=== PATIENT | female | born 1935 | race Caucasian/White ===

== ENCOUNTER 2017-04-20 10:01 | Inpatient (IN) | payer MEDICAID ==
[~2017-04-20] VITALS: Ht 165.1 cm; Wt 57.2 kg
[2017-04-20] MEDS ORDERED: ASPIRIN 81 MG TAB PO STA (10:07)
[2017-04-20 10:39] VITALS: Ht 165.1 cm; Wt 57.2 kg
[2017-04-20] MEDS ORDERED: SOD CHLORIDE 0.9% 250 ML IV ONE (10:59)
--- NOTE | 2017-04-20 11:46 | RADRPT ---
PROCEDURE: XR Chest. CLINICAL INDICATION: Chest pain TECHNIQUE: Single portable view of the chest was obtained COMPARISON: None FINDINGS: The heart is enlarged. There are scattered bilateral perihilar atelectatic changes. There is no focal consolidation. There is no pleural effusion or pneumothorax. RPTAT: AA IMPRESSION: Mild Cardiomegaly. Scattered bilateral perihilar linear atelectatic changes. .Ruben Quinn MD, MD Date Time Electronically viewed and signed by .Ruben Quinn MD, MD on 04/20/2017 11:46 .S/
--- NOTE | 2017-04-20 12:54 | ERD ---
ER Documentation Chief Complaint Chief Complaint PT BIBA FOR SOB X 1 DAY, 02 SAT IS 100% HPI This is a 81-year-old female who speaks Urdu. An language interpreter was used. The patient describes shortness of breath for approximately 24 hours. She states that she was in a parking lot just prior to arrival became short of breath. Patient denied any chest pain or chest pressure. She denies any vomiting, hematemesis or melena. She denies any history of anemia. No fevers or chills or cough. She does note increasing social stressors recently. Symptoms are improving upon arrival. ROS All systems reviewed and are negative except as per history of present illness. Medications Home Meds No Active Prescriptions or Reported Meds Allergies Allergies: Coded Allergies: No Known Allergy (Unverified , 04/20/17) PMhx/Soc Medical and Surgical Hx: pt denies Medical Hx, pt denies Surgical Hx Hx Alcohol Use: No Hx Substance Use: No Hx Tobacco Use: No Smoking Status: Never smoker FmHx Family History: No diabetes Physical Exam Vitals Vital Signs Date Time Temp Pulse Resp B/P Pulse Ox O2 Delivery O2 Flow Rate FiO2 04/20/17 12:25 63 29 125/47 100 Room Air 04/20/17 10:39 98.6 71 25 125/47 100 Physical Exam General: Well developed, well nourished, no acute distress Head: Normocephalic, atraumatic. Eyes: Pupils equally reactive, EOM intact ENT: Moist mucous membranes Neck: Supple, no lymphadenopathy Respiratory: Lungs clear bilaterally, no distress Cardiovascular: RRR, no murmurs, rubs, or gallops Abdominal: Soft, non-tender, non-distended, no peritoneal signs : Deferred MSK: No edema, no unilateral swelling, 5/5 strength Neurologic: Alert and oriented, moving all extremities, normal speech, no focal weakness, no cerebellar signs Skin: No rash Psych: Anxious Result Diagram: 04/20/17 1020 04/20/17 1020 Results 24 hrs Laboratory Tests Test 04/20/17 10:20 White Blood Count 8.210^3/ul Red Blood Count 3.3610^6/ul Hemoglobin 6.5g/dl Hematocrit 23.1% Mean Corpuscular Volume 68.8fl Mean Corpuscular Hemoglobin 19.3pg Mean Corpuscular Hemoglobin Concent 28.1g/dl Red Cell Distribution Width 19.0% Platelet Count 02500^3/UL Mean Platelet Volume 8.6fl Neutrophils % % Lymphocytes % % Monocytes % % Eosinophils % % Basophils % % Nucleated Red Blood Cells % 0.4/100WBC Neutrophils # 10^3/ul Lymphocytes # 10^3/ul Monocytes # 10^3/ul Eosinophils # 10^3/ul Basophils # 10^3/ul Nucleated Red Blood Cells # 10^3/ul Sodium Level 142mmol/L Potassium Level 4.0mmol/L Chloride Level 108mmol/L Carbon Dioxide Level 25mmol/L Anion Gap 13 Blood Urea Nitrogen 13mg/dl Creatinine 0.97mg/dl Glucose Level 173mg/dl Calcium Level 9.0mg/dl Troponin I < 0.012ng/ml B-Type Natriuretic Peptide 294PG/ML Current Medications Medications (Trade) Dose Ordered Sig/Jaylen Route PRN Reason Start Time Stop Time Status Last Admin Dose Admin Aspirin 162 mg 162 mg ONCE STAT PO 04/20/17 10:07 04/20/17 10:08 DC 04/20/17 10:35 Sodium Chloride (NS) 250 ml @ 0 mls/hr Q0M ONCE IV 04/20/17 10:59 04/20/17 11:03 DC Ondansetron HCl (Zofran Inj) 4 mg ER BRIDGE PRN IV NAUSEA AND/OR VOMITING 04/20/17 13:00 04/21/17 12:59 Acetaminophen (Tylenol Tab) 650 mg ER BRIDGE PRN PO MILD PAIN/FEVER 04/20/17 13:00 04/21/17 12:59 Procedures/MDM EKG, MONITORS, & DIAGNOSTIC IMAGING: EKG: I reviewed and interpreted a 12-lead EKG. Rhythm: Normal sinus rhythm Ectopy: None Intervals: No abnormalities ST segments: No elevations or depressions T waves: No contiguous inversions Chest x-ray: I reviewed and interpreted a 1 view of the chest Mediastinum: No enlargement Cardiac silhouette: No cardiomegaly Airspace: Clear lung diop bilaterally without evidence of pneumothorax Bones: No evidence of fracture LAB INTERPRETATION: CBC shows evidence of anemia, no evidence of cardiac ischemia MEDICAL DECISION MAKING: The patient presents with shortness of breath. Initially this seemed most consistent with possibly anxiety. Consider possible CHF. The patient did have some exertional symptoms therefore cardiac ischemia cannot be ruled out. EKG was nonischemic and troponin was negative. She was found to have anemia. She denies history of anemia. Using an language interpreter had a prolonged conversation the patient denies any signs of melena or GI bleed. This is likely subacute in the patient requires malignancy workup including colonoscopy. I discussed with the patient and/or family the risks, benefits, alternatives of blood transfusion. This includes allergic reaction and infections including HIV and hepatitis. The patient and/or family were able to verbalize these risks , stated understanding. A document has been signed and placed in the chart. An language interpreter was used for consent. ER COURSE: She was typed and crossmatched for 1 unit of packed red blood cells. She is hemodynamically stable will be admitted for further management. I kept the patient and/or family informed of laboratory and diagnostic imaging results throughout the emergency room course. DISPOSITION PLAN: Telemetry admission for management of shortness breath rule out of ACS and transfusion CONSULTATION: Accepting care team and consultations: I discussed the current laboratory data, diagnostic imaging and emergency care provided. Admitting team: Dr. Grmim Admitting team indication: Insurance directed Departure Diagnosis: Primary Impression: Shortness of breath Additional Impression: Symptomatic anemia Condition: Stable HÉCTOR LLOYD MD Apr 20, 2017 12:54
[2017-04-20] MEDS ORDERED: ACETAMINOPHEN 325 MG TAB PO PRN (13:00)
[2017-04-20] MEDS ORDERED: ONDANSETRON 4 MG INJ IV PRN ×2 (13:00→18:00)
[2017-04-20 13:02] VITALS: TEMP 98.6
[2017-04-20 16:29] VITALS: BP 146/62; PULSE 73; RESP 25
[2017-04-20] MEDS ORDERED: SOD CHLORIDE 0.9% 250 ML IV* ONE (17:37)
--- NOTE | 2017-04-20 17:45 | HP ---
Date/Time of Note Date/Time of Note DATE: 04/20/17 TIME: 17:37 Assessment/Plan VTE Prophylaxis VTE Prophylaxis Intervention: SCD's Lines/Catheters IV [facility]from [facility] [facility] Urinary Cath still in place: No Assessment/Plan Chief Complaint/Hosp Course 1. Severe symptomatic microcytic anemia Patient has a history of hysterectomy hence not a etiology Patient denies any melena but will obtain stool occult sample and GI consultation Status post 1 unit packed red blood cells, will order 1 more unit Obtain iron panel 2. Pain in bilateral hips Pain control Prophylaxis: SCDs Problems: HPI/ROS Admit Date/Time Admit Date/Time Apr 20, 2017 at 12:35 Hx of Present Illness Patient is a 81-year-old female with no significant medical history except for occasional pain in her hips. Patient presents with shortness of breath as well as dizziness and lightheadedness when she gets up for the past 4 days. Patient has no prior history of such symptoms, patient denies any chest pain, melena, constipation,diarrhea or nausea and vomiting. In the ED patient was found to be severely anemic and was ordered a unit of packed red blood cells. Patient does endorse occasional NSAID use but denies excessive use. Patient has no other complaints at this time. ROS Constitutional: improved, no complaints Eyes: no complaints ENT: no complaints Respiratory: no complaints Cardiovascular: no complaints Gastrointestinal: no complaints Genitourinary: no complaints Musculoskeletal: other (Pain in both hips) Skin: no complaints Neurologic: no complaints Endocrine: no complaints Lymphatic: no complaints Psychological: nl mood/affect, no complaints Immunologic: no complaints PMH/Family/Social Past Medical History Pain in hips Past Surgical History Hysterectomy Family History Significant Family History: no pertinent family hx Social History Alcohol Use: none Smoking Status: Never smoker Drug Use: none Exam/Review of Systems Vital Signs Vitals Vital Signs Date Time Temp Pulse Resp B/P Pulse Ox O2 Delivery O2 Flow Rate FiO2 04/20/17 16:29 73 25 146/62 100 Room Air 04/20/17 13:02 98.6 Exam Constitutional: alert, oriented Head: normocephalic Respiratory: clear to auscultation Cardiovascular: regular rate and rhythm Gastrointestinal: soft, No distended Musculoskeletal: nl extremities to inspection Labs Result Diagram: 04/20/17 1020 04/20/17 1020 Medications Medications Current Medications Influenza Virus Vaccine (Fluzone) 0.5 ml ONCE ONCE IM* ; Start 04/20/17 at 18: 30; Stop 04/20/17 at 18:31 BAIRON MCKEON Apr 20, 2017 17:45
[2017-04-20] MEDS ORDERED: ZOLPIDEM 5 MG TAB PO PRN (18:00)
[2017-04-20] MEDS ORDERED: morphine 2 MG INJ IV PRN (18:00)
[2017-04-20] MEDS ORDERED: NACL 0.9% 3 ML SYG IV SCH (18:00)
[2017-04-20] MEDS ORDERED: INFLUENZA VIRUS VACCINE 0.5 ML SYG IM* ONE (18:30)
[2017-04-20 18:33] VITALS: BP 153/69; PULSE 72; RESP 14
[2017-04-20] MEDS: SOD FERRIC GLUC COMPLX 125 MG in SOD CHLORIDE 0.9% 100 ML IVPB SCH (18:48)
[2017-04-20 20:02] VITALS: PULSE 65
[2017-04-20] MEDS: ACETAMINOPHEN 325 MG TAB PO PRN (21:21)
[2017-04-20 23:16] VITALS: PULSE 57
[2017-04-21] VITALS (11 sets, daily range): BP systolic 126–176; BP diastolic 58–76; PULSE 48–56; RESP 16–20
[2017-04-21] MEDS: PANTOPRAZOLE (EC) 40 MG TAB PO SCH (05:12)
[2017-04-21] MEDS: DOCUSATE SODIUM 100 MG CAP PO PRN (09:07)
[2017-04-21] MEDS: ACETAMINOPHEN 325 MG TAB PO PRN (09:07)
--- NOTE | 2017-04-21 11:32 | PN ---
Date/Time of Note Date/Time of Note DATE: 04/21/17 TIME: 11:29 Assessment/Plan VTE Prophylaxis VTE Prophylaxis Intervention: SCD's Lines/Catheters IV Catheter Type (from Nrs): Peripheral IV Urinary Cath still in place: No Assessment/Plan Chief Complaint/Hosp Course 1. Severe symptomatic microcytic anemia Iron panel does not suggest deficiency, patient may have thalassemia Patient has a history of hysterectomy hence not a etiology Patient denies any melena, follow-up on stool occult sample, GI consultation obtained Status post 2 unit packed red blood cells 2. Pain in bilateral hips-stable Pain control Prophylaxis: SCDs Problems: Subjective 24 Hr Interval Summary Constitutional: no complaints Exam/Review of Systems Vital Signs Vitals Vital Signs Date Time Temp Pulse Resp B/P Pulse Ox O2 Delivery O2 Flow Rate FiO2 04/21/17 11:27 98.0 56 16 126/58 97 04/20/17 18:33 Room Air Intake and Output 04/20/17 04/20/17 04/21/17 15:00 23:00 07:00 Intake Total 350 ml 300 ml Balance 350 ml 300 ml Exam Constitutional: alert, oriented Respiratory: clear to auscultation Cardiovascular: regular rate and rhythm Gastrointestinal: soft, No distended Musculoskeletal: nl extremities to inspection Results Result Diagram: 04/21/17 0648 04/21/17 0647 Results 24 hrs Laboratory Tests Test 04/20/17 16:54 04/20/17 22:10 04/21/17 05:54 04/21/17 06:47 Creatine Kinase 36 39 Creatine Kinase Index 1.5 1.3 Creatinine Kinase MB (Mass) 0.55 0.52 Troponin I < 0.012 < 0.012 Lab Scanned Report BLOOD TRANSFUSION Sodium Level 143 Potassium Level 4.2 Chloride Level 108 Carbon Dioxide Level 26 Anion Gap 13 Blood Urea Nitrogen 8 Creatinine 0.69 Glucose Level 90 # Calcium Level 8.7 Phosphorus Level 3.6 Magnesium Level 2.2 Total Bilirubin 0.7 Direct Bilirubin 0.00 Indirect Bilirubin 0.7 Aspartate Amino Transf (AST/SGOT) 21 Alanine Aminotransferase (ALT/SGPT) 28 Alkaline Phosphatase 91 Total Protein 7.6 Albumin 4.2 Globulin 3.40 H Albumin/Globulin Ratio 1.23 Test 04/21/17 06:48 White Blood Count 8.2 Red Blood Count 4.60 # Hemoglobin 9.8 #L Hematocrit 33.6 #L Mean Corpuscular Volume 73.0 L Mean Corpuscular Hemoglobin 21.3 L Mean Corpuscular Hemoglobin Concent 29.2 L Red Cell Distribution Width 20.4 H Platelet Count 503 H Mean Platelet Volume 8.6 Neutrophils % 77.9 H Lymphocytes % 9.5 L Monocytes % 8.6 Eosinophils % 2.7 Basophils % 0.7 Nucleated Red Blood Cells % 0.2 H Neutrophils # 6.4 Lymphocytes # 0.8 Monocytes # 0.7 Eosinophils # 0.2 Basophils # 0.1 Nucleated Red Blood Cells # 0.0 Hemoglobin A1c 5.4 Iron Level 319 H Total Iron Binding Capacity 408 Percent Iron Saturation 78 H Alpha Fetoprotein 1.47 Carcinoembryonic Antigen 1.6 CA 19-9 Antigen 14.7 CA 125 Antigen 16.2 Medications Medications Current Medications Ondansetron HCl (Zofran Inj) 4 mg Q6H PRN IV NAUSEA AND/OR VOMITING; Start at 18:00 Acetaminophen (Tylenol Tab) 650 mg Q6H PRN PO PAIN LEVEL 1-3 OR FEVER Last administered on 04/21/17 09:07; Admin Dose 650 MG; Start 04/20/17 at 18:00 Acetaminophen/ Hydrocodone Bitart ([place] (5/325)) 1 tab Q6H PRN PO MODERATE PAIN LEVEL 4-6; Start 04/20/17 at 18:00 Morphine Sulfate (morphine) 2 mg Q4H PRN IV SEVERE PAIN LEVEL 7-10; Start at 18:00 Docusate Sodium (Colace) 100 mg Q12H PRN PO CONSTIPATION Last administered on 04/21/17 09:07; Admin Dose 100 MG; Start 04/20/17 at 18:00 Zolpidem Tartrate (Ambien) 5 mg QHS PRN PO SLEEP; Start 04/20/17 at 18:00 Pantoprazole 40 mg 40 mg DAILY@06 PO Last administered on 04/21/17 05:12; Admin Dose 40 MG; Start 04/21/17 at 06:00 Ferric Sodium Gluconate Complex/ Sodium Chloride (Ferrlecit/NS) 110 ml @ 100 mls/hr Q24H IVPB Last administered on 04/20/17 18:48; Admin Dose 100 MLS/HR; Start 04/20/17 at 18:00; Stop 04/22/17 at 19:05 BAIRON MCKEON Apr 21, 2017 11:32
--- NOTE | 2017-04-21 12:18 | CONS ---
Date/Time of Note Date/Time of Note DATE: 04/21/17 TIME: 11:55 Assessment/Plan Assessment/Plan Chief Complaint/Hosp Course Summary Assessment and Plan: Assessment: Anemia Plan: Ct scan abd/pelvis to r/o mass- pending results will plan for EGD/Colonoscopy Endoscopy - risks/benefits/alternatives/indications of procedure and sedation/ anesthesia discussed with patient who states understanding and gives informed consent to proceed. all questions were answered.. Patient seen in collaboration with Dr. Wilson Chief Complaint/Reason for Visit: Symptomatic anemia History of Present Illness: This is a pleasant 81-year-old [place]ian-speaking female ([facility] ) presenting to the ER with shortness of breath, and weakness. Upon evaluation in the ER patient was shown to have severe microcytic anemia, 2 units of blood were given and hemoglobin stabilized. Stool for Ob has been ordered, but not obtained as of yet. Chest x-ray was completed showing mild cardiomegaly, and scattered bilateral perihilar linear atelectatic changes.. She denies abdominal pain, however, during assessment did complain of mild left lower quadrant discomfort with palpation. She denies hematemesis, hematochezia, nausea, or diarrhea. She normally has regular bowel movements however, has not had a bowel movement since Wednesday. She also complains of unintentional weight loss about 15-20 pounds in 4 months. She has never had an upper endoscopy or colonoscopy and there is no family history of colon cancer. Will move forward to ct abd pelvis if negative willplan for EGD/colonoscopy. Past Medical History: No pertinent past medical history Allergies: No known allergies Family History: Family history of colon cancer Social History: Denies alcohol use Denies smoking Denies drug use PHYSICAL EXAMINATION: GENERAL: Well developed, well nourished, alert & oriented x 3, in no acute distress SKIN: No lesions, no stigmata chronic liver disease, no evidence of bleeding diathesis LYMPHATIC: No palpable lymphadenopathy. HEAD: Normocephalic, atraumatic, no tenderness. EYES: Pupils equal reactive to light and accommodation, full extraocular movements, sclera clear, non-icteric, no discharge. EARS/NOSE AND THROAT: Ears normal, nose normal, oropharynx normal, oral membranes well hydrated without lesions. NECK: Supple, no masses, thyroid normal, JVP within normal limits, carotids normal without bruits. CHEST: Inspection within normal limits. CARDIOVASCULAR: Heart: Regular rate and rhythm, no murmurs, gallops or rubs. Peripheral pulses present within normal limits, no cyanosis, clubbing or edemas. No pulsatile abdominal mass RESPIRATORY: Lungs clear to auscultation and percussion, no wheezing, no rubs GASTROINTESTINAL AND LIVER: Abdomen: Soft, LLQ tenderness with palpation, non- distended, no hernias, no masses, no organomegaly, no ascites, no guarding, no rebound tenderness, normoactive bowel sounds. Rectal: No perianal disease, no masses GENITOURINARY: Female genitalia within normal limits. EXTREMITIES: No cyanosis, clubbing or edema. Problems: Consultation Date/Type/Reason Admit Date/Time Apr 20, 2017 at 12:35 Date of Consultation: Apr 21, 2017 Type of Consultation: GI Reason for Consultation Anemia Constitutional: no complaints Eyes: no complaints ENT: no complaints Respiratory: no complaints Cardiovascular: no complaints Gastrointestinal: no complaints Genitourinary: no complaints Musculoskeletal: other (Pain in both hips) Skin: no complaints Neurologic: no complaints Lymphatic: no complaints Psychological: nl mood/affect, no complaints Immunologic: no complaints Past Medical History Medical History: no pertinent history Family History Significant Family History: other (No family history of colon cancer) Social History Alcohol Use: none Smoking Status: Never smoker Drug Use: none Exam/Review of Systems Vital Signs Vitals Vital Signs Date Time Temp Pulse Resp B/P Pulse Ox O2 Delivery O2 Flow Rate FiO2 04/21/17 11:27 98.0 56 16 126/58 97 04/20/17 18:33 Room Air Intake and Output 04/20/17 04/20/17 04/21/17 15:00 23:00 07:00 Intake Total 350 ml 300 ml Balance 350 ml 300 ml Results Result Diagram: 04/21/17 0648 04/21/17 0647 Results 24 hrs Laboratory Tests Test 04/20/17 16:54 04/20/17 22:10 04/21/17 05:54 04/21/17 06:47 Creatine Kinase 36 39 Creatine Kinase Index 1.5 1.3 Creatinine Kinase MB (Mass) 0.55 0.52 Troponin I < 0.012 < 0.012 Lab Scanned Report BLOOD TRANSFUSION Sodium Level 143 Potassium Level 4.2 Chloride Level 108 Carbon Dioxide Level 26 Anion Gap 13 Blood Urea Nitrogen 8 Creatinine 0.69 Glucose Level 90 # Calcium Level 8.7 Phosphorus Level 3.6 Magnesium Level 2.2 Total Bilirubin 0.7 Direct Bilirubin 0.00 Indirect Bilirubin 0.7 Aspartate Amino Transf (AST/SGOT) 21 Alanine Aminotransferase (ALT/SGPT) 28 Alkaline Phosphatase 91 Total Protein 7.6 Albumin 4.2 Globulin 3.40 H Albumin/Globulin Ratio 1.23 Test 04/21/17 06:48 White Blood Count 8.2 Red Blood Count 4.60 # Hemoglobin 9.8 #L Hematocrit 33.6 #L Mean Corpuscular Volume 73.0 L Mean Corpuscular Hemoglobin 21.3 L Mean Corpuscular Hemoglobin Concent 29.2 L Red Cell Distribution Width 20.4 H Platelet Count 503 H Mean Platelet Volume 8.6 Neutrophils % 77.9 H Lymphocytes % 9.5 L Monocytes % 8.6 Eosinophils % 2.7 Basophils % 0.7 Nucleated Red Blood Cells % 0.2 H Neutrophils # 6.4 Lymphocytes # 0.8 Monocytes # 0.7 Eosinophils # 0.2 Basophils # 0.1 Nucleated Red Blood Cells # 0.0 Hemoglobin A1c 5.4 Iron Level 319 H Total Iron Binding Capacity 408 Percent Iron Saturation 78 H Alpha Fetoprotein 1.47 Carcinoembryonic Antigen 1.6 CA 19-9 Antigen 14.7 CA 125 Antigen 16.2 Medications Medications Current Medications Ondansetron HCl (Zofran Inj) 4 mg Q6H PRN IV NAUSEA AND/OR VOMITING; Start at 18:00 Acetaminophen (Tylenol Tab) 650 mg Q6H PRN PO PAIN LEVEL 1-3 OR FEVER Last administered on 04/21/17 09:07; Admin Dose 650 MG; Start 04/20/17 at 18:00 Acetaminophen/ Hydrocodone Bitart ([place] (5/325)) 1 tab Q6H PRN PO MODERATE PAIN LEVEL 4-6; Start 04/20/17 at 18:00 Morphine Sulfate (morphine) 2 mg Q4H PRN IV SEVERE PAIN LEVEL 7-10; Start at 18:00 Docusate Sodium (Colace) 100 mg Q12H PRN PO CONSTIPATION Last administered on 04/21/17 09:07; Admin Dose 100 MG; Start 04/20/17 at 18:00 Zolpidem Tartrate (Ambien) 5 mg QHS PRN PO SLEEP; Start 04/20/17 at 18:00 Pantoprazole 40 mg 40 mg DAILY@06 PO Last administered on 04/21/17 05:12; Admin Dose 40 MG; Start 04/21/17 at 06:00 Ferric Sodium Gluconate Complex/ Sodium Chloride (Ferrlecit/NS) 110 ml @ 100 mls/hr Q24H IVPB Last administered on 04/20/17 18:48; Admin Dose 100 MLS/HR; Start 04/20/17 at 18:00; Stop 04/22/17 at 19:05 Copies To: CC: FIDEL WILSON MD, VICTORIA Apr 21, 2017 12:06
[2017-04-21] MEDS ORDERED: BARIUM SULF 2% 450 ML BTL (BERRY SMOOTHIE) PO ONE (14:00)
[2017-04-21] MEDS: SOD FERRIC GLUC COMPLX 125 MG in SOD CHLORIDE 0.9% 100 ML IVPB SCH (18:27)
--- NOTE | 2017-04-21 22:15 | CONS ---
Date/Time of Note Date/Time of Note DATE: 04/21/17 TIME: 22:14 Assessment/Plan Assessment/Plan Chief Complaint/Hosp Course Severe symptomatic microcytic anemia PROCEED WITH ANEMIA W-UP PRBC TIBC is elevated suggesting iron deficiency CT abdomen and pelvis GI EVAL -endoscopy CONSIDER iv iron f-up as outpt Problems: Consultation Date/Type/Reason Admit Date/Time Apr 20, 2017 at 12:35 Date of Consultation: Apr 21, 2017 Type of Consultation: hemeonc Reason for Consultation anemia Referring Provider: BAIRON MCKEON Hx of Present Illness Patient is a 81-year-old female with no significant medical history except for occasional pain in her hips. Patient presents with shortness of breath as well as dizziness and lightheadedness when she gets up for the past 4 days. Patient has no prior history of such symptoms, patient denies any chest pain, melena, constipation,diarrhea or nausea and vomiting. In the ED patient was found to be severely anemic and was ordered a unit of packed red blood cells. Patient does endorse occasional NSAID use but denies excessive use. Patient has no other complaints at this time. ROS Constitutional: improved, no complaints Eyes: no complaints ENT: no complaints Respiratory: no complaints Cardiovascular: no complaints Gastrointestinal: no complaints Genitourinary: no complaints Musculoskeletal: other (Pain in both hips) Skin: no complaints Neurologic: no complaints Endocrine: no complaints Lymphatic: no complaints Psychological: nl mood/affect, no complaints Immunologic: no complaints PMH/Family/Social Past Medical History Pain in hips Past Surgical History Hysterectomy Family History Significant Family History: no pertinent family hx Social History Alcohol Use: none Smoking Status: Never smoker Drug Use: none Constitutional: no complaints Eyes: no complaints ENT: no complaints Respiratory: no complaints Cardiovascular: no complaints Gastrointestinal: no complaints Genitourinary: no complaints Musculoskeletal: other (Pain in both hips) Skin: no complaints Neurologic: no complaints Lymphatic: no complaints Psychological: nl mood/affect, no complaints Immunologic: no complaints Past Medical History Medical History: no pertinent history Social History Alcohol Use: none Smoking Status: Never smoker Drug Use: none Exam/Review of Systems Vital Signs Vitals Vital Signs Date Time Temp Pulse Resp B/P Pulse Ox O2 Delivery O2 Flow Rate FiO2 04/21/17 20:00 54 04/21/17 20:00 98.2 17 150/70 98 04/20/17 18:33 Room Air Intake and Output 04/20/17 04/20/17 04/21/17 15:00 23:00 07:00 Intake Total 350 ml 300 ml Balance 350 ml 300 ml Exam Constitutional: alert, oriented Respiratory: clear to auscultation Cardiovascular: regular rate and rhythm Gastrointestinal: soft, No distended Musculoskeletal: nl extremities to inspection Results Result Diagram: 04/21/17 0648 04/21/17 0647 Results 24 hrs Laboratory Tests Test 04/21/17 05:54 04/21/17 06:47 04/21/17 06:48 04/21/17 13:00 Lab Scanned Report BLOOD TRANSFUSION Sodium Level 143 Potassium Level 4.2 Chloride Level 108 Carbon Dioxide Level 26 Anion Gap 13 Blood Urea Nitrogen 8 Creatinine 0.69 Glucose Level 90 # Calcium Level 8.7 Phosphorus Level 3.6 Magnesium Level 2.2 Total Bilirubin 0.7 Direct Bilirubin 0.00 Indirect Bilirubin 0.7 Aspartate Amino Transf (AST/SGOT) 21 Alanine Aminotransferase (ALT/SGPT) 28 Alkaline Phosphatase 91 Total Protein 7.6 Albumin 4.2 Globulin 3.40 H Albumin/Globulin Ratio 1.23 White Blood Count 8.2 Red Blood Count 4.60 # Hemoglobin 9.8 #L Hematocrit 33.6 #L Mean Corpuscular Volume 73.0 L Mean Corpuscular Hemoglobin 21.3 L Mean Corpuscular Hemoglobin Concent 29.2 L Red Cell Distribution Width 20.4 H Platelet Count 503 H Mean Platelet Volume 8.6 Neutrophils % 77.9 H Lymphocytes % 9.5 L Monocytes % 8.6 Eosinophils % 2.7 Basophils % 0.7 Nucleated Red Blood Cells % 0.2 H Neutrophils # 6.4 Lymphocytes # 0.8 Monocytes # 0.7 Eosinophils # 0.2 Basophils # 0.1 Nucleated Red Blood Cells # 0.0 Hemoglobin A1c 5.4 Iron Level 319 H Total Iron Binding Capacity 408 Percent Iron Saturation 78 H Alpha Fetoprotein 1.47 Carcinoembryonic Antigen 1.6 CA 19-9 Antigen 14.7 CA 125 Antigen 16.2 Stool Occult Blood POSITIVE Medications Medications Current Medications Ondansetron HCl (Zofran Inj) 4 mg Q6H PRN IV NAUSEA AND/OR VOMITING; Start at 18:00 Acetaminophen (Tylenol Tab) 650 mg Q6H PRN PO PAIN LEVEL 1-3 OR FEVER Last administered on 04/21/17 09:07; Admin Dose 650 MG; Start 04/20/17 at 18:00 Acetaminophen/ Hydrocodone Bitart ([place] (5/325)) 1 tab Q6H PRN PO MODERATE PAIN LEVEL 4-6; Start 04/20/17 at 18:00 Morphine Sulfate (morphine) 2 mg Q4H PRN IV SEVERE PAIN LEVEL 7-10; Start at 18:00 Docusate Sodium (Colace) 100 mg Q12H PRN PO CONSTIPATION Last administered on 04/21/17 09:07; Admin Dose 100 MG; Start 04/20/17 at 18:00 Zolpidem Tartrate (Ambien) 5 mg QHS PRN PO SLEEP; Start 04/20/17 at 18:00 Pantoprazole 40 mg 40 mg DAILY@06 PO Last administered on 04/21/17 05:12; Admin Dose 40 MG; Start 04/21/17 at 06:00 Ferric Sodium Gluconate Complex/ Sodium Chloride (Ferrlecit/NS) 110 ml @ 100 mls/hr Q24H IVPB Last administered on 04/21/17 18:27; Admin Dose 100 MLS/HR; Start 04/20/17 at 18:00; Stop 04/22/17 at 19:05 BRANDY BONILLA MD Apr 21, 2017 22:15
[2017-04-22] VITALS (13 sets, daily range): BP systolic 118–178; BP diastolic 54–81; PULSE 51–77; RESP 16–20
[2017-04-22] MEDS: PANTOPRAZOLE (EC) 40 MG TAB PO SCH (05:53)
[2017-04-22] MEDS ORDERED: SOD CHLORIDE 0.9% 100 ML ONE (10:21)
[2017-04-22] MEDS ORDERED: IOHEXOL 300MG/ML 150 ML BTL ONE (10:21)
--- NOTE | 2017-04-22 15:25 | PN ---
Date/Time of Note Date/Time of Note DATE: 04/22/17 TIME: 15:22 Assessment/Plan VTE Prophylaxis VTE Prophylaxis Intervention: SCD's Lines/Catheters IV [facility] ([facility] Peripheral IV Urinary Cath still in place: No Assessment/Plan Chief Complaint/Hosp Course Summary Assessment and Plan: Assessment: Anemia gastric ca vs PUD, vs lower gi bleed Plan: Stool (+) for OB plan for EGD/Colonoscopy tomorrow evening Clear liquids today and for breakfast then NPO Endoscopy - risks/benefits/alternatives/indications of procedure and sedation/ anesthesia discussed with patient who states understanding and gives informed consent to proceed. all questions were answered.. Patient seen in collaboration with Dr. Wilson Subjective: Course reviewed with nursing staff Patient interviewed and examined All labs, imaging and other results reviewed The patient agrees to EGD/colon tomorrow PHYSICAL EXAMINATION: GENERAL: Well developed, well nourished, alert & oriented x 3, in no acute distress SKIN: No lesions, no stigmata chronic liver disease, no evidence of bleeding diathesis LYMPHATIC: No palpable lymphadenopathy. HEAD: Normocephalic, atraumatic, no tenderness. EYES: Pupils equal reactive to light and accommodation, full extraocular movements, sclera clear, non-icteric, no discharge. EARS/NOSE AND THROAT: Ears normal, nose normal, oropharynx normal, oral membranes well hydrated without lesions. NECK: Supple, no masses, thyroid normal, JVP within normal limits, carotids normal without bruits. CHEST: Inspection within normal limits. CARDIOVASCULAR: Heart: Regular rate and rhythm, no murmurs, gallops or rubs. Peripheral pulses present within normal limits, no cyanosis, clubbing or edemas. No pulsatile abdominal mass RESPIRATORY: Lungs clear to auscultation and percussion, no wheezing, no rubs GASTROINTESTINAL AND LIVER: Abdomen: Soft, LLQ tenderness with palpation, non- distended, no hernias, no masses, no organomegaly, no ascites, no guarding, no rebound tenderness, normoactive bowel sounds. GENITOURINARY: Female genitalia within normal limits. EXTREMITIES: No cyanosis, clubbing or edema. Problems: Exam/Review of Systems Vital Signs Vitals Vital Signs Date Time Temp Pulse Resp B/P Pulse Ox O2 Delivery O2 Flow Rate FiO2 04/22/17 12:07 77 04/22/17 11:42 97.2 18 178/81 95 04/20/17 18:33 Room Air Intake and Output 04/21/17 04/21/17 04/22/17 15:00 23:00 07:00 Intake Total 850 ml 500 ml Balance 850 ml 500 ml Results Result Diagram: 04/22/17 0515 04/21/17 0647 Results 24 hrs Laboratory Tests Test 04/22/17 05:15 White Blood Count 9.1 Red Blood Count 4.53 Hemoglobin 9.5 L Hematocrit 32.7 L Mean Corpuscular Volume 72.2 L Mean Corpuscular Hemoglobin 21.0 L Mean Corpuscular Hemoglobin Concent 29.1 L Red Cell Distribution Width 21.3 H Platelet Count 534 H Mean Platelet Volume 8.6 Neutrophils % 67.7 Lymphocytes % 16.1 Monocytes % 11.2 H Eosinophils % 3.3 Basophils % 1.0 Nucleated Red Blood Cells % 0.3 H Neutrophils # 6.1 Lymphocytes # 1.5 Monocytes # 1.0 H Eosinophils # 0.3 Basophils # 0.1 Nucleated Red Blood Cells # 0.0 Medications Medications Current Medications Ondansetron HCl (Zofran Inj) 4 mg Q6H PRN IV NAUSEA AND/OR VOMITING; Start at 18:00 Acetaminophen (Tylenol Tab) 650 mg Q6H PRN PO PAIN LEVEL 1-3 OR FEVER Last administered on 04/21/17 09:07; Admin Dose 650 MG; Start 04/20/17 at 18:00 Acetaminophen/ Hydrocodone Bitart ([place] (5/325)) 1 tab Q6H PRN PO MODERATE PAIN LEVEL 4-6; Start 04/20/17 at 18:00 Morphine Sulfate (morphine) 2 mg Q4H PRN IV SEVERE PAIN LEVEL 7-10; Start at 18:00 Docusate Sodium (Colace) 100 mg Q12H PRN PO CONSTIPATION Last administered on 04/21/17 09:07; Admin Dose 100 MG; Start 04/20/17 at 18:00 Zolpidem Tartrate (Ambien) 5 mg QHS PRN PO SLEEP; Start 04/20/17 at 18:00 Pantoprazole 40 mg 40 mg DAILY@06 PO Last administered on 04/22/17 05:53; Admin Dose 40 MG; Start 10/25/17 at 06:00 Ferric Sodium Gluconate Complex/ Sodium Chloride (Ferrlecit/NS) 110 ml @ 100 mls/hr Q24H IVPB Last administered on 04/21/17t 18:27; Admin Dose 100 MLS/HR; Start 04/20/17 at 18:00; Stop 04/22/17 at 19:05 TAMI CARR Apr 22, 2017 15:25
[2017-04-22] MEDS ORDERED: BISACODYL (EC) 5 MG TAB PO ONE (15:30)
--- NOTE | 2017-04-22 16:16 | RADRPT ---
PROCEDURE: CT Abdomen and Pelvis with contrast. CLINICAL INDICATION: Abdomen and pelvis pain. Anemia and weight loss. TECHNIQUE: CT scan of the abdomen and pelvis with contrast was performed. The patient was scanned following the uncomplicated intravenous administration of 95 cc of Omnipaque-300. Coronal and sagit rock reformatted images were obtained from the axial source images. Images were reviewed on a [employer] PACS workstation. Total exam DLP is 508.31 mGy-cm. CTDIvol is 9.50 mGy. One or more of t he following dose reduction techniques were used: Automated exposure control, adjustment of the mA a nd/or kV according to patient size, use of iterative reconstruction technique. COMPARISON: None. FINDINGS: The lung bases are normal. There is no pleural effusion or pericardial effusion. The heart is enlar ged. The liver is normal in size and attenuation. There is no focal hepatic lesion. The gallbladder and bile ducts are normal. The spleen is normal in size. There is no focal splenic lesion. Both adrenals are normal with no enlargement or mass. The pancreas is unremarkable with no mass or evidence of pancreatitis. Both kidneys demonstrate normal contrast enhancement. There is no renal mass or hydronephrosis. The abdominal aorta is not dilated. There is calcification in the aorta consistent with atherosclero sis There is no retroperitoneal lymphadenopathy or mass. There is no pelvic lymphadenopathy or mass. The bladder and distal ureters are normal. The periappendiceal region is unremarkable with no evidence of appendicitis. The bowel and mesentery are normal. There is no free fluid or free gas. There are degenerative changes of the spine. The osseous structures are otherwise unremarkable with no fracture or lytic lesion. IMPRESSION: 1. Atherosclerosis. 2. Degenerative changes of the spine. 3. Otherwise unremarkable CT scan of the abdomen and pelvis. RPTAT: QQ .Jefferson Greene MD, MD Date Time Electronically viewed and signed by .Jefferson Greene MD, on 04/22/2017 16:16 .R/
[2017-04-22] MEDS: SOD FERRIC GLUC COMPLX 125 MG in SOD CHLORIDE 0.9% 100 ML IVPB SCH (17:07)
[2017-04-22] MEDS: DOCUSATE SODIUM 100 MG CAP PO PRN (17:07)
[2017-04-22] MEDS: ACETAMINOPHEN 325 MG TAB PO PRN (17:07)
[2017-04-22] MEDS ORDERED: MAGNESIUM CITRATE 300 ML BTL PO ONE (17:30)
--- NOTE | 2017-04-22 17:58 | PN ---
Date/Time of Note Date/Time of Note DATE: 04/22/17 TIME: 17:56 Assessment/Plan VTE Prophylaxis VTE Prophylaxis Intervention: SCD's Lines/Catheters IV Catheter Type (from Nrsg): Peripheral IV Urinary Cath still in place: No Assessment/Plan Chief Complaint/Hosp Course 1. Severe symptomatic microcytic anemia TIBC is elevated suggesting iron deficiency CT abdomen and pelvis shows no significant findings Plan is for endoscopy tomorrow Hematology consultation appreciated Status post 2 unit packed red blood cells 2. Pain in bilateral hips-stable Pain control Prophylaxis: SCDs Problems: Subjective 24 Hr Interval Summary Constitutional: no complaints Exam/Review of Systems Vital Signs Vitals Vital Signs Date Time Temp Pulse Resp B/P Pulse Ox O2 Delivery O2 Flow Rate FiO2 04/22/17 16:09 70 04/22/17 16:01 98.3 16 124/58 99 04/20/17 18:33 Room Air Intake and Output 04/21/17 04/21/17 04/22/17 15:00 23:00 07:00 Intake Total 850 ml 500 ml Balance 850 ml 500 ml Exam Constitutional: alert, oriented Respiratory: clear to auscultation Cardiovascular: regular rate and rhythm Gastrointestinal: soft, No distended Musculoskeletal: nl extremities to inspection Results Result Diagram: 04/22/17 0515 04/21/17 0647 Results 24 hrs Laboratory Tests Test 04/22/17 05:15 White Blood Count 9.1 Red Blood Count 4.53 Hemoglobin 9.5 L Hematocrit 32.7 L Mean Corpuscular Volume 72.2 L Mean Corpuscular Hemoglobin 21.0 L Mean Corpuscular Hemoglobin Concent 29.1 L Red Cell Distribution Width 21.3 H Platelet Count 534 H Mean Platelet Volume 8.6 Neutrophils % 67.7 Lymphocytes % 16.1 Monocytes % 11.2 H Eosinophils % 3.3 Basophils % 1.0 Nucleated Red Blood Cells % 0.3 H Neutrophils # 6.1 Lymphocytes # 1.5 Monocytes # 1.0 H Eosinophils # 0.3 Basophils # 0.1 Nucleated Red Blood Cells # 0.0 Medications Medications Current Medications Ondansetron HCl (Zofran Inj) 4 mg Q6H PRN IV NAUSEA AND/OR VOMITING; Start at 18:00 Acetaminophen (Tylenol Tab) 650 mg Q6H PRN PO PAIN LEVEL 1-3 OR FEVER Last administered on 04/22/17 17:07; Admin Dose 650 MG; Start 04/20/17 at 18:00 Acetaminophen/ Hydrocodone Bitart ([place] (5/325)) 1 tab Q6H PRN PO MODERATE PAIN LEVEL 4-6; Start 04/20/17 at 18:00 Morphine Sulfate (morphine) 2 mg Q4H PRN IV SEVERE PAIN LEVEL 7-10; Start at 18:00 Docusate Sodium (Colace) 100 mg Q12H PRN PO CONSTIPATION Last administered on 04/22/17 17:07; Admin Dose 100 MG; Start 04/20/17 at 18:00 Zolpidem Tartrate (Ambien) 5 mg QHS PRN PO SLEEP; Start 04/20/17 at 18:00 Pantoprazole 40 mg 40 mg DAILY@06 PO Last administered on 04/22/17 05:53; Admin Dose 40 MG; Start 04/21/17 at 06:00 Ferric Sodium Gluconate Complex/ Sodium Chloride (Ferrlecit/NS) 110 ml @ 100 mls/hr Q24H IVPB Last administered on 04/22/17 17:07; Admin Dose 100 MLS/HR; Start 04/20/17 at 18:00; Stop 04/22/17 at 19:05 Polyethylene Glycol (Miralax) 119 gm ONCE ONCE PO Last administered on 17:06; Admin Dose 119 GM; Start 04/22/17 at 18:30; Stop 04/22/17 at 18:31 BAIRON MCKEON Apr 22, 2017 17:58
[2017-04-22] MEDS ORDERED: POLYETHYLENE GLYCOL 3350 119 GM POWDER PO ONE (18:30)
--- NOTE | 2017-04-22 18:35 | CONS ---
Date/Time of Note Date/Time of Note DATE: 04/22/17 TIME: 18:35 Assessment/Plan Assessment/Plan Chief Complaint/Hosp Course Severe symptomatic microcytic anemia TIBC is elevated suggesting iron deficiency CT abdomen and pelvis shows no significant findings endoscopy today Status post 2 unit packed red blood cells iv iron f-up as outpt Problems: Consultation Date/Type/Reason Admit Date/Time Apr 20, 2017 at 12:35 Initial Consult Date 04/21/17 Type of Consultation: hemeonc Referring Provider: BAIRON MCKEON 24 HR Interval Summary Free Text/Dictation ALL NOTED POST PRBC NO ACTIVE BLEEDING Exam/Review of Systems Vital Signs Vitals Vital Signs Date Time Temp Pulse Resp B/P Pulse Ox O2 Delivery O2 Flow Rate FiO2 04/22/17 16:09 70 04/22/17 16:01 98.3 16 124/58 99 04/20/17 18:33 Room Air Intake and Output 04/21/17 04/21/17 04/22/17 15:00 23:00 07:00 Intake Total 850 ml 500 ml Balance 850 ml 500 ml Exam GENERAL: Well developed, well nourished, alert & oriented x 3, in no acute distress SKIN: No lesions, no stigmata chronic liver disease, no evidence of bleeding diathesis LYMPHATIC: No palpable lymphadenopathy. HEAD: Normocephalic, atraumatic, no tenderness. EYES: Pupils equal reactive to light and accommodation, full extraocular movements, sclera clear, non-icteric, no discharge. EARS/NOSE AND THROAT: Ears normal, nose normal, oropharynx normal, oral membranes well hydrated without lesions. NECK: Supple, no masses, thyroid normal, JVP within normal limits, carotids normal without bruits. CHEST: Inspection within normal limits. CARDIOVASCULAR: Heart: Regular rate and rhythm, no murmurs, gallops or rubs. Peripheral pulses present within normal limits, no cyanosis, clubbing or edemas. No pulsatile abdominal mass RESPIRATORY: Lungs clear to auscultation and percussion, no wheezing, no rubs GASTROINTESTINAL AND LIVER: Abdomen: Soft, LLQ tenderness with palpation, non- distended, no hernias, no masses, no organomegaly, no ascites, no guarding, no rebound tenderness, normoactive bowel sounds. Rectal: No perianal disease, no masses GENITOURINARY: Female genitalia within normal limits. EXTREMITIES: No cyanosis, clubbing or edema. Results Result Diagram: 04/22/17 0515 04/21/17 0647 Results 24 hrs Laboratory Tests Test 04/22/17 05:15 White Blood Count 9.1 Red Blood Count 4.53 Hemoglobin 9.5 L Hematocrit 32.7 L Mean Corpuscular Volume 72.2 L Mean Corpuscular Hemoglobin 21.0 L Mean Corpuscular Hemoglobin Concent 29.1 L Red Cell Distribution Width 21.3 H Platelet Count 534 H Mean Platelet Volume 8.6 Neutrophils % 67.7 Lymphocytes % 16.1 Monocytes % 11.2 H Eosinophils % 3.3 Basophils % 1.0 Nucleated Red Blood Cells % 0.3 H Neutrophils # 6.1 Lymphocytes # 1.5 Monocytes # 1.0 H Eosinophils # 0.3 Basophils # 0.1 Nucleated Red Blood Cells # 0.0 Medications Medications Current Medications Ondansetron HCl (Zofran Inj) 4 mg Q6H PRN IV NAUSEA AND/OR VOMITING; Start at 18:00 Acetaminophen (Tylenol Tab) 650 mg Q6H PRN PO PAIN LEVEL 1-3 OR FEVER Last administered on 04/22/17 17:07; Admin Dose 650 MG; Start 04/20/17 at 18:00 Acetaminophen/ Hydrocodone Bitart ([place] (5/325)) 1 tab Q6H PRN PO MODERATE PAIN LEVEL 4-6; Start 04/20/17 at 18:00 Morphine Sulfate (morphine) 2 mg Q4H PRN IV SEVERE PAIN LEVEL 7-10; Start at 18:00 Docusate Sodium (Colace) 100 mg Q12H PRN PO CONSTIPATION Last administered on 04/22/17 17:07; Admin Dose 100 MG; Start 04/20/17 at 18:00 Zolpidem Tartrate (Ambien) 5 mg QHS PRN PO SLEEP; Start 04/20/17 at 18:00 Pantoprazole 40 mg 40 mg DAILY@06 PO Last administered on 04/22/17 05:53; Admin Dose 40 MG; Start 04/21/17 at 06:00 Ferric Sodium Gluconate Complex/ Sodium Chloride (Ferrlecit/NS) 110 ml @ 100 mls/hr Q24H IVPB Last administered on 04/22/17 17:07; Admin Dose 100 MLS/HR; Start 04/20/17 at 18:00; Stop 04/22/17 at 19:05 BRANDY BONILLA MD Apr 22, 2017 18:35
[2017-04-23] VITALS (22 sets, daily range): BP systolic 61–194; BP diastolic 31–82; PULSE 50–90; RESP 14–23
[2017-04-23] MEDS ORDERED: POLYETHYLENE GLYCOL 3350 119 GM POWDER PO ONE (06:00)
[2017-04-23] MEDS: PANTOPRAZOLE (EC) 40 MG TAB PO SCH (06:52)
[2017-04-23] MEDS ORDERED: BISACODYL (EC) 5 MG TAB PO ONE (08:00)
--- NOTE | 2017-04-23 11:22 | PN ---
Date/Time of Note Date/Time of Note DATE: 04/23/17 TIME: 11:19 Assessment/Plan VTE Prophylaxis VTE Prophylaxis Intervention: SCD's Lines/Catheters IV Catheter Type (from Nrs): [place] Urinary Cath still in place: No Assessment/Plan Chief Complaint/Hosp Course 1. Severe symptomatic microcytic anemia TIBC is elevated suggesting iron deficiency CT abdomen and pelvis shows no significant findings Plan is for endoscopy today Hematology consultation appreciated Status post 2 unit packed red blood cells 2. Pain in bilateral hips-stable Pain control Prophylaxis: SCDs Problems: Subjective 24 Hr Interval Summary Constitutional: no complaints Exam/Review of Systems Vital Signs Vitals Vital Signs Date Time Temp Pulse Resp B/P Pulse Ox O2 Delivery O2 Flow Rate FiO2 04/23/17 08:05 57 04/23/17 07:42 97.2 18 138/62 98 04/20/17 18:33 Room Air Intake and Output 04/22/17 04/22/17 04/23/17 15:00 23:00 07:00 Intake Total 850 ml 400 ml Balance 850 ml 400 ml Exam Constitutional: alert, oriented Respiratory: clear to auscultation Cardiovascular: regular rate and rhythm Gastrointestinal: soft, No distended Musculoskeletal: nl extremities to inspection Results Result Diagram: 04/23/17 0648 04/23/17 0648 Results 24 hrs Laboratory Tests Test 04/23/17 06:48 White Blood Count 9.3 Red Blood Count 4.62 Hemoglobin 9.9 L Hematocrit 34.4 L Mean Corpuscular Volume 74.5 L Mean Corpuscular Hemoglobin 21.4 L Mean Corpuscular Hemoglobin Concent 28.8 L Red Cell Distribution Width 22.3 H Platelet Count 597 H Mean Platelet Volume 8.7 Neutrophils % 72.7 Lymphocytes % 14.4 L Monocytes % 10.0 Eosinophils % 1.5 Basophils % 0.9 Nucleated Red Blood Cells % 0.0 Neutrophils # 6.8 Lymphocytes # 1.3 Monocytes # 0.9 Eosinophils # 0.1 Basophils # 0.1 Nucleated Red Blood Cells # 0.0 Sodium Level 142 Potassium Level 4.2 Chloride Level 105 Carbon Dioxide Level 27 Anion Gap 14 Blood Urea Nitrogen 11 Creatinine 0.76 Glucose Level 95 Calcium Level 8.9 Medications Medications Current Medications Ondansetron HCl (Zofran Inj) 4 mg Q6H PRN IV NAUSEA AND/OR VOMITING; Start at 18:00 Acetaminophen (Tylenol Tab) 650 mg Q6H PRN PO PAIN LEVEL 1-3 OR FEVER Last administered on 04/22/17 17:07; Admin Dose 650 MG; Start 04/20/17 at 18:00 Acetaminophen/ Hydrocodone Bitart ([place] (5/325)) 1 tab Q6H PRN PO MODERATE PAIN LEVEL 4-6; Start 04/20/17 at 18:00 Morphine Sulfate (morphine) 2 mg Q4H PRN IV SEVERE PAIN LEVEL 7-10; Start at 18:00 Docusate Sodium (Colace) 100 mg Q12H PRN PO CONSTIPATION Last administered on 04/22/17 17:07; Admin Dose 100 MG; Start 04/20/17 at 18:00 Zolpidem Tartrate (Ambien) 5 mg QHS PRN PO SLEEP; Start 04/20/17 at 18:00 Pantoprazole (Protonix Tab) 40 mg DAILY@06 PO Last administered on 04/23/17 06:52; Admin Dose 40 MG; Start 04/21/17 at 06:00 BAIRON MCKEON Apr 23, 2017 11:22
--- NOTE | 2017-04-23 12:46 | CONS ---
Date/Time of Note Date/Time of Note DATE: 04/23/17 TIME: 12:43 Assessment/Plan Assessment/Plan Chief Complaint/Hosp Course Severe symptomatic microcytic anemia TIBC is elevated suggesting iron deficiency CT abdomen and pelvis shows no significant findings endoscopy today Status post 2 unit packed red blood cells iv iron f-up as outpt Problems: Consultation Date/Type/Reason Admit Date/Time Apr 20, 2017 at 12:35 Initial Consult Date 04/21/17 Type of Consultation: hemeon Referring Provider: BAIRON MCKEON 24 HR Interval Summary Free Text/Dictation all noted no active bleeding GI on the case Exam/Review of Systems Vital Signs Vitals Vital Signs Date Time Temp Pulse Resp B/P Pulse Ox O2 Delivery O2 Flow Rate FiO2 04/23/17 12:05 84 04/23/17 11:42 98.6 16 161/65 98 04/20/17 18:33 Room Air Intake and Output 04/22/17 04/22/17 04/23/17 15:00 23:00 07:00 Intake Total 850 ml 400 ml Balance 850 ml 400 ml Exam General: Well developed, well nourished, no acute distress Head: Normocephalic, atraumatic. Eyes: Pupils equally reactive, EOM intact ENT: Moist mucous membranes Neck: Supple, no lymphadenopathy Respiratory: Lungs clear bilaterally, no distress Cardiovascular: RRR, no murmurs, rubs, or gallops Abdominal: Soft, non-tender, non-distended, no peritoneal signs : Deferred MSK: No edema, no unilateral swelling, 5/5 strength Neurologic: Alert and oriented, moving all extremities, normal speech, no focal weakness, no cerebellar signs Skin: No rash Psych: Anxious Results Result Diagram: 04/23/17 0648 04/23/17 0648 Results 24 hrs Laboratory Tests Test 04/23/17 06:48 White Blood Count 9.3 Red Blood Count 4.62 Hemoglobin 9.9 L Hematocrit 34.4 L Mean Corpuscular Volume 74.5 L Mean Corpuscular Hemoglobin 21.4 L Mean Corpuscular Hemoglobin Concent 28.8 L Red Cell Distribution Width 22.3 H Platelet Count 597 H Mean Platelet Volume 8.7 Neutrophils % 72.7 Lymphocytes % 14.4 L Monocytes % 10.0 Eosinophils % 1.5 Basophils % 0.9 Nucleated Red Blood Cells % 0.0 Neutrophils # 6.8 Lymphocytes # 1.3 Monocytes # 0.9 Eosinophils # 0.1 Basophils # 0.1 Nucleated Red Blood Cells # 0.0 Sodium Level 142 Potassium Level 4.2 Chloride Level 105 Carbon Dioxide Level 27 Anion Gap 14 Blood Urea Nitrogen 11 Creatinine 0.76 Glucose Level 95 Calcium Level 8.9 Medications Medications Current Medications Ondansetron HCl (Zofran Inj) 4 mg Q6H PRN IV NAUSEA AND/OR VOMITING; Start at 18:00 Acetaminophen (Tylenol Tab) 650 mg Q6H PRN PO PAIN LEVEL 1-3 OR FEVER Last administered on 04/22/17 17:07; Admin Dose 650 MG; Start 04/20/17 at 18:00 Acetaminophen/ Hydrocodone Bitart ([place] (5/325)) 1 tab Q6H PRN PO MODERATE PAIN LEVEL 4-6; Start 04/20/17 at 18:00 Morphine Sulfate (morphine) 2 mg Q4H PRN IV SEVERE PAIN LEVEL 7-10; Start at 18:00 Docusate Sodium (Colace) 100 mg Q12H PRN PO CONSTIPATION Last administered on 04/22/17 17:07; Admin Dose 100 MG; Start 04/20/17 at 18:00 Zolpidem Tartrate (Ambien) 5 mg QHS PRN PO SLEEP; Start 04/20/17 at 18:00 Pantoprazole (Protonix Tab) 40 mg DAILY@06 PO Last administered on 04/23/17 06:52; Admin Dose 40 MG; Start 04/21/17 at 06:00 BRANDY BONILLA MD Apr 23, 2017 12:46
[2017-04-23] MEDS: SOD FERRIC GLUC COMPLX 125 MG in SOD CHLORIDE 0.9% 100 ML IVPB SCH (15:15)
[2017-04-23] MEDS ORDERED: LIDOCAINE 2% (SDV) 5 ML INJ ONE (18:01)
[2017-04-23] MEDS ORDERED: PROPOFOL 40 ML ONE (18:01)
--- NOTE | 2017-04-23 18:39 | HPN ---
Date/Time of Note Date/Time of Note DATE: 04/23/17 TIME: 18:39 Interval H&P Admission Note Pt. seen H&P reviewed: No system changes FIDEL AG MD Apr 23, 2017 18:39
--- NOTE | 2017-04-23 18:42 | OPPN ---
Date/Time of Note Date/Time of Note DATE: 04/23/17 TIME: 18:40 Proc Note GI Procedure Date 04/23/17 Indication: other (Anemia) Pre-procedure Diagnosis Anemia Post-procedure Diagnosis Impression: Moderate gastritis. Rule out H. pylori infection. Biopsies obtained Mild distal esophagitis. Otherwise normal EGD. Plan: Continue PPI therapy Review pathology as soon as available. Proceed with colonoscopy as planned. . Procedure Performed: Endoscopy (With biopsies) Surgeon FIDEL AG MD See signature line Insurance Verify Rep none Anesthesia Type: MAC Anesthesiologist: KM ASIF Tourniquet Time none EBL none Transfusion required none Biopsy 1: Gastric body and antrum/rule out H. pylori infection Grafts/Implants none Tubes/Drains none Complication(s) none Disposition: PACU Procedure Description Preoperative Diagnosis: After informed consent, with the patient/relatives understanding the procedure, its indications, potential risks and complications, including but not limited to : allergic reaction, bleeding, perforation or infection, and after all pertinent questions were answered to the patients satisfaction, the patient/ relatives signed witnessed informed consent. Following this, premedication was administered slowly IV push under careful cardiovascular and respiratory monitoring with pulse oximetry, automatic blood pressure, and safekeeping clerk. Once the sedative effect was achieved the patient was place in the left lateral decubitus, the panendoscope was introduced and advanced under visual control. Careful examination of the upper gastrointestinal tract, both on insertion as well as withdrawal of the instrument disclosing the following findings: ESOPHAGUS: the mucosa of the entire esophagus was carefully examined and showed the following findings: There is mild erythema of the mucosa at the esophagogastric junction. Otherwise the mucosa appears within normal limits. There is no evidence of varices, neoplasm, or stricture. No Hiatal Hernia identified. STOMACH: Upon entrance to the stomach air was insufflated, the gastric newell distended normally. The mucosa of the fundus, body and antrum of the stomach was carefully examined both head-on and on retroflexion, and showed the following findings: There is moderate erythema and edema of the mucosa of the antrum. Biopsies were obtained to rule out H. pylori infection. Otherwise the mucosa appears within normal limits with no abnormalities. There is no evidence of ulcers or neoplasm. PYLORUS: The pylorus was carefully examined and showed the following findings: the pylorus appears patent and within normal limits, with no evidence of gastric outlet obstruction. DUODENUM: The duodenal mucosa was carefully examined in the duodenal bulb as well as the second portion of the duodenum and showed the following findings: the mucosa appears unremarkable with no evidence of duodenitis, ulcer or neoplasm. Copies To: CC: FIDEL AG MD, MORDO MD Apr 23, 2017 18:42
--- NOTE | 2017-04-23 18:44 | OPPN ---
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 Multiple biopsies obtained Moderate-sized internal hemorrhoids Otherwise normal colonoscopy to cecum. Plan: Review pathology as soon as available CT abdomen and pelvis with contrast CEA titers Surgical consult . Procedure Performed: Colonoscopy (Plus biopsies) Surgeon FIDEL AG MD See signature line Drying Machine Back Tender none Anesthesia Type: MAC Anesthesiologist: KM ASIF Tourniquet Time none EBL none Transfusion required none Biopsy 1: Proximal ascending colon mass Grafts/Implants none Tubes/Drains none Complication(s) none Disposition: PACU Procedure Description After informed consent, with the patient/relatives understanding the procedure, its indications and potential risks and complications, including but not limited to: Allergic reaction, bleeding, perforation, infection, and after all pertinent questions were answered to the patient's satisfaction, the patient/ relatives signed the witnessed informed consent. Following this, premedication was administered slowly IV push under careful cardiovascular and respiratory monitoring with pulse OXIMETRY, automatic blood pressure, and front end software engineer. Once the sedative effect was achieved, the patient was placed in the left lateral decubitus position, digital rectal examination was performed. The colonoscope was then introduced and advanced under visual control throughout all segments of the colon including: the rectum, sigmoid, descending colon, splenic flexure, transverse colon, hepatic flexure, ascending colon and finally reaching the cecum which was clearly identified by transillumination, finger indentation and the ileocecal valve. Careful examination of the mucosa of the lower gastrointestinal tract both on insertion as well as withdrawal of the instrument disclosed the following findings: PREPARATION QUALITY: [Adequate], RECTAL EXAM: The anorectal area was visualized examined and digital rectal examination performed with the following findings: No evidence of perirectal disease, no masses. COLONIC MUCOSA: The mucosa of all segments of the colon was carefully examined and showed the following findings: There is a large semicircumferential mass opposite to the ileocecal valve. The mass is clearly malignant in nature. Multiple biopsies were obtained. Otherwise the examined mucosa appears within normal limits. There is no evidence of inflammatory changes, diverticular formation, polyps or other neoplasms, vascular malformation, or any other abnormality. The instrument was then withdrawn, the patient tolerated the procedure well and was transferred out of the Endoscopy Suite awake and in good condition to continue recovery under observation. Copies To: CC: FIDEL AG MD, MORDO MD Apr 23, 2017 18:44
[2017-04-23] MEDS ORDERED: EPHEDrine SULFATE 50 MG/5 ML SYG ONE (18:47)
[2017-04-23] MEDS ORDERED: EPHEDrine SULFATE 50 MG/5 ML SYG IV PRN (19:30)
[2017-04-23] MEDS ORDERED: BARIUM SULF 2% 450 ML BTL (BERRY SMOOTHIE) PO ONE (20:00)
[2017-04-23] MEDS: ACETAMINOPHEN 325 MG TAB PO PRN (23:01)
[2017-04-24] VITALS (13 sets, daily range): BP systolic 109–164; BP diastolic 55–72; PULSE 43–71; RESP 16–20
[2017-04-24] MEDS: PANTOPRAZOLE (EC) 40 MG TAB PO SCH (05:29)
--- NOTE | 2017-04-24 11:08 | PN ---
Date/Time of Note Date/Time of Note DATE: 04/24/17 TIME: 11:06 Assessment/Plan VTE Prophylaxis VTE Prophylaxis Intervention: SCD's Lines/Catheters IV Catheter Type (from Nrsg): [facility] Urinary Cath still in place: No Assessment/Plan Chief Complaint/Hosp Course 1. Severe symptomatic microcytic anemia Colonoscopy showed semicircumferential malignant mass proximal ascending colon opposite the ileocecal valve, EGD shows gastritis Follow-up on biopsies Repeat CT abdomen ordered TIBC is elevated suggesting iron deficiency CT abdomen and pelvis shows no significant findings Hematology consultation appreciated Status post 2 unit packed red blood cells 2. Pain in bilateral hips-stable Pain control Prophylaxis: SCDs Problems: Subjective 24 Hr Interval Summary Constitutional: no complaints Exam/Review of Systems Vital Signs Vitals Vital Signs Date Time Temp Pulse Resp B/P Pulse Ox O2 Delivery O2 Flow Rate FiO2 04/24/17 08:05 57 04/24/17 07:40 98.0 18 141/67 97 04/23/17 19:22 Room Air Intake and Output 04/23/17 04/23/17 04/24/17 15:00 23:00 07:00 Intake Total 50 ml Output Total 1 ml Balance -1 ml 50 ml Exam Constitutional: alert, oriented Respiratory: clear to auscultation Cardiovascular: regular rate and rhythm Gastrointestinal: soft, No distended Musculoskeletal: nl extremities to inspection Results Result Diagram: 04/23/17 0648 04/23/17 0648 Results 24 hrs Laboratory Tests Test 04/24/17 05:34 Carcinoembryonic Antigen 1.2 Medications Medications Current Medications Ondansetron HCl (Zofran Inj) 4 mg Q6H PRN IV NAUSEA AND/OR VOMITING; Start at 18:00 Acetaminophen (Tylenol Tab) 650 mg Q6H PRN PO PAIN LEVEL 1-3 OR FEVER Last administered on 04/23/17t 23:01; Admin Dose 650 MG; Start 04/20/17 at 18:00 Acetaminophen/ Hydrocodone Bitart ([place] (5/325)) 1 tab Q6H PRN PO MODERATE PAIN LEVEL 4-6; Start 04/20/17 at 18:00 Morphine Sulfate (morphine) 2 mg Q4H PRN IV SEVERE PAIN LEVEL 7-10; Start at 18:00 Docusate Sodium (Colace) 100 mg Q12H PRN PO CONSTIPATION Last administered on 04/22/17 17:07; Admin Dose 100 MG; Start 04/20/17 at 18:00 Zolpidem Tartrate (Ambien) 5 mg QHS PRN PO SLEEP; Start 04/20/17 at 18:00 Pantoprazole 40 mg 40 mg DAILY@06 PO Last administered on 04/23/17 06:52; Admin Dose 40 MG; Start 04/21/17 at 06:00 Ferric Sodium Gluconate Complex/ Sodium Chloride (Ferrlecit/NS) 110 ml @ 110 mls/hr Q24H IVPB Last administered on 04/23/17 15:15; Admin Dose 110 MLS/HR; Start 04/23/17 at 15:00; Stop 04/27/17 at 15:59 BAIRON MCKEON Apr 24, 2017 11:08
[2017-04-24] MEDS ORDERED: IOHEXOL 300MG/ML 150 ML BTL ONE (11:10)
[2017-04-24] MEDS ORDERED: SOD CHLORIDE 0.9% 100 ML ONE (11:10)
--- NOTE | 2017-04-24 12:00 | RADRPT ---
PROCEDURE: CT abdomen and pelvis with contrast. CLINICAL INDICATION: Right colic mass TECHNIQUE: CT scan of the abdomen and pelvis with oral contrast was performed and is reconstructed at 2.5 mm contiguous axial intervals from the dome of the diaphragm to the inferior pubic rami.. T he patient was scanned with intravenous contrast. Sagittal and coronal reformatted images were obta ined from the axial source images. The calculated radiation dose measures 327 mGy centimeters. The C TDI measures 6 mGy. Individualized dose optimization technique was used for the performance of this exam. This included 1. Automated exposure control. 2. Adjustment of the mA and / or kV according to the patient's size. 3. Use of iterative reconstructed technique. COMPARISON: CT abdomen pelvis April 22, 2017 FINDINGS: No lung infiltrate or mass is seen. There is traction bronchiectasis and honeycombing at the lung ba ses compatible with chronic interstitial lung disease. No effusion is visualized. The liver is of normal size, contour and attenuation with no mass or ductal dilatation. No gallston es are visualized. No splenic, adrenal or pancreatic abnormalities present. Kidneys enhance symmetrically and are of normal size and contour. No hydronephrosis, calculus or m asses seen. Ureters are of normal course and caliber with no stone. No bladder mass or stone is pr esent. Uterus is been removed. No adnexal mass is seen. There is no aneurysm. There are vascular calcifications. No retroperitoneal adenopathy is present. No bowel obstruction is present. Noted is a noncalcified mural based mass within the cecum extendi ng along the anterior aspect of the proximal right colon. There is no evidence of extension of tumor through the serosa. There are sub centimeter right lower quadrant regional nodes. No other mesenter ic adenopathy is present. The appendix is normal.. No phlegmon, ascites or pneumoperitoneum is visu alized. The osseous structures are intact. IMPRESSION: Plaque-like soft tissue mass cecum and proximal ascending colon suspicious for carcinoma. No evidenc e of local extension of tumor. Visible but nonpathologically enlarged regional right lower quadrant nodes. Metastatic disease cannot be ruled out. No evidence of hepatic metastases, retroperitoneal ad enopathy or bony metastases. Chronic interstitial lung disease. Post hysterectomy. .Alfred Whalen MD, MD Date Time Electronically viewed and signed by .Alfred Whalen MD, MD on 04/24/2017 11:59 .A/
--- NOTE | 2017-04-24 12:43 | PN ---
Date/Time of Note Date/Time of Note DATE: 04/24/17 TIME: 12:32 Assessment/Plan VTE Prophylaxis VTE Prophylaxis Intervention: ambulation, SCD's Lines/Catheters [facility] Urinary Cath still in place: No Assessment/Plan Chief Complaint/Hosp Course Summary Assessment and Plan: Assessment: ID Anemia EGD Moderate gastritis. Rule out H. pylori infection. Biopsies obtained Mild distal esophagitis. Otherwise normal EGD. 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 Multiple biopsies obtained Moderate-sized internal hemorrhoids Otherwise normal colonoscopy to cecum. Plan: Review pathology as soon as available CT abdomen and pelvis with contrast- pending CEA titers- negative Plan for Surgical consult Clear liquid diet at this time Patient seen in collaboration with Dr. Wilson Subjective: Course reviewed with nursing staff Patient interviewed and examined All labs, imaging and other results reviewed Discussed finding with family- pathology pending surgeon to see patient PHYSICAL EXAMINATION: GENERAL: Well developed, well nourished, alert & oriented x 3, in no acute distress SKIN: No lesions, no stigmata chronic liver disease, no evidence of bleeding diathesis LYMPHATIC: No palpable lymphadenopathy. HEAD: Normocephalic, atraumatic, no tenderness. EYES: Pupils equal reactive to light and accommodation, full extraocular movements, sclera clear, non-icteric, no discharge. EARS/NOSE AND THROAT: Ears normal, nose normal, oropharynx normal, oral membranes well hydrated without lesions. NECK: Supple, no masses, thyroid normal, JVP within normal limits, carotids normal without bruits. CHEST: Inspection within normal limits. CARDIOVASCULAR: Heart: Regular rate and rhythm, no murmurs, gallops or rubs. Peripheral pulses present within normal limits, no cyanosis, clubbing or edemas. No pulsatile abdominal mass RESPIRATORY: Lungs clear to auscultation and percussion, no wheezing, no rubs GASTROINTESTINAL AND LIVER: Abdomen: Soft, LLQ tenderness with palpation, non- distended, no hernias, no masses, no organomegaly, no ascites, no guarding, no rebound tenderness, normoactive bowel sounds. GENITOURINARY: Female genitalia within normal limits. EXTREMITIES: No cyanosis, clubbing or edema. Problems: Exam/Review of Systems Vital Signs Vitals Vital Signs Date Time Temp Pulse Resp B/P Pulse Ox O2 Delivery O2 Flow Rate FiO2 10/28/17 12:13 70 04/24/17 11:40 98.2 17 126/65 96 04/23/17 19:22 Room Air Intake and Output 04/23/17 04/23/17 04/24/17 15:00 23:00 07:00 Intake Total 50 ml Output Total 1 ml Balance -1 ml 50 ml Results Result Diagram: 04/23/17 0648 04/23/17 0648 Results 24 hrs Laboratory Tests Test 04/24/17 05:34 Carcinoembryonic Antigen 1.2 Medications Medications Current Medications Ondansetron HCl (Zofran Inj) 4 mg Q6H PRN IV NAUSEA AND/OR VOMITING; Start at 18:00 Acetaminophen (Tylenol Tab) 650 mg Q6H PRN PO PAIN LEVEL 1-3 OR FEVER Last administered on 04/23/17 23:01; Admin Dose 650 MG; Start 04/20/17 at 18:00 Acetaminophen/ Hydrocodone Bitart ([place] (5/325)) 1 tab Q6H PRN PO MODERATE PAIN LEVEL 4-6; Start 04/20/17 at 18:00 Morphine Sulfate (morphine) 2 mg Q4H PRN IV SEVERE PAIN LEVEL 7-10; Start at 18:00 Docusate Sodium (Colace) 100 mg Q12H PRN PO CONSTIPATION Last administered on 04/22/17 17:07; Admin Dose 100 MG; Start 04/20/17 at 18:00 Zolpidem Tartrate (Ambien) 5 mg QHS PRN PO SLEEP; Start 04/20/17 at 18:00 Pantoprazole 40 mg 40 mg DAILY@06 PO Last administered on 04/23/17 06:52; Admin Dose 40 MG; Start 04/21/17 at 06:00 Ferric Sodium Gluconate Complex/ Sodium Chloride (Ferrlecit/NS) 110 ml @ 110 mls/hr Q24H IVPB Last administered on 04/23/17 15:15; Admin Dose 110 MLS/HR; Start 04/23/17 at 15:00; Stop 04/27/17 at 15:59 TAMI CARR Apr 24, 2017 12:42
--- NOTE | 2017-04-24 13:26 | CONS ---
Date/Time of Note Date/Time of Note DATE: 04/24/17 TIME: 13:26 Assessment/Plan Assessment/Plan Chief Complaint/Hosp Course Severe symptomatic microcytic anemia WITH COLON MASS TIBC is elevated suggesting iron deficiency CT abdomen and pelvis shows no significant findings endoscopy noted, SURG EVAL - P, PATH - P Status post 2 unit packed red blood cells iv iron Problems: Consultation Date/Type/Reason Admit Date/Time Apr 20, 2017 at 12:35 Initial Consult Date 04/21/17 [facility] Referring Provider: BAIRON MCKEON 24 HR Interval Summary Free Text/Dictation all noted path- p Exam/Review of Systems Vital Signs Vitals Vital Signs Date Time Temp Pulse Resp B/P Pulse Ox O2 Delivery O2 Flow Rate FiO2 04/24/17 12:13 70 04/24/17 11:40 98.2 17 126/65 96 04/23/17 19:22 Room Air Intake and Output 04/23/17 04/23/17 04/24/17 15:00 23:00 07:00 Intake Total 50 ml Output Total 1 ml Balance -1 ml 50 ml Exam GENERAL: Well developed, well nourished, alert & oriented x 3, in no acute distress SKIN: No lesions, no stigmata chronic liver disease, no evidence of bleeding diathesis LYMPHATIC: No palpable lymphadenopathy. HEAD: Normocephalic, atraumatic, no tenderness. EYES: Pupils equal reactive to light and accommodation, full extraocular movements, sclera clear, non-icteric, no discharge. EARS/NOSE AND THROAT: Ears normal, nose normal, oropharynx normal, oral membranes well hydrated without lesions. NECK: Supple, no masses, thyroid normal, JVP within normal limits, carotids normal without bruits. CHEST: Inspection within normal limits. CARDIOVASCULAR: Heart: Regular rate and rhythm, no murmurs, gallops or rubs. Peripheral pulses present within normal limits, no cyanosis, clubbing or edemas. No pulsatile abdominal mass RESPIRATORY: Lungs clear to auscultation and percussion, no wheezing, no rubs GASTROINTESTINAL AND LIVER: Abdomen: Soft, LLQ tenderness with palpation, non- distended, no hernias, no masses, no organomegaly, no ascites, no guarding, no rebound tenderness, normoactive bowel sounds. GENITOURINARY: Female genitalia within normal limits. EXTREMITIES: No cyanosis, clubbing or edema. Results Result Diagram: 04/23/17 0648 04/23/17 0648 Results 24 hrs Laboratory Tests Test 04/24/17 05:34 Carcinoembryonic Antigen 1.2 Medications Medications Current Medications Ondansetron HCl (Zofran Inj) 4 mg Q6H PRN IV NAUSEA AND/OR VOMITING; Start at 18:00 Acetaminophen (Tylenol Tab) 650 mg Q6H PRN PO PAIN LEVEL 1-3 OR FEVER Last administered on 04/23/17 23:01; Admin Dose 650 MG; Start 04/20/17 at 18:00 Acetaminophen/ Hydrocodone Bitart ([place] (5/325)) 1 tab Q6H PRN PO MODERATE PAIN LEVEL 4-6; Start 04/20/17 at 18:00 Morphine Sulfate (morphine) 2 mg Q4H PRN IV SEVERE PAIN LEVEL 7-10; Start at 18:00 Docusate Sodium (Colace) 100 mg Q12H PRN PO CONSTIPATION Last administered on 04/22/17 17:07; Admin Dose 100 MG; Start 04/20/17 at 18:00 Zolpidem Tartrate (Ambien) 5 mg QHS PRN PO SLEEP; Start 04/20/17 at 18:00 Pantoprazole 40 mg 40 mg DAILY@06 PO Last administered on 04/23/17 06:52; Admin Dose 40 MG; Start 04/21/17 at 06:00 Ferric Sodium Gluconate Complex/ Sodium Chloride (Ferrlecit/NS) 110 ml @ 110 mls/hr Q24H IVPB Last administered on 04/23/17 15:15; Admin Dose 110 MLS/HR; Start 04/23/17 at 15:00; Stop 04/27/17 at 15:59 BRANDY BONILLA MD Apr 24, 2017 13:26
[2017-04-24] MEDS: SOD FERRIC GLUC COMPLX 125 MG in SOD CHLORIDE 0.9% 100 ML IVPB SCH (15:43)
[2017-04-25] VITALS (13 sets, daily range): BP systolic 116–169; BP diastolic 52–77; PULSE 54–75; RESP 16–18
[2017-04-25] MEDS: PANTOPRAZOLE (EC) 40 MG TAB PO SCH (05:38)
[2017-04-25] MEDS: SOD FERRIC GLUC COMPLX 125 MG in SOD CHLORIDE 0.9% 100 ML IVPB SCH (15:09)
--- NOTE | 2017-04-25 16:53 | PN ---
Date/Time of Note Date/Time of Note DATE: 04/25/17 TIME: 16:46 Assessment/Plan VTE Prophylaxis VTE Prophylaxis Intervention: SCD's Lines/Catheters IV Catheter Type (from [facility], [place]): Saline Lock Urinary Cath still in place: No Assessment/Plan Chief Complaint/Hosp Course Summary Assessment and Plan: Assessment: ID Anemia EGD Moderate gastritis. Rule out H. pylori infection. Biopsies obtained Mild distal esophagitis. Otherwise normal EGD. 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 Multiple biopsies obtained Moderate-sized internal hemorrhoids Otherwise normal colonoscopy to cecum. Plan: Review pathology as soon as available CT abdomen and pelvis with contrast- reviewed and copied below Plaque-like soft tissue mass cecum and proximal ascending colon suspicious for carcinoma. No evidence of local extension of tumor. Visible but nonpathologically enlarged regional right lower quadrant nodes. Metastatic disease cannot be ruled out. No evidence of hepatic metastases, retroperitoneal adenopathy or bony metastases. Chronic interstitial lung disease. CEA titers- negative Plan for Surgical consult Clear liquid diet at this time until seen by surgeon Patient seen in collaboration with Dr. Wilson Subjective: Course reviewed with nursing staff Patient interviewed and examined All labs, imaging and other results reviewed The patient feels ok no c/o abd pain, nausea or vomiting pathology is pending PHYSICAL EXAMINATION: GENERAL: Well developed, well nourished, alert & oriented x 3, in no acute distress SKIN: No lesions, no stigmata chronic liver disease, no evidence of bleeding diathesis LYMPHATIC: No palpable lymphadenopathy. HEAD: Normocephalic, atraumatic, no tenderness. EYES: Pupils equal reactive to light and accommodation, full extraocular movements, sclera clear, non-icteric, no discharge. EARS/NOSE AND THROAT: Ears normal, nose normal, oropharynx normal, oral membranes well hydrated without lesions. NECK: Supple, no masses, thyroid normal, JVP within normal limits, carotids normal without bruits. CHEST: Inspection within normal limits. CARDIOVASCULAR: Heart: Regular rate and rhythm, no murmurs, gallops or rubs. Peripheral pulses present within normal limits, no cyanosis, clubbing or edemas. No pulsatile abdominal mass RESPIRATORY: Lungs clear to auscultation and percussion, no wheezing, no rubs GASTROINTESTINAL AND LIVER: Abdomen: Soft, LLQ tenderness with palpation, non- distended, no hernias, no masses, no organomegaly, no ascites, no guarding, no rebound tenderness, normoactive bowel sounds. GENITOURINARY: Female genitalia within normal limits. EXTREMITIES: No cyanosis, clubbing or edema. Problems: Exam/Review of Systems Vital Signs Vitals Vital Signs Date Time Temp Pulse Resp B/P Pulse Ox O2 Delivery O2 Flow Rate FiO2 04/25/17 16:04 65 04/25/17 15:55 98.6 16 169/77 98 04/23/17 19:22 Room Air Intake and Output 04/24/17 04/24/17 04/25/17 15:00 23:00 07:00 Intake Total 400 ml Balance 400 ml Results Result Diagram: 04/23/1748 04/23/17647 Medications Medications Current Medications Ondansetron HCl (Zofran Inj) 4 mg Q6H PRN IV NAUSEA AND/OR VOMITING; Start at 18:00 Acetaminophen (Tylenol Tab) 650 mg Q6H PRN PO PAIN LEVEL 1-3 OR FEVER Last administered on 04/23/17 23:01; Admin Dose 650 MG; Start 04/20/17 at 18:00 Acetaminophen/ Hydrocodone Bitart ([place] (5/325)) 1 tab Q6H PRN PO MODERATE PAIN LEVEL 4-6; Start 04/20/17 at 18:00 Morphine Sulfate (morphine) 2 mg Q4H PRN IV SEVERE PAIN LEVEL 7-10; Start at 18:00 Docusate Sodium (Colace) 100 mg Q12H PRN PO CONSTIPATION Last administered on 04/22/17 17:07; Admin Dose 100 MG; Start 04/20/17 at 18:00 Zolpidem Tartrate (Ambien) 5 mg QHS PRN PO SLEEP; Start 04/20/17 at 18:00 Pantoprazole 40 mg 40 mg DAILY@06 PO Last administered on 04/23/17 06:52; Admin Dose 40 MG; Start 04/21/17 at 06:00 Ferric Sodium Gluconate Complex/ Sodium Chloride (Ferrlecit/NS) 110 ml @ 110 mls/hr Q24H IVPB Last administered on 04/25/17 15:09; Admin Dose 110 MLS/HR; Start 04/23/17 at 15:00; Stop 04/27/17 at 15:59 TAMI CARR Apr 25, 2017 16:53
--- NOTE | 2017-04-25 18:07 | PN ---
Date/Time of Note Date/Time of Note DATE: 04/25/17 TIME: 18:05 Assessment/Plan VTE Prophylaxis VTE Prophylaxis Intervention: SCD's Lines/Catheters IV Catheter Type (from Nrsg): Saline Lock Urinary Cath still in place: No Assessment/Plan Chief Complaint/Hosp Course 1. Severe symptomatic microcytic anemia Colonoscopy showed semicircumferential malignant mass proximal ascending colon opposite the ileocecal valve, EGD shows gastritis Follow-up on biopsies, will await pathology results before consulting surgery hence surgery has not been consulted as of yet Repeat CT abdomen does show a mass in the cecum, there is no evidence of any metastasis TIBC is elevated suggesting iron deficiency Hematology consultation appreciated Status post 2 unit packed red blood cells 2. Pain in bilateral hips-stable Pain control Prophylaxis: SCDs Problems: Subjective 24 Hr Interval Summary Constitutional: no complaints Exam/Review of Systems Vital Signs Vitals Vital Signs Date Time Temp Pulse Resp B/P Pulse Ox O2 Delivery O2 Flow Rate FiO2 04/25/17 16:04 65 04/25/17 15:55 98.6 16 169/77 98 04/23/17 19:22 Room Air Intake and Output 04/24/17 04/24/17 04/25/17 15:00 23:00 07:00 Intake Total 400 ml Balance 400 ml Exam Constitutional: alert, oriented Respiratory: clear to auscultation Cardiovascular: regular rate and rhythm Gastrointestinal: soft, No distended Musculoskeletal: nl extremities to inspection Results Result Diagram: 04/23/17 0648 04/23/1748 Medications Medications Current Medications Ondansetron HCl (Zofran Inj) 4 mg Q6H PRN IV NAUSEA AND/OR VOMITING; Start at 18:00 Acetaminophen (Tylenol Tab) 650 mg Q6H PRN PO PAIN LEVEL 1-3 OR FEVER Last administered on 04/23/17t 23:01; Admin Dose 650 MG; Start 04/20/17 at 18:00 Acetaminophen/ Hydrocodone Bitart ([place] (5/325)) 1 tab Q6H PRN PO MODERATE PAIN LEVEL 4-6; Start 04/20/17 at 18:00 Morphine Sulfate (morphine) 2 mg Q4H PRN IV SEVERE PAIN LEVEL 7-10; Start at 18:00 Docusate Sodium (Colace) 100 mg Q12H PRN PO CONSTIPATION Last administered on 04/22/17 17:07; Admin Dose 100 MG; Start 04/20/17 at 18:00 Zolpidem Tartrate (Ambien) 5 mg QHS PRN PO SLEEP; Start 04/20/17 at 18:00 Pantoprazole 40 mg 40 mg DAILY@06 PO Last administered on 04/23/17 06:52; Admin Dose 40 MG; Start 04/21/17 at 06:00 Ferric Sodium Gluconate Complex/ Sodium Chloride (Ferrlecit/NS) 110 ml @ 110 mls/hr Q24H IVPB Last administered on 04/25/17 15:09; Admin Dose 110 MLS/HR; Start 04/23/17 at 15:00; Stop 04/27/17 at 15:59 BAIRON MCKEON Apr 25, 2017 18:07
--- NOTE | 2017-04-25 19:58 | CONS ---
Date/Time of Note Date/Time of Note DATE: 04/25/17 TIME: 19:56 Assessment/Plan Assessment/Plan Chief Complaint/Hosp Course Severe symptomatic microcytic anemia TIBC is elevated suggesting iron deficiency CT abdomen and pelvis reviewed Status post 2 unit packed red blood cells iv iron f-up as outpt endoscopy EGD Moderate gastritis. Rule out H. pylori infection. Biopsies obtained Mild distal esophagitis. Otherwise normal EGD. 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 Multiple biopsies obtained Moderate-sized internal hemorrhoids Otherwise normal colonoscopy to cecum. PATH- P CT abdomen and pelvis with contrast Plaque-like soft tissue mass cecum and proximal ascending colon suspicious for carcinoma. No evidence of local extension of tumor. Visible but nonpathologically enlarged regional right lower quadrant nodes. Metastatic disease cannot be ruled out. No evidence of hepatic metastases, retroperitoneal adenopathy or bony metastases. Chronic interstitial lung disease. CEA titers- negative surgical eval Problems: Consultation Date/Type/Reason Admit Date/Time Apr 20, 2017 at 12:35 Initial Consult Date 04/21/17 Type of Consultation: [facility] Referring Provider: BAIRON MCKEON 24 HR Interval Summary Free Text/Dictation ALL NOTED EGD Moderate gastritis. Rule out H. pylori infection. Biopsies obtained Mild distal esophagitis. Otherwise normal EGD. 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 Multiple biopsies obtained Moderate-sized internal hemorrhoids Otherwise normal colonoscopy to cecum. PATH- P CT abdomen and pelvis with contrast Plaque-like soft tissue mass cecum and proximal ascending colon suspicious for carcinoma. No evidence of local extension of tumor. Visible but nonpathologically enlarged regional right lower quadrant nodes. Metastatic disease cannot be ruled out. No evidence of hepatic metastases, retroperitoneal adenopathy or bony metastases. Chronic interstitial lung disease. CEA titers- negative Exam/Review of Systems Vital Signs Vitals Vital Signs Date Time Temp Pulse Resp B/P Pulse Ox O2 Delivery O2 Flow Rate FiO2 04/25/17 16:04 65 04/25/17 15:55 98.6 16 169/77 98 04/23/17 19:22 Room Air Intake and Output 04/24/17 04/24/17 04/25/17 15:00 23:00 07:00 Intake Total 400 ml Balance 400 ml Exam GENERAL: Well developed, well nourished, alert & oriented x 3, in no acute distress SKIN: No lesions, no stigmata chronic liver disease, no evidence of bleeding diathesis LYMPHATIC: No palpable lymphadenopathy. HEAD: Normocephalic, atraumatic, no tenderness. EYES: Pupils equal reactive to light and accommodation, full extraocular movements, sclera clear, non-icteric, no discharge. EARS/NOSE AND THROAT: Ears normal, nose normal, oropharynx normal, oral membranes well hydrated without lesions. NECK: Supple, no masses, thyroid normal, JVP within normal limits, carotids normal without bruits. CHEST: Inspection within normal limits. CARDIOVASCULAR: Heart: Regular rate and rhythm, no murmurs, gallops or rubs. Peripheral pulses present within normal limits, no cyanosis, clubbing or edemas. No pulsatile abdominal mass RESPIRATORY: Lungs clear to auscultation and percussion, no wheezing, no rubs GASTROINTESTINAL AND LIVER: Abdomen: Soft, LLQ tenderness with palpation, non- distended, no hernias, no masses, no organomegaly, no ascites, no guarding, no rebound tenderness, normoactive bowel sounds. GENITOURINARY: Female genitalia within normal limits. EXTREMITIES: No cyanosis, clubbing or edema. Results Result Diagram: 04/23/1764704/23/17647 Medications Medications Current Medications Ondansetron HCl (Zofran Inj) 4 mg Q6H PRN IV NAUSEA AND/OR VOMITING; Start at 18:00 Acetaminophen (Tylenol Tab) 650 mg Q6H PRN PO PAIN LEVEL 1-3 OR FEVER Last administered on 04/23/17 23:01; Admin Dose 650 MG; Start 04/20/17 at 18:00 Acetaminophen/ Hydrocodone Bitart ([place] (5/325)) 1 tab Q6H PRN PO MODERATE PAIN LEVEL 4-6; Start 04/20/17 at 18:00 Morphine Sulfate (morphine) 2 mg Q4H PRN IV SEVERE PAIN LEVEL 7-10; Start at 18:00 Docusate Sodium (Colace) 100 mg Q12H PRN PO CONSTIPATION Last administered on 04/22/17 17:07; Admin Dose 100 MG; Start 04/20/17 at 18:00 Zolpidem Tartrate (Ambien) 5 mg QHS PRN PO SLEEP; Start 04/20/17 at 18:00 Pantoprazole 40 mg 40 mg DAILY@06 PO Last administered on 04/23/17 06:52; Admin Dose 40 MG; Start 04/21/17 at 06:00 Ferric Sodium Gluconate Complex/ Sodium Chloride (Ferrlecit/NS) 110 ml @ 110 mls/hr Q24H IVPB Last administered on 04/25/17 15:09; Admin Dose 110 MLS/HR; Start 04/23/17 at 15:00; Stop 04/27/17 at 15:59 BRANDY BONILLA MD Apr 25, 2017 19:58
[2017-04-26] VITALS (12 sets, daily range): BP systolic 119–163; BP diastolic 58–72; PULSE 54–159; RESP 16–20
[2017-04-26] MEDS: PANTOPRAZOLE (EC) 40 MG TAB PO SCH (06:10)
--- NOTE | 2017-04-26 13:09 | PN ---
Date/Time of Note Date/Time of Note DATE: 04/26/17 TIME: 13:07 Assessment/Plan VTE Prophylaxis VTE Prophylaxis Intervention: LMWH Lines/Catheters [facility] Saline Lock Urinary Cath still in place: No Assessment/Plan Chief Complaint/Hosp Course 81 yo female presenting wt subacute CALDERON foudn to have iron deficiency anemia and newly diagnosed colon cancer - Continue iron for iron deficiency - Surgery consulted, Dr Sheppard - Can likely arrange as outpatient Problems: Subjective 24 Hr Interval Summary Free Text/Dictation Upset that she has not eaten food in so long, unclear what the plan is. Explained likely colon malignancy and need for likely surgery/chemo Path pending Surgery consult, pending Exam/Review of Systems Vital Signs Vitals Vital Signs Date Time Temp Pulse Resp B/P Pulse Ox O2 Delivery O2 Flow Rate FiO2 04/26/17 12:00 64 04/26/17 11:40 98.4 17 141/60 98 04/25/17 19:51 Room Air Intake and Output 04/25/17 04/25/17 04/26/17 15:00 23:00 07:00 Intake Total 2500 ml 200 ml Balance 2500 ml 200 ml Exam Constitutional: alert, oriented, well developed Psych: nl mood/affect, no complaints Head: atraumatic, normocephalic Eyes: EOMI, PERRL, nl conjunctiva, nl lids, nl sclera ENMT: nl external ears & nose, nl lips & teeth, nl nasal mucosa & septum Neck: non-tender, supple Respiratory: clear to auscultation, normal air movement Cardiovascular: nl pulses, regular rate and rhythm Gastrointestinal: nl liver, spleen, non-tender, soft Musculoskeletal: nl extremities to inspection, nl gait and stance Extremities: normal pulses Neurological: [employer] II-XII intact, nl mental status, nl speech, nl strength Skin: nl turgor, No rash or lesions Lymph: nl lymph nodes Results Result Diagram: 04/23/1764704/23/17647 Medications Medications Current Medications Ondansetron HCl (Zofran Inj) 4 mg Q6H PRN IV NAUSEA AND/OR VOMITING; Start at 18:00 Acetaminophen (Tylenol Tab) 650 mg Q6H PRN PO PAIN LEVEL 1-3 OR FEVER Last administered on 04/23/17t 23:01; Admin Dose 650 MG; Start 04/20/17 at 18:00 Acetaminophen/ Hydrocodone Bitart ([place] (5/325)) 1 tab Q6H PRN PO MODERATE PAIN LEVEL 4-6; Start 04/20/17 at 18:00 Morphine Sulfate (morphine) 2 mg Q4H PRN IV SEVERE PAIN LEVEL 7-10; Start at 18:00 Docusate Sodium (Colace) 100 mg Q12H PRN PO CONSTIPATION Last administered on 04/22/17 17:07; Admin Dose 100 MG; Start 04/20/17 at 18:00 Zolpidem Tartrate (Ambien) 5 mg QHS PRN PO SLEEP; Start 04/20/17 at 18:00 Pantoprazole 40 mg 40 mg DAILY@06 PO Last administered on 04/26/17 06:10; Admin Dose 40 MG; Start 04/21/17 at 06:00 Ferric Sodium Gluconate Complex/ Sodium Chloride (Ferrlecit/NS) 110 ml @ 110 mls/hr Q24H IVPB Last administered on 04/25/17 15:09; Admin Dose 110 MLS/HR; Start 04/23/17 at 15:00; Stop 04/27/17 at 15:59 CAMILO SLAUGHTER MD Apr 26, 2017 13:09
[2017-04-26] MEDS: SOD FERRIC GLUC COMPLX 125 MG in SOD CHLORIDE 0.9% 100 ML IVPB SCH (15:28)
[2017-04-26] MEDS ORDERED: METHYLPREDNISOLONE 125 MG INJ IV ONE (16:30)
[2017-04-26] MEDS ORDERED: RANITIDINE 150 MG TAB PO ONE (16:30)
[2017-04-26] MEDS ORDERED: DIPHENHYDRAMINE 50 MG INJ IV ONE (16:30)
--- NOTE | 2017-04-26 22:48 | CONS ---
Date/Time of Note Date/Time of Note DATE: 04/26/17 TIME: 22:46 Assessment/Plan Assessment/Plan Chief Complaint/Hosp Course Severe symptomatic microcytic anemia WITH COLON MASS TIBC is elevated suggesting iron deficiency CT abdomen and pelvis shows no significant findings endoscopy noted, SURG EVAL - P, PATH - P Status post 2 unit packed red blood cells iv iron Path pending PLAN - SURGERY Chronic interstitial lung disease. Post hysterectomy. Problems: Consultation Date/Type/Reason Admit Date/Time Apr 20, 2017 at 12:35 Initial Consult Date 04/21/17 Type of Consultation: [facility]on Referring Provider: BAIRON MCKEON 24 HR Interval Summary Free Text/Dictation ALL NOTED D/W RN Exam/Review of Systems Vital Signs Vitals Vital Signs Date Time Temp Pulse Resp B/P Pulse Ox O2 Delivery O2 Flow Rate FiO2 04/26/17 20:13 98.6 57 20 119/58 97 04/25/17 19:51 Room Air Intake and Output 04/25/17 04/25/17 04/26/17 14:59 22:59 06:59 Intake Total 2500 ml 200 ml Balance 2500 ml 200 ml Exam Constitutional: alert, oriented, well developed Psych: nl mood/affect, no complaints Head: atraumatic, normocephalic Eyes: EOMI, PERRL, nl conjunctiva, nl lids, nl sclera ENMT: nl external ears & nose, nl lips & teeth, nl nasal mucosa & septum Neck: non-tender, supple Respiratory: clear to auscultation, normal air movement Cardiovascular: nl pulses, regular rate and rhythm Gastrointestinal: nl liver, spleen, non-tender, soft Musculoskeletal: nl extremities to inspection, nl gait and stance Extremities: normal pulses Neurological: [employer]ICE [employer] II-XII intact, nl mental status, nl speech, nl strength Skin: nl turgor, No rash or lesions Lymph: nl lymph nodes Results Result Diagram: 04/23/1764704/23/17647 Medications Medications Current Medications Ondansetron HCl (Zofran Inj) 4 mg Q6H PRN IV NAUSEA AND/OR VOMITING; Start at 18:00 Acetaminophen (Tylenol Tab) 650 mg Q6H PRN PO PAIN LEVEL 1-3 OR FEVER Last administered on 04/23/17t 23:01; Admin Dose 650 MG; Start 04/20/17 at 18:00 Acetaminophen/ Hydrocodone Bitart ([place] (5/325)) 1 tab Q6H PRN PO MODERATE PAIN LEVEL 4-6; Start 04/20/17 at 18:00 Docusate Sodium (Colace) 100 mg Q12H PRN PO CONSTIPATION Last administered on 04/22/17 17:07; Admin Dose 100 MG; Start 04/20/17 at 18:00 Zolpidem Tartrate (Ambien) 5 mg QHS PRN PO SLEEP; Start 04/20/17 at 18:00 Pantoprazole 40 mg 40 mg DAILY@06 PO Last administered on 04/26/17 06:10; Admin Dose 40 MG; Start 04/21/17 at 06:00 Ferric Sodium Gluconate Complex/ Sodium Chloride (Ferrlecit/NS) 110 ml @ 110 mls/hr Q24H IVPB Last administered on 04/26/17 15:28; Admin Dose 110 MLS/HR; Start 04/23/17 at 15:00; Stop 04/27/17 at 15:59 BRANDY BONILLA MD Apr 26, 2017 22:48
[2017-04-27] VITALS (13 sets, daily range): BP systolic 130–184; BP diastolic 51–84; PULSE 47–61; RESP 18–20
--- NOTE | 2017-04-27 03:26 | CONS ---
Date/Time of Note Date/Time of Note DATE: 04/26/17 TIME: 11:54 Assessment/Plan Assessment/Plan Chief Complaint/Hosp Course 1. Colon adenocarcinoma -Right colectomy when time available and after medical optimization 2. Gastritis -Diet and lifestyle optimization -Antacids 3. Esophagitis -Diet and lifestyle optimization -Antacids 4. Hemorrhoids -Dietary and lifestyle optimization 5. Slow GI bleed, multifactorial, secondary to above -Transfuse as needed -As above 6. Anemia secondary to above -As above 7. Recent syncope and weakness secondary to above -Medical and cardiac optimization -As above. Thank you very much for consulting me in this patient's care, Late entry 04/26 Problems: Consultation Date/Type/Reason Admit Date/Time Apr 20, 2017 at 12:35 Date of Consultation: Apr 26, 2017 Type of Consultation: General surgical Reason for Consultation Right colonic mass Moderate well differentiated adenocarcinoma Referring Provider: CAMILO SLAUGHTER MD Hx of Present Illness Olga Galvan 81-year-old female who presented syncope weakness and lethargy without fevers, chills, chest pain, shortness of breath. Denies abdominal pain or bloating. Denies visual neurologic changes. Denies dysuria. Denies vaginal discharge. Denies similar episodes. Denies headache, bone pain, lesions. Reports generalized weight loss subjectively. Upon evaluation she was found to have severe anemia and has received packed red blood cells. She also underwent upper and lower endoscopy identifying gastritis and esophagitis and right colonic mass with biopsy-proven adenocarcinoma. The scan of the abdomen and pelvis was negative for metastatic disease however possible local lymphadenopathy. Surgical consult is obtained further evaluation and treatment. Constitutional: no complaints, No chills, No diaphoresis, No febrile Eyes: no complaints ENT: no complaints Respiratory: no complaints Cardiovascular: no complaints Gastrointestinal: flatus, no complaints, passing stool, No nausea, No pain, No vomiting Genitourinary: no complaints Musculoskeletal: back pain, other (Pain in both hips) Skin: no complaints Neurologic: no complaints Lymphatic: no complaints Psychological: nl mood/affect, no complaints Immunologic: no complaints Past Medical History Anemia Lower GI bleed, occult Syncope and weakness Right colonic adenocarcinoma Gastritis Esophagitis Hemorrhoids Past Surgical History Midline abdominal hysterectomy for bleeding Family History Significant Family History: no pertinent family hx Social History Alcohol Use: none Smoking Status: Never smoker Drug Use: none Exam/Review of Systems Vital Signs Vitals Vital Signs Date Time Temp Pulse Resp B/P Pulse Ox O2 Delivery O2 Flow Rate FiO2 04/27/17 00:26 98.1 52 20 130/63 98 04/25/17 19:51 Room Air Intake and Output 04/26/17 04/26/17 04/27/17 15:00 23:00 07:00 Intake Total 1200 ml Balance 1200 ml Exam Constitutional: alert, oriented, No distress Psych: nl mood/affect Head: atraumatic, normocephalic Eyes: EOMI, PERRL, nl conjunctiva, No icteric ENMT: mucosa pink and moist, nl external ears & nose, nl lips & teeth Neck: non-tender, supple, No jvd Respiratory: normal air movement, No congested cough, No labored breathing Cardiovascular: regular rate and rhythm, No edema Gastrointestinal: non-tender, soft, No distended, No firm, No rebound or guarding Musculoskeletal: nl extremities to inspection, No joint tenderness, No range of motion Extremities: normal pulses, No calf tenderness, No cyanosis Neurological: nl mental status, nl speech, nl strength Skin: nl turgor, No diaphoresis, No rash or lesions Lymph: nl lymph nodes Results Result Diagram: 04/23/1764704/23/1748 Medications Medications Current Medications Ondansetron HCl (Zofran Inj) 4 mg Q6H PRN IV NAUSEA AND/OR VOMITING; Start at 18:00 Acetaminophen (Tylenol Tab) 650 mg Q6H PRN PO PAIN LEVEL 1-3 OR FEVER Last administered on 04/23/17 23:01; Admin Dose 650 MG; Start 04/20/17 at 18:00 Acetaminophen/ Hydrocodone Bitart ([place] (5/325)) 1 tab Q6H PRN PO MODERATE PAIN LEVEL 4-6; Start 04/20/17 at 18:00 Docusate Sodium (Colace) 100 mg Q12H PRN PO CONSTIPATION Last administered on 04/22/17 17:07; Admin Dose 100 MG; Start 04/20/17 at 18:00 Zolpidem Tartrate (Ambien) 5 mg QHS PRN PO SLEEP; Start 04/20/17 at 18:00 Pantoprazole 40 mg 40 mg DAILY@06 PO Last administered on 04/26/17 06:10; Admin Dose 40 MG; Start 04/21/17 at 06:00 Ferric Sodium Gluconate Complex/ Sodium Chloride (Ferrlecit/NS) 110 ml @ 110 mls/hr Q24H IVPB Last administered on 04/26/17 15:28; Admin Dose 110 MLS/HR; Start 04/23/17 at 15:00; Stop 04/27/17 at 15:59 MICHELLE BOURNE MD Apr 27, 2017 01:05
[2017-04-27] MEDS: PANTOPRAZOLE (EC) 40 MG TAB PO SCH (06:27)
[2017-04-27] MEDS: SOD FERRIC GLUC COMPLX 125 MG in SOD CHLORIDE 0.9% 100 ML IVPB SCH (15:41)
--- NOTE | 2017-04-27 17:35 | CONS ---
Date/Time of Note Date/Time of Note DATE: 04/27/17 TIME: 17:33 Assessment/Plan Assessment/Plan Chief Complaint/Hosp Course Severe symptomatic microcytic anemia WITH COLON MASS TIBC is elevated suggesting iron deficiency CT abdomen and pelvis shows no significant findings endoscopy noted, SURG EVAL - P, PATH - P Status post 2 unit packed red blood cells iv iron Path C-Proximal ascending colon mass, biopsies: -- Invasive moderately well-differentiated adenocarcinoma. PLAN - SURGERY Chronic interstitial lung disease. Post hysterectomy. Problems: Consultation Date/Type/Reason Admit Date/Time Apr 20, 2017 at 12:35 Initial Consult Date 04/21/17 [facility] Referring Provider: CAMILO SLAUGHTER MD 24 HR Interval Summary Free Text/Dictation ALL NOTED D/W PT Exam/Review of Systems Vital Signs Vitals Vital Signs Date Time Temp Pulse Resp B/P Pulse Ox O2 Delivery O2 Flow Rate FiO2 04/27/17 15:45 98.1 65 19 155/57 95 04/25/17 19:51 Room Air Intake and Output 04/26/17 04/26/17 04/27/17 15:00 23:00 07:00 Intake Total 1200 ml 250 ml Balance 1200 ml 250 ml Exam Constitutional: alert, oriented, well developed Psych: nl mood/affect, no complaints Head: atraumatic, normocephalic Eyes: EOMI, PERRL, nl conjunctiva, nl lids, nl sclera ENMT: nl external ears & nose, nl lips & teeth, nl nasal mucosa & septum Neck: non-tender, supple Respiratory: clear to auscultation, normal air movement Cardiovascular: nl pulses, regular rate and rhythm Gastrointestinal: nl liver, spleen, non-tender, soft Musculoskeletal: nl extremities to inspection, nl gait and stance Extremities: normal pulses Neurological: RN SURGICAL II-XII intact, nl mental status, nl speech, nl strength Skin: nl turgor, No rash or lesions Lymph: nl lymph nodes Results Result Diagram: 04/27/17 0643 04/27/17 0643 Results 24 hrs Laboratory Tests Test 04/27/17 06:43 White Blood Count 8.2 Red Blood Count 4.39 Hemoglobin 9.7 L Hematocrit 33.8 L Mean Corpuscular Volume 77.0 L Mean Corpuscular Hemoglobin 22.1 L Mean Corpuscular Hemoglobin Concent 28.7 L Red Cell Distribution Width 24.0 H Platelet Count 576 H Mean Platelet Volume 8.9 Neutrophils % 78.7 H Lymphocytes % 14.8 L Monocytes % 5.9 Eosinophils % 0.0 Basophils % 0.2 Nucleated Red Blood Cells % 0.0 Neutrophils # 6.4 Lymphocytes # 1.2 Monocytes # 0.5 Eosinophils # 0.0 Basophils # 0.0 Nucleated Red Blood Cells # 0.0 Sodium Level 141 Potassium Level 4.2 Chloride Level 106 Carbon Dioxide Level 28 Anion Gap 11 Blood Urea Nitrogen 15 Creatinine 0.76 Glucose Level 121 Calcium Level 9.3 Total Bilirubin 0.2 Direct Bilirubin 0.00 Indirect Bilirubin 0.2 Aspartate Amino Transf (AST/SGOT) 17 Alanine Aminotransferase (ALT/SGPT) 18 Alkaline Phosphatase 86 Total Protein 7.0 Albumin 3.2 L Globulin 3.80 H Albumin/Globulin Ratio 0.84 Medications Medications Current Medications Ondansetron HCl (Zofran Inj) 4 mg Q6H PRN IV NAUSEA AND/OR VOMITING; Start at 18:00 Acetaminophen (Tylenol Tab) 650 mg Q6H PRN PO PAIN LEVEL 1-3 OR FEVER Last administered on 04/23/17 23:01; Admin Dose 650 MG; Start 04/20/17 at 18:00 Acetaminophen/ Hydrocodone Bitart ([place] (5/325)) 1 tab Q6H PRN PO MODERATE PAIN LEVEL 4-6; Start 04/20/17 at 18:00 Docusate Sodium (Colace) 100 mg Q12H PRN PO CONSTIPATION Last administered on 04/22/17 17:07; Admin Dose 100 MG; Start 04/20/17 at 18:00 Zolpidem Tartrate (Ambien) 5 mg QHS PRN PO SLEEP; Start 04/20/17 at 18:00 Pantoprazole (Protonix Tab) 40 mg DAILY@06 PO Last administered on 04/27/17 06:27; Admin Dose 40 MG; Start 04/21/17 at 06:00 BRANDY BONILLA MD Apr 27, 2017 17:35
[2017-04-28] MEDS ORDERED: hydrALAzine 20 MG INJ IV PRN
[2017-04-28] MEDS ORDERED: AMLODIPINE 5 MG TAB PO ONE
[2017-04-28 01:30] VITALS: BP 171/73; PULSE 50
[2017-04-28 02:18] VITALS: BP 127/60; PULSE 64
[2017-04-28 02:46] VITALS: BP 127/60; RESP 20
[2017-04-28] MEDS: PANTOPRAZOLE (EC) 40 MG TAB PO SCH (05:20)
[2017-04-28 08:00] VITALS: BP 167/72; RESP 20
[2017-04-28] MEDS: AMLODIPINE 5 MG TAB PO SCH (08:12)
--- NOTE | 2017-04-28 10:39 | CONS ---
Date/Time of Note Date/Time of Note DATE: 04/28/17 TIME: 10:37 Assessment/Plan Assessment/Plan Chief Complaint/Hosp Course Severe symptomatic microcytic anemia WITH COLON ADENOCARCINOMA TIBC is elevated suggesting iron deficiency CT abdomen and pelvis shows no significant findings endoscopy noted, SURG EVAL - P, PATH - P Status post 2 unit packed red blood cells iv iron Path C-Proximal ascending colon mass, biopsies: -- Invasive moderately well-differentiated adenocarcinoma. PLAN - SURGERY Chronic interstitial lung disease. Post hysterectomy. Problems: Consultation Date/Type/Reason Admit Date/Time Apr 20, 2017 at 12:35 Initial Consult Date 04/21/17 [facility] Referring Provider: CAMILO SLAUGHTER MD 24 HR Interval Summary Free Text/Dictation all noted surgery on the case d/w ss and rn Exam/Review of Systems Vital Signs Vitals Vital Signs Date Time Temp Pulse Resp B/P Pulse Ox O2 Delivery O2 Flow Rate FiO2 04/28/17 08:00 98.0 63 20 167/72 98 04/25/17 19:51 Room Air Intake and Output 04/27/17 04/27/17 04/28/17 15:00 23:00 07:00 Intake Total 510 ml 420 ml Balance 510 ml 420 ml Exam Constitutional: alert, oriented, well developed Psych: nl mood/affect, no complaints Head: atraumatic, normocephalic Eyes: EOMI, PERRL, nl conjunctiva, nl lids, nl sclera ENMT: nl external ears & nose, nl lips & teeth, nl nasal mucosa & septum Neck: non-tender, supple Respiratory: clear to auscultation, normal air movement Cardiovascular: nl pulses, regular rate and rhythm Gastrointestinal: nl liver, spleen, non-tender, soft Musculoskeletal: nl extremities to inspection, nl gait and stance Extremities: normal pulses Neurological: PEDIATRICIAN II-XII intact, nl mental status, nl speech, nl strength Skin: nl turgor, No rash or lesions Lymph: nl lymph nodes Results Result Diagram: 04/27/1764204/27/17642 Medications Medications Current Medications Ondansetron HCl (Zofran Inj) 4 mg Q6H PRN IV NAUSEA AND/OR VOMITING; Start at 18:00 Acetaminophen (Tylenol Tab) 650 mg Q6H PRN PO PAIN LEVEL 1-3 OR FEVER Last administered on 04/23/17 23:01; Admin Dose 650 MG; Start 04/20/17 at 18:00 Acetaminophen/ Hydrocodone Bitart ([place] (5/325)) 1 tab Q6H PRN PO MODERATE PAIN LEVEL 4-6; Start 04/20/17 at 18:00 Docusate Sodium (Colace) 100 mg Q12H PRN PO CONSTIPATION Last administered on 04/22/17 17:07; Admin Dose 100 MG; Start 04/20/17 at 18:00 Zolpidem Tartrate (Ambien) 5 mg QHS PRN PO SLEEP; Start 04/20/17 at 18:00 Pantoprazole (Protonix Tab) 40 mg DAILY@06 PO Last administered on 04/28/17 05 :20; Admin Dose 40 MG; Start 04/21/17 at 06:00 Amlodipine Besylate (Norvasc) 5 mg DAILY PO Last administered on 04/28/17 08: 12; Admin Dose 5 MG; Start 04/28/17 at 09:00 Hydralazine HCl (Apresoline) 10 mg Q6H PRN IV ELEVATED SYSTOLIC BP Last administered on 04/28/17 01:31; Admin Dose 10 MG; Start 04/28/17 at 00:00 BRANDY BONILLA MD Apr 28, 2017 10:39
--- NOTE | 2017-04-28 10:39 | CONS ---
Date/Time of Note Date/Time of Note DATE: 04/28/17 TIME: 10:37 Assessment/Plan Assessment/Plan Chief Complaint/Hosp Course Severe symptomatic microcytic anemia WITH COLON ADENOCARCINOMA TIBC is elevated suggesting iron deficiency CT abdomen and pelvis shows no significant findings endoscopy noted, SURG EVAL - P, PATH - P Status post 2 unit packed red blood cells iv iron Path C-Proximal ascending colon mass, biopsies: -- Invasive moderately well-differentiated adenocarcinoma. PLAN - SURGERY Chronic interstitial lung disease. Post hysterectomy. Problems: Consultation Date/Type/Reason Admit Date/Time Apr 20, 2017 at 12:35 Initial Consult Date 04/21/17 [facility] Referring Provider: CAMILO SLAUGHTER MD 24 HR Interval Summary Free Text/Dictation all noted surgery on the case d/w ss and rn Exam/Review of Systems Vital Signs Vitals Vital Signs Date Time Temp Pulse Resp B/P Pulse Ox O2 Delivery O2 Flow Rate FiO2 04/28/17 08:00 98.0 63 20 167/72 98 04/25/17 19:51 Room Air Intake and Output 04/27/17 04/27/17 04/28/17 15:00 23:00 07:00 Intake Total 510 ml 420 ml Balance 510 ml 420 ml Exam Constitutional: alert, oriented, well developed Psych: nl mood/affect, no complaints Head: atraumatic, normocephalic Eyes: EOMI, PERRL, nl conjunctiva, nl lids, nl sclera ENMT: nl external ears & nose, nl lips & teeth, nl nasal mucosa & septum Neck: non-tender, supple Respiratory: clear to auscultation, normal air movement Cardiovascular: nl pulses, regular rate and rhythm Gastrointestinal: nl liver, spleen, non-tender, soft Musculoskeletal: nl extremities to inspection, nl gait and stance Extremities: normal pulses Neurological: PRACTICAL NURSE II-XII intact, nl mental status, nl speech, nl strength Skin: nl turgor, No rash or lesions Lymph: nl lymph nodes Results Result Diagram: 04/27/1764204/27/17642 Medications Medications Current Medications Ondansetron HCl (Zofran Inj) 4 mg Q6H PRN IV NAUSEA AND/OR VOMITING; Start at 18:00 Acetaminophen (Tylenol Tab) 650 mg Q6H PRN PO PAIN LEVEL 1-3 OR FEVER Last administered on 04/23/17 23:01; Admin Dose 650 MG; Start 04/20/17 at 18:00 Acetaminophen/ Hydrocodone Bitart ([place] (5/325)) 1 tab Q6H PRN PO MODERATE PAIN LEVEL 4-6; Start 04/20/17 at 18:00 Docusate Sodium (Colace) 100 mg Q12H PRN PO CONSTIPATION Last administered on 04/22/17 17:07; Admin Dose 100 MG; Start 04/20/17 at 18:00 Zolpidem Tartrate (Ambien) 5 mg QHS PRN PO SLEEP; Start 04/20/17 at 18:00 Pantoprazole (Protonix Tab) 40 mg DAILY@06 PO Last administered on 04/28/17 05 :20; Admin Dose 40 MG; Start 04/21/17 at 06:00 Amlodipine Besylate (Norvasc) 5 mg DAILY PO Last administered on 04/28/17 08: 12; Admin Dose 5 MG; Start 04/28/17 at 09:00 Hydralazine HCl (Apresoline) 10 mg Q6H PRN IV ELEVATED SYSTOLIC BP Last administered on 04/28/17 01:31; Admin Dose 10 MG; Start 04/28/17 at 00:00 BRANDY BONILLA MD Apr 28, 2017 10:39
--- NOTE | 2017-04-28 10:39 | CONS ---
Date/Time of Note Date/Time of Note DATE: 04/28/17 TIME: 10:37 Assessment/Plan Assessment/Plan Chief Complaint/Hosp Course Severe symptomatic microcytic anemia WITH COLON ADENOCARCINOMA TIBC is elevated suggesting iron deficiency CT abdomen and pelvis shows no significant findings endoscopy noted, SURG EVAL - P, PATH - P Status post 2 unit packed red blood cells iv iron Path C-Proximal ascending colon mass, biopsies: -- Invasive moderately well-differentiated adenocarcinoma. PLAN - SURGERY Chronic interstitial lung disease. Post hysterectomy. Problems: Consultation Date/Type/Reason Admit Date/Time Apr 20, 2017 at 12:35 Initial Consult Date 04/21/17 Type of Consultation: [facility] Referring Provider: CAMILO SLAUGHTER MD 24 HR Interval Summary Free Text/Dictation all noted surgery on the case d/w ss and rn Exam/Review of Systems Vital Signs Vitals Vital Signs Date Time Temp Pulse Resp B/P Pulse Ox O2 Delivery O2 Flow Rate FiO2 04/28/17 08:00 98.0 63 20 167/72 98 04/25/17 19:51 Room Air Intake and Output 04/27/17 04/27/17 04/28/17 15:00 23:00 07:00 Intake Total 510 ml 420 ml Balance 510 ml 420 ml Exam Constitutional: alert, oriented, well developed Psych: nl mood/affect, no complaints Head: atraumatic, normocephalic Eyes: EOMI, PERRL, nl conjunctiva, nl lids, nl sclera ENMT: nl external ears & nose, nl lips & teeth, nl nasal mucosa & septum Neck: non-tender, supple Respiratory: clear to auscultation, normal air movement Cardiovascular: nl pulses, regular rate and rhythm Gastrointestinal: nl liver, spleen, non-tender, soft Musculoskeletal: nl extremities to inspection, nl gait and stance Extremities: normal pulses Neurological: FIVE ROLL REFINER BATCH MIXER II-XII intact, nl mental status, nl speech, nl strength Skin: nl turgor, No rash or lesions Lymph: nl lymph nodes Results Result Diagram: 04/27/1764204/27/17642 Medications Medications Current Medications Ondansetron HCl (Zofran Inj) 4 mg Q6H PRN IV NAUSEA AND/OR VOMITING; Start at 18:00 Acetaminophen (Tylenol Tab) 650 mg Q6H PRN PO PAIN LEVEL 1-3 OR FEVER Last administered on 04/23/17 23:01; Admin Dose 650 MG; Start 04/20/17 at 18:00 Acetaminophen/ Hydrocodone Bitart ([place] (5/325)) 1 tab Q6H PRN PO MODERATE PAIN LEVEL 4-6; Start 04/20/17 at 18:00 Docusate Sodium (Colace) 100 mg Q12H PRN PO CONSTIPATION Last administered on 04/22/17 17:07; Admin Dose 100 MG; Start 04/20/17 at 18:00 Zolpidem Tartrate (Ambien) 5 mg QHS PRN PO SLEEP; Start 04/20/17 at 18:00 Pantoprazole (Protonix Tab) 40 mg DAILY@06 PO Last administered on 04/28/17 05 :20; Admin Dose 40 MG; Start 04/21/17 at 06:00 Amlodipine Besylate (Norvasc) 5 mg DAILY PO Last administered on 04/28/17 08: 12; Admin Dose 5 MG; Start 04/28/17 at 09:00 Hydralazine HCl (Apresoline) 10 mg Q6H PRN IV ELEVATED SYSTOLIC BP Last administered on 04/28/17 01:31; Admin Dose 10 MG; Start 04/28/17 at 00:00 BRANDY BONILLA MD Apr 28, 2017 10:39
--- NOTE | 2017-04-28 12:40 | PN ---
Date/Time of Note Date/Time of Note DATE: 04/28/17 TIME: 12:34 Assessment/Plan Lines/Catheters IV Catheter Type (from [facility]): Saline Lock Aguilar in Place (from [facility]): No Assessment/Plan Chief Complaint/Hosp Course 1. Colon adenocarcinoma: CT: negative for metastatic disease however possible local lymphadenopathy; ONC rec's noted -Right colectomy when time available and after medical optimization-likely wednesday; r/b/a of procedure reviewed w patient and family they are electing to proceed with surgery 2. Gastritis -Diet and lifestyle optimization -Antacids 3. Esophagitis -Diet and lifestyle optimization -Antacids 4. Hemorrhoids -Dietary and lifestyle optimization 5. Slow GI bleed, multifactorial, secondary to above -Transfuse as needed -As above 6. Anemia secondary to above -As above 7. Recent syncope and weakness secondary to above -Medical and cardiac optimization -As above. Thank you. Patient seen and examined in collaboration with Dr. Jw Sheppard. Problems: Subjective 24 Hr Interval Summary Feels well. No c/o abdominal pain. +bowel function. No fevers, chills, sob, congested cough, cp, palpitations, soto, dizziness, n/v/d/dysuria. Exam/Review of Systems Vital Signs Vitals Vital Signs Date Time Temp Pulse Resp B/P Pulse Ox O2 Delivery O2 Flow Rate FiO2 04/28/17 08:00 98.0 63 20 167/72 98 04/25/17 19:51 Room Air Intake and Output 04/27/17 04/27/17 04/28/17 15:00 23:00 07:00 Intake Total 510 ml 420 ml Balance 510 ml 420 ml Exam Free Text/Dictation Constitutional: alert, oriented, No distress Psych: nl mood/affect Head: atraumatic, normocephalic Eyes: EOMI, PERRL, nl conjunctiva, No icteric ENMT: mucosa pink and moist, nl external ears & nose, nl lips & teeth Neck: non-tender, supple, No jvd Respiratory: normal air movement, No congested cough, No labored breathing Cardiovascular: regular rate and rhythm, No edema Gastrointestinal: non-tender, soft, No distended, No firm, No rebound or guarding Musculoskeletal: nl extremities to inspection, No joint tenderness, No range of motion Extremities: normal pulses, No calf tenderness, No cyanosis Neurological: nl mental status, nl speech, nl strength Skin: nl turgor, No diaphoresis, No rash or lesions Lymph: nonpalpable lymph nodes Results Result Diagram: 04/27/17 0643 04/27/17 0643 GERALDO SILVA NP Apr 28, 2017 12:40
[2017-04-28 14:00] VITALS: BP 132/64; RESP 18
--- NOTE | 2017-04-28 14:46 | PN ---
Date/Time of Note Date/Time of Note DATE: 04/27/17 TIME: 15:46 Assessment/Plan Lines/Catheters IV C[facility]ter Type (from [facility]): Saline Lock Aguilar in Place (from [facility]): No Assessment/Plan Chief Complaint/Hosp Course 1. Colon adenocarcinoma: CT: negative for metastatic disease however possible local lymphadenopathy; ONC rec's noted -Right colectomy when time available and after medical optimization-likely wednesday; r/b/a of procedure reviewed w patient and family they are electing to proceed with surgery 2. Gastritis -Diet and lifestyle optimization -Antacids 3. Esophagitis -Diet and lifestyle optimization -Antacids 4. Hemorrhoids -Dietary and lifestyle optimization 5. Slow GI bleed, multifactorial, secondary to above -Transfuse as needed -As above 6. Anemia secondary to above -As above 7. Recent syncope and weakness secondary to above -Medical and cardiac optimization -As above. Thank you. Patient seen and examined in collaboration with Dr. Jw Sheppard. Problems: Exam/Review of Systems Vital Signs Vitals Vital Signs Date Time Temp Pulse Resp B/P Pulse Ox O2 Delivery O2 Flow Rate FiO2 04/28/17 08:00 98.0 63 20 167/72 98 04/25/17 19:51 Room Air Intake and Output 04/27/17 04/27/17 04/28/17 15:00 23:00 07:00 Intake Total 510 ml 420 ml Balance 510 ml 420 ml Results Result Diagram: 04/27/17 0643 04/27/17 0643 GERALDO SILVA NP Apr 28, 2017 14:46
--- NOTE | 2017-04-28 16:01 | PN ---
Date/Time of Note Date/Time of Note DATE: 04/28/17 TIME: 15:59 Assessment/Plan VTE Prophylaxis VTE Prophylaxis Intervention: LMWH Lines/Catheters IV Catheter Type (from Nrsg): Saline Lock Urinary Cath still in place: No Assessment/Plan Chief Complaint/Hosp Course 81 yo female presenting wtih subacute CALDERON found to have iron deficiency anemia and subsequently diagnosed with localized colon cancer Colon cancer: - Surgery planned for Wednesday per Dr Sheppard Iron deficiency anemia: - Iron supplementation Hypertension: - Continue amlodipine DIspo following surgery Problems: Subjective 24 Hr Interval Summary Free Text/Dictation No change to clinical status Awaiting surgery Wednesday Exam/Review of Systems Vital Signs Vitals Vital Signs Date Time Temp Pulse Resp B/P Pulse Ox O2 Delivery O2 Flow Rate FiO2 04/28/17 14:00 98.8 76 18 132/64 96 04/25/17 19:51 Room Air Intake and Output 04/27/17 04/27/17 04/28/17 15:00 23:00 07:00 Intake Total 510 ml 420 ml Balance 510 ml 420 ml Exam Constitutional: alert, oriented, well developed Psych: nl mood/affect, no complaints Head: atraumatic, normocephalic Eyes: EOMI, PERRL, nl conjunctiva, nl lids, nl sclera ENMT: nl external ears & nose, nl lips & teeth, nl nasal mucosa & septum Neck: non-tender, supple Respiratory: clear to auscultation, normal air movement Cardiovascular: nl pulses, regular rate and rhythm Gastrointestinal: nl liver, spleen, non-tender, soft Musculoskeletal: nl extremities to inspection, nl gait and stance Extremities: normal pulses Neurological: SOFTWARE DEVELOPMENT COORDINATOR II-XII intact, nl mental status, nl speech, nl strength Skin: nl turgor, No rash or lesions Lymph: nl lymph nodes Results Result Diagram: 04/27/1764204/27/17642 Medications Medications Current Medications Ondansetron HCl (Zofran Inj) 4 mg Q6H PRN IV NAUSEA AND/OR VOMITING; Start at 18:00 Acetaminophen (Tylenol Tab) 650 mg Q6H PRN PO PAIN LEVEL 1-3 OR FEVER Last administered on 04/23/17t 23:01; Admin Dose 650 MG; Start 04/20/17 at 18:00 Acetaminophen/ Hydrocodone Bitart ([place] (5/325)) 1 tab Q6H PRN PO MODERATE PAIN LEVEL 4-6; Start 04/20/17 at 18:00 Docusate Sodium (Colace) 100 mg Q12H PRN PO CONSTIPATION Last administered on 04/22/17 17:07; Admin Dose 100 MG; Start 04/20/17 at 18:00 Zolpidem Tartrate (Ambien) 5 mg QHS PRN PO SLEEP; Start 04/20/17 at 18:00 Pantoprazole (Protonix Tab) 40 mg DAILY@06 PO Last administered on 04/28/17 05 :20; Admin Dose 40 MG; Start 04/21/17 at 06:00 Amlodipine Besylate (Norvasc) 5 mg DAILY PO Last administered on 04/28/17 08: 12; Admin Dose 5 MG; Start 04/28/17 at 09:00 Hydralazine HCl (Apresoline) 10 mg Q6H PRN IV ELEVATED SYSTOLIC BP Last administered on 04/28/17 01:31; Admin Dose 10 MG; Start 04/28/17 at 00:00 CAMILO SLAUGHTER MD Apr 28, 2017 16:01
[2017-04-28 19:48] VITALS: BP 125/60; RESP 20
[2017-04-29 02:10] VITALS: BP 108/53; RESP 18
[2017-04-29] MEDS: PANTOPRAZOLE (EC) 40 MG TAB PO SCH (05:12)
[2017-04-29 08:00] VITALS: BP 155/68; RESP 18
[2017-04-29] MEDS: AMLODIPINE 5 MG TAB PO SCH (08:23)
--- NOTE | 2017-04-29 11:45 | PN ---
Date/Time of Note Date/Time of Note DATE: 04/29/17 TIME: 11:38 Assessment/Plan Lines/Catheters IV Catheter Type (from [facility]): Saline Lock Aguilar in Place (from [facility]): No Assessment/Plan Chief Complaint/Hosp Course 1. Colon adenocarcinoma: CT: negative for metastatic disease however possible local lymphadenopathy; ONC rec's noted -Right colectomy when time available and after medical optimization: tomorrow; r /b/a of procedure reviewed w patient and family they are electing to proceed with surgery 2. Gastritis -Diet and lifestyle optimization -Antacids 3. Esophagitis -Diet and lifestyle optimization -Antacids 4. Hemorrhoids -Dietary and lifestyle optimization 5. Slow GI bleed, multifactorial, secondary to above -Transfuse as needed -As above 6. Anemia secondary to above -As above 7. Recent syncope and weakness secondary to above -Medical and cardiac optimization -As above. Thank you. Patient seen and examined in collaboration with Dr. Jw Sheppard. Problems: Subjective 24 Hr Interval Summary Feels well. No abdominal pain or discomfort. +bowel function. Pending surgery tomorrow. No fevers, chills, sob, congested cough, cp, palpitations, soto, dizziness, n/v/d/dysuria. Exam/Review of Systems Vital Signs Vitals Vital Signs Date Time Temp Pulse Resp B/P Pulse Ox O2 Delivery O2 Flow Rate FiO2 04/29/17 08:00 98.6 68 18 155/68 96 04/25/17 19:51 Room Air Intake and Output 04/28/17 04/28/17 04/29/17 15:00 23:00 07:00 Intake Total 1000 ml 240 ml Balance 1000 ml 240 ml Exam Free Text/Dictation Constitutional: alert, oriented, No distress Psych: nl mood/affect, pleasant Head: atraumatic, normocephalic Eyes: EOMI, PERRL, nl conjunctiva, No icteric ENMT: mucosa pink and moist, nl external ears & nose, nl lips & teeth Neck: non-tender, supple, No jvd Respiratory: normal air movement, No congested cough, No labored breathing Cardiovascular: regular rate and rhythm, No edema Gastrointestinal: non-tender, soft, No distended, No firm, No rebound or guarding Musculoskeletal: nl extremities to inspection, No joint tenderness, No range of motion Extremities: normal pulses, No calf tenderness, No cyanosis Neurological: nl mental status, nl speech, nl strength Skin: nl turgor, No diaphoresis, No rash or lesions Lymph: nonpalpable lymph nodes Results Result Diagram: 04/27/17 0643 04/27/17 0643 GERALDO SILVA NP Apr 29, 2017 11:45
--- NOTE | 2017-04-29 13:37 | PN ---
Date/Time of Note Date/Time of Note DATE: 04/29/17 TIME: 13:37 Assessment/Plan VTE Prophylaxis VTE Prophylaxis Intervention: LMWH Lines/Catheters IV Catheter Type (from Nrs): Saline Lock Urinary Cath still in place: No Assessment/Plan Chief Complaint/Hosp Course 81 yo female presenting wtih subacute CALDERON found to have iron deficiency anemia and subsequently diagnosed with localized colon cancer Colon cancer: - Surgery planned for tomorrow per Dr Sheppard Iron deficiency anemia: - Iron supplementation Hypertension: - Continue amlodipine DIspo following surgery Problems: Subjective 24 Hr Interval Summary Free Text/Dictation No change to clinical status Awaiting surgery tomorrow Exam/Review of Systems Vital Signs Vitals Vital Signs Date Time Temp Pulse Resp B/P Pulse Ox O2 Delivery O2 Flow Rate FiO2 04/29/17 08:00 98.6 68 18 155/68 96 04/25/17 19:51 Room Air Intake and Output 04/28/17 04/28/17 04/29/17 15:00 23:00 07:00 Intake Total 1000 ml 240 ml Balance 1000 ml 240 ml Exam Constitutional: alert, oriented, well developed Psych: nl mood/affect, no complaints Head: atraumatic, normocephalic Eyes: EOMI, PERRL, nl conjunctiva, nl lids, nl sclera ENMT: nl external ears & nose, nl lips & teeth, nl nasal mucosa & septum Neck: non-tender, supple Respiratory: clear to auscultation, normal air movement Cardiovascular: nl pulses, regular rate and rhythm Gastrointestinal: nl liver, spleen, non-tender, soft Musculoskeletal: nl extremities to inspection, nl gait and stance Extremities: normal pulses Neurological: DISTRIBUTOR OF DIRECTORIES II-XII intact, nl mental status, nl speech, nl strength Skin: nl turgor, No rash or lesions Lymph: nl lymph nodes Results Result Diagram: 04/27/17 0643 04/27/17 0643 Results 24 hrs Laboratory Tests Test 04/29/17 11:54 Prothrombin Time 13.5 Prothrombin Time Ratio 1.1 INR International Normalized Ratio 1.03 Medications Medications Current Medications Ondansetron HCl (Zofran Inj) 4 mg Q6H PRN IV NAUSEA AND/OR VOMITING; Start at 18:00 Acetaminophen (Tylenol Tab) 650 mg Q6H PRN PO PAIN LEVEL 1-3 OR FEVER Last administered on 04/23/17 23:01; Admin Dose 650 MG; Start 04/20/17 at 18:00 Acetaminophen/ Hydrocodone Bitart ([place] (5/325)) 1 tab Q6H PRN PO MODERATE PAIN LEVEL 4-6; Start 04/20/17 at 18:00 Docusate Sodium (Colace) 100 mg Q12H PRN PO CONSTIPATION Last administered on 04/22/17 17:07; Admin Dose 100 MG; Start 04/20/17 at 18:00 Zolpidem Tartrate (Ambien) 5 mg QHS PRN PO SLEEP Last administered on 21:04; Admin Dose 5 MG; Start 04/20/17 at 18:00 Pantoprazole (Protonix Tab) 40 mg DAILY@06 PO Last administered on 04/29/17 05 :12; Admin Dose 40 MG; Start 04/21/17 at 06:00 Amlodipine Besylate (Norvasc) 5 mg DAILY PO Last administered on 04/29/17 08: 23; Admin Dose 5 MG; Start 04/28/17 at 09:00 Hydralazine HCl (Apresoline) 10 mg Q6H PRN IV ELEVATED SYSTOLIC BP Last administered on 04/28/17 01:31; Admin Dose 10 MG; Start 04/28/17 at 00:00 CAMILO SLAUGHTER MD Apr 29, 2017 13:37
[2017-04-29 16:00] VITALS: BP 138/61; RESP 18
--- NOTE | 2017-04-29 19:05 | CONS ---
Date/Time of Note Date/Time of Note DATE: 04/29/17 TIME: 19:05 Assessment/Plan Assessment/Plan Chief Complaint/Hosp Course Severe symptomatic microcytic anemia WITH COLON ADENOCARCINOMA TIBC is elevated suggesting iron deficiency CT abdomen and pelvis shows no significant findings endoscopy noted, SURG EVAL - P, PATH - P Status post 2 unit packed red blood cells iv iron Path C-Proximal ascending colon mass, biopsies: -- Invasive moderately well-differentiated adenocarcinoma. PLAN - SURGERY Chronic interstitial lung disease. Post hysterectomy. Problems: Consultation Date/Type/Reason Admit Date/Time Apr 20, 2017 at 12:35 Initial Consult Date 04/21/17 Type of Consultation: HEMEON Referring Provider: CAMILO SLAUGHTER MD 24 HR Interval Summary Free Text/Dictation no new events awaiting surgery Exam/Review of Systems Vital Signs Vitals Vital Signs Date Time Temp Pulse Resp B/P Pulse Ox O2 Delivery O2 Flow Rate FiO2 04/29/17 16:00 98.8 71 18 138/61 96 04/25/17 19:51 Room Air Intake and Output 04/28/17 04/28/17 04/29/17 15:00 23:00 07:00 Intake Total 1000 ml 240 ml Balance 1000 ml 240 ml Exam Constitutional: alert, oriented, well developed Psych: nl mood/affect, no complaints Head: atraumatic, normocephalic Eyes: EOMI, PERRL, nl conjunctiva, nl lids, nl sclera ENMT: nl external ears & nose, nl lips & teeth, nl nasal mucosa & septum Neck: non-tender, supple Respiratory: clear to auscultation, normal air movement Cardiovascular: nl pulses, regular rate and rhythm Gastrointestinal: nl liver, spleen, non-tender, soft Musculoskeletal: nl extremities to inspection, nl gait and stance Extremities: normal pulses Neurological: PUBLIC HEALTH CLINICAL NURSE SPECIALIST II-XII intact, nl mental status, nl speech, nl strength Skin: nl turgor, No rash or lesions Lymph: nl lymph nodes Results Result Diagram: 04/27/1764204/27/17642 Results 24 hrs Laboratory Tests Test 04/29/17 11:54 Prothrombin Time 13.5 Prothrombin Time Ratio 1.1 INR International Normalized Ratio 1.03 Medications Medications Current Medications Ondansetron HCl (Zofran Inj) 4 mg Q6H PRN IV NAUSEA AND/OR VOMITING; Start at 18:00 Acetaminophen (Tylenol Tab) 650 mg Q6H PRN PO PAIN LEVEL 1-3 OR FEVER Last administered on 04/23/17 23:01; Admin Dose 650 MG; Start 04/20/17 at 18:00 Acetaminophen/ Hydrocodone Bitart ([place] (5/325)) 1 tab Q6H PRN PO MODERATE PAIN LEVEL 4-6; Start 04/20/17 at 18:00 Docusate Sodium (Colace) 100 mg Q12H PRN PO CONSTIPATION Last administered on 04/22/17 17:07; Admin Dose 100 MG; Start 04/20/17 at 18:00 Zolpidem Tartrate (Ambien) 5 mg QHS PRN PO SLEEP Last administered on 21:04; Admin Dose 5 MG; Start 04/20/17 at 18:00 Pantoprazole (Protonix Tab) 40 mg DAILY@06 PO Last administered on 04/29/17 05 :12; Admin Dose 40 MG; Start 04/21/17 at 06:00 Amlodipine Besylate (Norvasc) 5 mg DAILY PO Last administered on 04/29/17 08: 23; Admin Dose 5 MG; Start 04/28/17 at 09:00 Hydralazine HCl (Apresoline) 10 mg Q6H PRN IV ELEVATED SYSTOLIC BP Last administered on 04/28/17 01:31; Admin Dose 10 MG; Start 04/28/17 at 00:00 BRANDY BONILLA MD Apr 29, 2017 19:05
[2017-04-29 21:09] VITALS: BP 141/63; RESP 18
[2017-04-30] VITALS (19 sets, daily range): BP systolic 108–201; BP diastolic 51–96; PULSE 58–76; RESP 18–25
[2017-04-30] MEDS: PANTOPRAZOLE (EC) 40 MG TAB PO SCH (05:11)
[2017-04-30] MEDS ORDERED: KETOROLAC 30 MG INJ IV ONE (06:49)
[2017-04-30] MEDS: AMLODIPINE 5 MG TAB PO SCH (08:17)
[2017-04-30] MEDS ORDERED: LIDOCAINE 1% (MPF) 30 ML INJ ONE (09:47)
[2017-04-30] MEDS ORDERED: FENTAnyl 50 MCG/ML VIAL ONE (11:00)
--- NOTE | 2017-04-30 11:04 | PN ---
Date/Time of Note Date/Time of Note DATE: 04/30/17 TIME: 11:01 Assessment/Plan Lines/Catheters IV Catheter Type (from [facility]): Saline Lock Aguilar in Place (from [facility]): No Assessment/Plan Chief Complaint/Hosp Course 1. Colon adenocarcinoma: CT: negative for metastatic disease however possible local lymphadenopathy; Oncology input noted -Lap right colectomy 2. Gastritis -Diet and lifestyle optimization -Antacids 3. Esophagitis -Diet and lifestyle optimization -Antacids 4. Hemorrhoids -Dietary and lifestyle optimization 5. Slow GI bleed, multifactorial, secondary to above -Transfuse as needed -As above 6. Anemia secondary to above -As above 7. Recent syncope and weakness secondary to above -Medical and cardiac optimization -As above. 8. Right A/C fossa thrombophlebitis -abx -warm compress -elevate Thank you, Problems: Subjective 24 Hr Interval Summary Feels well. No abdominal pain or discomfort. Bowel function. No fevers, chills, sob, congested cough, cp, palpitations, soto, dizziness, n/v/d/dysuria. Agrees to proceed with surgery. Exam/Review of Systems Vital Signs Vitals Vital Signs Date Time Temp Pulse Resp B/P Pulse Ox O2 Delivery O2 Flow Rate FiO2 04/30/17 08:52 98.0 04/30/17 08:01 62 18 140/65 98 Intake and Output 04/29/17 04/29/17 04/30/17 15:00 23:00 07:00 Intake Total 600 ml 850 ml Balance 600 ml 850 ml Exam Free Text/Dictation Constitutional: alert, oriented, No distress Psych: nl mood/affect, pleasant Head: atraumatic, normocephalic Eyes: EOMI, PERRL, nl conjunctiva, No icteric ENMT: mucosa pink and moist, nl external ears & nose, nl lips & teeth Neck: non-tender, supple, No jvd Respiratory: normal air movement, No congested cough, No labored breathing Cardiovascular: regular rate and rhythm, No edema Gastrointestinal: non-tender, soft, No distended, No firm, No rebound or guarding Musculoskeletal: nl extremities to inspection, No joint tenderness, No range of motion restrictions. Right a/c fossa erythema, cord, tenderness. Extremities: normal pulses, No calf tenderness, No cyanosis Neurological: nl mental status, nl speech, nl strength Skin: nl turgor, No diaphoresis, No rash or lesions Lymph: nonpalpable lymph nodes Results Result Diagram: 04/30/17 0550 04/30/17 0550 MICHELLE BOURNE MD Apr 30, 2017 11:04
[2017-04-30] MEDS ORDERED: SUGAMMADEX SODIUM 200 MG/2 ML VIAL IV ONE (11:38)
[2017-04-30] MEDS ORDERED: LIDOCAINE 2% (SDV) 5 ML INJ ONE (11:38)
[2017-04-30] MEDS ORDERED: metroNIDAZOLE 500 MG/NS (PMX) 100 ML IVPB ONE (11:38)
[2017-04-30] MEDS ORDERED: CEFAZOLIN 1 GM INJ ONE (11:38)
[2017-04-30] MEDS ORDERED: SUCCINYLCHOLINE CHLORIDE 100 MG/5 ML SYG IV ONE (11:38)
[2017-04-30] MEDS ORDERED: ROCURONIUM 50 MG INJ ONE (11:38)
[2017-04-30] MEDS ORDERED: PROPOFOL 20 ML ONE (11:38)
[2017-04-30] MEDS ORDERED: BUPIVACAINE 0.5%/EPI (SDV) 30 ML INJ INJ ONE (12:36)
--- NOTE | 2017-04-30 12:36 | CONS ---
Date/Time of Note Date/Time of Note DATE: 04/30/17 TIME: 07:35 vk le Assessment/Plan Assessment/Plan Chief Complaint/Hosp Course Severe symptomatic microcytic anemia WITH COLON ADENOCARCINOMA TIBC is elevated suggesting iron deficiency CT abdomen and pelvis shows no significant findings endoscopy noted, SURG EVAL - P, PATH - P Status post 2 unit packed red blood cells iv iron Path C-Proximal ascending colon mass, biopsies: -- Invasive moderately well-differentiated adenocarcinoma. PLAN - SURGERY Chronic interstitial lung disease. Post hysterectomy. Problems: Consultation Date/Type/Reason Admit Date/Time Apr 20, 2017 at 12:35 Initial Consult Date 04/21/17 [facility] Referring Provider: CAMILO SLAUGHTER MD 24 HR Interval Summary Free Text/Dictation all noted for surgery today Exam/Review of Systems Vital Signs Vitals Vital Signs Date Time Temp Pulse Resp B/P Pulse Ox O2 Delivery O2 Flow Rate FiO2 04/30/17 08:52 98.0 04/30/17 08:01 62 18 140/65 98 Intake and Output 04/29/17 04/29/17 04/30/17 15:00 23:00 07:00 Intake Total 600 ml 850 ml Balance 600 ml 850 ml Exam Constitutional: alert, oriented, well developed Psych: nl mood/affect, no complaints Head: atraumatic, normocephalic Eyes: EOMI, PERRL, nl conjunctiva, nl lids, nl sclera ENMT: nl external ears & nose, nl lips & teeth, nl nasal mucosa & septum Neck: non-tender, supple Respiratory: clear to auscultation, normal air movement Cardiovascular: nl pulses, regular rate and rhythm Gastrointestinal: nl liver, spleen, non-tender, soft Musculoskeletal: nl extremities to inspection, nl gait and stance Extremities: normal pulses Neurological: RUSSET REPAIRER II-XII intact, nl mental status, nl speech, nl strength Skin: nl turgor, No rash or lesions Lymph: nl lymph nodes Results Result Diagram: 04/30/17 0550 04/30/17 0550 Results 24 hrs Laboratory Tests Test 04/30/17 05:50 White Blood Count 7.5 Red Blood Count 4.51 Hemoglobin 10.2 L Hematocrit 34.6 L Mean Corpuscular Volume 76.7 L Mean Corpuscular Hemoglobin 22.6 L Mean Corpuscular Hemoglobin Concent 29.5 L Red Cell Distribution Width 25.6 H Platelet Count 584 H Mean Platelet Volume 8.6 Neutrophils % 64.3 Lymphocytes % 20.5 Monocytes % 10.1 Eosinophils % 3.3 Basophils % 1.3 Nucleated Red Blood Cells % 0.0 Neutrophils # 4.8 Lymphocytes # 1.5 Monocytes # 0.8 Eosinophils # 0.3 Basophils # 0.1 Nucleated Red Blood Cells # 0.0 Sodium Level 142 Potassium Level 3.9 Chloride Level 109 Carbon Dioxide Level 26 Anion Gap 11 Blood Urea Nitrogen 13 Creatinine 0.68 Glucose Level 94 Calcium Level 9.0 Iron Level 54 Total Iron Binding Capacity 303 Percent Iron Saturation 18 L Ferritin 536.0 H Total Bilirubin 0.2 Direct Bilirubin 0.00 Indirect Bilirubin 0.2 Aspartate Amino Transf (AST/SGOT) 17 Alanine Aminotransferase (ALT/SGPT) 22 Alkaline Phosphatase 78 Total Protein 6.7 Albumin 3.2 L Globulin 3.50 H Albumin/Globulin Ratio 0.91 Medications Medications Current Medications Ondansetron HCl (Zofran Inj) 4 mg Q6H PRN IV NAUSEA AND/OR VOMITING; Start at 18:00 Acetaminophen (Tylenol Tab) 650 mg Q6H PRN PO PAIN LEVEL 1-3 OR FEVER Last administered on 04/23/17 23:01; Admin Dose 650 MG; Start 04/20/17 at 18:00 Acetaminophen/ Hydrocodone Bitart ([place] (5/325)) 1 tab Q6H PRN PO MODERATE PAIN LEVEL 4-6; Start 04/20/17 at 18:00 Docusate Sodium (Colace) 100 mg Q12H PRN PO CONSTIPATION Last administered on 04/22/17 17:07; Admin Dose 100 MG; Start 04/20/17 at 18:00 Zolpidem Tartrate (Ambien) 5 mg QHS PRN PO SLEEP Last administered on 21:04; Admin Dose 5 MG; Start 04/20/17 at 18:00 Pantoprazole (Protonix Tab) 40 mg DAILY@06 PO Last administered on 04/29/17 05 :12; Admin Dose 40 MG; Start 04/21/17 at 06:00 Amlodipine Besylate (Norvasc) 5 mg DAILY PO Last administered on 04/29/17 08: 23; Admin Dose 5 MG; Start 04/28/17 at 09:00 Hydralazine HCl (Apresoline) 10 mg Q6H PRN IV ELEVATED SYSTOLIC BP Last administered on 04/28/17t 01:31; Admin Dose 10 MG; Start 04/28/17 at 00:00 BRANDY BONILLA MD Apr 30, 2017 12:36
[2017-04-30] MEDS ORDERED: ROPIVACAINE 0.2% 20 ML VIAL ONE (13:55)
[2017-04-30] MEDS ORDERED: DIPHENHYDRAMINE 50 MG INJ IV PRN (14:00)
[2017-04-30] MEDS ORDERED: HYDROmorphONE (0.2 MG/ML) 10ML SYG IV PRN ×2 (14:00)
[2017-04-30] MEDS ORDERED: FENTAnyl 50 MCG/ML VIAL IV PRN ×2 (14:00)
[2017-04-30] MEDS ORDERED: METOCLOPRAMIDE 10 MG INJ IV PRN (14:00)
[2017-04-30] MEDS ORDERED: ONDANSETRON 4 MG INJ IV PRN (14:00)
[2017-04-30] MEDS ORDERED: MEPERIDINE 25 MG INJ IV PRN (14:00)
--- NOTE | 2017-04-30 14:27 | OPR ---
Date/Time of Note Date/Time of Note DATE: 04/30/17 TIME: 14:15 Operative Report Free Text/Dictation Preoperative Diagnosis: Ascending colon adenocarcinoma Postoperative Diagnosis: Ascending colon adenocarcinoma Operation(s) Performed: 1. Laparoscopic right colectomy 2. Laparoscopic mobilization of the hepatic flexure 3. Laparoscopic implantation of xenograft biologic over the anastomosis for improved healing 4. Local anesthetic injection, [id number] Surgeon: MICHELLE BOURNE MD Medical Donation Professional: Nehal Carmona NP Anesthesia: General, local, & regional Anesthesiologist: Elia Hatfield MD Estimated Blood Loss: 50 ml's Specimens: Right colon Tubes/Drains: None Grafts: ACell, 7 x 10 cm, 2 layer Complications: None Pt Condition Post Procedure: stable Disposition: PACU Indications: Per notes. 81-year-old female with right colon cancer on CT and colonoscopy. No other lesions identified. Risks include but are not limited to bleeding, infection, abscess, seroma, leak , damage to intestines or any intra-abdominal/intrapelvic structures, hernia formation, chronic pain, need for re-operations or further surgeries, VT, stroke , PE, DVT, pneumonia, organ failures, or even . Procedure Description: Patient was brought in, placed supine on the operating table, SCDs were placed, and preoperative antibiotics administered. After induction of anesthesia, all pressure points were well-padded and timeout was performed. Local anesthetic was injected at all surgical sites. Incision was made in the left upper quadrant and using an Optiview 5 mm port and the 5 mm 0 scope abdomen was entered and insufflated to 15 mmHg with CO2. Laparoscopy with a 5 mm 30 scope did not identify any injuries. The malignant right colon lesion was identified. There was attachments of omentum to the pelvis. Under direct visualization 5 mm ports were placed in left lower quadrant and lower mid abdomen through her previous incision. Attachments of omentum were taken down from the pelvic wall with LigaSure. Patient was placed in Trendelenburg and right side up. The right colon was mobilized off of the abdominal wall using scissors with complete hemostasis. Then the peritoneum on the medial aspect of the proximal colon and transverse colon was mobilized as well using electrocautery. The iliocolic vascular bundle was identified and transected with LigaSure with complete hemostasis. The right branch of middle colic was identified and that was taken with the LigaSure. The omentum was taken off of the transverse colon, and the transverse colon was mobilized off of the stomach and duodenum by opening the gastro-colic ligament. The hepatic flexure was taken down using LigaSure as well fully mobilizing the right and transverse colon with care taken to fully identified the duodenum and protected. At this point the mesentery was sequentially taken with LigaSure. Lower midline incision was made through her previous incision. Abdomen was entered and Raúl retractor was applied. The specimen was exteriorized. Terminal ileum was transected with echelon 60 blue load stapler. The transverse colon and mid to distal segment was transected with the same stapler. The specimen was fully mobilized. The terminal ileum was placed [id number] along the distal transverse colon and stay sutures were placed using 2-0 silk sutures. Enterotomies were created in both structures and 2 firings of echelon 60 blue loads were used to create the anastomosis. Crotch stitch was placed 2 using same silk suture. The open end of the anastomosis was stapled using the same echelon stapler. The staple line was reinforced with the 2-0 silk Lembert suture in a running fashion. To allow improved healing of the anastomosis, 7 x 10 cm 2 layer ACell, xenograft biologic sheet was placed over the anastomosis. Omentum was pulled over the anastomosis. There was complete hemostasis. Peritoneum was closed with 3-0 Vicryl suture in a running fashion. The fascia was approximated using #1 looped PDS suture in a running fashion. Subcutaneous tissue was closed in a running fashion with 2-0 Vicryl followed by 4-0 Monocryl subcuticular closure of the skin. Between each layer the wound was fully irrigated and completely hemostatic. Abdomen was re-insufflated was no bleeding and the anastomosis was laying comfortably. The 12 m port site was closed with Endo Close and 0 Vicryl in a [id number] manner. Ports and CO2 were removed under direct visualization. Wounds were thoroughly irrigated and skin was closed with 4-0 Monocryl in subcuticular fashion. Dermabond was applied. Patient was extubated and transferred to recovery room in stable condition. All counts were correct and the end of the operation 2. Bilateral transversus abdominis plane block was performed by anesthesiologist prior to extubating patient. Copies To: CC: CAMILO SLAUGHTER MD; FIDEL AG MD, SAMUEL MD Apr 30, 2017 14:25
[2017-04-30] MEDS ORDERED: HYDROmorphONE 0.5 MG/0.5 ML SYG IV PRN (14:30)
[2017-04-30] MEDS ORDERED: HYDROCODONE/APAP (5/325) TAB PO PRN (14:30)
[2017-04-30] MEDS: metroNIDAZOLE 500 MG/NS (PMX) 100 ML IVPB SCH ×2 (15:25→22:19)
[2017-04-30] MEDS ORDERED: hydrALAzine 20 MG INJ IV PRN (15:30)
--- NOTE | 2017-04-30 15:44 | PN ---
Date/Time of Note Date/Time of Note DATE: 04/30/17 TIME: 15:43 Assessment/Plan VTE Prophylaxis VTE Prophylaxis Intervention: LMWH Lines/Catheters IV [facility] Peripheral IV Urinary Cath still in place: No Assessment/Plan Chief Complaint/Hosp Course 81 yo female presenting wtih subacute CALDERON found to have iron deficiency anemia and subsequently diagnosed with localized colon cancer Colon cancer: - Surgery today per Dr Sheppard - Post op management per surgery Iron deficiency anemia: - Iron supplementation Hypertension: - Continue amlodipine DIspo in coming days: PT/OT eval Problems: Subjective 24 Hr Interval Summary Free Text/Dictation To OR for hemicolectomy today, patient not seen on unit Exam/Review of Systems Vital Signs Vitals Vital Signs Date Time Temp Pulse Resp B/P Pulse Ox O2 Delivery O2 Flow Rate FiO2 04/30/17 15:13 66 22 151/68 99 Room Air 04/30/17 14:25 96.5 Intake and Output 04/29/17 04/29/17 04/30/17 15:00 23:00 07:00 Intake Total 600 ml 850 ml Balance 600 ml 850 ml Results Result Diagram: 04/30/17 0550 04/30/17 0550 Results 24 hrs Laboratory Tests Test 04/30/17 05:50 White Blood Count 7.5 Red Blood Count 4.51 Hemoglobin 10.2 L Hematocrit 34.6 L Mean Corpuscular Volume 76.7 L Mean Corpuscular Hemoglobin 22.6 L Mean Corpuscular Hemoglobin Concent 29.5 L Red Cell Distribution Width 25.6 H Platelet Count 584 H Mean Platelet Volume 8.6 Neutrophils % 64.3 Lymphocytes % 20.5 Monocytes % 10.1 Eosinophils % 3.3 Basophils % 1.3 Nucleated Red Blood Cells % 0.0 Neutrophils # 4.8 Lymphocytes # 1.5 Monocytes # 0.8 Eosinophils # 0.3 Basophils # 0.1 Nucleated Red Blood Cells # 0.0 Sodium Level 142 Potassium Level 3.9 Chloride Level 109 Carbon Dioxide Level 26 Anion Gap 11 Blood Urea Nitrogen 13 Creatinine 0.68 Glucose Level 94 Calcium Level 9.0 Iron Level 54 Total Iron Binding Capacity 303 Percent Iron Saturation 18 L Ferritin 536.0 H Total Bilirubin 0.2 Direct Bilirubin 0.00 Indirect Bilirubin 0.2 Aspartate Amino Transf (AST/SGOT) 17 Alanine Aminotransferase (ALT/SGPT) 22 Alkaline Phosphatase 78 Total Protein 6.7 Albumin 3.2 L Globulin 3.50 H Albumin/Globulin Ratio 0.91 Medications Medications Current Medications Ondansetron HCl (Zofran Inj) 4 mg Q6H PRN IV NAUSEA AND/OR VOMITING; Start at 18:00 Acetaminophen (Tylenol Tab) 650 mg Q6H PRN PO PAIN LEVEL 1-3 OR FEVER Last administered on 04/23/17 23:01; Admin Dose 650 MG; Start 04/20/17 at 18:00 Acetaminophen/ Hydrocodone Bitart ([place] (5/325)) 1 tab Q6H PRN PO MODERATE PAIN LEVEL 4-6; Start 04/20/17 at 18:00 Docusate Sodium (Colace) 100 mg Q12H PRN PO CONSTIPATION Last administered on 04/22/17 17:07; Admin Dose 100 MG; Start 04/20/17 at 18:00 Zolpidem Tartrate (Ambien) 5 mg QHS PRN PO SLEEP Last administered on 21:04; Admin Dose 5 MG; Start 04/20/17 at 18:00 Pantoprazole (Protonix Tab) 40 mg DAILY@06 PO Last administered on 04/29/17 05 :12; Admin Dose 40 MG; Start 04/21/17 at 06:00 Amlodipine Besylate (Norvasc) 5 mg DAILY PO Last administered on 04/29/17 08: 23; Admin Dose 5 MG; Start 04/28/17 at 09:00 Hydralazine HCl 10 mg 10 mg Q6H PRN IV ELEVATED SYSTOLIC BP Last administered on 04/28/17 01:31; Admin Dose 10 MG; Start 04/28/17 at 00:00 Metronidazole 100 ml @ 100 mls/hr Q8H IVPB Last administered on 04/30/17 15: 25; Admin Dose 100 MLS/HR; Start 04/30/17 at 14:30; Stop 05/01/17 at 14:29 Potassium Chloride/Dextrose/ Sod Cl (D5-NS + KCl 20 Meq) 1,000 ml @ 100 mls/hr Q10H IV ; Start 04/30/17 at 14:13 Acetaminophen/ Hydrocodone Bitart ([place] (5/325)) 2 tab Q4H PRN PO Pain 6-10; Start 04/30/17 at 14:30 Acetaminophen/ Hydrocodone Bitart ([place] (5/325)) 1 tab Q4H PRN PO Pain 1-5; Start 04/30/17 at 14:30 Hydromorphone HCl (Dilaudid) 0.5 mg Q2H PRN IV Breakthrough PAIN; Start at 14:30 Morphine Sulfate (morphine) 2 mg Q2H PRN IV Breakthrough PAIN; Start 04/30/17 at 14:30 CAMILO SLAUGHTER MD Apr 30, 2017 15:44
[2017-04-30] MEDS: morphine 2 MG INJ IV PRN ×3 (16:42→22:33)
[2017-04-30] MEDS: D5-NS + KCL 20 MEQ 1,000 ML IV SCH (18:28)
--- NOTE | 2017-04-30 19:53 | RADRPT ---
PROCEDURE: Right upper extremity venous ultrasound CLINICAL INDICATION: Right arm pain and swelling, deep venous thrombosis TECHNIQUE: Davenport scale, color doppler, spectral doppler ultrasound imaging of the venous system of the right upper extremity. Augmentation maneuvers were utilized. COMPARISON: No prior studies are available for comparison. FINDINGS: RIGHT: Internal jugular vein: Patent. Subclavian vein: Patent. Axillary vein: Patent. Brachial vein: Patent. Basilic vein: Patent. Cephalic vein: Patent. Radial vein: Patent. Ulnar vein: Patent. IMPRESSION: No evidence of a deep vein thrombosis involving the right upper extremity. RPTAT: AADD .Corey Aguilar MD, MD Date Time Electronically viewed and signed by .Corey Aguilar MD, on 04/30/2017 19:53 .B/
[2017-05-01 01:56] VITALS: BP 105/54; RESP 20
[2017-05-01] MEDS: D5-NS + KCL 20 MEQ 1,000 ML IV SCH (05:59)
[2017-05-01] MEDS: PANTOPRAZOLE (EC) 40 MG TAB PO SCH (05:59)
[2017-05-01] MEDS: metroNIDAZOLE 500 MG/NS (PMX) 100 ML IVPB SCH (05:59)
[2017-05-01] MEDS: DOCUSATE SODIUM 100 MG CAP PO PRN (06:05)
[2017-05-01] MEDS: morphine 2 MG INJ IV PRN (06:05)
[2017-05-01] MEDS: AMLODIPINE 5 MG TAB PO SCH (08:10)
[2017-05-01 08:11] VITALS: BP 120/58; RESP 20
[2017-05-01] MEDS: HYDROCODONE/APAP (5/325) TAB PO PRN ×3 (08:11→20:36)
[2017-05-01 14:24] VITALS: BP 117/55; RESP 18
--- NOTE | 2017-05-01 15:37 | PN ---
Date/Time of Note Date/Time of Note DATE: 05/01/17 TIME: 15:36 Assessment/Plan VTE Prophylaxis VTE Prophylaxis Intervention: LMWH Lines/Catheters IV [facility]ter Type (from [facility]): Saline Lock Urinary Cath still in place: Yes Reason Cath still needed: urinary retention Assessment/Plan Chief Complaint/Hosp Course 81 yo female presenting wtih subacute CALDERON found to have iron deficiency anemia and subsequently diagnosed with localized colon cancer Colon cancer: - s/p hemicolectomy 04/30 - Post op management per surgery - Clear liquids today - Chemo as outpatient Iron deficiency anemia: - Iron supplementation Hypertension: - Continue amlodipine DIspo in coming days: PT/OT eval Problems: Subjective 24 Hr Interval Summary Free Text/Dictation s/p hemicolectomy yesterday Today no gas or BM yet Has abdominal pain Exam/Review of Systems Vital Signs Vitals Vital Signs Date Time Temp Pulse Resp B/P Pulse Ox O2 Delivery O2 Flow Rate FiO2 05/01/17 14:24 98.5 76 18 117/55 96 05/01/17 08:11 Room Air Intake and Output 04/30/17 04/30/17 05/01/17 14:59 22:59 06:59 Intake Total 1200 ml 100 ml 1300 ml Output Total 80 ml 1700 ml Balance 1120 ml 100 ml -400 ml Exam Constitutional: alert, oriented, well developed Psych: nl mood/affect, no complaints Head: atraumatic, normocephalic Eyes: EOMI, PERRL, nl conjunctiva, nl lids, nl sclera ENMT: nl external ears & nose, nl lips & teeth, nl nasal mucosa & septum Neck: non-tender, supple Respiratory: clear to auscultation, normal air movement Cardiovascular: nl pulses, regular rate and rhythm Gastrointestinal: nl liver, spleen, non-tender, soft Musculoskeletal: nl extremities to inspection, nl gait and stance Extremities: normal pulses Neurological: HIGH SPEED OPERATOR II-XII intact, nl mental status, nl speech, nl strength Skin: nl turgor, No rash or lesions Lymph: nl lymph nodes Results Result Diagram: 05/01/17 0516 05/01/17 0516 Results 24 hrs Laboratory Tests Test 05/01/17 05:16 05/01/17 07:04 White Blood Count 10.9 #H Red Blood Count 3.94 L Hemoglobin 8.8 L Hematocrit 30.4 L Mean Corpuscular Volume 77.2 L Mean Corpuscular Hemoglobin 22.3 L Mean Corpuscular Hemoglobin Concent 28.9 L Red Cell Distribution Width 26.7 H Platelet Count 487 H Mean Platelet Volume 9.1 Neutrophils % 80.5 H Lymphocytes % 9.5 L Monocytes % 8.9 Eosinophils % 0.3 Basophils % 0.4 Nucleated Red Blood Cells % 0.0 Neutrophils # 8.8 H Lymphocytes # 1.0 Monocytes # 1.0 H Eosinophils # 0.0 Basophils # 0.0 Nucleated Red Blood Cells # 0.0 Sodium Level 141 Potassium Level 3.7 Chloride Level 109 Carbon Dioxide Level 27 Anion Gap 9 Blood Urea Nitrogen 11 Creatinine 0.67 Glucose Level 122 Calcium Level 8.5 Urine Color YELLOW Urine Clarity CLEAR Urine pH 7.0 Urine Specific [place] 1.016 Urine Ketones NEGATIVE Urine Nitrite NEGATIVE Urine Bilirubin NEGATIVE Urine Urobilinogen NEGATIVE Urine Leukocyte Esterase NEGATIVE Urine Hemoglobin NEGATIVE Urine Glucose NEGATIVE Urine Total Protein NEGATIVE Medications Medications Current Medications Ondansetron HCl (Zofran Inj) 4 mg Q6H PRN IV NAUSEA AND/OR VOMITING Last administered on 04/30/17 18:49; Admin Dose 4 MG; Start 04/20/17 at 18:00 Acetaminophen (Tylenol Tab) 650 mg Q6H PRN PO PAIN LEVEL 1-3 OR FEVER Last administered on 04/23/17 23:01; Admin Dose 650 MG; Start 04/20/17 at 18:00 Acetaminophen/ Hydrocodone Bitart ([place] (5/325)) 1 tab Q6H PRN PO MODERATE PAIN LEVEL 4-6; Start 04/20/17 at 18:00 Docusate Sodium (Colace) 100 mg Q12H PRN PO CONSTIPATION Last administered on 05/01/17 06:05; Admin Dose 100 MG; Start 04/20/17 at 18:00 Zolpidem Tartrate (Ambien) 5 mg QHS PRN PO SLEEP Last administered on 21:04; Admin Dose 5 MG; Start 04/20/17 at 18:00 Pantoprazole (Protonix Tab) 40 mg DAILY@06 PO Last administered on 05/01/17 05 :59; Admin Dose 40 MG; Start 04/21/17 at 06:00 Amlodipine Besylate (Norvasc) 5 mg DAILY PO Last administered on 05/01/17 08: 10; Admin Dose 5 MG; Start 04/28/17 at 09:00 Hydralazine HCl (Apresoline) 10 mg Q6H PRN IV ELEVATED SYSTOLIC BP Last administered on 04/28/17 01:31; Admin Dose 10 MG; Start 04/28/17 at 00:00 Acetaminophen/ Hydrocodone Bitart ([place] (5/325)) 2 tab Q4H PRN PO Pain 6-10 Last administered on 05/01/17 15:17; Admin Dose 2 TAB; Start 04/30/17 at 14:30 Acetaminophen/ Hydrocodone Bitart ([place] (5/325)) 1 tab Q4H PRN PO Pain 1-5; Start 04/30/17 at 14:30 Hydromorphone HCl (Dilaudid) 0.5 mg Q2H PRN IV Breakthrough PAIN; Start at 14:30 Morphine Sulfate (morphine) 2 mg Q2H PRN IV Breakthrough PAIN Last administered on 05/01/17 06:05; Admin Dose 2 MG; Start 04/30/17 at 14:30 CAMILO SLAUGHTER MD May 01, 2017 15:37
[2017-05-01] MEDS: ENOXAPARIN 30 MG/0.3 ML SYG SC SCH (16:29)
--- NOTE | 2017-05-01 17:21 | PN ---
Date/Time of Note Date/Time of Note DATE: 05/01/17 TIME: 17:12 Assessment/Plan Lines/Catheters IV C[facility] Type ([facility] Saline Lock Aguilar in Place (from [facility]): Yes Assessment/Plan Chief Complaint/Hosp Course 1. Colon adenocarcinoma: CT: negative for metastatic disease however possible local lymphadenopathy; ONC rec's noted; s/p right colectomy -IS -ambulate -ice pack to abdominal wall -will advance diet with bowel function 2. Gastritis -Diet and lifestyle optimization -Antacids 3. Esophagitis -Diet and lifestyle optimization -Antacids 4. Hemorrhoids -Dietary and lifestyle optimization 5. Slow GI bleed, multifactorial, secondary to above -Transfuse as needed -As above 6. Anemia secondary to above -As above 7. Recent syncope and weakness secondary to above -Medical and cardiac optimization -As above 8. Leukocytosis: no fevers; likely reactive -monitor Thank you. Patient seen and examined in collaboration with Dr. Jw Sheppard. Problems: Subjective 24 Hr Interval Summary Abdominal tenderness and nausea. +bm but no flatus. Was started on clears by attending. Min dizziness. No fevers, chills, sob, congested cough, cp, palpitations, soto, v/d/dysuria. Exam/Review of Systems Vital Signs Vitals Vital Signs Date Time Temp Pulse Resp B/P Pulse Ox O2 Delivery O2 Flow Rate FiO2 05/01/17 14:24 98.5 76 18 117/55 96 05/01/17 08:11 Room Air Intake and Output 04/30/17 04/30/17 05/01/17 15:00 23:00 07:00 Intake Total 1200 ml 100 ml 1300 ml Output Total 80 ml 1700 ml Balance 1120 ml 100 ml -400 ml Exam Free Text/Dictation Constitutional: alert, oriented, No distress Psych: nl mood/affect, pleasant Head: atraumatic, normocephalic Eyes: EOMI, PERRL, nl conjunctiva, No icteric ENMT: mucosa pink and moist, nl external ears & nose, nl lips & teeth Neck: non-tender, supple, No jvd Respiratory: normal air movement, No congested cough, No labored breathing Cardiovascular: regular rate and rhythm, No edema Gastrointestinal: min-tender, soft, No distended, No firm, No rebound or guarding; incision sites dry without drainage Musculoskeletal: nl extremities to inspection, No joint tenderness, No range of motion restrictions. Extremities: normal pulses, No calf tenderness, No cyanosis Neurological: nl mental status, nl speech, nl strength Skin: nl turgor, No diaphoresis, No rash or lesions Lymph: nonpalpable lymph nodes Results Result Diagram: 05/01/17 0516 05/01/17 0516 GERALDO SILVA NP May 01, 2017 17:21
[2017-05-01 20:04] VITALS: BP 124/55; RESP 16
--- NOTE | 2017-05-01 23:52 | CONS ---
Date/Time of Note Date/Time of Note DATE: 05/01/17 TIME: 23:51 Assessment/Plan Assessment/Plan Chief Complaint/Hosp Course Severe symptomatic microcytic anemia WITH COLON ADENOCARCINOMA TIBC is elevated suggesting iron deficiency CT abdomen and pelvis shows no significant findings endoscopy noted, SURG EVAL - P, PATH - P Status post 2 unit packed red blood cells iv iron Path C-Proximal ascending colon mass, biopsies: -- Invasive moderately well-differentiated adenocarcinoma. PLAN - SURGERY Chronic interstitial lung disease. Post hysterectomy. Problems: Consultation Date/Type/Reason Admit Date/Time Apr 20, 2017 at 12:35 Initial Consult Date 04/21/17 Type of Consultation: HEMEONC Referring Provider: CAMILO SLAUGHTER MD 24 HR Interval Summary Free Text/Dictation ALL NOTED Exam/Review of Systems Vital Signs Vitals Vital Signs Date Time Temp Pulse Resp B/P Pulse Ox O2 Delivery O2 Flow Rate FiO2 05/01/17 20:04 98.6 72 16 124/55 95 05/01/17 08:11 Room Air Intake and Output 04/30/17 04/30/17 05/01/17 15:00 23:00 07:00 Intake Total 1200 ml 100 ml 1300 ml Output Total 80 ml 1700 ml Balance 1120 ml 100 ml -400 ml [facility] [address] [place] [address] ; Lab No: [id number] Date: 04/23/2017 SPECIMEN: A-Gastric biopsy B-Rectal colon polyp biopsy C-Proximal ascending colon mass biopsy CLINICAL: Anemia GROSS EXAMINATION: A-Received in formalin are two fragments of andujar, soft tissue measuring 0.3 x 0.2 x 0.3 cm each. Totally embedded in one cassette. B-Received in formalin is one fragment of andujar, soft tissue measuring 0.5 x 0.2 x 0.2 cm. Totally embedded in one cassette. C-Received in formalin are three fragments of andujar, soft tissue ranging from 0.3 to 0.6 cm in greatest dimension and measuring 0.5 x 0.5 x 0.3 cm in aggregate. Totally embedded in one cassette. MICROSCOPIC DIAGNOSIS: A-Gastric biopsies: -- Moderate superficial chronic gastritis with a small lymphoid aggregate and focal intestinal metaplasia. -- A Giemsa stain with an appropriate control, is negative for Helicobacter pylori organisms (please see comment). -- No malignancy or dysplasia is identified. B-Rectal polyp biopsy: -- Early hyperplastic polyp. C-Proximal ascending colon mass, biopsies: -- Invasive moderately well-differentiated adenocarcinoma. COMMENT: Helicobacter pylori organisms can be patchy in distribution and can be negative in an area of intestinal metaplasia. The above findings are reported to Dr. Olive Wilson on 04/26/17. /CASSI/lorena/tania Date of Service: 04/23/17; Date Received: 04/24/17 Dictated: 04/26/17; Transcribed: 04/26/17; Sent by Fax: 04/26/17; Reviewed: ARNULFO (C) Keyana Matos M.D. Pathologist Electronically Signed 04/26/2017 KAYLEE GONZALEZ M.D. PATIENT: ALEXANDRE CHIANG [employer] Laboratory AGE/SEX/: 81/F 1935 MR NO: [id number] VISIT: [id number] ROOM NO: [id number] PHYSICIAN: Yue AVILA, Hugh WILSON M.D., MORDO TISSUE EXAMINATION REPORT Results Result Diagram: 05/01/17 0516 05/01/17 0516 Results 24 hrs Laboratory Tests Test 05/01/17 05:16 05/01/17 07:04 White Blood Count 10.9 #H Red Blood Count 3.94 L Hemoglobin 8.8 L Hematocrit 30.4 L Mean Corpuscular Volume 77.2 L Mean Corpuscular Hemoglobin 22.3 L Mean Corpuscular Hemoglobin Concent 28.9 L Red Cell Distribution Width 26.7 H Platelet Count 487 H Mean Platelet Volume 9.1 Neutrophils % 80.5 H Lymphocytes % 9.5 L Monocytes % 8.9 Eosinophils % 0.3 Basophils % 0.4 Nucleated Red Blood Cells % 0.0 Neutrophils # 8.8 H Lymphocytes # 1.0 Monocytes # 1.0 H Eosinophils # 0.0 Basophils # 0.0 Nucleated Red Blood Cells # 0.0 Sodium Level 141 Potassium Level 3.7 Chloride Level 109 Carbon Dioxide Level 27 Anion Gap 9 Blood Urea Nitrogen 11 Creatinine 0.67 Glucose Level 122 Calcium Level 8.5 Urine Color YELLOW Urine Clarity CLEAR Urine pH 7.0 Urine Specific [place] 1.016 Urine Ketones NEGATIVE Urine Nitrite NEGATIVE Urine Bilirubin NEGATIVE Urine Urobilinogen NEGATIVE Urine Leukocyte Esterase NEGATIVE Urine Hemoglobin NEGATIVE Urine Glucose NEGATIVE Urine Total Protein NEGATIVE Medications Medications Current Medications Ondansetron HCl (Zofran Inj) 4 mg Q6H PRN IV NAUSEA AND/OR VOMITING Last administered on 04/30/17 18:49; Admin Dose 4 MG; Start 04/20/17 at 18:00 Acetaminophen (Tylenol Tab) 650 mg Q6H PRN PO PAIN LEVEL 1-3 OR FEVER Last administered on 04/23/17 23:01; Admin Dose 650 MG; Start 04/20/17 at 18:00 Acetaminophen/ Hydrocodone Bitart ([place] (5/325)) 1 tab Q6H PRN PO MODERATE PAIN LEVEL 4-6; Start 04/20/17 at 18:00 Docusate Sodium (Colace) 100 mg Q12H PRN PO CONSTIPATION Last administered on 05/01/17 06:05; Admin Dose 100 MG; Start 04/20/17 at 18:00 Zolpidem Tartrate (Ambien) 5 mg QHS PRN PO SLEEP Last administered on 21:04; Admin Dose 5 MG; Start 04/20/17 at 18:00 Pantoprazole (Protonix Tab) 40 mg DAILY@06 PO Last administered on 05/01/17 05 :59; Admin Dose 40 MG; Start 04/21/17 at 06:00 Amlodipine Besylate (Norvasc) 5 mg DAILY PO Last administered on 05/01/17 08: 10; Admin Dose 5 MG; Start 04/28/17 at 09:00 Hydralazine HCl (Apresoline) 10 mg Q6H PRN IV ELEVATED SYSTOLIC BP Last administered on 04/28/17 01:31; Admin Dose 10 MG; Start 04/28/17 at 00:00 Acetaminophen/ Hydrocodone Bitart ([place] (5/325)) 2 tab Q4H PRN PO Pain 6-10 Last administered on 05/01/17 20:36; Admin Dose 2 TAB; Start 04/30/17 at 14:30 Acetaminophen/ Hydrocodone Bitart ([place] (5/325)) 1 tab Q4H PRN PO Pain 1-5; Start 04/30/17 at 14:30 Hydromorphone HCl (Dilaudid) 0.5 mg Q2H PRN IV Breakthrough PAIN; Start at 14:30 Morphine Sulfate (morphine) 2 mg Q2H PRN IV Breakthrough PAIN Last administered on 05/01/17 06:05; Admin Dose 2 MG; Start 04/30/17 at 14:30 Enoxaparin Sodium (Lovenox) 30 mg DAILY SC Last administered on 05/01/17 16:29 ; Admin Dose 30 MG; Start 05/01/17 at 16:00 BRANDY BONILLA MD May 01, 2017 23:52
--- NOTE | 2017-05-01 23:52 | CONS ---
Date/Time of Note Date/Time of Note DATE: 05/01/17 TIME: 23:51 Assessment/Plan Assessment/Plan Chief Complaint/Hosp Course Severe symptomatic microcytic anemia WITH COLON ADENOCARCINOMA TIBC is elevated suggesting iron deficiency CT abdomen and pelvis shows no significant findings endoscopy noted, SURG EVAL - P, PATH - P Status post 2 unit packed red blood cells iv iron Path C-Proximal ascending colon mass, biopsies: -- Invasive moderately well-differentiated adenocarcinoma. PLAN - SURGERY Chronic interstitial lung disease. Post hysterectomy. Problems: Consultation Date/Type/Reason Admit Date/Time Apr 20, 2017 at 12:35 Initial Consult Date 04/21/17 Type of Consultation: HEMEONC Referring Provider: CAMILO SLAUGHTER MD 24 HR Interval Summary Free Text/Dictation ALL NOTED Exam/Review of Systems Vital Signs Vitals Vital Signs Date Time Temp Pulse Resp B/P Pulse Ox O2 Delivery O2 Flow Rate FiO2 05/01/17 20:04 98.6 72 16 124/55 95 05/01/17 08:11 Room Air Intake and Output 04/30/17 04/30/17 05/01/17 15:00 23:00 07:00 Intake Total 1200 ml 100 ml 1300 ml Output Total 80 ml 1700 ml Balance 1120 ml 100 ml -400 ml [facility]profit [facility] [address] [place] [address] ; Lab No: [id number] Date: 04/23/2017 SPECIMEN: A-Gastric biopsy B-Rectal colon polyp biopsy C-Proximal ascending colon mass biopsy CLINICAL: Anemia GROSS EXAMINATION: A-Received in formalin are two fragments of andujar, soft tissue measuring 0.3 x 0.2 x 0.3 cm each. Totally embedded in one cassette. B-Received in formalin is one fragment of andujar, soft tissue measuring 0.5 x 0.2 x 0.2 cm. Totally embedded in one cassette. C-Received in formalin are three fragments of andujar, soft tissue ranging from 0.3 to 0.6 cm in greatest dimension and measuring 0.5 x 0.5 x 0.3 cm in aggregate. Totally embedded in one cassette. MICROSCOPIC DIAGNOSIS: A-Gastric biopsies: -- Moderate superficial chronic gastritis with a small lymphoid aggregate and focal intestinal metaplasia. -- A Giemsa stain with an appropriate control, is negative for Helicobacter pylori organisms (please see comment). -- No malignancy or dysplasia is identified. B-Rectal polyp biopsy: -- Early hyperplastic polyp. C-Proximal ascending colon mass, biopsies: -- Invasive moderately well-differentiated adenocarcinoma. COMMENT: Helicobacter pylori organisms can be patchy in distribution and can be negative in an area of intestinal metaplasia. The above findings are reported to Dr. Olive Wilson on 04/26/17. /CASSI/lorena/tania Date of Service: 04/23/17; Date Received: 04/24/17 Dictated: 04/26/17; Transcribed: 04/26/17; Sent by Fax: 04/26/17; Reviewed: ARNULFO (C) Keyana Matos M.D. Pathologist Electronically Signed 04/26/2017 KAYLEE GONZALEZ M.D. PATIENT: ALEXANDRE CHIANG [employer] Laboratory AGE/SEX/: 81/F 1935 MR NO: [id number] VISIT: [id number] ROOM NO: [id number] PHYSICIAN: Yue AVILA, Hugh WILSON M.D., MORDO TISSUE EXAMINATION REPORT Results Result Diagram: 05/01/17 0516 05/01/17 0516 Results 24 hrs Laboratory Tests Test 05/01/17 05:16 05/01/17 07:04 White Blood Count 10.9 #H Red Blood Count 3.94 L Hemoglobin 8.8 L Hematocrit 30.4 L Mean Corpuscular Volume 77.2 L Mean Corpuscular Hemoglobin 22.3 L Mean Corpuscular Hemoglobin Concent 28.9 L Red Cell Distribution Width 26.7 H Platelet Count 487 H Mean Platelet Volume 9.1 Neutrophils % 80.5 H Lymphocytes % 9.5 L Monocytes % 8.9 Eosinophils % 0.3 Basophils % 0.4 Nucleated Red Blood Cells % 0.0 Neutrophils # 8.8 H Lymphocytes # 1.0 Monocytes # 1.0 H Eosinophils # 0.0 Basophils # 0.0 Nucleated Red Blood Cells # 0.0 Sodium Level 141 Potassium Level 3.7 Chloride Level 109 Carbon Dioxide Level 27 Anion Gap 9 Blood Urea Nitrogen 11 Creatinine 0.67 Glucose Level 122 Calcium Level 8.5 Urine Color YELLOW Urine Clarity CLEAR Urine pH 7.0 Urine Specific [place] 1.016 Urine Ketones NEGATIVE Urine Nitrite NEGATIVE Urine Bilirubin NEGATIVE Urine Urobilinogen NEGATIVE Urine Leukocyte Esterase NEGATIVE Urine Hemoglobin NEGATIVE Urine Glucose NEGATIVE Urine Total Protein NEGATIVE Medications Medications Current Medications Ondansetron HCl (Zofran Inj) 4 mg Q6H PRN IV NAUSEA AND/OR VOMITING Last administered on 04/30/17 18:49; Admin Dose 4 MG; Start 04/20/17 at 18:00 Acetaminophen (Tylenol Tab) 650 mg Q6H PRN PO PAIN LEVEL 1-3 OR FEVER Last administered on 04/23/17 23:01; Admin Dose 650 MG; Start 04/20/17 at 18:00 Acetaminophen/ Hydrocodone Bitart ([place] (5/325)) 1 tab Q6H PRN PO MODERATE PAIN LEVEL 4-6; Start 04/20/17 at 18:00 Docusate Sodium (Colace) 100 mg Q12H PRN PO CONSTIPATION Last administered on 05/01/17 06:05; Admin Dose 100 MG; Start 04/20/17 at 18:00 Zolpidem Tartrate (Ambien) 5 mg QHS PRN PO SLEEP Last administered on 21:04; Admin Dose 5 MG; Start 04/20/17 at 18:00 Pantoprazole (Protonix Tab) 40 mg DAILY@06 PO Last administered on 05/01/17 05 :59; Admin Dose 40 MG; Start 04/21/17 at 06:00 Amlodipine Besylate (Norvasc) 5 mg DAILY PO Last administered on 05/01/17 08: 10; Admin Dose 5 MG; Start 04/28/17 at 09:00 Hydralazine HCl (Apresoline) 10 mg Q6H PRN IV ELEVATED SYSTOLIC BP Last administered on 04/28/17 01:31; Admin Dose 10 MG; Start 04/28/17 at 00:00 Acetaminophen/ Hydrocodone Bitart ([place] (5/325)) 2 tab Q4H PRN PO Pain 6-10 Last administered on 05/01/17 20:36; Admin Dose 2 TAB; Start 04/30/17 at 14:30 Acetaminophen/ Hydrocodone Bitart ([place] (5/325)) 1 tab Q4H PRN PO Pain 1-5; Start 04/30/17 at 14:30 Hydromorphone HCl (Dilaudid) 0.5 mg Q2H PRN IV Breakthrough PAIN; Start at 14:30 Morphine Sulfate (morphine) 2 mg Q2H PRN IV Breakthrough PAIN Last administered on 05/01/17 06:05; Admin Dose 2 MG; Start 04/30/17 at 14:30 Enoxaparin Sodium (Lovenox) 30 mg DAILY SC Last administered on 05/01/17 16:29 ; Admin Dose 30 MG; Start 05/01/17 at 16:00 BRANDY BONILLA MD May 01, 2017 23:52
--- NOTE | 2017-05-01 23:52 | CONS ---
Date/Time of Note Date/Time of Note DATE: 05/01/17 TIME: 23:51 Assessment/Plan Assessment/Plan Chief Complaint/Hosp Course Severe symptomatic microcytic anemia WITH COLON ADENOCARCINOMA TIBC is elevated suggesting iron deficiency CT abdomen and pelvis shows no significant findings endoscopy noted, SURG EVAL - P, PATH - P Status post 2 unit packed red blood cells iv iron Path C-Proximal ascending colon mass, biopsies: -- Invasive moderately well-differentiated adenocarcinoma. PLAN - SURGERY Chronic interstitial lung disease. Post hysterectomy. Problems: Consultation Date/Type/Reason Admit Date/Time Apr 20, 2017 at 12:35 Initial Consult Date 04/21/17 Type of Consultation: HEMEONC Referring Provider: CAMILO SLAUGHTER MD 24 HR Interval Summary Free Text/Dictation ALL NOTED Exam/Review of Systems Vital Signs Vitals Vital Signs Date Time Temp Pulse Resp B/P Pulse Ox O2 Delivery O2 Flow Rate FiO2 05/01/17 20:04 98.6 72 16 124/55 95 05/01/17 08:11 Room Air Intake and Output 04/30/17 04/30/17 05/01/17 15:00 23:00 07:00 Intake Total 1200 ml 100 ml 1300 ml Output Total 80 ml 1700 ml Balance 1120 ml 100 ml -400 ml [facility] asset [address] [place] [address] ; Lab No: [id number] Date: 04/23/2017 SPECIMEN: A-Gastric biopsy B-Rectal colon polyp biopsy C-Proximal ascending colon mass biopsy CLINICAL: Anemia GROSS EXAMINATION: A-Received in formalin are two fragments of andujar, soft tissue measuring 0.3 x 0.2 x 0.3 cm each. Totally embedded in one cassette. B-Received in formalin is one fragment of andujar, soft tissue measuring 0.5 x 0.2 x 0.2 cm. Totally embedded in one cassette. C-Received in formalin are three fragments of andujar, soft tissue ranging from 0.3 to 0.6 cm in greatest dimension and measuring 0.5 x 0.5 x 0.3 cm in aggregate. Totally embedded in one cassette. MICROSCOPIC DIAGNOSIS: A-Gastric biopsies: -- Moderate superficial chronic gastritis with a small lymphoid aggregate and focal intestinal metaplasia. -- A Giemsa stain with an appropriate control, is negative for Helicobacter pylori organisms (please see comment). -- No malignancy or dysplasia is identified. B-Rectal polyp biopsy: -- Early hyperplastic polyp. C-Proximal ascending colon mass, biopsies: -- Invasive moderately well-differentiated adenocarcinoma. COMMENT: Helicobacter pylori organisms can be patchy in distribution and can be negative in an area of intestinal metaplasia. The above findings are reported to Dr. Olive Wilson on 04/26/17. /CASSI/lorena/tania Date of Service: 04/23/17; Date Received: 04/24/17 Dictated: 04/26/17; Transcribed: 04/26/17; Sent by Fax: 04/26/17; Reviewed: ARNULFO (C) Keyana Matos M.D. Pathologist Electronically Signed 04/26/2017 KAYLEE GONZALEZ M.D. PATIENT: ALEXANDRE CHIANG Family Law Paralegal of Laboratory AGE/SEX/: 81/F 1935 MR NO: [id number] VISIT: [id number] ROOM NO: [id number] PHYSICIAN: Yue AVILA, Hugh WILSON M.D., MORDO TISSUE EXAMINATION REPORT Results Result Diagram: 05/01/17 0516 05/01/17 0516 Results 24 hrs Laboratory Tests Test 05/01/17 05:16 05/01/17 07:04 White Blood Count 10.9 #H Red Blood Count 3.94 L Hemoglobin 8.8 L Hematocrit 30.4 L Mean Corpuscular Volume 77.2 L Mean Corpuscular Hemoglobin 22.3 L Mean Corpuscular Hemoglobin Concent 28.9 L Red Cell Distribution Width 26.7 H Platelet Count 487 H Mean Platelet Volume 9.1 Neutrophils % 80.5 H Lymphocytes % 9.5 L Monocytes % 8.9 Eosinophils % 0.3 Basophils % 0.4 Nucleated Red Blood Cells % 0.0 Neutrophils # 8.8 H Lymphocytes # 1.0 Monocytes # 1.0 H Eosinophils # 0.0 Basophils # 0.0 Nucleated Red Blood Cells # 0.0 Sodium Level 141 Potassium Level 3.7 Chloride Level 109 Carbon Dioxide Level 27 Anion Gap 9 Blood Urea Nitrogen 11 Creatinine 0.67 Glucose Level 122 Calcium Level 8.5 Urine Color YELLOW Urine Clarity CLEAR Urine pH 7.0 Urine Specific [place] 1.016 Urine Ketones NEGATIVE Urine Nitrite NEGATIVE Urine Bilirubin NEGATIVE Urine Urobilinogen NEGATIVE Urine Leukocyte Esterase NEGATIVE Urine Hemoglobin NEGATIVE Urine Glucose NEGATIVE Urine Total Protein NEGATIVE Medications Medications Current Medications Ondansetron HCl (Zofran Inj) 4 mg Q6H PRN IV NAUSEA AND/OR VOMITING Last administered on 04/30/17 18:49; Admin Dose 4 MG; Start 04/20/17 at 18:00 Acetaminophen (Tylenol Tab) 650 mg Q6H PRN PO PAIN LEVEL 1-3 OR FEVER Last administered on 04/23/17 23:01; Admin Dose 650 MG; Start 04/20/17 at 18:00 Acetaminophen/ Hydrocodone Bitart ([place] (5/325)) 1 tab Q6H PRN PO MODERATE PAIN LEVEL 4-6; Start 04/20/17 at 18:00 Docusate Sodium (Colace) 100 mg Q12H PRN PO CONSTIPATION Last administered on 05/01/17 06:05; Admin Dose 100 MG; Start 04/20/17 at 18:00 Zolpidem Tartrate (Ambien) 5 mg QHS PRN PO SLEEP Last administered on 21:04; Admin Dose 5 MG; Start 04/20/17 at 18:00 Pantoprazole (Protonix Tab) 40 mg DAILY@06 PO Last administered on 05/01/17 05 :59; Admin Dose 40 MG; Start 04/21/17 at 06:00 Amlodipine Besylate (Norvasc) 5 mg DAILY PO Last administered on 05/01/17 08: 10; Admin Dose 5 MG; Start 04/28/17 at 09:00 Hydralazine HCl (Apresoline) 10 mg Q6H PRN IV ELEVATED SYSTOLIC BP Last administered on 04/28/17 01:31; Admin Dose 10 MG; Start 04/28/17 at 00:00 Acetaminophen/ Hydrocodone Bitart ([place] (5/325)) 2 tab Q4H PRN PO Pain 6-10 Last administered on 05/01/17 20:36; Admin Dose 2 TAB; Start 04/30/17 at 14:30 Acetaminophen/ Hydrocodone Bitart ([place] (5/325)) 1 tab Q4H PRN PO Pain 1-5; Start 04/30/17 at 14:30 Hydromorphone HCl (Dilaudid) 0.5 mg Q2H PRN IV Breakthrough PAIN; Start at 14:30 Morphine Sulfate (morphine) 2 mg Q2H PRN IV Breakthrough PAIN Last administered on 05/01/17 06:05; Admin Dose 2 MG; Start 04/30/17 at 14:30 Enoxaparin Sodium (Lovenox) 30 mg DAILY SC Last administered on 05/01/17 16:29 ; Admin Dose 30 MG; Start 05/01/17 at 16:00 BRANDY BONILLA MD May 01, 2017 23:52
[2017-05-02 01:26] VITALS: BP 138/63; RESP 16
[2017-05-02] MEDS: HYDROCODONE/APAP (5/325) TAB PO PRN ×2 (04:00→19:02)
[2017-05-02] MEDS: DOCUSATE SODIUM 100 MG CAP PO PRN (04:01)
[2017-05-02] MEDS: PANTOPRAZOLE (EC) 40 MG TAB PO SCH (06:34)
[2017-05-02 07:15] VITALS: BP 131/63; RESP 16
[2017-05-02] MEDS: AMLODIPINE 5 MG TAB PO SCH (10:29)
[2017-05-02] MEDS: ENOXAPARIN 30 MG/0.3 ML SYG SC SCH (10:30)
[2017-05-02] MEDS: ACETAMINOPHEN 325 MG TAB PO PRN (11:56)
--- NOTE | 2017-05-02 11:58 | PN ---
Date/Time of Note Date/Time of Note DATE: 05/02/17 TIME: 11:55 Assessment/Plan Lines/Catheters IV Catheter Type (from [facility] [place]): Saline Lock Aguilar in Place (from [facility] [place]): No Assessment/Plan Chief Complaint/Hosp Course 1. Colon adenocarcinoma: CT: negative for metastatic disease however possible local lymphadenopathy; ONC rec's noted; s/p right colectomy -IS -ambulate -ice pack to abdominal wall -will advance diet with further bowel function; keep on clears for now 2. Gastritis -Diet and lifestyle optimization -Antacids 3. Esophagitis -Diet and lifestyle optimization -Antacids 4. Hemorrhoids -Dietary and lifestyle optimization 5. Slow GI bleed, multifactorial, secondary to above -Transfuse as needed -As above 6. Anemia secondary to above -As above 7. Recent syncope and weakness secondary to above -Medical and cardiac optimization -As above 8. Leukocytosis: no fevers; likely reactive -trend labs -monitor Thank you. Patient seen and examined in collaboration with Dr. Jw Sheppard. Problems: Subjective 24 Hr Interval Summary C/o dizziness and nausea. No flatus/bm. Incision sites dry and without drainage. No fevers, chills, sob, congested cough, cp, palpitations, soto, dizziness, v/d/dysuria. Exam/Review of Systems Vital Signs Vitals Vital Signs Date Time Temp Pulse Resp B/P Pulse Ox O2 Delivery O2 Flow Rate FiO2 05/02/17 07:15 97.9 69 16 131/63 97 05/01/17 08:11 Room Air Intake and Output 05/01/17 05/01/17 05/02/17 15:00 23:00 07:00 Intake Total 900 ml 400 ml 850 ml Balance 900 ml 400 ml 850 ml Exam Free Text/Dictation Constitutional: alert, oriented, No distress Psych: nl mood/affect, pleasant Head: atraumatic, normocephalic Eyes: EOMI, PERRL, nl conjunctiva, No icteric ENMT: mucosa pink and moist, nl external ears & nose, nl lips & teeth Neck: non-tender, supple, No jvd Respiratory: normal air movement, No congested cough, No labored breathing Cardiovascular: regular rate and rhythm, No edema Gastrointestinal: min-tender, soft, No distended, No firm, No rebound or guarding; incision sites dry without drainage Musculoskeletal: nl extremities to inspection, No joint tenderness, No range of motion restrictions. Extremities: normal pulses, No calf tenderness, No cyanosis Neurological: nl mental status, nl speech, nl strength Skin: nl turgor, No diaphoresis, No rash or lesions Lymph: nonpalpable lymph nodes Results Result Diagram: 05/01/17 0516 05/01/17 0516 GERALDO SILVA NP May 02, 2017 11:58
[2017-05-02 14:00] VITALS: BP 109/50; RESP 16
--- NOTE | 2017-05-02 15:02 | PN ---
Date/Time of Note Date/Time of Note DATE: 05/02/17 TIME: 15:01 Assessment/Plan VTE Prophylaxis VTE Prophylaxis Intervention: LMWH Lines/Catheters IV Catheter Type (from [facility]): Saline Lock Urinary Cath still in place: No Assessment/Plan Chief Complaint/Hosp Course 81 yo female presenting wtih subacute CALDERON found to have iron deficiency anemia and subsequently diagnosed with localized colon cancer Colon cancer: - s/p hemicolectomy 04/30 - Post op management per surgery - Clear liquids, advance as tolerated - Further oncologic care as outpatient Iron deficiency anemia: - Iron supplementation Hypertension: - Continue amlodipine DIspo in coming days: PT/OT eval for placement options Problems: Subjective 24 Hr Interval Summary Free Text/Dictation Had BM, tolerating clears Not wanting to get out of bed to ambualte Exam/Review of Systems Vital Signs Vitals Vital Signs Date Time Temp Pulse Resp B/P Pulse Ox O2 Delivery O2 Flow Rate FiO2 05/02/17 07:15 97.9 69 16 131/63 97 05/01/17 08:11 Room Air Intake and Output 05/01/17 05/01/17 05/02/17 15:00 23:00 07:00 Intake Total 900 ml 400 ml 850 ml Balance 900 ml 400 ml 850 ml Exam Constitutional: alert, oriented, well developed Psych: nl mood/affect, no complaints Head: atraumatic, normocephalic Eyes: EOMI, PERRL, nl conjunctiva, nl lids, nl sclera ENMT: nl external ears & nose, nl lips & teeth, nl nasal mucosa & septum Neck: non-tender, supple Respiratory: clear to auscultation, normal air movement Cardiovascular: nl pulses, regular rate and rhythm Gastrointestinal: nl liver, spleen, non-tender, soft Musculoskeletal: nl extremities to inspection, nl gait and stance Extremities: normal pulses Neurological: FIRE WATCHMAN II-XII intact, nl mental status, nl speech, nl strength Skin: nl turgor, No rash or lesions Lymph: nl lymph nodes Results Result Diagram: 05/01/17 0516 05/01/17515 Medications Medications Current Medications Ondansetron HCl (Zofran Inj) 4 mg Q6H PRN IV NAUSEA AND/OR VOMITING Last administered on 04/30/17t 18:49; Admin Dose 4 MG; Start 04/20/17 at 18:00 Acetaminophen (Tylenol Tab) 650 mg Q6H PRN PO PAIN LEVEL 1-3 OR FEVER Last administered on 05/02/17 11:56; Admin Dose 650 MG; Start 04/20/17 at 18:00 Acetaminophen/ Hydrocodone Bitart ([place] (5/325)) 1 tab Q6H PRN PO MODERATE PAIN LEVEL 4-6; Start 04/20/17 at 18:00 Docusate Sodium (Colace) 100 mg Q12H PRN PO CONSTIPATION Last administered on 05/02/17 04:01; Admin Dose 100 MG; Start 04/20/17 at 18:00 Zolpidem Tartrate (Ambien) 5 mg QHS PRN PO SLEEP Last administered on 21:04; Admin Dose 5 MG; Start 04/20/17 at 18:00 Pantoprazole (Protonix Tab) 40 mg DAILY@06 PO Last administered on 05/02/17 06 :34; Admin Dose 40 MG; Start 04/21/17 at 06:00 Hydralazine HCl (Apresoline) 10 mg Q6H PRN IV ELEVATED SYSTOLIC BP Last administered on 04/28/17 01:31; Admin Dose 10 MG; Start 04/28/17 at 00:00 Acetaminophen/ Hydrocodone Bitart ([place] (5/325)) 2 tab Q4H PRN PO Pain 6-10 Last administered on 05/02/17 04:00; Admin Dose 2 TAB; Start 04/30/17 at 14:30 Acetaminophen/ Hydrocodone Bitart ([place] (5/325)) 1 tab Q4H PRN PO Pain 1-5; Start 04/30/17 at 14:30 Hydromorphone HCl (Dilaudid) 0.5 mg Q2H PRN IV Breakthrough PAIN; Start at 14:30 Morphine Sulfate (morphine) 2 mg Q2H PRN IV Breakthrough PAIN Last administered on 05/01/17 06:05; Admin Dose 2 MG; Start 04/30/17 at 14:30 Enoxaparin Sodium (Lovenox) 30 mg DAILY SC Last administered on 05/02/17 10:30 ; Admin Dose 30 MG; Start 05/01/17 at 16:00 CAMILO SLAUGHTER MD May 02, 2017 15:02
--- NOTE | 2017-05-02 15:02 | PN ---
Date/Time of Note Date/Time of Note DATE: 05/02/17 TIME: 15:01 Assessment/Plan VTE Prophylaxis VTE Prophylaxis Intervention: LMWH Lines/Catheters IV C[facility]ter Type (from [facility] Saline Lock Urinary Cath still in place: No Assessment/Plan Chief Complaint/Hosp Course 81 yo female presenting wtih subacute CALDERON found to have iron deficiency anemia and subsequently diagnosed with localized colon cancer Colon cancer: - s/p hemicolectomy 04/30 - Post op management per surgery - Clear liquids, advance as tolerated - Further oncologic care as outpatient Iron deficiency anemia: - Iron supplementation Hypertension: - Continue amlodipine DIspo in coming days: PT/OT eval for placement options Problems: Subjective 24 Hr Interval Summary Free Text/Dictation Had BM, tolerating clears Not wanting to get out of bed to ambualte Exam/Review of Systems Vital Signs Vitals Vital Signs Date Time Temp Pulse Resp B/P Pulse Ox O2 Delivery O2 Flow Rate FiO2 05/02/17 07:15 97.9 69 16 131/63 97 05/01/17 08:11 Room Air Intake and Output 05/01/17 05/01/17 05/02/17 15:00 23:00 07:00 Intake Total 900 ml 400 ml 850 ml Balance 900 ml 400 ml 850 ml Exam Constitutional: alert, oriented, well developed Psych: nl mood/affect, no complaints Head: atraumatic, normocephalic Eyes: EOMI, PERRL, nl conjunctiva, nl lids, nl sclera ENMT: nl external ears & nose, nl lips & teeth, nl nasal mucosa & septum Neck: non-tender, supple Respiratory: clear to auscultation, normal air movement Cardiovascular: nl pulses, regular rate and rhythm Gastrointestinal: nl liver, spleen, non-tender, soft Musculoskeletal: nl extremities to inspection, nl gait and stance Extremities: normal pulses Neurological: CIVIL ENGINEERING DRAFTER II-XII intact, nl mental status, nl speech, nl strength Skin: nl turgor, No rash or lesions Lymph: nl lymph nodes Results Result Diagram: 05/01/17 0516 05/01/17515 Medications Medications Current Medications Ondansetron HCl (Zofran Inj) 4 mg Q6H PRN IV NAUSEA AND/OR VOMITING Last administered on 04/30/17t 18:49; Admin Dose 4 MG; Start 04/20/17 at 18:00 Acetaminophen (Tylenol Tab) 650 mg Q6H PRN PO PAIN LEVEL 1-3 OR FEVER Last administered on 05/02/17 11:56; Admin Dose 650 MG; Start 04/20/17 at 18:00 Acetaminophen/ Hydrocodone Bitart ([place] (5/325)) 1 tab Q6H PRN PO MODERATE PAIN LEVEL 4-6; Start 04/20/17 at 18:00 Docusate Sodium (Colace) 100 mg Q12H PRN PO CONSTIPATION Last administered on 05/02/17 04:01; Admin Dose 100 MG; Start 04/20/17 at 18:00 Zolpidem Tartrate (Ambien) 5 mg QHS PRN PO SLEEP Last administered on 21:04; Admin Dose 5 MG; Start 04/20/17 at 18:00 Pantoprazole (Protonix Tab) 40 mg DAILY@06 PO Last administered on 05/02/17 06 :34; Admin Dose 40 MG; Start 04/21/17 at 06:00 Hydralazine HCl (Apresoline) 10 mg Q6H PRN IV ELEVATED SYSTOLIC BP Last administered on 04/28/17 01:31; Admin Dose 10 MG; Start 04/28/17 at 00:00 Acetaminophen/ Hydrocodone Bitart ([place] (5/325)) 2 tab Q4H PRN PO Pain 6-10 Last administered on 05/02/17 04:00; Admin Dose 2 TAB; Start 04/30/17 at 14:30 Acetaminophen/ Hydrocodone Bitart ([place] (5/325)) 1 tab Q4H PRN PO Pain 1-5; Start 04/30/17 at 14:30 Hydromorphone HCl (Dilaudid) 0.5 mg Q2H PRN IV Breakthrough PAIN; Start at 14:30 Morphine Sulfate (morphine) 2 mg Q2H PRN IV Breakthrough PAIN Last administered on 05/01/17 06:05; Admin Dose 2 MG; Start 04/30/17 at 14:30 Enoxaparin Sodium (Lovenox) 30 mg DAILY SC Last administered on 05/02/17 10:30 ; Admin Dose 30 MG; Start 05/01/17 at 16:00 CAMILO SLAUGHTER MD May 02, 2017 15:02
--- NOTE | 2017-05-02 15:02 | PN ---
Date/Time of Note Date/Time of Note DATE: 05/02/17 TIME: 15:01 Assessment/Plan VTE Prophylaxis VTE Prophylaxis Intervention: LMWH Lines/Catheters IV Catheter Type (from [facility]): Saline Lock Urinary Cath still in place: No Assessment/Plan Chief Complaint/Hosp Course 81 yo female presenting wtih subacute CALDERON found to have iron deficiency anemia and subsequently diagnosed with localized colon cancer Colon cancer: - s/p hemicolectomy 04/30 - Post op management per surgery - Clear liquids, advance as tolerated - Further oncologic care as outpatient Iron deficiency anemia: - Iron supplementation Hypertension: - Continue amlodipine DIspo in coming days: PT/OT eval for placement options Problems: Subjective 24 Hr Interval Summary Free Text/Dictation Had BM, tolerating clears Not wanting to get out of bed to ambualte Exam/Review of Systems Vital Signs Vitals Vital Signs Date Time Temp Pulse Resp B/P Pulse Ox O2 Delivery O2 Flow Rate FiO2 05/02/17 07:15 97.9 69 16 131/63 97 05/01/17 08:11 Room Air Intake and Output 05/01/17 05/01/17 05/02/17 15:00 23:00 07:00 Intake Total 900 ml 400 ml 850 ml Balance 900 ml 400 ml 850 ml Exam Constitutional: alert, oriented, well developed Psych: nl mood/affect, no complaints Head: atraumatic, normocephalic Eyes: EOMI, PERRL, nl conjunctiva, nl lids, nl sclera ENMT: nl external ears & nose, nl lips & teeth, nl nasal mucosa & septum Neck: non-tender, supple Respiratory: clear to auscultation, normal air movement Cardiovascular: nl pulses, regular rate and rhythm Gastrointestinal: nl liver, spleen, non-tender, soft Musculoskeletal: nl extremities to inspection, nl gait and stance Extremities: normal pulses Neurological: WARD NURSE II-XII intact, nl mental status, nl speech, nl strength Skin: nl turgor, No rash or lesions Lymph: nl lymph nodes Results Result Diagram: 05/01/17 0516 05/01/17515 Medications Medications Current Medications Ondansetron HCl (Zofran Inj) 4 mg Q6H PRN IV NAUSEA AND/OR VOMITING Last administered on 04/30/17t 18:49; Admin Dose 4 MG; Start 04/20/17 at 18:00 Acetaminophen (Tylenol Tab) 650 mg Q6H PRN PO PAIN LEVEL 1-3 OR FEVER Last administered on 05/02/17 11:56; Admin Dose 650 MG; Start 04/20/17 at 18:00 Acetaminophen/ Hydrocodone Bitart ([place] (5/325)) 1 tab Q6H PRN PO MODERATE PAIN LEVEL 4-6; Start 04/20/17 at 18:00 Docusate Sodium (Colace) 100 mg Q12H PRN PO CONSTIPATION Last administered on 05/02/17 04:01; Admin Dose 100 MG; Start 04/20/17 at 18:00 Zolpidem Tartrate (Ambien) 5 mg QHS PRN PO SLEEP Last administered on 21:04; Admin Dose 5 MG; Start 04/20/17 at 18:00 Pantoprazole (Protonix Tab) 40 mg DAILY@06 PO Last administered on 05/02/17 06 :34; Admin Dose 40 MG; Start 04/21/17 at 06:00 Hydralazine HCl (Apresoline) 10 mg Q6H PRN IV ELEVATED SYSTOLIC BP Last administered on 04/28/17 01:31; Admin Dose 10 MG; Start 04/28/17 at 00:00 Acetaminophen/ Hydrocodone Bitart ([place] (5/325)) 2 tab Q4H PRN PO Pain 6-10 Last administered on 05/02/17 04:00; Admin Dose 2 TAB; Start 04/30/17 at 14:30 Acetaminophen/ Hydrocodone Bitart ([place] (5/325)) 1 tab Q4H PRN PO Pain 1-5; Start 04/30/17 at 14:30 Hydromorphone HCl (Dilaudid) 0.5 mg Q2H PRN IV Breakthrough PAIN; Start at 14:30 Morphine Sulfate (morphine) 2 mg Q2H PRN IV Breakthrough PAIN Last administered on 05/01/17 06:05; Admin Dose 2 MG; Start 04/30/17 at 14:30 Enoxaparin Sodium (Lovenox) 30 mg DAILY SC Last administered on 05/02/17 10:30 ; Admin Dose 30 MG; Start 05/01/17 at 16:00 CAMILO SLAUGHTER MD May 02, 2017 15:02
--- NOTE | 2017-05-02 18:37 | CONS ---
Date/Time of Note Date/Time of Note DATE: 05/02/17 TIME: 18:34 Assessment/Plan Assessment/Plan Chief Complaint/Hosp Course Severe symptomatic microcytic anemia WITH COLON ADENOCARCINOMA TIBC is elevated suggesting iron deficiency CT abdomen and pelvis shows no significant findings endoscopy noted, SURG EVAL - P, PATH - P Status post 2 unit packed red blood cells iv iron Path C-Proximal ascending colon mass, biopsies: -- Invasive moderately well-differentiated adenocarcinoma. POST SURGERY PLAN- REVIEW FINAL PATH AND PLAN CHEMO IF NEEDED Chronic interstitial lung disease. Post hysterectomy. Problems: Consultation Date/Type/Reason Admit Date/Time Apr 20, 2017 at 12:35 Initial Consult Date 04/21/17 [facility]ation[facility] Referring Provider: CAMILO SLAUGHTER MD 24 HR Interval Summary Free Text/Dictation ALL NOTED NO NEW EVENTS Exam/Review of Systems Vital Signs Vitals Vital Signs Date Time Temp Pulse Resp B/P Pulse Ox O2 Delivery O2 Flow Rate FiO2 05/02/17 14:00 98.0 68 16 109/50 97 05/01/17 08:11 Room Air Intake and Output 05/01/17 05/01/17 05/02/17 15:00 23:00 07:00 Intake Total 900 ml 400 ml 850 ml Balance 900 ml 400 ml 850 ml Exam Constitutional: alert, oriented, well developed Psych: nl mood/affect, no complaints Head: atraumatic, normocephalic Eyes: EOMI, PERRL, nl conjunctiva, nl lids, nl sclera ENMT: nl external ears & nose, nl lips & teeth, nl nasal mucosa & septum Neck: non-tender, supple Respiratory: clear to auscultation, normal air movement Cardiovascular: nl pulses, regular rate and rhythm Gastrointestinal: nl liver, spleen, non-tender, soft Musculoskeletal: nl extremities to inspection, nl gait and stance Extremities: normal pulses Neurological: PAN RECLAIM PROCESSOR II-XII intact, nl mental status, nl speech, nl strength Skin: nl turgor, No rash or lesions Lymph: nl lymph nodes Results Result Diagram: 05/01/1751505/01/17515 Medications Medications Current Medications Ondansetron HCl (Zofran Inj) 4 mg Q6H PRN IV NAUSEA AND/OR VOMITING Last administered on 04/30/17t 18:49; Admin Dose 4 MG; Start 04/20/17 at 18:00 Acetaminophen (Tylenol Tab) 650 mg Q6H PRN PO PAIN LEVEL 1-3 OR FEVER Last administered on 05/02/17 11:56; Admin Dose 650 MG; Start 04/20/17 at 18:00 Acetaminophen/ Hydrocodone Bitart ([place] (5/325)) 1 tab Q6H PRN PO MODERATE PAIN LEVEL 4-6; Start 04/20/17 at 18:00 Docusate Sodium (Colace) 100 mg Q12H PRN PO CONSTIPATION Last administered on 05/02/17 04:01; Admin Dose 100 MG; Start 04/20/17 at 18:00 Zolpidem Tartrate (Ambien) 5 mg QHS PRN PO SLEEP Last administered on 21:04; Admin Dose 5 MG; Start 04/20/17 at 18:00 Pantoprazole (Protonix Tab) 40 mg DAILY@06 PO Last administered on 05/02/17 06 :34; Admin Dose 40 MG; Start 04/21/17 at 06:00 Hydralazine HCl (Apresoline) 10 mg Q6H PRN IV ELEVATED SYSTOLIC BP Last administered on 04/28/17 01:31; Admin Dose 10 MG; Start 04/28/17 at 00:00 Acetaminophen/ Hydrocodone Bitart ([place] (5/325)) 2 tab Q4H PRN PO Pain 6-10 Last administered on 05/02/17 04:00; Admin Dose 2 TAB; Start 04/30/17 at 14:30 Acetaminophen/ Hydrocodone Bitart ([place] (5/325)) 1 tab Q4H PRN PO Pain 1-5; Start 04/30/17 at 14:30 Hydromorphone HCl (Dilaudid) 0.5 mg Q2H PRN IV Breakthrough PAIN; Start at 14:30 Morphine Sulfate (morphine) 2 mg Q2H PRN IV Breakthrough PAIN Last administered on 05/01/17 06:05; Admin Dose 2 MG; Start 04/30/17 at 14:30 Enoxaparin Sodium (Lovenox) 30 mg DAILY SC Last administered on 05/02/17 10:30 ; Admin Dose 30 MG; Start 05/01/17 at 16:00 BRANDY BONILLA MD May 02, 2017 18:37
--- NOTE | 2017-05-02 18:37 | CONS ---
Date/Time of Note Date/Time of Note DATE: 05/02/17 TIME: 18:34 Assessment/Plan Assessment/Plan Chief Complaint/Hosp Course Severe symptomatic microcytic anemia WITH COLON ADENOCARCINOMA TIBC is elevated suggesting iron deficiency CT abdomen and pelvis shows no significant findings endoscopy noted, SURG EVAL - P, PATH - P Status post 2 unit packed red blood cells iv iron Path C-Proximal ascending colon mass, biopsies: -- Invasive moderately well-differentiated adenocarcinoma. POST SURGERY PLAN- REVIEW FINAL PATH AND PLAN CHEMO IF NEEDED Chronic interstitial lung disease. Post hysterectomy. Problems: Consultation Date/Type/Reason Admit Date/Time Apr 20, 2017 at 12:35 Initial Consult Date 04/21/17 [facility] Referring Provider: CAMILO SLAUGHTER MD 24 HR Interval Summary Free Text/Dictation ALL NOTED NO NEW EVENTS Exam/Review of Systems Vital Signs Vitals Vital Signs Date Time Temp Pulse Resp B/P Pulse Ox O2 Delivery O2 Flow Rate FiO2 05/02/17 14:00 98.0 68 16 109/50 97 05/01/17 08:11 Room Air Intake and Output 05/01/17 05/01/17 05/02/17 15:00 23:00 07:00 Intake Total 900 ml 400 ml 850 ml Balance 900 ml 400 ml 850 ml Exam Constitutional: alert, oriented, well developed Psych: nl mood/affect, no complaints Head: atraumatic, normocephalic Eyes: EOMI, PERRL, nl conjunctiva, nl lids, nl sclera ENMT: nl external ears & nose, nl lips & teeth, nl nasal mucosa & septum Neck: non-tender, supple Respiratory: clear to auscultation, normal air movement Cardiovascular: nl pulses, regular rate and rhythm Gastrointestinal: nl liver, spleen, non-tender, soft Musculoskeletal: nl extremities to inspection, nl gait and stance Extremities: normal pulses Neurological: GREEN PLUMBER II-XII intact, nl mental status, nl speech, nl strength Skin: nl turgor, No rash or lesions Lymph: nl lymph nodes Results Result Diagram: 05/01/1751505/01/17515 Medications Medications Current Medications Ondansetron HCl (Zofran Inj) 4 mg Q6H PRN IV NAUSEA AND/OR VOMITING Last administered on 04/30/17t 18:49; Admin Dose 4 MG; Start 04/20/17 at 18:00 Acetaminophen (Tylenol Tab) 650 mg Q6H PRN PO PAIN LEVEL 1-3 OR FEVER Last administered on 05/02/17 11:56; Admin Dose 650 MG; Start 04/20/17 at 18:00 Acetaminophen/ Hydrocodone Bitart ([place] (5/325)) 1 tab Q6H PRN PO MODERATE PAIN LEVEL 4-6; Start 04/20/17 at 18:00 Docusate Sodium (Colace) 100 mg Q12H PRN PO CONSTIPATION Last administered on 05/02/17 04:01; Admin Dose 100 MG; Start 04/20/17 at 18:00 Zolpidem Tartrate (Ambien) 5 mg QHS PRN PO SLEEP Last administered on 21:04; Admin Dose 5 MG; Start 04/20/17 at 18:00 Pantoprazole (Protonix Tab) 40 mg DAILY@06 PO Last administered on 05/02/17 06 :34; Admin Dose 40 MG; Start 04/21/17 at 06:00 Hydralazine HCl (Apresoline) 10 mg Q6H PRN IV ELEVATED SYSTOLIC BP Last administered on 04/28/17 01:31; Admin Dose 10 MG; Start 04/28/17 at 00:00 Acetaminophen/ Hydrocodone Bitart ([place] (5/325)) 2 tab Q4H PRN PO Pain 6-10 Last administered on 05/02/17 04:00; Admin Dose 2 TAB; Start 04/30/17 at 14:30 Acetaminophen/ Hydrocodone Bitart ([place] (5/325)) 1 tab Q4H PRN PO Pain 1-5; Start 04/30/17 at 14:30 Hydromorphone HCl (Dilaudid) 0.5 mg Q2H PRN IV Breakthrough PAIN; Start at 14:30 Morphine Sulfate (morphine) 2 mg Q2H PRN IV Breakthrough PAIN Last administered on 05/01/17 06:05; Admin Dose 2 MG; Start 04/30/17 at 14:30 Enoxaparin Sodium (Lovenox) 30 mg DAILY SC Last administered on 05/02/17 10:30 ; Admin Dose 30 MG; Start 05/01/17 at 16:00 BRANDY BONILLA MD May 02, 2017 18:37
--- NOTE | 2017-05-02 18:37 | CONS ---
Date/Time of Note Date/Time of Note DATE: 05/02/17 TIME: 18:34 Assessment/Plan Assessment/Plan Chief Complaint/Hosp Course Severe symptomatic microcytic anemia WITH COLON ADENOCARCINOMA TIBC is elevated suggesting iron deficiency CT abdomen and pelvis shows no significant findings endoscopy noted, SURG EVAL - P, PATH - P Status post 2 unit packed red blood cells iv iron Path C-Proximal ascending colon mass, biopsies: -- Invasive moderately well-differentiated adenocarcinoma. POST SURGERY PLAN- REVIEW FINAL PATH AND PLAN CHEMO IF NEEDED Chronic interstitial lung disease. Post hysterectomy. Problems: Consultation Date/Type/Reason Admit Date/Time Apr 20, 2017 at 12:35 Initial Consult Date 04/21/17 [facility] Referring Provider: CAMILO SLAUGHTER MD 24 HR Interval Summary Free Text/Dictation ALL NOTED NO NEW EVENTS Exam/Review of Systems Vital Signs Vitals Vital Signs Date Time Temp Pulse Resp B/P Pulse Ox O2 Delivery O2 Flow Rate FiO2 05/02/17 14:00 98.0 68 16 109/50 97 05/01/17 08:11 Room Air Intake and Output 05/01/17 05/01/17 05/02/17 15:00 23:00 07:00 Intake Total 900 ml 400 ml 850 ml Balance 900 ml 400 ml 850 ml Exam Constitutional: alert, oriented, well developed Psych: nl mood/affect, no complaints Head: atraumatic, normocephalic Eyes: EOMI, PERRL, nl conjunctiva, nl lids, nl sclera ENMT: nl external ears & nose, nl lips & teeth, nl nasal mucosa & septum Neck: non-tender, supple Respiratory: clear to auscultation, normal air movement Cardiovascular: nl pulses, regular rate and rhythm Gastrointestinal: nl liver, spleen, non-tender, soft Musculoskeletal: nl extremities to inspection, nl gait and stance Extremities: normal pulses Neurological: HELPER COORDINATOR II-XII intact, nl mental status, nl speech, nl strength Skin: nl turgor, No rash or lesions Lymph: nl lymph nodes Results Result Diagram: 05/01/1751505/01/17515 Medications Medications Current Medications Ondansetron HCl (Zofran Inj) 4 mg Q6H PRN IV NAUSEA AND/OR VOMITING Last administered on 04/30/17t 18:49; Admin Dose 4 MG; Start 04/20/17 at 18:00 Acetaminophen (Tylenol Tab) 650 mg Q6H PRN PO PAIN LEVEL 1-3 OR FEVER Last administered on 05/02/17 11:56; Admin Dose 650 MG; Start 04/20/17 at 18:00 Acetaminophen/ Hydrocodone Bitart ([place] (5/325)) 1 tab Q6H PRN PO MODERATE PAIN LEVEL 4-6; Start 04/20/17 at 18:00 Docusate Sodium (Colace) 100 mg Q12H PRN PO CONSTIPATION Last administered on 05/02/17 04:01; Admin Dose 100 MG; Start 04/20/17 at 18:00 Zolpidem Tartrate (Ambien) 5 mg QHS PRN PO SLEEP Last administered on 21:04; Admin Dose 5 MG; Start 04/20/17 at 18:00 Pantoprazole (Protonix Tab) 40 mg DAILY@06 PO Last administered on 05/02/17 06 :34; Admin Dose 40 MG; Start 04/21/17 at 06:00 Hydralazine HCl (Apresoline) 10 mg Q6H PRN IV ELEVATED SYSTOLIC BP Last administered on 04/28/17 01:31; Admin Dose 10 MG; Start 04/28/17 at 00:00 Acetaminophen/ Hydrocodone Bitart ([place] (5/325)) 2 tab Q4H PRN PO Pain 6-10 Last administered on 05/02/17 04:00; Admin Dose 2 TAB; Start 04/30/17 at 14:30 Acetaminophen/ Hydrocodone Bitart ([place] (5/325)) 1 tab Q4H PRN PO Pain 1-5; Start 04/30/17 at 14:30 Hydromorphone HCl (Dilaudid) 0.5 mg Q2H PRN IV Breakthrough PAIN; Start at 14:30 Morphine Sulfate (morphine) 2 mg Q2H PRN IV Breakthrough PAIN Last administered on 05/01/17 06:05; Admin Dose 2 MG; Start 04/30/17 at 14:30 Enoxaparin Sodium (Lovenox) 30 mg DAILY SC Last administered on 05/02/17 10:30 ; Admin Dose 30 MG; Start 05/01/17 at 16:00 BRANDY BONILLA MD May 02, 2017 18:37
[2017-05-02 20:47] VITALS: BP 152/67; RESP 18
[2017-05-03 02:14] VITALS: BP 144/66; RESP 20
[2017-05-03] MEDS: PANTOPRAZOLE (EC) 40 MG TAB PO SCH (05:46)
[2017-05-03] MEDS: HYDROCODONE/APAP (5/325) TAB PO PRN (05:51)
[2017-05-03 07:59] VITALS: BP 152/59; RESP 18
--- NOTE | 2017-05-03 11:22 | PN ---
Date/Time of Note Date/Time of Note DATE: 05/03/17 TIME: : Assessment/Plan Lines/Catheters IV Catheter Type (from [facility]): Saline Lock [facility] in Place (from [facility]): No Assessment/Plan Chief Complaint/Hosp Course 1. Colon adenocarcinoma: CT: negative for metastatic disease however possible local lymphadenopathy; ONC rec's noted; s/p right colectomy; +bowel function -IS -ambulate -ice pack to abdominal wall -will advance diet to soft -Patient may be discharged per medical team if continues to tolerated diet and no acute changes. To follow up in office in 1-2 weeks 2. Gastritis -Diet and lifestyle optimization -Antacids 3. Esophagitis -Diet and lifestyle optimization -Antacids 4. Hemorrhoids -Dietary and lifestyle optimization 5. Slow GI bleed, multifactorial, secondary to above -Transfuse as needed -As above 6. Anemia secondary to above -As above 7. Recent syncope and weakness secondary to above -Medical and cardiac optimization -As above 8. Leukocytosis: no fevers; likely reactive -trend labs -monitor- repeat cbc today Thank you. Patient seen and examined in collaboration with Dr. Jw Sheppard. Problems: Subjective 24 Hr Interval Summary Feels well. +bowel function. No incisional drainage/discomfort/discoloration. Tolerating diet. Abdominal tenderness improved. No fevers, chills, sob, congested cough, cp, palpitations, soto, dizziness, n/v/d/dysuria. Exam/Review of Systems Vital Signs Vitals Vital Signs Date Time Temp Pulse Resp B/P Pulse Ox O2 Delivery O2 Flow Rate FiO2 05/03/17 07:59 98.6 64 18 152/59 98 05/01/17 08:11 Room Air Intake and Output 05/02/17 05/02/17 05/03/17 15:00 23:00 07:00 Intake Total 820 ml 520 ml Balance 820 ml 520 ml Exam Free Text/Dictation Constitutional: alert, oriented, No distress Psych: nl mood/affect, pleasant Head: atraumatic, normocephalic Eyes: EOMI, PERRL, nl conjunctiva, No icteric ENMT: mucosa pink and moist, nl external ears & nose, nl lips & teeth Neck: non-tender, supple, No jvd Respiratory: normal air movement, No congested cough, No labored breathing Cardiovascular: regular rate and rhythm, No edema Gastrointestinal: min-tender, soft, No distended, No firm, No rebound or guarding; incision sites dry without drainage Musculoskeletal: nl extremities to inspection, No joint tenderness, No range of motion restrictions. Extremities: normal pulses, No calf tenderness, No cyanosis Neurological: nl mental status, nl speech, nl strength Skin: nl turgor, No diaphoresis, No rash or lesions Lymph: nonpalpable lymph nodes Results Result Diagram: 05/01/17 0516 05/01/17 0516 GERALDO SILVA NP May 03, 2017 11:22
[2017-05-03] MEDS: ENOXAPARIN 30 MG/0.3 ML SYG SC SCH (11:24)
[2017-05-03 14:00] VITALS: BP 140/63; RESP 18
--- NOTE | 2017-05-03 15:58 | PN ---
Date/Time of Note Date/Time of Note DATE: 05/03/17 TIME: 15:56 Assessment/Plan VTE Prophylaxis VTE Prophylaxis Intervention: SCD's Lines/Catheters IV [facility] Type [facility] Saline Lock Urinary Cath still in place: No Assessment/Plan Chief Complaint/Hosp Course 1. Colon cancer:s/p hemicolectomy 04/30 Patient clear for DC per surgery, advance diet Further oncologic care as outpatient, surgical pathology pending and will determine need for adjuvant chemotherapy 2. Iron deficiency anemia: Iron supplementation 3. Hypertension: Continue amlodipine 4. Debility and deconditioning Patient does not feel secure to go back home as of yet as she lives in her own Patient may need short-term penitentiary placement Prophylaxis: SCDs Problems: Subjective 24 Hr Interval Summary Gastrointestinal: pain Exam/Review of Systems Vital Signs Vitals Vital Signs Date Time Temp Pulse Resp B/P Pulse Ox O2 Delivery O2 Flow Rate FiO2 05/03/17 14:00 98.7 70 18 140/63 98 05/01/17 08:11 Room Air Intake and Output 05/02/17 05/02/17 05/03/17 15:00 23:00 07:00 Intake Total 820 ml 520 ml Balance 820 ml 520 ml Exam Constitutional: alert, oriented Respiratory: clear to auscultation Cardiovascular: regular rate and rhythm Gastrointestinal: soft, No distended Musculoskeletal: nl extremities to inspection Results Result Diagram: 05/03/17 1201 05/01/17 0516 Results 24 hrs Laboratory Tests Test 05/03/17 12:01 White Blood Count 8.5 # Red Blood Count 4.07 L Hemoglobin 9.0 L Hematocrit 31.4 L Mean Corpuscular Volume 77.1 L Mean Corpuscular Hemoglobin 22.1 L Mean Corpuscular Hemoglobin Concent 28.7 L Red Cell Distribution Width 26.5 H Platelet Count 509 H Mean Platelet Volume 8.9 Neutrophils % 73.5 Lymphocytes % 15.3 Monocytes % 7.1 Eosinophils % 2.7 Basophils % 0.8 Nucleated Red Blood Cells % 0.0 Neutrophils # 6.3 Lymphocytes # 1.3 Monocytes # 0.6 Eosinophils # 0.2 Basophils # 0.1 Nucleated Red Blood Cells # 0.0 Medications Medications Current Medications Ondansetron HCl (Zofran Inj) 4 mg Q6H PRN IV NAUSEA AND/OR VOMITING Last administered on 04/30/17 18:49; Admin Dose 4 MG; Start 04/20/17 at 18:00 Acetaminophen (Tylenol Tab) 650 mg Q6H PRN PO PAIN LEVEL 1-3 OR FEVER Last administered on 05/02/17 11:56; Admin Dose 650 MG; Start 04/20/17 at 18:00 Acetaminophen/ Hydrocodone Bitart ([place] (5/325)) 1 tab Q6H PRN PO MODERATE PAIN LEVEL 4-6 Last administered on 05/03/17 05:51; Admin Dose 1 TAB; Start at 18:00 Docusate Sodium (Colace) 100 mg Q12H PRN PO CONSTIPATION Last administered on 05/02/17 04:01; Admin Dose 100 MG; Start 04/20/17 at 18:00 Zolpidem Tartrate (Ambien) 5 mg QHS PRN PO SLEEP Last administered on 21:04; Admin Dose 5 MG; Start 04/20/17 at 18:00 Pantoprazole (Protonix Tab) 40 mg DAILY@06 PO Last administered on 05/03/17 05 :46; Admin Dose 40 MG; Start 04/21/17 at 06:00 Hydralazine HCl (Apresoline) 10 mg Q6H PRN IV ELEVATED SYSTOLIC BP Last administered on 04/28/17 01:31; Admin Dose 10 MG; Start 04/28/17 at 00:00 Acetaminophen/ Hydrocodone Bitart ([place] (5/325)) 2 tab Q4H PRN PO Pain 6-10 Last administered on 05/02/17 19:02; Admin Dose 2 TAB; Start 04/30/17 at 14:30 Acetaminophen/ Hydrocodone Bitart ([place] (5/325)) 1 tab Q4H PRN PO Pain 1-5; Start 04/30/17 at 14:30 Hydromorphone HCl (Dilaudid) 0.5 mg Q2H PRN IV Breakthrough PAIN; Start at 14:30 Morphine Sulfate (morphine) 2 mg Q2H PRN IV Breakthrough PAIN Last administered on 05/01/17 06:05; Admin Dose 2 MG; Start 04/30/17 at 14:30 Enoxaparin Sodium (Lovenox) 30 mg DAILY SC Last administered on 05/03/17 11:24 ; Admin Dose 30 MG; Start 05/01/17 at 16:00 BAIRON MCKEON May 03, 2017 15:58
--- NOTE | 2017-05-03 15:58 | PN ---
Date/Time of Note Date/Time of Note DATE: 05/03/17 TIME: 15:56 Assessment/Plan VTE Prophylaxis VTE Prophylaxis Intervention: SCD's Lines/Catheters IV [facility] ([facility] Saline Lock Urinary Cath still in place: No Assessment/Plan Chief Complaint/Hosp Course 1. Colon cancer:s/p hemicolectomy 04/30 Patient clear for DC per surgery, advance diet Further oncologic care as outpatient, surgical pathology pending and will determine need for adjuvant chemotherapy 2. Iron deficiency anemia: Iron supplementation 3. Hypertension: Continue amlodipine 4. Debility and deconditioning Patient does not feel secure to go back home as of yet as she lives in her own Patient may need short-term longterm placement Prophylaxis: SCDs Problems: Subjective 24 Hr Interval Summary Gastrointestinal: pain Exam/Review of Systems Vital Signs Vitals Vital Signs Date Time Temp Pulse Resp B/P Pulse Ox O2 Delivery O2 Flow Rate FiO2 05/03/17 14:00 98.7 70 18 140/63 98 05/01/17 08:11 Room Air Intake and Output 05/02/17 05/02/17 05/03/17 15:00 23:00 07:00 Intake Total 820 ml 520 ml Balance 820 ml 520 ml Exam Constitutional: alert, oriented Respiratory: clear to auscultation Cardiovascular: regular rate and rhythm Gastrointestinal: soft, No distended Musculoskeletal: nl extremities to inspection Results Result Diagram: 05/03/17 1201 05/01/17 0516 Results 24 hrs Laboratory Tests Test 05/03/17 12:01 White Blood Count 8.5 # Red Blood Count 4.07 L Hemoglobin 9.0 L Hematocrit 31.4 L Mean Corpuscular Volume 77.1 L Mean Corpuscular Hemoglobin 22.1 L Mean Corpuscular Hemoglobin Concent 28.7 L Red Cell Distribution Width 26.5 H Platelet Count 509 H Mean Platelet Volume 8.9 Neutrophils % 73.5 Lymphocytes % 15.3 Monocytes % 7.1 Eosinophils % 2.7 Basophils % 0.8 Nucleated Red Blood Cells % 0.0 Neutrophils # 6.3 Lymphocytes # 1.3 Monocytes # 0.6 Eosinophils # 0.2 Basophils # 0.1 Nucleated Red Blood Cells # 0.0 Medications Medications Current Medications Ondansetron HCl (Zofran Inj) 4 mg Q6H PRN IV NAUSEA AND/OR VOMITING Last administered on 04/30/17 18:49; Admin Dose 4 MG; Start 04/20/17 at 18:00 Acetaminophen (Tylenol Tab) 650 mg Q6H PRN PO PAIN LEVEL 1-3 OR FEVER Last administered on 05/02/17 11:56; Admin Dose 650 MG; Start 04/20/17 at 18:00 Acetaminophen/ Hydrocodone Bitart ([place] (5/325)) 1 tab Q6H PRN PO MODERATE PAIN LEVEL 4-6 Last administered on 05/03/17 05:51; Admin Dose 1 TAB; Start at 18:00 Docusate Sodium (Colace) 100 mg Q12H PRN PO CONSTIPATION Last administered on 05/02/17 04:01; Admin Dose 100 MG; Start 04/20/17 at 18:00 Zolpidem Tartrate (Ambien) 5 mg QHS PRN PO SLEEP Last administered on 21:04; Admin Dose 5 MG; Start 04/20/17 at 18:00 Pantoprazole (Protonix Tab) 40 mg DAILY@06 PO Last administered on 05/03/17 05 :46; Admin Dose 40 MG; Start 04/21/17 at 06:00 Hydralazine HCl (Apresoline) 10 mg Q6H PRN IV ELEVATED SYSTOLIC BP Last administered on 04/28/17 01:31; Admin Dose 10 MG; Start 04/28/17 at 00:00 Acetaminophen/ Hydrocodone Bitart ([place] (5/325)) 2 tab Q4H PRN PO Pain 6-10 Last administered on 05/02/17 19:02; Admin Dose 2 TAB; Start 04/30/17 at 14:30 Acetaminophen/ Hydrocodone Bitart ([place] (5/325)) 1 tab Q4H PRN PO Pain 1-5; Start 04/30/17 at 14:30 Hydromorphone HCl (Dilaudid) 0.5 mg Q2H PRN IV Breakthrough PAIN; Start at 14:30 Morphine Sulfate (morphine) 2 mg Q2H PRN IV Breakthrough PAIN Last administered on 05/01/17 06:05; Admin Dose 2 MG; Start 04/30/17 at 14:30 Enoxaparin Sodium (Lovenox) 30 mg DAILY SC Last administered on 05/03/17 11:24 ; Admin Dose 30 MG; Start 05/01/17 at 16:00 BAIRON MCKEON May 03, 2017 15:58
--- NOTE | 2017-05-03 15:58 | PN ---
Date/Time of Note Date/Time of Note DATE: 05/03/17 TIME: 15:56 Assessment/Plan VTE Prophylaxis VTE Prophylaxis Intervention: SCD's Lines/Catheters IV [facility] Type [facility] Saline Lock Urinary Cath still in place: No Assessment/Plan Chief Complaint/Hosp Course 1. Colon cancer:s/p hemicolectomy 04/30 Patient clear for DC per surgery, advance diet Further oncologic care as outpatient, surgical pathology pending and will determine need for adjuvant chemotherapy 2. Iron deficiency anemia: Iron supplementation 3. Hypertension: Continue amlodipine 4. Debility and deconditioning Patient does not feel secure to go back home as of yet as she lives in her own Patient may need short-term detention placement Prophylaxis: SCDs Problems: Subjective 24 Hr Interval Summary Gastrointestinal: pain Exam/Review of Systems Vital Signs Vitals Vital Signs Date Time Temp Pulse Resp B/P Pulse Ox O2 Delivery O2 Flow Rate FiO2 05/03/17 14:00 98.7 70 18 140/63 98 05/01/17 08:11 Room Air Intake and Output 05/02/17 05/02/17 05/03/17 15:00 23:00 07:00 Intake Total 820 ml 520 ml Balance 820 ml 520 ml Exam Constitutional: alert, oriented Respiratory: clear to auscultation Cardiovascular: regular rate and rhythm Gastrointestinal: soft, No distended Musculoskeletal: nl extremities to inspection Results Result Diagram: 05/03/17 1201 05/01/17 0516 Results 24 hrs Laboratory Tests Test 05/03/17 12:01 White Blood Count 8.5 # Red Blood Count 4.07 L Hemoglobin 9.0 L Hematocrit 31.4 L Mean Corpuscular Volume 77.1 L Mean Corpuscular Hemoglobin 22.1 L Mean Corpuscular Hemoglobin Concent 28.7 L Red Cell Distribution Width 26.5 H Platelet Count 509 H Mean Platelet Volume 8.9 Neutrophils % 73.5 Lymphocytes % 15.3 Monocytes % 7.1 Eosinophils % 2.7 Basophils % 0.8 Nucleated Red Blood Cells % 0.0 Neutrophils # 6.3 Lymphocytes # 1.3 Monocytes # 0.6 Eosinophils # 0.2 Basophils # 0.1 Nucleated Red Blood Cells # 0.0 Medications Medications Current Medications Ondansetron HCl (Zofran Inj) 4 mg Q6H PRN IV NAUSEA AND/OR VOMITING Last administered on 04/30/17 18:49; Admin Dose 4 MG; Start 04/20/17 at 18:00 Acetaminophen (Tylenol Tab) 650 mg Q6H PRN PO PAIN LEVEL 1-3 OR FEVER Last administered on 05/02/17 11:56; Admin Dose 650 MG; Start 04/20/17 at 18:00 Acetaminophen/ Hydrocodone Bitart ([place] (5/325)) 1 tab Q6H PRN PO MODERATE PAIN LEVEL 4-6 Last administered on 05/03/17 05:51; Admin Dose 1 TAB; Start at 18:00 Docusate Sodium (Colace) 100 mg Q12H PRN PO CONSTIPATION Last administered on 05/02/17 04:01; Admin Dose 100 MG; Start 04/20/17 at 18:00 Zolpidem Tartrate (Ambien) 5 mg QHS PRN PO SLEEP Last administered on 21:04; Admin Dose 5 MG; Start 04/20/17 at 18:00 Pantoprazole (Protonix Tab) 40 mg DAILY@06 PO Last administered on 05/03/17 05 :46; Admin Dose 40 MG; Start 04/21/17 at 06:00 Hydralazine HCl (Apresoline) 10 mg Q6H PRN IV ELEVATED SYSTOLIC BP Last administered on 04/28/17 01:31; Admin Dose 10 MG; Start 04/28/17 at 00:00 Acetaminophen/ Hydrocodone Bitart ([place] (5/325)) 2 tab Q4H PRN PO Pain 6-10 Last administered on 05/02/17 19:02; Admin Dose 2 TAB; Start 04/30/17 at 14:30 Acetaminophen/ Hydrocodone Bitart ([place] (5/325)) 1 tab Q4H PRN PO Pain 1-5; Start 04/30/17 at 14:30 Hydromorphone HCl (Dilaudid) 0.5 mg Q2H PRN IV Breakthrough PAIN; Start at 14:30 Morphine Sulfate (morphine) 2 mg Q2H PRN IV Breakthrough PAIN Last administered on 05/01/17 06:05; Admin Dose 2 MG; Start 04/30/17 at 14:30 Enoxaparin Sodium (Lovenox) 30 mg DAILY SC Last administered on 05/03/17 11:24 ; Admin Dose 30 MG; Start 05/01/17 at 16:00 BAIRON MCKEON May 03, 2017 15:58
[2017-05-03 19:45] VITALS: BP 144/65; RESP 18
--- NOTE | 2017-05-03 22:35 | CONS ---
Date/Time of Note Date/Time of Note DATE: 05/03/17 TIME: 22:35 Assessment/Plan Assessment/Plan Chief Complaint/Hosp Course COLON CANCER , POST RESECTION PATHOLOGIC STAGING (pTNM): pT3 pN0. Path -Proximal ascending colon mass -- Invasive moderately well-differentiated adenocarcinoma. WILL REQUEST MSI TEST ON THE TISSUE Severe symptomatic microcytic anemia TIBC is elevated suggesting iron deficiency CT abdomen and pelvis shows no significant findings endoscopy noted, SURG EVAL - P, PATH - P Status post 2 unit packed red blood cells iv iron Chronic interstitial lung disease. Post hysterectomy. Problems: Consultation Date/Type/Reason Admit Date/Time Apr 20, 2017 at 12:35 Initial Consult Date 04/21/17 Type of Consultation: HEMEON Referring Provider: CAMILO SLAUGHTER MD Exam/Review of Systems Vital Signs Vitals Vital Signs Date Time Temp Pulse Resp B/P Pulse Ox O2 Delivery O2 Flow Rate FiO2 05/03/17 14:00 98.7 70 18 140/63 98 05/01/17 08:11 Room Air Intake and Output 05/02/17 05/02/17 05/03/17 15:00 23:00 07:00 Intake Total 820 ml 520 ml Balance 820 ml 520 ml Results Result Diagram: 05/03/17 1201 05/01/17 0516 Results 24 hrs Laboratory Tests Test 05/03/17 12:01 White Blood Count 8.5 # Red Blood Count 4.07 L Hemoglobin 9.0 L Hematocrit 31.4 L Mean Corpuscular Volume 77.1 L Mean Corpuscular Hemoglobin 22.1 L Mean Corpuscular Hemoglobin Concent 28.7 L Red Cell Distribution Width 26.5 H Platelet Count 509 H Mean Platelet Volume 8.9 Neutrophils % 73.5 Lymphocytes % 15.3 Monocytes % 7.1 Eosinophils % 2.7 Basophils % 0.8 Nucleated Red Blood Cells % 0.0 Neutrophils # 6.3 Lymphocytes # 1.3 Monocytes # 0.6 Eosinophils # 0.2 Basophils # 0.1 Nucleated Red Blood Cells # 0.0 Medications Medications Current Medications Ondansetron HCl (Zofran Inj) 4 mg Q6H PRN IV NAUSEA AND/OR VOMITING Last administered on 04/30/17t 18:49; Admin Dose 4 MG; Start 04/20/17 at 18:00 Acetaminophen (Tylenol Tab) 650 mg Q6H PRN PO PAIN LEVEL 1-3 OR FEVER Last administered on 05/02/17 11:56; Admin Dose 650 MG; Start 04/20/17 at 18:00 Acetaminophen/ Hydrocodone Bitart ([place] (5/325)) 1 tab Q6H PRN PO MODERATE PAIN LEVEL 4-6 Last administered on 05/03/17 05:51; Admin Dose 1 TAB; Start at 18:00 Docusate Sodium (Colace) 100 mg Q12H PRN PO CONSTIPATION Last administered on 05/02/17 04:01; Admin Dose 100 MG; Start 04/20/17 at 18:00 Zolpidem Tartrate (Ambien) 5 mg QHS PRN PO SLEEP Last administered on 21:04; Admin Dose 5 MG; Start 04/20/17 at 18:00 Pantoprazole (Protonix Tab) 40 mg DAILY@06 PO Last administered on 05/03/17 05 :46; Admin Dose 40 MG; Start 04/21/17 at 06:00 Hydralazine HCl (Apresoline) 10 mg Q6H PRN IV ELEVATED SYSTOLIC BP Last administered on 04/28/17 01:31; Admin Dose 10 MG; Start 04/28/17 at 00:00 Acetaminophen/ Hydrocodone Bitart ([place] (5/325)) 2 tab Q4H PRN PO Pain 6-10 Last administered on 05/02/17 19:02; Admin Dose 2 TAB; Start 04/30/17 at 14:30 Acetaminophen/ Hydrocodone Bitart ([place] (5/325)) 1 tab Q4H PRN PO Pain 1-5; Start 04/30/17 at 14:30 Hydromorphone HCl (Dilaudid) 0.5 mg Q2H PRN IV Breakthrough PAIN; Start at 14:30 Morphine Sulfate (morphine) 2 mg Q2H PRN IV Breakthrough PAIN Last administered on 05/01/17 06:05; Admin Dose 2 MG; Start 04/30/17 at 14:30 Enoxaparin Sodium (Lovenox) 30 mg DAILY SC Last administered on 05/03/17 11:24 ; Admin Dose 30 MG; Start 05/01/17 at 16:00 [facility] a non-profit non-sectarian [facility] asset [id number] [facility] [place] [address] ; Lab No: [id number] Date: 04/30/2017 SPECIMEN: Right colon CLINICAL: Colon cancer GROSS EXAMINATION: Received in formalin is a right hemicolectomy measuring 19.0 cm long. The proximal margin stapled and is 3.2 cm in diameter and the distal margin of colon stapled and is 4.5 cm in diameter. The terminal ileum is 4.9 cm long and the cecum and ascending colon are 11.5 cm from the ileocecal valve to distal margin. The serosa is andujar-pink and attached to the cecum is a normal appendix, 5.5 cm long and 0.3 cm in diameter with no visible mucosa sectioning. Opening the terminal ileum reveals a normal, andujar-pink, folded mucosa and the ileocecal valve is unremarkable and andujar-yellow. 1.0 cm distal from the ileocecal valve is a plaque -like tumor that measuring 5.2 x 3.6 cm which is raised 0.5 cm above the surrounding mucosa. The tumor has a granular andujar surface and is 9.0 cm from the distal margin and 5 cm from the proximal margin. Sectioning the tumor reveals a firm andujar surface 0.8 cm thick with penetration into the muscularis to the junction of muscularis and subserosa. There is no gross extension into subserosa or to the serosal surface. The mesenteric margin is 2.7 cm from the tumor and is marked with orange ink. The remaining mucosa and wall are normal without lesions. Sectioning the pericolic adipose tissue reveals multiple andujar-pink lymph nodes that measure from 0.3 to 0.5 cm in greatest dimension. None appear grossly involved by tumor. Representatively sampled in 15 cassettes as follows: 1) shave of the proximal margin; 2) shave of the distal margin of the colon; 3) section of the ileocecal valve with adjacent mucosa; 4) sections of the unremarkable appendix; 5-9) sections of the tumor full thickness with adjacent mucosa; 10) section of distal mucosa and wall; 11) section of the mesenteric margin with orange ink; 12-14) each cassette, multiple separate lymph nodes; 15) a single sectioned lymph node. MICROSCOPIC DIAGNOSIS: Right colon, segmental resection: -- Adenocarcinoma, moderately well-differentiated, with focal mucinous differentiation, ascending colon. -- Size: 5.2 cm maximum diameter. -- No lymphvascular invasion is identified. -- Carcinoma penetrates through the muscularis propria into subserosa, but does not involve the visceral serosal surface. -- Proximal ileal, distal colon and mesenteric margins are well clear of carcinoma. -- Twelve lymph nodes are negative for metastatic carcinoma (0/12). -- Vermiform appendix with complete mucosal atrophy. Continued Next Page ... SYNOPTIC CANCER CASE SUMMARY: SPECIMEN: Terminal ileum, cecum, ascending colon and appendix. PROCEDURE: Right hemicolectomy. TUMOR SITE: Ascending colon. TUMOR SIZE: 5.2 cm in greatest dimension (x 3.6 x 0.8 cm). MACROSCOPIC TUMOR PERFORATION: Not identified. HISTOLOGIC TYPE: Adenocarcinoma with focal mucinous differentiation. HISTOLOGIC GRADE: Low-grade (moderately well-differentiated). Histologic features suggestive of microsatellite instability. Intratumoral lymphocytic response: None. Peritumoral lymphocytic response: None. Tumor subtype and differentiation: Mucinous tumor component present ( approximately 25/30%). MICROSCOPIC TUMOR EXTENSION: Tumor invades through the muscularis propria to microscopically extend into subserosa. Tumor does not extend to the serosal surface. MARGINS: Proximal margin: Uninvolved by invasive carcinoma; tumor is 5.0 cm from the proximal margin. Distal margin: Uninvolved by invasive carcinoma; tumor is 9.0 cm from the distal margin. Mesenteric margin: Uninvolved by invasive carcinoma; tumor is 2.5 cm from the mesenteric margin. LYMPH-VASCULAR INVASION: Not identified. PERINEURAL INVASION: Not identified. TUMOR DEPOSITS: Not identified. PATHOLOGIC STAGING (pTNM): pT3 pN0. Continued Next Page ... LYMPH NODES: Number of lymph nodes examined: 12. Number of lymph nodes involved: 0. ADDITIONAL PATHOLOGIC FINDINGS: Appendix with complete mucosal atrophy. MEG/ARNULFO/db/go Date of Service: 04/30/17; Date Received: 04/30/17 Dictated: 05/03/17; Transcribed: 05/03/17; Sent by Fax: 05/03/17; Reviewed: CASSI GROSS EXAMINATION PERFORMED BY [facility] AT [address] [place] [address], [address], [place] [id number] Gabriel Gonzalez M.D. Pathologist Electronically Signed 05/03/2017 GABRIEL GONZALEZ M.D. 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
--- NOTE | 2017-05-03 22:35 | CONS ---
Date/Time of Note Date/Time of Note DATE: 05/03/17 TIME: 22:35 Assessment/Plan Assessment/Plan Chief Complaint/Hosp Course COLON CANCER , POST RESECTION PATHOLOGIC STAGING (pTNM): pT3 pN0. Path -Proximal ascending colon mass -- Invasive moderately well-differentiated adenocarcinoma. WILL REQUEST MSI TEST ON THE TISSUE Severe symptomatic microcytic anemia TIBC is elevated suggesting iron deficiency CT abdomen and pelvis shows no significant findings endoscopy noted, SURG EVAL - P, PATH - P Status post 2 unit packed red blood cells iv iron Chronic interstitial lung disease. Post hysterectomy. Problems: Consultation Date/Type/Reason Admit Date/Time Apr 20, 2017 at 12:35 Initial Consult Date 04/21/17 Type of Consultation: HEMEON Referring Provider: CAMILO SLAUGHTER MD Exam/Review of Systems Vital Signs Vitals Vital Signs Date Time Temp Pulse Resp B/P Pulse Ox O2 Delivery O2 Flow Rate FiO2 05/03/17 14:00 98.7 70 18 140/63 98 05/01/17 08:11 Room Air Intake and Output 05/02/17 05/02/17 05/03/17 15:00 23:00 07:00 Intake Total 820 ml 520 ml Balance 820 ml 520 ml Results Result Diagram: 05/03/17 1201 05/01/17 0516 Results 24 hrs Laboratory Tests Test 05/03/17 12:01 White Blood Count 8.5 # Red Blood Count 4.07 L Hemoglobin 9.0 L Hematocrit 31.4 L Mean Corpuscular Volume 77.1 L Mean Corpuscular Hemoglobin 22.1 L Mean Corpuscular Hemoglobin Concent 28.7 L Red Cell Distribution Width 26.5 H Platelet Count 509 H Mean Platelet Volume 8.9 Neutrophils % 73.5 Lymphocytes % 15.3 Monocytes % 7.1 Eosinophils % 2.7 Basophils % 0.8 Nucleated Red Blood Cells % 0.0 Neutrophils # 6.3 Lymphocytes # 1.3 Monocytes # 0.6 Eosinophils # 0.2 Basophils # 0.1 Nucleated Red Blood Cells # 0.0 Medications Medications Current Medications Ondansetron HCl (Zofran Inj) 4 mg Q6H PRN IV NAUSEA AND/OR VOMITING Last administered on 04/30/17t 18:49; Admin Dose 4 MG; Start 04/20/17 at 18:00 Acetaminophen (Tylenol Tab) 650 mg Q6H PRN PO PAIN LEVEL 1-3 OR FEVER Last administered on 05/02/17 11:56; Admin Dose 650 MG; Start 04/20/17 at 18:00 Acetaminophen/ Hydrocodone Bitart ([place] (5/325)) 1 tab Q6H PRN PO MODERATE PAIN LEVEL 4-6 Last administered on 05/03/17 05:51; Admin Dose 1 TAB; Start at 18:00 Docusate Sodium (Colace) 100 mg Q12H PRN PO CONSTIPATION Last administered on 05/02/17 04:01; Admin Dose 100 MG; Start 04/20/17 at 18:00 Zolpidem Tartrate (Ambien) 5 mg QHS PRN PO SLEEP Last administered on 21:04; Admin Dose 5 MG; Start 04/20/17 at 18:00 Pantoprazole (Protonix Tab) 40 mg DAILY@06 PO Last administered on 05/03/17 05 :46; Admin Dose 40 MG; Start 04/21/17 at 06:00 Hydralazine HCl (Apresoline) 10 mg Q6H PRN IV ELEVATED SYSTOLIC BP Last administered on 04/28/17 01:31; Admin Dose 10 MG; Start 04/28/17 at 00:00 Acetaminophen/ Hydrocodone Bitart ([place] (5/325)) 2 tab Q4H PRN PO Pain 6-10 Last administered on 05/02/17 19:02; Admin Dose 2 TAB; Start 04/30/17 at 14:30 Acetaminophen/ Hydrocodone Bitart ([place] (5/325)) 1 tab Q4H PRN PO Pain 1-5; Start 04/30/17 at 14:30 Hydromorphone HCl (Dilaudid) 0.5 mg Q2H PRN IV Breakthrough PAIN; Start at 14:30 Morphine Sulfate (morphine) 2 mg Q2H PRN IV Breakthrough PAIN Last administered on 05/01/17 06:05; Admin Dose 2 MG; Start 04/30/17 at 14:30 Enoxaparin Sodium (Lovenox) 30 mg DAILY SC Last administered on 05/03/17 11:24 ; Admin Dose 30 MG; Start 05/01/17 at 16:00 [facility] a non-profit non[facility]sectarian [facility] asset [id number] [facility] [place] [address] ; Lab No: [id number] Date: 04/30/2017 SPECIMEN: Right colon CLINICAL: Colon cancer GROSS EXAMINATION: Received in formalin is a right hemicolectomy measuring 19.0 cm long. The proximal margin stapled and is 3.2 cm in diameter and the distal margin of colon stapled and is 4.5 cm in diameter. The terminal ileum is 4.9 cm long and the cecum and ascending colon are 11.5 cm from the ileocecal valve to distal margin. The serosa is andujar-pink and attached to the cecum is a normal appendix, 5.5 cm long and 0.3 cm in diameter with no visible mucosa sectioning. Opening the terminal ileum reveals a normal, andujar-pink, folded mucosa and the ileocecal valve is unremarkable and andujar-yellow. 1.0 cm distal from the ileocecal valve is a plaque -like tumor that measuring 5.2 x 3.6 cm which is raised 0.5 cm above the surrounding mucosa. The tumor has a granular andujar surface and is 9.0 cm from the distal margin and 5 cm from the proximal margin. Sectioning the tumor reveals a firm andujar surface 0.8 cm thick with penetration into the muscularis to the junction of muscularis and subserosa. There is no gross extension into subserosa or to the serosal surface. The mesenteric margin is 2.7 cm from the tumor and is marked with orange ink. The remaining mucosa and wall are normal without lesions. Sectioning the pericolic adipose tissue reveals multiple andujar-pink lymph nodes that measure from 0.3 to 0.5 cm in greatest dimension. None appear grossly involved by tumor. Representatively sampled in 15 cassettes as follows: 1) shave of the proximal margin; 2) shave of the distal margin of the colon; 3) section of the ileocecal valve with adjacent mucosa; 4) sections of the unremarkable appendix; 5-9) sections of the tumor full thickness with adjacent mucosa; 10) section of distal mucosa and wall; 11) section of the mesenteric margin with orange ink; 12-14) each cassette, multiple separate lymph nodes; 15) a single sectioned lymph node. MICROSCOPIC DIAGNOSIS: Right colon, segmental resection: -- Adenocarcinoma, moderately well-differentiated, with focal mucinous differentiation, ascending colon. -- Size: 5.2 cm maximum diameter. -- No lymphvascular invasion is identified. -- Carcinoma penetrates through the muscularis propria into subserosa, but does not involve the visceral serosal surface. -- Proximal ileal, distal colon and mesenteric margins are well clear of carcinoma. -- Twelve lymph nodes are negative for metastatic carcinoma (0/12). -- Vermiform appendix with complete mucosal atrophy. Continued Next Page ... SYNOPTIC CANCER CASE SUMMARY: SPECIMEN: Terminal ileum, cecum, ascending colon and appendix. PROCEDURE: Right hemicolectomy. TUMOR SITE: Ascending colon. TUMOR SIZE: 5.2 cm in greatest dimension (x 3.6 x 0.8 cm). MACROSCOPIC TUMOR PERFORATION: Not identified. HISTOLOGIC TYPE: Adenocarcinoma with focal mucinous differentiation. HISTOLOGIC GRADE: Low-grade (moderately well-differentiated). Histologic features suggestive of microsatellite instability. Intratumoral lymphocytic response: None. Peritumoral lymphocytic response: None. Tumor subtype and differentiation: Mucinous tumor component present ( approximately 25/30%). MICROSCOPIC TUMOR EXTENSION: Tumor invades through the muscularis propria to microscopically extend into subserosa. Tumor does not extend to the serosal surface. MARGINS: Proximal margin: Uninvolved by invasive carcinoma; tumor is 5.0 cm from the proximal margin. Distal margin: Uninvolved by invasive carcinoma; tumor is 9.0 cm from the distal margin. Mesenteric margin: Uninvolved by invasive carcinoma; tumor is 2.5 cm from the mesenteric margin. LYMPH-VASCULAR INVASION: Not identified. PERINEURAL INVASION: Not identified. TUMOR DEPOSITS: Not identified. PATHOLOGIC STAGING (pTNM): pT3 pN0. Continued Next Page ... LYMPH NODES: Number of lymph nodes examined: 12. Number of lymph nodes involved: 0. ADDITIONAL PATHOLOGIC FINDINGS: Appendix with complete mucosal atrophy. MEG/ARNULFO/db/go Date of Service: 04/30/17; Date Received: 04/30/17 Dictated: 05/03/17; Transcribed: 05/03/17; Sent by Fax: 05/03/17; Reviewed: CASSI GROSS EXAMINATION PERFORMED BY [facility] AT [address] [place] [address], [address], [place] [id number] Gabriel Gonzalez M.D. Pathologist Electronically Signed 05/03/2017 GABRIEL GONZALEZ M.D. 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
--- NOTE | 2017-05-03 22:35 | CONS ---
Date/Time of Note Date/Time of Note DATE: 05/03/17 TIME: 22:35 Assessment/Plan Assessment/Plan Chief Complaint/Hosp Course COLON CANCER , POST RESECTION PATHOLOGIC STAGING (pTNM): pT3 pN0. Path -Proximal ascending colon mass -- Invasive moderately well-differentiated adenocarcinoma. WILL REQUEST MSI TEST ON THE TISSUE Severe symptomatic microcytic anemia TIBC is elevated suggesting iron deficiency CT abdomen and pelvis shows no significant findings endoscopy noted, SURG EVAL - P, PATH - P Status post 2 unit packed red blood cells iv iron Chronic interstitial lung disease. Post hysterectomy. Problems: Consultation Date/Type/Reason Admit Date/Time Apr 20, 2017 at 12:35 Initial Consult Date 04/21/17 Type of Consultation: [facility] Referring Provider: CAMILO SLAUGHTER MD Exam/Review of Systems Vital Signs Vitals Vital Signs Date Time Temp Pulse Resp B/P Pulse Ox O2 Delivery O2 Flow Rate FiO2 05/03/17 14:00 98.7 70 18 140/63 98 05/01/17 08:11 Room Air Intake and Output 05/02/17 05/02/17 05/03/17 15:00 23:00 07:00 Intake Total 820 ml 520 ml Balance 820 ml 520 ml Results Result Diagram: 05/03/17 1201 05/01/17 0516 Results 24 hrs Laboratory Tests Test 05/03/17 12:01 White Blood Count 8.5 # Red Blood Count 4.07 L Hemoglobin 9.0 L Hematocrit 31.4 L Mean Corpuscular Volume 77.1 L Mean Corpuscular Hemoglobin 22.1 L Mean Corpuscular Hemoglobin Concent 28.7 L Red Cell Distribution Width 26.5 H Platelet Count 509 H Mean Platelet Volume 8.9 Neutrophils % 73.5 Lymphocytes % 15.3 Monocytes % 7.1 Eosinophils % 2.7 Basophils % 0.8 Nucleated Red Blood Cells % 0.0 Neutrophils # 6.3 Lymphocytes # 1.3 Monocytes # 0.6 Eosinophils # 0.2 Basophils # 0.1 Nucleated Red Blood Cells # 0.0 Medications Medications Current Medications Ondansetron HCl (Zofran Inj) 4 mg Q6H PRN IV NAUSEA AND/OR VOMITING Last administered on 04/30/17t 18:49; Admin Dose 4 MG; Start 04/20/17 at 18:00 Acetaminophen (Tylenol Tab) 650 mg Q6H PRN PO PAIN LEVEL 1-3 OR FEVER Last administered on 05/02/17 11:56; Admin Dose 650 MG; Start 04/20/17 at 18:00 Acetaminophen/ Hydrocodone Bitart ([place] (5/325)) 1 tab Q6H PRN PO MODERATE PAIN LEVEL 4-6 Last administered on 05/03/17 05:51; Admin Dose 1 TAB; Start at 18:00 Docusate Sodium (Colace) 100 mg Q12H PRN PO CONSTIPATION Last administered on 05/02/17 04:01; Admin Dose 100 MG; Start 04/20/17 at 18:00 Zolpidem Tartrate (Ambien) 5 mg QHS PRN PO SLEEP Last administered on 21:04; Admin Dose 5 MG; Start 04/20/17 at 18:00 Pantoprazole (Protonix Tab) 40 mg DAILY@06 PO Last administered on 05/03/17 05 :46; Admin Dose 40 MG; Start 04/21/17 at 06:00 Hydralazine HCl (Apresoline) 10 mg Q6H PRN IV ELEVATED SYSTOLIC BP Last administered on 04/28/17 01:31; Admin Dose 10 MG; Start 04/28/17 at 00:00 Acetaminophen/ Hydrocodone Bitart ([place] (5/325)) 2 tab Q4H PRN PO Pain 6-10 Last administered on 05/02/17 19:02; Admin Dose 2 TAB; Start 04/30/17 at 14:30 Acetaminophen/ Hydrocodone Bitart ([place] (5/325)) 1 tab Q4H PRN PO Pain 1-5; Start 04/30/17 at 14:30 Hydromorphone HCl (Dilaudid) 0.5 mg Q2H PRN IV Breakthrough PAIN; Start at 14:30 Morphine Sulfate (morphine) 2 mg Q2H PRN IV Breakthrough PAIN Last administered on 05/01/17 06:05; Admin Dose 2 MG; Start 04/30/17 at 14:30 Enoxaparin Sodium (Lovenox) 30 mg DAILY SC Last administered on 05/03/17 11:24 ; Admin Dose 30 MG; Start 05/01/17 at 16:00 [facility] a non-profit non-sectarian [facility] asset [address] [place] [address] ; Lab No: [id number] Date: 04/30/2017 SPECIMEN: Right colon CLINICAL: Colon cancer GROSS EXAMINATION: Received in formalin is a right hemicolectomy measuring 19.0 cm long. The proximal margin stapled and is 3.2 cm in diameter and the distal margin of colon stapled and is 4.5 cm in diameter. The terminal ileum is 4.9 cm long and the cecum and ascending colon are 11.5 cm from the ileocecal valve to distal margin. The serosa is andujar-pink and attached to the cecum is a normal appendix, 5.5 cm long and 0.3 cm in diameter with no visible mucosa sectioning. Opening the terminal ileum reveals a normal, andujar-pink, folded mucosa and the ileocecal valve is unremarkable and andujar-yellow. 1.0 cm distal from the ileocecal valve is a plaque -like tumor that measuring 5.2 x 3.6 cm which is raised 0.5 cm above the surrounding mucosa. The tumor has a granular andujar surface and is 9.0 cm from the distal margin and 5 cm from the proximal margin. Sectioning the tumor reveals a firm andujar surface 0.8 cm thick with penetration into the muscularis to the junction of muscularis and subserosa. There is no gross extension into subserosa or to the serosal surface. The mesenteric margin is 2.7 cm from the tumor and is marked with orange ink. The remaining mucosa and wall are normal without lesions. Sectioning the pericolic adipose tissue reveals multiple andujar-pink lymph nodes that measure from 0.3 to 0.5 cm in greatest dimension. None appear grossly involved by tumor. Representatively sampled in 15 cassettes as follows: 1) shave of the proximal margin; 2) shave of the distal margin of the colon; 3) section of the ileocecal valve with adjacent mucosa; 4) sections of the unremarkable appendix; 5-9) sections of the tumor full thickness with adjacent mucosa; 10) section of distal mucosa and wall; 11) section of the mesenteric margin with orange ink; 12-14) each cassette, multiple separate lymph nodes; 15) a single sectioned lymph node. MICROSCOPIC DIAGNOSIS: Right colon, segmental resection: -- Adenocarcinoma, moderately well-differentiated, with focal mucinous differentiation, ascending colon. -- Size: 5.2 cm maximum diameter. -- No lymphvascular invasion is identified. -- Carcinoma penetrates through the muscularis propria into subserosa, but does not involve the visceral serosal surface. -- Proximal ileal, distal colon and mesenteric margins are well clear of carcinoma. -- Twelve lymph nodes are negative for metastatic carcinoma (0/12). -- Vermiform appendix with complete mucosal atrophy. Continued Next Page ... SYNOPTIC CANCER CASE SUMMARY: SPECIMEN: Terminal ileum, cecum, ascending colon and appendix. PROCEDURE: Right hemicolectomy. TUMOR SITE: Ascending colon. TUMOR SIZE: 5.2 cm in greatest dimension (x 3.6 x 0.8 cm). MACROSCOPIC TUMOR PERFORATION: Not identified. HISTOLOGIC TYPE: Adenocarcinoma with focal mucinous differentiation. HISTOLOGIC GRADE: Low-grade (moderately well-differentiated). Histologic features suggestive of microsatellite instability. Intratumoral lymphocytic response: None. Peritumoral lymphocytic response: None. Tumor subtype and differentiation: Mucinous tumor component present ( approximately 25/30%). MICROSCOPIC TUMOR EXTENSION: Tumor invades through the muscularis propria to microscopically extend into subserosa. Tumor does not extend to the serosal surface. MARGINS: Proximal margin: Uninvolved by invasive carcinoma; tumor is 5.0 cm from the proximal margin. Distal margin: Uninvolved by invasive carcinoma; tumor is 9.0 cm from the distal margin. Mesenteric margin: Uninvolved by invasive carcinoma; tumor is 2.5 cm from the mesenteric margin. LYMPH-VASCULAR INVASION: Not identified. PERINEURAL INVASION: Not identified. TUMOR DEPOSITS: Not identified. PATHOLOGIC STAGING (pTNM): pT3 pN0. Continued Next Page ... LYMPH NODES: Number of lymph nodes examined: 12. Number of lymph nodes involved: 0. ADDITIONAL PATHOLOGIC FINDINGS: Appendix with complete mucosal atrophy. MEG/ARNULFO/db/go Date of Service: 04/30/17; Date Received: 04/30/17 Dictated: 05/03/17; Transcribed: 05/03/17; Sent by Fax: 05/03/17; Reviewed: CASSI GROSS EXAMINATION PERFORMED BY [facility] AT [address] [place] [address], [address], [place] [id number] Gabriel Gonzalez M.D. Pathologist Electronically Signed 05/03/2017 GABRIEL GONZALEZ M.D. 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
[2017-05-04 02:07] VITALS: BP 156/68; RESP 16
[2017-05-04] MEDS: PANTOPRAZOLE (EC) 40 MG TAB PO SCH (06:06)
[2017-05-04 07:47] VITALS: BP 144/63; RESP 17
--- NOTE | 2017-05-04 09:06 | CONS ---
Date/Time of Note Date/Time of Note DATE: 05/04/17 TIME: 09:04 Assessment/Plan Assessment/Plan Chief Complaint/Hosp Course COLON CANCER , POST RESECTION PATHOLOGIC STAGING (pTNM): pT3 pN0. Path -Proximal ascending colon mass -- Invasive moderately well-differentiated adenocarcinoma. MSI TEST ON THE TISSUE- REQUESTED Severe symptomatic microcytic anemia TIBC is elevated suggesting iron deficiency CT abdomen and pelvis shows no significant findings endoscopy noted Status post 2 unit packed red blood cells iv iron Chronic interstitial lung disease. Post hysterectomy. Problems: Consultation Date/Type/Reason Admit Date/Time Apr 20, 2017 at 12:35 Initial Consult Date 04/21/17 [facility] Referring Provider: CAMILO SLAUGHTER MD 24 HR Interval Summary Free Text/Dictation ALL NOTED MSI TEST ORDERED Exam/Review of Systems Vital Signs Vitals Vital Signs Date Time Temp Pulse Resp B/P Pulse Ox O2 Delivery O2 Flow Rate FiO2 05/04/17 07:47 97.9 90 17 144/63 96 05/01/17 08:11 Room Air Intake and Output 05/03/17 05/03/17 05/04/17 15:00 23:00 07:00 Intake Total 420 ml Balance 420 ml Exam Constitutional: alert, oriented, well developed Psych: nl mood/affect, no complaints Head: atraumatic, normocephalic Eyes: EOMI, PERRL, nl conjunctiva, nl lids, nl sclera ENMT: nl external ears & nose, nl lips & teeth, nl nasal mucosa & septum Neck: non-tender, supple Respiratory: clear to auscultation, normal air movement Cardiovascular: nl pulses, regular rate and rhythm Gastrointestinal: nl liver, spleen, non-tender, soft Musculoskeletal: nl extremities to inspection, nl gait and stance Extremities: normal pulses Neurological: MANUFACTURING RECRUITER II-XII intact, nl mental status, nl speech, nl strength Skin: nl turgor, No rash or lesions Lymph: nl lymph nodes Results Result Diagram: 05/04/17 0508 05/01/17 0516 Results 24 hrs Laboratory Tests Test 05/03/17 12:01 05/04/17 05:08 White Blood Count 8.5 # 7.1 Red Blood Count 4.07 L 4.12 L Hemoglobin 9.0 L 9.5 L Hematocrit 31.4 L 32.3 L Mean Corpuscular Volume 77.1 L 78.4 L Mean Corpuscular Hemoglobin 22.1 L 23.1 L Mean Corpuscular Hemoglobin Concent 28.7 L 29.4 L Red Cell Distribution Width 26.5 H 26.3 H Platelet Count 509 H 526 H Mean Platelet Volume 8.9 8.8 Neutrophils % 73.5 68.4 Lymphocytes % 15.3 16.4 Monocytes % 7.1 9.1 Eosinophils % 2.7 4.7 Basophils % 0.8 0.8 Nucleated Red Blood Cells % 0.0 0.0 Neutrophils # 6.3 4.8 Lymphocytes # 1.3 1.2 Monocytes # 0.6 0.6 Eosinophils # 0.2 0.3 Basophils # 0.1 0.1 Nucleated Red Blood Cells # 0.0 0.0 Medications Medications Current Medications Ondansetron HCl (Zofran Inj) 4 mg Q6H PRN IV NAUSEA AND/OR VOMITING Last administered on 04/30/17 18:49; Admin Dose 4 MG; Start 04/20/17 at 18:00 Acetaminophen (Tylenol Tab) 650 mg Q6H PRN PO PAIN LEVEL 1-3 OR FEVER Last administered on 05/02/17 11:56; Admin Dose 650 MG; Start 04/20/17 at 18:00 Acetaminophen/ Hydrocodone Bitart ([place] (5/325)) 1 tab Q6H PRN PO MODERATE PAIN LEVEL 4-6 Last administered on 05/03/17 05:51; Admin Dose 1 TAB; Start at 18:00 Docusate Sodium (Colace) 100 mg Q12H PRN PO CONSTIPATION Last administered on 05/02/17 04:01; Admin Dose 100 MG; Start 04/20/17 at 18:00 Zolpidem Tartrate (Ambien) 5 mg QHS PRN PO SLEEP Last administered on 21:04; Admin Dose 5 MG; Start 04/20/17 at 18:00 Pantoprazole (Protonix Tab) 40 mg DAILY@06 PO Last administered on 05/04/17 06 :06; Admin Dose 40 MG; Start 04/21/17 at 06:00 Hydralazine HCl (Apresoline) 10 mg Q6H PRN IV ELEVATED SYSTOLIC BP Last administered on 04/28/17 01:31; Admin Dose 10 MG; Start 04/28/17 at 00:00 Acetaminophen/ Hydrocodone Bitart ([place] (5/325)) 2 tab Q4H PRN PO Pain 6-10 Last administered on 05/02/17 19:02; Admin Dose 2 TAB; Start 04/30/17 at 14:30 Acetaminophen/ Hydrocodone Bitart ([place] (5/325)) 1 tab Q4H PRN PO Pain 1-5; Start 04/30/17 at 14:30 Hydromorphone HCl (Dilaudid) 0.5 mg Q2H PRN IV Breakthrough PAIN; Start at 14:30 Morphine Sulfate (morphine) 2 mg Q2H PRN IV Breakthrough PAIN Last administered on 05/01/17 06:05; Admin Dose 2 MG; Start 04/30/17 at 14:30 Enoxaparin Sodium (Lovenox) 30 mg DAILY SC Last administered on 05/03/17 11:24 ; Admin Dose 30 MG; Start 05/01/17 at 16:00 BRANDY BONILLA MD May 04, 2017 09:06
--- NOTE | 2017-05-04 09:06 | CONS ---
Date/Time of Note Date/Time of Note DATE: 05/04/17 TIME: 09:04 Assessment/Plan Assessment/Plan Chief Complaint/Hosp Course COLON CANCER , POST RESECTION PATHOLOGIC STAGING (pTNM): pT3 pN0. Path -Proximal ascending colon mass -- Invasive moderately well-differentiated adenocarcinoma. MSI TEST ON THE TISSUE- REQUESTED Severe symptomatic microcytic anemia TIBC is elevated suggesting iron deficiency CT abdomen and pelvis shows no significant findings endoscopy noted Status post 2 unit packed red blood cells iv iron Chronic interstitial lung disease. Post hysterectomy. Problems: Consultation Date/Type/Reason Admit Date/Time Apr 20, 2017 at 12:35 Initial Consult Date 04/21/17 [facility] Referring Provider: CAMILO SLAUGHTER MD 24 HR Interval Summary Free Text/Dictation ALL NOTED MSI TEST ORDERED Exam/Review of Systems Vital Signs Vitals Vital Signs Date Time Temp Pulse Resp B/P Pulse Ox O2 Delivery O2 Flow Rate FiO2 05/04/17 07:47 97.9 90 17 144/63 96 05/01/17 08:11 Room Air Intake and Output 05/03/17 05/03/17 05/04/17 15:00 23:00 07:00 Intake Total 420 ml Balance 420 ml Exam Constitutional: alert, oriented, well developed Psych: nl mood/affect, no complaints Head: atraumatic, normocephalic Eyes: EOMI, PERRL, nl conjunctiva, nl lids, nl sclera ENMT: nl external ears & nose, nl lips & teeth, nl nasal mucosa & septum Neck: non-tender, supple Respiratory: clear to auscultation, normal air movement Cardiovascular: nl pulses, regular rate and rhythm Gastrointestinal: nl liver, spleen, non-tender, soft Musculoskeletal: nl extremities to inspection, nl gait and stance Extremities: normal pulses Neurological: CHAIN SAW DRIVER II-XII intact, nl mental status, nl speech, nl strength Skin: nl turgor, No rash or lesions Lymph: nl lymph nodes Results Result Diagram: 05/04/17 0508 05/01/17 0516 Results 24 hrs Laboratory Tests Test 05/03/17 12:01 05/04/17 05:08 White Blood Count 8.5 # 7.1 Red Blood Count 4.07 L 4.12 L Hemoglobin 9.0 L 9.5 L Hematocrit 31.4 L 32.3 L Mean Corpuscular Volume 77.1 L 78.4 L Mean Corpuscular Hemoglobin 22.1 L 23.1 L Mean Corpuscular Hemoglobin Concent 28.7 L 29.4 L Red Cell Distribution Width 26.5 H 26.3 H Platelet Count 509 H 526 H Mean Platelet Volume 8.9 8.8 Neutrophils % 73.5 68.4 Lymphocytes % 15.3 16.4 Monocytes % 7.1 9.1 Eosinophils % 2.7 4.7 Basophils % 0.8 0.8 Nucleated Red Blood Cells % 0.0 0.0 Neutrophils # 6.3 4.8 Lymphocytes # 1.3 1.2 Monocytes # 0.6 0.6 Eosinophils # 0.2 0.3 Basophils # 0.1 0.1 Nucleated Red Blood Cells # 0.0 0.0 Medications Medications Current Medications Ondansetron HCl (Zofran Inj) 4 mg Q6H PRN IV NAUSEA AND/OR VOMITING Last administered on 04/30/17 18:49; Admin Dose 4 MG; Start 04/20/17 at 18:00 Acetaminophen (Tylenol Tab) 650 mg Q6H PRN PO PAIN LEVEL 1-3 OR FEVER Last administered on 05/02/17 11:56; Admin Dose 650 MG; Start 04/20/17 at 18:00 Acetaminophen/ Hydrocodone Bitart ([place] (5/325)) 1 tab Q6H PRN PO MODERATE PAIN LEVEL 4-6 Last administered on 05/03/17 05:51; Admin Dose 1 TAB; Start at 18:00 Docusate Sodium (Colace) 100 mg Q12H PRN PO CONSTIPATION Last administered on 05/02/17 04:01; Admin Dose 100 MG; Start 04/20/17 at 18:00 Zolpidem Tartrate (Ambien) 5 mg QHS PRN PO SLEEP Last administered on 21:04; Admin Dose 5 MG; Start 04/20/17 at 18:00 Pantoprazole (Protonix Tab) 40 mg DAILY@06 PO Last administered on 05/04/17 06 :06; Admin Dose 40 MG; Start 04/21/17 at 06:00 Hydralazine HCl (Apresoline) 10 mg Q6H PRN IV ELEVATED SYSTOLIC BP Last administered on 04/28/17 01:31; Admin Dose 10 MG; Start 04/28/17 at 00:00 Acetaminophen/ Hydrocodone Bitart ([place] (5/325)) 2 tab Q4H PRN PO Pain 6-10 Last administered on 05/02/17 19:02; Admin Dose 2 TAB; Start 04/30/17 at 14:30 Acetaminophen/ Hydrocodone Bitart ([place] (5/325)) 1 tab Q4H PRN PO Pain 1-5; Start 04/30/17 at 14:30 Hydromorphone HCl (Dilaudid) 0.5 mg Q2H PRN IV Breakthrough PAIN; Start at 14:30 Morphine Sulfate (morphine) 2 mg Q2H PRN IV Breakthrough PAIN Last administered on 05/01/17 06:05; Admin Dose 2 MG; Start 04/30/17 at 14:30 Enoxaparin Sodium (Lovenox) 30 mg DAILY SC Last administered on 05/03/17 11:24 ; Admin Dose 30 MG; Start 05/01/17 at 16:00 BRANDY BONILLA MD May 04, 2017 09:06
--- NOTE | 2017-05-04 09:06 | CONS ---
Date/Time of Note Date/Time of Note DATE: 05/04/17 TIME: 09:04 Assessment/Plan Assessment/Plan Chief Complaint/Hosp Course COLON CANCER , POST RESECTION PATHOLOGIC STAGING (pTNM): pT3 pN0. Path -Proximal ascending colon mass -- Invasive moderately well-differentiated adenocarcinoma. MSI TEST ON THE TISSUE- REQUESTED Severe symptomatic microcytic anemia TIBC is elevated suggesting iron deficiency CT abdomen and pelvis shows no significant findings endoscopy noted Status post 2 unit packed red blood cells iv iron Chronic interstitial lung disease. Post hysterectomy. Problems: Consultation Date/Type/Reason Admit Date/Time Apr 20, 2017 at 12:35 Initial Consult Date 04/21/17 [facility] Referring Provider: CAMILO SLAUGHTER MD 24 HR Interval Summary Free Text/Dictation ALL NOTED MSI TEST ORDERED Exam/Review of Systems Vital Signs Vitals Vital Signs Date Time Temp Pulse Resp B/P Pulse Ox O2 Delivery O2 Flow Rate FiO2 05/04/17 07:47 97.9 90 17 144/63 96 05/01/17 08:11 Room Air Intake and Output 05/03/17 05/03/17 05/04/17 15:00 23:00 07:00 Intake Total 420 ml Balance 420 ml Exam Constitutional: alert, oriented, well developed Psych: nl mood/affect, no complaints Head: atraumatic, normocephalic Eyes: EOMI, PERRL, nl conjunctiva, nl lids, nl sclera ENMT: nl external ears & nose, nl lips & teeth, nl nasal mucosa & septum Neck: non-tender, supple Respiratory: clear to auscultation, normal air movement Cardiovascular: nl pulses, regular rate and rhythm Gastrointestinal: nl liver, spleen, non-tender, soft Musculoskeletal: nl extremities to inspection, nl gait and stance Extremities: normal pulses Neurological: BARRER AND TACKER II-XII intact, nl mental status, nl speech, nl strength Skin: nl turgor, No rash or lesions Lymph: nl lymph nodes Results Result Diagram: 05/04/17 0508 05/01/17 0516 Results 24 hrs Laboratory Tests Test 05/03/17 12:01 05/04/17 05:08 White Blood Count 8.5 # 7.1 Red Blood Count 4.07 L 4.12 L Hemoglobin 9.0 L 9.5 L Hematocrit 31.4 L 32.3 L Mean Corpuscular Volume 77.1 L 78.4 L Mean Corpuscular Hemoglobin 22.1 L 23.1 L Mean Corpuscular Hemoglobin Concent 28.7 L 29.4 L Red Cell Distribution Width 26.5 H 26.3 H Platelet Count 509 H 526 H Mean Platelet Volume 8.9 8.8 Neutrophils % 73.5 68.4 Lymphocytes % 15.3 16.4 Monocytes % 7.1 9.1 Eosinophils % 2.7 4.7 Basophils % 0.8 0.8 Nucleated Red Blood Cells % 0.0 0.0 Neutrophils # 6.3 4.8 Lymphocytes # 1.3 1.2 Monocytes # 0.6 0.6 Eosinophils # 0.2 0.3 Basophils # 0.1 0.1 Nucleated Red Blood Cells # 0.0 0.0 Medications Medications Current Medications Ondansetron HCl (Zofran Inj) 4 mg Q6H PRN IV NAUSEA AND/OR VOMITING Last administered on 04/30/17 18:49; Admin Dose 4 MG; Start 04/20/17 at 18:00 Acetaminophen (Tylenol Tab) 650 mg Q6H PRN PO PAIN LEVEL 1-3 OR FEVER Last administered on 05/02/17 11:56; Admin Dose 650 MG; Start 04/20/17 at 18:00 Acetaminophen/ Hydrocodone Bitart ([place] (5/325)) 1 tab Q6H PRN PO MODERATE PAIN LEVEL 4-6 Last administered on 05/03/17 05:51; Admin Dose 1 TAB; Start at 18:00 Docusate Sodium (Colace) 100 mg Q12H PRN PO CONSTIPATION Last administered on 05/02/17 04:01; Admin Dose 100 MG; Start 04/20/17 at 18:00 Zolpidem Tartrate (Ambien) 5 mg QHS PRN PO SLEEP Last administered on 21:04; Admin Dose 5 MG; Start 04/20/17 at 18:00 Pantoprazole (Protonix Tab) 40 mg DAILY@06 PO Last administered on 05/04/17 06 :06; Admin Dose 40 MG; Start 04/21/17 at 06:00 Hydralazine HCl (Apresoline) 10 mg Q6H PRN IV ELEVATED SYSTOLIC BP Last administered on 04/28/17 01:31; Admin Dose 10 MG; Start 04/28/17 at 00:00 Acetaminophen/ Hydrocodone Bitart ([place] (5/325)) 2 tab Q4H PRN PO Pain 6-10 Last administered on 05/02/17 19:02; Admin Dose 2 TAB; Start 04/30/17 at 14:30 Acetaminophen/ Hydrocodone Bitart ([place] (5/325)) 1 tab Q4H PRN PO Pain 1-5; Start 04/30/17 at 14:30 Hydromorphone HCl (Dilaudid) 0.5 mg Q2H PRN IV Breakthrough PAIN; Start at 14:30 Morphine Sulfate (morphine) 2 mg Q2H PRN IV Breakthrough PAIN Last administered on 05/01/17 06:05; Admin Dose 2 MG; Start 04/30/17 at 14:30 Enoxaparin Sodium (Lovenox) 30 mg DAILY SC Last administered on 05/03/17 11:24 ; Admin Dose 30 MG; Start 05/01/17 at 16:00 BRANDY BONILLA MD May 04, 2017 09:06
[2017-05-04] MEDS: ENOXAPARIN 30 MG/0.3 ML SYG SC SCH (09:30)
--- NOTE | 2017-05-04 12:57 | PN ---
Date/Time of Note Date/Time of Note DATE: 05/04/17 TIME: 12:47 Assessment/Plan Lines/Catheters IV Catheter Type (from [facility]): Saline Lock Aguilar in Place (from [facility]): No Assessment/Plan Chief Complaint/Hosp Course 1. Colon adenocarcinoma: CT: negative for metastatic disease however possible local lymphadenopathy; ONC rec's noted; s/p right colectomy; +bowel function -IS -ambulate -ice pack to abdominal wall -Patient may be discharged per medical team if continues to tolerated diet and no acute changes. To follow up in office in 1-2 weeks. Onc follow up 2. Gastritis -Diet and lifestyle optimization -Antacids 3. Esophagitis -Diet and lifestyle optimization -Antacids 4. Hemorrhoids -Dietary and lifestyle optimization 5. Slow GI bleed, multifactorial, secondary to above -Transfuse as needed -As above 6. Anemia secondary to above -As above 7. Recent syncope and weakness secondary to above -Medical and cardiac optimization -As above 8. Leukocytosis: no fevers; likely reactive -trend labs -monitor- repeat cbc today Thank you. Patient seen and examined in collaboration with Dr. Jw Sheppard. Problems: Subjective 24 Hr Interval Summary Feels well. No c/o pain. +bowel function. Tolerating diet. No fevers, chills, sob, congested cough, cp, palpitations, soto, dizziness, n/v/d/dysuria. Exam/Review of Systems Vital Signs Vitals Vital Signs Date Time Temp Pulse Resp B/P Pulse Ox O2 Delivery O2 Flow Rate FiO2 05/04/17 07:47 97.9 90 17 144/63 96 05/01/17 08:11 Room Air Intake and Output 05/03/17 05/03/17 05/04/17 15:00 23:00 07:00 Intake Total 420 ml Balance 420 ml Exam Free Text/Dictation Constitutional: alert, oriented, No distress Psych: nl mood/affect Head: atraumatic, normocephalic Eyes: EOMI, PERRL, nl conjunctiva, No icteric ENMT: mucosa pink and moist, nl external ears & nose, nl lips & teeth Neck: non-tender, supple, No jvd Respiratory: normal air movement, No congested cough, No labored breathing Cardiovascular: regular rate and rhythm, No edema Gastrointestinal: min-tender, soft, No distended, No firm, No rebound or guarding; incision sites dry without drainage Musculoskeletal: nl extremities to inspection, No joint tenderness, No range of motion restrictions. Extremities: normal pulses, No calf tenderness, No cyanosis Neurological: nl mental status, nl speech, nl strength Skin: nl turgor, No diaphoresis, No rash or lesions Lymph: nonpalpable lymph nodes Results Result Diagram: 05/04/17 0508 05/01/17 0516 GERALDO SILVA NP May 04, 2017 12:57
[2017-05-04 15:14] VITALS: BP 167/77; RESP 18
--- NOTE | 2017-05-04 17:30 | PN ---
Date/Time of Note Date/Time of Note DATE: 05/04/17 TIME: 17:29 Assessment/Plan VTE Prophylaxis VTE Prophylaxis Intervention: SCD's Lines/Catheters IV [facility] Type (from [facility]): Saline Lock Urinary Cath still in place: No Assessment/Plan Chief Complaint/Hosp Course 1. Colon cancer:s/p hemicolectomy 04/30 Patient clear for DC per surgery, advance diet Further oncologic care as outpatient, surgical pathology pending and will determine need for adjuvant chemotherapy 2. Iron deficiency anemia: Iron supplementation 3. Hypertension: Continue amlodipine 4. Debility and deconditioning Plan is for DC home tomorrow with home health Prophylaxis: SCDs Problems: Subjective 24 Hr Interval Summary Constitutional: no complaints Exam/Review of Systems Vital Signs Vitals Vital Signs Date Time Temp Pulse Resp B/P Pulse Ox O2 Delivery O2 Flow Rate FiO2 05/04/17 15:14 98.5 65 18 167/77 97 05/01/17 08:11 Room Air Intake and Output 05/03/17 05/03/17 05/04/17 15:00 23:00 07:00 Intake Total 420 ml Balance 420 ml Exam Constitutional: alert, oriented Respiratory: clear to auscultation Cardiovascular: regular rate and rhythm Gastrointestinal: soft, No distended Musculoskeletal: nl extremities to inspection Results Result Diagram: 05/04/17 0508 05/01/17 0516 Results 24 hrs Laboratory Tests Test 05/04/17 05:08 White Blood Count 7.1 Red Blood Count 4.12 L Hemoglobin 9.5 L Hematocrit 32.3 L Mean Corpuscular Volume 78.4 L Mean Corpuscular Hemoglobin 23.1 L Mean Corpuscular Hemoglobin Concent 29.4 L Red Cell Distribution Width 26.3 H Platelet Count 526 H Mean Platelet Volume 8.8 Neutrophils % 68.4 Lymphocytes % 16.4 Monocytes % 9.1 Eosinophils % 4.7 Basophils % 0.8 Nucleated Red Blood Cells % 0.0 Neutrophils # 4.8 Lymphocytes # 1.2 Monocytes # 0.6 Eosinophils # 0.3 Basophils # 0.1 Nucleated Red Blood Cells # 0.0 Medications Medications Current Medications Ondansetron HCl (Zofran Inj) 4 mg Q6H PRN IV NAUSEA AND/OR VOMITING Last administered on 04/30/17t 18:49; Admin Dose 4 MG; Start 04/20/17 at 18:00 Acetaminophen (Tylenol Tab) 650 mg Q6H PRN PO PAIN LEVEL 1-3 OR FEVER Last administered on 05/02/17 11:56; Admin Dose 650 MG; Start 04/20/17 at 18:00 Acetaminophen/ Hydrocodone Bitart ([place] (5/325)) 1 tab Q6H PRN PO MODERATE PAIN LEVEL 4-6 Last administered on 05/03/17 05:51; Admin Dose 1 TAB; Start at 18:00 Docusate Sodium (Colace) 100 mg Q12H PRN PO CONSTIPATION Last administered on 05/02/17 04:01; Admin Dose 100 MG; Start 04/20/17 at 18:00 Zolpidem Tartrate (Ambien) 5 mg QHS PRN PO SLEEP Last administered on 21:04; Admin Dose 5 MG; Start 04/20/17 at 18:00 Pantoprazole (Protonix Tab) 40 mg DAILY@06 PO Last administered on 05/04/17 06 :06; Admin Dose 40 MG; Start 04/21/17 at 06:00 Hydralazine HCl (Apresoline) 10 mg Q6H PRN IV ELEVATED SYSTOLIC BP Last administered on 04/28/17 01:31; Admin Dose 10 MG; Start 04/28/17 at 00:00 Acetaminophen/ Hydrocodone Bitart ([place] (5/325)) 2 tab Q4H PRN PO Pain 6-10 Last administered on 05/02/17 19:02; Admin Dose 2 TAB; Start 04/30/17 at 14:30 Acetaminophen/ Hydrocodone Bitart ([place] (5/325)) 1 tab Q4H PRN PO Pain 1-5; Start 04/30/17 at 14:30 Hydromorphone HCl (Dilaudid) 0.5 mg Q2H PRN IV Breakthrough PAIN; Start at 14:30 Morphine Sulfate (morphine) 2 mg Q2H PRN IV Breakthrough PAIN Last administered on 05/01/17 06:05; Admin Dose 2 MG; Start 04/30/17 at 14:30 Enoxaparin Sodium (Lovenox) 30 mg DAILY SC Last administered on 05/04/17 09:30 ; Admin Dose 30 MG; Start 05/01/17 at 16:00 BAIRON MCKEON 7, 2017 17:30
[2017-05-04 21:09] VITALS: BP 151/67; RESP 18
[2017-05-05 02:43] VITALS: BP 126/60; RESP 21
[2017-05-05] MEDS: PANTOPRAZOLE (EC) 40 MG TAB PO SCH (05:31)
[2017-05-05 07:21] VITALS: BP 129/74; RESP 18
[2017-05-05] MEDS: HYDROCODONE/APAP (5/325) TAB PO PRN (08:06)
[2017-05-05] MEDS: ENOXAPARIN 30 MG/0.3 ML SYG SC SCH (08:07)
--- NOTE | 2017-05-05 09:27 | PN ---
Date/Time of Note Date/Time of Note DATE: 05/05/17 TIME: 09:25 Assessment/Plan Lines/Catheters IV Catheter Type (from [facility]): Saline Lock [facility] in Place (from [facility]): No Assessment/Plan Chief Complaint/Hosp Course 1. Colon adenocarcinoma: CT: negative for metastatic disease however possible local lymphadenopathy; ONC rec's noted; s/p right colectomy; +bowel function -IS -ambulate -ice pack to abdominal wall -Patient may be discharged per medical team if continues to tolerated diet and no acute changes. To follow up in office in 1-2 weeks. Onc follow up 2. Gastritis -Diet and lifestyle optimization -Antacids 3. Esophagitis -Diet and lifestyle optimization -Antacids 4. Hemorrhoids -Dietary and lifestyle optimization 5. Slow GI bleed, multifactorial, secondary to above -Transfuse as needed -As above 6. Anemia secondary to above -As above Thank you. Patient seen and examined in collaboration with Dr. Jw Sheppard. Problems: Subjective 24 Hr Interval Summary Feels well. Pending discharge today. +bowel function. Pain much improved. No fevers, chills, sob, congested cough, cp, palpitations, soto, dizziness, n/v/d/ dysuria. Exam/Review of Systems Vital Signs Vitals Vital Signs Date Time Temp Pulse Resp B/P Pulse Ox O2 Delivery O2 Flow Rate FiO2 05/05/17 07:21 98.0 79 18 129/74 97 05/01/17 08:11 Room Air Intake and Output 05/04/17 05/04/17 05/05/17 15:00 23:00 07:00 Intake Total 780 ml 620 ml Balance 780 ml 620 ml Exam Free Text/Dictation Constitutional: alert, oriented, No distress Psych: nl mood/affect, pleasant Head: atraumatic, normocephalic Eyes: EOMI, PERRL, nl conjunctiva, No icteric ENMT: mucosa pink and moist, nl external ears & nose, nl lips & teeth Neck: non-tender, supple, No jvd Respiratory: normal air movement, No congested cough, No labored breathing Cardiovascular: regular rate and rhythm, No edema Gastrointestinal: min-tender, soft, No distended, No firm, No rebound or guarding; incision sites dry without drainage Musculoskeletal: nl extremities to inspection, No joint tenderness, No range of motion restrictions. Extremities: normal pulses, No calf tenderness, No cyanosis Neurological: nl mental status, nl speech, nl strength Skin: nl turgor, No diaphoresis, No rash or lesions Lymph: nonpalpable lymph nodes Results Result Diagram: 05/04/17 0508 05/01/17 0516 GERALDO SILVA NP May 05, 2017 09:27
--- NOTE | 2017-05-05 14:07 | CONS ---
Date/Time of Note Date/Time of Note DATE: 05/05/17 TIME: 14:07 Assessment/Plan Assessment/Plan Chief Complaint/Hosp Course COLON CANCER , POST RESECTION PATHOLOGIC STAGING (pTNM): pT3 pN0. Path -Proximal ascending colon mass -- Invasive moderately well-differentiated adenocarcinoma. MSI TEST ON THE TISSUE- REQUESTED Severe symptomatic microcytic anemia TIBC is elevated suggesting iron deficiency CT abdomen and pelvis shows no significant findings endoscopy noted Status post 2 unit packed red blood cells iv iron Chronic interstitial lung disease. Post hysterectomy. Problems: Consultation Date/Type/Reason Admit Date/Time Apr 20, 2017 at 12:35 Initial Consult Date 04/21/17 [facility] Referring Provider: CAMILO SLAUGHTER MD Exam/Review of Systems Vital Signs Vitals Vital Signs Date Time Temp Pulse Resp B/P Pulse Ox O2 Delivery O2 Flow Rate FiO2 05/05/17 07:21 98.0 79 18 129/74 97 05/01/17 08:11 Room Air Intake and Output 05/04/17 05/04/17 05/05/17 15:00 23:00 07:00 Intake Total 780 ml 620 ml Balance 780 ml 620 ml Results Result Diagram: 05/04/17 0508 05/01/17 0516 Medications Medications Current Medications Ondansetron HCl (Zofran Inj) 4 mg Q6H PRN IV NAUSEA AND/OR VOMITING Last administered on 04/30/17 18:49; Admin Dose 4 MG; Start 04/20/17 at 18:00 Acetaminophen (Tylenol Tab) 650 mg Q6H PRN PO PAIN LEVEL 1-3 OR FEVER Last administered on 05/02/17 11:56; Admin Dose 650 MG; Start 04/20/17 at 18:00 Acetaminophen/ Hydrocodone Bitart ([place] (5/325)) 1 tab Q6H PRN PO MODERATE PAIN LEVEL 4-6 Last administered on 05/05/17 08:06; Admin Dose 1 TAB; Start at 18:00 Docusate Sodium (Colace) 100 mg Q12H PRN PO CONSTIPATION Last administered on 05/02/17 04:01; Admin Dose 100 MG; Start 04/20/17 at 18:00 Zolpidem Tartrate (Ambien) 5 mg QHS PRN PO SLEEP Last administered on 21:04; Admin Dose 5 MG; Start 04/20/17 at 18:00 Pantoprazole (Protonix Tab) 40 mg DAILY@06 PO Last administered on 05/05/17 05 :31; Admin Dose 40 MG; Start 04/21/17 at 06:00 Hydralazine HCl (Apresoline) 10 mg Q6H PRN IV ELEVATED SYSTOLIC BP Last administered on 04/28/17 01:31; Admin Dose 10 MG; Start 04/28/17 at 00:00 Acetaminophen/ Hydrocodone Bitart ([place] (5/325)) 2 tab Q4H PRN PO Pain 6-10 Last administered on 05/02/17 19:02; Admin Dose 2 TAB; Start 04/30/17 at 14:30 Acetaminophen/ Hydrocodone Bitart ([place] (5/325)) 1 tab Q4H PRN PO Pain 1-5; Start 04/30/17 at 14:30 Hydromorphone HCl (Dilaudid) 0.5 mg Q2H PRN IV Breakthrough PAIN; Start at 14:30 Morphine Sulfate (morphine) 2 mg Q2H PRN IV Breakthrough PAIN Last administered on 05/01/17 06:05; Admin Dose 2 MG; Start 04/30/17 at 14:30 Enoxaparin Sodium (Lovenox) 30 mg DAILY SC Last administered on 05/05/17 08:07 ; Admin Dose 30 MG; Start 05/01/17 at 16:00 BRANDY BONILLA MD May 05, 2017 14:07
--- NOTE | 2017-05-05 14:07 | CONS ---
Date/Time of Note Date/Time of Note DATE: 05/05/17 TIME: 14:07 Assessment/Plan Assessment/Plan Chief Complaint/Hosp Course COLON CANCER , POST RESECTION PATHOLOGIC STAGING (pTNM): pT3 pN0. Path -Proximal ascending colon mass -- Invasive moderately well-differentiated adenocarcinoma. MSI TEST ON THE TISSUE- REQUESTED Severe symptomatic microcytic anemia TIBC is elevated suggesting iron deficiency CT abdomen and pelvis shows no significant findings endoscopy noted Status post 2 unit packed red blood cells iv iron Chronic interstitial lung disease. Post hysterectomy. Problems: Consultation Date/Type/Reason Admit Date/Time Apr 20, 2017 at 12:35 Initial Consult Date 04/21/17 [facility] Referring Provider: CAMILO SLAUGHTER MD Exam/Review of Systems Vital Signs Vitals Vital Signs Date Time Temp Pulse Resp B/P Pulse Ox O2 Delivery O2 Flow Rate FiO2 05/05/17 07:21 98.0 79 18 129/74 97 05/01/17 08:11 Room Air Intake and Output 05/04/17 05/04/17 05/05/17 15:00 23:00 07:00 Intake Total 780 ml 620 ml Balance 780 ml 620 ml Results Result Diagram: 05/04/17 0508 05/01/17 0516 Medications Medications Current Medications Ondansetron HCl (Zofran Inj) 4 mg Q6H PRN IV NAUSEA AND/OR VOMITING Last administered on 04/30/17 18:49; Admin Dose 4 MG; Start 04/20/17 at 18:00 Acetaminophen (Tylenol Tab) 650 mg Q6H PRN PO PAIN LEVEL 1-3 OR FEVER Last administered on 05/02/17 11:56; Admin Dose 650 MG; Start 04/20/17 at 18:00 Acetaminophen/ Hydrocodone Bitart ([place] (5/325)) 1 tab Q6H PRN PO MODERATE PAIN LEVEL 4-6 Last administered on 05/05/17 08:06; Admin Dose 1 TAB; Start at 18:00 Docusate Sodium (Colace) 100 mg Q12H PRN PO CONSTIPATION Last administered on 05/02/17 04:01; Admin Dose 100 MG; Start 04/20/17 at 18:00 Zolpidem Tartrate (Ambien) 5 mg QHS PRN PO SLEEP Last administered on 21:04; Admin Dose 5 MG; Start 04/20/17 at 18:00 Pantoprazole (Protonix Tab) 40 mg DAILY@06 PO Last administered on 05/05/17 05 :31; Admin Dose 40 MG; Start 04/21/17 at 06:00 Hydralazine HCl (Apresoline) 10 mg Q6H PRN IV ELEVATED SYSTOLIC BP Last administered on 04/28/17 01:31; Admin Dose 10 MG; Start 04/28/17 at 00:00 Acetaminophen/ Hydrocodone Bitart ([place] (5/325)) 2 tab Q4H PRN PO Pain 6-10 Last administered on 05/02/17 19:02; Admin Dose 2 TAB; Start 04/30/17 at 14:30 Acetaminophen/ Hydrocodone Bitart ([place] (5/325)) 1 tab Q4H PRN PO Pain 1-5; Start 04/30/17 at 14:30 Hydromorphone HCl (Dilaudid) 0.5 mg Q2H PRN IV Breakthrough PAIN; Start at 14:30 Morphine Sulfate (morphine) 2 mg Q2H PRN IV Breakthrough PAIN Last administered on 05/01/17 06:05; Admin Dose 2 MG; Start 04/30/17 at 14:30 Enoxaparin Sodium (Lovenox) 30 mg DAILY SC Last administered on 05/05/17 08:07 ; Admin Dose 30 MG; Start 05/01/17 at 16:00 BRANDY BONILLA MD May 05, 2017 14:07
--- NOTE | 2017-05-05 14:07 | CONS ---
Date/Time of Note Date/Time of Note DATE: 05/05/17 TIME: 14:07 Assessment/Plan Assessment/Plan Chief Complaint/Hosp Course COLON CANCER , POST RESECTION PATHOLOGIC STAGING (pTNM): pT3 pN0. Path -Proximal ascending colon mass -- Invasive moderately well-differentiated adenocarcinoma. MSI TEST ON THE TISSUE- REQUESTED Severe symptomatic microcytic anemia TIBC is elevated suggesting iron deficiency CT abdomen and pelvis shows no significant findings endoscopy noted Status post 2 unit packed red blood cells iv iron Chronic interstitial lung disease. Post hysterectomy. Problems: Consultation Date/Type/Reason Admit Date/Time Apr 20, 2017 at 12:35 Initial Consult Date 04/21/17 [facility] Referring Provider: CAMILO SLAUGHTER MD Exam/Review of Systems Vital Signs Vitals Vital Signs Date Time Temp Pulse Resp B/P Pulse Ox O2 Delivery O2 Flow Rate FiO2 05/05/17 07:21 98.0 79 18 129/74 97 05/01/17 08:11 Room Air Intake and Output 05/04/17 05/04/17 05/05/17 15:00 23:00 07:00 Intake Total 780 ml 620 ml Balance 780 ml 620 ml Results Result Diagram: 05/04/17 0508 05/01/17 0516 Medications Medications Current Medications Ondansetron HCl (Zofran Inj) 4 mg Q6H PRN IV NAUSEA AND/OR VOMITING Last administered on 04/30/17 18:49; Admin Dose 4 MG; Start 04/20/17 at 18:00 Acetaminophen (Tylenol Tab) 650 mg Q6H PRN PO PAIN LEVEL 1-3 OR FEVER Last administered on 05/02/17 11:56; Admin Dose 650 MG; Start 04/20/17 at 18:00 Acetaminophen/ Hydrocodone Bitart ([place] (5/325)) 1 tab Q6H PRN PO MODERATE PAIN LEVEL 4-6 Last administered on 05/05/17 08:06; Admin Dose 1 TAB; Start at 18:00 Docusate Sodium (Colace) 100 mg Q12H PRN PO CONSTIPATION Last administered on 05/02/17 04:01; Admin Dose 100 MG; Start 04/20/17 at 18:00 Zolpidem Tartrate (Ambien) 5 mg QHS PRN PO SLEEP Last administered on 21:04; Admin Dose 5 MG; Start 04/20/17 at 18:00 Pantoprazole (Protonix Tab) 40 mg DAILY@06 PO Last administered on 05/05/17 05 :31; Admin Dose 40 MG; Start 04/21/17 at 06:00 Hydralazine HCl (Apresoline) 10 mg Q6H PRN IV ELEVATED SYSTOLIC BP Last administered on 04/28/17 01:31; Admin Dose 10 MG; Start 04/28/17 at 00:00 Acetaminophen/ Hydrocodone Bitart ([place] (5/325)) 2 tab Q4H PRN PO Pain 6-10 Last administered on 05/02/17 19:02; Admin Dose 2 TAB; Start 04/30/17 at 14:30 Acetaminophen/ Hydrocodone Bitart ([place] (5/325)) 1 tab Q4H PRN PO Pain 1-5; Start 04/30/17 at 14:30 Hydromorphone HCl (Dilaudid) 0.5 mg Q2H PRN IV Breakthrough PAIN; Start at 14:30 Morphine Sulfate (morphine) 2 mg Q2H PRN IV Breakthrough PAIN Last administered on 05/01/17 06:05; Admin Dose 2 MG; Start 04/30/17 at 14:30 Enoxaparin Sodium (Lovenox) 30 mg DAILY SC Last administered on 05/05/17 08:07 ; Admin Dose 30 MG; Start 05/01/17 at 16:00 BRANDY BONILLA MD May 05, 2017 14:07
[2017-05-05] MEDS ORDERED: HYDR-3498 PO (15:46)
--- NOTE | 2017-05-05 15:49 | PDOCDIS ---
Discharge Instructions CONDITION Patient Condition: Good HOME CARE INSTRUCTIONS: Diet Instructions: Regular ACTIVITY: Activity Restrictions: No Restrictions FOLLOW UP/APPOINTMENTS Follow-up Plan FOLLOW UP WITH DR IOANA BOURNE OF SURGERY AND DR BRANDY BONILLA OF ONCOLOGY IN 1- 2 WEEKS, F/U WITH YOUR PCP BAIRON MCKEON May 05, 2017 15:49
--- NOTE | 2017-05-09 19:34 | DS ---
Date/Time of Note Date/Time of Note DATE: 05/09/17 TIME: 19:30 Discharge Summary Admission/Discharge Info Admit Date/Time Apr 20, 2017 at 12:35 Discharge Date/Time May 05, 2017 at 17:01 Discharge Diagnosis 1. Colon cancer:s/p hemicolectomy 04/30 Patient clear for DC per surgery Further oncologic care as outpatient, surgical pathology pending and will determine need for adjuvant chemotherapy 2. Iron deficiency anemia: Iron supplementation 3. Hypertension: Continue amlodipine 4. Debility and deconditioning DC home with home health Patient Condition: Good Hospital Course Patient is a 81-year-old female with no significant medical history except for occasional pain in her hips. Patient presents with shortness of breath as well as dizziness and lightheadedness. Patient was found to be severely anemic stool occult was positive for blood. Patient received 2 units of packed red blood cells. Patient was seen by GI and colonoscopy showed mass concern for malignancy, pathology showed adenocarcinoma the patient underwent a hemicolectomy. Patient was being seen by oncology and final surgical pathology was pending and would indicate with the patient would need adjuvant chemotherapy. Patient was clear for DC by both oncology and surgery and home health was arranged for patient by case management. Patient was felt to be stable for DC and on day of discharge patient vitals, labs and physical exam are stable she no further acute complaints and questions were answered. Home Meds Active Scripts Hydrocodone/Acetaminophen ([facility] [place] 5-325 Tablet) 1 Each Tablet, 1 TAB PO Q6H Y for PAIN, #7 TAB Prov:DES PAGE MD 05/07/17 Azithromycin* (Zithromax*) 250 Mg Tablet, 250 MG PO .LidiaPACK DIRECTED, #6 TAB TAKE 500 MG (2 TABS) THE FIRST DAY THEN 250 MG (1 TAB) DAYS 2-5 Prov:DES PAGE MD 05/07/17 Discontinued Scripts Hydrocodone Bit-Acetaminophen (Hydrocodone Bit-APAP) 5-325MG Tablet, 1 TAB PO Q4H Y for Pain 1-5, #40 TAB Prov:BAIRON MCKEON 05/05/17 Follow-up Plan FOLLOW UP WITH DR IOANA BOURNE OF SURGERY AND DR BRANDY BONILLA OF ONCOLOGY IN 1- 2 WEEKS, F/U WITH YOUR PCP Primary Care Provider Care Physician No Primary Time spent on discharge: > 30 minutes BAIRON MCKEON May 09, 2017 19:33
== END 2017-05-05 17:01 | disposition home health service (06) | DRG 330 ==
LOC: E/R 10:01 → MS3 12:35 → MS4 23:10 → PP2 04-27 23:15
PROVIDERS: ADMIT Hospitalist; ATTEND Hospitalist
PROC: 30233N1 Transfusion of Nonautologous Red Blood Cells into Peripheral Vein, Percutaneous Approach (ICD-10-PCS; 2017-04-20)
PROC: 0DB78ZX Excision of Stomach, Pylorus, Via Natural or Artificial Opening Endoscopic, Diagnostic (ICD-10-PCS; 2017-04-23)
PROC: 0DBK8ZX Excision of Ascending Colon, Via Natural or Artificial Opening Endoscopic, Diagnostic (ICD-10-PCS; 2017-04-23)
PROC: 0DTF0ZZ Resection of Right Large Intestine, Open Approach (ICD-10-PCS; principal; 2017-04-30 10:00)
DX: C18.9 Malignant neoplasm of colon, unspecified (principal); K92.2 Gastrointestinal hemorrhage, unspecified; I80.8 Phlebitis and thrombophlebitis of other sites; D50.9 Iron deficiency anemia, unspecified; K29.70 Gastritis, unspecified, without bleeding; K20.9 Esophagitis, unspecified; M25.552 Pain in left hip; M25.551 Pain in right hip; R63.4 Abnormal weight loss; Z68.21 Body mass index [BMI] 21.0-21.9, adult; K64.8 Other hemorrhoids; I10 Essential (primary) hypertension
CPT/HCPCS: 36415; 36430; 71010; 74177; 80048; 80053; 81003; 82105; 82270; 82378; 82550; 82553; 82728; 83036; 83540; 83735; 83880; 84100; 84484; 85025; 85610; 86301; 86304; 86850; 86900; 86901; 86920; 87086; 88305; 88309; 88312; 90686; 93005; 93971; J0360; J0690; J1170; J1200; J1650; J1885; J2175; J2270; J2405; J2795; J2916; J2930; J3010; J3480; J7040; P9016; Q9967

== ENCOUNTER 2017-05-06 23:43 | Emergency (ER) | payer MEDICAID ==
[~2017-05-06] VITALS: Ht 157.5 cm; Wt 68.0 kg
[~2017-05-06 23:43] MED LIST: HYDR-3498 PO
[2017-05-06 23:44] VITALS: Ht 157.5 cm; Wt 68.0 kg
--- NOTE | 2017-05-07 00:01 | ERD ---
ER Documentation Chief Complaint Chief Complaint c/o worsening post surgical pain. Dc'd yesterday post Colon CA surgery. HPI The patient is a 81-year-old female, presenting to the ER because of postoperative pain. She had right colectomy due to colon carcinoma a few days ago and was discharged yesterday with pain medication. She lost the prescription for pain medication. She is here for pain medication. Denies fever , chills, cough, chest pain, dyspnea, vomiting, dysuria, constipation, multiple loose bowel movement today. He does not smoke nor drink Past medical history: Chronic interstitial lung disease, history of colon cancer Past surgical history: Right colectomy, hysterectomy ROS All systems reviewed and are negative except as per history of present illness. Medications Home Meds Active Scripts Hydrocodone/Acetaminophen ([place] 5-325 Tablet) 1 Each Tablet, 1 TAB PO Q6H Y for PAIN, #7 TAB Prov:DES PAGE MD 05/07/17 Azithromycin* (Zithromax*) 250 Mg Tablet, 250 MG PO .ZPACK DIRECTED, #6 TAB TAKE 500 MG (2 TABS) THE FIRST DAY THEN 250 MG (1 TAB) DAYS 2-5 Prov:DES PAGE MD 05/07/17 Hydrocodone Bit-Acetaminophen (Hydrocodone Bit-APAP) 5-325MG Tablet, 1 TAB PO Q4H Y for Pain 1-5, #40 TAB Prov:BAIRON MCKEON 05/05/17 Allergies Allergies: Coded Allergies: No Known Allergy (Unverified , 05/07/17) PMhx/Soc History of Surgery: No Anesthesia Reaction: No Hx Neurological Disorder: No Hx Respiratory Disorders: No Hx Cardiac Disorders: No Hx Psychiatric Problems: No Hx Miscellaneous Medical Probl: No Hx Alcohol Use: No Hx Substance Use: No Hx Tobacco Use: No Physical Exam Vitals Vital Signs Date Time Temp Pulse Resp B/P Pulse Ox O2 Delivery O2 Flow Rate FiO2 05/07/17 03:00 90 20 105/65 100 Room Air 05/07/17 02:00 72 23 117/57 100 Room Air 05/07/17 01:33 98.3 77 18 110/60 100 Room Air 05/07/17 00:05 98.3 82 18 129/111 100 Room Air 05/06/17 23:44 98.3 92 18 158/73 97 Physical Exam Const: No acute distress. Head: Atraumatic. Eyes: Normal Conjunctiva. ENT: Normal External Ears, Nose and Mouth. Neck: Full range of motion. No meningismus. Resp: Clear to auscultation bilaterally. Cardio: Regular rate and rhythm. Abd: Soft, non distended, normal bowel sounds, non tender. Punctured wounds are healing well. Vague and minimal abdominal discomfort. Skin: No petechiae or rashes. Back: No midline or flank tenderness. Ext: No cyanosis, or edema. Neur: Awake and alert. No focal deficit Psych: Normal Mood and Affect. Result Diagram: 05/07/17 0015 05/07/17 0015 Results 24 hrs Laboratory Tests Test 05/07/17 00:15 05/07/17 02:39 White Blood Count 12.910^3/ul Red Blood Count 4.4610^6/ul Hemoglobin 10.5g/dl Hematocrit 35.1% Mean Corpuscular Volume 78.7fl Mean Corpuscular Hemoglobin 23.5pg Mean Corpuscular Hemoglobin Concent 29.9g/dl Red Cell Distribution Width 27.6% Platelet Count 98898^3/UL Mean Platelet Volume 8.6fl Neutrophils % 87.6% Lymphocytes % 8.7% Monocytes % 1.9% Eosinophils % 0.8% Basophils % 0.2% Nucleated Red Blood Cells % 0.0/100WBC Neutrophils # 11.310^3/ul Lymphocytes # 1.110^3/ul Monocytes # 0.310^3/ul Eosinophils # 0.110^3/ul Basophils # 0.010^3/ul Nucleated Red Blood Cells # 0.010^3/ul Sodium Level 143mmol/L Potassium Level 3.3mmol/L Chloride Level 106mmol/L Carbon Dioxide Level 27mmol/L Anion Gap 13 Blood Urea Nitrogen 12mg/dl Creatinine 0.68mg/dl Glucose Level 128mg/dl Calcium Level 9.0mg/dl Total Bilirubin 0.2mg/dl Direct Bilirubin 0.00mg/dl Indirect Bilirubin 0.2mg/dl Aspartate Amino Transf (AST/SGOT) 35IU/L Alanine Aminotransferase (ALT/SGPT) 37IU/L Alkaline Phosphatase 100IU/L Total Protein 7.5g/dl Albumin 3.5g/dl Globulin 4.00g/dl Albumin/Globulin Ratio 0.87 Lipase 150U/L Bedside Urine pH (LAB) 7.0 Bedside Urine Protein (LAB) Negative Bedside Urine Glucose (UA) Negative Bedside Urine Ketones (LAB) 1+ Bedside Urine Blood Negative Bedside Urine Nitrite (LAB) Negative Bedside Urine Leukocyte Esterase (L Negative Current Medications Medications (Trade) Dose Ordered Sig/Jaylen Route PRN Reason Start Time Stop Time Status Last Admin Dose Admin Morphine Sulfate (morphine) 2 mg ONCE STAT IV 05/07/17 00:18 05/07/17 00:21 DC 05/07/17 00:43 Ondansetron HCl (Zofran Inj) 4 mg ONCE STAT IV 05/07/17 00:18 05/07/17 00:21 DC 05/07/17 00:43 Potassium Chloride (Klor-Con 20) 20 meq ONCE STAT PO 05/07/17 01:28 05/07/17 01:29 DC 05/07/17 01:58 Morphine Sulfate (morphine) 2 mg ONCE ONCE IV 05/07/17 02:00 05/07/17 02:01 DC 05/07/17 01:58 Hydromorphone HCl (Dilaudid) 0.5 mg ONCE ONCE IM 05/07/17 03:00 05/07/17 03:01 DC 05/07/17 03:05 Procedures/[place] [address] Radiology Main Line: [phone] DIAGNOSTIC IMAGING REPORT Patient: ALEXANDRE CHIANG : 1935 Age: 81 Sex: F MR #: [id number] DOS: 05/07/17 0000 Ordering MD: DES PAGE MD Location: E/R Room/Bed: PROCEDURE: XR Chest. CLINICAL INDICATION: Cough TECHNIQUE: Single frontal view of the chest. COMPARISON: 04/20/2017. FINDINGS: Cardiomegaly. Atherosclerotic calcifications in the thoracic aorta. Mild left lung base atelectasis versus airspace disease. This appears increased over the interval. The lungs are otherwise clear. No signs of pleural fluid or pneumothorax are seen. The osseous structures and soft tissues are unremarkable. IMPRESSION: 1. Increased mild left lung base atelectasis versus airspace disease. 2. Differential considerations include retrocardiac pneumonia in setting of cough. RPTAT: [facility] Physician Donnie Date Time Electronically viewed and signed by Physician Donnie on 05/07/2017 01:29 RS/ CC: DES PAGE MD MEDICAL MAKING DECISION: The patient is a 81-year-old female, presenting with acute postoperative pain, acute hypokalemia and suspected pneumonia. She was treated with morphine 2 mg IV 2 and Dilaudid 0.5 mg IV 1 for pain and Zofran 4 mg IV for nausea and potassium chloride 20 mEq p.o. for acute hypokalemia with good response The differential diagnoses considered include but are not limited to ileus, cholelithiasis, cholecystitis, cystitis, pancreatitis, hepatitis, gastritis, peptic ulcer disease, gastric ulcer, appendicitis, diverticulitis, cholangitis, choledocholithiasis, partial small bowel obstruction. Departure Diagnosis: Primary Impression: Postoperative pain Additional Impressions: PNA (pneumonia) Hypokalemia Anemia Condition: Good Comments She was discharged with Z-Sal Kumar I discussed the findings with the patient. I advised the patient to follow-up with her physician Dr. Sheppard in about 1-2 days, sooner if needed and return if any concern. Disclaimer: Inadvertent spelling and grammatical errors are likely due to EHR/ dictation software use and do not reflect on the overall quality of patient care. Also, please note that the electronic time recorded on this note does not necessarily reflect the actual time of the patient encounter. DES PAGE MD May 07, 2017 00:01
--- NOTE | 2017-05-07 00:01 | ERD ---
ER Documentation Chief Complaint Chief Complaint c/o worsening post surgical pain. Dc'd yesterday post Colon CA surgery. HPI The patient is a 81-year-old female, presenting to the ER because of postoperative pain. She had right colectomy due to colon carcinoma a few days ago and was discharged yesterday with pain medication. She lost the prescription for pain medication. She is here for pain medication. Denies fever , chills, cough, chest pain, dyspnea, vomiting, dysuria, constipation, multiple loose bowel movement today. He does not smoke nor drink Past medical history: Chronic interstitial lung disease, history of colon cancer Past surgical history: Right colectomy, hysterectomy ROS All systems reviewed and are negative except as per history of present illness. Medications Home Meds Active Scripts Hydrocodone/Acetaminophen ([place] 5-325 Tablet) 1 Each Tablet, 1 TAB PO Q6H Y for PAIN, #7 TAB Prov:DES PAGE MD 05/07/17 Azithromycin* (Zithromax*) 250 Mg Tablet, 250 MG PO .ZPACK DIRECTED, #6 TAB TAKE 500 MG (2 TABS) THE FIRST DAY THEN 250 MG (1 TAB) DAYS 2-5 Prov:DES APGE MD 05/07/17 Hydrocodone Bit-Acetaminophen (Hydrocodone Bit-APAP) 5-325MG Tablet, 1 TAB PO Q4H Y for Pain 1-5, #40 TAB Prov:BAIRON MCKEON 05/05/17 Allergies Allergies: Coded Allergies: No Known Allergy (Unverified , 05/07/17) PMhx/Soc History of Surgery: No Anesthesia Reaction: No Hx Neurological Disorder: No Hx Respiratory Disorders: No Hx Cardiac Disorders: No Hx Psychiatric Problems: No Hx Miscellaneous Medical Probl: No Hx Alcohol Use: No Hx Substance Use: No Hx Tobacco Use: No Physical Exam Vitals Vital Signs Date Time Temp Pulse Resp B/P Pulse Ox O2 Delivery O2 Flow Rate FiO2 05/07/17 03:00 90 20 105/65 100 Room Air 05/07/17 02:00 72 23 117/57 100 Room Air 05/07/17 01:33 98.3 77 18 110/60 100 Room Air 05/07/17 00:05 98.3 82 18 129/111 100 Room Air 05/06/17 23:44 98.3 92 18 158/73 97 Physical Exam Const: No acute distress. Head: Atraumatic. Eyes: Normal Conjunctiva. ENT: Normal External Ears, Nose and Mouth. Neck: Full range of motion. No meningismus. Resp: Clear to auscultation bilaterally. Cardio: Regular rate and rhythm. Abd: Soft, non distended, normal bowel sounds, non tender. Punctured wounds are healing well. Vague and minimal abdominal discomfort. Skin: No petechiae or rashes. Back: No midline or flank tenderness. Ext: No cyanosis, or edema. Neur: Awake and alert. No focal deficit Psych: Normal Mood and Affect. Result Diagram: 05/07/17 0015 05/07/17 0015 Results 24 hrs Laboratory Tests Test 05/07/17 00:15 05/07/17 02:39 White Blood Count 12.910^3/ul Red Blood Count 4.4610^6/ul Hemoglobin 10.5g/dl Hematocrit 35.1% Mean Corpuscular Volume 78.7fl Mean Corpuscular Hemoglobin 23.5pg Mean Corpuscular Hemoglobin Concent 29.9g/dl Red Cell Distribution Width 27.6% Platelet Count 76944^3/UL Mean Platelet Volume 8.6fl Neutrophils % 87.6% Lymphocytes % 8.7% Monocytes % 1.9% Eosinophils % 0.8% Basophils % 0.2% Nucleated Red Blood Cells % 0.0/100WBC Neutrophils # 11.310^3/ul Lymphocytes # 1.110^3/ul Monocytes # 0.310^3/ul Eosinophils # 0.110^3/ul Basophils # 0.010^3/ul Nucleated Red Blood Cells # 0.010^3/ul Sodium Level 143mmol/L Potassium Level 3.3mmol/L Chloride Level 106mmol/L Carbon Dioxide Level 27mmol/L Anion Gap 13 Blood Urea Nitrogen 12mg/dl Creatinine 0.68mg/dl Glucose Level 128mg/dl Calcium Level 9.0mg/dl Total Bilirubin 0.2mg/dl Direct Bilirubin 0.00mg/dl Indirect Bilirubin 0.2mg/dl Aspartate Amino Transf (AST/SGOT) 35IU/L Alanine Aminotransferase (ALT/SGPT) 37IU/L Alkaline Phosphatase 100IU/L Total Protein 7.5g/dl Albumin 3.5g/dl Globulin 4.00g/dl Albumin/Globulin Ratio 0.87 Lipase 150U/L Bedside Urine pH (LAB) 7.0 Bedside Urine Protein (LAB) Negative Bedside Urine Glucose (UA) Negative Bedside Urine Ketones (LAB) 1+ Bedside Urine Blood Negative Bedside Urine Nitrite (LAB) Negative Bedside Urine Leukocyte Esterase (L Negative Current Medications Medications (Trade) Dose Ordered Sig/Jaylen Route PRN Reason Start Time Stop Time Status Last Admin Dose Admin Morphine Sulfate (morphine) 2 mg ONCE STAT IV 05/07/17 00:18 05/07/17 00:21 DC 05/07/17 00:43 Ondansetron HCl (Zofran Inj) 4 mg ONCE STAT IV 05/07/17 00:18 05/07/17 00:21 DC 05/07/17 00:43 Potassium Chloride (Klor-Con 20) 20 meq ONCE STAT PO 05/07/17 01:28 05/07/17 01:29 DC 05/07/17 01:58 Morphine Sulfate (morphine) 2 mg ONCE ONCE IV 05/07/17 02:00 05/07/17 02:01 DC 05/07/17 01:58 Hydromorphone HCl (Dilaudid) 0.5 mg ONCE ONCE IM 05/07/17 03:00 05/07/17 03:01 DC 05/07/17 03:05 Procedures/[place] [address] Radiology Main Line: [phone] DIAGNOSTIC IMAGING REPORT Patient: ALEXANDRE CHIANG : 1935 Age: 81 Sex: F MR #: [id number] DOS: 05/07/17 0000 Ordering MD: DES PAGE MD Location: E/R Room/Bed: PROCEDURE: XR Chest. CLINICAL INDICATION: Cough TECHNIQUE: Single frontal view of the chest. COMPARISON: 04/20/2017. FINDINGS: Cardiomegaly. Atherosclerotic calcifications in the thoracic aorta. Mild left lung base atelectasis versus airspace disease. This appears increased over the interval. The lungs are otherwise clear. No signs of pleural fluid or pneumothorax are seen. The osseous structures and soft tissues are unremarkable. IMPRESSION: 1. Increased mild left lung base atelectasis versus airspace disease. 2. Differential considerations include retrocardiac pneumonia in setting of cough. RPTAT: [facility] Physician Donnie Date Time Electronically viewed and signed by Physician Donnie on 05/07/2017 01:29 RS/ CC: DES PAGE MD MEDICAL MAKING DECISION: The patient is a 81-year-old female, presenting with acute postoperative pain, acute hypokalemia and suspected pneumonia. She was treated with morphine 2 mg IV 2 and Dilaudid 0.5 mg IV 1 for pain and Zofran 4 mg IV for nausea and potassium chloride 20 mEq p.o. for acute hypokalemia with good response The differential diagnoses considered include but are not limited to ileus, cholelithiasis, cholecystitis, cystitis, pancreatitis, hepatitis, gastritis, peptic ulcer disease, gastric ulcer, appendicitis, diverticulitis, cholangitis, choledocholithiasis, partial small bowel obstruction. Departure Diagnosis: Primary Impression: Postoperative pain Additional Impressions: PNA (pneumonia) Hypokalemia Anemia Condition: Good Comments She was discharged with Z-Sal Kumar I discussed the findings with the patient. I advised the patient to follow-up with her physician Dr. Sheppard in about 1-2 days, sooner if needed and return if any concern. Disclaimer: Inadvertent spelling and grammatical errors are likely due to EHR/ dictation software use and do not reflect on the overall quality of patient care. Also, please note that the electronic time recorded on this note does not necessarily reflect the actual time of the patient encounter. DES PAGE MD May 07, 2017 00:01
[2017-05-07] MEDS ORDERED: morphine 2 MG INJ IV STA (00:18)
[2017-05-07] MEDS ORDERED: ONDANSETRON 4 MG INJ IV STA (00:18)
[2017-05-07] MEDS ORDERED: POTASSIUM CHLORIDE (SR) 20 MEQ TAB PO STA (01:28)
--- NOTE | 2017-05-07 01:30 | RADRPT ---
PROCEDURE: XR Chest. CLINICAL INDICATION: Cough TECHNIQUE: Single frontal view of the chest. COMPARISON: 04/20/2017. FINDINGS: Cardiomegaly. Atherosclerotic calcifications in the thoracic aorta. Mild left lung base atelectasis versus airspace disease. This appears increased over the interval. The lungs are otherwise clear. No signs of pleural fluid or pneumothorax are seen. The osseous structures and soft tissues are unrema rkable. IMPRESSION: 1. Increased mild left lung base atelectasis versus airspace disease. 2. Differential considerations include retrocardiac pneumonia in setting of cough. RPTAT: [facility] Physician Donnie Date Time Electronically viewed and signed by Physician Donnie on 05/07/2017 01:29 RS/
[2017-05-07 01:33] VITALS: TEMP 98.3
[2017-05-07] MEDS ORDERED: morphine 2 MG INJ IV ONE (02:00)
[2017-05-07] MEDS ORDERED: HYDR-906 PO (02:52)
[2017-05-07] MEDS ORDERED: AZIT250T94 PO (02:52)
[2017-05-07 03:00] VITALS: BP 105/65; PULSE 90; RESP 20
[2017-05-07] MEDS ORDERED: HYDROmorphONE 0.5 MG/0.5 ML SYG IM ONE (03:00)
== END 2017-05-07 03:29 | disposition home or self-care (01) ==
LOC: E/R 23:43
DX: G89.18 Other acute postprocedural pain (principal); R10.9 Unspecified abdominal pain; J18.9 Pneumonia, unspecified organism; E87.6 Hypokalemia; D64.9 Anemia, unspecified; Z85.038 Personal history of other malignant neoplasm of large intestine
CPT/HCPCS: 36415; 71010; 80053; 81003; 83690; 85025; 96372; 96374; 96375; 96376; J1170; J2270; J2405; Z7502; Z7610

== ENCOUNTER 2017-05-07 19:25 | Inpatient (IN) | payer MEDICAID ==
[~2017-05-07] VITALS: Ht 157.5 cm; Wt 60.5 kg
[~2017-05-07 19:25] MED LIST changes: +AZIT250T94 PO; +HYDR-906 PO
[2017-05-07] MEDS ORDERED: SODIUM CHLORIDE 0.9% 1L BAG IV* STA (19:34)
[2017-05-07] MEDS ORDERED: ACETAMINOPHEN 325 MG TAB PO STA (19:34)
[2017-05-07] MEDS ORDERED: HYDROmorphONE 1 MG/ML SYG IV STA (19:37)
[2017-05-07] MEDS ORDERED: ONDANSETRON 4 MG INJ IV STA (19:37)
[2017-05-07] MEDS ORDERED: IODIXANOL LOCM 100 ML BTL ONE (19:44)
[2017-05-07] MEDS ORDERED: SOD CHLORIDE 0.9% 100 ML ONE (19:44)
[2017-05-07] MEDS ORDERED: CEFTRIAXONE 1 GM/50 ML (PMX) 50 ML IVPB ONE (20:00)
[2017-05-07 20:07] LABS: HEMOGLOBIN 9.4 g/dl (12.0-16.0); LYMPHOCYTES % 3.3 % (15.0-51.0); MEAN CORPUSCULAR HEMOGLOBIN 23.9 pg (29.0-33.0); MEAN CORPUSCULAR HGB CONC 30.3 g/dl (32.0-37.0); MEAN CORPUSCULAR VOLUME 78.7 fl (82.0-101.0); MEAN PLATELET VOLUME 8.5 fl (7.4-10.4); MONOCYTES % 1.9 % (0.0-11.0); NEUTROPHILS % 93.6 % (39.0-77.0); PLATELET COUNT 525 10^3/UL (140-415); RED BLOOD COUNT 3.94 10^6/ul (4.20-5.40); WHITE BLOOD COUNT 20.3 10^3/ul (4.8-10.8)
[2017-05-07 20:08] LABS: ABNORMAL IP MESSAGE 1; BASOPHILS % 0.2 % (0.0-2.0); LYMPHOCYTES # 0.7 10^3/ul (0.8-2.9); MONOCYTE # 0.4 10^3/ul (0.3-0.9); NEUTROPHIL # 18.9 10^3/ul (1.6-7.5)
[2017-05-07 20:10] LABS: POSITIVE DIFF @See below
[2017-05-07 20:20] LABS: INR 1.36; PROTIME 16.8 Sec (12.2-14.2); PT RATIO 1.3
[2017-05-07 20:21] LABS: PARTIAL THROMBOPLASTIN TIME 31.8 Sec (25.0-35.0)
[2017-05-07 20:24] LABS: ALANINE AMINOTRANSFERASE 27 IU/L (13-69); ALBUMIN 3.2 g/dl (3.3-4.9); ALBUMIN/GLOBULIN RATIO 0.96; ALKALINE PHOSPHATASE 77 IU/L (42-121); ANION GAP 13 (8-16); ASPARTATE AMINO TRANSFERASE 19 IU/L (15-46); BILIRUBIN,INDIRECT 0.4 mg/dl (0-1.1); BILIRUBIN,TOTAL 0.4 mg/dl (0.2-1.3); BLOOD UREA NITROGEN 12 mg/dl (7-20); CALCIUM 8.7 mg/dl (8.4-10.2); CARBON DIOXIDE 27 mmol/L (21-31); CHLORIDE 101 mmol/L (97-110); GLUCOSE 123 mg/dl (70-220); POTASSIUM 3.2 mmol/L (3.5-5.1); SODIUM 138 mmol/L (135-144); TOTAL PROTEIN 6.5 g/dl (6.1-8.1)
[2017-05-07] MEDS ORDERED: KETOROLAC 15 MG INJ IV STA (20:31)
--- NOTE | 2017-05-07 20:31 | RADRPT ---
PROCEDURE: XR Chest. CLINICAL INDICATION: Chest pain TECHNIQUE: A frontal view of the chest was performed. COMPARISON: None FINDINGS: Borderline cardiomegaly with bibasilar lung infiltrates are present. Mild congestion is noted. No si gns of pleural fluid or pneumothorax are seen. Osteopenia is present. IMPRESSION: Borderline cardiomegaly, mild vascular congestion, and bibasilar lung infiltrates. RPTAT: QQ .Amara Birch MD, MD Date Time Electronically viewed and signed by .Amara Birch MD, MD on 05/07/2017 20:30 .F/
[2017-05-07 20:35] LABS: TROPONIN-I < 0.012 ng/ml (0.00-0.12)
--- NOTE | 2017-05-07 20:40 | RADRPT ---
PROCEDURE: CT abdomen and pelvis with. contrast. CLINICAL INDICATION: Abdominal pain with concern for perforation. Laparoscopic right partial colect mary 7 days ago. TECHNIQUE: IV contrast enhanced CT examination of the abdomen and pelvis, with axial, sagittal and coronal reformatted images. 100 cc Isovue 300 nonionic IV contrast were employed. Automated dose e xposure control was employed. CTDI: 7.85 mGy and DLP: 442.04 mGy-cm. COMPARISON: CT abdomen and pelvis dated 04/24/2017. FINDINGS: CT abdomen: Changes of pulmonary fibrosis of the lung bases with end-stage honeycombing of bilateral posterior c ostophrenic angles. The heart size is enlarged without pericardial thickening or effusion. Free air scattered throughout the abdomen, principally in the nondependent abdomen and in the right abdomen mesentery. Findings are compatible with perforated bowel. Free air in the right abdomen mese ntery is mild, and is adjacent to surgical changes of right partial colectomy. Free air in the nonde pendent abdomen is greater than expected for post surgical air. There is no evident free fluid in th e abdomen in the region of surgery. Extensive fat inflammatory changes in the right mesentery. No evident pneumatosis intestinalis or portal venous gas. Nonspecific mild small bowel ileus. The liver is normal in size and density without focal mass or intrahepatic biliary dilatation. The spleen is normal in size and homogeneous in density. The stomach is partially collapsed, but is rae ssly unremarkable. The pancreas as visualized is normal. The gallbladder demonstrates gallbladder wall thickening versus pericholecystic fluid, and consider ultrasound correlation. The biliary tree is unremarkable and there is no evidence for biliary dilatation. The adrenal glands are symmetric a nd normal. The kidneys are symmetrically unremarkable as well. No renal calculus or obstructive uro antolin or mass lesion is seen. The aorta is of normal caliber. Aortic vascular calcifications are present. There is no retroperit santos lymphadenopathy. The matthew hepatis region is clear. CT pelvis: Mild non dependent free air, and mild free fluid in the pelvis. The small bowel loops situated within the pelvis are unremarkable. The pelvic organs are normal. T he pelvic sidewalls and inguinal regions are clear. The sigmoid colon and rectum are all unremarkab le. No evident mass or adenopathy. No acute inflammation is seen. The appendix is not visualized . The surrounding osseous structures are remarkable for mild degenerative spondylosis of the spine. N o osteolytic or osteoblastic lesion is detected. IMPRESSION: 1. There is free air in the upper abdomen, greater than expected for 7-day post laparoscopic surgic al air. 2. Scattered air in the mesentery adjacent to region of right hemicolectomy surgery, concerning for an anastomotic leak. 3. There is no evident free fluid in the region of concern for anastomotic leak, although there is m ild free fluid in the pelvis. 4. Pulmonary fibrosis at the lung bases with in-stent honeycombing seen at the bilateral posterior c ostophrenic angles. 5. Gallbladder wall thickening versus pericholecystic fluid. 8. Nonspecific mild small bowel ileus. These findings and impression regarding bowel perforation were discussed with Dr. Wilson of the [facility] emergency department at the conclusion of this examination by the unders igned interpreting radiologist on 05/07/2017 at 2028 hours. RPTAT: UU Physician Donnie Date Time Electronically viewed and signed by Physician Donnie on 05/07/2017 20:40 RS/
[2017-05-07] MEDS ORDERED: SOD CHLORIDE 0.9% 1,000 ML IV ONE ×2 (21:00)
[2017-05-07] MEDS ORDERED: metroNIDAZOLE 500 MG/NS (PMX) 100 ML IVPB ONE (21:00)
[2017-05-07 21:28] VITALS: TEMP 99.4
[2017-05-07 21:38] LABS: ADD UMIC NO; UR ASCORBIC ACID NEGATIVE (NEGATIVE); UR BILIRUBIN (Dip) NEGATIVE (NEGATIVE); UR BLOOD (Dip) NEGATIVE (NEGATIVE); UR CLARITY CLEAR (CLEAR); UR COLOR YELLOW (YELLOW); UR GLUCOSE (Dip) NEGATIVE (NEGATIVE); UR KETONES (Dip) NEGATIVE (NEGATIVE); UR LEUKOCYTE ESTERASE (Dip) NEGATIVE Leu/ul (NEGATIVE); UR NITRITE (Dip) NEGATIVE (NEGATIVE); UR SPECIFIC GRAVITY (Dip) 1.059 (1.003-1.030); UR TOTAL PROTEIN (Dip) NEGATIVE (NEGATIVE); UR UROBILINOGEN (Dip) NEGATIVE (NEGATIVE)
[2017-05-07] MEDS ORDERED: ONDANSETRON 4 MG INJ IV PRN (22:30)
[2017-05-07] MEDS ORDERED: VANCOMYCIN IV PER PHARMACY XX SCH (22:30)
--- NOTE | 2017-05-07 22:42 | ERD ---
ER Documentation Chief Complaint Chief Complaint AP all day, rx from this am here not helping, now w/ fever. post colen sx HPI 81-year-old woman brought in by EMS from home for continued abdominal pain. She is status post laparoscopic colectomy 7 days ago. She was seen and evaluated about a day ago here in the emergency department for postoperative pain, and found to have a possible pneumonia on x-ray and discharged with a prescription for azithromycin. Her workup in the ED was otherwise unremarkable yesterday. Patient states she had some loose stool yesterday but denies blood per rectum or melena, no vomiting, no chest pain or shortness of breath. Patient was transported here with complaints of abdominal pain ROS All systems reviewed and are negative except as per history of present illness. Medications Home Meds Active Scripts Hydrocodone/Acetaminophen ([place] 5-325 Tablet) 1 Each Tablet, 1 TAB PO Q6H Y for PAIN, #7 TAB Prov:DES PAGE MD 05/07/17 Azithromycin* (Zithromax*) 250 Mg Tablet, 250 MG PO .ZPACK DIRECTED, #6 TAB TAKE 500 MG (2 TABS) THE FIRST DAY THEN 250 MG (1 TAB) DAYS 2-5 Prov:DES PAGE MD 05/07/17 Hydrocodone Bit-Acetaminophen (Hydrocodone Bit-APAP) 5-325MG Tablet, 1 TAB PO Q4H Y for Pain 1-5, #40 TAB Prov:BAIRON MCKEON 05/05/17 Allergies Allergies: Coded Allergies: No Known Allergy (Unverified , 05/07/17) PMhx/Soc Hypertension, laparoscopic right colectomy a week ago History of Surgery: Yes (COLON) Anesthesia Reaction: No Hx Neurological Disorder: No Hx Respiratory Disorders: No Hx Cardiac Disorders: Yes (HTN) Hx Psychiatric Problems: No Hx Miscellaneous Medical Probl: No ( malignant mass proximal ascending colon) Hx Alcohol Use: No Hx Substance Use: No Hx Tobacco Use: No Smoking Status: Never smoker FmHx Family History: No diabetes Physical Exam Vitals Vital Signs Date Time Temp Pulse Resp B/P Pulse Ox O2 Delivery O2 Flow Rate FiO2 05/07/17 20:44 99 Nasal Cannula 3.0 05/07/17 20:30 80 28 113/57 90 Room Air 05/07/17 20:00 100.4 84 22 140/62 94 Room Air 05/07/17 20:00 Nasal Cannula 2 05/07/17 19:30 101.0 84 24 140/69 95 Physical Exam GENERAL: Well-developed, well-nourished elderly woman, febrile, in moderate discomfort HEENT: Moist mucous membranes, pink conjunctiva, no cervical spine tenderness or step-off deformities, no goiter, no jaundice or icterus, extraocular movements intact without pain. No submandibular induration, and no pharyngeal erythema NEURO: Alert and oriented 3, cranial nerves II through XII intact bilaterally, pupils equal round reactive to light, no focal deficits or facial asymmetry, sensation intact distally Strength 5/5 in upper and lower extremities bilaterally CARDIAC: Tachycardic and regular, no murmurs rubs or gallops LUNGS: Clear bilaterally no wheezing crackles or stridor ABDOMEN: Firm, tender abdomen, rigid diffusely. Laparoscopic sites appear clean and dry. SKIN: Hot and dry to touch, no abrasions, contusions, or hematomas, no lacerations, no ecchymosis, no target lesions, and without ulcers EXTREMITIES: No clubbing cyanosis or edema, calves are bilaterally symmetrical, no Homans sign, no popliteal cord sign. Distal pulses equal and bilateral PSYCH: Normal affect without agitation or irritability Result Diagram: 05/07/17194205/07/171942 Results 24 hrs Laboratory Tests Test 05/07/17 19:43 White Blood Count 20.310^3/ul Red Blood Count 3.9410^6/ul Hemoglobin 9.4g/dl Hematocrit 31.0% Mean Corpuscular Volume 78.7fl Mean Corpuscular Hemoglobin 23.9pg Mean Corpuscular Hemoglobin Concent 30.3g/dl Red Cell Distribution Width 28.0% Platelet Count 42211^3/UL Mean Platelet Volume 8.5fl Neutrophils % 93.6% Lymphocytes % 3.3% Monocytes % 1.9% Eosinophils % 0.0% Basophils % 0.2% Nucleated Red Blood Cells % 0.0/100WBC Neutrophils # 18.910^3/ul Lymphocytes # 0.710^3/ul Monocytes # 0.410^3/ul Eosinophils # 0.010^3/ul Basophils # 0.010^3/ul Nucleated Red Blood Cells # 0.010^3/ul Prothrombin Time 16.8Sec Prothrombin Time Ratio 1.3 INR International Normalized Ratio 1.36 Activated Partial Thromboplast Time 31.8Sec Sodium Level 138mmol/L Potassium Level 3.2mmol/L Chloride Level 101mmol/L Carbon Dioxide Level 27mmol/L Anion Gap 13 Blood Urea Nitrogen 12mg/dl Creatinine 0.70mg/dl Glucose Level 123mg/dl Lactic Acid Level 1.7mmol/L Calcium Level 8.7mg/dl Total Bilirubin 0.4mg/dl Direct Bilirubin 0.00mg/dl Indirect Bilirubin 0.4mg/dl Aspartate Amino Transf (AST/SGOT) 19IU/L Alanine Aminotransferase (ALT/SGPT) 27IU/L Alkaline Phosphatase 77IU/L Troponin I < 0.012ng/ml Total Protein 6.5g/dl Albumin 3.2g/dl Globulin 3.30g/dl Albumin/Globulin Ratio 0.96 Lipase 35U/L Current Medications Medications (Trade) Dose Ordered Sig/Jaylen Route PRN Reason Start Time Stop Time Status Last Admin Dose Admin Sodium Chloride (NS) 2,000 ml BOLUS OVER 2 HOURS STAT IV* 05/07/17 19:34 05/07/17 19:36 DC 05/07/17 19:47 Acetaminophen 650 mg 650 mg ONCE STAT PO 05/07/17 19:34 05/07/17 19:36 DC 05/07/17 20:00 Ceftriaxone Sodium (Rocephin) 50 ml @ 100 mls/hr ONCE ONCE IVPB 05/07/17 20:00 05/07/17 20:29 DC 05/07/17 20:31 Hydromorphone HCl (Dilaudid) 1 mg ONCE STAT IV 05/07/17 19:37 05/07/17 19:39 DC 05/07/17 19:47 Ondansetron HCl (Zofran Inj) 4 mg ONCE STAT IV 05/07/17 19:37 05/07/17 19:39 DC 05/07/17 19:47 IV Flush 10 ml 10 ml STK-MED ONCE .ROUTE 05/07/17 19:44 05/07/17 19:45 DC 05/07/17 20:03 Sodium Chloride (NS) 100 ml @ ud STK-MED ONCE .ROUTE 05/07/17 19:44 05/07/17 19:45 DC 05/07/17 20:03 Iodixanol (Visipaque Locm) 100 ml STK-MED ONCE .ROUTE 05/07/17 19:44 05/07/17 19:45 DC 05/07/17 20:03 Ketorolac Tromethamine (Toradol) 15 mg ONCE STAT IV 05/07/17 20:31 05/07/17 20:32 DC 05/07/17 20:39 Procedures/MDM IV line was established patient was placed on monitoring specialist rhythm strip revealed a sinus tachycardia at 110 bpm with upright P and T waves. Patient was febrile. Blood and urine cultures were ordered results are pending I will follow-up. I administered 1 L normal saline intravenously, hydromorphone 1 mg IV, Zofran 4 mg IV, later followed by Toradol 15 mg IV for continued abdominal pain. Patient was given acetaminophen 650 mg p.o. for fever. I do not suspect sepsis. Immediate CT scan of the abdomen and pelvis with IV contrast was performed: IMPRESSION: 1. There is free air in the upper abdomen, greater than expected for 7-day post laparoscopic surgical air. 2. Scattered air in the mesentery adjacent to region of right hemicolectomy surgery, concerning for an anastomotic leak. 3. There is no evident free fluid in the region of concern for anastomotic leak , although there is mild free fluid in the pelvis. 4. Pulmonary fibrosis at the lung bases with in-stent honeycombing seen at the bilateral posterior costophrenic angles. 5. Gallbladder wall thickening versus pericholecystic fluid. 8. Nonspecific mild small bowel ileus. One AP view of the chest performed, read by me reveals no acute infiltrates, normal mediastinum, sharp costophrenic and cardiac borders, no air under the diaphragm. Otherwise unremarkable chest x-ray. I administered ceftriaxone 1 g IV and metronidazole 500 mg IV. I also ordered another 2 L normal saline intravenously. CBC revealed a leukocytosis at 20, electrolytes reveal mild hypokalemia 3.2, liver function tests normal, troponin negative, lactic acid low at 1.7. Urine analysis negative for infection. I obtained immediate consultation with the patient's surgeon Dr. Sheppard. We discussed the patient's presentation, symptomatology, ED workup, and CT scan findings. He has agreed to evaluate the patient at the bedside and will be coming in shortly, patient will be kept n.p.o. for possible emergent operative intervention. Critical Care: Time: 35 minutes, this was time separate from other billable procedures. Treatments/Evaluations: Close monitoring and treatment of unstable vital signs, cardiorespiratory, and neurologic status, while maintaining tight balance of fluid, respiratory, and cardiac interventions. Patient will be admitted to the intensive care unit, she is without complaints of pain at this time and vital signs are normal. Patient was admitted to hospitalist. Departure Diagnosis: Primary Impression: Perforated abdominal viscus Additional Impressions: Leukocytosis Leukocytosis type: lymphocytosis Qualified Code: D72.820 - Lymphocytosis Acute hypokalemia Acute peritonitis Condition: Serious ANA AGLLEGO MD May 07, 2017 22:42
[2017-05-07] MEDS ORDERED: VANCOMYCIN 1 GM in NS 250 ML IVPB SCH (23:00)
--- NOTE | 2017-05-07 23:24 | CONS ---
Date/Time of Note Date/Time of Note DATE: 05/07/17 TIME: 23:24 Assessment/Plan Assessment/Plan Chief Complaint/Hosp Course 1. Abdominal pain, significant leukocytosis, CT with questionable free air versus air from recent surgery. Patient is not tachycardic. Not currently febrile. Abdomen is not rigid and she is without guarding. Patient is not in extremis and completely hemodynamically stable. Prior to proceeding with surgical exploration which was my original intention I will obtain CT with oral and rectal contrast to identify truly if there is a leak. -Close monitoring in ICU -Continue antibiotics -Judicious fluid management -N.p.o. -NG tube -Repeat CT with oral and rectal contrast pending 2. 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 -Right colectomy when time available and after medical optimization 3. Esophagitis -Diet and lifestyle optimization -Antacids 4. Hemorrhoids -Dietary and lifestyle optimization 5. Gastritis -Diet and lifestyle optimization -Antacids 6. Anemia secondary to above -As above 7. Hx GI bleed, multifactorial, secondary to above. Stable -Monitor -As above Thank you very much for consulting me in this patient's care, Problems: Consultation Date/Type/Reason Admit Date/Time May 07, 2017 at 20:57 Date of Consultation: May 07, 2017 Type of Consultation: General surgical Reason for Consultation Abdominal pain Fever Leukocytosis Decrease bowel function 7 days status post laparoscopic right colectomy for colon adenocarcinoma Referring Provider: ANA GALLEGO MD Hx of Present Illness Olga Galvan 81-year-old female who presented syncope weakness and lethargy and was found to have anemia secondary to the mass in the right colon with biopsy-proven adenocarcinoma. She was taken for a successful laparoscopic right colectomy with implantation of biologic on April 30. Patient progressed well with increase in her diet, ambulation, good bowel functions without fevers chills or any acute etiology or pathology. She was discharged home on the eighth with normal labs vitals and tolerating diet will bowel functions. She apparently represented yesterday with abdominal pain with mild leukocytosis at 12 however was discharge home from the ER. She presents today with worsening abdominal pain without nausea or vomiting. She denies any fevers or chills however she had fever in the emergency room. There is no chest pain or shortness of breath. There is no cough. She had a small bowel movement yesterday but none since then. No vaginal discharge. No dysuria. No trauma. She is weak still. ER evaluation found her to be febrile however with normal vitals without any tachycardia or hypotension. She does have significant leukocytosis however no lactic acidosis. Chest x-ray shows pneumonia. CT shows the air possible leak from anastomosis or other new sources. Surgical consult is obtained further evaluation and treatment. 12 point review of systems negative unless addressed in HPI Past Medical History Anemia Lower GI bleed, occult Syncope and weakness Right colonic adenocarcinoma Gastritis Esophagitis Hemorrhoids Significant leukocytosis Fevers Past Surgical History Laparoscopic right colectomy and biologic implantation of biologic, Midline abdominal hysterectomy for bleeding Family History Significant Family History: no pertinent family hx Social History Alcohol Use: none Smoking Status: Never smoker Drug Use: none Exam/Review of Systems Vital Signs Vitals Vital Signs Date Time Temp Pulse Resp B/P Pulse Ox O2 Delivery O2 Flow Rate FiO2 05/07/17 23:04 75 21 104/51 100 Nasal Cannula 2.0 05/07/17 21:28 99.4 Exam Constitutional: alert, oriented, No distress but anxious Psych: nl mood/affect and anxious Head: atraumatic, normocephalic Eyes: EOMI, PERRL, nl conjunctiva, No icteric ENMT: mucosa pink and somewhat dry, nl external ears & nose, nl lips & teeth Neck: non-tender, supple, No jvd Respiratory: normal air movement, No congested cough, No labored breathing Cardiovascular: regular rate and rhythm, No edema Gastrointestinal: Tender diffusely and minimally without rigidity, guarding, no rebound. Musculoskeletal: nl extremities to inspection, No joint tenderness, No range of motion Extremities: normal pulses, No calf tenderness, No cyanosis Neurological: nl mental status, nl speech, nl strength Skin: nl turgor, No diaphoresis, No rash or lesions Lymph: nl lymph nodes Results Result Diagram: 05/07/17194205/07/171942 Results 24 hrs Laboratory Tests Test 05/07/17 19:43 05/07/17 21:00 05/07/17 21:50 White Blood Count 20.3 #H Red Blood Count 3.94 L Hemoglobin 9.4 L Hematocrit 31.0 L Mean Corpuscular Volume 78.7 L Mean Corpuscular Hemoglobin 23.9 L Mean Corpuscular Hemoglobin Concent 30.3 L Red Cell Distribution Width 28.0 H Platelet Count 525 H Mean Platelet Volume 8.5 Neutrophils % 93.6 H Lymphocytes % 3.3 L Monocytes % 1.9 Eosinophils % 0.0 Basophils % 0.2 Nucleated Red Blood Cells % 0.0 Neutrophils # 18.9 H Lymphocytes # 0.7 L Monocytes # 0.4 Eosinophils # 0.0 Basophils # 0.0 Nucleated Red Blood Cells # 0.0 Prothrombin Time 16.8 #H Prothrombin Time Ratio 1.3 INR International Normalized Ratio 1.36 Activated Partial Thromboplast Time 31.8 Sodium Level 138 Potassium Level 3.2 L Chloride Level 101 Carbon Dioxide Level 27 Anion Gap 13 Blood Urea Nitrogen 12 Creatinine 0.70 Glucose Level 123 Lactic Acid Level 1.7 1.3 Calcium Level 8.7 Total Bilirubin 0.4 Direct Bilirubin 0.00 Indirect Bilirubin 0.4 Aspartate Amino Transf (AST/SGOT) 19 Alanine Aminotransferase (ALT/SGPT) 27 Alkaline Phosphatase 77 Troponin I < 0.012 Total Protein 6.5 # Albumin 3.2 L Globulin 3.30 H Albumin/Globulin Ratio 0.96 Lipase 35 Urine Color YELLOW Urine Clarity CLEAR Urine pH 6.0 Urine Specific [place] 1.059 H Urine Ketones NEGATIVE Urine Nitrite NEGATIVE Urine Bilirubin NEGATIVE Urine Urobilinogen NEGATIVE Urine Leukocyte Esterase NEGATIVE Urine Hemoglobin NEGATIVE Urine Glucose NEGATIVE Urine Total Protein NEGATIVE Medications Medications Current Medications Dextrose/Sodium Chloride (D5-1/2ns) 1,000 ml @ 100 mls/hr Q10H IV ; Start 04/13 at 22:02 Ondansetron HCl (Zofran Inj) 4 mg Q6H PRN IV NAUSEA AND/OR VOMITING; Start 04/13 at 22:30 Morphine Sulfate (morphine) 2 mg Q4H PRN IV PAIN LEVEL 7-10; Start 05/07/17 at 22:30 Lorazepam (Ativan) 1 mg Q2H PRN IV ANXIETY; Start 05/07/17 at 22:30 Pantoprazole 40 mg 40 mg DAILY@06 IV ; Start 05/08/17 at 06:00 Piperacillin Sod/ Tazobactam Sod 50 ml @ 100 mls/hr Q6 IVPB ; Start 05/08/17 at 00:00 Potassium Chloride 50 ml @ 55 mls/hr Q1H IVPB ; Start 05/07/17 at 22:30; Stop 05/08/17 at 00:25 Vancomycin HCl 250 ml @ 125 mls/hr NOW IVPB ; Start 05/07/17 at 23:00; Stop 05/07/17 at 23:59 Fluconazole 200 ml @ 100 mls/hr Q24H IVPB ; Start 05/07/17 at 23:00 Vancomycin HCl (Vancocin) 250 ml @ 125 mls/hr Q24H IVPB ; Start 05/08/17 at 22 :00 MICHELLE BOURNE MD May 07, 2017 23:24
[2017-05-07 23:30] VITALS: BP 106/55; RESP 18
[2017-05-07] MEDS ORDERED: IOHEXOL 14.3 MG(I)/ML (ADULT) BTL PO ONE (23:30)
[2017-05-07 23:45] VITALS: BP 109/56; PULSE 73; RESP 20
[2017-05-07 23:46] VITALS: PULSE 72
[2017-05-07 23:54] VITALS: Ht 157.5 cm; Wt 60.5 kg
[2017-05-08] VITALS (45 sets, daily range): BP systolic 79–171; BP diastolic 30–101; PULSE 67–141; RESP 14–35
[2017-05-08] MEDS: DEXTROSE 5%-0.45% NACL 1,000 ML IV SCH ×3 (01:02→15:12)
[2017-05-08] MEDS: PIPER-TAZO 3.375 GM IV (PMX) 50 ML IVPB SCH ×5 (01:32→18:01)
[2017-05-08] MEDS: POTASSIUM CHLORIDE 50 ML IVPB SCH ×2 (02:01→05:24)
[2017-05-08] MEDS ORDERED: DIATR MEGLU/DIATRIZOATE SODIUM 120 ML BTL ONE (02:17)
[2017-05-08] MEDS: FLUCONAZOLE 400 MG/NS (PMX) 200 ML IVPB SCH ×2 (02:51→23:11)
[2017-05-08] MEDS: morphine 2 MG INJ IV PRN ×2 (04:07→22:47)
[2017-05-08] MEDS: LORAZEPAM 2 MG INJ IV PRN ×2 (05:12→18:01)
[2017-05-08] MEDS ORDERED: POTASSIUM CHLORIDE 50 ML ONE (05:20)
--- NOTE | 2017-05-08 05:40 | RADRPT ---
PROCEDURE: CT of the abdomen and pelvis without contrast CLINICAL INDICATION: 8 days status post laparoscopic right hemicolectomy. Abnormal free air seen o n recent CT. Evaluate for an anastomotic leak.. TECHNIQUE: Spiral CT images through the abdomen and pelvis after administration of oral and rectal contrast but without the use of intravenous contrast. The administered radiation dose is CTDI 9.27 and DLP 539.63. One or more of the following dose reduction techniques were used: automated exposur e control, adjustment of the mA and/or kV according to patient size, or use of iterative reconstruct ion technique. COMPARISON: CT from yesterday FINDINGS: The study is limited by lack of intravenous contrast. Cardiomegaly and fibrotic changes of the lung bases are again seen. Again seen is a large amount of free intraperitoneal air, particularly in the upper abdomen. Slight fat stranding of the mesentery a nd omentum is similar to prior. Duodenal diverticulum is again seen. There is contrast extravasation anterior to the hemicolectomy anastomosis consistent with the suspected anastomotic leak. Air is se en in the soft tissues anterior to the anastomosis as well. No other extravasation is seen. Sigmoid diverticula are seen. There is residual contrast material in the renal collecting systems and urinar y bladder. Injection granulomas in the right gluteal region. Vascular calcification and degenerative change of the spine. No focal drainable abscess is seen. IMPRESSION: Confirmed anastomotic leak at the right hemicolectomy site. Extravasation of contrast is seen. Free intraperitoneal air and stranding again seen.. Results were called to the patient's ICU nurse at 05/08/2017 5:32:34 AM RPTAT: HLBE Physician Sami Date Time Electronically viewed and signed by Physician Sami on 05/08/2017 05:40 LE/
--- NOTE | 2017-05-08 05:57 | HP ---
Date/Time of Note Date/Time of Note DATE: 05/08/17 TIME: 05:44 Assessment/Plan VTE Prophylaxis VTE Prophylaxis Intervention: SCD's Lines/Catheters IV [facility] (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 Patient is hemodynamically stable but meets sepsis criteria as evidenced by fever and leukocytosis. PLAN Continue ICU monitoring Follow-up results of CT with oral and rectal contrast to to confirm if there is anastomotic leak Continue OG tube with intermittent suction Broad-spectrum antibiotic IV fluids Pain management Monitor hemoglobin closely. Patient with a history of hemorrhoid. Previous iron studies not consistent with iron deficiency. Patient also was a CT scan finding of pulmonary fibrosis. Continue supplemental oxygen. Pulmonary consult will be placed HPI/ROS Admit Date/Time Admit Date/Time May 07, 2017 at 20:57 Hx of Present Illness This is a 81-year-old female with a history of gastritis, esophagitis, anemia, hemorrhoids, and ascending colon adenocarcinoma status post laparoscopic right colectomy 2 days ago who presented to the ER with abdominal pain and distention. On presentation to the ER, she was febrile with a temperature of 101. Labs shows a WBC of 20,000. CT abdomen pelvis showed free air in the right abdomen, scattered air in the mesentery adjacent to region of right hemicolectomy surgery, concerning for an anastomotic leak, pulmonary fibrosis at the lung bases with in-stent honeycombing seen at the bilateral posterior costophrenic angles and Gallbladder wall thickening versus pericholecystic fluid. Currently patient is admitted to ICU. An OG tube is been placed since placement of an NG tube was unsuccessful and also caused bleeding. So far that has been about 900 cc of gastric contents aspirated through the OG tube. The OG tube is also making her uncomfortable. Dr. Sheppard from general surgery is already on board. PMH/Family/Social Social History Smoking Status: Never smoker Exam/Review of Systems Vital Signs Vitals Vital Signs Date Time Temp Pulse Resp B/P Pulse Ox O2 Delivery O2 Flow Rate FiO2 05/08/17 05:00 86 25 104/43 99 Nasal Cannula 3.0 05/08/17 04:00 97.8 Intake and Output 05/07/17 05/07/17 05/08/17 15:00 23:00 07:00 Intake Total 725 ml Output Total 300 ml Balance 425 ml Exam Constitutional: other (Patient in distress with OG tube) Head: atraumatic, normocephalic Eyes: PERRL Respiratory: other (Decreased breath sounds at the bases anteriorly) Cardiovascular: nl pulses, regular rate and rhythm Gastrointestinal: distended, tender Extremities: normal pulses Labs Result Diagram: 05/07/17194205/07/171942 Medications Medications Current Medications Dextrose/Sodium Chloride (D5-1/2ns) 1,000 ml @ 100 mls/hr Q10H IV Last administered on 05/08/17 01:02; Admin Dose 100 MLS/HR; Start 05/07/17 at 22: 02 Ondansetron HCl (Zofran Inj) 4 mg Q6H PRN IV NAUSEA AND/OR VOMITING Last administered on 05/08/17 04:15; Admin Dose 4 MG; Start 05/07/17 at 22:30 Morphine Sulfate (morphine) 2 mg Q4H PRN IV PAIN LEVEL 7-10 Last administered on 05/08/17 04:07; Admin Dose 2 MG; Start 05/07/17 at 22:30 Lorazepam (Ativan) 1 mg Q2H PRN IV ANXIETY Last administered on 05/08/17 05: 12; Admin Dose 1 MG; Start 05/07/17 at 22:30 Pantoprazole 40 mg 40 mg DAILY@06 IV ; Start 05/08/17 at 06:00 Piperacillin Sod/ Tazobactam Sod 50 ml @ 100 mls/hr Q6 IVPB Last administered on 05/08/17 05:24; Admin Dose 100 MLS/HR; Start 05/08/17 at 00:00 Fluconazole 200 ml @ 100 mls/hr Q24H IVPB Last administered on 05/08/17 02: 51; Admin Dose 100 MLS/HR; Start 05/07/17 at 23:00 Vancomycin HCl (Vancocin) 250 ml @ 125 mls/hr Q24H IVPB ; Start 05/08/17 at 22 :00 KEYLA FLORES MD May 08, 2017 05:56
[2017-05-08] MEDS ORDERED: PANTOPRAZOLE 40 MG INJ IV SCH (06:00)
[2017-05-08] MEDS ORDERED: HYDROmorphONE 1 MG/ML SYG IV PRN (06:00)
[2017-05-08] MEDS ORDERED: SOD CHLORIDE 0.9% 500 ML IV ONE ×2 (06:30→20:30)
[2017-05-08] MEDS: HYDROmorphONE 0.5 MG/0.5 ML SYG IV PRN (06:38)
[2017-05-08 06:44] LABS: ABNORMAL IP MESSAGE 1; HEMATOCRIT 33.4 % (37.0-47.0); HEMOGLOBIN 9.7 g/dl (12.0-16.0); MEAN CORPUSCULAR HEMOGLOBIN 23.4 pg (29.0-33.0); MEAN CORPUSCULAR VOLUME 80.5 fl (82.0-101.0); MEAN PLATELET VOLUME 9.7 fl (7.4-10.4); PLATELET COUNT 424 10^3/UL (140-415); RED BLOOD COUNT 4.15 10^6/ul (4.20-5.40); RED CELL DISTRIBUTION WIDTH 28.3 % (11.5-14.5); WHITE BLOOD COUNT 13.1 10^3/ul (4.8-10.8)
[2017-05-08 06:55] LABS: POSITIVE DIFF @See below
--- NOTE | 2017-05-08 07:11 | RADRPT ---
PROCEDURE: XR Chest. CLINICAL INDICATION: Check nasogastric tube position. TECHNIQUE: Single frontal view. COMPARISON: 05/07/2017. FINDINGS: There is a new nasogastric tube with the tip in the stomach. There is atelectasis at the lung bases. The lungs are otherwise clear. The heart is enlarged. There is contrast in the gastrointestinal tract from prior CT scan. There is free air in the abdomen as se en on the prior CT scan. There is no pleural effusion. There is no pneumothorax. IMPRESSION: 1. Nasogastric tube tip in the stomach. 2. Atelectasis at the lung bases. 3. Cardiomegaly. 4. Contrast in the gastrointestinal tract from prior CT scan. 5. Free air in the abdomen as seen on prior CT scan. RPTAT: QQ .Jefferson Greene MD, MD Date Time Electronically viewed and signed by .Jefferson Greene MD, MD on 05/08/2017 07:10 .R/
[2017-05-08 07:25] LABS: ALBUMIN 3.2 g/dl (3.3-4.9); ALBUMIN/GLOBULIN RATIO 0.96; BILIRUBIN,INDIRECT 0.5 mg/dl (0-1.1); BILIRUBIN,TOTAL 0.5 mg/dl (0.2-1.3); CALCIUM 8.8 mg/dl (8.4-10.2); CREATININE 0.76 mg/dl (0.44-1.00); TOTAL PROTEIN 6.5 g/dl (6.1-8.1)
[2017-05-08 07:26] LABS: POTASSIUM 3.5 mmol/L (3.5-5.1)
[2017-05-08 07:51] LABS: ANISOCYTOSIS 2+ (0-0); MICROCYTOSIS 1+ (0-0); MONOCYTES % (M) 1 % (0-11); PLATELET ESTIMATE NORMAL; POIKILOCYTOSIS 3+ (0-0); POLYCHROMASIA 3+ (0-0)
[2017-05-08] MEDS ORDERED: MIDAZOLAM 1 MG/ML 2 ML INJ ONE (10:26)
--- NOTE | 2017-05-08 10:27 | PN ---
Date/Time of Note Date/Time of Note DATE: 05/08/17 TIME: 10:23 Assessment/Plan Lines/Catheters IV Catheter Type (from [facility]): Peripheral IV Aguilar in Place (from [facility]): Yes Assessment/Plan Chief Complaint/Hosp Course 1. Abdominal pain, significant leukocytosis, CT with free air and contrast leak probably at anastomosis per radiology. -IV abx -IVF/supportive -N.p.o. -NG tube -OR (d/w patient, son, and grandson) 2. 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 -eventual onc follow up 3. Esophagitis -Diet and lifestyle optimization -Antacids 4. Hemorrhoids -Dietary and lifestyle optimization 5. Gastritis -Diet and lifestyle optimization -Antacids 6. Anemia secondary to above -As above 7. Hx GI bleed, multifactorial, secondary to above. Stable -Monitor -As above Thank you, Problems: Subjective 24 Hr Interval Summary Abdominal pain. Nausea but no vomiting. NGT 800ml output. Low grade temp. No chills. No cp. Difficulty breathing. Aguilar. Making urine. Bandemia. No soto/dizzy/visual or neuro changes. Bloated. Patient, son, and grandson understand the urgency of surgery and agree to proceed with all the risks associated. Exam/Review of Systems Vital Signs Vitals Vital Signs Date Time Temp Pulse Resp B/P Pulse Ox O2 Delivery O2 Flow Rate FiO2 05/08/17 08:00 90 35 103/55 99 Nasal Cannula 2.0 05/08/17 07:42 99.1 Intake and Output 05/07/17 05/07/17 05/08/17 15:00 23:00 07:00 Intake Total 1925 ml Output Total 2385 ml Balance -460 ml Exam Free Text/Dictation Constitutional: alert, oriented, No distress but anxious Psych: nl mood/affect and anxious Head: atraumatic, normocephalic Eyes: EOMI, PERRL, nl conjunctiva, No icteric ENMT: mucosa pink and somewhat dry, nl external ears & nose, nl lips & teeth Neck: non-tender, supple, No jvd Respiratory: normal air movement, No congested cough, No labored breathing Cardiovascular: regular rate and rhythm, No edema Gastrointestinal: Tender diffusely with voluntary guarding Musculoskeletal: nl extremities to inspection, No joint tenderness, No range of motion Extremities: normal pulses, No calf tenderness, No cyanosis Neurological: nl mental status, nl speech, nl strength Skin: nl turgor, No diaphoresis, No rash or lesions Lymph: nl lymph nodes Results Result Diagram: 05/08/17 0525 05/08/17 0525 MICHELLE BOURNE MD May 08, 2017 10:27
[2017-05-08] MEDS ORDERED: ONDANSETRON 4 MG INJ IV PRN ×2 (10:30→15:00)
[2017-05-08] MEDS ORDERED: PHENYLephrine (100 MCG/ML) 5ML SYG ONE ×2 (10:41→11:07)
[2017-05-08] MEDS ORDERED: BUPIVACAINE 0.5%/EPI (SDV) 30 ML INJ INJ ONE (11:05)
[2017-05-08] MEDS ORDERED: LIDOCAINE 1% (MPF) 30 ML INJ INJ ONE (11:05)
[2017-05-08] MEDS ORDERED: BUPIVACAINE 0.5%/EPI (SDV) 30 ML INJ ONE (11:56)
[2017-05-08] MEDS ORDERED: LIDOCAINE 1% (MPF) 30 ML INJ ONE (11:56)
--- NOTE | 2017-05-08 13:21 | PN ---
Date/Time of Note Date/Time of Note DATE: 05/08/17 TIME: 13:17 Assessment/Plan VTE Prophylaxis VTE Prophylaxis Intervention: SCD's Lines/Catheters IV Catheter Type (from [facility]): Peripheral IV Urinary Cath still in place: Yes Reason Cath still needed: urinary retention Assessment/Plan Chief Complaint/Hosp Course A/P: 81-year-old female with a history of gastritis, esophagitis, anemia, hemorrhoids, and ascending colon adenocarcinoma status post laparoscopic right colectomy 2 days ago who presented to the ER with abdominal pain and distention concerning for possible anastomotic leak. Patient is hemodynamically stable but meets sepsis criteria as evidenced by fever and leukocytosis. 1. Abdominal pain and anastomotic leak: Again patient status post laparoscopic colectomy 2 days prior to admission for colon adenocarcinoma - Continue ICU monitoring, patient getting surgical procedure performed by general surgery team, follow-up post procedure recommendations - Continue OG tube with intermittent suction -Continue broad-spectrum antibiotic, IV fluids -Pain management - Monitor hemoglobin closely. Patient with a history of hemorrhoid. Previous iron studies not consistent with iron deficiency. 2. pulmonary fibrosis: Continue supplemental oxygen. Pulmonary consult Critical care time spent on patient care today equals 40 minutes. Problems: Subjective 24 Hr Interval Summary Free Text/Dictation No acute events overnight, seen by general surgery team, presently off the floor at surgery. Exam/Review of Systems Vital Signs Vitals Vital Signs Date Time Temp Pulse Resp B/P Pulse Ox O2 Delivery O2 Flow Rate FiO2 05/08/17 08:00 90 35 103/55 99 Nasal Cannula 2.0 05/08/17 07:42 99.1 Intake and Output 05/07/17 05/07/17 05/08/17 15:00 23:00 07:00 Intake Total 1925 ml Output Total 2385 ml Balance -460 ml Exam PE: -Unable to be performed today since patient is off the floor at surgical procedure Results Result Diagram: 05/08/17 0525 05/08/17 0525 Results 24 hrs Laboratory Tests Test 05/07/17 19:43 05/07/17 21:00 05/07/17 21:50 05/08/17 00:39 White Blood Count 20.3 #H Red Blood Count 3.94 L Hemoglobin 9.4 L Hematocrit 31.0 L Mean Corpuscular Volume 78.7 L Mean Corpuscular Hemoglobin 23.9 L Mean Corpuscular Hemoglobin Concent 30.3 L Red Cell Distribution Width 28.0 H Platelet Count 525 H Mean Platelet Volume 8.5 Neutrophils % 93.6 H Lymphocytes % 3.3 L Monocytes % 1.9 Eosinophils % 0.0 Basophils % 0.2 Nucleated Red Blood Cells % 0.0 Neutrophils # 18.9 H Lymphocytes # 0.7 L Monocytes # 0.4 Eosinophils # 0.0 Basophils # 0.0 Nucleated Red Blood Cells # 0.0 Prothrombin Time 16.8 #H Prothrombin Time Ratio 1.3 INR International Normalized Ratio 1.36 Activated Partial Thromboplast Time 31.8 Sodium Level 138 Potassium Level 3.2 L Chloride Level 101 Carbon Dioxide Level 27 Anion Gap 13 Blood Urea Nitrogen 12 Creatinine 0.70 Glucose Level 123 Lactic Acid Level 1.7 1.3 1.2 Calcium Level 8.7 Total Bilirubin 0.4 Direct Bilirubin 0.00 Indirect Bilirubin 0.4 Aspartate Amino Transf (AST/SGOT) 19 Alanine Aminotransferase (ALT/SGPT) 27 Alkaline Phosphatase 77 Troponin I < 0.012 Total Protein 6.5 # Albumin 3.2 L Globulin 3.30 H Albumin/Globulin Ratio 0.96 Lipase 35 Urine Color YELLOW Urine Clarity CLEAR Urine pH 6.0 Urine Specific [place] 1.059 H Urine Ketones NEGATIVE Urine Nitrite NEGATIVE Urine Bilirubin NEGATIVE Urine Urobilinogen NEGATIVE Urine Leukocyte Esterase NEGATIVE Urine Hemoglobin NEGATIVE Urine Glucose NEGATIVE Urine Total Protein NEGATIVE Test 05/08/17 05:25 White Blood Count 13.1 #H Red Blood Count 4.15 L Hemoglobin 9.7 L Hematocrit 33.4 L Mean Corpuscular Volume 80.5 L Mean Corpuscular Hemoglobin 23.4 L Mean Corpuscular Hemoglobin Concent 29.0 L Red Cell Distribution Width 28.3 H Platelet Count 424 H Mean Platelet Volume 9.7 Neutrophils % Segmented Neutrophils % (Manual) 60 Band Neutrophils % (Manual) 30 H Lymphocytes % Lymphocytes % (Manual) 9 L Monocytes % Monocytes % (Manual) 1 Eosinophils % Basophils % Nucleated Red Blood Cells % 0.0 Neutrophils # Neutrophils # (Manual) 8.4 H Band Neutrophils # 3.9 H Absolute Lymphocytes (Manual) 1.1 Lymphocytes # Monocytes # Absolute Monocytes (Manual) 0.1 L Eosinophils # Basophils # Nucleated Red Blood Cells # Platelet Estimate NORMAL Polychromasia 3+ Poikilocytosis 3+ Anisocytosis 2+ Microcytosis 1+ Macrocytosis 1+ Sodium Level 143 Potassium Level 3.5 Chloride Level 106 Carbon Dioxide Level 22 Anion Gap 19 H Blood Urea Nitrogen 10 Creatinine 0.76 Glucose Level 100 Calcium Level 8.8 Total Bilirubin 0.5 Direct Bilirubin 0.00 Indirect Bilirubin 0.5 Aspartate Amino Transf (AST/SGOT) 15 Alanine Aminotransferase (ALT/SGPT) 28 Alkaline Phosphatase 80 Total Protein 6.5 Albumin 3.2 L Globulin 3.30 H Albumin/Globulin Ratio 0.96 Medications Medications Current Medications Dextrose/Sodium Chloride (D5-1/2ns) 1,000 ml @ 100 mls/hr Q10H IV Last administered on 05/08/17 01:02; Admin Dose 100 MLS/HR; Start 05/07/17 at 22: 02 Morphine Sulfate (morphine) 2 mg Q4H PRN IV PAIN LEVEL 7-10 Last administered on 05/08/17 04:07; Admin Dose 2 MG; Start 05/07/17 at 22:30 Lorazepam (Ativan) 1 mg Q2H PRN IV ANXIETY Last administered on 05/08/17 05: 12; Admin Dose 1 MG; Start 05/07/17 at 22:30 Pantoprazole 40 mg 40 mg DAILY@06 IV Last administered on 05/08/17 06:44; Admin Dose 40 MG; Start 05/08/17 at 06:00 Piperacillin Sod/ Tazobactam Sod 50 ml @ 100 mls/hr Q6 IVPB Last administered on 05/08/17 05:24; Admin Dose 100 MLS/HR; Start 05/08/17 at 00:00 Fluconazole 200 ml @ 100 mls/hr Q24H IVPB Last administered on 05/08/17 02: 51; Admin Dose 100 MLS/HR; Start 05/07/17 at 23:00 Vancomycin HCl (Vancocin) 250 ml @ 125 mls/hr Q24H IVPB ; Start 05/08/17 at 22 :00 Hydromorphone HCl 0.5 mg 0.5 mg Q3H PRN IV PAIN Last administered on 06:38; Admin Dose 0.5 MG; Start 05/08/17 at 06:15 Ondansetron HCl/ Dextrose (Zofran Inj/D5W) 54 ml @ 108 mls/hr Q6H PRN IV NAUSEA AND/OR VOMITING; Start 05/08/17 at 06:30 SARAH AVILA May 08, 2017 13:21
[2017-05-08] MEDS ORDERED: GLYCOPYRROLATE 0.4 MG INJ ONE (14:32)
[2017-05-08] MEDS ORDERED: ETOMIDATE 20 MG INJ ONE (14:32)
[2017-05-08] MEDS ORDERED: NEOSTIGMINE 3 MG/3 ML SYRINGE ONE (14:32)
[2017-05-08] MEDS ORDERED: LIDOCAINE 2% (SDV) 5 ML INJ ONE (14:32)
[2017-05-08] MEDS ORDERED: ROCURONIUM 50 MG INJ ONE (14:32)
--- NOTE | 2017-05-08 14:34 | OPR ---
Date/Time of Note Date/Time of Note DATE: 05/08/17 TIME: 14:21 Operative Report Free Text/Dictation Preoperative Diagnosis: Ascending colon adenocarcinoma status post laparoscopic right colectomy 04/30/17 Anastomotic leak of unknown etiology with peritonitis and sepsis Postoperative Diagnosis: Ascending colon adenocarcinoma status post laparoscopic right colectomy 04/30/17 Anastomotic leak mid staple line with open jaymie for about a 3 mm enterotomy with peritonitis and sepsis Operation(s) Performed: 1. Laparoscopic washout and repair of an anastomotic enterotomy 2. Loop ileostomy with the lower opening as the proximal ileum with primary drainage and upper opening as the distal ileum going to the anastomosis and colon 3. Laparoscopic implantation of xenograft biologic over the anastomosis for improved healing 4. Local anesthetic injection, [id number] Surgeon: MICHELLE BOURNE MD Anesthesia: General, local, & regional Anesthesiologist: Terence Posada MD Estimated Blood Loss: 20 ml's Specimens: None Tubes/Drains/grafts: 19 Singaporean Adán's 2 Complications: None Pt Condition Post Procedure: stable Disposition: PACU Indications: Per notes. Patient is 8 days post right colectomy who presented 2 days ago apparently with abdominal pain was discharged home from the ER but we presented last night with worsening pain and fever and was found to have increase free air. However since she was not tachycardic and not rigid CT with oral rectal contrast was obtained which identified contrast leak and decision was made to proceed with surgery after discussing with patient and family members including son and grandson. Risks include but are not limited to bleeding, infection, abscess, seroma, leak , damage to intestines or any intra-abdominal/intrapelvic structures, hernia formation, chronic pain, need for re-operations or further surgeries, AL, stroke , PE, DVT, pneumonia, organ failures, or even . Procedure Description: Patient was brought in, placed supine on the operating table, SCDs were placed, and preoperative antibiotics administered. After induction of anesthesia, all pressure points were well-padded and timeout was performed. Local anesthetic was injected at all surgical sites. Incision was made in the left upper quadrant and using an Optiview 5 mm port and the 5 mm 0 scope abdomen was entered and insufflated to 15 mmHg with CO2. Laparoscopy with a 5 mm 30 scope identified some dark fluid throughout the abdomen. Under direct visualization 5 mm ports were placed in left lower quadrant and lower mid abdomen all through her previous incisions. Laparoscopic bilateral transversus abdominis plane block was performed under laparoscopic visualization to aid with pain control intra-and postoperatively. All the fluid was suctioned out and around the anastomosis was able to pull the omentum off of the anastomosis and fully expose the anastomosis. The bowel all looked healthy without ischemia. After squeezing both ends of the bowel we identified a small leak from mid staple line were a few jaymie had opened and there was leakage. This opening was about 3 mm. Further investigation of the anastomosis seem to be without any other defects and then M anastomosis was patent since air and fluid was passed through the anastomosis by squeezing the terminal ileum or the transverse colon. This point I made a decision since the tissue was still pretty healthy to repair the small enterotomy and place a loop ileostomy to allow this area to heal. The small opening was closed with 2-0 Vicryl suture in a [id number] manner which was reinforced with 2-0 silk Lembert sutures. The sutures were holding at this time. There was no tension. Abdomen was irrigated throughout with 6 L of warm saline solution and all irrigated out and by the end of the irrigation and suctioning fluid was pretty clear. There was also grade hemostasis. The omentum was pulled over the anastomosis and fully cover the anastomosis. About 20 cm proximal to the anastomosis terminal ileum was identified and proximal and distal sutures were placed. Incision was made in right lower quadrant through the rectus and loop was exteriorized and secured to the fascia with 2-0 silk sutures 4. This was eventually matured into a double barrel/ loop ileostomy and a 16 Singaporean red Aristeo catheter was used as a bridge and speech was secured with 2-0 nylon to the abdominal wall. Maturation was done with 2-0 silk sutures everting the ileum on both ends and securing it with silk to the dermis. Ports and CO2 were removed under direct visualization. Wounds were thoroughly irrigated and skin was closed with 4-0 Monocryl subcu fashion after 2x 19 [place]an Adán's were placed through the left upper and left lateral quadrant incisions. The lower drain was placed in the pelvis and the upper drain was subhepatic and around the anastomosis below the omentum. Patient had received an A-line and a central line by anesthesia prior to the start of surgery. Patient was extubated and transferred in fair condition and all counts were correct at the end the operation 2. TAYLA,MICHELLE MD May 08, 2017 14:33
[2017-05-08] MEDS ORDERED: FENTAnyl 50 MCG/ML VIAL IV PRN (15:00)
[2017-05-08] MEDS ORDERED: morphine (1 MG/ML) 10ML SYRINGE IV PRN ×2 (15:00)
[2017-05-08] MEDS ORDERED: DIPHENHYDRAMINE 50 MG INJ IV PRN (15:00)
[2017-05-08] MEDS ORDERED: LORAZEPAM 2 MG INJ IV PRN (15:00)
[2017-05-08] MEDS ORDERED: hydrALAzine 20 MG INJ IV PRN (15:00)
[2017-05-08] MEDS ORDERED: LABETALOL HCL 20MG INJ IV PRN (15:00)
[2017-05-08] MEDS ORDERED: EPHEDrine SULFATE 50 MG/5 ML SYG IV PRN (15:00)
[2017-05-08] MEDS ORDERED: MIDAZOLAM 1 MG/ML 2 ML INJ IV PRN (15:00)
[2017-05-08] MEDS ORDERED: MEPERIDINE 25 MG INJ IV PRN (15:00)
--- NOTE | 2017-05-08 16:03 | RADRPT ---
PROCEDURE: XR Chest. CLINICAL INDICATION: Assess endotracheal tube placement. TECHNIQUE: Single frontal view of the chest was obtained. COMPARISON: Chest x-ray 05/08/2017 02:[address] scan of the abdomen pelvis 05/08/2017. FINDINGS: The distal end of the endotracheal tube rest 2.4 cm superior to the juan a. A central venous cathete r enters from right internal jugular approach with its tip in the superior vena cava. There is no ev idence of a pneumothorax. A nasogastric tube is positioned distal to the GE junction. Contrast is no jesus in the descending colon. There are degenerative osteophytes in the thoracic spine. Monitoring e lectrodes are draped across the chest. The the heart has a transverse configuration. The cardiomedi astinal silhouette and hilar structures are normal. The pulmonary vasculature is normal. There are vascular calcifications in the aortic arch. There is consolidative infiltrate or atelectasis in the left lower lobe. There is compressive atelectasis in the right lower lobe. Small pleural effusions are not excluded. IMPRESSION: 1. Satisfactory positioning of an endotracheal tube with its distal end 2.4 cm superior to the jake a. 2. Satisfactory positioning of the central venous catheter and nasogastric tube. 3. Suboptimal inspiratory effort with compressive atelectasis in the bases of the lungs. 4. No evidence of pneumoperitoneum within the limits of a supine film. A supine film is relatively insensitive in detecting pneumoperitoneum. RPTAT:AAJJ Physician Cassy Date Time Electronically viewed and signed by Ra Gomez Physician on 05/08/2017 16:03 HERB/
--- NOTE | 2017-05-08 16:37 | RADRPT ---
PROCEDURE: XR Chest. CLINICAL INDICATION: Check line placement. TECHNIQUE: Single frontal view. COMPARISON: Prior study done earlier the same day. FINDINGS: The nasogastric tube tip is in the stomach. There is a new endotracheal tube with the tip at the lev el of the upper clavicle heads and 6.5 cm above the juan a. This should be advanced approximately 3. 5 cm. There is a right internal jugular vein catheter with the tip in the mid superior vena cava. Atelectasis at the lung bases is unchanged. The lungs are otherwise clear. The heart is enlarged. Contrast is present in the gastrointestinal tract from the prior CT scan. Free air in the abdomen se en on the prior study is not well seen on the current study. There is no pleural effusion. There is no pneumothorax. IMPRESSION: 1. The endotracheal tube should be advanced approximately 3.5 cm. 2. Nasogastric tube and right IJ catheter in satisfactory position. 3. No other significant change from the prior study done earlier the same day. RPTAT: QQ .Jefferson Greene MD, MD Date Time Electronically viewed and signed by .Jefferson Greene MD, on 05/08/2017 16:37 .R/
[2017-05-08 17:05] LABS: AADO2 Arterial 170.8 mmHg (7.0-24.0); Arterial Base Excess -7.8 mmol/L (-3.0-3); Arterial COHb 0.3 % (0.0-3.0); Arterial Fraction of Oxyhgb 98.9 % (93.0-99.0); Arterial HCO3 17.6 mmol/L (22.0-26.0); Arterial MetHb 0.2 % (0.0-1.5); Arterial Total Hemglobin 9.8 g/dl (12.0-18.0); MODE VENT - AC
[2017-05-08] MEDS ORDERED: PHENYLephrine 40 MG in DEXTROSE 5% 496 ML IV SCH (21:30)
[2017-05-08] MEDS ORDERED: VANCOMYCIN 1 GM in NS 250 ML IVPB SCH (22:00)
[2017-05-08] MEDS ORDERED: SOD CHLORIDE 0.9% 1,000 ML IV ONE (23:30)
[2017-05-08] MEDS ORDERED: ACETAMINOPHEN 1000MG/100ML IV 100 ML IVPB ONE (23:30)
[2017-05-09] VITALS (79 sets, daily range): BP systolic 86–125; BP diastolic 47–98; PULSE 97–145; RESP 13–46
[2017-05-09] MEDS: DEXTROSE 5%-0.45% NACL 1,000 ML IV SCH ×2 (03:10→12:14)
[2017-05-09] MEDS: MEROPENEM 500MG/50 ML (PMX) 50 ML IVPB SCH ×3 (05:23→21:23)
[2017-05-09 06:21] LABS: ABNORMAL IP MESSAGE 1; HEMATOCRIT 26.1 % (37.0-47.0); HEMOGLOBIN 7.7 g/dl (12.0-16.0); MEAN CORPUSCULAR HEMOGLOBIN 23.8 pg (29.0-33.0); MEAN CORPUSCULAR HGB CONC 29.5 g/dl (32.0-37.0); MEAN CORPUSCULAR VOLUME 80.6 fl (82.0-101.0); MEAN PLATELET VOLUME 9.1 fl (7.4-10.4); NUCLEATED RED BLOOD CELLS% 0.2 /100WBC (0.0-0.0); PLATELET COUNT 343 10^3/UL (140-415); RED BLOOD COUNT 3.24 10^6/ul (4.20-5.40); WHITE BLOOD COUNT 10.6 10^3/ul (4.8-10.8)
[2017-05-09 06:30] LABS: POSITIVE DIFF @See below
[2017-05-09 06:49] LABS: ALBUMIN 1.9 g/dl (3.3-4.9); ALBUMIN/GLOBULIN RATIO 0.7; BILIRUBIN,INDIRECT 0.1 mg/dl (0-1.1); BILIRUBIN,TOTAL 0.1 mg/dl (0.2-1.3); CALCIUM 7.6 mg/dl (8.4-10.2); CREATININE 1.23 mg/dl (0.44-1.00); POTASSIUM 3.1 mmol/L (3.5-5.1); TOTAL PROTEIN 4.6 g/dl (6.1-8.1)
[2017-05-09 08:00] LABS: ANISOCYTOSIS 2+ (0-0); ERYTHROBLAST% (NRBC) (M) 4 % (0-0); GIANT THROMBO% (M) 11 % (0-0); MONOCYTES % (M) 2 % (0-11); PLATELET ESTIMATE NORMAL; POIKILOCYTOSIS 3+ (0-0); POLYCHROMASIA 3+ (0-0)
[2017-05-09] MEDS ORDERED: NACL 3% FOR INHALATION 15 ML NEBU NEB ONE (08:00)
[2017-05-09] MEDS: FAMOTIDINE 20 MG INJ IV SCH ×2 (08:34→21:20)
--- NOTE | 2017-05-09 10:03 | PN ---
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 1. Abdominal pain and anastomotic leak: Again patient status post laparoscopic anastomotic repair surgery postop day #1. - Continue ICU monitoring, follow-up post procedure recommendations, monitor drainage from ileostomy bag in ALTAGRACIA drain 2 - Continue OG tube with intermittent suction -Continue broad-spectrum antibiotic, IV fluids, trend lactic acid, as it is slightly more elevated since admission -Pain management as needed 2. pulmonary fibrosis: Intubated presently s/post surgery. -Follow-up pulmonary consult, per discussion with them may try CPAP trial today. 3. Gastritis/esophagitis: Found on EGD performed on April 21 of this year. Continue H2 aly 4. Hemorrhoids: Found on colonoscopy performed on April 21 of this year. Hemoglobin has now dropped from 9.7-7.7. No signs of any bleeding. Patient did have surgical procedure yesterday as well, see #1. -We will repeat stat H&H, if abnormal, consider GI re-consult -Check stool occult test as well 5. 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 Problems: Subjective 24 Hr Interval Summary Free Text/Dictation Patient had the laparoscopic surgery performed yesterday for repair of an anastomotic leak, now with ileostomy bag. Had fever and hypotension last night , started on antibiotics and fluids. Exam/Review of Systems Vital Signs Vitals Vital Signs Date Time Temp Pulse Resp B/P Pulse Ox O2 Delivery O2 Flow Rate FiO2 05/09/17 09:00 99 16 111/50 100 Mechanical Ventilator 05/09/17 08:55 40 05/09/17 07:30 99.3 05/08/17 10:00 2.0 Intake and Output 05/08/17 05/08/17 05/09/17 15:00 23:00 07:00 Intake Total 1850 ml 1583.75 ml 2746.25 ml Output Total 490 ml 515 ml 241 ml Balance 1360 ml 1068.75 ml 2505.25 ml Exam Constitutional: Lying in bed, intubated Head: atraumatic, normocephalic Eyes: PERRL Respiratory: Some decreased breath sounds at the bases anteriorly Cardiovascular: nl pulses, regular rate and rhythm Gastrointestinal: Less distended, ileostomy bag, ALTAGRACIA drains noted Extremities: No lower extremity edema bilaterally Results Result Diagram: 05/09/17 0500 05/09/17 0500 Results 24 hrs Laboratory Tests Test 05/08/17 16:49 05/09/17 05:00 05/09/17 07:54 Blood Gas Specimen Source Blood arterial Arterial Blood Date Drawn 05/08/2017 4:45:46 PM Arterial Blood pH (Temp corrected) 7.313 L Arterial Blood pCO2 (Temp correct) 35.6 Arterial Blood pO2 (Temp corrected) 217.8 H Arterial Blood HCO3 17.6 L Arterial Blood Base Excess -7.8 L Arterial Blood Oxygen Saturation 99.4 Raciel Test N/A Arterial Blood Gas Puncture Site Right Brachial Arterial Blood Carboxyhemoglobin 0.3 Arterial Blood Methemoglobin 0.2 Blood Gas A-a O2 Differential 170.8 H Oxyhemoglobin Percent 98.9 Total Hemoglobin 9.8 L Blood Gas Temperature 37.0 Blood Gas Respiration Rate 14.0 Blood Gas Actual Respiration Rate 24 Blood Gas Modality VENT - AC FiO2 60.0 Blood Gas Tidal Volume 500.0 Blood Gas Low PEEP Setting 5.0 Blood Gas Notified Whom Breanne LANGSTON Blood Gas Notified Time 05/08/2017 5:04:50 PM White Blood Count 10.6 Red Blood Count 3.24 #L Hemoglobin 7.7 #L Hematocrit 26.1 #L Mean Corpuscular Volume 80.6 L Mean Corpuscular Hemoglobin 23.8 L Mean Corpuscular Hemoglobin Concent 29.5 L Red Cell Distribution Width 28.0 H Platelet Count 343 Mean Platelet Volume 9.1 Neutrophils % Segmented Neutrophils % (Manual) 21 L Band Neutrophils % (Manual) 66 H Lymphocytes % Lymphocytes % (Manual) 11 L Monocytes % Monocytes % (Manual) 2 Eosinophils % Basophils % Nucleated Red Blood Cells % 4 H Neutrophils # Neutrophils # (Manual) 3.0 Band Neutrophils # 6.9 H Absolute Lymphocytes (Manual) 1.1 Lymphocytes # Monocytes # Absolute Monocytes (Manual) 0.2 L Eosinophils # Basophils # Nucleated Red Blood Cells # Platelet Estimate NORMAL Giant Platelets 11 H Polychromasia 3+ Poikilocytosis 3+ Anisocytosis 2+ Macrocytosis 1+ Sodium Level 141 Potassium Level 3.1 L Chloride Level 112 H Carbon Dioxide Level 21 Anion Gap 11 # Blood Urea Nitrogen 18 Creatinine 1.23 H Glucose Level 120 Calcium Level 7.6 L Total Bilirubin 0.1 L Direct Bilirubin 0.00 Indirect Bilirubin 0.1 Aspartate Amino Transf (AST/SGOT) 20 Alanine Aminotransferase (ALT/SGPT) 28 Alkaline Phosphatase 45 Total Protein 4.6 #L Albumin 1.9 #L Globulin 2.70 Albumin/Globulin Ratio 0.70 Lactic Acid Level 3.8 *H Medications Medications Current Medications Dextrose/Sodium Chloride (D5-1/2ns) 1,000 ml @ 100 mls/hr Q10H IV Last administered on 05/09/17 03:10; Admin Dose 100 MLS/HR; Start 05/07/17 at 22: 02 Morphine Sulfate (morphine) 2 mg Q4H PRN IV PAIN LEVEL 7-10 Last administered on 05/08/17 22:47; Admin Dose 2 MG; Start 05/07/17 at 22:30 Lorazepam 1 mg 1 mg Q2H PRN IV ANXIETY Last administered on 05/08/17 18:01; Admin Dose 1 MG; Start 05/07/17 at 22:30 Fluconazole 200 ml @ 100 mls/hr Q24H IVPB Last administered on 05/08/17 23: 11; Admin Dose 100 MLS/HR; Start 05/07/17 at 23:00 Vancomycin HCl (Vancocin) 250 ml @ 125 mls/hr Q24H IVPB Last administered on 05/08/17 21:40; Admin Dose 125 MLS/HR; Start 05/08/17 at 22:00 Hydromorphone HCl 0.5 mg 0.5 mg Q3H PRN IV PAIN Last administered on 06:38; Admin Dose 0.5 MG; Start 05/08/17 at 06:15 Ondansetron HCl/ Dextrose (Zofran Inj/D5W) 54 ml @ 108 mls/hr Q6H PRN IV NAUSEA AND/OR VOMITING; Start 05/08/17 at 06:30 Famotidine 20 mg 20 mg Q12 IV Last administered on 05/09/17 08:34; Admin Dose 20 MG; Start 05/09/17 at 09:00 Phenylephrine HCl 40 mg/Dextrose 500 ml @ 75 mls/hr TITRATE IV Last administered on 05/08/17 22:19; Admin Dose 75 MLS/HR; Start 05/08/17 at 21:30 Meropenem/Sodium Chloride (Merrem 500mg/50 ml(Pmx)) 50 ml @ 200 mls/hr Q8 IVPB Last administered on 05/09/17 05:23; Admin Dose 200 MLS/HR; Start 05/09/17 at 06:00 SARAH AVILA May 09, 2017 10:00
[2017-05-09 11:10] LABS: HEMOGLOBIN 7.8 g/dl (12.0-16.0)
[2017-05-09] MEDS ORDERED: POTASSIUM CHLORIDE 20 MEQ in DEXTROSE 5% 100 ML IVPB ONE (11:30)
--- NOTE | 2017-05-09 11:54 | CONS ---
DATE OF ADMISSION: 05/07/2017 DATE OF CONSULTATION: PULMONARY CONSULTATION REASON FOR CONSULTATION: Ventilator management. Thank you, Dr. Grimm, for this consultation. HISTORY OF PRESENT ILLNESS: This is an unfortunate 81-year-old lady with multiple medical problems including history of ascending adenocarcinoma status post laparoscopic right colectomy 2 days ago, p resented to the ER with worsening abdominal pain, nausea, vomiting, concerning for an anastomotic le ak. In addition, the patient, per chart, had fever and leukocytosis of 20,000. The patient was temi en to surgery yesterday, found to have anastomotic leak, mid-staple line, underwent laparoscopic was hout and repair with anastomotic enterotomy, loop ileostomy and implantation of xenograft. Postoper atively, she remained on mechanical ventilation and requires vasopressor support. This morning she is awake, alert, and oriented. PAST MEDICAL HISTORY: As above. MEDICATIONS: Per chart. ALLERGIES: NONE. SOCIAL HISTORY: Nonsmoker, no alcohol, no history of drug use. FAMILY HISTORY: Noncontributory. SYSTEMS REVIEW: A 12-point review of systems was negative other than that mentioned above. PHYSICAL EXAMINATION: GENERAL: Well-nourished, well-developed lady, who appears comfortable at rest, on mechanical ventil ation. Makes eye contact, attempting to communicate. VITAL SIGNS: Temperature is 99.3, pulse is 100, blood pressure 121/65, O2 saturation 96%, FIO2 of 4 0%. HEENT: Orally intubated. Dry mucous membranes. Pupils equal and reactive to light. CARDIAC EXAM: S1, S2, no added sounds or murmurs. CHEST: Diminished air entry bilaterally. ABDOMEN: Distended, no bowel sounds. EXTREMITIES: No cyanosis, clubbing. 1+ edema. NEUROLOGIC: Generalized weakness. LABORATORY DATA: White count now is 10.6, hemoglobin 7.3, platelets of 343. Lactic acid was elevat ed at 3.8. ABG is pending as of this morning. IMPRESSION AND PLAN: 1. Anastomotic leak from recent bowel resection. 2. History of adenocarcinoma. 3. Severe sepsis, septic shock. 4. Status post repair of anastomotic leak and bowel washout. PLAN: 1. Continue broad-spectrum antibiotic coverage. Currently the patient is on meropenem and vancomyc in. 2. Decrease vasopressors as tolerated. 3. IV fluids. 4. CPAP trial and extubation. 5. DVT and GI prophylaxis. Dictated By: ANAYA BRUSH MD SV/NONI Conf#: [id number] DID#: [id number] CC: KEYLA FLORES MD;*EndCC*
[2017-05-09 12:08] LABS: AADO2 Arterial 110.5 mmHg (7.0-24.0); Allen Test ACCEPTAB; Arterial Base Excess -5.8 mmol/L (-3.0-3); Arterial COHb 0.4 % (0.0-3.0); Arterial Fraction of Oxyhgb 98.1 % (93.0-99.0); Arterial HCO3 18.7 mmol/L (22.0-26.0); Arterial MetHb 0.3 % (0.0-1.5); Arterial Total Hemglobin 8.5 g/dl (12.0-18.0); Blood Gas PS 10; MODE VENT - CPAP
[2017-05-09] MEDS: ONDANSETRON INJ 8 MG in DEXTROSE 5% 50 ML IV PRN (12:35)
--- NOTE | 2017-05-09 14:48 | PN ---
Date/Time of Note Date/Time of Note DATE: 05/09/17 TIME: 14:22 Assessment/Plan Lines/Catheters IV Catheter Type (from [facility]): Central Line Aguilar in Place (from [facility]): Yes Assessment/Plan Chief Complaint/Hosp Course 1. Abdominal pain, significant leukocytosis, CT with free air and contrast leak probably at anastomosis per radiology; s/p ascending colon adenocarcinoma status post laparoscopic right colectomy 04/30/17; Anastomotic leak mid staple line with open jaymie for about a 3 mm enterotomy with peritonitis and sepsis; WBC nl but bandemia worsened, LA improving; extubated; on pressor -IVF/supportive -N.p.o. -NG tube -IS -justin drain care -ice to abd wall -ambulate 2. 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 -eventual onc follow up 3. Esophagitis -Diet and lifestyle optimization -Antacids 4. Hemorrhoids -Dietary and lifestyle optimization 5. Gastritis -Diet and lifestyle optimization -Antacids 6. Anemia secondary to above -As above 7. Hx GI bleed, multifactorial, secondary to above. Stable -Monitor -As above Thank you. Patient seen and examined in collaboration with Dr. Jw Sheppard. Problems: Subjective 24 Hr Interval Summary Extubated today. Ostomy pink and moist. On Wilfrid- titrating down. JUSTIN's draining serosanguineous drainage. Incision site without drainage. Fever overnight. LA improving. No sob, congested cough, cp, palpitations, soto, dizziness, n/v/d/ dysuria. Exam/Review of Systems Vital Signs Vitals Vital Signs Date Time Temp Pulse Resp B/P Pulse Ox O2 Delivery O2 Flow Rate FiO2 05/09/17 14:00 110 19 101/57 100 Nasal Cannula 3.0 05/09/17 12:00 99.8 05/09/17 12:00 35 Intake and Output 05/08/17 05/08/17 05/09/17 15:00 23:00 07:00 Intake Total 1850 ml 1583.75 ml 2746.25 ml Output Total 490 ml 515 ml 241 ml Balance 1360 ml 1068.75 ml 2505.25 ml Exam Free Text/Dictation Constitutional: alert, oriented Psych: nl mood/affect and anxious Head: atraumatic, normocephalic Eyes: EOMI, PERRL, nl conjunctiva, No icteric ENMT: mucosa pink and somewhat dry, nl external ears & nose, nl lips & teeth; ng tube Neck: non-tender, supple, No jvd Respiratory: normal air movement, No congested cough, No labored breathing; extubated Cardiovascular: no regular rate and rhythm, No edema; ST Gastrointestinal: Tender diffusely with voluntary guarding Musculoskeletal: nl extremities to inspection, No joint tenderness, No range of motion; ileostomy pink and moist; midline incision site dry; upper justin serosanguineous, lower justin cloudy serous drainage Extremities: normal pulses, No calf tenderness, No cyanosis Neurological: nl mental status, nl speech, nl strength Skin: nl turgor, No diaphoresis, No rash or lesions Lymph: nl lymph nodes Results Result Diagram: 05/09/17 1100 05/09/17 0500 GERALDO SILVA NP May 09, 2017 14:34
[2017-05-09] MEDS: HYDROmorphONE 0.5 MG/0.5 ML SYG IV PRN (19:56)
[2017-05-09] MEDS: FLUCONAZOLE 400 MG/NS (PMX) 200 ML IVPB SCH (22:53)
[2017-05-10] VITALS (17 sets, daily range): BP systolic 113–142; BP diastolic 56–81; PULSE 97–106; RESP 20–36
[2017-05-10] MEDS: DEXTROSE 5%-0.45% NACL 1,000 ML IV SCH ×3 (00:25→21:39)
[2017-05-10] MEDS: HYDROmorphONE 0.5 MG/0.5 ML SYG IV PRN ×3 (02:15→15:56)
[2017-05-10] MEDS: MEROPENEM 500MG/50 ML (PMX) 50 ML IVPB SCH ×4 (05:37→23:40)
[2017-05-10 06:14] LABS: ABNORMAL IP MESSAGE 1; HEMATOCRIT 23.1 % (37.0-47.0); HEMOGLOBIN 7.1 g/dl (12.0-16.0); MEAN CORPUSCULAR HEMOGLOBIN 24.2 pg (29.0-33.0); MEAN CORPUSCULAR HGB CONC 30.7 g/dl (32.0-37.0); MEAN CORPUSCULAR VOLUME 78.8 fl (82.0-101.0); MEAN PLATELET VOLUME 9.1 fl (7.4-10.4); NUCLEATED RED BLOOD CELLS% 0.3 /100WBC (0.0-0.0); PLATELET COUNT 245 10^3/UL (140-415); RED BLOOD COUNT 2.93 10^6/ul (4.20-5.40); RED CELL DISTRIBUTION WIDTH 28.3 % (11.5-14.5); WHITE BLOOD COUNT 15.2 10^3/ul (4.8-10.8)
[2017-05-10 06:27] LABS: CALCIUM 7.7 mg/dl (8.4-10.2); CREATININE 0.82 mg/dl (0.44-1.00); MAGNESIUM 1.8 mg/dl (1.7-2.5)
[2017-05-10 06:40] LABS: POTASSIUM 2.9 mmol/L (3.5-5.1)
[2017-05-10 06:55] LABS: POSITIVE DIFF @See below
--- NOTE | 2017-05-10 08:02 | RADRPT ---
PROCEDURE: XR Chest. CLINICAL INDICATION: Shortness of breath. TECHNIQUE: Single frontal view. COMPARISON: 05/08/2017. FINDINGS: The endotracheal tube has been removed. The nasogastric tube tip is in the stomach and the right int ernal jugular vein catheter tip is in the mid superior vena cava. The heart is enlarged. There is atelectasis at the lung bases, unchanged. There are small bilateral pleural effusions. Contrast is present in the colon from a prior study. There is no pneumothorax. IMPRESSION: 1. Endotracheal tube removed. 2. No other change from the 05/08/2017 chest radiograph. RPTAT: QQ .Jefferson Greene MD, MD Date Time Electronically viewed and signed by .Jefferson Greene MD, MD on 05/10/2017 08:01 .R/
[2017-05-10 08:19] LABS: AADO2 Arterial 24.6 mmHg (7.0-24.0); Allen Test ACCEPTAB; Arterial Base Excess -1.9 mmol/L (-3.0-3); Arterial COHb 0.7 % (0.0-3.0); Arterial Fraction of Oxyhgb 98.3 % (93.0-99.0); Arterial HCO3 22.6 mmol/L (22.0-26.0); Arterial MetHb 0.1 % (0.0-1.5); Arterial Total Hemglobin 9.8 g/dl (12.0-18.0); MODE NASAL CANNULA
[2017-05-10] MEDS: FAMOTIDINE 20 MG INJ IV SCH (08:43)
[2017-05-10] MEDS: POTASSIUM CHLORIDE 30 MEQ in DEXTROSE 5% 250 ML IVPB SCH ×2 (08:43→11:47)
[2017-05-10 09:03] LABS: ANISOCYTOSIS 2+ (0-0); MONOCYTES % (M) 1 % (0-11); PLATELET ESTIMATE NORMAL; POIKILOCYTOSIS 3+ (0-0); POLYCHROMASIA 3+ (0-0)
--- NOTE | 2017-05-10 09:27 | CONS ---
Date/Time of Note Date/Time of Note DATE: 05/10/17 TIME: 09:25 Consult Date/Type/Reason Admit Date/Time May 07, 2017 at 20:57 Initial Consult Date 05/07/17 Type of Consultation: Pulmonary Ordering Provider: ANA GALLEGO MD Subjective Patient comfortable this morning. Awake alert. Requesting ice chips. Objective Vital Signs Date Time Temp Pulse Resp B/P Pulse Ox O2 Delivery O2 Flow Rate FiO2 05/10/17 08:00 101 05/10/17 08:00 99.3 21 123/59 100 Nasal Cannula 2.0 05/09/17 12:00 35 Intake and Output 05/09/17 05/09/17 05/10/17 15:00 23:00 07:00 Intake Total 1156.99 ml 700 ml 1150 ml Output Total 140 ml 380 ml 535 ml Balance 1016.99 ml 320 ml 615 ml Exam PHYSICAL EXAMINATION: GENERAL: Well-nourished, well-developed lady, comfortable at rest on nasal cannula. VITAL SIGNS: HEENT: Orally intubated. Dry mucous membranes. Pupils equal and reactive to light. CARDIAC EXAM: S1, S2, no added sounds or murmurs. CHEST: Diminished air entry bilaterally. ABDOMEN: Distended, no bowel sounds. EXTREMITIES: No cyanosis, clubbing. 1+ edema. NEUROLOGIC: Generalized weakness. I Results/Medications Result Diagram: 05/10/17 0530 05/10/17 0530 Results 24 hrs Laboratory Tests Test 05/09/17 11:00 05/09/17 11:45 05/09/17 18:49 05/10/17 05:30 Hemoglobin 7.8 L 7.1 L Hematocrit 26.0 L 23.1 L Lactic Acid Level 3.4 *H 2.0 Blood Gas Specimen Source Blood arterial Arterial Blood Date Drawn 05/09/2017 12:00:25 PM Arterial Blood pH (Temp corrected) 7.378 Arterial Blood pCO2 (Temp correct) 32.5 L Arterial Blood pO2 (Temp corrected) 137.3 H Arterial Blood HCO3 18.7 L Arterial Blood Base Excess -5.8 L Arterial Blood Oxygen Saturation 98.8 Raciel Test ACCEPTAB Arterial Blood Gas Puncture Site Left Radial Arterial Blood Carboxyhemoglobin 0.4 Arterial Blood Methemoglobin 0.3 Blood Gas A-a O2 Differential 110.5 H Oxyhemoglobin Percent 98.1 Total Hemoglobin 8.5 L Blood Gas Temperature 37.0 Blood Gas Modality VENT - CPAP FiO2 40.0 Blood Gas Low PEEP Setting 5.0 Blood Gas Pressure Support 10 Blood Gas Notified Whom [place] Blood Gas Notified Time 05/09/2017 12:05:40 PM White Blood Count 15.2 #H Red Blood Count 2.93 L Mean Corpuscular Volume 78.8 L Mean Corpuscular Hemoglobin 24.2 L Mean Corpuscular Hemoglobin Concent 30.7 L Red Cell Distribution Width 28.3 H Platelet Count 245 # Mean Platelet Volume 9.1 Neutrophils % Segmented Neutrophils % (Manual) 79 H Band Neutrophils % (Manual) 16 H Lymphocytes % Lymphocytes % (Manual) 4 L Monocytes % Monocytes % (Manual) 1 Eosinophils % Basophils % Nucleated Red Blood Cells % 0.3 H Neutrophils # Neutrophils # (Manual) 12.4 H Band Neutrophils # 2.4 H Absolute Lymphocytes (Manual) 0.6 L Lymphocytes # Monocytes # Absolute Monocytes (Manual) 0.1 L Eosinophils # Basophils # Nucleated Red Blood Cells # Platelet Estimate NORMAL Polychromasia 3+ Poikilocytosis 3+ Anisocytosis 2+ Macrocytosis 1+ Sodium Level 138 Potassium Level 2.9 *L Chloride Level 109 Carbon Dioxide Level 23 Anion Gap 9 Blood Urea Nitrogen 19 Creatinine 0.82 Glucose Level 102 Calcium Level 7.7 L Phosphorus Level 3.0 Magnesium Level 1.8 Test 05/10/17 07:00 Blood Gas Specimen Source Blood arterial Arterial Blood Date Drawn 05/10/2017 7:30:23 AM Arterial Blood pH (Temp corrected) 7.403 Arterial Blood pCO2 (Temp correct) 37.0 Arterial Blood pO2 (Temp corrected) 145.8 H Arterial Blood HCO3 22.6 Arterial Blood Base Excess -1.9 Arterial Blood Oxygen Saturation 99.1 Raciel Test ACCEPTAB Arterial Blood Gas Puncture Site Right Radial Arterial Blood Carboxyhemoglobin 0.7 Arterial Blood Methemoglobin 0.1 Blood Gas A-a O2 Differential 24.6 H Oxyhemoglobin Percent 98.3 Total Hemoglobin 9.8 L Blood Gas Temperature 37.0 Blood Gas Modality NASAL CANNULA FiO2 30.0 Blood Gas Notified Whom ZEN Blood Gas Notified Time 05/10/2017 8:18:54 AM Medications Current Medications Dextrose/Sodium Chloride (D5-1/2ns) 1,000 ml @ 100 mls/hr Q10H IV Last administered on 05/10/17t 00:25; Admin Dose 100 MLS/HR; Start 05/07/17 at 22: 02 Morphine Sulfate (morphine) 2 mg Q4H PRN IV PAIN LEVEL 7-10 Last administered on 05/08/17 22:47; Admin Dose 2 MG; Start 05/07/17 at 22:30 Lorazepam 1 mg 1 mg Q2H PRN IV ANXIETY Last administered on 05/08/17 18:01; Admin Dose 1 MG; Start 05/07/17 at 22:30 Fluconazole (Diflucan 400 Mg/ NS (Pmx)) 200 ml @ 100 mls/hr Q24H IVPB Last administered on 05/09/17 22:53; Admin Dose 100 MLS/HR; Start 05/07/17 at 23: 00 Hydromorphone HCl 0.5 mg 0.5 mg Q3H PRN IV PAIN Last administered on 07:31; Admin Dose 0.5 MG; Start 05/08/17 at 06:15 Ondansetron HCl/ Dextrose (Zofran Inj/D5W) 54 ml @ 108 mls/hr Q6H PRN IV NAUSEA AND/OR VOMITING Last administered on 05/09/17 12:35; Admin Dose 108 MLS /HR; Start 05/08/17 at 06:30 Famotidine 20 mg 20 mg Q12 IV Last administered on 05/10/17 08:43; Admin Dose 20 MG; Start 05/09/17 at 09:00 Phenylephrine HCl 40 mg/Dextrose 500 ml @ 75 mls/hr TITRATE IV Last administered on 05/08/17 22:19; Admin Dose 75 MLS/HR; Start 05/08/17 at 21:30 Meropenem/Sodium Chloride 50 ml @ 200 mls/hr Q8 IVPB Last administered on 05:37; Admin Dose 200 MLS/HR; Start 05/09/17 at 06:00 Potassium Chloride/Dextrose (KCl/D5W) 265 ml @ 88.333 mls/ hr Q3H IVPB Last administered on 05/10/17 08:43; Admin Dose 88.333 MLS/HR; Start 05/10/17 at 08:00; Stop 05/10/17 at 13:59 Assessment/Plan Chief Complaint/Hosp Course MPRESSION AND PLAN: 1. Anastomotic leak from recent bowel resection. 2. History of adenocarcinoma. 3. Severe sepsis, septic shock. 4. Status post repair of anastomotic leak and bowel washout. PLAN: 1. Continue broad-spectrum antibiotic coverage. Currently the patient is on meropenem and vancomycin. 2. Monitor BPs 3. IV fluids. 4. Incentive spirometry 5. DVT and GI prophylaxis. 6. PT eval encourage out of bed Transfer to telemetry or MedSurg Problems: ANAYA BRUSH MD, [facility] May 10, 2017 09:27
[2017-05-10] MEDS ORDERED: VANCOMYCIN 1 GM in NS 250 ML IVPB SCH (10:00)
--- NOTE | 2017-05-10 11:14 | PN ---
Date/Time of Note Date/Time of Note DATE: 05/10/17 TIME: 11:09 Assessment/Plan Lines/Catheters IV Catheter Type (from [facility]): Central Line Aguilar in Place (from [facility]): Yes Assessment/Plan Chief Complaint/Hosp Course 1. Abdominal pain, significant leukocytosis, CT with free air and contrast leak at anastomosis with resultant peritonitis and sepsis; s/p ascending colon adenocarcinoma status post laparoscopic right colectomy 04/30/17; Anastomotic leak mid staple line with open jaymie for about a 3 mm enterotomy with peritonitis and sepsis; LA resolved; extubated; Pressor held. Bowel function. -IVF/supportive -IS -justin drain care -ice to abd wall -ambulate -d/c ngt and start clears 2. 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 -onc follow up 3. Esophagitis -Diet and lifestyle optimization -Antacids 4. Hemorrhoids -Dietary and lifestyle optimization 5. Gastritis -Diet and lifestyle optimization -Antacids 6. Anemia secondary to above -As above 7. Hx GI bleed, multifactorial, secondary to above. Stable -Monitor -As above Thank you, Problems: Subjective 24 Hr Interval Summary Bandemia improved. Ostomy pink and moist. Gas and stool in bag. Min ngt output. Pressor off. Hg stable. JUSTIN's draining serosanguineous drainage. Incision site without drainage. Fevers improved. LA resolved. No sob, congested cough, cp, palpitations, soto, dizziness, n/v/d/dysuria. Exam/Review of Systems Vital Signs Vitals Vital Signs Date Time Temp Pulse Resp B/P Pulse Ox O2 Delivery O2 Flow Rate FiO2 05/10/17 12:00 97 05/10/17 11:00 21 127/63 100 Nasal Cannula 2.0 05/10/17 08:00 99.3 05/09/17 12:00 35 Intake and Output 05/09/17 05/09/17 05/10/17 15:00 23:00 07:00 Intake Total 1156.99 ml 700 ml 1150 ml Output Total 140 ml 380 ml 535 ml Balance 1016.99 ml 320 ml 615 ml Exam Free Text/Dictation Constitutional: alert, oriented Psych: nl mood/affect and anxious Head: atraumatic, normocephalic Eyes: EOMI, PERRL, nl conjunctiva, No icteric ENMT: mucosa pink and somewhat dry, nl external ears & nose, nl lips & teeth; ng tube Neck: non-tender, supple, No jvd Respiratory: normal air movement, No congested cough, No labored breathing; extubated Cardiovascular: no regular rate and rhythm, No edema; ST Gastrointestinal: Min tender. No erythema. No dc. Ileostomy pink and moist with gas/stool; midline incision site dry; upper justin serosanguineous, lower justin serous drainage Musculoskeletal: nl extremities to inspection, No joint tenderness, Min range of motion. Extremities: normal pulses, No calf tenderness, No cyanosis Neurological: nl mental status, nl speech, nl strength Skin: nl turgor, No diaphoresis, No rash or lesions Lymph: nl lymph nodes Results Result Diagram: 05/10/17 0530 05/10/17 0530 MICHELLE BOURNE MD May 10, 2017 11:14
--- NOTE | 2017-05-10 12:09 | PN ---
Date/Time of Note Date/Time of Note DATE: 05/10/17 TIME: 12:05 Assessment/Plan VTE Prophylaxis VTE Prophylaxis Intervention: SCD's Lines/Catheters IV Catheter Type (from Nrsg): Central Line Central line still needed: No (will dc) Urinary Cath still in place: Yes Reason Cath still needed: other (indicate) (will dc) Assessment/Plan Assessment/Plan 81-year-old female with recent R colectomy 11.3 for colon ca presented with abd pain, found to have sepsis from anastomotic leak warranting surgical repair which pt underwent 11.1. #anastomotic leak with resultant peritonitis causing sepsis -cont meropenem. Will narrow abx pending further culture data -stop fluc as no fungal pathogens isolated from peritoneal fluid. Stop vanc as no MRSA isolated -drain management as per surgery #pulmonary fibrosis: as per pulm #h/o esophagitis and gastritis: cont home h2b #colon ca: outpatient onc f/u PO status as per gen surg Exam/Review of Systems Vital Signs Vitals Vital Signs Date Time Temp Pulse Resp B/P Pulse Ox O2 Delivery O2 Flow Rate FiO2 05/10/17 11:00 103 21 127/63 100 Nasal Cannula 2.0 05/10/17 08:00 99.3 05/09/17 12:00 35 Intake and Output 05/09/17 05/09/17 05/10/17 15:00 23:00 07:00 Intake Total 1156.99 ml 700 ml 1150 ml Output Total 140 ml 380 ml 535 ml Balance 1016.99 ml 320 ml 615 ml Results Result Diagram: 05/10/17 0530 05/10/17 0530 Results 24 hrs Laboratory Tests Test 05/09/17 18:49 05/10/17 05:30 05/10/17 07:00 Lactic Acid Level 2.0 White Blood Count 15.2 #H Red Blood Count 2.93 L Hemoglobin 7.1 L Hematocrit 23.1 L Mean Corpuscular Volume 78.8 L Mean Corpuscular Hemoglobin 24.2 L Mean Corpuscular Hemoglobin Concent 30.7 L Red Cell Distribution Width 28.3 H Platelet Count 245 # Mean Platelet Volume 9.1 Neutrophils % Segmented Neutrophils % (Manual) 79 H Band Neutrophils % (Manual) 16 H Lymphocytes % Lymphocytes % (Manual) 4 L Monocytes % Monocytes % (Manual) 1 Eosinophils % Basophils % Nucleated Red Blood Cells % 0.3 H Neutrophils # Neutrophils # (Manual) 12.4 H Band Neutrophils # 2.4 H Absolute Lymphocytes (Manual) 0.6 L Lymphocytes # Monocytes # Absolute Monocytes (Manual) 0.1 L Eosinophils # Basophils # Nucleated Red Blood Cells # Platelet Estimate NORMAL Polychromasia 3+ Poikilocytosis 3+ Anisocytosis 2+ Macrocytosis 1+ Sodium Level 138 Potassium Level 2.9 *L Chloride Level 109 Carbon Dioxide Level 23 Anion Gap 9 Blood Urea Nitrogen 19 Creatinine 0.82 Glucose Level 102 Calcium Level 7.7 L Phosphorus Level 3.0 Magnesium Level 1.8 Blood Gas Specimen Source Blood arterial Arterial Blood Date Drawn 05/10/2017 7:30:23 AM Arterial Blood pH (Temp corrected) 7.403 Arterial Blood pCO2 (Temp correct) 37.0 Arterial Blood pO2 (Temp corrected) 145.8 H Arterial Blood HCO3 22.6 Arterial Blood Base Excess -1.9 Arterial Blood Oxygen Saturation 99.1 Raciel Test ACCEPTAB Arterial Blood Gas Puncture Site Right Radial Arterial Blood Carboxyhemoglobin 0.7 Arterial Blood Methemoglobin 0.1 Blood Gas A-a O2 Differential 24.6 H Oxyhemoglobin Percent 98.3 Total Hemoglobin 9.8 L Blood Gas Temperature 37.0 Blood Gas Modality NASAL CANNULA FiO2 30.0 Blood Gas Notified Whom JLD Blood Gas Notified Time 05/10/2017 8:18:54 AM Medications Medications Current Medications Dextrose/Sodium Chloride (D5-1/2ns) 1,000 ml @ 100 mls/hr Q10H IV Last administered on 05/10/17 00:25; Admin Dose 100 MLS/HR; Start 05/07/17 at 22: 02 Morphine Sulfate (morphine) 2 mg Q4H PRN IV PAIN LEVEL 7-10 Last administered on 05/08/17 22:47; Admin Dose 2 MG; Start 05/07/17 at 22:30 Lorazepam 1 mg 1 mg Q2H PRN IV ANXIETY Last administered on 05/08/17 18:01; Admin Dose 1 MG; Start 05/07/17 at 22:30 Fluconazole (Diflucan 400 Mg/ NS (Pmx)) 200 ml @ 100 mls/hr Q24H IVPB Last administered on 05/09/17 22:53; Admin Dose 100 MLS/HR; Start 05/07/17 at 23: 00 Hydromorphone HCl 0.5 mg 0.5 mg Q3H PRN IV PAIN Last administered on 07:31; Admin Dose 0.5 MG; Start 05/08/17 at 06:15 Ondansetron HCl 8 mg/Dextrose 54 ml @ 108 mls/hr Q6H PRN IV NAUSEA AND/OR VOMITING Last administered on 05/09/17 12:35; Admin Dose 108 MLS/HR; Start at 06:30 Meropenem/Sodium Chloride 50 ml @ 200 mls/hr Q8 IVPB Last administered on 05:37; Admin Dose 200 MLS/HR; Start 05/09/17 at 06:00 Potassium Chloride/Dextrose (KCl/D5W) 265 ml @ 88.333 mls/ hr Q3H IVPB Last administered on 05/10/17 11:47; Admin Dose 88.333 MLS/HR; Start 05/10/17 at 08:00; Stop 05/10/17 at 13:59 BRO CHAU MD May 10, 2017 12:09
[2017-05-10] MEDS: FAMOTIDINE 20 MG TAB PO SCH (21:40)
[2017-05-11] MEDS: ALBUTEROL/IPRATROPIUM (NEB) 3 ML AMP NEB PRN (01:56)
[2017-05-11] MEDS: LORAZEPAM 2 MG INJ IV PRN (02:15)
[2017-05-11 02:29] VITALS: BP 149/70; RESP 20
[2017-05-11] MEDS: DEXTROSE 5%-0.45% NACL 1,000 ML IV SCH ×3 (05:27→20:13)
[2017-05-11 06:04] LABS: ABNORMAL IP MESSAGE 1; HEMATOCRIT 24.6 % (37.0-47.0); HEMOGLOBIN 7.4 g/dl (12.0-16.0); MEAN CORPUSCULAR HEMOGLOBIN 23.6 pg (29.0-33.0); MEAN CORPUSCULAR HGB CONC 30.1 g/dl (32.0-37.0); MEAN CORPUSCULAR VOLUME 78.6 fl (82.0-101.0); MEAN PLATELET VOLUME 9.7 fl (7.4-10.4); PLATELET COUNT 177 10^3/UL (140-415); RED BLOOD COUNT 3.13 10^6/ul (4.20-5.40); RED CELL DISTRIBUTION WIDTH 27.9 % (11.5-14.5); WHITE BLOOD COUNT 14.7 10^3/ul (4.8-10.8)
[2017-05-11 06:20] LABS: POSITIVE DIFF @See below
[2017-05-11 06:37] LABS: CALCIUM 8.2 mg/dl (8.4-10.2); CREATININE 0.6 mg/dl (0.44-1.00); POTASSIUM 3.1 mmol/L (3.5-5.1)
[2017-05-11] MEDS: MEROPENEM 500MG/50 ML (PMX) 50 ML IVPB SCH ×2 (06:49→13:55)
[2017-05-11 08:30] VITALS: BP 147/32; RESP 20
[2017-05-11] MEDS: FAMOTIDINE 20 MG TAB PO SCH ×2 (11:20→20:13)
[2017-05-11] MEDS: ONDANSETRON INJ 8 MG in DEXTROSE 5% 50 ML IV PRN (12:53)
[2017-05-11 14:19] VITALS: BP 169/73; PULSE 84; RESP 16
[2017-05-11] MEDS ORDERED: POTASSIUM CHLORIDE 250 ML IVPB ONE (14:30)
[2017-05-11] MEDS: HYDROmorphONE 0.5 MG/0.5 ML SYG IV PRN ×2 (15:02→22:30)
--- NOTE | 2017-05-11 16:34 | PN ---
Date/Time of Note Date/Time of Note DATE: 05/11/17 TIME: 16:30 Assessment/Plan VTE Prophylaxis VTE Prophylaxis Intervention: SCD's Lines/Catheters IV Catheter Type (from Nrs): Peripheral IV Urinary Cath still in place: No Assessment/Plan Assessment/Plan 81-year-old female with recent R colectomy 11.3 for colon ca presented with abd pain, found to have sepsis from anastomotic leak warranting surgical repair which pt underwent 05.08. #anastomotic leak with resultant peritonitis causing sepsis -narrow abx to levo/amp given culture results. anticipate 10 days of abx. likely will need a few days of abx once drains are pulled -drain management as per surgery #pulmonary fibrosis: as per pulm #h/o esophagitis and gastritis: cont home h2b #colon ca: outpatient onc f/u PO status as per gen surg Exam/Review of Systems Vital Signs Vitals Vital Signs Date Time Temp Pulse Resp B/P Pulse Ox O2 Delivery O2 Flow Rate FiO2 05/11/17 15:25 2.0 05/11/17 14:19 97.5 84 16 169/73 94 Room Air 05/09/17 12:00 35 Intake and Output 05/10/17 05/10/17 05/11/17 15:00 23:00 07:00 Intake Total 1275 ml 100 ml 1300 ml Output Total 300 ml 80 ml 1080 ml Balance 975 ml 20 ml 220 ml Results Result Diagram: 05/11/17 0457 05/11/17 0457 Results 24 hrs Laboratory Tests Test 05/11/17 04:57 White Blood Count 14.7 H Red Blood Count 3.13 L Hemoglobin 7.4 L Hematocrit 24.6 L Mean Corpuscular Volume 78.6 L Mean Corpuscular Hemoglobin 23.6 L Mean Corpuscular Hemoglobin Concent 30.1 L Red Cell Distribution Width 27.9 H Platelet Count 177 # Mean Platelet Volume 9.7 Neutrophils % Lymphocytes % Monocytes % Eosinophils % Basophils % Nucleated Red Blood Cells % 0.0 Neutrophils # Lymphocytes # Monocytes # Eosinophils # Basophils # Nucleated Red Blood Cells # Sodium Level 137 Potassium Level 3.1 L Chloride Level 107 Carbon Dioxide Level 27 Anion Gap 6 L Blood Urea Nitrogen 11 Creatinine 0.60 Glucose Level 110 Calcium Level 8.2 L Medications Medications Current Medications Dextrose/Sodium Chloride (D5-1/2ns) 1,000 ml @ 100 mls/hr Q10H IV Last administered on 05/11/17 05:27; Admin Dose 100 MLS/HR; Start 05/07/17 at 22: 02 Morphine Sulfate (morphine) 2 mg Q4H PRN IV PAIN LEVEL 7-10 Last administered on 05/08/17 22:47; Admin Dose 2 MG; Start 05/07/17 at 22:30 Lorazepam (Ativan) 1 mg Q2H PRN IV ANXIETY Last administered on 05/11/17 02: 15; Admin Dose 1 MG; Start 05/07/17 at 22:30 Hydromorphone HCl 0.5 mg 0.5 mg Q3H PRN IV PAIN Last administered on 15:02; Admin Dose 0.5 MG; Start 05/08/17 at 06:15 Ondansetron HCl 8 mg/Dextrose 54 ml @ 108 mls/hr Q6H PRN IV NAUSEA AND/OR VOMITING Last administered on 05/11/17 12:53; Admin Dose 108 MLS/HR; Start at 06:30 Meropenem/Sodium Chloride (Merrem 500mg/50 ml(Pmx)) 50 ml @ 200 mls/hr Q8 IVPB Last administered on 05/11/17 13:55; Admin Dose 200 MLS/HR; Start 05/09/17 at 06:00 Famotidine 20 mg 20 mg BID PO Last administered on 05/11/17 11:20; Admin Dose 20 MG; Start 05/10/17 at 21:00 Potassium Chloride (KCl 40 MEQ/250 ML NS) 250 ml @ 62.5 mls/hr ONCE ONCE IVPB Last administered on 05/11/17 16:10; Admin Dose 62.5 MLS/HR; Start at 14:30; Stop 05/11/17 at 18:29 BRO CHAU MD May 11, 2017 16:34
[2017-05-11] MEDS: AMPICILLIN 500 MG in SOD CHLORIDE 0.9% 50 ML IVPB SCH (17:58)
--- NOTE | 2017-05-11 18:28 | PN ---
Date/Time of Note Date/Time of Note DATE: 05/11/17 TIME: 18:26 Assessment/Plan Lines/Catheters IV Catheter Type (from [facility]): Peripheral IV Aguilar in Place (from [facility]): No Assessment/Plan Chief Complaint/Hosp Course 1. Abdominal pain, significant leukocytosis, CT with free air and contrast leak at anastomosis with resultant peritonitis and sepsis; s/p ascending colon adenocarcinoma status post laparoscopic right colectomy 04/30/17; Anastomotic leak mid staple line with open jaymie for about a 3 mm enterotomy with peritonitis and sepsis; Improved. Bowel function. -IVF/supportive -IS -justin drain care -ice to abd wall -ambulate -slow diet advance as tolerated 2. 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 -onc follow up 3. Esophagitis -Diet and lifestyle optimization -Antacids 4. Hemorrhoids -Dietary and lifestyle optimization 5. Gastritis -Diet and lifestyle optimization -Antacids 6. Anemia secondary to above -As above 7. Hx GI bleed, multifactorial, secondary to above. Stable -Monitor -As above Thank you, Problems: Subjective 24 Hr Interval Summary Leukocytosis slowly improving. Ostomy pink and moist. Gas and liquid stool in bag. Nausea today without vomiting. Hg stable. JUSTIN's draining serosanguineous drainage. Incision site without drainage. No fevers or chills. No sob, congested cough, cp, palpitations, soto, dizziness, dysuria. Exam/Review of Systems Vital Signs Vitals Vital Signs Date Time Temp Pulse Resp B/P Pulse Ox O2 Delivery O2 Flow Rate FiO2 05/11/17 15:25 2.0 05/11/17 14:19 97.5 84 16 169/73 94 Room Air 05/09/17 12:00 35 Intake and Output 05/10/17 05/10/17 05/11/17 14:59 22:59 06:59 Intake Total 1375 ml 100 ml 1250 ml Output Total 330 ml 80 ml 1080 ml Balance 1045 ml 20 ml 170 ml Exam Free Text/Dictation Constitutional: alert, oriented Psych: nl mood/affect and anxious Head: atraumatic, normocephalic Eyes: EOMI, PERRL, nl conjunctiva, No icteric ENMT: mucosa pink and somewhat dry, nl external ears & nose, nl lips & teeth; ng tube Neck: non-tender, supple, No jvd Respiratory: normal air movement, No congested cough, No labored breathing; extubated Cardiovascular: no regular rate and rhythm, No edema; ST Gastrointestinal: Min tender. No erythema. No dc. Ileostomy pink and moist with gas/stool; midline incision site dry; upper justin serosanguineous, lower justin serous drainage Musculoskeletal: nl extremities to inspection, No joint tenderness, Min range of motion. Extremities: normal pulses, No calf tenderness, No cyanosis Neurological: nl mental status, nl speech, nl strength Skin: nl turgor, No diaphoresis, No rash or lesions Lymph: nl lymph nodes Results Result Diagram: 05/11/17 0457 05/11/17 0457 MICHELLE BOURNE MD May 11, 2017 18:28
[2017-05-11 21:00] VITALS: BP 149/73; PULSE 79; RESP 17
[2017-05-12] MEDS: AMPICILLIN 500 MG in SOD CHLORIDE 0.9% 50 ML IVPB SCH ×5 (00:06→23:46)
[2017-05-12 00:49] VITALS: BP_SYST 105; BP_SYST 149; BP_DIAS 63; BP_DIAS 73; RESP 18
[2017-05-12] MEDS: LEVOFLOXACIN 750 MG TABLET NGT SCH (05:43)
[2017-05-12] MEDS: DEXTROSE 5%-0.45% NACL 1,000 ML IV SCH (05:52)
[2017-05-12 05:59] LABS: ABNORMAL IP MESSAGE 1; BASOPHILS % 0.2 % (0.0-2.0); EOSINOPHILS # 0.1 10^3/ul (0.0-0.5); EOSINOPHILS % 1.2 % (0.0-7.0); HEMATOCRIT 26.3 % (37.0-47.0); HEMOGLOBIN 8.1 g/dl (12.0-16.0); LYMPHOCYTES # 0.9 10^3/ul (0.8-2.9); MEAN CORPUSCULAR HEMOGLOBIN 23.8 pg (29.0-33.0); MEAN CORPUSCULAR HGB CONC 30.8 g/dl (32.0-37.0); MEAN CORPUSCULAR VOLUME 77.4 fl (82.0-101.0); MEAN PLATELET VOLUME 10.6 fl (7.4-10.4); MONOCYTE # 1.3 10^3/ul (0.3-0.9); MONOCYTES % 11.8 % (0.0-11.0); NEUTROPHIL # 8.3 10^3/ul (1.6-7.5); NEUTROPHILS % 77.8 % (39.0-77.0); PLATELET COUNT 158 10^3/UL (140-415); RED CELL DISTRIBUTION WIDTH 27.4 % (11.5-14.5); WHITE BLOOD COUNT 10.7 10^3/ul (4.8-10.8)
[2017-05-12 06:06] LABS: POSITIVE DIFF @See below
[2017-05-12 06:26] LABS: CALCIUM 7.9 mg/dl (8.4-10.2); CREATININE 0.57 mg/dl (0.44-1.00)
[2017-05-12] MEDS: HYDROmorphONE 0.5 MG/0.5 ML SYG IV PRN ×3 (06:46→20:00)
[2017-05-12 07:24] VITALS: BP 157/69; RESP 20
[2017-05-12] MEDS: FAMOTIDINE 20 MG TAB PO SCH ×2 (08:28→20:00)
[2017-05-12] MEDS ORDERED: POTASSIUM CHLORIDE 20 MEQ POWDER FOR ORAL SOLN PO ONE (10:30)
--- NOTE | 2017-05-12 11:01 | PN ---
Date/Time of Note Date/Time of Note DATE: 05/12/17 TIME: 10:59 Assessment/Plan Lines/Catheters IV Catheter Type (from [facility]): Peripheral IV Aguilar in Place (from [facility]): No Assessment/Plan Chief Complaint/Hosp Course 1. Abdominal pain, significant leukocytosis, CT with free air and contrast leak at anastomosis with resultant peritonitis and sepsis; s/p ascending colon adenocarcinoma status post laparoscopic right colectomy 04/30/17; Anastomotic leak mid staple line with open jaymie for about a 3 mm enterotomy with peritonitis and sepsis; Improved. Bowel function. -abx -IVF/supportive -IS -justin drain care -ice to abd wall -ambulate/PT -diet 2. 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 -onc follow up as outpt 3. Esophagitis -Diet and lifestyle optimization -Antacids 4. Hemorrhoids -Dietary and lifestyle optimization 5. Gastritis -Diet and lifestyle optimization -Antacids 6. Anemia secondary to above -As above 7. Hx GI bleed, multifactorial, secondary to above. Stable -Monitor -As above Thank you, Problems: Subjective 24 Hr Interval Summary Leukocytosis resolved. Ostomy pink and moist. Gas and liquid stool in bag. No n/v. On clears. Hg stable. JUSTIN's draining serosanguineous drainage. Incision site without drainage. No fevers or chills. No sob, congested cough, cp, palpitations, soto, dizziness, dysuria. Exam/Review of Systems Vital Signs Vitals Vital Signs Date Time Temp Pulse Resp B/P Pulse Ox O2 Delivery O2 Flow Rate FiO2 05/12/17 08:06 Nasal Cannula 2.0 05/12/17 07:24 97.6 81 20 157/69 96 05/09/17 12:00 35 Intake and Output 05/11/17 05/11/17 05/12/17 15:00 23:00 07:00 Intake Total 104 ml 1780.0 ml 1200 ml Output Total 690 ml 1000 ml Balance 104 ml 1090.0 ml 200 ml Exam Free Text/Dictation Constitutional: alert, oriented Psych: nl mood/affect and anxious Head: atraumatic, normocephalic Eyes: EOMI, PERRL, nl conjunctiva, No icteric ENMT: mucosa pink and somewhat dry, nl external ears & nose, nl lips & teeth; ng tube Neck: non-tender, supple, No jvd Respiratory: normal air movement, No congested cough, No labored breathing; extubated Cardiovascular: no regular rate and rhythm, No edema; ST Gastrointestinal: Min tender. No erythema. No dc. Ileostomy pink and moist with gas/stool; midline incision site dry; upper justin serosanguineous, lower justin serous drainage Musculoskeletal: nl extremities to inspection, No joint tenderness, Min range of motion. Extremities: normal pulses, No calf tenderness, No cyanosis Neurological: nl mental status, nl speech, nl strength Skin: nl turgor, No diaphoresis, No rash or lesions Lymph: nl lymph nodes Results Result Diagram: 05/12/17 0506 05/12/17 0506 MICHELLE BOURNE MD May 12, 2017 11:01
--- NOTE | 2017-05-12 12:37 | PN ---
Date/Time of Note Date/Time of Note DATE: 05/12/17 TIME: 12:34 Assessment/Plan VTE Prophylaxis VTE Prophylaxis Intervention: SCD's Lines/Catheters IV Catheter Type (from Nrs): Peripheral IV Urinary Cath still in place: No Assessment/Plan Assessment/Plan 81-year-old female with recent R colectomy 11.3 for colon ca presented with abd pain, found to have sepsis from anastomotic leak warranting surgical repair which pt underwent 05.08. #anastomotic leak with resultant peritonitis causing sepsis -narrowed abx to levo/amp given culture results. talked to general surgeon, he advised 10-14 days abx given bowel perforation -drain management as per surgery #pulmonary fibrosis: as per pulm #h/o esophagitis and gastritis: cont home h2b #colon ca: outpatient onc f/u PO status as per gen surg CM consult for SNF v HH Subjective 24 Hr Interval Summary Free Text/Dictation reportedly had a BM Exam/Review of Systems Vital Signs Vitals Vital Signs Date Time Temp Pulse Resp B/P Pulse Ox O2 Delivery O2 Flow Rate FiO2 05/12/17 08:06 Nasal Cannula 2.0 05/12/17 07:24 97.6 81 20 157/69 96 05/09/17 12:00 35 Intake and Output 05/11/17 05/11/17 05/12/17 14:59 22:59 06:59 Intake Total 154 ml 1780.0 ml 1200 ml Output Total 690 ml 1000 ml Balance 154 ml 1090.0 ml 200 ml Exam nad no mrg lungs clear ALTAGRACIA drains in place x 2, ostomy pink no edema Results Result Diagram: 05/12/17 0506 05/12/17 0506 Results 24 hrs Laboratory Tests Test 05/12/17 05:06 White Blood Count 10.7 # Red Blood Count 3.40 L Hemoglobin 8.1 L Hematocrit 26.3 L Mean Corpuscular Volume 77.4 L Mean Corpuscular Hemoglobin 23.8 L Mean Corpuscular Hemoglobin Concent 30.8 L Red Cell Distribution Width 27.4 H Platelet Count 158 Mean Platelet Volume 10.6 H Neutrophils % 77.8 H Lymphocytes % 8.0 L Monocytes % 11.8 H Eosinophils % 1.2 Basophils % 0.2 Nucleated Red Blood Cells % 0.0 Neutrophils # 8.3 H Lymphocytes # 0.9 Monocytes # 1.3 H Eosinophils # 0.1 Basophils # 0.0 Nucleated Red Blood Cells # 0.0 Sodium Level 138 Potassium Level 3.0 L Chloride Level 102 Carbon Dioxide Level 32 H Anion Gap 7 L Blood Urea Nitrogen 7 Creatinine 0.57 Glucose Level 117 Calcium Level 7.9 L Medications Medications Current Medications Dextrose/Sodium Chloride (D5-1/2ns) 1,000 ml @ 100 mls/hr Q10H IV Last administered on 05/12/17 05:52; Admin Dose 100 MLS/HR; Start 05/07/17 at 22: 02 Morphine Sulfate (morphine) 2 mg Q4H PRN IV PAIN LEVEL 7-10 Last administered on 05/08/17 22:47; Admin Dose 2 MG; Start 05/07/17 at 22:30 Lorazepam (Ativan) 1 mg Q2H PRN IV ANXIETY Last administered on 05/11/17 02: 15; Admin Dose 1 MG; Start 05/07/17 at 22:30 Hydromorphone HCl 0.5 mg 0.5 mg Q3H PRN IV PAIN Last administered on 06:46; Admin Dose 0.5 MG; Start 05/08/17 at 06:15 Ondansetron HCl/ Dextrose (Zofran Inj/D5W) 54 ml @ 108 mls/hr Q6H PRN IV NAUSEA AND/OR VOMITING Last administered on 05/11/17 12:53; Admin Dose 108 MLS /HR; Start 05/08/17 at 06:30 Famotidine (Pepcid) 20 mg BID PO Last administered on 05/12/17 08:28; Admin Dose 20 MG; Start 05/10/17 at 21:00 Levofloxacin 750 mg 750 mg Q48H NGT Last administered on 05/12/17 05:43; Admin Dose 750 MG; Start 05/12/17 at 06:00 Ampicillin/Sodium Chloride (Ampicillin/NS) 50 ml @ 100 mls/hr Q6 IVPB Last administered on 05/12/17 11:22; Admin Dose 100 MLS/HR; Start 05/11/17 at 18: 00 BRO CHAU MD May 12, 2017 12:37
[2017-05-12 14:46] VITALS: BP 145/67; RESP 20
[2017-05-12 20:45] VITALS: BP 130/60; RESP 20
[2017-05-12] MEDS: ALBUTEROL/IPRATROPIUM (NEB) 3 ML AMP NEB PRN (21:30)
[2017-05-13] MEDS: HYDROCODONE/APAP (10/325) TAB PO PRN ×2 (00:02→11:13)
[2017-05-13 02:41] VITALS: BP 136/65; RESP 20
[2017-05-13 05:35] LABS: ABNORMAL IP MESSAGE 1; BASOPHILS % 0.5 % (0.0-2.0); EOSINOPHILS # 0.1 10^3/ul (0.0-0.5); EOSINOPHILS % 1.4 % (0.0-7.0); HEMATOCRIT 24.1 % (37.0-47.0); HEMOGLOBIN 7.5 g/dl (12.0-16.0); LYMPHOCYTES # 0.8 10^3/ul (0.8-2.9); LYMPHOCYTES % 9.9 % (15.0-51.0); MEAN CORPUSCULAR HEMOGLOBIN 23.9 pg (29.0-33.0); MEAN CORPUSCULAR HGB CONC 31.1 g/dl (32.0-37.0); MEAN CORPUSCULAR VOLUME 76.8 fl (82.0-101.0); MEAN PLATELET VOLUME 9.5 fl (7.4-10.4); MONOCYTE # 1.2 10^3/ul (0.3-0.9); MONOCYTES % 14.5 % (0.0-11.0); NEUTROPHIL # 5.8 10^3/ul (1.6-7.5); NEUTROPHILS % 72.3 % (39.0-77.0); PLATELET COUNT 218 10^3/UL (140-415); RED BLOOD COUNT 3.14 10^6/ul (4.20-5.40); RED CELL DISTRIBUTION WIDTH 26.5 % (11.5-14.5)
[2017-05-13 05:37] LABS: POSITIVE DIFF @See below
[2017-05-13 06:04] LABS: CALCIUM 7.8 mg/dl (8.4-10.2); CREATININE 0.57 mg/dl (0.44-1.00); POTASSIUM 3.4 mmol/L (3.5-5.1)
[2017-05-13] MEDS: AMPICILLIN 500 MG in SOD CHLORIDE 0.9% 50 ML IVPB SCH ×4 (06:38→23:38)
[2017-05-13 07:25] VITALS: BP 151/63; RESP 19
[2017-05-13] MEDS: FAMOTIDINE 20 MG TAB PO SCH ×2 (07:51→19:57)
[2017-05-13] MEDS: morphine 2 MG INJ IV PRN ×3 (07:52→21:01)
--- NOTE | 2017-05-13 11:43 | PN ---
Date/Time of Note Date/Time of Note DATE: 05/13/17 TIME: 11:30 Assessment/Plan Lines/Catheters IV Catheter Type (from [facility]): Saline Lock Aguilar in Place (from [facility]): No Assessment/Plan Chief Complaint/Hosp Course 1. Abdominal pain, significant leukocytosis, CT with free air and contrast leak at anastomosis with resultant peritonitis and sepsis; s/p ascending colon adenocarcinoma status post laparoscopic right colectomy 04/30/17; Anastomotic leak mid staple line with open jaymie for about a 3 mm enterotomy with peritonitis and sepsis; Improved. Bowel function. -abx -IVF/supportive -IS -justin drain care -ice to abd wall -ambulate/PT 2. 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 -onc follow up as outpt 3. Esophagitis -Diet and lifestyle optimization -Antacids 4. Hemorrhoids -Dietary and lifestyle optimization 5. Gastritis -Diet and lifestyle optimization -Antacids 6. Anemia secondary to above -As above 7. Hx GI bleed, multifactorial, secondary to above. Stable -Monitor -As above -will recheck h/h Thank you. Patient seen and examined in collaboration with Dr. Jw Sheppard. Problems: Subjective 24 Hr Interval Summary Feels well. Tolerating solid diet. No fevers, chills, sob, congested cough, cp, palpitations, soto, dizziness, n/v/d/dysuria. Ostomy pink. Drains with serous and serosanguineous drainage. Exam/Review of Systems Vital Signs Vitals Vital Signs Date Time Temp Pulse Resp B/P Pulse Ox O2 Delivery O2 Flow Rate FiO2 05/13/17 07:25 98.0 81 19 151/63 98 05/13/17 01:18 2.0 05/12/17 21:30 Nasal Cannula 05/09/17 12:00 35 Intake and Output 05/12/17 05/12/17 05/13/17 15:00 23:00 07:00 Intake Total 100 ml 1610 ml 770 ml Output Total 110 ml 1680 ml 1260 ml Balance -10 ml -70 ml -490 ml Exam Free Text/Dictation Constitutional: alert, oriented Psych: nl mood/affect and anxious Head: atraumatic, normocephalic Eyes: EOMI, PERRL, nl conjunctiva, No icteric ENMT: mucosa pink and somewhat dry, nl external ears & nose, nl lips & teeth; ng tube Neck: non-tender, supple, No jvd Respiratory: normal air movement, No congested cough, No labored breathing; extubated Cardiovascular: no regular rate and rhythm, No edema; ST Gastrointestinal: Min tender. No erythema/drainage/bruising. No dc. Ileostomy pink and moist with gas/stool; midline incision site dry; upper justin serosanguineous, lower justin serous drainage Musculoskeletal: nl extremities to inspection, No joint tenderness, Min range of motion. Extremities: normal pulses, No calf tenderness, No cyanosis Neurological: nl mental status, nl speech, nl strength Skin: nl turgor, No diaphoresis, No rash or lesions Lymph: nl lymph nodes Results Result Diagram: 05/13/17 0457 05/13/17 0457 GERALDO SILVA NP May 13, 2017 11:43
--- NOTE | 2017-05-13 13:09 | PN ---
Date/Time of Note Date/Time of Note DATE: 05/13/17 TIME: 13:05 Assessment/Plan VTE Prophylaxis VTE Prophylaxis Intervention: SCD's Lines/Catheters IV Catheter Type (from [facility]): Saline Lock Urinary Cath still in place: No Assessment/Plan Assessment/Plan 81-year-old female with recent R colectomy 11.3 for colon ca presented with abd pain, found to have sepsis from anastomotic leak warranting surgical repair which pt underwent 05.08. #anastomotic leak with resultant peritonitis causing sepsis -narrowed abx to levo/amp given culture results. talked to general surgeon, he advised 10-14 days abx given bowel perforation. End of therapy 11.-11. -drain management as per surgery #pulmonary fibrosis: as per pulm #h/o esophagitis and gastritis: cont home h2b #colon ca: outpatient onc f/u PO status as per gen surg CM consult for HH discharge home with HH when cleared by general surgery Subjective 24 Hr Interval Summary Free Text/Dictation Resting in bed this morning Exam/Review of Systems Vital Signs Vitals Vital Signs Date Time Temp Pulse Resp B/P Pulse Ox O2 Delivery O2 Flow Rate FiO2 05/13/17 07:25 98.0 81 19 151/63 98 05/13/17 01:18 2.0 05/12/17 21:30 Nasal Cannula 05/09/17 12:00 35 Intake and Output 05/12/17 05/12/17 05/13/17 15:00 23:00 07:00 Intake Total 100 ml 1610 ml 770 ml Output Total 110 ml 1680 ml 1260 ml Balance -10 ml -70 ml -490 ml Exam nad laying in bed no mrg drains still in place no rashes Results Result Diagram: 05/13/17 0457 05/13/17 0457 Results 24 hrs Laboratory Tests Test 05/13/17 04:29 05/13/17 04:57 Stool Occult Blood NEGATIVE White Blood Count 8.0 # Red Blood Count 3.14 L Hemoglobin 7.5 L Hematocrit 24.1 L Mean Corpuscular Volume 76.8 L Mean Corpuscular Hemoglobin 23.9 L Mean Corpuscular Hemoglobin Concent 31.1 L Red Cell Distribution Width 26.5 H Platelet Count 218 # Mean Platelet Volume 9.5 Neutrophils % 72.3 Lymphocytes % 9.9 L Monocytes % 14.5 H Eosinophils % 1.4 Basophils % 0.5 Nucleated Red Blood Cells % 0.0 Neutrophils # 5.8 Lymphocytes # 0.8 Monocytes # 1.2 H Eosinophils # 0.1 Basophils # 0.0 Nucleated Red Blood Cells # 0.0 Sodium Level 138 Potassium Level 3.4 L Chloride Level 99 Carbon Dioxide Level 35 H Anion Gap 7 L Blood Urea Nitrogen 3 L Creatinine 0.57 Glucose Level 90 Calcium Level 7.8 L Medications Medications Current Medications Morphine Sulfate (morphine) 2 mg Q4H PRN IV PAIN LEVEL 7-10 Last administered on 05/13/17 07:52; Admin Dose 2 MG; Start 05/07/17 at 22:30 Hydromorphone HCl 0.5 mg 0.5 mg Q3H PRN IV PAIN Last administered on 20:00; Admin Dose 0.5 MG; Start 05/08/17 at 06:15 Ondansetron HCl/ Dextrose (Zofran Inj/D5W) 54 ml @ 108 mls/hr Q6H PRN IV NAUSEA AND/OR VOMITING Last administered on 05/11/17 12:53; Admin Dose 108 MLS /HR; Start 05/08/17 at 06:30 Famotidine (Pepcid) 20 mg BID PO Last administered on 05/13/17 07:51; Admin Dose 20 MG; Start 05/10/17 at 21:00 Levofloxacin 750 mg 750 mg Q48H NGT Last administered on 05/12/17 05:43; Admin Dose 750 MG; Start 05/12/17 at 06:00 Ampicillin/Sodium Chloride (Ampicillin/NS) 50 ml @ 100 mls/hr Q6 IVPB Last administered on 05/13/17 11:13; Admin Dose 100 MLS/HR; Start 05/11/17 at 18: 00 Acetaminophen/ Hydrocodone Bitart ([place] (10/325)) 1 tab Q6H PRN PO PAIN Last administered on 05/13/17 11:13; Admin Dose 1 TAB; Start 05/13/17 at 00:00 BRO CHAU MD May 13, 2017 13:09
[2017-05-13 14:42] LABS: HEMATOCRIT 24.5 % (37.0-47.0); HEMOGLOBIN 7.6 g/dl (12.0-16.0)
[2017-05-13 16:02] VITALS: BP 131/67; RESP 19
[2017-05-13 20:10] VITALS: BP 139/64; RESP 18
[2017-05-14 02:00] VITALS: BP 156/72; PULSE 72; RESP 18
[2017-05-14 05:37] LABS: ABNORMAL IP MESSAGE 1; BASOPHILS % 0.4 % (0.0-2.0); EOSINOPHILS # 0.1 10^3/ul (0.0-0.5); EOSINOPHILS % 0.7 % (0.0-7.0); HEMATOCRIT 23.5 % (37.0-47.0); HEMOGLOBIN 7.3 g/dl (12.0-16.0); LYMPHOCYTES # 0.8 10^3/ul (0.8-2.9); LYMPHOCYTES % 7.9 % (15.0-51.0); MEAN CORPUSCULAR HEMOGLOBIN 23.5 pg (29.0-33.0); MEAN CORPUSCULAR HGB CONC 31.1 g/dl (32.0-37.0); MEAN CORPUSCULAR VOLUME 75.6 fl (82.0-101.0); MEAN PLATELET VOLUME 9.6 fl (7.4-10.4); MONOCYTE # 1.1 10^3/ul (0.3-0.9); MONOCYTES % 10.1 % (0.0-11.0); NEUTROPHIL # 8.4 10^3/ul (1.6-7.5); NEUTROPHILS % 79.7 % (39.0-77.0); PLATELET COUNT 303 10^3/UL (140-415); RED BLOOD COUNT 3.11 10^6/ul (4.20-5.40); RED CELL DISTRIBUTION WIDTH 27.1 % (11.5-14.5); WHITE BLOOD COUNT 10.5 10^3/ul (4.8-10.8)
[2017-05-14] MEDS: LEVOFLOXACIN 750 MG TABLET NGT SCH (05:39)
[2017-05-14] MEDS: AMPICILLIN 500 MG in SOD CHLORIDE 0.9% 50 ML IVPB SCH ×3 (05:39→17:06)
[2017-05-14 06:17] LABS: CREATININE 0.52 mg/dl (0.44-1.00)
[2017-05-14 06:56] LABS: POSITIVE DIFF @See below
[2017-05-14 08:32] VITALS: BP 125/65; RESP 18
[2017-05-14] MEDS: FAMOTIDINE 20 MG TAB PO SCH ×2 (08:40→21:10)
[2017-05-14] MEDS: HYDROCODONE/APAP (10/325) TAB PO PRN ×2 (08:40→17:06)
[2017-05-14] MEDS ORDERED: POTASSIUM CHLORIDE (SR) 20 MEQ TAB PO STA (09:29)
--- NOTE | 2017-05-14 09:46 | CONS ---
Date/Time of Note Date/Time of Note DATE: 05/14/17 TIME: 09:44 Assessment/Plan Assessment/Plan Additional Assessment/Plan Assessment and recommendations; 1. Patient admitted with acute abdomen status post repair of anastomosis leak. 2. History of colon cancer status post resection. 3. Status post respiratory failure with significantly improved overall clinical status. 4. Anemia. Continue current treatment. Consultation Date/Type/Reason Admit Date/Time May 07, 2017 at 20:57 Initial Consult Date 05/07/17 Type of Consultation: Pulmonary Referring Provider: ANA GALLEGO MD 24 HR Interval Summary Free Text/Dictation Patient's condition is stable. Remains awake and alert. General exam; elderly woman, awake and alert. Currently in no distress. Exam/Review of Systems Vital Signs Vitals Vital Signs Date Time Temp Pulse Resp B/P Pulse Ox O2 Delivery O2 Flow Rate FiO2 05/14/17 08:32 98.5 78 18 125/65 99 05/14/17 04:18 2.0 05/14/17 02:00 Nasal Cannula Intake and Output 05/13/17 05/13/17 05/14/17 15:00 23:00 07:00 Intake Total 100 ml 910 ml 700 ml Output Total 1261 ml 1075 ml Balance 100 ml -351 ml -375 ml Exam HEENT exam; supple neck, no JVD. No lymphadenopathy. Midline trachea. No thyromegaly. Patient has fair dentition. Chest exam; clear to auscultation. S1-S2 audible, no murmurs. Regular rhythm. Abdomen exam; soft, midline dressing in place. Nontender. Bowel sounds audible. Extremity exam; no peripheral edema. PREHEMMER exam; no focal deficit. Results Result Diagram: 05/14/17 0442 05/14/17 0442 Results 24 hrs Laboratory Tests Test 05/13/17 14:09 05/14/17 04:42 Hemoglobin 7.6 L 7.3 L Hematocrit 24.5 L 23.5 L White Blood Count 10.5 # Red Blood Count 3.11 L Mean Corpuscular Volume 75.6 L Mean Corpuscular Hemoglobin 23.5 L Mean Corpuscular Hemoglobin Concent 31.1 L Red Cell Distribution Width 27.1 H Platelet Count 303 # Mean Platelet Volume 9.6 Neutrophils % 79.7 H Lymphocytes % 7.9 L Monocytes % 10.1 Eosinophils % 0.7 Basophils % 0.4 Nucleated Red Blood Cells % 0.0 Neutrophils # 8.4 H Lymphocytes # 0.8 Monocytes # 1.1 H Eosinophils # 0.1 Basophils # 0.0 Nucleated Red Blood Cells # 0.0 Sodium Level 138 Potassium Level 3.0 L Chloride Level 99 Carbon Dioxide Level 37 H Anion Gap 5 L Blood Urea Nitrogen 3 L Creatinine 0.52 Glucose Level 90 Calcium Level 8.0 L Medications Medications Current Medications Morphine Sulfate (morphine) 2 mg Q4H PRN IV PAIN LEVEL 7-10 Last administered on 05/13/17 21:01; Admin Dose 2 MG; Start 05/07/17 at 22:30 Hydromorphone HCl 0.5 mg 0.5 mg Q3H PRN IV PAIN Last administered on 20:00; Admin Dose 0.5 MG; Start 05/08/17 at 06:15 Ondansetron HCl/ Dextrose (Zofran Inj/D5W) 54 ml @ 108 mls/hr Q6H PRN IV NAUSEA AND/OR VOMITING Last administered on 05/11/17 12:53; Admin Dose 108 MLS /HR; Start 05/08/17 at 06:30 Famotidine (Pepcid) 20 mg BID PO Last administered on 05/14/17 08:40; Admin Dose 20 MG; Start 05/10/17 at 21:00 Levofloxacin 750 mg 750 mg Q48H NGT Last administered on 05/14/17 05:39; Admin Dose 750 MG; Start 05/12/17 at 06:00 Ampicillin/Sodium Chloride (Ampicillin/NS) 50 ml @ 100 mls/hr Q6 IVPB Last administered on 05/14/17 05:39; Admin Dose 100 MLS/HR; Start 05/11/17 at 18: 00 Acetaminophen/ Hydrocodone Bitart ([place] (10/325)) 1 tab Q6H PRN PO PAIN Last administered on 05/14/17 08:40; Admin Dose 1 TAB; Start 05/13/17 at 00:00 TRINH HOLLOWAY May 14, 2017 09:46
[2017-05-14 16:15] VITALS: BP 129/61; PULSE 91; RESP 13
--- NOTE | 2017-05-14 17:42 | PN ---
Date/Time of Note Date/Time of Note DATE: 05/14/17 TIME: 17:39 Assessment/Plan VTE Prophylaxis VTE Prophylaxis Intervention: SCD's Lines/Catheters IV Catheter Type (from Nrsg): Saline Lock Urinary Cath still in place: No Assessment/Plan Assessment/Plan 81-year-old female with recent R colectomy 11.3 for colon ca presented with abd pain, found to have sepsis from anastomotic leak warranting surgical repair which pt underwent 05.08. #anastomotic leak with resultant peritonitis causing sepsis -narrowed abx to levo/amp given culture results. talked to general surgeon, he advised 10-14 days abx given bowel perforation. End of therapy .-05.22 will talk to pt in AM about PICC line. already notified CM. -drain management as per surgery #pulmonary fibrosis: as per pulm #h/o esophagitis and gastritis: cont home h2b #colon ca: outpatient onc f/u PO status as per gen surg CM consult for HH discharge home with HH when cleared by general surgery Subjective 24 Hr Interval Summary Free Text/Dictation Still only wants to go home and not to a SNF Exam/Review of Systems Vital Signs Vitals Vital Signs Date Time Temp Pulse Resp B/P Pulse Ox O2 Delivery O2 Flow Rate FiO2 05/14/17 17:35 2.0 05/14/17 16:15 97.8 91 13 129/61 100 Room Air Intake and Output 05/13/17 05/13/17 05/14/17 15:00 23:00 07:00 Intake Total 100 ml 910 ml 700 ml Output Total 1261 ml 1075 ml Balance 100 ml -351 ml -375 ml Exam nad no mrg lungs clear abd soft no rashes EColi I to Unasyn Results Result Diagram: 05/14/1744105/14/17441 Results 24 hrs Laboratory Tests Test 05/14/17 04:42 White Blood Count 10.5 # Red Blood Count 3.11 L Hemoglobin 7.3 L Hematocrit 23.5 L Mean Corpuscular Volume 75.6 L Mean Corpuscular Hemoglobin 23.5 L Mean Corpuscular Hemoglobin Concent 31.1 L Red Cell Distribution Width 27.1 H Platelet Count 303 # Mean Platelet Volume 9.6 Neutrophils % 79.7 H Lymphocytes % 7.9 L Monocytes % 10.1 Eosinophils % 0.7 Basophils % 0.4 Nucleated Red Blood Cells % 0.0 Neutrophils # 8.4 H Lymphocytes # 0.8 Monocytes # 1.1 H Eosinophils # 0.1 Basophils # 0.0 Nucleated Red Blood Cells # 0.0 Sodium Level 138 Potassium Level 3.0 L Chloride Level 99 Carbon Dioxide Level 37 H Anion Gap 5 L Blood Urea Nitrogen 3 L Creatinine 0.52 Glucose Level 90 Calcium Level 8.0 L Medications Medications Current Medications Morphine Sulfate (morphine) 2 mg Q4H PRN IV PAIN LEVEL 7-10 Last administered on 05/13/17 21:01; Admin Dose 2 MG; Start 05/07/17 at 22:30 Hydromorphone HCl 0.5 mg 0.5 mg Q3H PRN IV PAIN Last administered on 20:00; Admin Dose 0.5 MG; Start 05/08/17 at 06:15 Ondansetron HCl/ Dextrose (Zofran Inj/D5W) 54 ml @ 108 mls/hr Q6H PRN IV NAUSEA AND/OR VOMITING Last administered on 05/11/17 12:53; Admin Dose 108 MLS /HR; Start 05/08/17 at 06:30 Famotidine (Pepcid) 20 mg BID PO Last administered on 05/14/17 08:40; Admin Dose 20 MG; Start 05/10/17 at 21:00 Levofloxacin 750 mg 750 mg Q48H NGT Last administered on 05/14/17 05:39; Admin Dose 750 MG; Start 05/12/17 at 06:00 Ampicillin/Sodium Chloride (Ampicillin/NS) 50 ml @ 100 mls/hr Q6 IVPB Last administered on 05/14/17 17:06; Admin Dose 100 MLS/HR; Start 05/11/17 at 18: 00 Acetaminophen/ Hydrocodone Bitart ([place] (10/325)) 1 tab Q6H PRN PO PAIN Last administered on 05/14/17 17:06; Admin Dose 1 TAB; Start 05/13/17 at 00:00 BRO CHAU MD May 14, 2017 17:42
--- NOTE | 2017-05-14 18:28 | PN ---
Date/Time of Note Date/Time of Note DATE: 05/14/17 TIME: 18:16 Assessment/Plan Lines/Catheters IV Catheter Type (from [facility]): Saline Lock Aguilar in Place (from [facility]): No Assessment/Plan Chief Complaint/Hosp Course 1.S/p ascending colon adenocarcinoma status post laparoscopic right colectomy ; Anastomotic leak mid staple line with open jaymie for about a 3 mm enterotomy with peritonitis and sepsis; Improved. Bowel function. -abx -IS -justin drain care -ice to abd wall -ambulate/PT -may be discharged home w hh per medical team (refusing rehab/snf). To follow in office in 1-2 weeks. 2. 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 -onc follow up as outpt 3. Esophagitis -Diet and lifestyle optimization -Antacids 4. Hemorrhoids -Dietary and lifestyle optimization 5. Gastritis -Diet and lifestyle optimization -Antacids 6. Anemia secondary to above -As above 7. Hx GI bleed, multifactorial, secondary to above. Stable -Monitor -As above -will recheck h/h Thank you. Patient seen and examined in collaboration with Dr. Jw Sheppard. Problems: Subjective 24 Hr Interval Summary C/o midepigastric pain, min nausea. Poor appetite. No fevers, chills, sob, congested cough, cp, palpitations, soto, dizziness, n/v/d/dysuria. Refusing rehab. Exam/Review of Systems Vital Signs Vitals Vital Signs Date Time Temp Pulse Resp B/P Pulse Ox O2 Delivery O2 Flow Rate FiO2 05/14/17 17:35 2.0 05/14/17 16:15 97.8 91 13 129/61 100 Room Air Intake and Output 05/13/17 05/13/17 05/14/17 14:59 22:59 06:59 Intake Total 100 ml 910 ml 700 ml Output Total 1261 ml 1075 ml Balance 100 ml -351 ml -375 ml Exam Free Text/Dictation Constitutional: alert, oriented Psych: nl mood/affect and anxious Head: atraumatic, normocephalic Eyes: EOMI, PERRL, nl conjunctiva, No icteric ENMT: mucosa pink and somewhat dry, nl external ears & nose, nl lips & teeth; ng tube Neck: non-tender, supple, No jvd Respiratory: normal air movement, No congested cough, No labored breathing; extubated Cardiovascular: no regular rate and rhythm, No edema; ST Gastrointestinal: Min tender. No erythema/drainage/bruising. Ileostomy pink and moist with gas/stool; midline incision site dry; upper justin serosanguineous, lower justin serous drainage Musculoskeletal: nl extremities to inspection, No joint tenderness, Min range of motion. Extremities: normal pulses, No calf tenderness, No cyanosis Neurological: nl mental status, nl speech, nl strength Skin: nl turgor, No diaphoresis, No rash or lesions Lymph: nl lymph nodes Results Result Diagram: 05/14/17 0442 05/14/17 0442 GERALDO SILVA NP May 14, 2017 18:28
[2017-05-14 19:54] VITALS: BP 131/77; PULSE 89; RESP 18
[2017-05-15] MEDS: AMPICILLIN 500 MG in SOD CHLORIDE 0.9% 50 ML IVPB SCH ×4 (00:25→18:57)
[2017-05-15] MEDS: HYDROCODONE/APAP (10/325) TAB PO PRN ×2 (00:25→20:43)
[2017-05-15 02:00] VITALS: BP 140/63; RESP 20
[2017-05-15 05:19] LABS: ABNORMAL IP MESSAGE 1; BASOPHILS % 0.3 % (0.0-2.0); EOSINOPHILS # 0.1 10^3/ul (0.0-0.5); EOSINOPHILS % 0.8 % (0.0-7.0); HEMATOCRIT 25.8 % (37.0-47.0); HEMOGLOBIN 7.9 g/dl (12.0-16.0); LYMPHOCYTES % 8.6 % (15.0-51.0); MEAN CORPUSCULAR HEMOGLOBIN 23.8 pg (29.0-33.0); MEAN CORPUSCULAR HGB CONC 30.6 g/dl (32.0-37.0); MEAN CORPUSCULAR VOLUME 77.7 fl (82.0-101.0); MEAN PLATELET VOLUME 9.2 fl (7.4-10.4); MONOCYTES % 8.8 % (0.0-11.0); NEUTROPHIL # 9.2 10^3/ul (1.6-7.5); NEUTROPHILS % 80.3 % (39.0-77.0); PLATELET COUNT 390 10^3/UL (140-415); RED BLOOD COUNT 3.32 10^6/ul (4.20-5.40); RED CELL DISTRIBUTION WIDTH 27.2 % (11.5-14.5); WHITE BLOOD COUNT 11.5 10^3/ul (4.8-10.8)
[2017-05-15 06:36] LABS: CALCIUM 8.1 mg/dl (8.4-10.2); CREATININE 0.54 mg/dl (0.44-1.00); POTASSIUM 3.4 mmol/L (3.5-5.1)
[2017-05-15 06:58] LABS: POSITIVE DIFF @See below
[2017-05-15 08:00] VITALS: BP 138/62; RESP 18
[2017-05-15] MEDS: FAMOTIDINE 20 MG TAB PO SCH ×2 (08:36→20:43)
[2017-05-15 14:00] VITALS: BP 142/63; RESP 18
--- NOTE | 2017-05-15 14:52 | PN ---
Date/Time of Note Date/Time of Note DATE: 05/15/17 TIME: 14:51 Assessment/Plan Lines/Catheters IV Catheter Type (from [facility]): Saline Lock Aguilar in Place (from [facility]): No Assessment/Plan Chief Complaint/Hosp Course 1. Abdominal pain, significant leukocytosis, CT with free air and contrast leak at anastomosis with resultant peritonitis and sepsis; s/p ascending colon adenocarcinoma status post laparoscopic right colectomy 04/30/17; Anastomotic leak mid staple line with open jaymie for about a 3 mm enterotomy with peritonitis and sepsis; Improved. Bowel function. -abx -IVF/supportive -IS -justin drain care -ambulate/PT -diet -? alba cx 2. 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 -onc follow up as outpt 3. Esophagitis -Diet and lifestyle optimization -Antacids 4. Hemorrhoids -Dietary and lifestyle optimization 5. Gastritis -Diet and lifestyle optimization -Antacids 6. Anemia secondary to above -As above 7. Hx GI bleed, multifactorial, secondary to above. Stable -Monitor -As above Thank you, Problems: Subjective 24 Hr Interval Summary Patient open to going to [facility]. Low grade temp with chills. Increasing wbc with neutrophils. Midepigastric pain, min nausea. Appetite improved. No sob, congested cough, cp, palpitations, soto, dizziness, n/v/d/dysuria. Exam/Review of Systems Vital Signs Vitals Vital Signs Date Time Temp Pulse Resp B/P Pulse Ox O2 Delivery O2 Flow Rate FiO2 05/15/17 14:00 99.5 79 18 142/63 100 05/15/17 13:47 2.0 05/15/17 09:00 Nasal Cannula Intake and Output 05/14/17 05/14/17 05/15/17 15:00 23:00 07:00 Intake Total 50 ml 650 ml 580 ml Output Total 1725 ml 1085 ml Balance 50 ml -1075 ml -505 ml Exam Free Text/Dictation Constitutional: alert, oriented Psych: nl mood/affect and anxious Head: atraumatic, normocephalic Eyes: EOMI, PERRL, nl conjunctiva, No icteric ENMT: mucosa pink and somewhat dry, nl external ears & nose, nl lips & teeth; ng tube Neck: non-tender, supple, No jvd Respiratory: normal air movement, No congested cough, No labored breathing; extubated Cardiovascular: no regular rate and rhythm, No edema; ST Gastrointestinal: Min tender epigastric. No erythema/drainage/bruising. Ileostomy pink and moist with gas/ formed stool; midline incision site dry; Both JPs serosang. Musculoskeletal: nl extremities to inspection, No joint tenderness, Min range of motion. Extremities: normal pulses, No calf tenderness, No cyanosis Neurological: nl mental status, nl speech, nl strength Skin: nl turgor, No diaphoresis, No rash or lesions Lymph: nl lymph nodes Results Result Diagram: 05/15/17 0458 05/15/17 0547 MICHELLE BOURNE MD May 15, 2017 14:52
--- NOTE | 2017-05-15 16:40 | RADRPT ---
PROCEDURE: XR Chest. CLINICAL INDICATION: Fever TECHNIQUE: Single frontal radiograph of the chest. COMPARISON: CHEST 05/10/2017 FINDINGS: Bibasilar infiltrates are present. Coarse interstitial opacities. Possible trace bilateral pleural effusions. No pneumothorax. Moderate cardiomegaly. No acute osseous abnormalities. Vascular calcifications of the aorta are present compatible with atherosclerosis. IMPRESSION: Bibasilar infiltrates are mildly improved with minimal bilateral pleural effusions and superimposed coarse interstitial opacities. Differential considerations including multifocal pneumonia such as fr om aspiration with other changes of interstitial lung disease not excluded. CT scan of the chest rec ommended for further evaluation. RPTAT: AADD .Corey Aguilar MD, MD Date Time Electronically viewed and signed by .Corey Aguilar MD, on 05/15/2017 16:40 .B/
--- NOTE | 2017-05-15 16:42 | PN ---
Date/Time of Note Date/Time of Note DATE: 05/15/17 TIME: 16:40 Assessment/Plan VTE Prophylaxis VTE Prophylaxis Intervention: SCD's Lines/Catheters IV C[facility]ter Type (from [facility]): Saline Lock Urinary Cath still in place: No Assessment/Plan Assessment/Plan 81-year-old female with recent R colectomy 11.3 for colon ca presented with abd pain, found to have sepsis from anastomotic leak warranting surgical repair which pt underwent 11.. Slight increase WBCs today but no temps>100, no tachycardia -monitor closely, low threshold to panculture #anastomotic leak with resultant peritonitis causing sepsis -narrowed abx to levo/amp given culture results. talked to general surgeon, he advised 10-14 days abx given bowel perforation. End of therapy .-11. -drain management as per surgery -pt declined PICC discussion today #pulmonary fibrosis: as per pulm #h/o esophagitis and gastritis: cont home h2b #colon ca: outpatient onc f/u had some sort of issue with her ostomy back yesterday and now is amenable to considering SNF CM notified and new CM order placed Subjective 24 Hr Interval Summary Free Text/Dictation had an issue with her ostomy back last night and now is open to SNF reports chills this AM Exam/Review of Systems Vital Signs Vitals Vital Signs Date Time Temp Pulse Resp B/P Pulse Ox O2 Delivery O2 Flow Rate FiO2 05/15/17 14:00 99.5 79 18 142/63 100 05/15/17 13:47 2.0 05/15/17 09:00 Nasal Cannula Intake and Output 05/14/17 05/14/17 05/15/17 15:00 23:00 07:00 Intake Total 50 ml 650 ml 580 ml Output Total 1725 ml 1085 ml Balance 50 ml -1075 ml -505 ml Exam nad no mrg lungsclear abd soft no rashes Results Result Diagram: 05/15/17 0458 05/15/17 0547 Results 24 hrs Laboratory Tests Test 05/15/17 04:58 05/15/17 05:47 White Blood Count 11.5 H Red Blood Count 3.32 L Hemoglobin 7.9 L Hematocrit 25.8 L Mean Corpuscular Volume 77.7 L Mean Corpuscular Hemoglobin 23.8 L Mean Corpuscular Hemoglobin Concent 30.6 L Red Cell Distribution Width 27.2 H Platelet Count 390 # Mean Platelet Volume 9.2 Neutrophils % 80.3 H Lymphocytes % 8.6 L Monocytes % 8.8 Eosinophils % 0.8 Basophils % 0.3 Nucleated Red Blood Cells % 0.0 Neutrophils # 9.2 H Lymphocytes # 1.0 Monocytes # 1.0 H Eosinophils # 0.1 Basophils # 0.0 Nucleated Red Blood Cells # 0.0 Sodium Level 141 Potassium Level 3.4 L Chloride Level 101 Carbon Dioxide Level 33 H Anion Gap 10 # Blood Urea Nitrogen 3 L Creatinine 0.54 Glucose Level 98 Calcium Level 8.1 L Medications Medications Current Medications Morphine Sulfate (morphine) 2 mg Q4H PRN IV PAIN LEVEL 7-10 Last administered on 05/13/17 21:01; Admin Dose 2 MG; Start 05/07/17 at 22:30 Hydromorphone HCl 0.5 mg 0.5 mg Q3H PRN IV PAIN Last administered on 20:00; Admin Dose 0.5 MG; Start 05/08/17 at 06:15 Ondansetron HCl/ Dextrose (Zofran Inj/D5W) 54 ml @ 108 mls/hr Q6H PRN IV NAUSEA AND/OR VOMITING Last administered on 05/11/17 12:53; Admin Dose 108 MLS /HR; Start 05/08/17 at 06:30 Famotidine (Pepcid) 20 mg BID PO Last administered on 05/15/17 08:36; Admin Dose 20 MG; Start 05/10/17 at 21:00 Levofloxacin 750 mg 750 mg Q48H NGT Last administered on 05/14/17 05:39; Admin Dose 750 MG; Start 05/12/17 at 06:00 Ampicillin/Sodium Chloride (Ampicillin/NS) 50 ml @ 100 mls/hr Q6 IVPB Last administered on 05/15/17 13:08; Admin Dose 100 MLS/HR; Start 05/11/17 at 18: 00 Acetaminophen/ Hydrocodone Bitart ([place] (10/325)) 1 tab Q6H PRN PO PAIN Last administered on 05/15/17 00:25; Admin Dose 1 TAB; Start 05/13/17 at 00:00 BRO CHAU MD May 15, 2017 16:42
[2017-05-15 19:10] VITALS: BP 131/62; RESP 20
[2017-05-15 23:01] LABS: ADD UMIC NO; UR ASCORBIC ACID NEGATIVE (NEGATIVE); UR BILIRUBIN (Dip) NEGATIVE (NEGATIVE); UR BLOOD (Dip) NEGATIVE (NEGATIVE); UR CLARITY CLEAR (CLEAR); UR COLOR YELLOW (YELLOW); UR GLUCOSE (Dip) NEGATIVE (NEGATIVE); UR KETONES (Dip) NEGATIVE (NEGATIVE); UR LEUKOCYTE ESTERASE (Dip) NEGATIVE Leu/ul (NEGATIVE); UR NITRITE (Dip) NEGATIVE (NEGATIVE); UR SPECIFIC GRAVITY (Dip) 1.008 (1.003-1.030); UR TOTAL PROTEIN (Dip) NEGATIVE (NEGATIVE); UR UROBILINOGEN (Dip) NEGATIVE (NEGATIVE)
[2017-05-16] MEDS: AMPICILLIN 500 MG in SOD CHLORIDE 0.9% 50 ML IVPB SCH ×5 (00:09→23:47)
[2017-05-16] MEDS: ALBUTEROL/IPRATROPIUM (NEB) 3 ML AMP NEB PRN (01:43)
[2017-05-16 02:00] VITALS: BP 132/62; RESP 20
[2017-05-16] MEDS: LEVOFLOXACIN 750 MG TABLET NGT SCH (05:45)
[2017-05-16] MEDS: HYDROCODONE/APAP (10/325) TAB PO PRN (05:45)
[2017-05-16 06:09] LABS: ABNORMAL IP MESSAGE 1; BASOPHIL # 0.1 10^3/ul (0.0-0.1); BASOPHILS % 0.4 % (0.0-2.0); EOSINOPHILS # 0.1 10^3/ul (0.0-0.5); EOSINOPHILS % 0.4 % (0.0-7.0); HEMATOCRIT 25.7 % (37.0-47.0); HEMOGLOBIN 7.9 g/dl (12.0-16.0); LYMPHOCYTES # 0.8 10^3/ul (0.8-2.9); LYMPHOCYTES % 5.9 % (15.0-51.0); MEAN CORPUSCULAR HEMOGLOBIN 24.2 pg (29.0-33.0); MEAN CORPUSCULAR HGB CONC 30.7 g/dl (32.0-37.0); MEAN CORPUSCULAR VOLUME 78.6 fl (82.0-101.0); MONOCYTE # 1.1 10^3/ul (0.3-0.9); MONOCYTES % 7.9 % (0.0-11.0); NEUTROPHIL # 11.3 10^3/ul (1.6-7.5); NEUTROPHILS % 84.3 % (39.0-77.0); PLATELET COUNT 437 10^3/UL (140-415); RED BLOOD COUNT 3.27 10^6/ul (4.20-5.40); RED CELL DISTRIBUTION WIDTH 27.8 % (11.5-14.5); WHITE BLOOD COUNT 13.5 10^3/ul (4.8-10.8)
[2017-05-16 06:10] LABS: POSITIVE DIFF @See below
[2017-05-16 06:36] LABS: CALCIUM 8.1 mg/dl (8.4-10.2); CREATININE 0.55 mg/dl (0.44-1.00); POTASSIUM 3.5 mmol/L (3.5-5.1)
[2017-05-16 08:09] VITALS: BP 146/70; RESP 18
[2017-05-16] MEDS: FAMOTIDINE 20 MG TAB PO SCH ×2 (08:38→21:00)
--- NOTE | 2017-05-16 10:10 | CONS ---
Date/Time of Note Date/Time of Note DATE: 05/16/17 TIME: 10:08 Assessment/Plan Assessment/Plan Additional Assessment/Plan Assessment and recommendations; 1. Patient status post repair of anastomotic leak with history of colon cancer. 2. Status post respiratory failure. 3. Anemia. Continue current supportive care. Patient progressing well on current treatment regimen. Please reconsult if needed. Consultation Date/Type/Reason Admit Date/Time May 07, 2017 at 20:57 Initial Consult Date 05/07/17 Type of Consultation: Pulmonary Referring Provider: ANA GALLEGO MD 24 HR Interval Summary Free Text/Dictation Patient's condition is stable. Denies any shortness of breath, coughing, wheezing. Complains of very minimal abdominal pain. Denies any nausea vomiting. Able to eat well. General exam; elderly woman, awake and alert. Currently in no distress. Exam/Review of Systems Vital Signs Vitals Vital Signs Date Time Temp Pulse Resp B/P Pulse Ox O2 Delivery O2 Flow Rate FiO2 05/16/17 09:00 Nasal Cannula 2.0 05/16/17 08:09 98.2 77 18 146/70 92 Intake and Output 05/15/17 05/15/17 05/16/17 15:00 23:00 07:00 Intake Total 50 ml 840 ml 700 ml Output Total 872 ml 783 ml Balance 50 ml -32 ml -83 ml Exam HEENT exam; supple neck, no JVD. No lymphadenopathy. Midline trachea. No thyromegaly. Chest exam; clear to auscultation. S1-S2 audible, no murmurs. Regular rhythm. Abdomen exam; soft, there is minimal epigastric tenderness. Bowel sounds audible. No organomegaly. Extremity exam; no peripheral edema. PPAP COORDINATOR exam; no focal deficit. Results Result Diagram: 05/16/1718 05/16/1718 Results 24 hrs Laboratory Tests Test 05/15/17 21:42 05/16/17 05:18 Urine Color YELLOW Urine Clarity CLEAR Urine pH 8.0 Urine Specific [place] 1.008 Urine Ketones NEGATIVE Urine Nitrite NEGATIVE Urine Bilirubin NEGATIVE Urine Urobilinogen NEGATIVE Urine Leukocyte Esterase NEGATIVE Urine Hemoglobin NEGATIVE Urine Glucose NEGATIVE Urine Total Protein NEGATIVE White Blood Count 13.5 H Red Blood Count 3.27 L Hemoglobin 7.9 L Hematocrit 25.7 L Mean Corpuscular Volume 78.6 L Mean Corpuscular Hemoglobin 24.2 L Mean Corpuscular Hemoglobin Concent 30.7 L Red Cell Distribution Width 27.8 H Platelet Count 437 H Mean Platelet Volume 9.0 Neutrophils % 84.3 H Lymphocytes % 5.9 L Monocytes % 7.9 Eosinophils % 0.4 Basophils % 0.4 Nucleated Red Blood Cells % 0.0 Neutrophils # 11.3 H Lymphocytes # 0.8 Monocytes # 1.1 H Eosinophils # 0.1 Basophils # 0.1 Nucleated Red Blood Cells # 0.0 Sodium Level 140 Potassium Level 3.5 Chloride Level 100 Carbon Dioxide Level 33 H Anion Gap 11 Blood Urea Nitrogen 4 L Creatinine 0.55 Glucose Level 100 Calcium Level 8.1 L Medications Medications Current Medications Morphine Sulfate (morphine) 2 mg Q4H PRN IV PAIN LEVEL 7-10 Last administered on 05/13/17 21:01; Admin Dose 2 MG; Start 05/07/17 at 22:30 Hydromorphone HCl 0.5 mg 0.5 mg Q3H PRN IV PAIN Last administered on 20:00; Admin Dose 0.5 MG; Start 05/08/17 at 06:15 Ondansetron HCl/ Dextrose (Zofran Inj/D5W) 54 ml @ 108 mls/hr Q6H PRN IV NAUSEA AND/OR VOMITING Last administered on 05/11/17 12:53; Admin Dose 108 MLS /HR; Start 05/08/17 at 06:30 Famotidine (Pepcid) 20 mg BID PO Last administered on 05/16/17 08:38; Admin Dose 20 MG; Start 05/10/17 at 21:00 Levofloxacin 750 mg 750 mg Q48H NGT Last administered on 05/16/17 05:45; Admin Dose 750 MG; Start 05/12/17 at 06:00 Ampicillin/Sodium Chloride (Ampicillin/NS) 50 ml @ 100 mls/hr Q6 IVPB Last administered on 05/16/17 05:45; Admin Dose 100 MLS/HR; Start 05/11/17 at 18: 00 Acetaminophen/ Hydrocodone Bitart ([place] (10/325)) 1 tab Q6H PRN PO PAIN Last administered on 05/16/17 05:45; Admin Dose 1 TAB; Start 05/13/17 at 00:00 TRINH HOLLOWAY May 16, 2017 10:10
[2017-05-16] MEDS ORDERED: BARIUM SULF 2% 450 ML BTL (BERRY SMOOTHIE) PO ONE (12:00)
[2017-05-16] MEDS ORDERED: IOHEXOL 14.3 MG(I)/ML (ADULT) BTL PO ONE (13:30)
[2017-05-16] MEDS: metroNIDAZOLE 500 MG/NS (PMX) 100 ML IVPB SCH ×2 (13:42→21:14)
[2017-05-16 14:35] VITALS: BP 138/70; RESP 18
[2017-05-16] MEDS ORDERED: IODIXANOL LOCM 100 ML BTL ONE (15:52)
[2017-05-16] MEDS ORDERED: SOD CHLORIDE 0.9% 100 ML ONE (15:52)
--- NOTE | 2017-05-16 16:26 | PN ---
Date/Time of Note Date/Time of Note DATE: 05/16/17 TIME: 16:23 Assessment/Plan VTE Prophylaxis VTE Prophylaxis Intervention: SCD's Lines/Catheters IV Catheter Type (from Nrsg): Saline Lock Urinary Cath still in place: No Assessment/Plan Assessment/Plan 81-year-old female with recent R colectomy 11.3 for colon ca presented with abd pain, found to have sepsis from anastomotic leak warranting surgical repair which pt underwent 05.08. WBCs again increased and pt with abd pain. dw general surgery, repeat imaging ordered. abx coverage expanded with Flagyl for anaerobes #anastomotic leak with resultant peritonitis causing sepsis -flagyll added today, cont levoflox/amp. talked to general surgeon, he advised 10-14 days abx given bowel perforation. End of therapy 05.18-05.22 -drain management as per surgery #pulmonary fibrosis: as per pulm #h/o esophagitis and gastritis: cont home h2b #colon ca: outpatient onc f/u amenable to SNF however insurance won't cover it? CM on consult Subjective 24 Hr Interval Summary Free Text/Dictation pt with upper abd discomfort this afternoon Exam/Review of Systems Vital Signs Vitals Vital Signs Date Time Temp Pulse Resp B/P Pulse Ox O2 Delivery O2 Flow Rate FiO2 05/16/17 14:35 97.8 78 18 138/70 90 05/16/17 09:00 Nasal Cannula 2.0 Intake and Output 05/15/17 05/15/17 05/16/17 15:00 23:00 07:00 Intake Total 50 ml 840 ml 700 ml Output Total 872 ml 783 ml Balance 50 ml -32 ml -83 ml Exam nad no mrg lungs clear mild ttp epigastric region drains with serosang output no edema WBCs higher Results Result Diagram: 05/16/1718 05/16/17 0518 Results 24 hrs Laboratory Tests Test 05/15/17 21:42 05/16/17 05:18 Urine Color YELLOW Urine Clarity CLEAR Urine pH 8.0 Urine Specific [place] 1.008 Urine Ketones NEGATIVE Urine Nitrite NEGATIVE Urine Bilirubin NEGATIVE Urine Urobilinogen NEGATIVE Urine Leukocyte Esterase NEGATIVE Urine Hemoglobin NEGATIVE Urine Glucose NEGATIVE Urine Total Protein NEGATIVE White Blood Count 13.5 H Red Blood Count 3.27 L Hemoglobin 7.9 L Hematocrit 25.7 L Mean Corpuscular Volume 78.6 L Mean Corpuscular Hemoglobin 24.2 L Mean Corpuscular Hemoglobin Concent 30.7 L Red Cell Distribution Width 27.8 H Platelet Count 437 H Mean Platelet Volume 9.0 Neutrophils % 84.3 H Lymphocytes % 5.9 L Monocytes % 7.9 Eosinophils % 0.4 Basophils % 0.4 Nucleated Red Blood Cells % 0.0 Neutrophils # 11.3 H Lymphocytes # 0.8 Monocytes # 1.1 H Eosinophils # 0.1 Basophils # 0.1 Nucleated Red Blood Cells # 0.0 Sodium Level 140 Potassium Level 3.5 Chloride Level 100 Carbon Dioxide Level 33 H Anion Gap 11 Blood Urea Nitrogen 4 L Creatinine 0.55 Glucose Level 100 Calcium Level 8.1 L Medications Medications Current Medications Morphine Sulfate (morphine) 2 mg Q4H PRN IV PAIN LEVEL 7-10 Last administered on 05/13/17 21:01; Admin Dose 2 MG; Start 05/07/17 at 22:30 Hydromorphone HCl 0.5 mg 0.5 mg Q3H PRN IV PAIN Last administered on 20:00; Admin Dose 0.5 MG; Start 05/08/17 at 06:15 Ondansetron HCl/ Dextrose (Zofran Inj/D5W) 54 ml @ 108 mls/hr Q6H PRN IV NAUSEA AND/OR VOMITING Last administered on 05/11/17 12:53; Admin Dose 108 MLS /HR; Start 05/08/17 at 06:30 Famotidine (Pepcid) 20 mg BID PO Last administered on 05/16/17 08:38; Admin Dose 20 MG; Start 05/10/17 at 21:00 Levofloxacin 750 mg 750 mg Q48H NGT Last administered on 05/16/17 05:45; Admin Dose 750 MG; Start 05/12/17 at 06:00 Ampicillin/Sodium Chloride (Ampicillin/NS) 50 ml @ 100 mls/hr Q6 IVPB Last administered on 05/16/17 11:15; Admin Dose 100 MLS/HR; Start 05/11/17 at 18: 00 Acetaminophen/ Hydrocodone Bitart 1 tab 1 tab Q6H PRN PO PAIN Last administered on 05/16/17 05:45; Admin Dose 1 TAB; Start 05/13/17 at 00:00 Metronidazole (Flagyl 500 Mg (Pmx)) 100 ml @ 100 mls/hr Q8 IVPB Last administered on 05/16/17t 13:42; Admin Dose 100 MLS/HR; Start 05/16/17 at 12: 30 BRO CHAU MD May 16, 2017 16:26
--- NOTE | 2017-05-16 18:08 | PN ---
Date/Time of Note Date/Time of Note DATE: 05/16/17 TIME: 18:06 Assessment/Plan Lines/Catheters IV Catheter Type (from [facility]): Saline Lock Aguilar in Place (from [facility]): No Assessment/Plan Chief Complaint/Hosp Course 1. Abdominal pain, significant leukocytosis, CT with free air and contrast leak at anastomosis with resultant peritonitis and sepsis; s/p ascending colon adenocarcinoma status post laparoscopic right colectomy 04/30/17; Anastomotic leak mid staple line with open jaymie for about a 3 mm enterotomy with peritonitis and sepsis; Improved. Bowel function. -repeat CT pending -abx -IVF/supportive -IS -justin drain care -ambulate/PT -diet -alba cx 2. 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 -onc follow up as outpt 3. Esophagitis -Diet and lifestyle optimization -Antacids 4. Hemorrhoids -Dietary and lifestyle optimization 5. Gastritis -Diet and lifestyle optimization -Antacids 6. Anemia secondary to above -As above 7. Hx GI bleed, multifactorial, secondary to above. Stable -Monitor -As above Thank you, Problems: Subjective 24 Hr Interval Summary Feels weaker. UA negative. CXR with infiltrates. CT pending. Increasing wbc with neutrophils. Midepigastric pain, min nausea. Appetite improved. No sob, congested cough, cp, palpitations, soto, dizziness, n/v/d/dysuria. Exam/Review of Systems Vital Signs Vitals Vital Signs Date Time Temp Pulse Resp B/P Pulse Ox O2 Delivery O2 Flow Rate FiO2 05/17/17 09:00 Nasal Cannula 2.0 05/17/17 08:30 98.2 78 18 126/58 99 Intake and Output 05/16/17 05/16/17 05/17/17 15:00 23:00 07:00 Intake Total 150 ml 1710 ml 150 ml Output Total 2527 ml Balance 150 ml -817 ml 150 ml Exam Free Text/Dictation Constitutional: alert, oriented Psych: nl mood/affect and anxious Head: atraumatic, normocephalic Eyes: EOMI, PERRL, nl conjunctiva, No icteric ENMT: mucosa pink and somewhat dry, nl external ears & nose, nl lips & teeth; ng tube Neck: non-tender, supple, No jvd Respiratory: normal air movement, No congested cough, No labored breathing; extubated Cardiovascular: no regular rate and rhythm, No edema; ST Gastrointestinal: Min tender epigastric. No erythema/drainage/bruising. Ileostomy pink and moist with gas/ formed stool; midline incision site dry; Both JPs serosang. Musculoskeletal: nl extremities to inspection, No joint tenderness, Min range of motion. Extremities: normal pulses, No calf tenderness, No cyanosis Neurological: nl mental status, nl speech, nl strength Skin: nl turgor, No diaphoresis, No rash or lesions Lymph: nl lymph nodes Results Result Diagram: 05/17/178 05/17/17 0428 MICHELLE BOURNE MD May 16, 2017 18:08 MICHELLE BOURNE MD May 16, 2017 18:08
--- NOTE | 2017-05-16 18:48 | RADRPT ---
PROCEDURE: CT ABDOMEN AND PELVIS WITH CONTRAST CLINICAL INDICATION: 81-year of age, female. Leukocytosis. Recent surgery and anastomotic leak. P ositive cancer history. TECHNIQUE: CT of the abdomen and pelvis was performed following administration of 100 mL IV Visipaq ue 320. Oral contrast was administered prior to the examination. Coronal and sagittal reformatted images were obtained from the axial source images. Images were revi ewed on a high-resolution PACS workstation. DICOM images are available. Dose information: Based on a 32 cm phantom, the estimated radiation dose (CTDIvol mGy for each serie s in this exam is 9.7. The estimated cumulative dose (DLP mGy-cm) is 526. One or more of the following dose reduction techniques were used: - Automated exposure control. - Adjustment of the mA and/or kV according to patient size. - Use of iterative reconstruction technique. COMPARISON: CT May 08, 2017 and multiple priors FINDINGS: LUNG BASES: There is coarse reticulation in the subpleural lung at bilateral lung bases with honeyco mb cysts in keeping with fibrotic lung disease. Enlarged main pulmonary artery measuring 3.2 cm in k eeping with pulmonary artery hypertension. Four-chamber cardiomegaly. ABDOMEN/PELVIS: Liver: Punctate hypodensity left lobe segment 3 likely represents a cyst. There are rim-enhancing siddiqui bcapsular abscesses overlying the right hepatic lobe that are described below. Liver otherwise enhan ce normally. Portal veins, splenic vein and SMV are patent. Hepatic veins are patent. Gallbladder: There is gallbladder wall thickening. Gallbladder is normally distended. Gallbladder wa ll enhances normally. Bile ducts: No intrahepatic or extrahepatic biliary duct dilatation. Spleen: Normal. Pancreas: Normal. Adrenal glands: There is a 1.1 x 1.6 cm hypodense nodule in the left adrenal gland that is new from prior exams (/). Right adrenal gland is normal. Kidneys and ureters: Normal. Negative for urinary calculi or hydronephrosis. Aorta and IVC: Atherosclerotic calcification and tortuosity of aorta and iliac vessels. Negative for abdominal aortic aneurysm. IVC is patent. Iliac veins cannot be evaluated due to phase of contrast injection. Lymph nodes: Normal. Gastrointestinal tract: Status post right hemicolectomy as before. In the interval since prior exam, there has been a right lower quadrant loop ileostomy. Colon is decompressed. Negative for extravasa jesus contrast at the ileocolic anastomosis. Small bowel loops are decompressed without obstruction. T here is mild distension of the stomach with gas and contrast. There is a large periampullary duodena l diverticulum without complications. Negative for evidence of bowel obstruction. Bladder: Normal. Pelvic Organs: Surgically absent. Peritoneal cavity: In the interval since the prior exam, 2 surgical drains have been placed. 1. There is a surgical drain inserted via the left upper quadrant that courses inferior to the left and right lobes of the liver with the tip in the right paracolic gutter. There is inflamed fat in t he extraperitoneal compartment of the right paracolic gutter with pockets of fluid in the region of the catheter and a single bubble of gas. Negative for rim-enhancing abscess. 2. A second surgical drain has been placed in the left lower quadrant and the tip is in the right p estevan. No abnormal collections are identified along the course of this drain. There are small subcapsular rim-enhancing fluid collections overlying the right hepatic lobe in keep ing with subcapsular abscesses. Dominant collections are as follows: Posterior right lobe (3/48 and 601/69): 1.2 x 2.9 x 3.3 cm Superior right lobe subphrenic (3/23 and 601/44): 1.5 x 4.6 x 1.9 cm Previously identified free intraperitoneal air has resolved. Abdominal wall: Body wall edema. Right lower quadrant to loop ileostomy. Injection granulomas right buttocks. BONES: Musculoskeletal: Osteopenia and degenerative changes in spine and pelvis. No suspicious bone lesions . IMPRESSION: 1. Status post right hemicolectomy with an ileocolic anastomosis. In the interval since prior exam, there has been a right lower quadrant loop ileostomy. Bowel loops are decompressed without obstruct ion. Negative for evidence of extravasated contrast at the ileocolic anastomosis on today's scan. 2. Status post placement of a surgical drain inferior to the liver terminating in the right paracoli c gutter. There is inflamed fat with pockets of fluid in the right paracolic gutter in keeping with infection. Negative for rim-enhancing abscess. 3. Small subcapsular abscesses overlying the right hepatic lobe are new since prior exam. Dominant s ubcapsular liver abscesses have been described above. 4. Status post placement of a surgical drain in the pelvis. No fluid collections are identified bradley g the course of this drain. 5. New nodule left adrenal gland may represent a small adrenal abscess in this clinical setting. Rec ommend attention on follow-up imaging. 6. Gallbladder wall thickening is nonspecific and is likely related to adjacent subcapsular liver ab scesses. Gallbladder could better be evaluated with right upper quadrant ultrasound or HIDA scan if the clinical situation warrants. RPTAT: HCTS Shelbie Villanueva Physician Date Time Electronically viewed and signed by Shelbie Villanueva Physician on 05/16/2017 18:48 CS/
[2017-05-16 19:56] VITALS: BP 146/66; RESP 18
[2017-05-17 02:22] VITALS: BP 135/65; RESP 19
[2017-05-17] MEDS: metroNIDAZOLE 500 MG/NS (PMX) 100 ML IVPB SCH ×3 (04:33→21:06)
[2017-05-17 05:05] LABS: ABNORMAL IP MESSAGE 1; BASOPHILS % 0.1 % (0.0-2.0); EOSINOPHILS # 0.1 10^3/ul (0.0-0.5); EOSINOPHILS % 0.5 % (0.0-7.0); HEMATOCRIT 23.3 % (37.0-47.0); HEMOGLOBIN 7.3 g/dl (12.0-16.0); LYMPHOCYTES # 0.9 10^3/ul (0.8-2.9); LYMPHOCYTES % 6.4 % (15.0-51.0); MEAN CORPUSCULAR HEMOGLOBIN 24.4 pg (29.0-33.0); MEAN CORPUSCULAR HGB CONC 31.3 g/dl (32.0-37.0); MEAN CORPUSCULAR VOLUME 77.9 fl (82.0-101.0); MEAN PLATELET VOLUME 8.7 fl (7.4-10.4); MONOCYTE # 1.3 10^3/ul (0.3-0.9); MONOCYTES % 9.1 % (0.0-11.0); NEUTROPHIL # 11.6 10^3/ul (1.6-7.5); NEUTROPHILS % 82.7 % (39.0-77.0); PLATELET COUNT 460 10^3/UL (140-415); RED BLOOD COUNT 2.99 10^6/ul (4.20-5.40); RED CELL DISTRIBUTION WIDTH 27.6 % (11.5-14.5); WHITE BLOOD COUNT 14.1 10^3/ul (4.8-10.8)
[2017-05-17 05:26] LABS: POSITIVE DIFF @See below
[2017-05-17 05:28] LABS: ALBUMIN 2.3 g/dl (3.3-4.9); ALBUMIN/GLOBULIN RATIO 0.71; BILIRUBIN,INDIRECT 0.3 mg/dl (0-1.1); BILIRUBIN,TOTAL 0.3 mg/dl (0.2-1.3); CALCIUM 8.3 mg/dl (8.4-10.2); CREATININE 0.68 mg/dl (0.44-1.00); TOTAL PROTEIN 5.5 g/dl (6.1-8.1)
[2017-05-17] MEDS: AMPICILLIN 500 MG in SOD CHLORIDE 0.9% 50 ML IVPB SCH ×3 (06:41→17:31)
[2017-05-17 08:30] VITALS: BP 126/58; RESP 18
[2017-05-17] MEDS: FAMOTIDINE 20 MG TAB PO SCH ×2 (08:34→21:06)
[2017-05-17] MEDS: HYDROCODONE/APAP (10/325) TAB PO PRN ×2 (13:40→21:06)
[2017-05-17] MEDS ORDERED: SOD CHLORIDE 0.9% 250 ML IV* ONE (15:33)
--- NOTE | 2017-05-17 15:39 | PN ---
Date/Time of Note Date/Time of Note DATE: 05/17/17 TIME: 15:38 Assessment/Plan VTE Prophylaxis VTE Prophylaxis Intervention: SCD's Lines/Catheters IV Catheter Type (from Nrs): Peripheral IV Urinary Cath still in place: No Assessment/Plan Chief Complaint/Hosp Course Assessment/Plan: 81-year-old female with recent R colectomy 11.3 for colon ca presented with abd pain, found to have sepsis from anastomotic leak warranting surgical repair which pt underwent 05.08. . anastomotic leak with resultant peritonitis causing sepsis-had been resolving , however WBCs again increased and pt with abd pain.abx coverage expanded with Flagyl for anaerobes - continue Flagyl, levoflox/amp. Per discussion with general surgeon earlier, he advised 10-14 days abx given bowel perforation. End of therapy 05.18-05.22 -drain management as per surgery 2. pulmonary fibrosis: as per pulm 3. h/o esophagitis and gastritis: cont home h2b 4. colon ca: outpatient onc f/u 5. Anemia: No signs of any bleeding, hemoglobin hovering in the low to mid 7 range -We will order for PRBC transfusion today amenable to SNF however insurance won't cover it? CM on [id number] final recommendations from them Problems: Subjective 24 Hr Interval Summary Free Text/Dictation Per nursing staff, patient tolerating p.o. diet. Exam/Review of Systems Vital Signs Vitals Vital Signs Date Time Temp Pulse Resp B/P Pulse Ox O2 Delivery O2 Flow Rate FiO2 05/17/17 09:00 Nasal Cannula 2.0 05/17/17 08:30 98.2 78 18 126/58 99 Intake and Output 05/16/17 05/16/17 05/17/17 14:59 22:59 06:59 Intake Total 150 ml 1710 ml 150 ml Output Total 2527 ml Balance 150 ml -817 ml 150 ml Exam nad, lying in bed S1, S2 heard no mrg lungs clear Some mild ttp epigastric region drains with serosang output no edema Results Result Diagram: 05/17/178 05/17/17427 Results 24 hrs Laboratory Tests Test 05/17/17 04:28 White Blood Count 14.1 H Red Blood Count 2.99 L Hemoglobin 7.3 L Hematocrit 23.3 L Mean Corpuscular Volume 77.9 L Mean Corpuscular Hemoglobin 24.4 L Mean Corpuscular Hemoglobin Concent 31.3 L Red Cell Distribution Width 27.6 H Platelet Count 460 H Mean Platelet Volume 8.7 Neutrophils % 82.7 H Lymphocytes % 6.4 L Monocytes % 9.1 Eosinophils % 0.5 Basophils % 0.1 Nucleated Red Blood Cells % 0.0 Neutrophils # 11.6 H Lymphocytes # 0.9 Monocytes # 1.3 H Eosinophils # 0.1 Basophils # 0.0 Nucleated Red Blood Cells # 0.0 Sodium Level 139 Potassium Level 4.0 Chloride Level 101 Carbon Dioxide Level 32 H Anion Gap 10 Blood Urea Nitrogen 5 L Creatinine 0.68 Glucose Level 100 Calcium Level 8.3 L Total Bilirubin 0.3 Direct Bilirubin 0.00 Indirect Bilirubin 0.3 Aspartate Amino Transf (AST/SGOT) 15 Alanine Aminotransferase (ALT/SGPT) 29 Alkaline Phosphatase 91 Total Protein 5.5 L Albumin 2.3 L Globulin 3.20 Albumin/Globulin Ratio 0.71 Medications Medications Current Medications Morphine Sulfate (morphine) 2 mg Q4H PRN IV PAIN LEVEL 7-10 Last administered on 05/13/17 21:01; Admin Dose 2 MG; Start 05/07/17 at 22:30 Hydromorphone HCl 0.5 mg 0.5 mg Q3H PRN IV PAIN Last administered on 20:00; Admin Dose 0.5 MG; Start 05/08/17 at 06:15 Ondansetron HCl/ Dextrose (Zofran Inj/D5W) 54 ml @ 108 mls/hr Q6H PRN IV NAUSEA AND/OR VOMITING Last administered on 05/11/17 12:53; Admin Dose 108 MLS /HR; Start 05/08/17 at 06:30 Famotidine (Pepcid) 20 mg BID PO Last administered on 05/17/17 08:34; Admin Dose 20 MG; Start 05/10/17 at 21:00 Levofloxacin 750 mg 750 mg Q48H NGT Last administered on 05/16/17 05:45; Admin Dose 750 MG; Start 05/12/17 at 06:00 Ampicillin/Sodium Chloride (Ampicillin/NS) 50 ml @ 100 mls/hr Q6 IVPB Last administered on 05/17/17 12:01; Admin Dose 100 MLS/HR; Start 05/11/17 at 18: 00 Acetaminophen/ Hydrocodone Bitart 1 tab 1 tab Q6H PRN PO PAIN Last administered on 05/17/17 13:40; Admin Dose 1 TAB; Start 05/13/17 at 00:00 Metronidazole (Flagyl 500 Mg (Pmx)) 100 ml @ 100 mls/hr Q8 IVPB Last administered on 05/17/17 13:16; Admin Dose 100 MLS/HR; Start 05/17/17 at 05: 00 SARAH AVILA May 17, 2017 15:39
--- NOTE | 2017-05-17 20:11 | CONS ---
DATE OF ADMISSION: 05/07/2017 DATE OF CONSULTATION: 05/17/2017 INFECTIOUS DISEASE CONSULTATION REASON FOR CONSULTATION: Antibiotic management. HISTORY OF PRESENT ILLNESS: Olga Galvan is a 81-year-old female with numerous problems, who come s in with what appears to be an anastomotic leak and is being seen for antibiotic management. Her p ast problems include: 1. Gastritis. 2. Esophagitis. 3. Anemia. 4. Ascending colon adenocarcinoma, status post laparoscopic right colectomy 2 days prior to admissi on. She presented to the emergency room with abdominal pain and distention consistent with an anastomoti c leak. She is hemodynamically stable, meets sepsis criteria with fever and leukocytosis. In the e mergency room, her temperature was 101, her white count was 20.3, H and H of 9.4 and 31, platelet co unt 525,000, BUN and creatinine 12/0.7, glucose of 123. In the emergency room, a CT scan of the abd omen and pelvis showed free air in the right abdomen, scattered air in the mesentery adjacent to the region of the right hemicolectomy, consistent with anastomotic leak, pulmonary fibroses at the lung bases with honeycombing seen in the bilateral posterior costophrenic angles. There was also gallbl adder wall thickening versus pericholecystic fluid. She was initially admitted to the ICU, an OG tu be was placed and 900 mL of gastric contents were aspirated. Dr. Sheppard was called in consultation . HOSPITAL COURSE: The patient was seen by Dr. Sheppard and he noted ascending colon adenocarcinoma, s tatus post laparoscopic right colectomy or hemicolectomy, 04/30/2017, anastomotic leak mid staple ashley ne with open jaymie for about a 3 mm enterotomy with peritonitis and sepsis. His operation was lap aroscopic washout and repair of the anastomotic enterotomy, loop ileostomy with the lower opening as the proximal ileum, with primary drainage and upper opening as the distal ileum going to the anasto mosis and colon, laparoscopic implantation of xenographic biological material over the anastomosis f or improved healing. The patient has been hospitalized for a significant period of time. She has a bdominal pain, significant leukocytosis. CT scan with free air and contrast leak. Her white count was again increased to 13.5 on 05/16/2017. She is on Flagyl. On 05/16/2017, she was on levofloxaci n and ampicillin. The surgeon advised 10 to 14 days of antibiotics given bowel perforation. She soto s pulmonary fibrosis, esophagitis and gastritis, as well as colon cancer, which was operated on. PAST MEDICAL HISTORY: Operations as outlined. FAMILY HISTORY: Noncontributory. SOCIAL HISTORY: She does not smoke, drink or abuse drugs. ALLERGIES: NONE TO PENICILLIN, SULFA OR FOODS. MEDICATIONS: Per chart. REVIEW OF SYSTEMS: As per HPI. PHYSICAL EXAMINATION: GENERAL: The patient is an elderly appearing female who is chronically ill, in no acute distress at the present time. VITAL SIGNS: Stable. She is afebrile. SKIN: Without generalized rash. HEENT: Within normal limits. NECK: Supple. LYMPH NODES: None palpable. CHEST: Decreased breath sounds at the bases. HEART: Without murmur or gallop. ABDOMEN: Soft, nontender. She has evidence of an ileostomy with a proximal and distal loop. She h as drains in the abdomen as well. EXTREMITIES: Without cyanosis, clubbing or edema. RECTAL AND GENITAL: Deferred. NEUROLOGIC: No focal neurological abnormality. IMPRESSION AND PLAN: The patient is currently on Levaquin, Flagyl and ampicillin. She grew out Kle bsiella pneumoniae sensitive to Cipro and Levaquin, Escherichia coli also sensitive, and Enterococcu s sensitive to ampicillin. The significance of the enterococcus is always a question. The ampicill in, she is getting IV piggyback, which is appropriate, Levaquin, she is getting by p.o., and Flagyl, she could get p.o. or IV. We will continue her on this current regimen, and we will observe her wh ite count, currently at 14.1. I will dictate my findings to the hospitalist and to Dr. Sheppard, Dr. Sandra, . Dictated By: JERICHO DUNHAM MD, JD/NONI Conf#: [id number] DID#: [id number] CC: KEYLA FLORES MD; MICHELLE SHEPPARD MD; ANAYA SANDRA MD;*EndCC*
[2017-05-17 21:00] VITALS: BP 116/56; PULSE 75; RESP 18
[2017-05-17 22:56] VITALS: BP 138/62; PULSE 71; RESP 17
[2017-05-17 23:13] VITALS: BP 140/62; PULSE 73; RESP 17
--- NOTE | 2017-05-17 23:24 | PN ---
Date/Time of Note Date/Time of Note DATE: 05/17/17 TIME: 23:16 Assessment/Plan Lines/Catheters IV Catheter Type (from [facility]): Peripheral IV Aguilar in Place (from [facility]): No Assessment/Plan Chief Complaint/Hosp Course 1. Abdominal pain, significant leukocytosis, CT with free air and contrast leak at anastomosis with resultant peritonitis and sepsis; s/p ascending colon adenocarcinoma status post laparoscopic right colectomy 04/30/17; Anastomotic leak mid staple line with open jaymie for about a 3 mm enterotomy with peritonitis and sepsis; Improved. Bowel function. Repeat CT noted. -will d/w IR if possible drainage -abx per ID (input appreciated) -IVF/supportive -IS -justin drain care -ambulate/PT -diet -pulmonary toilette 2. 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 -onc follow up as outpt 3. Esophagitis -Diet and lifestyle optimization -Antacids 4. Hemorrhoids -Dietary and lifestyle optimization 5. Gastritis -Diet and lifestyle optimization -Antacids 6. Anemia secondary to above -As above 7. Hx GI bleed, multifactorial, secondary to above. Stable -Monitor -As above Thank you, Problems: Subjective 24 Hr Interval Summary Feels weak. CT noted. Increasing wbc with neutrophils. Midepigastric pain, min nausea. Appetite improved. No sob, congested cough, cp, palpitations, soto, dizziness, n/v/d/dysuria. Exam/Review of Systems Vital Signs Vitals Vital Signs Date Time Temp Pulse Resp B/P Pulse Ox O2 Delivery O2 Flow Rate FiO2 05/17/17 09:00 Nasal Cannula 2.0 05/17/17 08:30 98.2 78 18 126/58 99 Intake and Output 05/16/17 05/16/17 05/17/17 15:00 23:00 07:00 Intake Total 150 ml 1710 ml 150 ml Output Total 2527 ml Balance 150 ml -817 ml 150 ml Exam Free Text/Dictation Constitutional: alert, oriented Psych: nl mood/affect and anxious Head: atraumatic, normocephalic Eyes: EOMI, PERRL, nl conjunctiva, No icteric ENMT: mucosa pink and somewhat dry, nl external ears & nose, nl lips & teeth; ng tube Neck: non-tender, supple, No jvd Respiratory: normal air movement, No congested cough, No labored breathing; extubated Cardiovascular: no regular rate and rhythm, No edema; ST Gastrointestinal: Min tender epigastric. No erythema/drainage/bruising. Ileostomy pink and moist with gas/ formed stool; midline incision site dry; Both JPs serosang. Musculoskeletal: nl extremities to inspection, No joint tenderness, Min range of motion. Extremities: normal pulses, No calf tenderness, No cyanosis Neurological: nl mental status, nl speech, nl strength Skin: nl turgor, No diaphoresis, No rash or lesions Lymph: nl lymph nodes Results Free Text/Dictation CT: 1. Status post right hemicolectomy with an ileocolic anastomosis. In the interval since prior exam, there has been a right lower quadrant loop ileostomy. Bowel loops are decompressed without obstruction. Negative for evidence of extravasated contrast at the ileocolic anastomosis on today's scan. 2. Status post placement of a surgical drain inferior to the liver terminating in the right paracolic gutter. There is inflamed fat with pockets of fluid in the right paracolic gutter in keeping with infection. Negative for rim- enhancing abscess. 3. Small subcapsular abscesses overlying the right hepatic lobe are new since prior exam. Dominant subcapsular liver abscesses have been described above. 4. Status post placement of a surgical drain in the pelvis. No fluid collections are identified along the course of this drain. 5. New nodule left adrenal gland may represent a small adrenal abscess in this clinical setting. Recommend attention on follow-up imaging. 6. Gallbladder wall thickening is nonspecific and is likely related to adjacent subcapsular liver abscesses. Gallbladder could better be evaluated with right upper quadrant ultrasound or HIDA scan if the clinical situation warrants. Result Diagram: 05/17/17 0428 05/17/17 0428 MICHELLE BOURNE MD May 17, 2017 23:24
[2017-05-17 23:29] VITALS: BP 142/70; PULSE 71; RESP 16
[2017-05-18] VITALS (7 sets, daily range): BP systolic 138–149; BP diastolic 60–72; PULSE 68–74; RESP 16–19
[2017-05-18] MEDS: AMPICILLIN 500 MG in SOD CHLORIDE 0.9% 50 ML IVPB SCH ×4 (02:34→17:04)
[2017-05-18] MEDS: LEVOFLOXACIN 750 MG TABLET NGT SCH (06:01)
[2017-05-18] MEDS: metroNIDAZOLE 500 MG/NS (PMX) 100 ML IVPB SCH ×3 (06:02→22:57)
[2017-05-18] MEDS: HYDROCODONE/APAP (10/325) TAB PO PRN (06:30)
[2017-05-18 07:29] LABS: ABNORMAL IP MESSAGE 1; BASOPHIL # 0.1 10^3/ul (0.0-0.1); BASOPHILS % 0.4 % (0.0-2.0); EOSINOPHILS # 0.1 10^3/ul (0.0-0.5); EOSINOPHILS % 0.6 % (0.0-7.0); HEMATOCRIT 29.1 % (37.0-47.0); HEMOGLOBIN 9.2 g/dl (12.0-16.0); LYMPHOCYTES % 7.1 % (15.0-51.0); MEAN CORPUSCULAR HEMOGLOBIN 25.3 pg (29.0-33.0); MEAN CORPUSCULAR HGB CONC 31.6 g/dl (32.0-37.0); MEAN CORPUSCULAR VOLUME 79.9 fl (82.0-101.0); MEAN PLATELET VOLUME 9.1 fl (7.4-10.4); MONOCYTE # 1.3 10^3/ul (0.3-0.9); MONOCYTES % 9.4 % (0.0-11.0); NEUTROPHIL # 11.4 10^3/ul (1.6-7.5); NEUTROPHILS % 81.1 % (39.0-77.0); RED BLOOD COUNT 3.64 10^6/ul (4.20-5.40); RED CELL DISTRIBUTION WIDTH 25.8 % (11.5-14.5)
[2017-05-18 07:30] LABS: POSITIVE DIFF @See below
[2017-05-18 07:31] LABS: PLATELET COUNT 554 10^3/UL (140-415)
[2017-05-18 07:55] LABS: CALCIUM 8.1 mg/dl (8.4-10.2); CREATININE 0.58 mg/dl (0.44-1.00); POTASSIUM 3.2 mmol/L (3.5-5.1)
[2017-05-18] MEDS: morphine 2 MG INJ IV PRN (08:23)
[2017-05-18] MEDS: FAMOTIDINE 20 MG TAB PO SCH ×2 (08:55→21:00)
--- NOTE | 2017-05-18 11:36 | CONS ---
Date/Time of Note Date/Time of Note DATE: 05/18/17 TIME: 11:34 Assessment/Plan Assessment/Plan Additional Assessment/Plan Assessment and recommendations; 1. Patient admitted with acute abdomen requiring laparotomy due to anastomotic leak with significant clinical improvement. 2. Status post respiratory failure. 3. Anemia. 4. History of colon cancer. Continue current treatment. Will obtain follow-up chest x-ray. Consultation Date/Type/Reason Admit Date/Time May 07, 2017 at 20:57 Initial Consult Date 05/07/17 Type of Consultation: Pulmonary Referring Provider: ANA GALLEGO MD 24 HR Interval Summary Free Text/Dictation Patient's condition is stable. Currently sitting in a chair by bedside. Patient denies any shortness of breath, abdominal pain, nausea or vomiting. General exam; elderly woman, awake and alert. Currently in no distress. Exam/Review of Systems Vital Signs Vitals Vital Signs Date Time Temp Pulse Resp B/P Pulse Ox O2 Delivery O2 Flow Rate FiO2 05/18/17 09:00 Nasal Cannula 2.0 05/18/17 08:33 97.8 75 18 148/67 98 Intake and Output 05/17/17 05/17/17 05/18/17 15:00 23:00 07:00 Intake Total 250 ml 800 ml 120 ml Output Total 1730 ml 540 ml Balance 250 ml -930 ml -420 ml Exam HEENT exam; supple neck, no JVD. No lymphadenopathy. Midline trachea. No thyromegaly. Patient does have fair dentition. Chest exam; crackles in left lower lobe. Rest of the lung diop are clear. S1 -S2 audible, no murmurs. Regular rhythm. Abdomen exam; soft, nondistended. Bowel sounds audible. Extremities; no edema. [employer] exam; no focal deficit. Results Result Diagram: 05/18/1719 05/18/17 0619 Results 24 hrs Laboratory Tests Test 05/18/17 05:50 05/18/17 06:19 Lab Scanned Report BLOOD TRANSFUSION White Blood Count 14.0 H Red Blood Count 3.64 #L Hemoglobin 9.2 #L Hematocrit 29.1 #L Mean Corpuscular Volume 79.9 L Mean Corpuscular Hemoglobin 25.3 L Mean Corpuscular Hemoglobin Concent 31.6 L Red Cell Distribution Width 25.8 H Platelet Count 554 #H Mean Platelet Volume 9.1 Neutrophils % 81.1 H Lymphocytes % 7.1 L Monocytes % 9.4 Eosinophils % 0.6 Basophils % 0.4 Nucleated Red Blood Cells % 0.0 Neutrophils # 11.4 H Lymphocytes # 1.0 Monocytes # 1.3 H Eosinophils # 0.1 Basophils # 0.1 Nucleated Red Blood Cells # 0.0 Sodium Level 138 Potassium Level 3.2 L Chloride Level 101 Carbon Dioxide Level 30 Anion Gap 10 Blood Urea Nitrogen 8 Creatinine 0.58 Glucose Level 89 Calcium Level 8.1 L Medications Medications Current Medications Morphine Sulfate (morphine) 2 mg Q4H PRN IV PAIN LEVEL 7-10 Last administered on 05/18/17 08:23; Admin Dose 2 MG; Start 05/07/17 at 22:30 Hydromorphone HCl 0.5 mg 0.5 mg Q3H PRN IV PAIN Last administered on 20:00; Admin Dose 0.5 MG; Start 05/08/17 at 06:15 Ondansetron HCl/ Dextrose (Zofran Inj/D5W) 54 ml @ 108 mls/hr Q6H PRN IV NAUSEA AND/OR VOMITING Last administered on 05/11/17 12:53; Admin Dose 108 MLS /HR; Start 05/08/17 at 06:30 Famotidine (Pepcid) 20 mg BID PO Last administered on 05/18/17 08:55; Admin Dose 20 MG; Start 05/10/17 at 21:00 Levofloxacin 750 mg 750 mg Q48H NGT Last administered on 05/18/17 06:01; Admin Dose 750 MG; Start 05/12/17 at 06:00 Ampicillin/Sodium Chloride (Ampicillin/NS) 50 ml @ 100 mls/hr Q6 IVPB Last administered on 05/18/17 08:52; Admin Dose 100 MLS/HR; Start 05/11/17 at 18: 00 Acetaminophen/ Hydrocodone Bitart 1 tab 1 tab Q6H PRN PO PAIN Last administered on 05/18/17 06:30; Admin Dose 1 TAB; Start 05/13/17 at 00:00 Metronidazole (Flagyl 500 Mg (Pmx)) 100 ml @ 100 mls/hr Q8 IVPB Last administered on 05/18/17 06:02; Admin Dose 100 MLS/HR; Start 05/17/17 at 05: 00 QARNI,TRINH May 18, 2017 11:36
--- NOTE | 2017-05-18 14:19 | PN ---
Date/Time of Note Date/Time of Note DATE: 05/18/17 TIME: 14:08 Assessment/Plan Lines/Catheters IV Catheter Type (from [facility]): Peripheral IV Aguilar in Place (from [facility]): No Assessment/Plan Chief Complaint/Hosp Course 1. Abdominal pain, significant leukocytosis, CT with free air and contrast leak at anastomosis with resultant peritonitis and sepsis; s/p ascending colon adenocarcinoma status post laparoscopic right colectomy 04/30/17; Anastomotic leak mid staple line with open jaymie for about a 3 mm enterotomy with peritonitis and sepsis; Improved. Bowel function. Repeat CT noted. -will d/w IR if possible drainage -abx per ID (input appreciated) -refusing picc line -IVF/supportive -IS -justin drain care -ambulate/PT -diet -pulmonary toilette 2. 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 -onc follow up as outpt 3. Esophagitis -Diet and lifestyle optimization -Antacids 4. Hemorrhoids -Dietary and lifestyle optimization 5. Gastritis -Diet and lifestyle optimization -Antacids 6. Anemia secondary to above: s/p transfusion; improved -As above 7. Hx GI bleed, multifactorial, secondary to above. Stable -Monitor -As above Thank you. Patient seen and examined in collaboration with Dr. Jw Sheppard. Problems: Subjective 24 Hr Interval Summary Feels well. Improved energy. Nausea when eating. No fevers, chills, sob, congested cough, cp, palpitations, soto, dizziness, n/v/d/dysuria. Ostomy drainage well. Exam/Review of Systems Vital Signs Vitals Vital Signs Date Time Temp Pulse Resp B/P Pulse Ox O2 Delivery O2 Flow Rate FiO2 05/18/17 09:00 Nasal Cannula 2.0 05/18/17 08:33 97.8 75 18 148/67 98 Intake and Output 05/17/17 05/17/17 05/18/17 14:59 22:59 06:59 Intake Total 250 ml 800 ml 120 ml Output Total 1730 ml 540 ml Balance 250 ml -930 ml -420 ml Exam Free Text/Dictation Constitutional: alert, oriented Psych: nl mood/affect and anxious Head: atraumatic, normocephalic Eyes: EOMI, PERRL, nl conjunctiva, No icteric ENMT: mucosa pink and moist, nl external ears & nose, nl lips & teeth Neck: non-tender, supple, No jvd Respiratory: normal air movement, No congested cough, No labored breathing Cardiovascular: no regular rate and rhythm, No edema Gastrointestinal: Min tender epigastric. No erythema/drainage/bruising. Ileostomy pink and moist with gas/stool; midline incision site dry; lower JUSTIN serous; higher justin serosang. Musculoskeletal: nl extremities to inspection, No joint tenderness, Min range of motion. Extremities: normal pulses, No calf tenderness, No cyanosis Neurological: nl mental status, nl speech, nl strength Skin: nl turgor, No diaphoresis, No rash or lesions Lymph: nl lymph nodes Results Result Diagram: 05/18/17 0619 05/18/17 0619 GERALDO SILVA NP May 18, 2017 14:18
--- NOTE | 2017-05-18 15:26 | PN ---
Date/Time of Note Date/Time of Note DATE: 05/18/17 TIME: 15:24 Assessment/Plan VTE Prophylaxis VTE Prophylaxis Intervention: SCD's Lines/Catheters IV Catheter Type (from Nrs): Peripheral IV Urinary Cath still in place: No Assessment/Plan Chief Complaint/Hosp Course Assessment/Plan: 81-year-old female with recent R colectomy 11.3 for colon ca presented with abd pain, found to have sepsis from anastomotic leak warranting surgical repair which pt underwent 05.08. 1. anastomotic leak with resultant peritonitis causing sepsis-had been resolving , however WBCs again increased and pt with abd pain.abx coverage expanded with Flagyl for anaerobes - continue Flagyl, levoflox/amp. Per discussion with general surgeon earlier, he advised 10-14 days abx given bowel perforation. -Aloe up infectious disease recommendations -drain management as per surgery 2. pulmonary fibrosis: as per pulm 3. h/o esophagitis and gastritis: cont home h2b 4. colon ca: outpatient onc f/u 5. Anemia: Status post PRBC transfusion earlier yesterday -Hemoglobin stable, monitor, also check iron panel. amenable to SNF however insurance won't cover it? CM on [id number] final recommendations from them Problems: Subjective 24 Hr Interval Summary Free Text/Dictation Received blood transfusion yesterday, no acute events overnight, seen by ID team yesterday. Exam/Review of Systems Vital Signs Vitals Vital Signs Date Time Temp Pulse Resp B/P Pulse Ox O2 Delivery O2 Flow Rate FiO2 05/18/17 14:31 98.0 78 18 138/70 94 05/18/17 09:00 Nasal Cannula 2.0 Intake and Output 05/17/17 05/17/17 05/18/17 15:00 23:00 07:00 Intake Total 250 ml 800 ml 120 ml Output Total 1730 ml 540 ml Balance 250 ml -930 ml -420 ml Exam nad, lying in bed S1, S2 heard no mrg lungs clear Some mild ttp epigastric region drains with serosang output no edema Results Result Diagram: 05/18/1761805/18/17618 Results 24 hrs Laboratory Tests Test 05/18/17 05:50 05/18/17 06:19 Lab Scanned Report BLOOD TRANSFUSION White Blood Count 14.0 H Red Blood Count 3.64 #L Hemoglobin 9.2 #L Hematocrit 29.1 #L Mean Corpuscular Volume 79.9 L Mean Corpuscular Hemoglobin 25.3 L Mean Corpuscular Hemoglobin Concent 31.6 L Red Cell Distribution Width 25.8 H Platelet Count 554 #H Mean Platelet Volume 9.1 Neutrophils % 81.1 H Lymphocytes % 7.1 L Monocytes % 9.4 Eosinophils % 0.6 Basophils % 0.4 Nucleated Red Blood Cells % 0.0 Neutrophils # 11.4 H Lymphocytes # 1.0 Monocytes # 1.3 H Eosinophils # 0.1 Basophils # 0.1 Nucleated Red Blood Cells # 0.0 Sodium Level 138 Potassium Level 3.2 L Chloride Level 101 Carbon Dioxide Level 30 Anion Gap 10 Blood Urea Nitrogen 8 Creatinine 0.58 Glucose Level 89 Calcium Level 8.1 L Medications Medications Current Medications Morphine Sulfate (morphine) 2 mg Q4H PRN IV PAIN LEVEL 7-10 Last administered on 05/18/17 08:23; Admin Dose 2 MG; Start 05/07/17 at 22:30 Hydromorphone HCl 0.5 mg 0.5 mg Q3H PRN IV PAIN Last administered on 20:00; Admin Dose 0.5 MG; Start 05/08/17 at 06:15 Ondansetron HCl/ Dextrose (Zofran Inj/D5W) 54 ml @ 108 mls/hr Q6H PRN IV NAUSEA AND/OR VOMITING Last administered on 05/11/17 12:53; Admin Dose 108 MLS /HR; Start 05/08/17 at 06:30 Famotidine (Pepcid) 20 mg BID PO Last administered on 05/18/17 08:55; Admin Dose 20 MG; Start 05/10/17 at 21:00 Levofloxacin 750 mg 750 mg Q48H NGT Last administered on 05/18/17 06:01; Admin Dose 750 MG; Start 05/12/17 at 06:00 Ampicillin/Sodium Chloride (Ampicillin/NS) 50 ml @ 100 mls/hr Q6 IVPB Last administered on 05/18/17 12:30; Admin Dose 100 MLS/HR; Start 05/11/17 at 18: 00 Acetaminophen/ Hydrocodone Bitart 1 tab 1 tab Q6H PRN PO PAIN Last administered on 05/18/17 06:30; Admin Dose 1 TAB; Start 05/13/17 at 00:00 Metronidazole 100 ml @ 100 mls/hr Q8 IVPB Last administered on 05/18/17t 13: 54; Admin Dose 100 MLS/HR; Start 05/17/17 at 05:00 Potassium Chloride (KCl 40 MEQ/250 ML NS) 250 ml @ 62.5 mls/hr ONCE ONCE IVPB ; Start 05/18/17 at 15:30; Stop 05/18/17 at 19:29; Status UNSARAH MCCLURE May 18, 2017 15:26
[2017-05-18] MEDS ORDERED: POTASSIUM CHLORIDE 250 ML IVPB ONE (15:30)
[2017-05-18 17:21] LABS: IRON 20 ug/dl (35-150)
[2017-05-18 17:31] LABS: TOTAL IRON BINDING CAPACITY 189 ug/dl (241-421)
[2017-05-19] MEDS: AMPICILLIN 500 MG in SOD CHLORIDE 0.9% 50 ML IVPB SCH ×4 (00:08→18:42)
[2017-05-19 02:00] VITALS: BP 132/73; RESP 19
[2017-05-19] MEDS: metroNIDAZOLE 500 MG/NS (PMX) 100 ML IVPB SCH ×3 (06:41→22:19)
--- NOTE | 2017-05-19 06:53 | PN ---
DATE: 05/18/2017 SUBJECTIVE: No events overnight. No fevers. The patient is alert, looks comfortable. Denies pain . LABORATORY DATA: WBC today 14, platelets 554, neutrophils 81.1, BUN 8, creatinine 0.58, INDWELLINGS: Two JPs and colostomy. MICROBIOLOGY: Peritoneal fluid culture on 05/08/2017 grew Klebsiella pneumoniae, E. coli and Entero coccus species. Urine culture grew enterococcus species. Repeat urine and blood cultures have been negative. ANTIMICROBIALS: The patient is on ampicillin, Flagyl and Levaquin. DIAGNOSTICS: CT of the abdomen and pelvis 2 days ago revealed status post hemicolectomy with ileoco lonic anastomosis. No obstruction, no evidence of extravasated contrast, status post placement of s urgical drain inferior to the liver terminating in the right paracolic gutter that is inflamed fat w ith pockets of fluid in the right paracolic gutter in keeping with infection, negative for abscess. Small subcapsular abscess overlying the right hepatic lobe are new since prior exam. No fluid sherwin ection in the pelvis. New nodule left adrenal gland, may represent small adrenal abscess. Gallblad warren wall thickening, nonspecific, likely related to adjacent subcapsular liver abscesses. PHYSICAL EXAMINATION: GENERAL: Well-nourished, well-developed, elderly woman who is alert, in no distress. HEENT: Head atraumatic, normocephalic. Sclerae anicteric. Buccal mucosa pink. NECK: Supple. CHEST: Rise symmetrical. Breath sounds diminished to bases. HEART: S1, S2. ABDOMEN: Soft. Bowel sounds present. EXTREMITIES: Without cyanosis. ASSESSMENT: 1. Systemic inflammatory response syndrome with persistent leukocytosis. 2. History of colon adenocarcinoma, status post laparoscopic right colectomy on 04/30/2017, complic ated by anastomotic leak with evidence of hepatic abscesses, status post operation with laparoscopic washout and repair of anastomotic enterotomy loop ileostomy done by Dr. Sheppard. 4. Postoperative anastomotic leak status post laparoscopic washouts and repair of anastomotic enter otomy with an ileostomy on 05/08/2017 5. Evidence of small hepatic abscesses as per CT of the abdomen and pelvis with evidence of inflame d fat with pockets of fluid in the right pericolic gutter. 6. Left adrenal gland nodule, questionable small adrenal abscess. 7. Anemia. 8. History of GI bleeding. PLAN: The patient remains stable. She is not allergic to any antibiotics. She is being followed b y surgical team and seems to be on appropriate antimicrobials. Dictated By: STEPHENIE WAGNER IRIDOLOGIST for JERICHO MINA/NONI Conf#: [id number] DID#: [id number]
[2017-05-19 08:34] VITALS: BP 126/63; RESP 20
[2017-05-19] MEDS: ONDANSETRON INJ 8 MG in DEXTROSE 5% 50 ML IV PRN (09:57)
[2017-05-19] MEDS: FAMOTIDINE 20 MG TAB PO SCH ×2 (09:57→20:53)
--- NOTE | 2017-05-19 13:52 | CONS ---
Date/Time of Note Date/Time of Note DATE: 05/19/17 TIME: 13:50 Assessment/Plan Assessment/Plan Chief Complaint/Hosp Course SUBJECTIVE: No events overnight. No fevers. The patient is alert, looks comfortable. Denies pain. INDWELLINGS: Two JPs and colostomy. MICROBIOLOGY: Peritoneal fluid culture on 05/08/2017 grew Klebsiella pneumoniae , E. coli and Enterococcus species. Urine culture grew enterococcus species. Repeat urine and blood cultures have been negative. ANTIMICROBIALS: The patient is on ampicillin, Flagyl and Levaquin. DIAGNOSTICS: CT of the abdomen and pelvis 2 days ago revealed status post hemicolectomy with ileocolonic anastomosis. No obstruction, no evidence of extravasated contrast, status post placement of surgical drain inferior to the liver terminating in the right paracolic gutter that is inflamed fat with pockets of fluid in the right paracolic gutter in keeping with infection, negative for abscess. Small subcapsular abscess overlying the right hepatic lobe are new since prior exam. No fluid collection in the pelvis. New nodule left adrenal gland, may represent small adrenal abscess. Gallbladder wall thickening, nonspecific, likely related to adjacent subcapsular liver abscesses. PHYSICAL EXAMINATION: GENERAL: Well-nourished, well-developed, elderly woman who is alert, in no distress. HEENT: Head atraumatic, normocephalic. Sclerae anicteric. Buccal mucosa pink. NECK: Supple. CHEST: Rise symmetrical. Breath sounds diminished to bases. HEART: S1, S2. ABDOMEN: Soft. Bowel sounds present. EXTREMITIES: Without cyanosis. ASSESSMENT: 1. Systemic inflammatory response syndrome with persistent leukocytosis. 2. History of colon adenocarcinoma, status post laparoscopic right colectomy on 04/30/2017 4. Postoperative anastomotic leak status post laparoscopic washouts and repair of anastomotic enterotomy with an ileostomy on 05/08/2017 5. Evidence of small hepatic abscesses as per CT of the abdomen and pelvis with evidence of inflamed fat with pockets of fluid in the right pericolic gutter. 6. Left adrenal gland nodule, questionable small adrenal abscess. 7. Anemia. 8. History of GI bleeding. PLAN: The patient remains stable. Continue present care, antibiotics, follow surgical recommendations, send stool for C. difficile discussed with RN Problems: Consultation Date/Type/Reason Admit Date/Time May 07, 2017 at 20:57 Initial Consult Date 11/10/17 Type of Consultation: ID Referring Provider: ANA GALLEGO MD Exam/Review of Systems Vital Signs Vitals Vital Signs Date Time Temp Pulse Resp B/P Pulse Ox O2 Delivery O2 Flow Rate FiO2 05/19/17 13:09 2.0 05/19/17 08:34 98.3 82 20 126/63 97 05/19/17 07:45 Nasal Cannula Intake and Output 05/18/17 05/18/17 05/19/17 15:00 23:00 07:00 Intake Total 250 ml 1000 ml 800 ml Output Total 250 ml 1745 ml 1100 ml Balance 0 ml -745 ml -300 ml Results Result Diagram: 05/18/17 0619 05/18/17 0619 Results 24 hrs Laboratory Tests Test 05/18/17 16:52 Iron Level 20 L Total Iron Binding Capacity 189 L Percent Iron Saturation 11 L Medications Medications Current Medications Morphine Sulfate (morphine) 2 mg Q4H PRN IV PAIN LEVEL 7-10 Last administered on 05/18/17 08:23; Admin Dose 2 MG; Start 05/07/17 at 22:30 Hydromorphone HCl 0.5 mg 0.5 mg Q3H PRN IV PAIN Last administered on 20:00; Admin Dose 0.5 MG; Start 05/08/17 at 06:15 Ondansetron HCl/ Dextrose (Zofran Inj/D5W) 54 ml @ 108 mls/hr Q6H PRN IV NAUSEA AND/OR VOMITING Last administered on 05/19/17 09:57; Admin Dose 108 MLS /HR; Start 05/08/17 at 06:30 Famotidine (Pepcid) 20 mg BID PO Last administered on 05/19/17 09:57; Admin Dose 20 MG; Start 05/10/17 at 21:00 Levofloxacin 750 mg 750 mg Q48H NGT Last administered on 05/18/17 06:01; Admin Dose 750 MG; Start 05/12/17 at 06:00 Ampicillin/Sodium Chloride (Ampicillin/NS) 50 ml @ 100 mls/hr Q6 IVPB Last administered on 05/19/17 12:35; Admin Dose 100 MLS/HR; Start 05/11/17 at 18: 00 Acetaminophen/ Hydrocodone Bitart 1 tab 1 tab Q6H PRN PO PAIN Last administered on 05/18/17 06:30; Admin Dose 1 TAB; Start 05/13/17 at 00:00 Metronidazole (Flagyl 500 Mg (Pmx)) 100 ml @ 100 mls/hr Q8 IVPB Last administered on 05/19/17 06:41; Admin Dose 100 MLS/HR; Start 05/17/17 at 05: 00 STEPHENIE WAGNER NP May 19, 2017 13:52
--- NOTE | 2017-05-19 14:28 | PN ---
Date/Time of Note Date/Time of Note DATE: 05/19/17 TIME: 14:26 Assessment/Plan VTE Prophylaxis VTE Prophylaxis Intervention: SCD's Lines/Catheters IV Catheter Type (from Nrsg): Peripheral IV Urinary Cath still in place: No Assessment/Plan Chief Complaint/Hosp Course Assessment/Plan: 81-year-old female with recent R colectomy 11.3 for colon ca presented with abd pain, found to have sepsis from anastomotic leak warranting surgical repair which pt underwent 05.08. 1. anastomotic leak with resultant peritonitis causing sepsis-had been resolving , however WBCs again increased and pt with abd pain.abx coverage expanded with Flagyl for anaerobes - continue Flagyl, levoflox/amp. Per discussion with general surgeon earlier, he advised 10-14 days abx given bowel perforation. -Aloe up infectious disease recommendations -drain management as per surgery - f/u cdiff test (sent earlier by ID team) 2. pulmonary fibrosis: as per pulm 3. h/o esophagitis and gastritis: cont home h2b 4. colon ca: outpatient onc f/u 5. Anemia: Status post PRBC transfusion earlier yesterday -Hemoglobin stable, monitor, also check iron panel. amenable to SNF however insurance won't cover it? CM on [id number] final recommendations from them Problems: Subjective 24 Hr Interval Summary Free Text/Dictation Pt had some nausea this AM, relieved with Zofran. Seen by exchange consultant teams. Exam/Review of Systems Vital Signs Vitals Vital Signs Date Time Temp Pulse Resp B/P Pulse Ox O2 Delivery O2 Flow Rate FiO2 05/19/17 13:09 2.0 05/19/17 08:34 98.3 82 20 126/63 97 05/19/17 07:45 Nasal Cannula Intake and Output 05/18/17 05/18/17 05/19/17 15:00 23:00 07:00 Intake Total 250 ml 1000 ml 800 ml Output Total 250 ml 1745 ml 1100 ml Balance 0 ml -745 ml -300 ml Exam nad, lying in bed S1, S2 heard no mrg lungs clear Some mild ttp epigastric region drains with serosang output no edema Results Result Diagram: 05/18/1761805/18/17 0619 Results 24 hrs Laboratory Tests Test 05/18/17 16:52 Iron Level 20 L Total Iron Binding Capacity 189 L Percent Iron Saturation 11 L Medications Medications Current Medications Morphine Sulfate (morphine) 2 mg Q4H PRN IV PAIN LEVEL 7-10 Last administered on 05/18/17 08:23; Admin Dose 2 MG; Start 05/07/17 at 22:30 Hydromorphone HCl 0.5 mg 0.5 mg Q3H PRN IV PAIN Last administered on 20:00; Admin Dose 0.5 MG; Start 05/08/17 at 06:15 Ondansetron HCl/ Dextrose (Zofran Inj/D5W) 54 ml @ 108 mls/hr Q6H PRN IV NAUSEA AND/OR VOMITING Last administered on 05/19/17 09:57; Admin Dose 108 MLS /HR; Start 05/08/17 at 06:30 Famotidine (Pepcid) 20 mg BID PO Last administered on 05/19/17 09:57; Admin Dose 20 MG; Start 05/10/17 at 21:00 Levofloxacin 750 mg 750 mg Q48H NGT Last administered on 05/18/17 06:01; Admin Dose 750 MG; Start 05/12/17 at 06:00 Ampicillin/Sodium Chloride (Ampicillin/NS) 50 ml @ 100 mls/hr Q6 IVPB Last administered on 05/19/17 12:35; Admin Dose 100 MLS/HR; Start 05/11/17 at 18: 00 Acetaminophen/ Hydrocodone Bitart 1 tab 1 tab Q6H PRN PO PAIN Last administered on 05/18/17 06:30; Admin Dose 1 TAB; Start 05/13/17 at 00:00 Metronidazole (Flagyl 500 Mg (Pmx)) 100 ml @ 100 mls/hr Q8 IVPB Last administered on 05/19/17 14:13; Admin Dose 100 MLS/HR; Start 05/17/17 at 05: 00 SARAH AVILA 22, 2017 14:28
[2017-05-19 20:00] VITALS: BP 123/60; RESP 20
[2017-05-20] MEDS: AMPICILLIN 500 MG in SOD CHLORIDE 0.9% 50 ML IVPB SCH ×4 (00:33→18:24)
[2017-05-20 02:31] VITALS: BP 126/62; RESP 20
[2017-05-20 05:38] LABS: ABNORMAL IP MESSAGE 1; BASOPHIL # 0.1 10^3/ul (0.0-0.1); BASOPHILS % 0.5 % (0.0-2.0); EOSINOPHILS # 0.1 10^3/ul (0.0-0.5); EOSINOPHILS % 0.6 % (0.0-7.0); HEMATOCRIT 27.8 % (37.0-47.0); HEMOGLOBIN 8.9 g/dl (12.0-16.0); LYMPHOCYTES % 7.7 % (15.0-51.0); MEAN CORPUSCULAR HEMOGLOBIN 25.6 pg (29.0-33.0); MEAN CORPUSCULAR VOLUME 80.1 fl (82.0-101.0); MEAN PLATELET VOLUME 8.7 fl (7.4-10.4); MONOCYTE # 1.5 10^3/ul (0.3-0.9); MONOCYTES % 11.5 % (0.0-11.0); NEUTROPHIL # 9.9 10^3/ul (1.6-7.5); NEUTROPHILS % 78.4 % (39.0-77.0); PLATELET COUNT 636 10^3/UL (140-415); RED BLOOD COUNT 3.47 10^6/ul (4.20-5.40); WHITE BLOOD COUNT 12.7 10^3/ul (4.8-10.8)
[2017-05-20 05:43] LABS: CALCIUM 8.1 mg/dl (8.4-10.2); CREATININE 0.62 mg/dl (0.44-1.00); POTASSIUM 3.8 mmol/L (3.5-5.1)
[2017-05-20 05:44] LABS: POSITIVE DIFF @See below
[2017-05-20] MEDS: LEVOFLOXACIN 750 MG TABLET NGT SCH (05:58)
[2017-05-20] MEDS: metroNIDAZOLE 500 MG/NS (PMX) 100 ML IVPB SCH ×3 (06:41→22:05)
[2017-05-20 08:30] VITALS: BP 108/51; RESP 20
[2017-05-20] MEDS: FAMOTIDINE 20 MG TAB PO SCH ×2 (09:00→21:00)
[2017-05-20] MEDS: ONDANSETRON INJ 8 MG in DEXTROSE 5% 50 ML IV PRN (09:31)
--- NOTE | 2017-05-20 11:54 | CONS ---
Date/Time of Note Date/Time of Note DATE: 05/20/17 TIME: 11:53 Assessment/Plan Assessment/Plan Chief Complaint/Hosp Course SUBJECTIVE: No events overnight. No fevers. The patient is alert, looks comfortable. Denies pain. INDWELLINGS: Two JPs and colostomy. MICROBIOLOGY: Peritoneal fluid culture on 05/08/2017 grew Klebsiella pneumoniae , E. coli and Enterococcus species. Urine culture grew enterococcus species. Repeat urine and blood cultures have been negative. ANTIMICROBIALS: The patient is on ampicillin, Flagyl and Levaquin. DIAGNOSTICS: CT of the abdomen and pelvis 2 days ago revealed status post hemicolectomy with ileocolonic anastomosis. No obstruction, no evidence of extravasated contrast, status post placement of surgical drain inferior to the liver terminating in the right paracolic gutter that is inflamed fat with pockets of fluid in the right paracolic gutter in keeping with infection, negative for abscess. Small subcapsular abscess overlying the right hepatic lobe are new since prior exam. No fluid collection in the pelvis. New nodule left adrenal gland, may represent small adrenal abscess. Gallbladder wall thickening, nonspecific, likely related to adjacent subcapsular liver abscesses. PHYSICAL EXAMINATION: GENERAL: Well-nourished, well-developed, elderly woman who is alert, in no distress. HEENT: Head atraumatic, normocephalic. Sclerae anicteric. Buccal mucosa pink. NECK: Supple. CHEST: Rise symmetrical. Breath sounds diminished to bases. HEART: S1, S2. ABDOMEN: Soft. Bowel sounds present. EXTREMITIES: Without cyanosis. ASSESSMENT: 1. Systemic inflammatory response syndrome with persistent leukocytosis. 2. History of colon adenocarcinoma, status post laparoscopic right colectomy on 04/30/2017 4. Postoperative anastomotic leak status post laparoscopic washouts and repair of anastomotic enterotomy with an ileostomy on 05/08/2017 5. Evidence of small hepatic abscesses as per CT of the abdomen and pelvis with evidence of inflamed fat with pockets of fluid in the right pericolic gutter. 6. Left adrenal gland nodule, questionable small adrenal abscess. 7. Anemia. 8. History of GI bleeding. PLAN: The patient remains stable. Continue present care, antibiotics, follow surgical recommendations, pending stool for C. difficile discussed with RN Problems: Consultation Date/Type/Reason Admit Date/Time May 07, 2017 at 20:57 Initial Consult Date 05/07/17 Type of Consultation: ID Referring Provider: ANA GALLEGO MD Exam/Review of Systems Vital Signs Vitals Vital Signs Date Time Temp Pulse Resp B/P Pulse Ox O2 Delivery O2 Flow Rate FiO2 05/20/17 08:30 97.4 82 20 108/51 97 05/19/17 20:58 2.0 05/19/17 07:45 Nasal Cannula Intake and Output 05/19/17 05/19/17 05/20/17 14:59 22:59 06:59 Intake Total 104 ml 850 ml 200 ml Output Total 268 ml Balance 104 ml 850 ml -68 ml Results Result Diagram: 05/20/179 05/20/17 0429 Results 24 hrs Laboratory Tests Test 05/20/17 04:29 White Blood Count 12.7 H Red Blood Count 3.47 L Hemoglobin 8.9 L Hematocrit 27.8 L Mean Corpuscular Volume 80.1 L Mean Corpuscular Hemoglobin 25.6 L Mean Corpuscular Hemoglobin Concent 32.0 Red Cell Distribution Width Platelet Count 636 H Mean Platelet Volume 8.7 Neutrophils % 78.4 H Lymphocytes % 7.7 L Monocytes % 11.5 H Eosinophils % 0.6 Basophils % 0.5 Nucleated Red Blood Cells % 0.0 Neutrophils # 9.9 H Lymphocytes # 1.0 Monocytes # 1.5 H Eosinophils # 0.1 Basophils # 0.1 Nucleated Red Blood Cells # 0.0 Sodium Level 137 Potassium Level 3.8 Chloride Level 104 Carbon Dioxide Level 27 Anion Gap 10 Blood Urea Nitrogen 10 Creatinine 0.62 Glucose Level 83 Calcium Level 8.1 L Medications Medications Current Medications Morphine Sulfate (morphine) 2 mg Q4H PRN IV PAIN LEVEL 7-10 Last administered on 05/18/17 08:23; Admin Dose 2 MG; Start 05/07/17 at 22:30 Hydromorphone HCl 0.5 mg 0.5 mg Q3H PRN IV PAIN Last administered on 20:00; Admin Dose 0.5 MG; Start 05/08/17 at 06:15 Ondansetron HCl/ Dextrose (Zofran Inj/D5W) 54 ml @ 108 mls/hr Q6H PRN IV NAUSEA AND/OR VOMITING Last administered on 05/20/17 09:31; Admin Dose 108 MLS /HR; Start 05/08/17 at 06:30 Famotidine (Pepcid) 20 mg BID PO Last administered on 05/19/17 09:57; Admin Dose 20 MG; Start 05/10/17 at 21:00 Levofloxacin 750 mg 750 mg Q48H NGT Last administered on 05/20/17 05:58; Admin Dose 750 MG; Start 05/12/17 at 06:00 Ampicillin/Sodium Chloride (Ampicillin/NS) 50 ml @ 100 mls/hr Q6 IVPB Last administered on 05/20/17 05:58; Admin Dose 100 MLS/HR; Start 05/11/17 at 18: 00 Acetaminophen/ Hydrocodone Bitart 1 tab 1 tab Q6H PRN PO PAIN Last administered on 05/18/17 06:30; Admin Dose 1 TAB; Start 05/13/17 at 00:00 Metronidazole (Flagyl 500 Mg (Pmx)) 100 ml @ 100 mls/hr Q8 IVPB Last administered on 05/20/17 06:41; Admin Dose 100 MLS/HR; Start 05/17/17 at 05: 00 STEPHENIE WAGNER NP May 20, 2017 11:54
--- NOTE | 2017-05-20 13:33 | PN ---
Date/Time of Note Date/Time of Note DATE: 05/20/17 TIME: 13:32 Assessment/Plan VTE Prophylaxis VTE Prophylaxis Intervention: SCD's Lines/Catheters IV Catheter Type (from Nrsg): Peripheral IV Urinary Cath still in place: No Assessment/Plan Chief Complaint/Hosp Course Assessment/Plan: 81-year-old female with recent R colectomy 11.3 for colon ca presented with abd pain, found to have sepsis from anastomotic leak warranting surgical repair which pt underwent 05.08. 1. anastomotic leak with resultant peritonitis causing sepsis-had been resolving , however WBCs again increased and pt with abd pain.abx coverage expanded with Flagyl for anaerobes - continue Flagyl, levoflox/amp. Per discussion with general surgeon earlier, he advised 10-14 days abx given bowel perforation. -Follow up infectious disease recommendations -drain management as per surgery - f/u cdiff test (sent earlier by ID team) 2. pulmonary fibrosis: as per pulm 3. h/o esophagitis and gastritis: cont home h2b 4. colon ca: outpatient onc f/u 5. Anemia: Status post PRBC transfusion earlier this admission -Hemoglobin stable, monitor amenable to SNF however insurance won't cover it? CM on [id number] final recommendations from them Problems: Subjective 24 Hr Interval Summary Free Text/Dictation No acute events overnight, seen by ID team today. Exam/Review of Systems Vital Signs Vitals Vital Signs Date Time Temp Pulse Resp B/P Pulse Ox O2 Delivery O2 Flow Rate FiO2 05/20/17 08:30 97.4 82 20 108/51 97 05/19/17 20:58 2.0 05/19/17 07:45 Nasal Cannula Intake and Output 05/19/17 05/19/17 05/20/17 15:00 23:00 07:00 Intake Total 104 ml 850 ml 200 ml Output Total 268 ml Balance 104 ml 850 ml -68 ml Exam nad, lying in bed S1, S2 heard no mrg lungs clear Some mild ttp epigastric region drains with serosang output no edema Results Result Diagram: 05/20/179 05/20/17428 Results 24 hrs Laboratory Tests Test 05/20/17 04:29 White Blood Count 12.7 H Red Blood Count 3.47 L Hemoglobin 8.9 L Hematocrit 27.8 L Mean Corpuscular Volume 80.1 L Mean Corpuscular Hemoglobin 25.6 L Mean Corpuscular Hemoglobin Concent 32.0 Red Cell Distribution Width Platelet Count 636 H Mean Platelet Volume 8.7 Neutrophils % 78.4 H Lymphocytes % 7.7 L Monocytes % 11.5 H Eosinophils % 0.6 Basophils % 0.5 Nucleated Red Blood Cells % 0.0 Neutrophils # 9.9 H Lymphocytes # 1.0 Monocytes # 1.5 H Eosinophils # 0.1 Basophils # 0.1 Nucleated Red Blood Cells # 0.0 Sodium Level 137 Potassium Level 3.8 Chloride Level 104 Carbon Dioxide Level 27 Anion Gap 10 Blood Urea Nitrogen 10 Creatinine 0.62 Glucose Level 83 Calcium Level 8.1 L Medications Medications Current Medications Morphine Sulfate (morphine) 2 mg Q4H PRN IV PAIN LEVEL 7-10 Last administered on 05/18/17 08:23; Admin Dose 2 MG; Start 05/07/17 at 22:30 Hydromorphone HCl 0.5 mg 0.5 mg Q3H PRN IV PAIN Last administered on 20:00; Admin Dose 0.5 MG; Start 05/08/17 at 06:15 Ondansetron HCl/ Dextrose (Zofran Inj/D5W) 54 ml @ 108 mls/hr Q6H PRN IV NAUSEA AND/OR VOMITING Last administered on 05/20/17 09:31; Admin Dose 108 MLS /HR; Start 05/08/17 at 06:30 Famotidine (Pepcid) 20 mg BID PO Last administered on 05/19/17 09:57; Admin Dose 20 MG; Start 05/10/17 at 21:00 Levofloxacin 750 mg 750 mg Q48H NGT Last administered on 05/20/17 05:58; Admin Dose 750 MG; Start 05/12/17 at 06:00 Ampicillin/Sodium Chloride (Ampicillin/NS) 50 ml @ 100 mls/hr Q6 IVPB Last administered on 05/20/17 12:51; Admin Dose 100 MLS/HR; Start 05/11/17 at 18: 00 Acetaminophen/ Hydrocodone Bitart 1 tab 1 tab Q6H PRN PO PAIN Last administered on 05/18/17 06:30; Admin Dose 1 TAB; Start 05/13/17 at 00:00 Metronidazole (Flagyl 500 Mg (Pmx)) 100 ml @ 100 mls/hr Q8 IVPB Last administered on 05/20/17t 06:41; Admin Dose 100 MLS/HR; Start 05/17/17 at 05: 00 SARAH AVILA May 20, 2017 13:33
[2017-05-20 20:09] VITALS: BP 141/63; RESP 22
--- NOTE | 2017-05-20 23:41 | PN ---
Date/Time of Note Date/Time of Note DATE: 05/20/17 TIME: 23:40 Assessment/Plan Lines/Catheters IV Catheter Type (from [facility]): Peripheral IV Aguilar in Place (from [facility]): No Assessment/Plan Chief Complaint/Hosp Course 1. Abdominal pain, significant leukocytosis, CT with free air and contrast leak at anastomosis with resultant peritonitis and sepsis; s/p ascending colon adenocarcinoma status post laparoscopic right colectomy 04/30/17; Anastomotic leak mid staple line with open jaymie for about a 3 mm enterotomy with peritonitis and sepsis; Improved. Bowel function. Repeat CT noted. Leukocytosis improved; -abx per ID (input appreciated) -IVF/supportive -IS -justin drain care -ambulate/PT -diet -pulmonary toilette 2. 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 -onc follow up as outpt 3. Esophagitis -Diet and lifestyle optimization -Antacids 4. Hemorrhoids -Dietary and lifestyle optimization 5. Gastritis -Diet and lifestyle optimization -Antacids 6. Anemia secondary to above -As above 7. Hx GI bleed, multifactorial, secondary to above. Stable -Monitor -As above Thank you, Problems: Subjective 24 Hr Interval Summary Leukocytosis improving. Feels well. Improved energy. Nausea when eating. No fevers, chills, sob, congested cough, cp, palpitations, soto, dizziness, n/v/d/ dysuria. Ostomy drainage well. Exam/Review of Systems Vital Signs Vitals Vital Signs Date Time Temp Pulse Resp B/P Pulse Ox O2 Delivery O2 Flow Rate FiO2 05/20/17 20:09 98.3 82 22 141/63 100 05/20/17 19:47 2.0 05/19/17 07:45 Nasal Cannula Intake and Output 05/19/17 05/19/17 05/20/17 14:59 22:59 06:59 Intake Total 104 ml 850 ml 200 ml Output Total 1015 ml 268 ml Balance 104 ml -165 ml -68 ml Exam Free Text/Dictation Constitutional: alert, oriented Psych: nl mood/affect and anxious Head: atraumatic, normocephalic Eyes: EOMI, PERRL, nl conjunctiva, No icteric ENMT: mucosa pink and moist, nl external ears & nose, nl lips & teeth Neck: non-tender, supple, No jvd Respiratory: normal air movement, No congested cough, No labored breathing Cardiovascular: no regular rate and rhythm, No edema Gastrointestinal: Min tender epigastric. No erythema/drainage/bruising. Ileostomy pink and moist with gas/stool; midline incision site dry; JPs noted. Musculoskeletal: nl extremities to inspection, No joint tenderness, Min range of motion. Extremities: normal pulses, No calf tenderness, No cyanosis Neurological: nl mental status, nl speech, nl strength Skin: nl turgor, No diaphoresis, No rash or lesions Lymph: nl lymph nodes Results Result Diagram: 05/20/17 0429 05/20/17 0429 MICHELLE BOURNE MD May 20, 2017 23:41
[2017-05-21] MEDS: AMPICILLIN 500 MG in SOD CHLORIDE 0.9% 50 ML IVPB SCH ×4 (00:19→17:53)
[2017-05-21 02:00] VITALS: BP 139/75; RESP 19
[2017-05-21 05:17] LABS: ABNORMAL IP MESSAGE 1; BASOPHIL # 0.1 10^3/ul (0.0-0.1); BASOPHILS % 0.7 % (0.0-2.0); EOSINOPHILS # 0.1 10^3/ul (0.0-0.5); EOSINOPHILS % 0.7 % (0.0-7.0); HEMATOCRIT 29.2 % (37.0-47.0); HEMOGLOBIN 9.2 g/dl (12.0-16.0); LYMPHOCYTES % 9.6 % (15.0-51.0); MEAN CORPUSCULAR HEMOGLOBIN 25.4 pg (29.0-33.0); MEAN CORPUSCULAR HGB CONC 31.5 g/dl (32.0-37.0); MEAN CORPUSCULAR VOLUME 80.7 fl (82.0-101.0); MEAN PLATELET VOLUME 8.8 fl (7.4-10.4); MONOCYTE # 1.4 10^3/ul (0.3-0.9); MONOCYTES % 13.4 % (0.0-11.0); NEUTROPHIL # 7.9 10^3/ul (1.6-7.5); NEUTROPHILS % 73.9 % (39.0-77.0); PLATELET COUNT 591 10^3/UL (140-415); RED BLOOD COUNT 3.62 10^6/ul (4.20-5.40); WHITE BLOOD COUNT 10.7 10^3/ul (4.8-10.8)
[2017-05-21 05:28] LABS: POSITIVE DIFF @See below
[2017-05-21 05:56] LABS: CREATININE 0.67 mg/dl (0.44-1.00); POTASSIUM 3.6 mmol/L (3.5-5.1)
[2017-05-21] MEDS: ALBUTEROL/IPRATROPIUM (NEB) 3 ML AMP NEB PRN (06:01)
[2017-05-21] MEDS: metroNIDAZOLE 500 MG/NS (PMX) 100 ML IVPB SCH ×3 (06:34→21:02)
[2017-05-21 08:14] VITALS: BP 112/65; RESP 20
[2017-05-21] MEDS: FAMOTIDINE 20 MG TAB PO SCH ×2 (09:00→21:00)
--- NOTE | 2017-05-21 09:36 | CONS ---
Date/Time of Note Date/Time of Note DATE: 05/21/17 TIME: 09:35 Assessment/Plan Assessment/Plan Chief Complaint/Hosp Course ID PROGRESS NOTE CURRENT ABX: DAY # => Ampicillin, Levaquin, Flagyl 24H INTERVAL SUMMARY * A/A/O, WBC normalized today, afebrile, VSS, NAD, O2 via NC * 2 female family members in room assist w/translation [place]ian-Liberian. * , Denies:F/C/N/V/D/ABD pain/SOB/wheeze/CP/palpitations/dysuria/hematuria * MICRO: Peritoneal fluid culture on 05/08/2017 grew Klebsiella pneumoniae, E. coli and Enterococcus species. Urine culture grew enterococcus species. Repeat urine and blood cultures have been negative. * DIAGNOSTICS: CT A/P ago revealed status post hemicolectomy with ileocolonic anastomosis. No obstruction, no evidence of extravasated contrast, status post placement of surgical drain inferior to the liver terminating in the right paracolic gutter that is inflamed fat with pockets of fluid in the right paracolic gutter in keeping with infection, negative for abscess. Small subcapsular abscess overlying the right hepatic lobe are new since prior exam. No fluid collection in the pelvis. New nodule left adrenal gland, may represent small adrenal abscess. Gallbladder wall thickening, nonspecific, likely related to adjacent subcapsular liver abscesses. PHYSICAL EXAMINATION: GENERAL: VSS, NAD HEENT: AT, NC, anicteric, moist oral membranes , O2 via NC NECK: Trach midline, supple CHEST: Equal chest rise bilaterally, without dyspnea on observation HEART: Radial pulse RRR ABDOMEN: Soft, ALTAGRACIA x2 EXT: Warm, moves all ext, RUEXT line SKIN: No rash, no diaphoresis ID ASSESSMENT: 81 yo F admit with: 1. Systemic inflammatory response syndrome with persistent leukocytosis. 2. History of colon adenocarcinoma, status post laparoscopic right colectomy on 04/30/2017 4. Postoperative anastomotic leak status post laparoscopic washouts and repair of anastomotic enterotomy with an ileostomy on 05/08/2017 5. Evidence of small hepatic abscesses as per CT of the abdomen and pelvis with evidence of inflamed fat with pockets of fluid in the right pericolic gutter. 6. Left adrenal gland nodule, questionable small adrenal abscess. 7. Anemia. 8. History of GI bleeding. (-)MRSA ABX ALLERGY: NKDA INVASIVES: PICC CURRENT ABX:DAY # =>Ampicillin, Levaquin, Flagyl ID RECOMMENDATIONS/PLAN: 1. Continue current ABX over the weekend -> ID team colleague f/u next week . Problems: Consultation Date/Type/Reason Admit Date/Time May 07, 2017 at 20:57 Initial Consult Date 05/07/17 Type of Consultation: ID Referring Provider: ANA GALLEGO MD Exam/Review of Systems Vital Signs Vitals Vital Signs Date Time Temp Pulse Resp B/P Pulse Ox O2 Delivery O2 Flow Rate FiO2 05/21/17 08:14 97.9 92 20 112/65 97 05/21/17 06:02 Nasal Cannula 2.0 Intake and Output 05/20/17 05/20/17 05/21/17 15:00 23:00 07:00 Intake Total 150 ml 900 ml 800 ml Output Total 15 ml 570 ml Balance 150 ml 885 ml 230 ml Results Result Diagram: 05/21/17 0434 05/21/17 0434 Results 24 hrs Laboratory Tests Test 05/21/17 04:34 White Blood Count 10.7 Red Blood Count 3.62 L Hemoglobin 9.2 L Hematocrit 29.2 L Mean Corpuscular Volume 80.7 L Mean Corpuscular Hemoglobin 25.4 L Mean Corpuscular Hemoglobin Concent 31.5 L Red Cell Distribution Width Platelet Count 591 H Mean Platelet Volume 8.8 Neutrophils % 73.9 Lymphocytes % 9.6 L Monocytes % 13.4 H Eosinophils % 0.7 Basophils % 0.7 Nucleated Red Blood Cells % 0.0 Neutrophils # 7.9 H Lymphocytes # 1.0 Monocytes # 1.4 H Eosinophils # 0.1 Basophils # 0.1 Nucleated Red Blood Cells # 0.0 Sodium Level 138 Potassium Level 3.6 Chloride Level 105 Carbon Dioxide Level 25 Anion Gap 12 Blood Urea Nitrogen 10 Creatinine 0.67 Glucose Level 103 Calcium Level 8.0 L Medications Medications Current Medications Morphine Sulfate (morphine) 2 mg Q4H PRN IV PAIN LEVEL 7-10 Last administered on 05/18/17 08:23; Admin Dose 2 MG; Start 05/07/17 at 22:30 Hydromorphone HCl 0.5 mg 0.5 mg Q3H PRN IV PAIN Last administered on 20:00; Admin Dose 0.5 MG; Start 05/08/17 at 06:15 Ondansetron HCl/ Dextrose (Zofran Inj/D5W) 54 ml @ 108 mls/hr Q6H PRN IV NAUSEA AND/OR VOMITING Last administered on 05/20/17 09:31; Admin Dose 108 MLS /HR; Start 05/08/17 at 06:30 Famotidine (Pepcid) 20 mg BID PO Last administered on 05/19/17 09:57; Admin Dose 20 MG; Start 05/10/17 at 21:00 Levofloxacin 750 mg 750 mg Q48H NGT Last administered on 05/20/17 05:58; Admin Dose 750 MG; Start 05/12/17 at 06:00 Ampicillin/Sodium Chloride (Ampicillin/NS) 50 ml @ 100 mls/hr Q6 IVPB Last administered on 05/21/17 05:52; Admin Dose 100 MLS/HR; Start 05/11/17 at 18: 00 Acetaminophen/ Hydrocodone Bitart 1 tab 1 tab Q6H PRN PO PAIN Last administered on 05/18/17 06:30; Admin Dose 1 TAB; Start 05/13/17 at 00:00 Metronidazole (Flagyl 500 Mg (Pmx)) 100 ml @ 100 mls/hr Q8 IVPB Last administered on 05/21/17 06:34; Admin Dose 100 MLS/HR; Start 05/17/17 at 05: 00 FREDERIC MALONE NP May 21, 2017 09:36
--- NOTE | 2017-05-21 14:02 | PN ---
Date/Time of Note Date/Time of Note DATE: 05/21/17 TIME: 14:01 Assessment/Plan VTE Prophylaxis VTE Prophylaxis Intervention: SCD's Lines/Catheters IV [facility]ter Type (from [facility]): Peripheral IV Urinary Cath still in place: No Assessment/Plan Chief Complaint/Hosp Course Assessment/Plan: 81-year-old female with recent R colectomy 11.3 for colon ca presented with abd pain, found to have sepsis from anastomotic leak warranting surgical repair which pt underwent 05.08. 1. anastomotic leak with resultant peritonitis causing sepsis-slowly resolving. - continue Flagyl, levoflox/amp. Per discussion with general surgeon earlier, he advised 10-14 days abx given bowel perforation. -Follow up infectious disease recommendations -drain management as per surgery - f/u cdiff test (sent earlier by ID team) 2. pulmonary fibrosis: as per pulm 3. h/o esophagitis and gastritis: cont home h2b 4. colon ca: outpatient onc f/u 5. Anemia: Status post PRBC transfusion earlier this admission -Hemoglobin stable, monitor amenable to SNF however insurance won't cover it? CM on [id number] final recommendations from them Problems: Subjective 24 Hr Interval Summary Free Text/Dictation No acute events overnight, C. difficile test is still pending. Exam/Review of Systems Vital Signs Vitals Vital Signs Date Time Temp Pulse Resp B/P Pulse Ox O2 Delivery O2 Flow Rate FiO2 05/21/17 10:21 2.0 05/21/17 08:14 97.9 92 20 112/65 97 05/21/17 06:02 Nasal Cannula Intake and Output 05/20/17 05/20/17 05/21/17 15:00 23:00 07:00 Intake Total 150 ml 900 ml 800 ml Output Total 15 ml 570 ml Balance 150 ml 885 ml 230 ml Exam nad, lying in bed S1, S2 heard no mrg lungs clear Some mild ttp epigastric region drains with serosang output no edema Results Result Diagram: 05/21/17 0434 05/21/17 043 Results 24 hrs Laboratory Tests Test 05/21/17 04:34 White Blood Count 10.7 Red Blood Count 3.62 L Hemoglobin 9.2 L Hematocrit 29.2 L Mean Corpuscular Volume 80.7 L Mean Corpuscular Hemoglobin 25.4 L Mean Corpuscular Hemoglobin Concent 31.5 L Red Cell Distribution Width Platelet Count 591 H Mean Platelet Volume 8.8 Neutrophils % 73.9 Lymphocytes % 9.6 L Monocytes % 13.4 H Eosinophils % 0.7 Basophils % 0.7 Nucleated Red Blood Cells % 0.0 Neutrophils # 7.9 H Lymphocytes # 1.0 Monocytes # 1.4 H Eosinophils # 0.1 Basophils # 0.1 Nucleated Red Blood Cells # 0.0 Sodium Level 138 Potassium Level 3.6 Chloride Level 105 Carbon Dioxide Level 25 Anion Gap 12 Blood Urea Nitrogen 10 Creatinine 0.67 Glucose Level 103 Calcium Level 8.0 L Medications Medications Current Medications Morphine Sulfate (morphine) 2 mg Q4H PRN IV PAIN LEVEL 7-10 Last administered on 05/18/17 08:23; Admin Dose 2 MG; Start 05/07/17 at 22:30 Hydromorphone HCl 0.5 mg 0.5 mg Q3H PRN IV PAIN Last administered on 20:00; Admin Dose 0.5 MG; Start 05/08/17 at 06:15 Ondansetron HCl/ Dextrose (Zofran Inj/D5W) 54 ml @ 108 mls/hr Q6H PRN IV NAUSEA AND/OR VOMITING Last administered on 05/20/17 09:31; Admin Dose 108 MLS /HR; Start 05/08/17 at 06:30 Famotidine (Pepcid) 20 mg BID PO Last administered on 05/19/17 09:57; Admin Dose 20 MG; Start 05/10/17 at 21:00 Levofloxacin 750 mg 750 mg Q48H NGT Last administered on 05/20/17 05:58; Admin Dose 750 MG; Start 05/12/17 at 06:00 Ampicillin/Sodium Chloride (Ampicillin/NS) 50 ml @ 100 mls/hr Q6 IVPB Last administered on 05/21/17 12:37; Admin Dose 100 MLS/HR; Start 05/11/17 at 18: 00 Acetaminophen/ Hydrocodone Bitart 1 tab 1 tab Q6H PRN PO PAIN Last administered on 05/18/17 06:30; Admin Dose 1 TAB; Start 05/13/17 at 00:00 Metronidazole 100 ml @ 100 mls/hr Q8 IVPB Last administered on 05/21/17 06: 34; Admin Dose 100 MLS/HR; Start 05/17/17 at 05:00 Ferric Sodium Gluconate Complex/ Sodium Chloride (Ferrlecit/NS) 110 ml @ 100 mls/hr Q24H IVPB ; Start 05/21/17 at 14:00; Stop 05/23/17 at 15:05; Status SARAH DIAZ S. May 21, 2017 14:02
[2017-05-21] MEDS: SOD FERRIC GLUC COMPLX 125 MG in SOD CHLORIDE 0.9% 100 ML IVPB SCH (16:32)
[2017-05-21 19:38] VITALS: BP 147/69; RESP 20
[2017-05-22] MEDS: AMPICILLIN 500 MG in SOD CHLORIDE 0.9% 50 ML IVPB SCH ×3 (00:02→11:51)
[2017-05-22 02:26] VITALS: BP 133/69; RESP 20
[2017-05-22 05:15] LABS: ABNORMAL IP MESSAGE 1; HEMATOCRIT 30.6 % (37.0-47.0); HEMOGLOBIN 9.5 g/dl (12.0-16.0); MEAN CORPUSCULAR HEMOGLOBIN 25.6 pg (29.0-33.0); MEAN CORPUSCULAR VOLUME 82.5 fl (82.0-101.0); MEAN PLATELET VOLUME 8.8 fl (7.4-10.4); PLATELET COUNT 586 10^3/UL (140-415); RED BLOOD COUNT 3.71 10^6/ul (4.20-5.40); WHITE BLOOD COUNT 11.3 10^3/ul (4.8-10.8)
[2017-05-22] MEDS: LEVOFLOXACIN 750 MG TABLET NGT SCH (05:25)
[2017-05-22 05:35] LABS: POSITIVE DIFF @See below
[2017-05-22 06:10] LABS: CALCIUM 7.9 mg/dl (8.4-10.2); CREATININE 0.61 mg/dl (0.44-1.00); POTASSIUM 3.7 mmol/L (3.5-5.1)
[2017-05-22] MEDS: metroNIDAZOLE 500 MG/NS (PMX) 100 ML IVPB SCH ×3 (06:22→22:35)
[2017-05-22 07:38] VITALS: BP 132/65; RESP 18
[2017-05-22] MEDS: FAMOTIDINE 20 MG TAB PO SCH ×3 (08:14→20:11)
[2017-05-22 09:34] LABS: ANISOCYTOSIS 1+ (0-0); BASOPHILS % (M) 2 % (0-2); GIANT THROMBO% (M) 1 % (0-0); HYPOCHROMASIA 1+ (0-0); MICROCYTOSIS 1+ (0-0); MONOCYTES % (M) 11 % (0-11); MYELOCYTES % (M) 1 % (0-0); PLATELET ESTIMATE INCREASED; POIKILOCYTOSIS 2+ (0-0); POLYCHROMASIA 3+ (0-0)
[2017-05-22 10:36] LABS: BASOPHIL # 0.1 10^3/ul (0.0-0.1); BASOPHILS % 0.9 % (0.0-2.0); EOSINOPHILS # 0.1 10^3/ul (0.0-0.5); EOSINOPHILS % 0.9 % (0.0-7.0); LYMPHOCYTES # 1.1 10^3/ul (0.8-2.9); MONOCYTE # 1.4 10^3/ul (0.3-0.9); MONOCYTES % 12.7 % (0.0-11.0); NEUTROPHIL # 8.2 10^3/ul (1.6-7.5); NEUTROPHILS % 71.8 % (39.0-77.0)
--- NOTE | 2017-05-22 12:15 | PN ---
Date/Time of Note Date/Time of Note DATE: 05/22/17 TIME: 12:12 Assessment/Plan VTE Prophylaxis VTE Prophylaxis Intervention: SCD's Lines/Catheters IV Catheter Type (from Nrsg): Peripheral IV Urinary Cath still in place: No Assessment/Plan Chief Complaint/Hosp Course S: No acute events overnight. O: VS (see below) Exam nad, lying in bed S1, S2 heard no mrg lungs clear Some mild ttp epigastric region drains with serosang output no edema Assessment/Plan: 81-year-old female with recent R colectomy 11.3 for colon ca presented with abd pain, found to have sepsis from anastomotic leak warranting surgical repair which pt underwent 1. anastomotic leak with resultant peritonitis causing sepsis-slowly resolving. - continue Flagyl, levoflox/amp. Per discussion with general surgeon earlier, he advised 10-14 days abx given bowel perforation. -Follow up infectious disease recommendations -drain management as per surgery - f/u cdiff test (sent earlier by ID team) 2. pulmonary fibrosis: as per pulm 3. h/o esophagitis and gastritis: cont home h2b 4. colon ca: outpatient onc f/u 5. Anemia: Status post PRBC transfusion earlier this admission -Hemoglobin stable, monitor - for low Fe levels, on Ferricilict now x 3 days totlal amenable to SNF however insurance won't cover it? CM on [id number] final recommendations from them Problems: Exam/Review of Systems Vital Signs Vitals Vital Signs Date Time Temp Pulse Resp B/P Pulse Ox O2 Delivery O2 Flow Rate FiO2 05/22/17 07:38 97.9 81 18 132/65 99 05/22/17 03:01 2.0 05/21/17 06:02 Nasal Cannula Intake and Output 05/21/17 05/21/17 05/22/17 15:00 23:00 07:00 Intake Total 150 ml 960 ml 1100 ml Output Total 715 ml Balance 150 ml 245 ml 1100 ml Results Result Diagram: 05/22/17 0429 05/22/17 0429 Results 24 hrs Laboratory Tests Test 05/22/17 04:29 White Blood Count 11.3 H Red Blood Count 3.71 L Hemoglobin 9.5 L Hematocrit 30.6 L Mean Corpuscular Volume 82.5 Mean Corpuscular Hemoglobin 25.6 L Mean Corpuscular Hemoglobin Concent 31.0 L Red Cell Distribution Width Platelet Count 586 H Mean Platelet Volume 8.8 Neutrophils % 71.8 Segmented Neutrophils % (Manual) 80 H Lymphocytes % 10.0 L Lymphocytes % (Manual) 6 L Monocytes % 12.7 H Monocytes % (Manual) 11 Eosinophils % 0.9 Basophils % 0.9 Basophils % (Manual) 2 Myelocytes % (Manual) 1 H Nucleated Red Blood Cells % 0.0 Neutrophils # 8.2 H Absolute Lymphocytes (Manual) 0.6 L Lymphocytes # 1.1 Monocytes # 1.4 H Absolute Monocytes (Manual) 1.2 H Eosinophils # 0.1 Basophils # 0.1 Basophils # (Manual) 0.2 H Myelocytes # 0.1 H Nucleated Red Blood Cells # 0.0 Platelet Estimate INCREASED Giant Platelets 1 H Polychromasia 3+ Hypochromasia 1+ Poikilocytosis 2+ Anisocytosis 1+ Microcytosis 1+ Sodium Level 138 Potassium Level 3.7 Chloride Level 102 Carbon Dioxide Level 28 Anion Gap 12 Blood Urea Nitrogen 6 L Creatinine 0.61 Glucose Level 97 Calcium Level 7.9 L Medications Medications Current Medications Morphine Sulfate (morphine) 2 mg Q4H PRN IV PAIN LEVEL 7-10 Last administered on 05/18/17 08:23; Admin Dose 2 MG; Start 05/07/17 at 22:30 Hydromorphone HCl 0.5 mg 0.5 mg Q3H PRN IV PAIN Last administered on 20:00; Admin Dose 0.5 MG; Start 05/08/17 at 06:15 Ondansetron HCl/ Dextrose (Zofran Inj/D5W) 54 ml @ 108 mls/hr Q6H PRN IV NAUSEA AND/OR VOMITING Last administered on 05/20/17 09:31; Admin Dose 108 MLS /HR; Start 05/08/17 at 06:30 Famotidine (Pepcid) 20 mg BID PO Last administered on 05/19/17 09:57; Admin Dose 20 MG; Start 05/10/17 at 21:00 Levofloxacin 750 mg 750 mg Q48H NGT Last administered on 05/20/17 05:58; Admin Dose 750 MG; Start 05/12/17 at 06:00 Ampicillin/Sodium Chloride (Ampicillin/NS) 50 ml @ 100 mls/hr Q6 IVPB Last administered on 05/22/17 11:51; Admin Dose 100 MLS/HR; Start 05/11/17 at 18: 00 Acetaminophen/ Hydrocodone Bitart 1 tab 1 tab Q6H PRN PO PAIN Last administered on 05/18/17 06:30; Admin Dose 1 TAB; Start 05/13/17 at 00:00 Metronidazole 100 ml @ 100 mls/hr Q8 IVPB Last administered on 05/22/17 06: 22; Admin Dose 100 MLS/HR; Start 05/17/17 at 05:00 Ferric Sodium Gluconate Complex/ Sodium Chloride (Ferrlecit/NS) 110 ml @ 100 mls/hr Q24H IVPB Last administered on 05/21/17 16:32; Admin Dose 100 MLS/HR; Start 05/21/17 at 15:30; Stop 05/23/17 at 16:35 SARAH AVILA 25, 2017 12:15
[2017-05-22 14:00] VITALS: BP 138/66; RESP 20
--- NOTE | 2017-05-22 16:37 | CONS ---
Date/Time of Note Date/Time of Note DATE: 05/22/17 TIME: 16:27 Assessment/Plan Assessment/Plan Chief Complaint/Hosp Course ID PROGRESS NOTE CURRENT ABX: DAY # => Ampicillin#12 (05/11) , Levaquin #10 (05/12) , Flagyl # 6 (05/17) 24H INTERVAL SUMMARY * Doing well -- ambulated in [place] today without pain meds, DC planning in process insurance will not pay for SNF? * No complaints == A/A/O, WBC normalized today, afebrile, VSS, NAD, O2 via NC * Ileostomy w/liquid output, C.Diff (-) * MICRO: Peritoneal fluid culture on 05/08/2017 grew Klebsiella pneumoniae, E. coli and Enterococcus species. Urine culture grew enterococcus species. Repeat urine and blood cultures have been negative. * DIAGNOSTICS: CT A/P ago revealed status post hemicolectomy with ileocolonic anastomosis. No obstruction, no evidence of extravasated contrast, status post placement of surgical drain inferior to the liver terminating in the right paracolic gutter that is inflamed fat with pockets of fluid in the right paracolic gutter in keeping with infection, negative for abscess. Small subcapsular abscess overlying the right hepatic lobe are new since prior exam. No fluid collection in the pelvis. New nodule left adrenal gland, may represent small adrenal abscess. Gallbladder wall thickening, nonspecific, likely related to adjacent subcapsular liver abscesses. PHYSICAL EXAMINATION: GENERAL: VSS, NAD HEENT: AT, NC, anicteric, moist oral membranes , O2 via NC NECK: Trach midline, supple CHEST: Equal chest rise bilaterally, without dyspnea on observation HEART: Radial pulse RRR ABDOMEN: Soft, ALTAGRACIA x2, Ileostomy EXT: Warm, moves all ext, RUEXT line SKIN: No rash, no diaphoresis ID ASSESSMENT: 81 yo F admit with: 1. Systemic inflammatory response syndrome with persistent leukocytosis. * Mild leukocytosis, near normalized 2. History of colon adenocarcinoma, status post laparoscopic right colectomy on 04/30/2017 4. Postoperative anastomotic leak status post laparoscopic washouts and repair of anastomotic enterotomy with an ileostomy on 05/08/2017 * 05/08/17 BODY FLUID CULTURE Final Organism 1 K.PNEUMONIAE SSP PNEUMONIAE 3+ Organism 2 ESCHERICHIA COLI 2+ Organism 3 ENTEROCOCCUS SPECIES 1+ 5. Evidence of small hepatic abscesses as per CT of the abdomen and pelvis with evidence of inflamed fat with pockets of fluid in the right pericolic gutter. 6. Left adrenal gland nodule, questionable small adrenal abscess. 7. Anemia. 8. History of GI bleeding. (-)MRSA ABX ALLERGY: NKDA INVASIVES: PICC CURRENT ABX:DAY # =>Ampicillin, Levaquin, Flagyl ID RECOMMENDATIONS/PLAN: 1.Start ABX de-escalation -> DC Amoxicillin & Levaquin today 2. Continue Flagyl IV 3. See how she tolerates ABX taper tomorrow . . Problems: Consultation Date/Type/Reason Admit Date/Time May 07, 2017 at 20:57 Initial Consult Date 05/07/17 Type of Consultation: ID Referring Provider: ANA GALLEGO MD Exam/Review of Systems Vital Signs Vitals Vital Signs Date Time Temp Pulse Resp B/P Pulse Ox O2 Delivery O2 Flow Rate FiO2 05/22/17 14:00 98.1 74 20 138/66 98 05/22/17 03:01 2.0 05/21/17 06:02 Nasal Cannula Intake and Output 05/21/17 05/21/17 05/22/17 14:59 22:59 06:59 Intake Total 150 ml 960 ml 1100 ml Output Total 715 ml Balance 150 ml 245 ml 1100 ml Results Result Diagram: 05/22/179 05/22/179 Results 24 hrs Laboratory Tests Test 05/22/17 04:29 White Blood Count 11.3 H Red Blood Count 3.71 L Hemoglobin 9.5 L Hematocrit 30.6 L Mean Corpuscular Volume 82.5 Mean Corpuscular Hemoglobin 25.6 L Mean Corpuscular Hemoglobin Concent 31.0 L Red Cell Distribution Width Platelet Count 586 H Mean Platelet Volume 8.8 Neutrophils % 71.8 Segmented Neutrophils % (Manual) 80 H Lymphocytes % 10.0 L Lymphocytes % (Manual) 6 L Monocytes % 12.7 H Monocytes % (Manual) 11 Eosinophils % 0.9 Basophils % 0.9 Basophils % (Manual) 2 Myelocytes % (Manual) 1 H Nucleated Red Blood Cells % 0.0 Neutrophils # 8.2 H Absolute Lymphocytes (Manual) 0.6 L Lymphocytes # 1.1 Monocytes # 1.4 H Absolute Monocytes (Manual) 1.2 H Eosinophils # 0.1 Basophils # 0.1 Basophils # (Manual) 0.2 H Myelocytes # 0.1 H Nucleated Red Blood Cells # 0.0 Platelet Estimate INCREASED Giant Platelets 1 H Polychromasia 3+ Hypochromasia 1+ Poikilocytosis 2+ Anisocytosis 1+ Microcytosis 1+ Sodium Level 138 Potassium Level 3.7 Chloride Level 102 Carbon Dioxide Level 28 Anion Gap 12 Blood Urea Nitrogen 6 L Creatinine 0.61 Glucose Level 97 Calcium Level 7.9 L Medications Medications Current Medications Morphine Sulfate (morphine) 2 mg Q4H PRN IV PAIN LEVEL 7-10 Last administered on 05/18/17 08:23; Admin Dose 2 MG; Start 05/07/17 at 22:30 Hydromorphone HCl 0.5 mg 0.5 mg Q3H PRN IV PAIN Last administered on 20:00; Admin Dose 0.5 MG; Start 05/08/17 at 06:15 Ondansetron HCl/ Dextrose (Zofran Inj/D5W) 54 ml @ 108 mls/hr Q6H PRN IV NAUSEA AND/OR VOMITING Last administered on 05/20/17 09:31; Admin Dose 108 MLS /HR; Start 05/08/17 at 06:30 Famotidine (Pepcid) 20 mg BID PO Last administered on 05/19/17 09:57; Admin Dose 20 MG; Start 05/10/17 at 21:00 Levofloxacin 750 mg 750 mg Q48H NGT Last administered on 05/20/17 05:58; Admin Dose 750 MG; Start 05/12/17 at 06:00 Ampicillin/Sodium Chloride (Ampicillin/NS) 50 ml @ 100 mls/hr Q6 IVPB Last administered on 05/22/17 11:51; Admin Dose 100 MLS/HR; Start 05/11/17 at 18: 00 Acetaminophen/ Hydrocodone Bitart 1 tab 1 tab Q6H PRN PO PAIN Last administered on 05/18/17 06:30; Admin Dose 1 TAB; Start 05/13/17 at 00:00 Metronidazole 100 ml @ 100 mls/hr Q8 IVPB Last administered on 05/22/17 14: 16; Admin Dose 100 MLS/HR; Start 05/17/17 at 05:00 Ferric Sodium Gluconate Complex/ Sodium Chloride (Ferrlecit/NS) 110 ml @ 100 mls/hr Q24H IVPB Last administered on 05/21/17t 16:32; Admin Dose 100 MLS/HR; Start 05/21/17 at 15:30; Stop 05/23/17 at 16:35 FREDERIC MALONE NP May 22, 2017 16:37
[2017-05-22] MEDS: SOD FERRIC GLUC COMPLX 125 MG in SOD CHLORIDE 0.9% 100 ML IVPB SCH (16:43)
--- NOTE | 2017-05-22 17:53 | PN ---
Date/Time of Note Date/Time of Note DATE: 05/21/17 TIME: 17:51 Assessment/Plan Lines/Catheters IV Catheter Type (from [facility]): Peripheral IV Aguilar in Place (from [facility]): No Assessment/Plan Chief Complaint/Hosp Course 1. Abdominal pain, significant leukocytosis, CT with free air and contrast leak at anastomosis with resultant peritonitis and sepsis; s/p ascending colon adenocarcinoma status post laparoscopic right colectomy 04/30/17; Anastomotic leak mid staple line with open jaymie for about a 3 mm enterotomy with peritonitis and sepsis; Improved. Bowel function. Repeat CT noted. Leukocytosis improved; -abx per ID (input appreciated) -IVF/supportive -IS -justin drain care -ambulate/PT -diet -pulmonary toilette 2. 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 -onc follow up as outpt 3. Esophagitis -Diet and lifestyle optimization -Antacids 4. Hemorrhoids -Dietary and lifestyle optimization 5. Gastritis -Diet and lifestyle optimization -Antacids 6. Anemia secondary to above -As above 7. Hx GI bleed, multifactorial, secondary to above. Stable -Monitor -As above Thank you, Late entry 05/21 Problems: Subjective 24 Hr Interval Summary Leukocytosis resolved. Thrombocytosis slowly improving. Feels better but have nausea and occasional vomiting. Improved energy. No fevers, chills, sob, congested cough, cp, palpitations, soto, dizziness, n/v/d/dysuria. Ostomy drainage well. Exam/Review of Systems Vital Signs Vitals Vital Signs Date Time Temp Pulse Resp B/P Pulse Ox O2 Delivery O2 Flow Rate FiO2 05/22/17 14:00 98.1 74 20 138/66 98 05/22/17 03:01 2.0 05/21/17 06:02 Nasal Cannula Intake and Output 05/21/17 05/21/17 05/22/17 14:59 22:59 06:59 Intake Total 150 ml 960 ml 1100 ml Output Total 715 ml Balance 150 ml 245 ml 1100 ml Exam Free Text/Dictation Constitutional: alert, oriented Psych: nl mood/affect and anxious Head: atraumatic, normocephalic Eyes: EOMI, PERRL, nl conjunctiva, No icteric ENMT: mucosa pink and moist, nl external ears & nose, nl lips & teeth Neck: non-tender, supple, No jvd Respiratory: normal air movement, No congested cough, No labored breathing Cardiovascular: no regular rate and rhythm, No edema Gastrointestinal: Min tender epigastric. No erythema/drainage/bruising. Ileostomy pink and moist with gas/stool; midline incision site dry; JPs noted. Musculoskeletal: nl extremities to inspection, No joint tenderness, Min range of motion. Extremities: normal pulses, No calf tenderness, No cyanosis Neurological: nl mental status, nl speech, nl strength Skin: nl turgor, No diaphoresis, No rash or lesions Lymph: nl lymph nodes Results Result Diagram: 05/22/17 0429 05/22/17 0429 MICHELLE BOURNE MD May 22, 2017 17:53
--- NOTE | 2017-05-22 17:54 | PN ---
Date/Time of Note Date/Time of Note DATE: 05/22/17 TIME: 17:53 Assessment/Plan Lines/Catheters IV Catheter Type (from [facility]): Peripheral IV Aguilar in Place (from [facility]): No Assessment/Plan Chief Complaint/Hosp Course 1. Abdominal pain, significant leukocytosis, CT with free air and contrast leak at anastomosis with resultant peritonitis and sepsis; s/p ascending colon adenocarcinoma status post laparoscopic right colectomy 04/30/17; Anastomotic leak mid staple line with open jaymie for about a 3 mm enterotomy with peritonitis and sepsis; Improved. Bowel function. Repeat CT noted. Leukocytosis. -abx per ID (input appreciated) -IVF/supportive -IS -justin drain care -ambulate/PT -diet -pulmonary toilette 2. 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 -onc follow up as outpt 3. Esophagitis -Diet and lifestyle optimization -Antacids 4. Hemorrhoids -Dietary and lifestyle optimization 5. Gastritis -Diet and lifestyle optimization -Antacids 6. Anemia secondary to above -As above 7. Hx GI bleed, multifactorial, secondary to above. Stable -Monitor -As above Thank you, Problems: Subjective 24 Hr Interval Summary Leukocytosis. Thrombocytosis slowly improving. Feels better but have nausea and occasional vomiting. Improved energy. No fevers, chills, sob, congested cough, cp, palpitations, soto, dizziness, n/v/d/dysuria. Ostomy drainage well. Exam/Review of Systems Vital Signs Vitals Vital Signs Date Time Temp Pulse Resp B/P Pulse Ox O2 Delivery O2 Flow Rate FiO2 05/22/17 14:00 98.1 74 20 138/66 98 05/22/17 03:01 2.0 05/21/17 06:02 Nasal Cannula Intake and Output 05/21/17 05/21/17 05/22/17 14:59 22:59 06:59 Intake Total 150 ml 960 ml 1100 ml Output Total 715 ml Balance 150 ml 245 ml 1100 ml Exam Free Text/Dictation Constitutional: alert, oriented Psych: nl mood/affect and anxious Head: atraumatic, normocephalic Eyes: EOMI, PERRL, nl conjunctiva, No icteric ENMT: mucosa pink and moist, nl external ears & nose, nl lips & teeth Neck: non-tender, supple, No jvd Respiratory: normal air movement, No congested cough, No labored breathing Cardiovascular: no regular rate and rhythm, No edema Gastrointestinal: Min tender epigastric. No erythema/drainage/bruising. Ileostomy pink and moist with gas/stool; midline incision site dry; JPs noted. Musculoskeletal: nl extremities to inspection, No joint tenderness, Min range of motion. Extremities: normal pulses, No calf tenderness, No cyanosis Neurological: nl mental status, nl speech, nl strength Skin: nl turgor, No diaphoresis, No rash or lesions Lymph: nl lymph nodes Results Result Diagram: 05/22/17 0429 05/22/17 0429 MICHELLE BOURNE MD May 22, 2017 17:54
[2017-05-22 20:32] VITALS: BP 131/60; RESP 19
[2017-05-23] VITALS: BP 122/54; RESP 19
[2017-05-23 05:46] LABS: ABNORMAL IP MESSAGE 1; BASOPHIL # 0.1 10^3/ul (0.0-0.1); BASOPHILS % 1.1 % (0.0-2.0); EOSINOPHILS # 0.1 10^3/ul (0.0-0.5); EOSINOPHILS % 1.3 % (0.0-7.0); HEMATOCRIT 30.2 % (37.0-47.0); HEMOGLOBIN 9.7 g/dl (12.0-16.0); LYMPHOCYTES # 1.1 10^3/ul (0.8-2.9); LYMPHOCYTES % 10.4 % (15.0-51.0); MEAN CORPUSCULAR HEMOGLOBIN 26.4 pg (29.0-33.0); MEAN CORPUSCULAR HGB CONC 32.1 g/dl (32.0-37.0); MEAN CORPUSCULAR VOLUME 82.1 fl (82.0-101.0); MEAN PLATELET VOLUME 8.8 fl (7.4-10.4); MONOCYTE # 1.5 10^3/ul (0.3-0.9); MONOCYTES % 13.7 % (0.0-11.0); NEUTROPHIL # 7.5 10^3/ul (1.6-7.5); NEUTROPHILS % 70.1 % (39.0-77.0); PLATELET COUNT 532 10^3/UL (140-415); RED BLOOD COUNT 3.68 10^6/ul (4.20-5.40); WHITE BLOOD COUNT 10.7 10^3/ul (4.8-10.8)
[2017-05-23 05:54] LABS: POSITIVE DIFF @See below
[2017-05-23] MEDS: metroNIDAZOLE 500 MG/NS (PMX) 100 ML IVPB SCH ×3 (05:56→22:14)
[2017-05-23 06:33] LABS: CALCIUM 8.3 mg/dl (8.4-10.2); CREATININE 0.62 mg/dl (0.44-1.00); POTASSIUM 3.3 mmol/L (3.5-5.1)
[2017-05-23 08:29] VITALS: BP 112/62; RESP 18
[2017-05-23] MEDS: FAMOTIDINE 20 MG TAB PO SCH ×2 (08:36→20:05)
--- NOTE | 2017-05-23 12:12 | PN ---
Date/Time of Note Date/Time of Note DATE: 05/23/17 TIME: 12:10 Assessment/Plan VTE Prophylaxis VTE Prophylaxis Intervention: SCD's Lines/Catheters IV Catheter Type (from Nrs): [place] Urinary Cath still in place: No Assessment/Plan Chief Complaint/Hosp Course S: No acute events overnight, tolerating diet. O: VS (see below) Exam nad, lying in bed S1, S2 heard no mrg lungs clear Some mild ttp epigastric region drains with output no edema Assessment/Plan: 81-year-old female with recent R colectomy 11.3 for colon ca presented with abd pain, found to have sepsis from anastomotic leak warranting surgical repair which pt underwent 05.08. 1. anastomotic leak with resultant peritonitis causing sepsis-slowly resolving. - continue Flagyl. Per discussion with general surgeon earlier, he advised 10- 14 days abx given bowel perforation. -Follow up infectious disease recommendations -drain management as per surgery - f/u cdiff test was negative. 2. pulmonary fibrosis: as per pulm 3. h/o esophagitis and gastritis: cont home h2b 4. colon ca: outpatient onc f/u 5. Anemia: Status post PRBC transfusion earlier this admission -Hemoglobin stable, monitor - for low Fe levels, on Ferricilict now x 3 days total CM on [id number] final recommendations from them regarding insurance approval and placement options Problems: Exam/Review of Systems Vital Signs Vitals Vital Signs Date Time Temp Pulse Resp B/P Pulse Ox O2 Delivery O2 Flow Rate FiO2 05/23/17 08:29 97.7 88 18 112/62 96 05/22/17 03:01 2.0 05/21/17 06:02 Nasal Cannula Intake and Output 05/22/17 05/22/17 05/23/17 15:00 23:00 07:00 Intake Total 150 ml 930 ml 500 ml Output Total 915 ml 510 ml 815 ml Balance -765 ml 420 ml -315 ml Results Result Diagram: 05/23/17 0439 05/23/17 0439 Results 24 hrs Laboratory Tests Test 05/23/17 04:39 White Blood Count 10.7 Red Blood Count 3.68 L Hemoglobin 9.7 L Hematocrit 30.2 L Mean Corpuscular Volume 82.1 Mean Corpuscular Hemoglobin 26.4 L Mean Corpuscular Hemoglobin Concent 32.1 Red Cell Distribution Width Platelet Count 532 H Mean Platelet Volume 8.8 Neutrophils % 70.1 Lymphocytes % 10.4 L Monocytes % 13.7 H Eosinophils % 1.3 Basophils % 1.1 Nucleated Red Blood Cells % 0.0 Neutrophils # 7.5 Lymphocytes # 1.1 Monocytes # 1.5 H Eosinophils # 0.1 Basophils # 0.1 Nucleated Red Blood Cells # 0.0 Sodium Level 138 Potassium Level 3.3 L Chloride Level 104 Carbon Dioxide Level 27 Anion Gap 10 Blood Urea Nitrogen 6 L Creatinine 0.62 Glucose Level 86 Calcium Level 8.3 L Medications Medications Current Medications Morphine Sulfate (morphine) 2 mg Q4H PRN IV PAIN LEVEL 7-10 Last administered on 05/18/17 08:23; Admin Dose 2 MG; Start 05/07/17 at 22:30 Hydromorphone HCl 0.5 mg 0.5 mg Q3H PRN IV PAIN Last administered on 20:00; Admin Dose 0.5 MG; Start 05/08/17 at 06:15 Ondansetron HCl/ Dextrose (Zofran Inj/D5W) 54 ml @ 108 mls/hr Q6H PRN IV NAUSEA AND/OR VOMITING Last administered on 05/20/17 09:31; Admin Dose 108 MLS /HR; Start 05/08/17 at 06:30 Famotidine (Pepcid) 20 mg BID PO Last administered on 05/19/17 09:57; Admin Dose 20 MG; Start 05/10/17 at 21:00 Acetaminophen/ Hydrocodone Bitart 1 tab 1 tab Q6H PRN PO PAIN Last administered on 05/18/17 06:30; Admin Dose 1 TAB; Start 05/13/17 at 00:00 Metronidazole 100 ml @ 100 mls/hr Q8 IVPB Last administered on 05/23/17 05: 56; Admin Dose 100 MLS/HR; Start 05/17/17 at 05:00 Ferric Sodium Gluconate Complex/ Sodium Chloride (Ferrlecit/NS) 110 ml @ 100 mls/hr Q24H IVPB Last administered on 05/22/17 16:43; Admin Dose 100 MLS/HR; Start 05/21/17 at 15:30; Stop 05/23/17 at 16:35 SARAH AVILA May 23, 2017 12:12
[2017-05-23] MEDS ORDERED: POTASSIUM CHLORIDE 250 ML IVPB ONE (12:30)
[2017-05-23] MEDS: SOD FERRIC GLUC COMPLX 125 MG in SOD CHLORIDE 0.9% 100 ML IVPB SCH (15:09)
[2017-05-23 20:02] VITALS: BP 124/58; RESP 18
--- NOTE | 2017-05-23 21:40 | PN ---
Date/Time of Note Date/Time of Note DATE: 05/23/17 TIME: 21:39 Assessment/Plan Lines/Catheters IV Catheter Type (from [facility]): Peripheral IV Aguilar in Place (from [facility]): No Assessment/Plan Chief Complaint/Hosp Course 1. Abdominal pain, significant leukocytosis, CT with free air and contrast leak at anastomosis with resultant peritonitis and sepsis; s/p ascending colon adenocarcinoma status post laparoscopic right colectomy 04/30/17; Anastomotic leak mid staple line with open jaymie for about a 3 mm enterotomy with peritonitis and sepsis; Improved. Bowel function. Repeat CT noted. Leukocytosis. -abx per ID (input appreciated) -IVF/supportive -IS -justin drain care -ambulate/PT -diet -pulmonary toilette 2. 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 -onc follow up as outpt 3. Esophagitis -Diet and lifestyle optimization -Antacids 4. Hemorrhoids -Dietary and lifestyle optimization 5. Gastritis -Diet and lifestyle optimization -Antacids 6. Anemia secondary to above -As above 7. Hx GI bleed, multifactorial, secondary to above. Stable -Monitor -As above Thank you, Problems: Subjective 24 Hr Interval Summary Leukocytosis resolved. Thrombocytosis slowly improving. Feels better but have nausea and occasional vomiting. Improved energy. No fevers, chills, sob, congested cough, cp, palpitations, soto, dizziness, n/v/d/dysuria. Ostomy drainage well. Exam/Review of Systems Vital Signs Vitals Vital Signs Date Time Temp Pulse Resp B/P Pulse Ox O2 Delivery O2 Flow Rate FiO2 05/23/17 20:02 97.8 87 18 124/58 93 05/22/17 03:01 2.0 05/21/17 06:02 Nasal Cannula Intake and Output 05/22/17 05/22/17 05/23/17 15:00 23:00 07:00 Intake Total 150 ml 930 ml 500 ml Output Total 915 ml 510 ml 815 ml Balance -765 ml 420 ml -315 ml Exam Free Text/Dictation Constitutional: alert, oriented Psych: nl mood/affect and anxious Head: atraumatic, normocephalic Eyes: EOMI, PERRL, nl conjunctiva, No icteric ENMT: mucosa pink and moist, nl external ears & nose, nl lips & teeth Neck: non-tender, supple, No jvd Respiratory: normal air movement, No congested cough, No labored breathing Cardiovascular: no regular rate and rhythm, No edema Gastrointestinal: Min tender epigastric. No erythema/drainage/bruising. Ileostomy pink and moist with gas/stool; midline incision site dry; JPs noted. Musculoskeletal: nl extremities to inspection, No joint tenderness, Min range of motion. Extremities: normal pulses, No calf tenderness, No cyanosis Neurological: nl mental status, nl speech, nl strength Skin: nl turgor, No diaphoresis, No rash or lesions Lymph: nl lymph nodes Results Result Diagram: 05/23/17 0439 05/23/17 0439 MICHELLE BOURNE MD May 23, 2017 21:40
[2017-05-24 01:40] VITALS: BP 123/60; RESP 18
[2017-05-24 05:03] LABS: ABNORMAL IP MESSAGE 1; BASOPHIL # 0.1 10^3/ul (0.0-0.1); BASOPHILS % 0.9 % (0.0-2.0); EOSINOPHILS # 0.2 10^3/ul (0.0-0.5); EOSINOPHILS % 1.6 % (0.0-7.0); HEMATOCRIT 32.6 % (37.0-47.0); LYMPHOCYTES # 1.5 10^3/ul (0.8-2.9); LYMPHOCYTES % 13.6 % (15.0-51.0); MEAN CORPUSCULAR HEMOGLOBIN 25.6 pg (29.0-33.0); MEAN CORPUSCULAR HGB CONC 30.7 g/dl (32.0-37.0); MEAN CORPUSCULAR VOLUME 83.4 fl (82.0-101.0); MEAN PLATELET VOLUME 8.2 fl (7.4-10.4); MONOCYTE # 1.6 10^3/ul (0.3-0.9); MONOCYTES % 13.8 % (0.0-11.0); NEUTROPHIL # 7.6 10^3/ul (1.6-7.5); NEUTROPHILS % 67.6 % (39.0-77.0); PLATELET COUNT 485 10^3/UL (140-415); RED BLOOD COUNT 3.91 10^6/ul (4.20-5.40); WHITE BLOOD COUNT 11.3 10^3/ul (4.8-10.8)
[2017-05-24 05:13] LABS: POSITIVE DIFF @See below
[2017-05-24 05:20] LABS: MAGNESIUM 1.9 mg/dl (1.7-2.5); PHOSPHORUS 3.3 mg/dl (2.5-4.9)
[2017-05-24 05:22] LABS: CALCIUM 8.2 mg/dl (8.4-10.2); CREATININE 0.59 mg/dl (0.44-1.00); POTASSIUM 4.2 mmol/L (3.5-5.1)
[2017-05-24] MEDS: metroNIDAZOLE 500 MG/NS (PMX) 100 ML IVPB SCH (05:39)
[2017-05-24 08:26] VITALS: BP 129/60; RESP 18
[2017-05-24] MEDS: FAMOTIDINE 20 MG TAB PO SCH ×2 (09:35→20:47)
--- NOTE | 2017-05-24 11:20 | PN ---
Date/Time of Note Date/Time of Note DATE: 05/24/17 TIME: 11:15 Assessment/Plan Lines/Catheters IV Catheter Type (from [facility]): Peripheral IV Aguilar in Place (from [facility]): No Assessment/Plan Chief Complaint/Hosp Course 1. Abdominal pain, significant leukocytosis, CT with free air and contrast leak at anastomosis with resultant peritonitis and sepsis; s/p ascending colon adenocarcinoma status post laparoscopic right colectomy 04/30/17; Anastomotic leak mid staple line with open jaymie for about a 3 mm enterotomy with peritonitis and sepsis; Improved. Bowel function. Repeat CT noted. Leukocytosis again -po abx per ID (input appreciated) -IS -justin drain care -ambulate/PT -diet -pulmonary toilette 2. 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 -onc follow up as outpt 3. Esophagitis -Diet and lifestyle optimization -Antacids 4. Hemorrhoids -Dietary and lifestyle optimization 5. Gastritis -Diet and lifestyle optimization -Antacids 6. Anemia secondary to above -As above 7. Hx GI bleed, multifactorial, secondary to above. Stable -Monitor -As above 8. Leukocytosis: min bump up; afebrile -further workup if persistent Thank you. Patient seen and examined in collaboration with Dr. Jw Sheppard. Problems: Subjective 24 Hr Interval Summary Feels well. Minimal drainage from JUSTIN's. Slight bump up in wbc but afebrile. + bowel function per ostomy. No chills, sob, congested cough, cp, palpitations, soto , dizziness, n/v/d/dysuria. Exam/Review of Systems Vital Signs Vitals Vital Signs Date Time Temp Pulse Resp B/P Pulse Ox O2 Delivery O2 Flow Rate FiO2 05/24/17 08:26 97.8 75 18 129/60 96 05/22/17 03:01 2.0 05/21/17 06:02 Nasal Cannula Intake and Output 05/23/17 05/23/17 05/24/17 14:59 22:59 06:59 Intake Total 1310 ml 520 ml Output Total 1010 ml 515 ml Balance 300 ml 5 ml Exam Free Text/Dictation Constitutional: alert, oriented Psych: nl mood/affect and anxious Head: atraumatic, normocephalic Eyes: EOMI, PERRL, nl conjunctiva, No icteric ENMT: mucosa pink and moist, nl external ears & nose, nl lips & teeth Neck: non-tender, supple, No jvd Respiratory: normal air movement, No congested cough, No labored breathing Cardiovascular: no regular rate and rhythm, No edema Gastrointestinal: Min tender epigastric. No erythema/drainage/bruising. Ileostomy pink and moist with gas/stool; midline incision site dry; JPs noted. Musculoskeletal: nl extremities to inspection, No joint tenderness, Min range of motion. Extremities: normal pulses, No calf tenderness, No cyanosis Neurological: nl mental status, nl speech, nl strength Skin: nl turgor, No diaphoresis, No rash or lesions Lymph: nl lymph nodes Results Result Diagram: 05/24/17 0448 05/24/17 0448 GERALDO SILVA NP May 24, 2017 11:20
--- NOTE | 2017-05-24 12:38 | CONS ---
Date/Time of Note Date/Time of Note DATE: 05/24/17 TIME: 12:36 Assessment/Plan Assessment/Plan Chief Complaint/Hosp Course SUBJECTIVE: No events overnight. Alert, feels good, no fevers, no n/v/d INDWELLINGS: Two JPs and colostomy. MICROBIOLOGY: Peritoneal fluid culture on 05/08/2017 grew Klebsiella pneumoniae , E. coli and Enterococcus species. Urine culture grew enterococcus species. Repeat urine and blood cultures have been negative. ANTIMICROBIALS: The patient is on PO Flagyl DIAGNOSTICS: CT of the abdomen and pelvis 2 days ago revealed status post hemicolectomy with ileocolonic anastomosis. No obstruction, no evidence of extravasated contrast, status post placement of surgical drain inferior to the liver terminating in the right paracolic gutter that is inflamed fat with pockets of fluid in the right paracolic gutter in keeping with infection, negative for abscess. Small subcapsular abscess overlying the right hepatic lobe are new since prior exam. No fluid collection in the pelvis. New nodule left adrenal gland, may represent small adrenal abscess. Gallbladder wall thickening, nonspecific, likely related to adjacent subcapsular liver abscesses. PHYSICAL EXAMINATION: GENERAL: Well-nourished, well-developed, elderly woman who is alert, in no distress. HEENT: Head atraumatic, normocephalic. Sclerae anicteric. Buccal mucosa pink. NECK: Supple. CHEST: Rise symmetrical. Breath sounds diminished to bases. HEART: S1, S2. ABDOMEN: Soft. Bowel sounds present. EXTREMITIES: Without cyanosis. ASSESSMENT: 1. Systemic inflammatory response syndrome 2. History of colon adenocarcinoma, status post laparoscopic right colectomy on 04/30/2017 4. Postoperative anastomotic leak status post laparoscopic washouts and repair of anastomotic enterotomy with an ileostomy on 05/08/2017 5. Evidence of small hepatic abscesses as per CT of the abdomen and pelvis with evidence of inflamed fat with pockets of fluid in the right pericolic gutter. 6. Left adrenal gland nodule, questionable small adrenal abscess. 7. Anemia. 8. History of GI bleeding. PLAN: The patient remains stable. Abx tapered down to oral Flagyl, continue present care, f/u surgical rec-s discussed with RN/pt Problems: Consultation Date/Type/Reason Admit Date/Time May 07, 2017 at 20:57 Initial Consult Date 05/07/17 Type of Consultation: ID Referring Provider: ANA GALLEGO MD Exam/Review of Systems Vital Signs Vitals Vital Signs Date Time Temp Pulse Resp B/P Pulse Ox O2 Delivery O2 Flow Rate FiO2 05/24/17 08:26 97.8 75 18 129/60 96 05/22/17 03:01 2.0 05/21/17 06:02 Nasal Cannula Intake and Output 05/23/17 05/23/17 05/24/17 15:00 23:00 07:00 Intake Total 1310 ml 520 ml Output Total 1010 ml 515 ml Balance 300 ml 5 ml Results Result Diagram: 05/24/17 0448 05/24/17 0448 Results 24 hrs Laboratory Tests Test 05/24/17 04:48 White Blood Count 11.3 H Red Blood Count 3.91 L Hemoglobin 10.0 L Hematocrit 32.6 L Mean Corpuscular Volume 83.4 Mean Corpuscular Hemoglobin 25.6 L Mean Corpuscular Hemoglobin Concent 30.7 L Red Cell Distribution Width Platelet Count 485 H Mean Platelet Volume 8.2 Neutrophils % 67.6 Lymphocytes % 13.6 L Monocytes % 13.8 H Eosinophils % 1.6 Basophils % 0.9 Nucleated Red Blood Cells % 0.0 Neutrophils # 7.6 H Lymphocytes # 1.5 Monocytes # 1.6 H Eosinophils # 0.2 Basophils # 0.1 Nucleated Red Blood Cells # 0.0 Sodium Level 138 Potassium Level 4.2 Chloride Level 106 Carbon Dioxide Level 27 Anion Gap 9 Blood Urea Nitrogen 7 Creatinine 0.59 Glucose Level 101 Calcium Level 8.2 L Phosphorus Level 3.3 Magnesium Level 1.9 Medications Medications Current Medications Morphine Sulfate (morphine) 2 mg Q4H PRN IV PAIN LEVEL 7-10 Last administered on 05/18/17 08:23; Admin Dose 2 MG; Start 05/07/17 at 22:30 Hydromorphone HCl 0.5 mg 0.5 mg Q3H PRN IV PAIN Last administered on 20:00; Admin Dose 0.5 MG; Start 05/08/17 at 06:15 Ondansetron HCl/ Dextrose (Zofran Inj/D5W) 54 ml @ 108 mls/hr Q6H PRN IV NAUSEA AND/OR VOMITING Last administered on 05/20/17 09:31; Admin Dose 108 MLS /HR; Start 11/11/17 at 06:30 Famotidine (Pepcid) 20 mg BID PO Last administered on 05/24/17 09:35; Admin Dose 20 MG; Start 05/10/17 at 21:00 Acetaminophen/ Hydrocodone Bitart ([place] (10/325)) 1 tab Q6H PRN PO PAIN Last administered on 05/18/17 06:30; Admin Dose 1 TAB; Start 05/13/17 at 00:00 Metronidazole (Flagyl) 500 mg Q8 PO ; Start 05/24/17 at 14:00 STEPHENIE WAGNER NP May 24, 2017 12:38
[2017-05-24] MEDS: metroNIDAZOLE 500 MG TAB PO SCH ×2 (13:34→20:47)
--- NOTE | 2017-05-24 15:14 | PN ---
Date/Time of Note Date/Time of Note DATE: 05/24/17 TIME: 15:13 Assessment/Plan VTE Prophylaxis VTE Prophylaxis Intervention: SCD's Lines/Catheters IV Catheter Type (from Nrs): Saline Lock Urinary Cath still in place: No Assessment/Plan Assessment/Plan 81-year-old female with recent R colectomy 11.3 for colon ca presented with abd pain, found to have sepsis from anastomotic leak warranting surgical repair which pt underwent 05.08. Imaging 05.16 with hepatic subcapsular abscess #intraabd infection from anastomotic leak, also now with hepatic subcapsular abscess cont PO metronidazole, length of therapy unclear gen surg dw abscess with IR, too small for IR drainage, plan is conservative management #iron def Anemia:: likely 2/2 colon ca start PO iron inactive problems: pulmonary fibrosis: home meds h/o esophagitis and gastritis: cont home h2b colon ca: outpatient onc f/u CM on [id number] final recommendations from them regarding insurance approval and placement options dispo pending CM figuring out if pt can go to a SNF Subjective 24 Hr Interval Summary Free Text/Dictation pt reports abd pain is improving Exam/Review of Systems Vital Signs Vitals Vital Signs Date Time Temp Pulse Resp B/P Pulse Ox O2 Delivery O2 Flow Rate FiO2 05/24/17 08:26 97.8 75 18 129/60 96 05/22/17 03:01 2.0 05/21/17 06:02 Nasal Cannula Intake and Output 05/23/17 05/23/17 05/24/17 14:59 22:59 06:59 Intake Total 1310 ml 520 ml Output Total 1010 ml 515 ml Balance 300 ml 5 ml Exam nad no mrg ostomy with stool abd drains in place x 2 no rashes no edema Results Result Diagram: 05/24/17 0448 05/24/17 0448 Results 24 hrs Laboratory Tests Test 05/24/17 04:48 White Blood Count 11.3 H Red Blood Count 3.91 L Hemoglobin 10.0 L Hematocrit 32.6 L Mean Corpuscular Volume 83.4 Mean Corpuscular Hemoglobin 25.6 L Mean Corpuscular Hemoglobin Concent 30.7 L Red Cell Distribution Width Platelet Count 485 H Mean Platelet Volume 8.2 Neutrophils % 67.6 Lymphocytes % 13.6 L Monocytes % 13.8 H Eosinophils % 1.6 Basophils % 0.9 Nucleated Red Blood Cells % 0.0 Neutrophils # 7.6 H Lymphocytes # 1.5 Monocytes # 1.6 H Eosinophils # 0.2 Basophils # 0.1 Nucleated Red Blood Cells # 0.0 Sodium Level 138 Potassium Level 4.2 Chloride Level 106 Carbon Dioxide Level 27 Anion Gap 9 Blood Urea Nitrogen 7 Creatinine 0.59 Glucose Level 101 Calcium Level 8.2 L Phosphorus Level 3.3 Magnesium Level 1.9 Medications Medications Current Medications Morphine Sulfate (morphine) 2 mg Q4H PRN IV PAIN LEVEL 7-10 Last administered on 05/18/17 08:23; Admin Dose 2 MG; Start 05/07/17 at 22:30 Hydromorphone HCl 0.5 mg 0.5 mg Q3H PRN IV PAIN Last administered on 20:00; Admin Dose 0.5 MG; Start 05/08/17 at 06:15 Ondansetron HCl/ Dextrose (Zofran Inj/D5W) 54 ml @ 108 mls/hr Q6H PRN IV NAUSEA AND/OR VOMITING Last administered on 05/20/17 09:31; Admin Dose 108 MLS /HR; Start 05/08/17 at 06:30 Famotidine (Pepcid) 20 mg BID PO Last administered on 05/24/17 09:35; Admin Dose 20 MG; Start 05/10/17 at 21:00 Acetaminophen/ Hydrocodone Bitart ([place] (10/325)) 1 tab Q6H PRN PO PAIN Last administered on 05/18/17 06:30; Admin Dose 1 TAB; Start 05/13/17 at 00:00 Metronidazole (Flagyl) 500 mg Q8 PO Last administered on 05/24/17 13:34; Admin Dose 500 MG; Start 05/24/17 at 14:00 BRO CHAU MD May 24, 2017 15:14
[2017-05-24 16:02] VITALS: BP 136/64; PULSE 85; RESP 18
[2017-05-24 20:32] VITALS: BP 135/63; RESP 19
[2017-05-24] MEDS: FERROUS SULFATE (EC) 325 MG TAB PO SCH (20:46)
[2017-05-25 03:06] VITALS: BP 128/57; RESP 19
[2017-05-25] MEDS: metroNIDAZOLE 500 MG TAB PO SCH ×3 (05:21→21:09)
[2017-05-25 05:22] LABS: ABNORMAL IP MESSAGE 1; BASOPHIL # 0.1 10^3/ul (0.0-0.1); BASOPHILS % 0.8 % (0.0-2.0); EOSINOPHILS # 0.2 10^3/ul (0.0-0.5); EOSINOPHILS % 1.9 % (0.0-7.0); HEMATOCRIT 31.9 % (37.0-47.0); LYMPHOCYTES # 1.3 10^3/ul (0.8-2.9); LYMPHOCYTES % 12.3 % (15.0-51.0); MEAN CORPUSCULAR HEMOGLOBIN 26.1 pg (29.0-33.0); MEAN CORPUSCULAR HGB CONC 31.3 g/dl (32.0-37.0); MEAN CORPUSCULAR VOLUME 83.3 fl (82.0-101.0); MEAN PLATELET VOLUME 8.7 fl (7.4-10.4); MONOCYTE # 1.3 10^3/ul (0.3-0.9); MONOCYTES % 11.9 % (0.0-11.0); NEUTROPHIL # 7.6 10^3/ul (1.6-7.5); NEUTROPHILS % 71.4 % (39.0-77.0); PLATELET COUNT 476 10^3/UL (140-415); RED BLOOD COUNT 3.83 10^6/ul (4.20-5.40); RED CELL DISTRIBUTION WIDTH 27.9 % (11.5-14.5); WHITE BLOOD COUNT 10.6 10^3/ul (4.8-10.8)
[2017-05-25 05:29] LABS: POSITIVE DIFF @See below
[2017-05-25 08:30] VITALS: BP 104/67; RESP 19
[2017-05-25] MEDS: FERROUS SULFATE (EC) 325 MG TAB PO SCH ×3 (09:00→21:09)
--- NOTE | 2017-05-25 09:19 | PN ---
Date/Time of Note Date/Time of Note DATE: 05/25/17 TIME: 09:12 Assessment/Plan Lines/Catheters IV Catheter Type (from [facility]): Saline Lock Aguilar in Place (from [facility]): No Assessment/Plan Chief Complaint/Hosp Course 1. Abdominal pain, significant leukocytosis, CT with free air and contrast leak at anastomosis with resultant peritonitis and sepsis; s/p ascending colon adenocarcinoma status post laparoscopic right colectomy 04/30/17; Anastomotic leak mid staple line with open jaymie for about a 3 mm enterotomy with peritonitis and sepsis; Improved. Bowel function. Repeat CT noted. Leukocytosis normalized -po abx per ID (input appreciated) -IS -justin drain care -ambulate/PT -diet -pulmonary toilette -may be discharged per medical team to snf vs. home w for drain care. To follow in office in 1 week. Please have patient record output daily. 2. 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 -onc follow up as outpt 3. Esophagitis: -Diet and lifestyle optimization -Antacids 4. Hemorrhoids -Dietary and lifestyle optimization 5. Gastritis -Diet and lifestyle optimization -h2 antagonist 6. Anemia secondary to above -As above 7. Hx GI bleed, multifactorial, secondary to above. Stable -Monitor -As above 8. Leukocytosis: normalized -further workup if persistent Thank you. Patient seen and examined in collaboration with Dr. Jw Sheppard. Problems: Subjective 24 Hr Interval Summary Feels well. No c/o pain. Drains with min output. No fevers, chills, sob, congested cough, cp, palpitations, soto, dizziness, n/v/d/dysuria. Ostomy with + bowel function Exam/Review of Systems Vital Signs Vitals Vital Signs Date Time Temp Pulse Resp B/P Pulse Ox O2 Delivery O2 Flow Rate FiO2 05/25/17 08:30 97.9 92 19 104/67 94 05/24/17 16:02 Room Air 05/22/17 03:01 2.0 Intake and Output 05/24/17 05/24/17 05/25/17 14:59 22:59 06:59 Intake Total 720 ml 360 ml Output Total 810 ml 510 ml Balance -90 ml -150 ml Exam Free Text/Dictation Constitutional: alert, oriented Psych: nl mood/affect Head: atraumatic, normocephalic Eyes: EOMI, PERRL, nl conjunctiva, No icteric ENMT: mucosa pink and moist, nl external ears & nose, nl lips & teeth Neck: non-tender, supple, No jvd Respiratory: normal air movement, No congested cough, No labored breathing Cardiovascular: no regular rate and rhythm, No edema Gastrointestinal: Min tender epigastric. No erythema/drainage/bruising. Ileostomy pink and moist with gas/stool; midline incision site dry; JPs noted ( upper justin with min creamy drainage, lower JUSTIN with min serous drainage) Musculoskeletal: nl extremities to inspection, No joint tenderness, Min range of motion. Extremities: normal pulses, No calf tenderness, No cyanosis Neurological: nl mental status, nl speech, nl strength Skin: nl turgor, No diaphoresis, No rash or lesions Lymph: nl lymph nodes Results Result Diagram: 05/25/17 0431 05/24/17 0448 GERALDO SILVA NP May 25, 2017 09:19
[2017-05-25] MEDS: FAMOTIDINE 20 MG TAB PO SCH ×2 (09:45→21:08)
[2017-05-25 14:00] VITALS: BP 106/59; PULSE 85; RESP 16
--- NOTE | 2017-05-25 14:20 | CONS ---
Date/Time of Note Date/Time of Note DATE: 05/25/17 TIME: 14:18 Assessment/Plan Assessment/Plan Chief Complaint/Hosp Course SUBJECTIVE: Alert, feels good, no fevers, no n/v/d INDWELLINGS: JPs and colostomy. MICROBIOLOGY: Peritoneal fluid culture on 05/08/2017 grew Klebsiella pneumoniae , E. coli and Enterococcus species. Urine culture grew enterococcus species. Repeat urine and blood cultures have been negative. ANTIMICROBIALS: The patient is on PO Flagyl DIAGNOSTICS: 05/16 CT of the abdomen and pelvis revealed status post hemicolectomy with ileocolonic anastomosis. No obstruction, no evidence of extravasated contrast, status post placement of surgical drain inferior to the liver terminating in the right paracolic gutter that is inflamed fat with pockets of fluid in the right paracolic gutter in keeping with infection, negative for abscess. Small subcapsular abscess overlying the right hepatic lobe are new since prior exam. No fluid collection in the pelvis. New nodule left adrenal gland, may represent small adrenal abscess. Gallbladder wall thickening, nonspecific, likely related to adjacent subcapsular liver abscesses. PHYSICAL EXAMINATION: GENERAL: Well-nourished, well-developed, elderly woman who is alert, in no distress. HEENT: Head atraumatic, normocephalic. Sclerae anicteric. Buccal mucosa pink. NECK: Supple. CHEST: Rise symmetrical. Breath sounds diminished to bases. HEART: S1, S2. ABDOMEN: Soft. Bowel sounds present. EXTREMITIES: Without cyanosis. ASSESSMENT: 1. Systemic inflammatory response syndrome 2. History of colon adenocarcinoma, status post laparoscopic right colectomy on 04/30/2017 4. Postoperative anastomotic leak status post laparoscopic washouts and repair of anastomotic enterotomy with an ileostomy on 05/08/2017 5. Evidence of small hepatic abscesses as per CT of the abdomen and pelvis with evidence of inflamed fat with pockets of fluid in the right pericolic gutter==> on Flagyl. 6. Left adrenal gland nodule, questionable small adrenal abscess. 7. Anemia. 8. History of GI bleeding. PLAN: The patient remains stable, continue present care, f/u surgical rec-s discussed with RN/pt Problems: Consultation Date/Type/Reason Admit Date/Time May 07, 2017 at 20:57 Initial Consult Date 05/07/17 Type of Consultation: ID Referring Provider: ANA GALLEGO MD Exam/Review of Systems Vital Signs Vitals Vital Signs Date Time Temp Pulse Resp B/P Pulse Ox O2 Delivery O2 Flow Rate FiO2 05/25/17 08:30 97.9 92 19 104/67 94 05/24/17 16:02 Room Air 05/22/17 03:01 2.0 Intake and Output 05/24/17 05/24/17 05/25/17 15:00 23:00 07:00 Intake Total 720 ml 360 ml Output Total 810 ml 510 ml Balance -90 ml -150 ml Results Result Diagram: 05/25/17 0431 05/24/17 0448 Results 24 hrs Laboratory Tests Test 05/25/17 04:31 White Blood Count 10.6 Red Blood Count 3.83 L Hemoglobin 10.0 L Hematocrit 31.9 L Mean Corpuscular Volume 83.3 Mean Corpuscular Hemoglobin 26.1 L Mean Corpuscular Hemoglobin Concent 31.3 L Red Cell Distribution Width 27.9 H Platelet Count 476 H Mean Platelet Volume 8.7 Neutrophils % 71.4 Lymphocytes % 12.3 L Monocytes % 11.9 H Eosinophils % 1.9 Basophils % 0.8 Nucleated Red Blood Cells % 0.0 Neutrophils # 7.6 H Lymphocytes # 1.3 Monocytes # 1.3 H Eosinophils # 0.2 Basophils # 0.1 Nucleated Red Blood Cells # 0.0 Medications Medications Current Medications Morphine Sulfate (morphine) 2 mg Q4H PRN IV PAIN LEVEL 7-10 Last administered on 05/18/17 08:23; Admin Dose 2 MG; Start 05/07/17 at 22:30 Hydromorphone HCl 0.5 mg 0.5 mg Q3H PRN IV PAIN Last administered on 20:00; Admin Dose 0.5 MG; Start 05/08/17 at 06:15 Ondansetron HCl/ Dextrose (Zofran Inj/D5W) 54 ml @ 108 mls/hr Q6H PRN IV NAUSEA AND/OR VOMITING Last administered on 05/20/17 09:31; Admin Dose 108 MLS /HR; Start 05/08/17 at 06:30 Famotidine (Pepcid) 20 mg BID PO Last administered on 05/25/17 09:45; Admin Dose 20 MG; Start 05/10/17 at 21:00 Acetaminophen/ Hydrocodone Bitart ([place] ()) 1 tab Q6H PRN PO PAIN Last administered on 05/18/17 06:30; Admin Dose 1 TAB; Start 05/13/17 at 00:00 Metronidazole (Flagyl) 500 mg Q8 PO Last administered on 05/25/17 13:33; Admin Dose 500 MG; Start 05/24/17 at 14:00 Ferrous Sulfate (Ferrous Sulfate (Ec)) 325 mg BID PO Last administered on 05/24 20:46; Admin Dose 325 MG; Start 05/24/17 at 21:00 STEPHENIE WAGNER NP May 25, 2017 14:20
--- NOTE | 2017-05-25 16:04 | PN ---
Date/Time of Note Date/Time of Note DATE: 05/25/17 TIME: 16:00 Assessment/Plan VTE Prophylaxis VTE Prophylaxis Intervention: SCD's Lines/Catheters IV Catheter Type (from Nrsg): Peripheral IV Urinary Cath still in place: No Assessment/Plan Assessment/Plan 81-year-old female with recent R colectomy 11.3 for colon ca presented with abd pain, found to have sepsis from anastomotic leak warranting surgical repair which pt underwent 05.08. Imaging 05.16 with hepatic subcapsular abscess. Discharge precluded by lack of current discharge dispo (HH v SNF) #intraabd infection from anastomotic leak, also now with hepatic subcapsular abscess cont PO metronidazole, length of therapy unclear gen surg dw abscess with IR, too small for IR drainage, plan is conservative management #iron def Anemia:: likely 2/2 colon ca cont PO iron inactive problems: pulmonary fibrosis: home meds h/o esophagitis and gastritis: cont home h2b colon ca: outpatient onc f/u CM working on SNF v HH Subjective 24 Hr Interval Summary Free Text/Dictation nad, no pain Exam/Review of Systems Vital Signs Vitals Vital Signs Date Time Temp Pulse Resp B/P Pulse Ox O2 Delivery O2 Flow Rate FiO2 05/25/17 08:30 97.9 92 19 104/67 94 05/24/17 16:02 Room Air 05/22/17 03:01 2.0 Intake and Output 05/24/17 05/24/17 05/25/17 15:00 23:00 07:00 Intake Total 720 ml 360 ml Output Total 810 ml 510 ml Balance -90 ml -150 ml Exam nad no mrg lungs clear abd soft no rashes Results Result Diagram: 05/25/17 0431 05/24/17 0448 Results 24 hrs Laboratory Tests Test 05/25/17 04:31 White Blood Count 10.6 Red Blood Count 3.83 L Hemoglobin 10.0 L Hematocrit 31.9 L Mean Corpuscular Volume 83.3 Mean Corpuscular Hemoglobin 26.1 L Mean Corpuscular Hemoglobin Concent 31.3 L Red Cell Distribution Width 27.9 H Platelet Count 476 H Mean Platelet Volume 8.7 Neutrophils % 71.4 Lymphocytes % 12.3 L Monocytes % 11.9 H Eosinophils % 1.9 Basophils % 0.8 Nucleated Red Blood Cells % 0.0 Neutrophils # 7.6 H Lymphocytes # 1.3 Monocytes # 1.3 H Eosinophils # 0.2 Basophils # 0.1 Nucleated Red Blood Cells # 0.0 Medications Medications Current Medications Morphine Sulfate (morphine) 2 mg Q4H PRN IV PAIN LEVEL 7-10 Last administered on 05/18/17 08:23; Admin Dose 2 MG; Start 05/07/17 at 22:30 Hydromorphone HCl 0.5 mg 0.5 mg Q3H PRN IV PAIN Last administered on 20:00; Admin Dose 0.5 MG; Start 05/08/17 at 06:15 Ondansetron HCl/ Dextrose (Zofran Inj/D5W) 54 ml @ 108 mls/hr Q6H PRN IV NAUSEA AND/OR VOMITING Last administered on 05/20/17 09:31; Admin Dose 108 MLS /HR; Start 05/08/17 at 06:30 Famotidine (Pepcid) 20 mg BID PO Last administered on 05/25/17 09:45; Admin Dose 20 MG; Start 05/10/17 at 21:00 Acetaminophen/ Hydrocodone Bitart ([place] (10/325)) 1 tab Q6H PRN PO PAIN Last administered on 05/18/17 06:30; Admin Dose 1 TAB; Start 05/13/17 at 00:00 Metronidazole (Flagyl) 500 mg Q8 PO Last administered on 05/25/17 13:33; Admin Dose 500 MG; Start 05/24/17 at 14:00 Ferrous Sulfate (Ferrous Sulfate (Ec)) 325 mg BID PO Last administered on 05/24 20:46; Admin Dose 325 MG; Start 05/24/17 at 21:00 BRO CHAU MD May 25, 2017 16:04
[2017-05-25 19:50] VITALS: BP 118/63; RESP 20
[2017-05-26 02:51] VITALS: BP 115/63; RESP 21
[2017-05-26 05:39] LABS: ABNORMAL IP MESSAGE 1; BASOPHIL # 0.1 10^3/ul (0.0-0.1); BASOPHILS % 0.9 % (0.0-2.0); EOSINOPHILS # 0.2 10^3/ul (0.0-0.5); EOSINOPHILS % 1.8 % (0.0-7.0); HEMATOCRIT 32.9 % (37.0-47.0); HEMOGLOBIN 10.4 g/dl (12.0-16.0); LYMPHOCYTES # 1.3 10^3/ul (0.8-2.9); MEAN CORPUSCULAR HEMOGLOBIN 26.5 pg (29.0-33.0); MEAN CORPUSCULAR HGB CONC 31.6 g/dl (32.0-37.0); MEAN CORPUSCULAR VOLUME 83.9 fl (82.0-101.0); MEAN PLATELET VOLUME 8.5 fl (7.4-10.4); MONOCYTE # 1.2 10^3/ul (0.3-0.9); NEUTROPHIL # 7.6 10^3/ul (1.6-7.5); NEUTROPHILS % 72.7 % (39.0-77.0); PLATELET COUNT 413 10^3/UL (140-415); RED BLOOD COUNT 3.92 10^6/ul (4.20-5.40); WHITE BLOOD COUNT 10.5 10^3/ul (4.8-10.8)
[2017-05-26 05:49] LABS: POSITIVE DIFF @See below
[2017-05-26] MEDS: metroNIDAZOLE 500 MG TAB PO SCH ×3 (06:00→22:01)
[2017-05-26 06:09] LABS: CALCIUM 8.5 mg/dl (8.4-10.2); CREATININE 0.67 mg/dl (0.44-1.00); MAGNESIUM 1.9 mg/dl (1.7-2.5)
[2017-05-26 08:00] VITALS: BP 123/71; RESP 19
[2017-05-26] MEDS: FERROUS SULFATE (EC) 325 MG TAB PO SCH ×2 (08:49→20:36)
[2017-05-26] MEDS: FAMOTIDINE 20 MG TAB PO SCH ×2 (08:49→20:36)
--- NOTE | 2017-05-26 11:17 | PDOCDIS ---
Discharge Instructions CONDITION Patient Condition: Stable HOME CARE INSTRUCTIONS: Diet Instructions: RegularSpecial Diet: SOFT ACTIVITY: Activity Restrictions: Slowly Increase Activity Rest between Activity Avoid heavy lifting Bathing Restrictions: Shower FOLLOW UP/APPOINTMENTS Follow-up Plan If you have any issues/problems with your ostomy or your drains, call Dr Sheppard 's office immediately Si tiene algn problema / problema con siddiqui ostoma o drenajes, llame a la oficina del Dr. Sheppard inmediatamente Follow up with your surgeon, Dr Sheppard within 1 week Moni un seguimiento con siddiqui cirujano, el Dr. Sheppard dentro de 1 semana Address [address] [place] [address] Follow up with your oncologist, Dr Benton, within 2 weeks Address [address] [place] [address] BRO CHAU MD May 26, 2017 11:17
[2017-05-26] MEDS ORDERED: METR500T PO (11:18)
[2017-05-26] MEDS ORDERED: FAMO20TA18 PO (11:18)
[2017-05-26] MEDS ORDERED: FER325 PO (11:18)
--- NOTE | 2017-05-26 11:21 | DS ---
Date/Time of Note Date/Time of Note DATE: 05/26/17 TIME: 11:19 Discharge Summary Admission/Discharge Info Admit Date/Time May 07, 2017 at 20:57 Discharge Date/Time Discharge Diagnosis sepsis from anastomotic leak warranting surgical repair, subcapsular hepatic abscess Consults general surgery, ID, pulm/ICU Procedures 11.10 CT AP IMPRESSION: 1. There is free air in the upper abdomen, greater than expected for 7-day post laparoscopic surgical air. 2. Scattered air in the mesentery adjacent to region of right hemicolectomy surgery, concerning for an anastomotic leak. 3. There is no evident free fluid in the region of concern for anastomotic leak , although there is mild free fluid in the pelvis. 4. Pulmonary fibrosis at the lung bases with in-stent honeycombing seen at the bilateral posterior costophrenic angles. 5. Gallbladder wall thickening versus pericholecystic fluid. 8. Nonspecific mild small bowel ileus. 11.11 CT AP IMPRESSION: Confirmed anastomotic leak at the right hemicolectomy site. Extravasation of contrast is seen. Free intraperitoneal air and stranding again seen.. 11.11 Operation(s) Performed: 1. Laparoscopic washout and repair of an anastomotic enterotomy 2. Loop ileostomy with the lower opening as the proximal ileum with primary drainage and upper opening as the distal ileum going to the anastomosis and colon 3. Laparoscopic implantation of xenograft biologic over the anastomosis for improved healing 4. Local anesthetic injection WASHOUT FLUID CULTURE Microbiology GRAM STAIN Final POLYMORPH. LEUKOCYTE 3+ GRAM POS COCCI IN PAIRS 2+ GRAM POSITIVE RODS 1+ GRAM NEGATIVE RODS 1+ BODY FLUID CULTURE Final Organism 1 K.PNEUMONIAE SSP PNEUMONIAE QUANTITY 3+ Organism 2 ESCHERICHIA COLI QUANTITY 2+ Organism 3 ENTEROCOCCUS SPECIES QUANTITY 1+ K PNE SPP E COLI ENT SPS M.I.C. RX M.I.C. RX M.I.C. RX --------- --- --------- --- --------- --- AMPICILLIN >=32 R <=2 S CEFAZOLIN R R CEFOTAXIME S S CIPROFLOXACIN <=0.25 S <=0.25 S GENTAMICIN <=1 S <=1 S LEVOFLOXACIN <=0.12 S <=0.12 S PENICILLIN-G 1 S VANCOMYCIN 2 S TOBRAMYCIN <=1 S <=1 S TRIMETHOPRIM/SULFAMETHOXAZOLE >=320 R >=320 R 11.[address] AP Peritoneal cavity: In the interval since the prior exam, 2 surgical drains have been placed. 1. There is a surgical drain inserted via the left upper quadrant that courses inferior to the left and right lobes of the liver with the tip in the right paracolic gutter. There is inflamed fat in the extraperitoneal compartment of the right paracolic gutter with pockets of fluid in the region of the catheter and a single bubble of gas. Negative for rim-enhancing abscess. 2. A second surgical drain has been placed in the left lower quadrant and the tip is in the right pelvis. No abnormal collections are identified along the course of this drain. There are small subcapsular rim-enhancing fluid collections overlying the right hepatic lobe in keeping with subcapsular abscesses. Dominant collections are as follows: Posterior right lobe (3/48 and 601/69): 1.2 x 2.9 x 3.3 cm Superior right lobe subphrenic (3/23 and 601/44): 1.5 x 4.6 x 1.9 cm Previously identified free intraperitoneal air has resolved. Abdominal wall: Body wall edema. Right lower quadrant to loop ileostomy. Injection granulomas right buttocks. IMPRESSION: 1. Status post right hemicolectomy with an ileocolic anastomosis. In the interval since prior exam, there has been a right lower quadrant loop ileostomy. Bowel loops are decompressed without obstruction. Negative for evidence of extravasated contrast at the ileocolic anastomosis on today's scan. 2. Status post placement of a surgical drain inferior to the liver terminating in the right paracolic gutter. There is inflamed fat with pockets of fluid in the right paracolic gutter in keeping with infection. Negative for rim- enhancing abscess. 3. Small subcapsular abscesses overlying the right hepatic lobe are new since prior exam. Dominant subcapsular liver abscesses have been described above. 4. Status post placement of a surgical drain in the pelvis. No fluid collections are identified along the course of this drain. 5. New nodule left adrenal gland may represent a small adrenal abscess in this clinical setting. Recommend attention on follow-up imaging. 6. Gallbladder wall thickening is nonspecific and is likely related to adjacent subcapsular liver abscesses. Gallbladder could better be evaluated with right upper quadrant ultrasound or HIDA scan if the clinical situation warrants. 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 On presentation to the ER, she was febrile with a temperature of 101. Labs shows a WBC of 20,000. CT abdomen pelvis showed free air in the right abdomen, scattered air in the mesentery adjacent to region of right hemicolectomy surgery, concerning for an anastomotic leak, pulmonary fibrosis at the lung bases with in-stent honeycombing seen at the bilateral posterior costophrenic angles and Gallbladder wall thickening versus pericholecystic fluid. Currently patient is admitted to ICU. An OG tube is been placed since placement of an NG tube was unsuccessful and also caused bleeding. So far that has been about 900 cc of gastric contents aspirated through the OG tube. The OG tube is also making her uncomfortable. Dr. Sheppard from general surgery is already on board. Hospital Course 81-year-old female with recent R colectomy 11.3 for colon ca presented with abd pain, found to have sepsis from anastomotic leak warranting surgical repair which pt underwent 11. ( laparoscopic washouts and repair of anastomotic enterotomy with an ileostomy). Pt initially in the ICU, was transferred to the floor 11.13. Post op course notable for leukocytosis which did not seem to be resolving, imaging 11.19 with hepatic subcapsular abscess. General surgery discussed abscess findings with IR, per my discussion with the general surgeon, it was determined by IR that the abscess would not be amenable to drainage. ID consulted and advised prolonged course of PO antibiotics and follow up imaging in the outpatient setting. Of note, patient with iron deficiency anemia, most likely 2/2 her colon cancer. She was started on PO iron and will be followed by her manager finance/oncologist. POST DISCHARGE FOLLOW UPS REPEAT ABDOMEN/PELVIS IMAGING TO F/U ABSCESSES AND ADRENAL ABSCESS V NODULE. This was dw pt using the Serbian language line prior to discharge. I also personally faxed a copy of this discharge summary to her new primary care physician chosen by the home health care case manager, Dr Rodriguez. Home Meds Active Scripts Famotidine* (Famotidine*) 20 Mg Tablet, 20 MG PO BID for 30 Days, #60 TAB Prov:BRO CHAU MD 05/26/17 Ferrous Sulfate* (Ferrous Sulfate*) 325 Mg Tabec, 325 MG PO BID for 30 Days, # 60 TAB Prov:BRO HCAU MD 05/26/17 Metronidazole* (Flagyl*) 500 Mg Tablet, 500 MG PO Q8 for 7 Days, #21 TAB Prov:BRO CHAU MD 05/26/17 Follow-up Plan If you have any issues/problems with your ostomy or your drains, call Dr Sheppard 's office immediately Si tiene algn problema / problema con siddiqui ostoma o drenajes, llame a la oficina del Dr. Sheppard inmediatamente Follow up with your surgeon, Dr Sheppard within 1 week Moni un seguimiento con siddiqui cirujano, el Dr. Sheppard dentro de 1 semana Address [address] [place] [address] Follow up with your oncologist, Dr Benton, within 2 weeks Address [address] [place] [address] Primary Care Provider Care Physician No Primary Time spent on discharge: > 30 minutes Pending Labs Laboratory Tests Test 05/26/17 04:59 White Blood Count 10.510^3/ul (4.8-10.8) Red Blood Count 3.9210^6/ul (4.20-5.40) Hemoglobin 10.4g/dl (12.0-16.0) Hematocrit 32.9% (37.0-47.0) Mean Corpuscular Volume 83.9fl (82.0-101.0) Mean Corpuscular Hemoglobin 26.5pg (29.0-33.0) Mean Corpuscular Hemoglobin Concent 31.6g/dl (32.0-37.0) Red Cell Distribution Width % (11.5-14.5) Platelet Count 14157^3/UL (140-415) Mean Platelet Volume 8.5fl (7.4-10.4) Neutrophils % 72.7% (39.0-77.0) Lymphocytes % 12.0% (15.0-51.0) Monocytes % 11.0% (0.0-11.0) Eosinophils % 1.8% (0.0-7.0) Basophils % 0.9% (0.0-2.0) Nucleated Red Blood Cells % 0.0/100WBC (0.0-0.0) Neutrophils # 7.610^3/ul (1.6-7.5) Lymphocytes # 1.310^3/ul (0.8-2.9) Monocytes # 1.210^3/ul (0.3-0.9) Eosinophils # 0.210^3/ul (0.0-0.5) Basophils # 0.110^3/ul (0.0-0.1) Nucleated Red Blood Cells # 0.010^3/ul (0.0-0.0) Sodium Level 137mmol/L (135-144) Potassium Level 4.0mmol/L (3.5-5.1) Chloride Level 104mmol/L (97-110) Carbon Dioxide Level 27mmol/L (21-31) Anion Gap 10 (8-16) Blood Urea Nitrogen 8mg/dl (7-20) Creatinine 0.67mg/dl (0.44-1.00) Glucose Level 97mg/dl (70-220) Calcium Level 8.5mg/dl (8.4-10.2) Magnesium Level 1.9mg/dl (1.7-2.5) Copies To: CC: JERICHO DUNHAM MD; MICHELLE SHEPPARD MD; BRANDY BENTON MD, ELLEN MD May 26, 2017 11:21
--- NOTE | 2017-05-26 13:07 | PN ---
Date/Time of Note Date/Time of Note DATE: 05/26/17 TIME: 13:00 Assessment/Plan Lines/Catheters IV Catheter Type (from [facility]): Saline Lock Aguilar in Place (from [facility]): No Assessment/Plan Chief Complaint/Hosp Course 1. Abdominal pain, significant leukocytosis, CT with free air and contrast leak at anastomosis with resultant peritonitis and sepsis; s/p ascending colon adenocarcinoma status post laparoscopic right colectomy 04/30/17; Anastomotic leak mid staple line with open jaymie for about a 3 mm enterotomy with peritonitis and sepsis; Improved. Bowel function. Repeat CT noted. Leukocytosis normalized -po abx per ID (input appreciated) -IS -justin drain care -ambulate/PT -diet -pulmonary toilette -may be discharged per medical team to snf vs. home w for drain care. To follow in office in 1 week. Please have patient record output daily. 2. 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 -onc follow up as outpt 3. Esophagitis: -Diet and lifestyle optimization -Antacids 4. Hemorrhoids -Dietary and lifestyle optimization 5. Gastritis -Diet and lifestyle optimization -h2 antagonist 6. Anemia secondary to above -As above 7. Hx GI bleed, multifactorial, secondary to above. Stable -Monitor -As above 8. Leukocytosis: normalized -further workup if persistent 9. Small subcapsular rim-enhancing fluid collections overlying the right hepatic lobe -cont abx -may re-evaluate after abx course-can be done outpatient Thank you. Patient seen and examined in collaboration with Dr. Jw Sheppard. Problems: Subjective 24 Hr Interval Summary Feels well. Bowel function per ostomy. Drains with min output. No fevers, chills , sob, congested cough, cp, palpitations, soto, dizziness, n/v/d/dysuria. Exam/Review of Systems Vital Signs Vitals Vital Signs Date Time Temp Pulse Resp B/P Pulse Ox O2 Delivery O2 Flow Rate FiO2 05/26/17 08:00 98.2 82 19 123/71 98 05/25/17 14:00 Room Air Intake and Output 05/25/17 05/25/17 05/26/17 14:59 22:59 06:59 Intake Total 720 ml 400 ml Output Total 760 ml 510 ml Balance -40 ml -110 ml Exam Free Text/Dictation Constitutional: alert, oriented Psych: nl mood/affect; pleasant Head: atraumatic, normocephalic Eyes: EOMI, PERRL, nl conjunctiva, No icteric ENMT: mucosa pink and moist, nl external ears & nose, nl lips & teeth Neck: non-tender, supple, No jvd Respiratory: normal air movement, No congested cough, No labored breathing Cardiovascular: no regular rate and rhythm, No edema Gastrointestinal: Min tender epigastric. No erythema/drainage/bruising. Ileostomy pink and moist with gas/stool; midline incision site dry; JPs noted ( upper justin with min creamy drainage, lower JUSTIN with min serous drainage) Musculoskeletal: nl extremities to inspection, No joint tenderness, Min range of motion. Extremities: normal pulses, No calf tenderness, No cyanosis Neurological: nl mental status, nl speech, nl strength Skin: nl turgor, No diaphoresis, No rash or lesions Lymph: nl lymph nodes Results Result Diagram: 05/26/17 0459 05/26/17 0459 GERALDO SILVA NP May 26, 2017 13:07
--- NOTE | 2017-05-26 13:58 | CONS ---
Date/Time of Note Date/Time of Note DATE: 05/26/17 TIME: 13:56 Assessment/Plan Assessment/Plan Chief Complaint/Hosp Course SUBJECTIVE: Alert, looks comfortable, no fevers INDWELLINGS: JPs and colostomy. MICROBIOLOGY: Peritoneal fluid culture on 05/08/2017 grew Klebsiella pneumoniae , E. coli and Enterococcus species. Urine culture grew enterococcus species. Repeat urine and blood cultures have been negative. ANTIMICROBIALS: The patient is on PO Flagyl DIAGNOSTICS: 05/16 CT of the abdomen and pelvis revealed status post hemicolectomy with ileocolonic anastomosis. No obstruction, no evidence of extravasated contrast, status post placement of surgical drain inferior to the liver terminating in the right paracolic gutter that is inflamed fat with pockets of fluid in the right paracolic gutter in keeping with infection, negative for abscess. Small subcapsular abscess overlying the right hepatic lobe are new since prior exam. No fluid collection in the pelvis. New nodule left adrenal gland, may represent small adrenal abscess. Gallbladder wall thickening, nonspecific, likely related to adjacent subcapsular liver abscesses. PHYSICAL EXAMINATION: GENERAL: Well-nourished, well-developed, elderly woman who is alert, in no distress. HEENT: Head atraumatic, normocephalic. Sclerae anicteric. Buccal mucosa pink. NECK: Supple. CHEST: Rise symmetrical. Breath sounds diminished to bases. HEART: S1, S2. ABDOMEN: Soft. Bowel sounds present. EXTREMITIES: Without cyanosis. ASSESSMENT: 1. Systemic inflammatory response syndrome 2. History of colon adenocarcinoma, status post laparoscopic right colectomy on 04/30/2017 4. Postoperative anastomotic leak status post laparoscopic washouts and repair of anastomotic enterotomy with an ileostomy on 05/08/2017 5. Evidence of small hepatic abscesses as per CT of the abdomen and pelvis with evidence of inflamed fat with pockets of fluid in the right pericolic gutter==> on Flagyl. 6. Left adrenal gland nodule, questionable small adrenal abscess. 7. Anemia. 8. History of GI bleeding. PLAN: The patient remains stable, plan to dc her home today on PO Flagyl for 7 more days, per surgical and primary teams pt will need repeat CT abdomen discussed with Dr Sheppard and Dr Cottrell Problems: Consultation Date/Type/Reason Admit Date/Time May 07, 2017 at 20:57 Initial Consult Date 05/07/17 Type of Consultation: ID Referring Provider: ANA GALLEGO MD Exam/Review of Systems Vital Signs Vitals Vital Signs Date Time Temp Pulse Resp B/P Pulse Ox O2 Delivery O2 Flow Rate FiO2 05/26/17 08:00 98.2 82 19 123/71 98 05/25/17 14:00 Room Air Intake and Output 05/25/17 05/25/17 05/26/17 15:00 23:00 07:00 Intake Total 720 ml 400 ml Output Total 760 ml 510 ml Balance -40 ml -110 ml Results Result Diagram: 05/26/17 0459 05/26/17 0459 Results 24 hrs Laboratory Tests Test 05/26/17 04:59 White Blood Count 10.5 Red Blood Count 3.92 L Hemoglobin 10.4 L Hematocrit 32.9 L Mean Corpuscular Volume 83.9 Mean Corpuscular Hemoglobin 26.5 L Mean Corpuscular Hemoglobin Concent 31.6 L Red Cell Distribution Width Platelet Count 413 Mean Platelet Volume 8.5 Neutrophils % 72.7 Lymphocytes % 12.0 L Monocytes % 11.0 Eosinophils % 1.8 Basophils % 0.9 Nucleated Red Blood Cells % 0.0 Neutrophils # 7.6 H Lymphocytes # 1.3 Monocytes # 1.2 H Eosinophils # 0.2 Basophils # 0.1 Nucleated Red Blood Cells # 0.0 Sodium Level 137 Potassium Level 4.0 Chloride Level 104 Carbon Dioxide Level 27 Anion Gap 10 Blood Urea Nitrogen 8 Creatinine 0.67 Glucose Level 97 Calcium Level 8.5 Magnesium Level 1.9 Medications Medications Current Medications Morphine Sulfate (morphine) 2 mg Q4H PRN IV PAIN LEVEL 7-10 Last administered on 05/18/17 08:23; Admin Dose 2 MG; Start 05/07/17 at 22:30 Hydromorphone HCl 0.5 mg 0.5 mg Q3H PRN IV PAIN Last administered on 20:00; Admin Dose 0.5 MG; Start 05/08/17 at 06:15 Ondansetron HCl/ Dextrose (Zofran Inj/D5W) 54 ml @ 108 mls/hr Q6H PRN IV NAUSEA AND/OR VOMITING Last administered on 05/20/17 09:31; Admin Dose 108 MLS /HR; Start 05/08/17 at 06:30 Famotidine (Pepcid) 20 mg BID PO Last administered on 05/26/17 08:49; Admin Dose 20 MG; Start 05/10/17 at 21:00 Acetaminophen/ Hydrocodone Bitart ([place] (10325)) 1 tab Q6H PRN PO PAIN Last administered on 05/18/17 06:30; Admin Dose 1 TAB; Start 05/13/17 at 00:00 Metronidazole (Flagyl) 500 mg Q8 PO Last administered on 05/25/17 21:09; Admin Dose 500 MG; Start 05/24/17 at 14:00 Ferrous Sulfate (Ferrous Sulfate (Ec)) 325 mg BID PO Last administered on 05/26 08:49; Admin Dose 325 MG; Start 05/24/17 at 21:00 STEPHENIE WAGNER NP May 26, 2017 13:58
[2017-05-26 15:34] VITALS: BP 121/69; RESP 18
--- NOTE | 2017-05-26 16:36 | PN ---
Date/Time of Note Date/Time of Note DATE: 05/26/17 TIME: 16:34 Assessment/Plan VTE Prophylaxis VTE Prophylaxis Intervention: SCD's Lines/Catheters IV Catheter Type (from Nrsg): Saline Lock Urinary Cath still in place: No Assessment/Plan Chief Complaint/Hosp Course 81-year-old female with recent R colectomy 11.3 for colon ca presented with abd pain, found to have sepsis from anastomotic leak warranting surgical repair which pt underwent 05.08. Imaging 05.16 with hepatic subcapsular abscess. Discharge precluded by lack of current discharge dispo (HH v SNF) #intraabd infection from anastomotic leak, also now with hepatic subcapsular abscess cont PO metronidazole, length of therapy unclear, possibly 7 days? gen surg dw abscess with IR, too small for IR drainage, plan is conservative management ID to repeat imaging today to f/u on abscesses including adrenal abscess #iron def Anemia:: likely 2/2 colon ca cont PO iron inactive problems: pulmonary fibrosis: home meds h/o esophagitis and gastritis: cont home h2b colon ca: outpatient onc f/u CM working now on SNF Problems: Subjective 24 Hr Interval Summary Free Text/Dictation Pt today requesting SNF, states she's concerned about how weak she is Exam/Review of Systems Vital Signs Vitals Vital Signs Date Time Temp Pulse Resp B/P Pulse Ox O2 Delivery O2 Flow Rate FiO2 05/26/17 15:34 98.0 71 18 121/69 97 05/25/17 14:00 Room Air Intake and Output 05/25/17 05/25/17 05/26/17 15:00 23:00 07:00 Intake Total 720 ml 400 ml Output Total 760 ml 510 ml Balance -40 ml -110 ml Exam tired abd drains remain in place resp nonlabored no rashes no edema Results Result Diagram: 05/26/17 0459 05/26/17 0459 Results 24 hrs Laboratory Tests Test 05/26/17 04:59 White Blood Count 10.5 Red Blood Count 3.92 L Hemoglobin 10.4 L Hematocrit 32.9 L Mean Corpuscular Volume 83.9 Mean Corpuscular Hemoglobin 26.5 L Mean Corpuscular Hemoglobin Concent 31.6 L Red Cell Distribution Width Platelet Count 413 Mean Platelet Volume 8.5 Neutrophils % 72.7 Lymphocytes % 12.0 L Monocytes % 11.0 Eosinophils % 1.8 Basophils % 0.9 Nucleated Red Blood Cells % 0.0 Neutrophils # 7.6 H Lymphocytes # 1.3 Monocytes # 1.2 H Eosinophils # 0.2 Basophils # 0.1 Nucleated Red Blood Cells # 0.0 Sodium Level 137 Potassium Level 4.0 Chloride Level 104 Carbon Dioxide Level 27 Anion Gap 10 Blood Urea Nitrogen 8 Creatinine 0.67 Glucose Level 97 Calcium Level 8.5 Magnesium Level 1.9 Medications Medications Current Medications Morphine Sulfate (morphine) 2 mg Q4H PRN IV PAIN LEVEL 7-10 Last administered on 05/18/17 08:23; Admin Dose 2 MG; Start 05/07/17 at 22:30 Hydromorphone HCl 0.5 mg 0.5 mg Q3H PRN IV PAIN Last administered on 20:00; Admin Dose 0.5 MG; Start 05/08/17 at 06:15 Ondansetron HCl/ Dextrose (Zofran Inj/D5W) 54 ml @ 108 mls/hr Q6H PRN IV NAUSEA AND/OR VOMITING Last administered on 05/20/17 09:31; Admin Dose 108 MLS /HR; Start 05/08/17 at 06:30 Famotidine (Pepcid) 20 mg BID PO Last administered on 05/26/17 08:49; Admin Dose 20 MG; Start 05/10/17 at 21:00 Acetaminophen/ Hydrocodone Bitart ([place] (10/325)) 1 tab Q6H PRN PO PAIN Last administered on 05/18/17 06:30; Admin Dose 1 TAB; Start 05/13/17 at 00:00 Metronidazole (Flagyl) 500 mg Q8 PO Last administered on 05/26/17 14:54; Admin Dose 500 MG; Start 05/24/17 at 14:00 Ferrous Sulfate (Ferrous Sulfate (Ec)) 325 mg BID PO Last administered on 05/26 08:49; Admin Dose 325 MG; Start 05/24/17 at 21:00 BRO CHAU MD May 26, 2017 16:36
[2017-05-26 20:01] VITALS: BP 133/77; RESP 20
[2017-05-26] MEDS ORDERED: BARIUM SULF 2% 450 ML BTL (BERRY SMOOTHIE) PO ONE (23:00)
[2017-05-27 02:47] VITALS: BP 116/66; RESP 18
[2017-05-27] MEDS: metroNIDAZOLE 500 MG TAB PO SCH ×3 (05:41→21:13)
[2017-05-27 08:13] VITALS: BP 125/72; RESP 20
[2017-05-27] MEDS: FAMOTIDINE 20 MG TAB PO SCH ×2 (08:46→21:13)
[2017-05-27] MEDS: FERROUS SULFATE (EC) 325 MG TAB PO SCH ×2 (08:46→21:00)
[2017-05-27] MEDS ORDERED: SOD CHLORIDE 0.9% 100 ML ONE (09:11)
[2017-05-27] MEDS ORDERED: IOHEXOL 300MG/ML 150 ML BTL ONE (09:11)
--- NOTE | 2017-05-27 11:28 | RADRPT ---
PROCEDURE: CT Abdomen and Pelvis with contrast. CLINICAL INDICATION: Abdominal pain TECHNIQUE: CT scan of the abdomen and pelvis with contrast was performed on a multidetector high-r esolution CT scanner. Coronal and sagittal reformatted images were obtained from the axial source im ages. Images were reviewed on a high-resolution PACS workstation. 80 cc of Isovue 300 iodinated cont rast was administered intravenously without reported complication. The total exam CTDI equals 7 mGy and the total exam DLP equals 379 mGy-cm. One or more of the following dose reduction techniques w ere used: Automated exposure control, Adjustment of the mA and/or kV according to patient size, and/ or use of iterative reconstruction technique. DICOM images are available. COMPARISON: Abdominal CT 05/16/2017 FINDINGS: Cardiomegaly. Bibasilar atelectasis. Small, thin posterior right hepatic subcapsular/subdiaphragmatic fluid collections are decreased siz e from prior and now measures up to 7 mm thickness anteroposteriorly, previously 16 mm. The prior de scribed right subdiaphragmatic/subphrenic collection now measures 6 mm in thickness, previously 19 m m thickness when remeasured similarly. The portal vein is patent. No pancreatic ductal dilatation. T he spleen and right adrenals are unremarkable. Left adrenal nodularity on prior study is no longer s een. Unchanged gallbladder is contracted with mild pericholecystic fluid and inflammatory stranding. Right colonic resection changes with right lower quadrant ostomy. No evidence of bowel obstruction. No hydronephrosis. No obstructing renal stone. No significant retroperitoneal lymphadenopathy or evidence of pneumoperitoneum. Uterus is absent. Two left lower quadrant percutaneous drainage catheters are identified. The more superior left abdominal percutaneous drainage catheter tip traverses to the right with tip in the right lower quadrant/right upper pelvis without drainable fluid collection at the tip. The more inferior left lower quadrant percutaneous drainage catheter tip is identified in the right girma pelvis without drainable fluid collection at the tip. Mild chronic L1 compression deformity. IMPRESSION: Right colonic resection changes with right lower quadrant ostomy. No evidence of bowel obstruction. Small, thin posterior right hepatic subcapsular/subdiaphragmatic fluid collections are decreased siz e from prior. No new, drainable intra-abdominal abscess identified. No drainable fluid collection is seen at the 2 left lower abdominal percutaneous drain tips. Left adrenal nodularity on prior study is no longer seen. Unchanged gallbladder is contracted with mild pericholecystic fluid and inflammatory stranding. RPTAT: AA .Chad Milian MD, Date Time Electronically viewed and signed by .Chad Milian MD, on 05/27/2017 11:28 .T/
[2017-05-27 13:00] VITALS: BP 118/67; RESP 20
--- NOTE | 2017-05-27 14:09 | PN ---
Date/Time of Note Date/Time of Note DATE: 05/27/17 TIME: 13:50 Assessment/Plan Lines/Catheters IV Catheter Type (from [facility]): Peripheral IV Aguilar in Place (from [facility]): No Assessment/Plan Chief Complaint/Hosp Course 1. Abdominal pain, significant leukocytosis, CT with free air and contrast leak at anastomosis with resultant peritonitis and sepsis; s/p ascending colon adenocarcinoma status post laparoscopic right colectomy 04/30/17; Anastomotic leak mid staple line with open jaymie for about a 3 mm enterotomy with peritonitis and sepsis; Improved. Bowel function. Repeat CT noted. Leukocytosis normalized -po abx per ID (input appreciated) -IS -justin drain care -ambulate/PT -diet -pulmonary toilette -may be discharged per medical team to snf vs. home w for drain care. To follow in office in 1 week. Please have patient record output daily. 2. 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 -onc follow up as outpt 3. Esophagitis: -Diet and lifestyle optimization -Antacids 4. Hemorrhoids -Dietary and lifestyle optimization 5. Gastritis -Diet and lifestyle optimization -h2 antagonist 6. Anemia secondary to above -As above 7. Hx GI bleed, multifactorial, secondary to above. Stable -Monitor -As above 8. Leukocytosis: normalized -further workup if persistent 9. Small subcapsular rim-enhancing fluid collections overlying the right hepatic lobe -cont abx -may re-evaluate after abx course-can be done outpatient Thank you. Patient seen and examined in collaboration with Dr. Jw Sheppard. Problems: Subjective 24 Hr Interval Summary Repeat CT noted with decreased abscess size. Feeling well. No fevers, chills, sob, congested cough, cp, palpitations, soto, dizziness, n/v/d/dysuria. Exam/Review of Systems Vital Signs Vitals Vital Signs Date Time Temp Pulse Resp B/P Pulse Ox O2 Delivery O2 Flow Rate FiO2 05/27/17 13:00 98.5 89 20 118/67 98 05/25/17 14:00 Room Air Intake and Output 05/26/17 05/26/17 05/27/17 15:00 23:00 07:00 Intake Total 800 ml 380 ml Output Total 300 ml 760 ml Balance 500 ml -380 ml Exam Free Text/Dictation Constitutional: alert, oriented Psych: nl mood/affect; pleasant Head: atraumatic, normocephalic Eyes: EOMI, PERRL, nl conjunctiva, No icteric ENMT: mucosa pink and moist, nl external ears & nose, nl lips & teeth Neck: non-tender, supple, No jvd Respiratory: normal air movement, No congested cough, No labored breathing Cardiovascular: no regular rate and rhythm, No edema Gastrointestinal: non tender epigastric. No erythema/drainage/bruising. Ileostomy pink and moist with gas/stool; midline incision site dry; JPs noted ( upper justin with creamy drainage, lower JUSTIN with serous drainage) Musculoskeletal: nl extremities to inspection, No joint tenderness, Min range of motion. Extremities: normal pulses, No calf tenderness, No cyanosis Neurological: nl mental status, nl speech, nl strength Skin: nl turgor, No diaphoresis, No rash or lesions Lymph: nl lymph nodes Results Result Diagram: 05/26/17 0459 05/26/17 0459 GERALDO SILVA NP May 27, 2017 14:09
--- NOTE | 2017-05-27 14:24 | CONS ---
Date/Time of Note Date/Time of Note DATE: 05/27/17 TIME: 14:22 Assessment/Plan Assessment/Plan Chief Complaint/Hosp Course SUBJECTIVE: Alert, looks comfortable, no fevers INDWELLINGS: JPs and colostomy. MICROBIOLOGY: Peritoneal fluid culture on 05/08/2017 grew Klebsiella pneumoniae , E. coli and Enterococcus species. Urine culture grew enterococcus species. Repeat urine and blood cultures have been negative. ANTIMICROBIALS: The patient is on PO Flagyl DIAGNOSTICS: 05/16 CT of the abdomen and pelvis revealed status post hemicolectomy with ileocolonic anastomosis. No obstruction, no evidence of extravasated contrast, status post placement of surgical drain inferior to the liver terminating in the right paracolic gutter that is inflamed fat with pockets of fluid in the right paracolic gutter in keeping with infection, negative for abscess. Small subcapsular abscess overlying the right hepatic lobe are new since prior exam. No fluid collection in the pelvis. New nodule left adrenal gland, may represent small adrenal abscess. Gallbladder wall thickening, nonspecific, likely related to adjacent subcapsular liver abscesses. PHYSICAL EXAMINATION: GENERAL: Well-nourished, well-developed, elderly woman who is alert, in no distress. HEENT: Head atraumatic, normocephalic. Sclerae anicteric. Buccal mucosa pink. NECK: Supple. CHEST: Rise symmetrical. Breath sounds diminished to bases. HEART: S1, S2. ABDOMEN: Soft. Bowel sounds present. EXTREMITIES: Without cyanosis. ASSESSMENT: 1. Systemic inflammatory response syndrome 2. History of colon adenocarcinoma, status post laparoscopic right colectomy on 04/30/2017 4. Postoperative anastomotic leak status post laparoscopic washouts and repair of anastomotic enterotomy with an ileostomy on 05/08/2017 5. Evidence of small hepatic abscesses as per CT of the abdomen and pelvis with evidence of inflamed fat with pockets of fluid in the right pericolic gutter==> on Flagyl. 6. Left adrenal gland nodule, questionable small adrenal abscess. 7. Anemia. 8. History of GI bleeding. PLAN: Remains stable, CT abdomen results noted, will keep on Flagyl for 10 more days, pt to f/u with surgical team OP Problems: Consultation Date/Type/Reason Admit Date/Time May 07, 2017 at 20:57 Initial Consult Date 05/07/17 Type of Consultation: ID Referring Provider: ZOHRABIAN,ANA MD Exam/Review of Systems Vital Signs Vitals Vital Signs Date Time Temp Pulse Resp B/P Pulse Ox O2 Delivery O2 Flow Rate FiO2 05/27/17 13:00 98.5 89 20 118/67 98 05/25/17 14:00 Room Air Intake and Output 05/26/17 05/26/17 05/27/17 15:00 23:00 07:00 Intake Total 800 ml 380 ml Output Total 300 ml 760 ml Balance 500 ml -380 ml Results Result Diagram: 05/26/17 0459 05/26/17 0459 Medications Medications Current Medications Morphine Sulfate (morphine) 2 mg Q4H PRN IV PAIN LEVEL 7-10 Last administered on 05/18/17 08:23; Admin Dose 2 MG; Start 05/07/17 at 22:30 Hydromorphone HCl 0.5 mg 0.5 mg Q3H PRN IV PAIN Last administered on 20:00; Admin Dose 0.5 MG; Start 05/08/17 at 06:15 Ondansetron HCl/ Dextrose (Zofran Inj/D5W) 54 ml @ 108 mls/hr Q6H PRN IV NAUSEA AND/OR VOMITING Last administered on 05/20/17 09:31; Admin Dose 108 MLS /HR; Start 05/08/17 at 06:30 Famotidine (Pepcid) 20 mg BID PO Last administered on 05/27/17 08:46; Admin Dose 20 MG; Start 05/10/17 at 21:00 Acetaminophen/ Hydrocodone Bitart ([place] (10/325)) 1 tab Q6H PRN PO PAIN Last administered on 05/18/17 06:30; Admin Dose 1 TAB; Start 05/13/17 at 00:00 Metronidazole (Flagyl) 500 mg Q8 PO Last administered on 05/27/17 05:41; Admin Dose 500 MG; Start 05/24/17 at 14:00 Ferrous Sulfate (Ferrous Sulfate (Ec)) 325 mg BID PO Last administered on 05/27 08:46; Admin Dose 325 MG; Start 05/24/17 at 21:00 STEPHENIE WAGNER NP May 27, 2017 14:23
--- NOTE | 2017-05-27 14:44 | PN ---
Date/Time of Note Date/Time of Note DATE: 05/27/17 TIME: 14:42 Assessment/Plan VTE Prophylaxis VTE Prophylaxis Intervention: SCD's Lines/Catheters IV Catheter Type (from Nrs): Peripheral IV Urinary Cath still in place: No Assessment/Plan Chief Complaint/Hosp Course 81-year-old female with recent R colectomy .3 for colon ca presented with abd pain, found to have sepsis from anastomotic leak warranting surgical repair which pt underwent 05.08. Imaging 05.16 with hepatic subcapsular abscess, improved on repeat CT 05.26. Medically stable for transfer to SNF. #intraabd infection from anastomotic leak, also now with hepatic subcapsular abscess. REPEAT IMAGING WITH IMPROVEMENT IN ABSCESS. ADRENAL ABNORMALITY RESOLVED cont PO metronidazole x 10 more days #iron def Anemia:: likely 2/2 colon ca cont PO iron inactive problems: pulmonary fibrosis: home meds h/o esophagitis and gastritis: cont home h2b colon ca: outpatient onc f/u CM working now on SNF Problems: Subjective 24 Hr Interval Summary Free Text/Dictation feels ok Exam/Review of Systems Vital Signs Vitals Vital Signs Date Time Temp Pulse Resp B/P Pulse Ox O2 Delivery O2 Flow Rate FiO2 05/27/17 13:00 98.5 89 20 118/67 98 05/25/17 14:00 Room Air Intake and Output 05/26/17 05/26/17 05/27/17 14:59 22:59 06:59 Intake Total 800 ml 380 ml Output Total 300 ml 760 ml Balance 500 ml -380 ml Exam nad resp nonlabored abd drains in place no rashes no edema CT results reviewed, improved from previous re fluid collections Results Result Diagram: 05/26/17 0459 05/26/17 0459 Medications Medications Current Medications Morphine Sulfate (morphine) 2 mg Q4H PRN IV PAIN LEVEL 7-10 Last administered on 05/18/17 08:23; Admin Dose 2 MG; Start 05/07/17 at 22:30 Hydromorphone HCl 0.5 mg 0.5 mg Q3H PRN IV PAIN Last administered on 20:00; Admin Dose 0.5 MG; Start 05/08/17 at 06:15 Ondansetron HCl/ Dextrose (Zofran Inj/D5W) 54 ml @ 108 mls/hr Q6H PRN IV NAUSEA AND/OR VOMITING Last administered on 05/20/17 09:31; Admin Dose 108 MLS /HR; Start 05/08/17 at 06:30 Famotidine (Pepcid) 20 mg BID PO Last administered on 05/27/17 08:46; Admin Dose 20 MG; Start 05/10/17 at 21:00 Acetaminophen/ Hydrocodone Bitart ([place] (10)) 1 tab Q6H PRN PO PAIN Last administered on 05/18/17 06:30; Admin Dose 1 TAB; Start 05/13/17 at 00:00 Metronidazole (Flagyl) 500 mg Q8 PO Last administered on 05/27/17 14:34; Admin Dose 500 MG; Start 05/24/17 at 14:00 Ferrous Sulfate (Ferrous Sulfate (Ec)) 325 mg BID PO Last administered on 05/27 08:46; Admin Dose 325 MG; Start 05/24/17 at 21:00 BRO CHAU MD May 27, 2017 14:44
[2017-05-27 20:14] VITALS: BP 124/72; RESP 20
[2017-05-28] MEDS: metroNIDAZOLE 500 MG TAB PO SCH ×3 (06:40→21:03)
[2017-05-28 08:30] VITALS: BP 129/60; RESP 20
[2017-05-28] MEDS: FERROUS SULFATE (EC) 325 MG TAB PO SCH ×2 (08:33→20:53)
[2017-05-28] MEDS: FAMOTIDINE 20 MG TAB PO SCH ×2 (08:33→20:51)
--- NOTE | 2017-05-28 12:16 | PN ---
Date/Time of Note Date/Time of Note DATE: 05/28/17 TIME: 12:09 Assessment/Plan Lines/Catheters IV Catheter Type (from [facility]): Saline Lock Aguilar in Place (from [facility]): No Assessment/Plan Chief Complaint/Hosp Course 1. Abdominal pain, significant leukocytosis, CT with free air and contrast leak at anastomosis with resultant peritonitis and sepsis; s/p ascending colon adenocarcinoma status post laparoscopic right colectomy 04/30/17; Anastomotic leak mid staple line with open jaymie for about a 3 mm enterotomy with peritonitis and sepsis; Improved. Bowel function. Repeat CT improved. Leukocytosis resolved. -po abx per ID (input appreciated) -IS -justin drain care -ambulate/PT -diet -pulmonary toilette -may be discharged per medical team to snf vs. home w for drain care. To follow in office in 1 week. Please have patient record output daily. 2. 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 -onc follow up as outpt 3. Esophagitis: -Diet and lifestyle optimization -Antacids 4. Hemorrhoids -Dietary and lifestyle optimization 5. Gastritis -Diet and lifestyle optimization -Antacids 6. Anemia secondary to above -As above 7. Hx GI bleed, multifactorial, secondary to above. Stable -Monitor -As above 8. Leukocytosis: resolved 9. Small subcapsular rim-enhancing fluid collections overlying the right hepatic lobe -outpt fu -abx Thank you, Problems: Subjective 24 Hr Interval Summary Repeat CT noted with decreased abscess size. Feeling well. No fevers, chills, sob, congested cough, cp, palpitations, soto, dizziness, n/v/d/dysuria. Exam/Review of Systems Vital Signs Vitals Vital Signs Date Time Temp Pulse Resp B/P Pulse Ox O2 Delivery O2 Flow Rate FiO2 05/28/17 08:30 98.4 89 20 129/60 97 05/25/17 14:00 Room Air Intake and Output 05/27/17 05/27/17 05/28/17 15:00 23:00 07:00 Intake Total 680 ml 720 ml Output Total 600 ml 310 ml Balance 80 ml 410 ml Exam Free Text/Dictation Constitutional: alert, oriented Psych: nl mood/affect; pleasant Head: atraumatic, normocephalic Eyes: EOMI, PERRL, nl conjunctiva, No icteric ENMT: mucosa pink and moist, nl external ears & nose, nl lips & teeth Neck: non-tender, supple, No jvd Respiratory: normal air movement, No congested cough, No labored breathing Cardiovascular: no regular rate and rhythm, No edema Gastrointestinal: non tender epigastric. No erythema/drainage/bruising. Ileostomy pink and moist with gas/stool; midline incision site dry; JPs noted ( upper justin with creamy drainage, lower JUSTIN with serous drainage) Musculoskeletal: nl extremities to inspection, No joint tenderness, Min range of motion. Extremities: normal pulses, No calf tenderness, No cyanosis Neurological: nl mental status, nl speech, nl strength Skin: nl turgor, No diaphoresis, No rash or lesions Lymph: nl lymph nodes Results Free Text/Dictation CT: Small, thin posterior right hepatic subcapsular/subdiaphragmatic fluid collections are decreased size from prior and now measures up to 7 mm thickness anteroposteriorly, previously 16 mm. The prior described right subdiaphragmatic/ subphrenic collection now measures 6 mm in thickness, previously 19 mm thickness when remeasured similarly. The portal vein is patent. No pancreatic ductal dilatation. The spleen and right adrenals are unremarkable. Left adrenal nodularity on prior study is no longer seen. Unchanged gallbladder is contracted with mild pericholecystic fluid and inflammatory stranding. Right colonic resection changes with right lower quadrant ostomy. No evidence of bowel obstruction. No hydronephrosis. No obstructing renal stone. No significant retroperitoneal lymphadenopathy or evidence of pneumoperitoneum. Uterus is absent. Two left lower quadrant percutaneous drainage catheters are identified. The more superior left abdominal percutaneous drainage catheter tip traverses to the right with tip in the right lower quadrant/right upper pelvis without drainable fluid collection at the tip. The more inferior left lower quadrant percutaneous drainage catheter tip is identified in the right girma pelvis without drainable fluid collection at the tip. Mild chronic L1 compression deformity. IMPRESSION: Right colonic resection changes with right lower quadrant ostomy. No evidence of bowel obstruction. Small, thin posterior right hepatic subcapsular/subdiaphragmatic fluid collections are decreased size from prior. No new, drainable intra-abdominal abscess identified. No drainable fluid collection is seen at the 2 left lower abdominal percutaneous drain tips. Left adrenal nodularity on prior study is no longer seen. Unchanged gallbladder is contracted with mild pericholecystic fluid and inflammatory stranding. Result Diagram: 05/26/17 0459 05/26/17 0459 MICHELLE BOURNE MD May 28, 2017 12:16
--- NOTE | 2017-05-28 12:42 | CONS ---
Date/Time of Note Date/Time of Note DATE: 05/28/17 TIME: 12:40 Assessment/Plan Assessment/Plan Chief Complaint/Hosp Course SUBJECTIVE: Alert, looks comfortable, no fevers INDWELLINGS: JPs and colostomy. MICROBIOLOGY: Peritoneal fluid culture on 05/08/2017 grew Klebsiella pneumoniae , E. coli and Enterococcus species. Urine culture grew enterococcus species. Repeat urine and blood cultures have been negative. ANTIMICROBIALS: The patient is on PO Flagyl PHYSICAL EXAMINATION: GENERAL: Well-nourished, well-developed, elderly woman who is alert, in no distress. HEENT: Head atraumatic, normocephalic. Sclerae anicteric. Buccal mucosa pink. NECK: Supple. CHEST: Rise symmetrical. Breath sounds diminished to bases. HEART: S1, S2. ABDOMEN: Soft. Bowel sounds present. EXTREMITIES: Without cyanosis. ASSESSMENT: 1. Systemic inflammatory response syndrome 2. History of colon adenocarcinoma, status post laparoscopic right colectomy on 04/30/2017 4. Postoperative anastomotic leak status post laparoscopic washouts and repair of anastomotic enterotomy with an ileostomy on 05/08/2017 5. Evidence of small hepatic abscesses as per CT of the abdomen and pelvis with evidence of inflamed fat with pockets of fluid in the right pericolic gutter==> on Flagyl. 6. Left adrenal gland nodule, questionable small adrenal abscess. 7. Anemia. 8. History of GI bleeding. PLAN: Remains stable, continue present care, anticipate dc on po Flagyl for 10 more days==> DW DR Sheppard Problems: Consultation Date/Type/Reason Admit Date/Time May 07, 2017 at 20:57 Initial Consult Date 05/07/17 Type of Consultation: ID Referring Provider: ANA GALLEGO MD Exam/Review of Systems Vital Signs Vitals Vital Signs Date Time Temp Pulse Resp B/P Pulse Ox O2 Delivery O2 Flow Rate FiO2 05/28/17 08:30 98.4 89 20 129/60 97 05/25/17 14:00 Room Air Intake and Output 05/27/17 05/27/17 05/28/17 15:00 23:00 07:00 Intake Total 680 ml 720 ml Output Total 600 ml 310 ml Balance 80 ml 410 ml Results Result Diagram: 05/26/17 0459 05/26/17 0459 Medications Medications Current Medications Morphine Sulfate (morphine) 2 mg Q4H PRN IV PAIN LEVEL 7-10 Last administered on 05/18/17 08:23; Admin Dose 2 MG; Start 05/07/17 at 22:30 Hydromorphone HCl 0.5 mg 0.5 mg Q3H PRN IV PAIN Last administered on 20:00; Admin Dose 0.5 MG; Start 05/08/17 at 06:15 Ondansetron HCl/ Dextrose (Zofran Inj/D5W) 54 ml @ 108 mls/hr Q6H PRN IV NAUSEA AND/OR VOMITING Last administered on 05/20/17 09:31; Admin Dose 108 MLS /HR; Start 05/08/17 at 06:30 Famotidine (Pepcid) 20 mg BID PO Last administered on 05/28/17 08:33; Admin Dose 20 MG; Start 05/10/17 at 21:00 Acetaminophen/ Hydrocodone Bitart ([place] (10/325)) 1 tab Q6H PRN PO PAIN Last administered on 05/18/17 06:30; Admin Dose 1 TAB; Start 05/13/17 at 00:00 Metronidazole (Flagyl) 500 mg Q8 PO Last administered on 05/28/17 06:40; Admin Dose 500 MG; Start 05/24/17 at 14:00; Stop 06/06/17 at 13:59 Ferrous Sulfate (Ferrous Sulfate (Ec)) 325 mg BID PO Last administered on 08:33; Admin Dose 325 MG; Start 05/24/17 at 21:00 STEPHENIE WAGNER NP May 28, 2017 12:42
[2017-05-28 15:30] VITALS: BP 99/57; RESP 20
[2017-05-28] MEDS ORDERED: ONDANSETRON 4 MG TAB PO PRN (15:30)
--- NOTE | 2017-05-28 16:18 | PDOCDIS ---
Discharge Instructions DIAGNOSIS Discharge Diagnosis sepsis from anastomotic leak warranting surgical repair, subcapsular hepatic abscess CONDITION Patient Condition: Stable HOME CARE INSTRUCTIONS: Diet Instructions: RegularSpecial Diet: SOFT ACTIVITY: Activity Restrictions: Slowly Increase Activity Rest between Activity Avoid heavy lifting Bathing Restrictions: Shower FOLLOW UP/APPOINTMENTS Follow-up Plan If you have any issues/problems with your ostomy or your drains, call Dr Sheppard 's office immediately Si tiene algn problema / problema con siddiqui ostoma o drenajes, llame a la oficina del Dr. Sheppard inmediatamente Follow up with your surgeon, Dr Sheppard within 1 week Moni un seguimiento con siddiqui cirujano, el Dr. Sheppard dentro de 1 semana Address [address] [place] [address] Follow up with your oncologist, Dr Benton, within 2 weeks Address [address] [place] [address] BRO CHAU MD May 28, 2017 16:18
--- NOTE | 2017-05-28 16:22 | DS ---
Date/Time of Note Date/Time of Note DATE: 05/28/17 TIME: 16:19 Discharge Summary Admission/Discharge Info Admit Date/Time May 07, 2017 at 20:57 Discharge Date/Time Discharge Diagnosis sepsis from anastomotic leak warranting surgical repair Patient Condition: Stable Consults general surgery, ID Procedures 11.10 CT AP IMPRESSION: 1. There is free air in the upper abdomen, greater than expected for 7-day post laparoscopic surgical air. 2. Scattered air in the mesentery adjacent to region of right hemicolectomy surgery, concerning for an anastomotic leak. 3. There is no evident free fluid in the region of concern for anastomotic leak , although there is mild free fluid in the pelvis. 4. Pulmonary fibrosis at the lung bases with in-stent honeycombing seen at the bilateral posterior costophrenic angles. 5. Gallbladder wall thickening versus pericholecystic fluid. 8. Nonspecific mild small bowel ileus. 11.11 CT AP IMPRESSION: Confirmed anastomotic leak at the right hemicolectomy site. Extravasation of contrast is seen. Free intraperitoneal air and stranding again seen.. 11.11 Operation(s) Performed: 1. Laparoscopic washout and repair of an anastomotic enterotomy 2. Loop ileostomy with the lower opening as the proximal ileum with primary drainage and upper opening as the distal ileum going to the anastomosis and colon 3. Laparoscopic implantation of xenograft biologic over the anastomosis for improved healing 4. Local anesthetic injection WASHOUT FLUID CULTURE Microbiology GRAM STAIN Final POLYMORPH. LEUKOCYTE 3+ GRAM POS COCCI IN PAIRS 2+ GRAM POSITIVE RODS 1+ GRAM NEGATIVE RODS 1+ BODY FLUID CULTURE Final Organism 1 K.PNEUMONIAE SSP PNEUMONIAE QUANTITY 3+ Organism 2 ESCHERICHIA COLI QUANTITY 2+ Organism 3 ENTEROCOCCUS SPECIES QUANTITY 1+ K PNE SPP E COLI ENT SPS M.I.C. RX M.I.C. RX M.I.C. RX --------- --- --------- --- --------- --- AMPICILLIN >=32 R <=2 S CEFAZOLIN R R CEFOTAXIME S S CIPROFLOXACIN <=0.25 S <=0.25 S GENTAMICIN <=1 S <=1 S LEVOFLOXACIN <=0.12 S <=0.12 S PENICILLIN-G 1 S VANCOMYCIN 2 S TOBRAMYCIN <=1 S <=1 S TRIMETHOPRIM/SULFAMETHOXAZOLE >=320 R >=320 R 11.[address] AP Peritoneal cavity: In the interval since the prior exam, 2 surgical drains have been placed. 1. There is a surgical drain inserted via the left upper quadrant that courses inferior to the left and right lobes of the liver with the tip in the right paracolic gutter. There is inflamed fat in the extraperitoneal compartment of the right paracolic gutter with pockets of fluid in the region of the catheter and a single bubble of gas. Negative for rim-enhancing abscess. 2. A second surgical drain has been placed in the left lower quadrant and the tip is in the right pelvis. No abnormal collections are identified along the course of this drain. There are small subcapsular rim-enhancing fluid collections overlying the right hepatic lobe in keeping with subcapsular abscesses. Dominant collections are as follows: Posterior right lobe (3/48 and 601/69): 1.2 x 2.9 x 3.3 cm Superior right lobe subphrenic (3/23 and 601/44): 1.5 x 4.6 x 1.9 cm Previously identified free intraperitoneal air has resolved. Abdominal wall: Body wall edema. Right lower quadrant to loop ileostomy. Injection granulomas right buttocks. IMPRESSION: 1. Status post right hemicolectomy with an ileocolic anastomosis. In the interval since prior exam, there has been a right lower quadrant loop ileostomy. Bowel loops are decompressed without obstruction. Negative for evidence of extravasated contrast at the ileocolic anastomosis on today's scan. 2. Status post placement of a surgical drain inferior to the liver terminating in the right paracolic gutter. There is inflamed fat with pockets of fluid in the right paracolic gutter in keeping with infection. Negative for rim- enhancing abscess. 3. Small subcapsular abscesses overlying the right hepatic lobe are new since prior exam. Dominant subcapsular liver abscesses have been described above. 4. Status post placement of a surgical drain in the pelvis. No fluid collections are identified along the course of this drain. 5. New nodule left adrenal gland may represent a small adrenal abscess in this clinical setting. Recommend attention on follow-up imaging. 6. Gallbladder wall thickening is nonspecific and is likely related to adjacent subcapsular liver abscesses. Gallbladder could better be evaluated with right upper quadrant ultrasound or HIDA scan if the clinical situation warrants. 11.30 CT AP IMPRESSION: Right colonic resection changes with right lower quadrant ostomy. No evidence of bowel obstruction. Small, thin posterior right hepatic subcapsular/subdiaphragmatic fluid collections are decreased size from prior. No new, drainable intra-abdominal abscess identified. No drainable fluid collection is seen at the 2 left lower abdominal percutaneous drain tips. Left adrenal nodularity on prior study is no longer seen. Unchanged gallbladder is contracted with mild pericholecystic fluid and inflammatory stranding. 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 On presentation to the ER, she was febrile with a temperature of 101. Labs shows a WBC of 20,000. CT abdomen pelvis showed free air in the right abdomen, scattered air in the mesentery adjacent to region of right hemicolectomy surgery, concerning for an anastomotic leak, pulmonary fibrosis at the lung bases with in-stent honeycombing seen at the bilateral posterior costophrenic angles and Gallbladder wall thickening versus pericholecystic fluid. Currently patient is admitted to ICU. An OG tube is been placed since placement of an NG tube was unsuccessful and also caused bleeding. So far that has been about 900 cc of gastric contents aspirated through the OG tube. The OG tube is also making her uncomfortable. Dr. Sheppard from general surgery is already on board. Hospital Course 81-year-old female with recent R colectomy 11.3 for colon ca presented with abd pain, found to have sepsis from anastomotic leak warranting surgical repair which pt underwent . ( laparoscopic washouts and repair of anastomotic enterotomy with an ileostomy). Pt initially in the ICU, was transferred to the floor 11.13. Post op course notable for leukocytosis which did not seem to be resolving, imaging 11.19 with hepatic subcapsular abscess and adrenal nodule v abscess General surgery discussed abscess findings with IR, per my discussion with the general surgeon, it was determined by IR that the abscess would not be amenable to drainage. Imaging was repeated 1 day prior to discharge with significant improvement in subcapsular abscess and resolution of the adrenal abnormality. ID advised an additional 10 days of PO metronidazole. Of note, patient with iron deficiency anemia, most likely 2/2 her colon cancer. 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 Home Meds Active Scripts Famotidine* (Famotidine*) 20 Mg Tablet, 20 MG PO BID for 30 Days, #60 TAB Prov:BRO CHAU MD 05/26/17 Ferrous Sulfate* (Ferrous Sulfate*) 325 Mg Tabec, 325 MG PO BID for 30 Days, # 60 TAB Prov:BRO CHAU MD 05/26/17 Metronidazole* (Flagyl*) 500 Mg Tablet, 500 MG PO Q8 for 7 Days, #21 TAB Prov:BRO CHAU MD 05/26/17 Follow-up Plan If you have any issues/problems with your ostomy or your drains, call Dr Sheppard 's office immediately Si tiene algn problema / problema con siddiqui ostoma o drenajes, llame a la oficina del Dr. Sheppard inmediatamente Follow up with your surgeon, Dr Sheppard within 1 week Moni un seguimiento con siddiqui cirujano, el Dr. Sheppard dentro de 1 semana Address [address] [place] [address] Follow up with your oncologist, Dr Benton, within 2 weeks Address [address] [place] [address] Primary Care Provider [facility]:[address] [place] [address] phone # Time spent on discharge: > 30 minutes Copies To: CC: MICHELLE SHEPPARD MD, ELLEN MD May 28, 2017 16:22
[2017-05-28] MEDS ORDERED: METR500T14 PO (16:27)
--- NOTE | 2017-05-28 17:55 | PN ---
Date/Time of Note Date/Time of Note DATE: 05/28/17 TIME: 17:55 Assessment/Plan VTE Prophylaxis VTE Prophylaxis Intervention: SCD's Lines/Catheters IV Catheter Type (from Nrsg): Saline Lock Urinary Cath still in place: No Assessment/Plan Assessment/Plan 81-year-old female with recent R colectomy 11.3 for colon ca presented with abd pain, found to have sepsis from anastomotic leak warranting surgical repair which pt underwent 05.08. Imaging .19 with hepatic subcapsular abscess, improved on repeat CT .. Medically stable for transfer to SNF. #intraabd infection from anastomotic leak, also now with hepatic subcapsular abscess. REPEAT IMAGING WITH IMPROVEMENT IN ABSCESS. ADRENAL ABNORMALITY RESOLVED cont PO metronidazole x 9 more days #iron def Anemia:: likely 2/2 colon ca cont PO iron inactive problems: pulmonary fibrosis: home meds h/o esophagitis and gastritis: cont home h2b colon ca: outpatient onc f/u home with HH in AM. CM has arranged Subjective 24 Hr Interval Summary Free Text/Dictation going to her friend's house tomorrow Exam/Review of Systems Vital Signs Vitals Vital Signs Date Time Temp Pulse Resp B/P Pulse Ox O2 Delivery O2 Flow Rate FiO2 05/28/17 15:30 98.0 87 20 99/57 96 05/25/17 14:00 Room Air Intake and Output 05/27/17 05/27/17 05/28/17 15:00 23:00 07:00 Intake Total 680 ml 720 ml Output Total 600 ml 310 ml Balance 80 ml 410 ml Exam nad resp nonlabored abd drains and ostomy stable no rashes no edema Results Result Diagram: 05/26/17 0459 05/26/17 0459 Medications Medications Current Medications Morphine Sulfate (morphine) 2 mg Q4H PRN IV PAIN LEVEL 7-10 Last administered on 05/18/17 08:23; Admin Dose 2 MG; Start 05/07/17 at 22:30 Hydromorphone HCl 0.5 mg 0.5 mg Q3H PRN IV PAIN Last administered on 20:00; Admin Dose 0.5 MG; Start 05/08/17 at 06:15 Ondansetron HCl/ Dextrose (Zofran Inj/D5W) 54 ml @ 108 mls/hr Q6H PRN IV NAUSEA AND/OR VOMITING Last administered on 05/20/17 09:31; Admin Dose 108 MLS /HR; Start 05/08/17 at 06:30 Famotidine (Pepcid) 20 mg BID PO Last administered on 05/28/17 08:33; Admin Dose 20 MG; Start 05/10/17 at 21:00 Acetaminophen/ Hydrocodone Bitart ([place] (10325)) 1 tab Q6H PRN PO PAIN Last administered on 05/18/17 06:30; Admin Dose 1 TAB; Start 05/13/17 at 00:00 Metronidazole (Flagyl) 500 mg Q8 PO Last administered on 05/28/17 14:53; Admin Dose 500 MG; Start 05/24/17 at 14:00; Stop 06/06/17 at 13:59 Ferrous Sulfate (Ferrous Sulfate (Ec)) 325 mg BID PO Last administered on 08:33; Admin Dose 325 MG; Start 05/24/17 at 21:00 Ondansetron HCl (Zofran Tab) 4 mg Q6H PRN PO NAUSEA AND/OR VOMITING Last administered on 05/28/17 15:11; Admin Dose 4 MG; Start 05/28/17 at 15:30 BRO CHAU MD May 28, 2017 17:55
[2017-05-28 19:49] VITALS: BP 112/68; PULSE 98; RESP 22
[2017-05-29 02:00] VITALS: BP 113/66; RESP 20
[2017-05-29] MEDS: metroNIDAZOLE 500 MG TAB PO SCH ×3 (05:53→22:00)
[2017-05-29 06:18] VITALS: BP 113/68; PULSE 85; RESP 18
[2017-05-29 07:30] VITALS: BP 116/69; RESP 20
[2017-05-29] MEDS: FAMOTIDINE 20 MG TAB PO SCH ×2 (08:49→21:00)
[2017-05-29] MEDS: FERROUS SULFATE (EC) 325 MG TAB PO SCH ×2 (08:49→21:00)
--- NOTE | 2017-05-29 13:03 | PN ---
Date/Time of Note Date/Time of Note DATE: 05/29/17 TIME: 13:02 Assessment/Plan VTE Prophylaxis VTE Prophylaxis Intervention: SCD's Lines/Catheters IV Catheter Type (from Nrsg): Saline Lock Urinary Cath still in place: No Assessment/Plan Assessment/Plan 81-year-old female with recent R colectomy 11.3 for colon ca presented with abd pain, found to have sepsis from anastomotic leak warranting surgical repair which pt underwent 05.08. Imaging .19 with hepatic subcapsular abscess, improved on repeat CT .. Medically stable for transfer to SNF or home with HH #intraabd infection from anastomotic leak, also now with hepatic subcapsular abscess. REPEAT IMAGING WITH IMPROVEMENT IN ABSCESS. ADRENAL ABNORMALITY RESOLVED cont PO metronidazole x 8 more days #iron def Anemia:: likely 2/2 colon ca cont PO iron inactive problems: pulmonary fibrosis: home meds h/o esophagitis and gastritis: cont home h2b colon ca: outpatient onc f/u home with HH when pt is ready. CM has arranged Subjective 24 Hr Interval Summary Free Text/Dictation Pt crying, says she is too scared to go home. Feels overwhelmed by ostomy and drains Exam/Review of Systems Vital Signs Vitals Vital Signs Date Time Temp Pulse Resp B/P Pulse Ox O2 Delivery O2 Flow Rate FiO2 05/29/17 07:30 98.0 92 20 116/69 96 05/29/17 06:18 Room Air 05/29/17 06:10 2.0 Intake and Output 05/28/17 05/28/17 05/29/17 15:00 23:00 07:00 Intake Total 620 ml 800 ml Output Total 700 ml 905 ml Balance -80 ml -105 ml Exam tearful resp nonlabored no abd distension no edema no rashes Results Result Diagram: 05/26/17 0459 05/26/17 0459 Medications Medications Current Medications Morphine Sulfate (morphine) 2 mg Q4H PRN IV PAIN LEVEL 7-10 Last administered on 05/18/17 08:23; Admin Dose 2 MG; Start 05/07/17 at 22:30 Hydromorphone HCl 0.5 mg 0.5 mg Q3H PRN IV PAIN Last administered on 20:00; Admin Dose 0.5 MG; Start 05/08/17 at 06:15 Ondansetron HCl/ Dextrose (Zofran Inj/D5W) 54 ml @ 108 mls/hr Q6H PRN IV NAUSEA AND/OR VOMITING Last administered on 05/20/17 09:31; Admin Dose 108 MLS /HR; Start 05/08/17 at 06:30 Famotidine (Pepcid) 20 mg BID PO Last administered on 05/29/17 08:49; Admin Dose 20 MG; Start 05/10/17 at 21:00 Acetaminophen/ Hydrocodone Bitart ([place] (10/325)) 1 tab Q6H PRN PO PAIN Last administered on 05/18/17 06:30; Admin Dose 1 TAB; Start 05/13/17 at 00:00 Metronidazole (Flagyl) 500 mg Q8 PO Last administered on 05/29/17 05:53; Admin Dose 500 MG; Start 05/24/17 at 14:00; Stop 06/06/17 at 13:59 Ferrous Sulfate (Ferrous Sulfate (Ec)) 325 mg BID PO Last administered on 08:49; Admin Dose 325 MG; Start 05/24/17 at 21:00 Ondansetron HCl (Zofran Tab) 4 mg Q6H PRN PO NAUSEA AND/OR VOMITING Last administered on 05/28/17 15:11; Admin Dose 4 MG; Start 05/28/17 at 15:30 BRO CHAU MD May 29, 2017 13:03
[2017-05-29 15:08] VITALS: BP 131/81; RESP 20
--- NOTE | 2017-05-29 16:58 | PN ---
Date/Time of Note Date/Time of Note DATE: 05/29/17 TIME: 16:54 Assessment/Plan Lines/Catheters IV Catheter Type (from [facility]): Saline Lock Aguilar in Place (from [facility]): No Assessment/Plan Chief Complaint/Hosp Course 1. Abdominal pain, significant leukocytosis, CT with free air and contrast leak at anastomosis with resultant peritonitis and sepsis; s/p ascending colon adenocarcinoma status post laparoscopic right colectomy 04/30/17; Anastomotic leak mid staple line with open jaymie for about a 3 mm enterotomy with peritonitis and sepsis; Improved. Bowel function. Repeat CT noted. Leukocytosis normalized -po abx per ID (input appreciated) -IS -justin drain care -ambulate/PT -diet -pulmonary toilette -may be discharged per medical team to snf vs. home w for drain care. To follow in office in 1 week. Please have patient record output daily. 2. 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 -onc follow up as outpt 3. Esophagitis: -Diet and lifestyle optimization -Antacids 4. Hemorrhoids -Dietary and lifestyle optimization 5. Gastritis -Diet and lifestyle optimization -h2 antagonist 6. Anemia secondary to above -As above 7. Hx GI bleed, multifactorial, secondary to above. Stable -Monitor -As above 8. Leukocytosis: normalized -further workup if persistent 9. Small subcapsular rim-enhancing fluid collections overlying the right hepatic lobe: improved per repeat ct Thank you. Patient seen and examined in collaboration with Dr. Jw Sheppard. Problems: Subjective 24 Hr Interval Summary Had an episode of panic after she was taught how to empty her own colostomy. Had episode of tachycardia. No fevers, chills, sob, congested cough, cp, palpitations, soto, dizziness, n/v/d/dysuria. Drains with min output. Exam/Review of Systems Vital Signs Vitals Vital Signs Date Time Temp Pulse Resp B/P Pulse Ox O2 Delivery O2 Flow Rate FiO2 05/29/17 15:08 98.7 109 20 131/81 98 05/29/17 06:18 Room Air 05/29/17 06:10 2.0 Intake and Output 05/28/17 05/28/17 05/29/17 14:59 22:59 06:59 Intake Total 620 ml 800 ml Output Total 700 ml 905 ml Balance -80 ml -105 ml Exam Free Text/Dictation Constitutional: alert, oriented, Psych: min anxious Head: atraumatic, normocephalic Eyes: EOMI, PERRL, nl conjunctiva, No icteric ENMT: mucosa pink and moist, nl external ears & nose, nl lips & teeth Neck: non-tender, supple, No jvd Respiratory: normal air movement, No congested cough, No labored breathing Cardiovascular: no regular rate and rhythm, No edema Gastrointestinal: non tender epigastric. No erythema/drainage/bruising. Ileostomy pink and moist with gas/stool; midline incision site dry; JPs noted ( upper justin with creamy drainage, lower JUSTIN with serous drainage) Musculoskeletal: nl extremities to inspection, No joint tenderness, Min range of motion. Extremities: normal pulses, No calf tenderness, No cyanosis Neurological: nl mental status, nl speech, nl strength Skin: nl turgor, No diaphoresis, No rash or lesions Lymph: nl lymph nodes Results Result Diagram: 05/26/17 0459 05/26/17 0459 GERALDO SILVA NP May 29, 2017 16:58
[2017-05-29 17:11] VITALS: PULSE 84
[2017-05-29 20:00] VITALS: BP 105/66; RESP 18
[2017-05-30 02:00] VITALS: BP 118/70; RESP 18
[2017-05-30] MEDS: metroNIDAZOLE 500 MG TAB PO SCH ×3 (06:00→21:48)
[2017-05-30 07:53] VITALS: BP 107/56; RESP 16
[2017-05-30] MEDS: FERROUS SULFATE (EC) 325 MG TAB PO SCH ×2 (09:29→21:12)
[2017-05-30] MEDS: FAMOTIDINE 20 MG TAB PO SCH ×2 (09:29→21:00)
--- NOTE | 2017-05-30 12:39 | PN ---
Date/Time of Note Date/Time of Note DATE: 05/30/17 TIME: 12:37 Assessment/Plan VTE Prophylaxis VTE Prophylaxis Intervention: SCD's Lines/Catheters IV Catheter Type (from Nrsg): Saline Lock Urinary Cath still in place: No Assessment/Plan Assessment/Plan 81-year-old female with recent R colectomy 11.3 for colon ca presented with abd pain, found to have sepsis from anastomotic leak warranting surgical repair which pt underwent .. Imaging .19 with hepatic subcapsular abscess, improved on repeat CT .. Medically stable for transfer to SNF or home with HH #intraabd infection from anastomotic leak, also now with hepatic subcapsular abscess. REPEAT IMAGING WITH IMPROVEMENT IN ABSCESS. ADRENAL ABNORMALITY RESOLVED cont PO metronidazole x7 more days have texted surgeon to see if drains can be pulled prior to discharge given that the output seems fairly low #iron def Anemia:: likely 2/2 colon ca cont PO iron inactive problems: pulmonary fibrosis: home meds h/o esophagitis and gastritis: cont home h2b colon ca: outpatient onc f/u home with HH when pt is ready. CM has arranged, will need to clarify with CM just how much help pt will be getting at home Subjective 24 Hr Interval Summary Free Text/Dictation still crying and scared this AM. States she does not want to be a burden on friends/family when she is discharged Exam/Review of Systems Vital Signs Vitals Vital Signs Date Time Temp Pulse Resp B/P Pulse Ox O2 Delivery O2 Flow Rate FiO2 05/30/17 07:53 98.0 99 16 107/56 97 05/29/17 06:18 Room Air 05/29/17 06:10 2.0 Intake and Output 05/29/17 05/29/17 05/30/17 15:00 23:00 07:00 Intake Total 640 ml 154 ml Output Total 1105 ml Balance -465 ml 154 ml Exam anxious no mrg lungs clear abd drains and ostomy in place no rashes Results Result Diagram: 05/26/17 0459 05/26/17 0459 Medications Medications Current Medications Morphine Sulfate (morphine) 2 mg Q4H PRN IV PAIN LEVEL 7-10 Last administered on 05/18/17t 08:23; Admin Dose 2 MG; Start 05/07/17 at 22:30 Hydromorphone HCl 0.5 mg 0.5 mg Q3H PRN IV PAIN Last administered on 20:00; Admin Dose 0.5 MG; Start 05/08/17 at 06:15 Ondansetron HCl/ Dextrose (Zofran Inj/D5W) 54 ml @ 108 mls/hr Q6H PRN IV NAUSEA AND/OR VOMITING Last administered on 05/20/17 09:31; Admin Dose 108 MLS /HR; Start 05/08/17 at 06:30 Famotidine (Pepcid) 20 mg BID PO Last administered on 05/30/17 09:29; Admin Dose 20 MG; Start 05/10/17 at 21:00 Acetaminophen/ Hydrocodone Bitart ([place] (10/325)) 1 tab Q6H PRN PO PAIN Last administered on 05/18/17 06:30; Admin Dose 1 TAB; Start 05/13/17 at 00:00 Metronidazole (Flagyl) 500 mg Q8 PO Last administered on 05/29/17 14:02; Admin Dose 500 MG; Start 05/24/17 at 14:00; Stop 06/06/17 at 13:59 Ferrous Sulfate (Ferrous Sulfate (Ec)) 325 mg BID PO Last administered on 09:29; Admin Dose 325 MG; Start 05/24/17 at 21:00 Ondansetron HCl (Zofran Tab) 4 mg Q6H PRN PO NAUSEA AND/OR VOMITING Last administered on 05/28/17 15:11; Admin Dose 4 MG; Start 05/28/17 at 15:30 BRO CHAU MD May 30, 2017 12:39
[2017-05-30 14:00] VITALS: BP 124/75; RESP 18
--- NOTE | 2017-05-30 14:53 | PN ---
Date/Time of Note Date/Time of Note DATE: 05/30/17 TIME: 14:48 Assessment/Plan Lines/Catheters IV Catheter Type (from [facility]): Saline Lock Aguilar in Place (from [facility]): No Assessment/Plan Chief Complaint/Hosp Course 1. Abdominal pain, significant leukocytosis, CT with free air and contrast leak at anastomosis with resultant peritonitis and sepsis; s/p ascending colon adenocarcinoma status post laparoscopic right colectomy 04/30/17; Anastomotic leak mid staple line with open jaymie for about a 3 mm enterotomy with peritonitis and sepsis; Improved. Bowel function. Repeat CT noted. Leukocytosis normalized -po abx per ID (input appreciated) -IS -justin drain care -ambulate/PT -diet -pulmonary toilette -may be discharged per medical team to snf vs. home w for drain care. To follow in office in 1 week. Please have patient record output daily. 2. 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 -onc follow up as outpt 3. Esophagitis: -Diet and lifestyle optimization -Antacids 4. Hemorrhoids -Dietary and lifestyle optimization 5. Gastritis -Diet and lifestyle optimization -h2 antagonist 6. Anemia secondary to above -As above 7. Hx GI bleed, multifactorial, secondary to above. Stable -Monitor -As above 8. Anxiety: trouble with self ostomy care -pt teaching regarding ostomy, have pt perform own ostomy care 9. Small subcapsular rim-enhancing fluid collections overlying the right hepatic lobe: improved per repeat ct Thank you. Patient seen and examined in collaboration with Dr. Jw Sheppard. Problems: Subjective 24 Hr Interval Summary Feels well. Was able to empty her own ostomy today. No fevers, chills, sob, congested cough, cp, palpitations, soto, dizziness, n/v/d/dysuria. Exam/Review of Systems Vital Signs Vitals Vital Signs Date Time Temp Pulse Resp B/P Pulse Ox O2 Delivery O2 Flow Rate FiO2 05/30/17 07:53 98.0 99 16 107/56 97 05/29/17 06:18 Room Air 05/29/17 06:10 2.0 Intake and Output 05/29/17 05/29/17 05/30/17 15:00 23:00 07:00 Intake Total 640 ml 154 ml Output Total 1105 ml Balance -465 ml 154 ml Exam Free Text/Dictation Constitutional: alert, oriented, Psych: min anxious Head: atraumatic, normocephalic Eyes: EOMI, PERRL, nl conjunctiva, No icteric ENMT: mucosa pink and moist, nl external ears & nose, nl lips & teeth Neck: non-tender, supple, No jvd Respiratory: normal air movement, No congested cough, No labored breathing Cardiovascular: no regular rate and rhythm, No edema Gastrointestinal: non tender epigastric. No erythema/drainage/bruising. Ileostomy pink and moist with gas/stool; midline incision site dry; JPs noted ( both draining serous drainage) Musculoskeletal: nl extremities to inspection, No joint tenderness, Min range of motion. Extremities: normal pulses, No calf tenderness, No cyanosis Neurological: nl mental status, nl speech, nl strength Skin: nl turgor, No diaphoresis, No rash or lesions Lymph: nl lymph nodes Results Result Diagram: 05/26/17 0459 05/26/17 0459 GERALDO SILVA NP May 30, 2017 14:53
--- NOTE | 2017-05-30 19:24 | CONS ---
Date/Time of Note Date/Time of Note DATE: 05/30/17 TIME: 19:23 Assessment/Plan Assessment/Plan Chief Complaint/Hosp Course SUBJECTIVE: Alert, looks comfortable, no fevers INDWELLINGS: JPs and colostomy. MICROBIOLOGY: Peritoneal fluid culture on 05/08/2017 grew Klebsiella pneumoniae , E. coli and Enterococcus species. Urine culture grew enterococcus species. Repeat urine and blood cultures have been negative. ANTIMICROBIALS: PO Flagyl PHYSICAL EXAMINATION: GENERAL: Well-nourished, well-developed, elderly woman who is alert, in no distress. HEENT: Head atraumatic, normocephalic. Sclerae anicteric. Buccal mucosa pink. NECK: Supple. CHEST: Rise symmetrical. Breath sounds diminished to bases. HEART: S1, S2. ABDOMEN: Soft. Bowel sounds present. EXTREMITIES: Without cyanosis. ASSESSMENT: 1. Systemic inflammatory response syndrome 2. History of colon adenocarcinoma, status post laparoscopic right colectomy on 04/30/2017 4. Postoperative anastomotic leak status post laparoscopic washouts and repair of anastomotic enterotomy with an ileostomy on 05/08/2017 5. Evidence of small hepatic abscesses as per CT of the abdomen and pelvis with evidence of inflamed fat with pockets of fluid in the right pericolic gutter==> on Flagyl. 6. Left adrenal gland nodule, questionable small adrenal abscess. 7. Anemia. 8. History of GI bleeding. PLAN: Remains stable, continue present care, pending SNF, continue po Flagyl staff Problems: Consultation Date/Type/Reason Admit Date/Time May 07, 2017 at 20:57 Initial Consult Date 05/07/17 Type of Consultation: ID Referring Provider: ANA GALLEGO MD Exam/Review of Systems Vital Signs Vitals Vital Signs Date Time Temp Pulse Resp B/P Pulse Ox O2 Delivery O2 Flow Rate FiO2 05/30/17 14:00 98.5 102 18 124/75 90 05/29/17 06:18 Room Air 05/29/17 06:10 2.0 Intake and Output 05/29/17 05/29/17 05/30/17 15:00 23:00 07:00 Intake Total 640 ml 154 ml Output Total 1105 ml Balance -465 ml 154 ml Results Result Diagram: 05/26/17 0459 05/26/17 0459 Medications Medications Current Medications Morphine Sulfate (morphine) 2 mg Q4H PRN IV PAIN LEVEL 7-10 Last administered on 05/18/17 08:23; Admin Dose 2 MG; Start 05/07/17 at 22:30 Hydromorphone HCl 0.5 mg 0.5 mg Q3H PRN IV PAIN Last administered on 20:00; Admin Dose 0.5 MG; Start 05/08/17 at 06:15 Ondansetron HCl/ Dextrose (Zofran Inj/D5W) 54 ml @ 108 mls/hr Q6H PRN IV NAUSEA AND/OR VOMITING Last administered on 05/20/17 09:31; Admin Dose 108 MLS /HR; Start 05/08/17 at 06:30 Famotidine (Pepcid) 20 mg BID PO Last administered on 05/30/17 09:29; Admin Dose 20 MG; Start 05/10/17 at 21:00 Acetaminophen/ Hydrocodone Bitart ([place] (10/325)) 1 tab Q6H PRN PO PAIN Last administered on 05/18/17 06:30; Admin Dose 1 TAB; Start 05/13/17 at 00:00 Metronidazole (Flagyl) 500 mg Q8 PO Last administered on 05/29/17 14:02; Admin Dose 500 MG; Start 05/24/17 at 14:00; Stop 06/06/17 at 13:59 Ferrous Sulfate (Ferrous Sulfate (Ec)) 325 mg BID PO Last administered on 09:29; Admin Dose 325 MG; Start 05/24/17 at 21:00 Ondansetron HCl (Zofran Tab) 4 mg Q6H PRN PO NAUSEA AND/OR VOMITING Last administered on 05/28/17 15:11; Admin Dose 4 MG; Start 05/28/17 at 15:30 STEPHENIE WAGNER NP May 30, 2017 19:24
[2017-05-30 19:43] VITALS: BP 112/65; RESP 18
[2017-05-31 01:43] VITALS: BP 120/71; RESP 18
[2017-05-31] MEDS: metroNIDAZOLE 500 MG TAB PO SCH ×3 (06:33→21:31)
[2017-05-31 07:54] VITALS: BP 126/76; RESP 18
[2017-05-31] MEDS: FAMOTIDINE 20 MG TAB PO SCH ×2 (09:00→21:31)
[2017-05-31] MEDS: FERROUS SULFATE (EC) 325 MG TAB PO SCH ×2 (09:00→21:31)
--- NOTE | 2017-05-31 10:49 | PN ---
Date/Time of Note Date/Time of Note DATE: 05/31/17 TIME: 10:45 Assessment/Plan Lines/Catheters IV Catheter Type (from [facility]): Saline Lock Aguilar in Place (from [facility]): No Assessment/Plan Chief Complaint/Hosp Course 1. Abdominal pain, significant leukocytosis, CT with free air and contrast leak at anastomosis with resultant peritonitis and sepsis; s/p ascending colon adenocarcinoma status post laparoscopic right colectomy 04/30/17; Anastomotic leak mid staple line with open jaymie for about a 3 mm enterotomy with peritonitis and sepsis; Improved. Bowel function. Repeat CT noted. Leukocytosis normalized -po abx per ID (input appreciated) -IS -justin drain care -ambulate/PT -diet -pulmonary toilette -may be discharged per medical team to snf vs. home w for drain care. To follow in office in 1 week. Please have patient record output daily. 2. 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 -onc follow up as outpt 3. Esophagitis: -Diet and lifestyle optimization -Antacids 4. Hemorrhoids -Dietary and lifestyle optimization 5. Gastritis -Diet and lifestyle optimization -h2 antagonist 6. Anemia secondary to above -As above 7. Hx GI bleed, multifactorial, secondary to above. Stable -Monitor -As above 8. Anxiety: trouble with self ostomy care -pt teaching regarding ostomy, have pt perform own ostomy care 9. Small subcapsular rim-enhancing fluid collections overlying the right hepatic lobe: improved per repeat ct Thank you. Patient seen and examined in collaboration with Dr. Jw Sheppard. Problems: Subjective 24 Hr Interval Summary No acute events overnight. Drains still with ooutput. Bowel function per ostomy. Awaiting placement. No fevers, chills, sob, congested cough, cp, palpitations, soto, dizziness, n/v/d/dysuria. Exam/Review of Systems Vital Signs Vitals Vital Signs Date Time Temp Pulse Resp B/P Pulse Ox O2 Delivery O2 Flow Rate FiO2 05/31/17 07:54 98.0 97 18 126/76 98 05/29/17 06:18 Room Air 05/29/17 06:10 2.0 Intake and Output 1205/30/17 05/31/17 15:00 23:00 07:00 Intake Total 640 ml 440 ml Output Total 250 ml 1400 ml 1406 ml Balance -250 ml -760 ml -966 ml Exam Free Text/Dictation Constitutional: alert, oriented, Psych: min anxious Head: atraumatic, normocephalic Eyes: EOMI, PERRL, nl conjunctiva, No icteric ENMT: mucosa pink and moist, nl external ears & nose, nl lips & teeth Neck: non-tender, supple, No jvd Respiratory: normal air movement, No congested cough, No labored breathing Cardiovascular: no regular rate and rhythm, No edema Gastrointestinal: non tender epigastric. No erythema/drainage/bruising. Ileostomy pink and moist with gas/stool; midline incision site dry; JPs noted ( both draining serous drainage) Musculoskeletal: nl extremities to inspection, No joint tenderness, Min range of motion. Extremities: normal pulses, No calf tenderness, No cyanosis Neurological: nl mental status, nl speech, nl strength Skin: nl turgor, No diaphoresis, No rash or lesions Lymph: nl lymph nodes GERALDO SILVA NP May 31, 2017 10:49
[2017-05-31 15:17] VITALS: BP 120/74; RESP 18
--- NOTE | 2017-05-31 15:41 | DS ---
Date/Time of Note Date/Time of Note DATE: 05/31/17 TIME: 15:36 Discharge Summary Admission/Discharge Info Admit Date/Time May 07, 2017 at 20:57 Discharge Date/Time Discharge Diagnosis 1.anastomotic leak with resultant peritonitis causing sepsis -status post surgical repair. 2. pulmonary fibrosis 3. h/o esophagitis and gastritis 4. colon ca - 5.2 cm low grade moderately differentiated with focal mucinous differentiation. pT3 pN0. s/p laparoscopic right colectomy, April 30, 2017. 5. Anemia: Status post PRBC transfusion earlier this admission Patient Condition: Stable Hospital Course 81-year-old female with a history of gastritis, esophagitis, anemia, hemorrhoids , and ascending colon adenocarcinoma status post laparoscopic right colectomy 2 days prior to this admission who presented to the ER with abdominal pain and distention. On presentation to the ER, she was febrile with a temperature of 101. Labs showed a WBC of 20,000. CT abdomen pelvis showed free air in the right abdomen, scattered air in the mesentery adjacent to region of right hemicolectomy surgery, concerning for an anastomotic leak, pulmonary fibrosis at the lung bases with in-stent honeycombing seen at the bilateral posterior costophrenic angles and Gallbladder wall thickening versus pericholecystic fluid. Patient was admitted to ICU. An OG tube is been placed since placement of an NG tube was unsuccessful and also caused bleeding, with 900 cc of gastric contents aspirated through the OG tube. Dr. Sheppard from general surgery was made aware on admission. Patient was taken to the OR and underwent laparoscopic washout and repair of an anastomotic enterotomy. In addition to surgery team, she was also seen by infectious disease team and case management team. Her colostomy bag and drains were monitored by surgery team. She was placed on antibiotics given positive wound culture and urine culture results. Eventually she was able to ambulate with assistance, tolerated p.o. diet. After getting clearance from [employer] consultant teams, she will be discharged home today improved condition, and go home with home health nursing to help with colostomy bag and drain management. She will follow with surgery and primary care doctor teams in the clinic in the next few days. She will need antibiotics for 6 more days, see below for full list of discharge medication list. Home Meds Active Scripts Metronidazole (Flagyl) 500 Mg Tab, 500 MG PO Q8 for 10 Days, #30 TAB Prov:BRO CHAU MD 05/28/17 Famotidine* (Famotidine*) 20 Mg Tablet, 20 MG PO BID for 30 Days, #60 TAB Prov:BRO CHAU MD 05/26/17 Ferrous Sulfate* (Ferrous Sulfate*) 325 Mg Tabec, 325 MG PO BID for 30 Days, # 60 TAB Prov:BRO CHAU MD 05/26/17 Follow-up Plan If you have any issues/problems with your ostomy or your drains, call Dr Sheppard 's office immediately Si tiene algn problema / problema con siddiqui ostoma o drenajes, llame a la oficina del Dr. Sheppard inmediatamente Follow up with your surgeon, Dr Sheppard within 1 week Moni un seguimiento con siddiqui cirujano, el Dr. Sheppard dentro de 1 semana Address [address] [place] [address] Follow up with your oncologist, Dr Benton, within 2 weeks Address [address] [place] [address] Primary Care Provider [facility]:[address] [place] [address] phone # Time spent on discharge: > 30 minutes SARAH AVILA May 31, 2017 15:41 Address [address] [place] [address] Follow up with your oncologist, Dr Benton, within 2 weeks Address [address] [place] [address] Primary Care Provider [facility]:[address] [place] [address] phone # Time spent on discharge: > 30 minutes SARAH AVILA May 31, 2017 15:41
[2017-05-31 20:25] VITALS: BP 109/64; RESP 18
[2017-06-01 02:46] VITALS: BP 127/75; RESP 20
[2017-06-01] MEDS: metroNIDAZOLE 500 MG TAB PO SCH (06:16)
[2017-06-01] MEDS: FERROUS SULFATE (EC) 325 MG TAB PO SCH (08:06)
[2017-06-01] MEDS: FAMOTIDINE 20 MG TAB PO SCH (08:06)
[2017-06-01 08:35] VITALS: BP 126/60; RESP 20
--- NOTE | 2017-06-01 10:39 | DS ---
Date/Time of Note Date/Time of Note DATE: 06/01/17 TIME: 10:38 Discharge Summary Admission/Discharge Info Admit Date/Time May 07, 2017 at 20:57 Discharge Date/Time Discharge Diagnosis 1.anastomotic leak with resultant peritonitis causing sepsis -status post surgical repair. 2. pulmonary fibrosis 3. h/o esophagitis and gastritis 4. colon ca - 5.2 cm low grade moderately differentiated with focal mucinous differentiation. pT3 pN0. s/p laparoscopic right colectomy, April 30, 2017. 5. Anemia: Status post PRBC transfusion earlier this admission Hospital Course 81-year-old female with a history of gastritis, esophagitis, anemia, hemorrhoids , and ascending colon adenocarcinoma status post laparoscopic right colectomy 2 days prior to this admission who presented to the ER with abdominal pain and distention. On presentation to the ER, she was febrile with a temperature of 101. Labs showed a WBC of 20,000. CT abdomen pelvis showed free air in the right abdomen, scattered air in the mesentery adjacent to region of right hemicolectomy surgery, concerning for an anastomotic leak, pulmonary fibrosis at the lung bases with in-stent honeycombing seen at the bilateral posterior costophrenic angles and Gallbladder wall thickening versus pericholecystic fluid. Patient was admitted to ICU. An OG tube is been placed since placement of an NG tube was unsuccessful and also caused bleeding, with 900 cc of gastric contents aspirated through the OG tube. Dr. Sheppard from general surgery was made aware on admission. Patient was taken to the OR and underwent laparoscopic washout and repair of an anastomotic enterotomy. In addition to surgery team, she was also seen by infectious disease team and case management team. Her colostomy bag and drains were monitored by surgery team. She was placed on antibiotics given positive wound culture and urine culture results. Eventually she was able to ambulate with assistance, tolerated p.o. diet. After getting clearance from reimbursement consultant teams, she will be discharged home today improved condition, and go home with home health nursing to help with colostomy bag and drain management. She will follow with surgery and primary care doctor teams in the clinic in the next few days. She will need antibiotics for 5 more days, see below for full list of discharge medication list. Home Meds Active Scripts Metronidazole (Flagyl) 500 Mg Tab, 500 MG PO Q8 for 10 Days, #30 TAB Prov:BRO CHAU MD 05/28/17 Famotidine* (Famotidine*) 20 Mg Tablet, 20 MG PO BID for 30 Days, #60 TAB Prov:BRO CHAU MD 05/26/17 Ferrous Sulfate* (Ferrous Sulfate*) 325 Mg Tabec, 325 MG PO BID for 30 Days, # 60 TAB Prov:BRO CHAU MD 05/26/17 Follow-up Plan If you have any issues/problems with your ostomy or your drains, call Dr Sheppard 's office immediately Si tiene algn problema / problema con siddiqui ostoma o drenajes, llame a la oficina del Dr. Sheppard inmediatamente Follow up with your surgeon, Dr Sheppard within 1 week Moni un seguimiento con siddiqui cirujano, el Dr. Sheppard dentro de 1 semana Address [address] [place] [address] Follow up with your oncologist, Dr Benton, within 2 weeks Address [address] [place] [address] Primary Care Provider [facility]:[address] [place] [address] phone # Time spent on discharge: > 30 minutes SARAH AVILA Jun 01, 2017 10:39
--- NOTE | 2017-06-01 14:08 | PN ---
Date/Time of Note Date/Time of Note DATE: 06/01/17 TIME: 14:06 Assessment/Plan Lines/Catheters IV Catheter Type (from [facility]): Peripheral IV Aguilar in Place (from [facility]): No Assessment/Plan Chief Complaint/Hosp Course 1. Abdominal pain, significant leukocytosis, CT with free air and contrast leak at anastomosis with resultant peritonitis and sepsis; s/p ascending colon adenocarcinoma status post laparoscopic right colectomy 04/30/17; Anastomotic leak mid staple line with open jaymie for about a 3 mm enterotomy with peritonitis and sepsis; Improved. Bowel function. Repeat CT noted. Leukocytosis normalized -po abx per ID (input appreciated) -IS -justin drain care -ambulate/PT -may be discharged per medical team to snf vs. home w for drain care. To follow in office in 1 week. Please have patient record output daily. 2. 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 -onc follow up as outpt 3. Esophagitis: -Diet and lifestyle optimization -Antacids 4. Hemorrhoids -Dietary and lifestyle optimization 5. Gastritis -Diet and lifestyle optimization -h2 antagonist 6. Anemia secondary to above -As above 7. Hx GI bleed, multifactorial, secondary to above. Stable -Monitor -As above 8. Anxiety: trouble with self ostomy care -pt teaching regarding ostomy, have pt perform own ostomy care 9. Small subcapsular rim-enhancing fluid collections overlying the right hepatic lobe: improved per repeat ct Thank you. Patient seen and examined in collaboration with Dr. Jw Sheppard. Problems: Subjective 24 Hr Interval Summary Feels well. Pending discharge today. No fevers, chills, sob, congested cough, cp , palpitations, soto, dizziness, n/v/d/dysuria. Exam/Review of Systems Vital Signs Vitals Vital Signs Date Time Temp Pulse Resp B/P Pulse Ox O2 Delivery O2 Flow Rate FiO2 06/01/17 08:35 97.9 96 20 126/60 96 05/29/17 06:18 Room Air 05/29/17 06:10 2.0 Intake and Output 05/31/17 05/31/17 06/01/17 15:00 23:00 07:00 Intake Total 640 ml 600 ml Output Total 702 ml 3 ml Balance -62 ml 597 ml Exam Free Text/Dictation Constitutional: alert, oriented, Psych: min anxious Head: atraumatic, normocephalic Eyes: EOMI, PERRL, nl conjunctiva, No icteric ENMT: mucosa pink and moist, nl external ears & nose, nl lips & teeth Neck: non-tender, supple, No jvd Respiratory: normal air movement, No congested cough, No labored breathing Cardiovascular: no regular rate and rhythm, No edema Gastrointestinal: non tender epigastric. No erythema/drainage/bruising. Ileostomy pink and moist with gas/stool; midline incision site dry; JPs noted ( both draining serous drainage) Musculoskeletal: nl extremities to inspection, No joint tenderness, Min range of motion. Extremities: normal pulses, No calf tenderness, No cyanosis Neurological: nl mental status, nl speech, nl strength Skin: nl turgor, No diaphoresis, No rash or lesions Lymph: nl lymph nodes GERALDO SILVA NP Jun 01, 2017 14:08
== END 2017-06-01 12:20 | disposition home health service (06) | DRG 329 ==
LOC: E/R 19:25 → ICU 20:57 → MS1 05-10 16:05
PROVIDERS: ADMIT Internal Medicine; ATTEND Internal Medicine
PROC: 0F9040Z Drainage of Liver with Drainage Device, Percutaneous Endoscopic Approach (ICD-10-PCS; 2017-05-08)
PROC: 0DU Gastrointestinal System, Supplement (ICD-10-PCS; principal; 2017-05-08 10:00)
PROC: 30233N1 Transfusion of Nonautologous Red Blood Cells into Peripheral Vein, Percutaneous Approach (ICD-10-PCS; 2017-05-17)
DX: K91.89 Other postprocedural complications and disorders of digestive system (principal); A41.9 Sepsis, unspecified organism; R65.21 Severe sepsis with septic shock; J96.90 Respiratory failure, unspecified, unspecified whether with hypoxia or hypercapnia; K75.0 Abscess of liver; K65.9 Peritonitis, unspecified; C18.2 Malignant neoplasm of ascending colon; E27.8 Other specified disorders of adrenal gland; K56.7 Ileus, unspecified; E87.5 Hyperkalemia; J84.10 Pulmonary fibrosis, unspecified; K20.9 Esophagitis, unspecified; K29.70 Gastritis, unspecified, without bleeding; K64.9 Unspecified hemorrhoids; K82.9 Disease of gallbladder, unspecified; B96.1 Klebsiella pneumoniae [K. pneumoniae] as the cause of diseases classified elsewhere; R19.09 Other intra-abdominal and pelvic swelling, mass and lump; D50.8 Other iron deficiency anemias; Z90.49 Acquired absence of other specified parts of digestive tract
CPT/HCPCS: 36415; 36430; 36600; 71010; 74176; 74177; 80048; 80053; 81003; 82270; 82803; 83540; 83605; 83690; 83735; 84100; 84484; 85014; 85018; 85025; 85610; 85730; 86850; 86900; 86901; 86920; 87040; 87070; 87075; 87081; 87086; 89220; 93005; 94002; 94003; 94640; 94664; 94770; 96374; 96375; 97163; C9113; J0131; J0290; J0696; J1170; J1450; J1885; J2060; J2185; J2250; J2270; J2370; J2405; J2543; J2710; J2916; J3010; J3370; J3480; J7030; J7040; J7042; J7060; J7070; P9016; Q9967

== ENCOUNTER 2017-06-01 18:04 | Emergency (ER) | payer MEDICAID ==
[~2017-06-01] VITALS: Wt 50.0 kg
[~2017-06-01 18:04] MED LIST changes: -AZIT250T94 PO; +FAMO20TA18 PO; +FER325 PO; -HYDR-3498 PO; -HYDR-906 PO; +METR500T14 PO
[2017-06-01] MEDS ORDERED: ONDANSETRON (ODT) 4 MG TAB ODT STA (19:37)
[2017-06-01] MEDS ORDERED: HYDROCODONE/APAP (10/325) TAB PO ONE (20:00)
[2017-06-01 20:48] VITALS: BP 108/72; PULSE 100; RESP 20; TEMP 98.5
--- NOTE | 2017-06-01 22:16 | ERD ---
ER Documentation Chief Complaint Chief Complaint PT HERE FOR COLOSTOMY BAG REPLACEMENT, HOSPITAL D/C TODAY HPI Patient is a 81-year-old female with cancer presents for colostomy bag changing. The patient says "I need my colostomy bag changed". She is also complaining of back pain. She was discharged from the hospital today. She did have surgery she said to remove cancer. ROS All systems reviewed and are negative except as per history of present illness. Medications Home Meds Active Scripts Metronidazole (Flagyl) 500 Mg Tab, 500 MG PO Q8 for 10 Days, #30 TAB Prov:BRO CHAU MD 05/28/17 Famotidine* (Famotidine*) 20 Mg Tablet, 20 MG PO BID for 30 Days, #60 TAB Prov:BRO CHAU MD 05/26/17 Ferrous Sulfate* (Ferrous Sulfate*) 325 Mg Tabec, 325 MG PO BID for 30 Days, # 60 TAB Prov:BRO CHAU MD 05/26/17 Allergies Allergies: Coded Allergies: No Known Allergy (Unverified , 05/07/17) PMhx/Soc History of Surgery: Yes (Lap right colectomy 04/30/17) Anesthesia Reaction: No Hx Neurological Disorder: No Hx Respiratory Disorders: No Hx Cardiac Disorders: No Hx Psychiatric Problems: No Hx Alcohol Use: No Hx Substance Use: No Hx Tobacco Use: No Smoking Status: Never smoker FmHx Family History: No diabetes Physical Exam Vitals Vital Signs Date Time Temp Pulse Resp B/P Pulse Ox O2 Delivery O2 Flow Rate FiO2 06/01/17 20:48 98.5 100 20 108/72 100 Room Air 06/01/17 19:45 98.1 98 17 127/81 100 Room Air 06/01/17 18:07 97.9 67 17 159/79 94 Physical Exam Const: Mild distress secondary to pain Head: Atraumatic Eyes: Normal Conjunctiva ENT: Normal External Ears, Nose and Mouth. Neck: Full range of motion..~ No meningismus. Resp: Clear to auscultation bilaterally Cardio: Regular rate and rhythm, no murmurs Abd: Patient has colostomy which is putting out stool, there is drains in place currently as well Skin: No petechiae or rashes Back: No midline or flank tenderness Ext: No cyanosis, or edema Neur: Awake and alert Psych: Normal Mood and Affect Results 24 hrs Current Medications Medications (Trade) Dose Ordered Sig/Jaylen Route PRN Reason Start Time Stop Time Status Last Admin Dose Admin Acetaminophen/ Hydrocodone Bitart ([place] (10/325)) 1 tab ONCE ONCE PO 06/01/17 20:00 06/01/17 20:01 DC 06/01/17 19:56 Ondansetron HCl (Zofran Odt) 4 mg ONCE STAT ODT 06/01/17 19:37 06/01/17 19:38 DC 06/01/17 19:56 Procedures/MDM Colostomy bag was changed at the bedside. Patient is a 81-year-old female who presents with abdominal pain and back pain. She needs her colostomy bag changed. She was just discharged today from the hospital. I did change her colostomy bag at the bedside. Patient was given [place] and Zofran for symptomatic relief. She feels better. I believe outpatient management is appropriate. The patient will be discharged and can follow-up with her primary doctor within 24-48 hours. She can return sooner for any worsening symptoms. Departure Diagnosis: Primary Impression: Abdominal pain Abdominal location: generalized Qualified Code: R10.84 - Generalized abdominal pain Additional Impression: Colostomy care Condition: Fair Patient Instructions: Abdominal Pain, Colostomy Referrals: Your doctor Additional Instructions: Llame al doctor MAANA y julian angelica ADAM PARA DENTRO DE 1-2 ECHAVARRIA.Dgale a la secretaria que nosotros le instruimos hacer esta adam.Avise o llame si siddiqui condicin se empeora antes de la adam. Regresa aqui si peor o no mejor. GIOVANNY BARBOUR MD Jun 01, 2017 22:16
== END 2017-06-01 21:40 | disposition home or self-care (01) ==
LOC: E/R 18:04
DX: R10.84 Generalized abdominal pain (principal); Z43.3 Encounter for attention to colostomy
CPT/HCPCS: Z7502; Z7610; 99283

== ENCOUNTER 2017-06-02 18:02 | Emergency (ER) | payer MEDICAID ==
[~2017-06-02] VITALS: Wt 68.2 kg
[2017-06-02] MEDS ORDERED: morphine 10 MG INJ IM ONE (22:00)
[2017-06-02 22:50] VITALS: BP 102/66; PULSE 89; RESP 20; TEMP 98.1
--- NOTE | 2017-06-02 23:38 | ERD ---
ER Documentation Chief Complaint Chief Complaint needs replacement colostomy bag HPI 81-year-old female with cancer presents for colostomy bag changing. The patient states her bag was changed yesterday, but she saw some blood in the bag today with her stool. She is complaining of chronic generalized abdominal pain , is not any worse than usual. Today. She is also complaining of back pain. She denies any nausea, vomiting, fevers, chills. ROS All systems reviewed and are negative except as per history of present illness. Medications Home Meds Active Scripts Metronidazole (Flagyl) 500 Mg Tab, 500 MG PO Q8 for 10 Days, #30 TAB Prov:BRO CHAU MD 05/28/17 Famotidine* (Famotidine*) 20 Mg Tablet, 20 MG PO BID for 30 Days, #60 TAB Prov:BRO CHAU MD 05/26/17 Ferrous Sulfate* (Ferrous Sulfate*) 325 Mg Tabec, 325 MG PO BID for 30 Days, # 60 TAB Prov:BRO CHAU MD 05/26/17 Allergies Allergies: Coded Allergies: No Known Allergy (Unverified , 06/02/17) PMhx/Soc History of Surgery: Yes (Lap right colectomy 04/30/17) Anesthesia Reaction: No Hx Neurological Disorder: No Hx Respiratory Disorders: No Hx Cardiac Disorders: No Hx Psychiatric Problems: No Hx Miscellaneous Medical Probl: Yes ([place]) Hx Alcohol Use: No Hx Substance Use: No Hx Tobacco Use: No Smoking Status: Never smoker FmHx Family History: No diabetes Physical Exam Vitals Vital Signs Date Time Temp Pulse Resp B/P Pulse Ox O2 Delivery O2 Flow Rate FiO2 06/02/17 22:50 98.1 89 20 102/66 97 Room Air 06/02/17 18:04 98.0 117 20 95/58 97 Physical Exam Const: Well-appearing, no apparent distress Head: Atraumatic Eyes: Normal Conjunctiva ENT: Normal External Ears, Nose and Mouth. Neck: Full range of motion..~ No meningismus. Resp: Clear to auscultation bilaterally Cardio: Regular rate and rhythm, no murmurs Abd: Colostomy bag noted, leaking contents. Excoriated and irritated skin around the colostomy site. No evidence of infection. No active bleeding. Stoma appears normal. Multiple other drains noted in abdomen. Mild diffuse tenderness to palpation without rebound or guarding. Normal bowel sounds Skin: No petechiae or rashes Back: No midline or flank tenderness Ext: No cyanosis, or edema Neur: Awake and alert Psych: Normal Mood and Affect Results 24 hrs Current Medications Medications (Trade) Dose Ordered Sig/Jaylen Route PRN Reason Start Time Stop Time Status Last Admin Dose Admin Morphine Sulfate (morphine) 6 mg ONCE ONCE IM 06/02/17 22:00 06/02/17 22:01 DC 06/02/17 21:52 Procedures/MDM Patient is presenting with possible blood seen in her colostomy bag today. Her vitals are stable. There is no evidence of blood on my exam today. I suspect the blood she saw was likely secondary to the irritation around her stoma site. I recommended she follow-up with her surgeon to address this issue. At this time I recommended keeping the area dry and avoiding any contact with her clothing that would further irritate her skin. Ostomy bag was changed. Patient was discharged in a stable condition. Return precautions discussed. Departure Diagnosis: Primary Impression: Colostomy care Additional Impression: Chronic generalized abdominal pain Condition: Stable Patient Instructions: Abdominal Pain, Colostomy KEYA AGRAWAL MD Jun 02, 2017 23:38
== END 2017-06-02 22:52 | disposition home or self-care (01) ==
LOC: E/R 18:02
DX: R10.84 Generalized abdominal pain (principal); Z43.3 Encounter for attention to colostomy
CPT/HCPCS: 96372; J2270; Z7502

== ENCOUNTER 2017-06-08 14:19 | Emergency (ER) | payer MEDICAID ==
[~2017-06-08] VITALS: Wt 47.0 kg
--- NOTE | 2017-06-08 17:27 | ERD ---
ER Documentation Chief Complaint Chief Complaint here to have colostomy bag replaced HPI The patient is a 81-year-old female, presenting to the ER because her colostomy bag is leaking. She was here couple days ago for similar symptoms, denies any other symptoms. Past medical history: History of pulmonary fibrosis, history of esophagitis, gastritis, colon cancer Surgical history: Right colectomy, colostomy ROS All systems reviewed and are negative except as per history of present illness. Medications Home Meds Active Scripts Metronidazole (Flagyl) 500 Mg Tab, 500 MG PO Q8 for 10 Days, #30 TAB Prov:BRO CHAU MD 05/28/17 Famotidine* (Famotidine*) 20 Mg Tablet, 20 MG PO BID for 30 Days, #60 TAB Prov:BRO CHAU MD 05/26/17 Ferrous Sulfate* (Ferrous Sulfate*) 325 Mg Tabec, 325 MG PO BID for 30 Days, # 60 TAB Prov:BRO CHAU MD 05/26/17 Allergies Allergies: Coded Allergies: No Known Allergy (Unverified , 06/02/17) PMhx/Soc History of Surgery: Yes (Lap right colectomy 04/30/17) Anesthesia Reaction: No Hx Neurological Disorder: No Hx Respiratory Disorders: No Hx Cardiac Disorders: No Hx Psychiatric Problems: No Hx Miscellaneous Medical Probl: Yes (CA) Hx Alcohol Use: No Hx Substance Use: No Hx Tobacco Use: No Physical Exam Vitals Vital Signs Date Time Temp Pulse Resp B/P Pulse Ox O2 Delivery O2 Flow Rate FiO2 06/08/17 14:54 98.1 108 22 108/62 96 Physical Exam Const: No acute distress. Head: Atraumatic. Eyes: Normal Conjunctiva. ENT: Normal External Ears, Nose and Mouth. Neck: Full range of motion. No meningismus. Resp: Clear to auscultation bilaterally. Cardio: Regular rate and rhythm. Abd: Soft, non distended, normal bowel sounds, non tender. Colostomy Skin: No petechiae or rashes. Back: No midline or flank tenderness. Ext: No cyanosis, or edema. Neur: Awake and alert. No focal deficit Psych: Normal Mood and Affect. Results 24 hrs Current Medications Medications (Trade) Dose Ordered Sig/Jaylen Route PRN Reason Start Time Stop Time Status Last Admin Dose Admin Sodium Chloride (NS) 500 ml @ 500 mls/hr Q1H ONCE IV 06/08/17 18:00 06/08/17 18:59 DC Procedures/MDM MEDICAL MAKING DECISION: The patient is a 81-year-old female, presenting for acute colostomy replacement, slightly dehydration. The colostomy was replaced, she was treated with normal saline 500 ml IV for acute dehydration with good response The differential diagnoses considered include but are not limited to cholelithiasis, cholecystitis, cystitis, pancreatitis, hepatitis, gastritis, peptic ulcer disease, gastric ulcer, appendicitis, diverticulitis, cholangitis, choledocholithiasis, partial small bowel obstruction, ileus. Departure Diagnosis: Primary Impression: Colostomy care Additional Impression: Dehydration Condition: Good Comments I discussed the findings with the patient. I advised the patient to follow-up with the primary physician in about 1-2 days, sooner if needed and return if any concern. Disclaimer: Inadvertent spelling and grammatical errors are likely due to EHR/ dictation software use and do not reflect on the overall quality of patient care. Also, please note that the electronic time recorded on this note does not necessarily reflect the actual time of the patient encounter. DES PAGE MD Jun 08, 2017 17:27
[2017-06-08] MEDS ORDERED: SOD CHLORIDE 0.9% 500 ML IV ONE (18:00)
== END 2017-06-08 20:15 | disposition home or self-care (01) ==
LOC: E/R 14:19
DX: Z43.3 Encounter for attention to colostomy (principal); E86.0 Dehydration; Z85.038 Personal history of other malignant neoplasm of large intestine
CPT/HCPCS: J7040; Z7502; 99282

== ENCOUNTER 2017-06-11 17:11 | Inpatient (IN) | payer MEDICAID ==
[~2017-06-11] VITALS: Ht 157.5 cm; Wt 47.9 kg
[2017-06-12] VITALS (9 sets, daily range): BP systolic 67–121; BP diastolic 45–61; PULSE 85–188; RESP 18; TEMP 97.8; Ht 157.5 cm; Wt 47.9 kg
[2017-06-12] MEDS ORDERED: morphine 4 MG/ML VIAL IV STA (01:42)
[2017-06-12] MEDS ORDERED: SOD CHLORIDE 0.9% 500 ML IV STA (01:42)
[2017-06-12] MEDS ORDERED: ONDANSETRON 4 MG INJ IV STA (01:42)
--- NOTE | 2017-06-12 02:25 | RADRPT ---
PROCEDURE: XR Chest. CLINICAL INDICATION: Abdominal pain TECHNIQUE: AP Portable chest. COMPARISON: CT 05/27/2017; DR CHEST 05/15/2017, 04/20/2017 FINDINGS: The cardiomediastinal silhouette is enlarged. The aorta is calcified and tortuous or ectatic. Coarse interstitial densities and cystic changes are again demonstrated. The costophrenic angles are blun jesus. No pneumothorax is seen. The osseous structures are intact. IMPRESSION: Probable chronic lung disease. Atherosclerotic aorta. No interval change. Physician Alex Date Time Electronically viewed and signed by Florinda Torres Physician on 06/12/2017 02:24 CS/
--- NOTE | 2017-06-12 03:36 | RADRPT ---
PROCEDURE: CT abdomen and pelvis without intravenous contrast. CLINICAL INDICATION: Pain. TECHNIQUE: CT of the abdomen/pelvis was performed utilizing axial images with reconstructions in s agittal and coronal planes. The administered radiation dose is CTDI 4.6 mGy, DLP 260 mGy-cm. One or more of the following dose reduction techniques were used: automated exposure control, adjustment of the mA and/or kV according to patient size and/or use of iterative reconstruction technique. DICOM images are available. COMPARISON: 05/27/2017 FINDINGS: Visualized Chest: Some pulmonary emphysematous changes are present. There is moderate cardiomegaly. Coronary artery calcifications are noted. Abdomen: The liver, spleen, pancreas, and adrenal glands are unremarkable. Stones are noted in the gallblad warren. The gallbladder is contracted. The kidneys are without hydronephrosis. No definite urinary calculi are seen. Prior right hemicolectomy is noted. Some fatty infiltrative changes are noted throughout the omentum in the right abdomen. Right lower quadrant ileostomy is noted. There is no evidence of bowel obstru ction. Some diverticula are noted along the distal descending colon without evidence of diverticulit is. There is no evidence of intra-abdominal adenopathy or free fluid. There has been interval removal o f the previously seen intra-abdominal drainage catheters. Pelvis: Prior hysterectomy is noted. The urinary bladder is unremarkable. There is no pelvic adenopathy of free fluid. Osseous structures: Unremarkable. IMPRESSION: Status post right hemicolectomy and right lower quadrant ileostomy formation without evidence of bow el obstruction. Mild colonic diverticulosis. Nonspecific fat infiltrative changes in the lower half of the right abdomen, presumably resolving po stoperative changes. RPTAT: HIKT .Alvin Durant MD, MD Date Time Electronically viewed and signed by .Alvin Durant MD, on 06/12/2017 03:36 .T/
[2017-06-12 04:18] LABS: ALBUMIN 3.6 g/dl (3.3-4.9); ALBUMIN/GLOBULIN RATIO 0.87; BILIRUBIN,INDIRECT 0.5 mg/dl (0-1.1); BILIRUBIN,TOTAL 0.5 mg/dl (0.2-1.3); CALCIUM 9.6 mg/dl (8.4-10.2); CREATININE 0.88 mg/dl (0.44-1.00); POTASSIUM 5.6 mmol/L (3.5-5.1); TOTAL PROTEIN 7.7 g/dl (6.1-8.1)
[2017-06-12 04:47] LABS: BASOPHIL # 0.1 10^3/ul (0.0-0.1); EOSINOPHILS # 0.1 10^3/ul (0.0-0.5); EOSINOPHILS % 0.7 % (0.0-7.0); HEMATOCRIT 42.3 % (37.0-47.0); HEMOGLOBIN 13.6 g/dl (12.0-16.0); LYMPHOCYTES # 2.1 10^3/ul (0.8-2.9); LYMPHOCYTES % 19.3 % (15.0-51.0); MEAN CORPUSCULAR HEMOGLOBIN 28.8 pg (29.0-33.0); MEAN CORPUSCULAR HGB CONC 32.2 g/dl (32.0-37.0); MEAN CORPUSCULAR VOLUME 89.4 fl (82.0-101.0); MEAN PLATELET VOLUME 8.4 fl (7.4-10.4); MONOCYTE # 0.9 10^3/ul (0.3-0.9); MONOCYTES % 8.2 % (0.0-11.0); NEUTROPHIL # 7.5 10^3/ul (1.6-7.5); NEUTROPHILS % 69.1 % (39.0-77.0); RED BLOOD COUNT 4.73 10^6/ul (4.20-5.40); RED CELL DISTRIBUTION WIDTH 21.4 % (11.5-14.5); WHITE BLOOD COUNT 10.8 10^3/ul (4.8-10.8)
[2017-06-12 04:54] LABS: PLATELET COUNT 237 10^3/UL (140-415); POSITIVE DIFF @See below
[2017-06-12 05:57] LABS: ADD UMIC YES; UR ASCORBIC ACID 40 mg/dL (NEGATIVE); UR BACTERIA FEW /HPF (NONE SEEN); UR BILIRUBIN (Dip) NEGATIVE (NEGATIVE); UR BLOOD (Dip) NEGATIVE (NEGATIVE); UR BUDDING YEAST MODERATE /HPF (NONE SEEN); UR CLARITY CLOUDY (CLEAR); UR COLOR AMBER (YELLOW); UR GLUCOSE (Dip) NEGATIVE (NEGATIVE); UR KETONES (Dip) NEGATIVE (NEGATIVE); UR LEUKOCYTE ESTERASE (Dip) 1+ Leu/ul (NEGATIVE); UR MUCUS FEW /HPF (NONE SEEN); UR NITRITE (Dip) NEGATIVE (NEGATIVE); UR RBC 2 /HPF (0-5); UR SPECIFIC GRAVITY (Dip) 1.027 (1.003-1.030); UR SQUAMOUS EPITHELIAL CELL FEW /HPF (FEW); UR TOTAL PROTEIN (Dip) 1+ mg/dl (NEGATIVE); UR UROBILINOGEN (Dip) NEGATIVE (NEGATIVE)
--- NOTE | 2017-06-12 07:55 | ERD ---
ER Documentation Chief Complaint Chief Complaint Sent from for eval abnormal labs HPI This 81-year-old female presents emergency room not being able to urinate for the past 8 days as well as having lower abdominal pain, generalized weakness, nausea and poor p.o. intake. Had chills but no fevers. Denies chest pain or shortness of breath. ROS All systems reviewed and are negative except as per history of present illness. Medications Home Meds Active Scripts Metronidazole (Flagyl) 500 Mg Tab, 500 MG PO Q8 for 10 Days, #30 TAB Prov:BRO CHAU MD 05/28/17 Famotidine* (Famotidine*) 20 Mg Tablet, 20 MG PO BID for 30 Days, #60 TAB Prov:BRO CHAU MD 05/26/17 Ferrous Sulfate* (Ferrous Sulfate*) 325 Mg Tabec, 325 MG PO BID for 30 Days, # 60 TAB Prov:BRO CHAU MD 05/26/17 Allergies Allergies: Coded Allergies: No Known Allergy (Unverified , 06/02/17) PMhx/Soc History of Surgery: Yes (Lap right colectomy 04/30/17) Anesthesia Reaction: No Hx Neurological Disorder: No Hx Respiratory Disorders: No Hx Cardiac Disorders: No Hx Psychiatric Problems: No Hx Miscellaneous Medical Probl: Yes (Colon [place]) Hx Alcohol Use: No Hx Substance Use: No Hx Tobacco Use: No Smoking Status: Never smoker Physical Exam Vitals Vital Signs Date Time Temp Pulse Resp B/P Pulse Ox O2 Delivery O2 Flow Rate FiO2 06/12/17 06:12 79 16 128/58 100 Room Air 06/12/17 04:59 97.8 84 21 140/74 96 Room Air 06/12/17 04:59 Nasal Cannula 1 06/12/17 01:38 92 22 139/89 100 Room Air 06/11/17 21:25 97.8 105 16 98/59 97 Room Air 06/11/17 17:15 97.3 102 20 116/69 98 Physical Exam Const: [] To moderate distress, appears uncomfortable Head: Atraumatic Eyes: Normal Conjunctiva ENT: Normal External Ears, Nose and Mouth. Dry mucous membranes of the mouth Neck: Full range of motion..~ No meningismus. Resp: Clear to auscultation bilaterally Cardio: Regular rate and rhythm, no murmurs Abd: Soft, lower abdominal tenderness without guarding or rebound r, non distended. Normal bowel sounds Skin: No petechiae or rashes poor skin turgor Back: No midline or flank tenderness Ext: No cyanosis, or edema distal pulses intact all 4 extremities Neur: Awake and alert and oriented 3, no focal deficits. Psych: Normal Mood and Affect Result Diagram: 06/12/17 0340 06/12/17 0340 Results 24 hrs Laboratory Tests Test 06/12/17 03:40 06/12/17 04:45 White Blood Count 10.810^3/ul Red Blood Count 4.7310^6/ul Hemoglobin 13.6g/dl Hematocrit 42.3% Mean Corpuscular Volume 89.4fl Mean Corpuscular Hemoglobin 28.8pg Mean Corpuscular Hemoglobin Concent 32.2g/dl Red Cell Distribution Width 21.4% Platelet Count 41197^3/UL Mean Platelet Volume 8.4fl Neutrophils % 69.1% Lymphocytes % 19.3% Monocytes % 8.2% Eosinophils % 0.7% Basophils % 1.0% Nucleated Red Blood Cells % 0.0/100WBC Neutrophils # 7.510^3/ul Lymphocytes # 2.110^3/ul Monocytes # 0.910^3/ul Eosinophils # 0.110^3/ul Basophils # 0.110^3/ul Nucleated Red Blood Cells # 0.010^3/ul Sodium Level 132mmol/L Potassium Level 5.6mmol/L Chloride Level 100mmol/L Carbon Dioxide Level 20mmol/L Anion Gap 18 Blood Urea Nitrogen 40mg/dl Creatinine 0.88mg/dl Glucose Level 114mg/dl Calcium Level 9.6mg/dl Total Bilirubin 0.5mg/dl Direct Bilirubin 0.00mg/dl Indirect Bilirubin 0.5mg/dl Aspartate Amino Transf (AST/SGOT) 26IU/L Alanine Aminotransferase (ALT/SGPT) 28IU/L Alkaline Phosphatase 119IU/L Troponin I < 0.012ng/ml B-Type Natriuretic Peptide 228PG/ML Total Protein 7.7g/dl Albumin 3.6g/dl Globulin 4.10g/dl Albumin/Globulin Ratio 0.87 Lipase 832U/L Urine Color RAJESH Urine Clarity CLOUDY Urine pH 6.0 Urine Specific [place] 1.027 Urine Ketones NEGATIVEmg/dL Urine Nitrite NEGATIVEmg/dL Urine Bilirubin NEGATIVEmg/dL Urine Urobilinogen NEGATIVEmg/dL Urine Leukocyte Esterase 1+Missy/ul Urine Microscopic RBC 2/HPF Urine Microscopic WBC 23/HPF Urine Squamous Epithelial Cells FEW/HPF Urine Bacteria FEW/HPF Urine Mucus FEW/HPF Urine Yeast (Budding) MODERATE/HPF Urine Hemoglobin NEGATIVEmg/dL Urine Glucose NEGATIVEmg/dL Urine Total Protein 1+mg/dl Current Medications Medications (Trade) Dose Ordered Sig/Jaylen Route PRN Reason Start Time Stop Time Status Last Admin Dose Admin Sodium Chloride (NS) 500 ml @ 500 mls/hr Q1H STAT IV 06/12/17 01:42 06/12/17 02:41 DC 06/12/17 01:42 Morphine Sulfate (morphine) 4 mg ONCE STAT IV 06/12/17 01:42 06/12/17 01:44 DC 06/12/17 04:07 Ondansetron HCl (Zofran Inj) 4 mg ONCE STAT IV 06/12/17 01:42 06/12/17 01:44 DC 06/12/17 04:06 Procedures/MDM Elderly female with UTI causing difficulty urination, dehydration, generalized weakness. Also has hyponatremia and hyperkalemia. Hydrated with normal saline in the emergency room. UTI would be community-acquired. Given a gram of Rocephin urine culture was obtained. Was given 4 mg of morphine as well as Zofran which resolved her nausea and helped her pain. She did have return of pain and required another dose of morphine. Straight cath was required to obtain urine. She is being admitted to the hospitalist Rizwan Harper for further workup and management. EKG interpretation: Normal sinus rhythm rate of 91, left axis deviation, no ST or T-wave changes concerning for acute ischemia, nonspecific ST abnormality. More intervals. Abnormal EKG biomedical engineering director interpretation: Normal sinus rhythm without arrhythmia CT abdomen pelvis interpretation: I see no acute process. I see no bowel obstruction, no free air or evidence of perforation, no fractures. Chest x-ray interpretation: I see no acute process. No pulmonary edema, no infiltrate, no widened mediastinum, no fractures Departure Diagnosis: Primary Impression: Complicated UTI (urinary tract infection) Additional Impressions: Dehydration Hyperkalemia Hyponatremia Generalized weakness GLORIA KELLY DO Jun 12, 2017 07:55
[2017-06-12] MEDS ORDERED: CEFTRIAXONE 1 GM/50 ML (PMX) 50 ML IVPB ONE (08:00)
[2017-06-12] MEDS ORDERED: ACETAMINOPHEN 325 MG TAB PO PRN ×2 (08:00→09:00)
[2017-06-12] MEDS ORDERED: ONDANSETRON 4 MG INJ IV PRN ×2 (08:00→09:00)
[2017-06-12] MEDS ORDERED: ONDANSETRON 4 MG TAB PO PRN (09:00)
[2017-06-12] MEDS ORDERED: BISACODYL (EC) 5 MG TAB PO PRN (09:00)
[2017-06-12] MEDS ORDERED: DOCUSATE SODIUM 100 MG CAP PO PRN (09:00)
[2017-06-12] MEDS ORDERED: MAGNESIUM HYDROXIDE 30ML CUP PO PRN (09:00)
[2017-06-12] MEDS ORDERED: NACL 0.9% 3 ML SYG IV SCH (09:00)
[2017-06-12] MEDS: FERROUS SULFATE (EC) 325 MG TAB PO SCH ×2 (09:00→21:08)
[2017-06-12] MEDS ORDERED: FAMOTIDINE 20 MG TAB PO SCH (09:00)
[2017-06-12] MEDS ORDERED: HYDROCODONE/APAP (5/325) TAB PO PRN (09:00)
[2017-06-12] MEDS: ENOXAPARIN 40 MG/0.4 ML SYG SC SCH (10:17)
--- NOTE | 2017-06-12 16:05 | HP ---
Date/Time of Note Date/Time of Note DATE: 06/12/17 TIME: 15:53 Assessment/Plan VTE Prophylaxis VTE Prophylaxis Intervention: SCD's, other Lines/Catheters IV Catheter Type (from Nrsg): Peripheral IV Assessment/Plan Assessment/Plan 81 yo F well known to me with recent diagnosis colon ca sp resection with anastomosis cb anastomosis leak with intraabd infection warranting ostomy and abd drain placement here with feeling unwell for the past few days. Labs here suggestive of cystitis. No intraabd processes on CT. Labs also notable for mild hyperkalemia and hyponatremia #UTI? -empiric rocephin -await urine culture data #electrolyte derangement serum and urine osms, urine lytes hold h2b given hyponatremia #elevated lipase: etio unclear #TOBI: cont home iron #?GERD: cont home h2b #recent abd surgery: sp abx HPI/ROS Admit Date/Time Admit Date/Time Jun 12, 2017 at 07:52 Hx of Present Illness CC felt unwell language line used to facilitate communication HPI 81 yo F well known to me with recent diagnosis colon ca sp resection with anastomosis cb anastomosis leak with intraabd infection warranting ostomy and abd drain placement here with feeling unwell for the past few days. Pt discharged ~12 days ago. Has been feeling week. Abd drain pulled 9 days ago by general surgeon. Went to PCP yesterday, Cr 1.3 and K 6.1. PCP advised pt present to the ER for further management. Pt does not freely report fevers, chills, chest pain, SOB. Reports feeling all over weak and fatigued and reports it's been tough because she is home alone so much PMH/Family/Social Past Medical History as per HPI Social History lives in the community Smoking Status: Never smoker Exam/Review of Systems Vital Signs Vitals Vital Signs Date Time Temp Pulse Resp B/P Pulse Ox O2 Delivery O2 Flow Rate FiO2 06/12/17 12:44 70 17 115/70 100 Room Air 06/12/17 04:59 97.8 06/12/17 04:59 1 Exam Exam fatigued, laying in bed EOMI responds to questions appropriately in [place] no mrg lungs clear abd with 2 dressings and ostomy no rashes no edema labs reviewed. Cr and K both better than at PCP's office yesterday. UA with LE and WBCs. Na a little low. Lipase a little high. CT without abscess or SBO Labs Result Diagram: 06/12/17 0340 06/12/17 0340 Medications Medications Current Medications Ondansetron HCl (Zofran Tab) 4 mg Q6H PRN PO NAUSEA AND/OR VOMITING; Start at 09:00 Ondansetron HCl (Zofran Inj) 4 mg Q6H PRN IV NAUSEA AND/OR VOMITING; Start at 09:00 Acetaminophen (Tylenol Tab) 650 mg Q6H PRN PO PAIN LEVEL 1-3 OR FEVER; Start 06/12/17 at 09:00 Acetaminophen/ Hydrocodone Bitart ([place] (5/325)) 1 tab Q6H PRN PO MODERATE PAIN LEVEL 4-6; Start 06/12/17 at 09:00 Docusate Sodium (Colace) 100 mg Q12H PRN PO CONSTIPATION; Start 06/12/17 at 09 :00 Magnesium Hydroxide (Milk Of Mag) 30 ml DAILY PRN PO CONSTIPATION; Start 06/12 at 09:00 Bisacodyl (Dulcolax) 5 mg DAILY PRN PO CONSTIPATION; Start 06/12/17 at 09:00 Enoxaparin Sodium (Lovenox) 40 mg DAILY SC Last administered on 06/12/17 10: 17; Admin Dose 40 MG; Start 06/12/17 at 09:00 Famotidine (Pepcid) 20 mg BID PO Last administered on 06/12/17 10:17; Admin Dose 20 MG; Start 06/12/17 at 09:00 Ferrous Sulfate (Ferrous Sulfate (Ec)) 325 mg BID PO ; Start 06/12/17 at 09:00 BRO CHAU MD Jun 12, 2017 16:04
[2017-06-12 18:29] LABS: THYROID STIMULATING HORMONE 1.76 MIU/L (0.465-4.680)
[2017-06-12] MEDS ORDERED: SOD CHLORIDE 0.9% 500 ML IV ONE (19:30)
--- NOTE | 2017-06-12 20:22 | EN ---
Date/Time of Note Date/Time of Note DATE: 06/12/17 TIME: 20:21 Event Note Medicine Medicine Event Note Was called to the room to assess the patient for SVT and hypotension. Patient seen and examined at the bed. She denies any palpitations or chest pain. BP 83/ 54. She was already started on a 500cc bolus of normal saline which finished during my encounter. Her BP did not not improve with the fluids and she remained in SVT in the 180s. Decision was made to give her Adenosine 6mg IV x1. This resulted in subsequent improvement in her HR and she converted to Sinus rhythm 89bpm and Blood pressure of 98/54. Vitals: As stated above. HEENT: nc/at CVS: tachycardia lungs: clear to auscultation bilaterally. Neuro: a&0x3 EKG #1: SVT at 183 bpm EKG #2: Normal sinus rhythm at 89bpm, no ST or T wave abnormalities A/p: #1SVT: no improvement despite completion of 500cc bolus. Adenosine 6mg IV x 1 given. Improvement of HR and BP. STAT CBC, CMP, Lactate. Transfer to Tele. #2 UTI: on abx. #3 Elevated lipase: will recheck a lipase. JANIS GILES Jun 12, 2017 20:22
[2017-06-12 21:27] LABS: BASOPHIL # 0.1 10^3/ul (0.0-0.1); BASOPHILS % 1.1 % (0.0-2.0); EOSINOPHILS % 0.3 % (0.0-7.0); HEMATOCRIT 40.7 % (37.0-47.0); HEMOGLOBIN 12.6 g/dl (12.0-16.0); LYMPHOCYTES # 1.9 10^3/ul (0.8-2.9); LYMPHOCYTES % 17.5 % (15.0-51.0); MEAN CORPUSCULAR HEMOGLOBIN 28.6 pg (29.0-33.0); MEAN CORPUSCULAR VOLUME 92.3 fl (82.0-101.0); MEAN PLATELET VOLUME 8.3 fl (7.4-10.4); MONOCYTE # 0.9 10^3/ul (0.3-0.9); NEUTROPHIL # 7.6 10^3/ul (1.6-7.5); NEUTROPHILS % 70.9 % (39.0-77.0); NUCLEATED RED BLOOD CELLS% 0.2 /100WBC (0.0-0.0); PLATELET COUNT 233 10^3/UL (140-415); RED BLOOD COUNT 4.41 10^6/ul (4.20-5.40); RED CELL DISTRIBUTION WIDTH 21.5 % (11.5-14.5); WHITE BLOOD COUNT 10.7 10^3/ul (4.8-10.8)
[2017-06-12 21:49] LABS: ALANINE AMINOTRANSFERASE 30 IU/L (13-69); ALBUMIN 2.9 g/dl (3.3-4.9); ALBUMIN/GLOBULIN RATIO 0.85; ALKALINE PHOSPHATASE 88 IU/L (42-121); ANION GAP 14 (8-16); ASPARTATE AMINO TRANSFERASE 28 IU/L (15-46); BILIRUBIN,INDIRECT 0.2 mg/dl (0-1.1); BILIRUBIN,TOTAL 0.2 mg/dl (0.2-1.3); BLOOD UREA NITROGEN 27 mg/dl (7-20); CALCIUM 8.3 mg/dl (8.4-10.2); CARBON DIOXIDE 17 mmol/L (21-31); CHLORIDE 106 mmol/L (97-110); CREATININE 0.85 mg/dl (0.44-1.00); GLUCOSE 94 mg/dl (70-220); POTASSIUM 4.7 mmol/L (3.5-5.1); SODIUM 132 mmol/L (135-144); TOTAL PROTEIN 6.3 g/dl (6.1-8.1)
[2017-06-12 21:56] LABS: CREATINE KINASE < 20 IU/L (23-200)
[2017-06-12 22:00] LABS: CK-MB 0.75 ng/ml (0.0-2.4); TROPONIN-I 0.081 ng/ml (0.00-0.12)
[2017-06-12] MEDS ORDERED: DILTIAZEM 25 MG INJ IV ONE (23:00)
[2017-06-12] MEDS ORDERED: morphine 2 MG INJ IV ONE (23:09)
[2017-06-12] MEDS: SOD CHLORIDE 0.9% 1,000 ML IV SCH (23:45)
[2017-06-13] VITALS (11 sets, daily range): BP systolic 84–107; BP diastolic 49–59; PULSE 69–85; RESP 18
[2017-06-13] MEDS ORDERED: LORAZEPAM 0.5 MG TAB PO ONE
[2017-06-13 03:17] LABS: CREATINE KINASE < 20 IU/L (23-200)
[2017-06-13 03:27] LABS: CK-MB 1.36 ng/ml (0.0-2.4)
[2017-06-13 06:45] LABS: BASOPHIL # 0.1 10^3/ul (0.0-0.1); EOSINOPHILS # 0.1 10^3/ul (0.0-0.5); EOSINOPHILS % 1.2 % (0.0-7.0); HEMOGLOBIN 10.7 g/dl (12.0-16.0); LYMPHOCYTES # 2.1 10^3/ul (0.8-2.9); LYMPHOCYTES % 25.2 % (15.0-51.0); MEAN CORPUSCULAR HEMOGLOBIN 28.9 pg (29.0-33.0); MEAN CORPUSCULAR HGB CONC 32.4 g/dl (32.0-37.0); MEAN CORPUSCULAR VOLUME 89.2 fl (82.0-101.0); MEAN PLATELET VOLUME 8.6 fl (7.4-10.4); MONOCYTE # 0.8 10^3/ul (0.3-0.9); MONOCYTES % 9.6 % (0.0-11.0); NEUTROPHIL # 5.1 10^3/ul (1.6-7.5); NEUTROPHILS % 61.4 % (39.0-77.0); PLATELET COUNT 233 10^3/UL (140-415); RED CELL DISTRIBUTION WIDTH 21.2 % (11.5-14.5); WHITE BLOOD COUNT 8.3 10^3/ul (4.8-10.8)
[2017-06-13 07:09] LABS: ALBUMIN 2.3 g/dl (3.3-4.9); ALBUMIN/GLOBULIN RATIO 0.71; BILIRUBIN,INDIRECT 0.5 mg/dl (0-1.1); BILIRUBIN,TOTAL 0.5 mg/dl (0.2-1.3); CALCIUM 8.4 mg/dl (8.4-10.2); CREATININE 0.71 mg/dl (0.44-1.00); POTASSIUM 5.2 mmol/L (3.5-5.1); TOTAL PROTEIN 5.5 g/dl (6.1-8.1)
[2017-06-13 09:40] LABS: CREATINE KINASE < 20 IU/L (23-200)
[2017-06-13] MEDS: FERROUS SULFATE (EC) 325 MG TAB PO SCH ×2 (09:40→21:10)
[2017-06-13] MEDS: SOD CHLORIDE 0.9% 1,000 ML IV SCH (09:40)
[2017-06-13 09:54] LABS: TROPONIN-I 0.116 ng/ml (0.00-0.12)
[2017-06-13] MEDS: ENOXAPARIN 40 MG/0.4 ML SYG SC SCH (10:56)
--- NOTE | 2017-06-13 16:17 | PN ---
Date/Time of Note Date/Time of Note DATE: 06/13/17 TIME: 16:17 Assessment/Plan VTE Prophylaxis VTE Prophylaxis Intervention: SCD's Lines/Catheters IV Catheter Type (from Nrsg): Peripheral IV Assessment/Plan Assessment/Plan 81 yo F well known to me with recent diagnosis colon ca sp resection with anastomosis cb anastomosis leak with intraabd infection warranting ostomy and abd drain placement here with feeling unwell for the past few days. Labs here suggestive of cystitis. No intraabd processes on CT. Labs also notable for mild hyperkalemia and hyponatremia. 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 #SVT/pAF: small trop leak likely 2/2 demand cardiology to see (contacted by technology professional) TTE pending start daily asa 325. [id number] score 3, suggests full ATC might be advised though await cardiology eval HR <100. no compelling indication to start bb #UTI? -empiric rocephin-->await urine culture data #proteinuria: check urine p/c #electrolyte derangement serum osms slightly high, suggestive of hypertonic hyponatremia. however BG not markedly elevated. urine sodium pending. hold h2b given hyponatremia. hold FW no compelling indication to initiate K lowering therapy if K<5.5 #elevated lipase: etio unclear. repeat #TOBI: cont home iron #?GERD: holding home h2b #recent abd surgery: sp abx Subjective 24 Hr Interval Summary Free Text/Dictation Since going into SVT/pAF last night, pt has remained in SR. Wondering if she can be transferred from to 5w 2/2 claustrophobia Exam/Review of Systems Vital Signs Vitals Vital Signs Date Time Temp Pulse Resp B/P Pulse Ox O2 Delivery O2 Flow Rate FiO2 06/13/17 12:59 97.8 84 18 84/49 96 06/12/17 20:57 Room Air 06/12/17 04:59 1 Intake and Output 06/12/17 06/12/17 06/13/17 15:00 23:00 07:00 Intake Total 800 ml Balance 800 ml Results Result Diagram: 06/13/17 0617 06/13/17 0617 Results 24 hrs Laboratory Tests Test 06/12/17 16:54 06/12/17 21:09 06/13/17 02:42 06/13/17 06:17 Osmolality 301 H Thyroid Stimulating Hormone (TSH) 1.760 Random Cortisol 2.3 White Blood Count 10.7 8.3 # Red Blood Count 4.41 3.70 L Hemoglobin 12.6 10.7 L Hematocrit 40.7 33.0 L Mean Corpuscular Volume 92.3 89.2 Mean Corpuscular Hemoglobin 28.6 L 28.9 L Mean Corpuscular Hemoglobin Concent 31.0 L 32.4 Red Cell Distribution Width 21.5 H 21.2 H Platelet Count 233 233 Mean Platelet Volume 8.3 8.6 Neutrophils % 70.9 61.4 Lymphocytes % 17.5 25.2 Monocytes % 8.0 9.6 Eosinophils % 0.3 1.2 Basophils % 1.1 1.0 Nucleated Red Blood Cells % 0.2 H 0.0 Neutrophils # 7.6 H 5.1 Lymphocytes # 1.9 2.1 Monocytes # 0.9 0.8 Eosinophils # 0.0 0.1 Basophils # 0.1 0.1 Nucleated Red Blood Cells # 0.0 0.0 Sodium Level 132 L 133 L Potassium Level 4.7 5.2 H Chloride Level 106 107 Carbon Dioxide Level 17 L 22 Anion Gap 14 9 # Blood Urea Nitrogen 27 #H 19 Creatinine 0.85 0.71 Glucose Level 94 88 Lactic Acid Level 2.0 Calcium Level 8.3 L 8.4 Total Bilirubin 0.2 0.5 Direct Bilirubin 0.00 0.00 Indirect Bilirubin 0.2 0.5 Aspartate Amino Transf (AST/SGOT) 28 22 Alanine Aminotransferase (ALT/SGPT) 30 29 Alkaline Phosphatase 88 65 Creatine Kinase < 20 L < 20 L Creatine Kinase Index Creatinine Kinase MB (Mass) 0.75 1.36 Troponin I 0.081 0.160 *H Total Protein 6.3 # 5.5 L Albumin 2.9 L 2.3 L Globulin 3.40 H 3.20 Albumin/Globulin Ratio 0.85 0.71 Lipase 578 H Test 06/13/17 09:03 Creatine Kinase < 20 L Creatine Kinase Index Creatinine Kinase MB (Mass) 1.60 Troponin I 0.116 Medications Medications Current Medications Ondansetron HCl (Zofran Tab) 4 mg Q6H PRN PO NAUSEA AND/OR VOMITING; Start at 09:00 Ondansetron HCl (Zofran Inj) 4 mg Q6H PRN IV NAUSEA AND/OR VOMITING; Start at 09:00 Acetaminophen (Tylenol Tab) 650 mg Q6H PRN PO PAIN LEVEL 1-3 OR FEVER; Start 06/12/17 at 09:00 Acetaminophen/ Hydrocodone Bitart ([place] (5/325)) 1 tab Q6H PRN PO MODERATE PAIN LEVEL 4-6; Start 06/12/17 at 09:00 Docusate Sodium (Colace) 100 mg Q12H PRN PO CONSTIPATION; Start 06/12/17 at 09 :00 Magnesium Hydroxide (Milk Of Mag) 30 ml DAILY PRN PO CONSTIPATION; Start 06/12 at 09:00 Bisacodyl (Dulcolax) 5 mg DAILY PRN PO CONSTIPATION; Start 06/12/17 at 09:00 Enoxaparin Sodium (Lovenox) 40 mg DAILY SC Last administered on 06/13/17 10: 56; Admin Dose 40 MG; Start 06/12/17 at 09:00 Ferrous Sulfate 325 mg 325 mg BID PO Last administered on 06/13/17 09:40; Admin Dose 325 MG; Start 06/12/17 at 09:00 Sodium Chloride (NS) 1,000 ml @ 100 mls/hr Q10H IV Last administered on 09:40; Admin Dose 100 MLS/HR; Start 06/12/17 at 23:30 BRO CHAU MD Jun 13, 2017 16:17
--- NOTE | 2017-06-13 18:34 | CONS ---
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 Stress test to follow given + trops with SVT. Full note dictated # [id number] Consultation Date/Type/Reason Admit Date/Time Jun 12, 2017 at 07:52 Initial Consult Date Exam/Review of Systems Vital Signs Vitals Vital Signs Date Time Temp Pulse Resp B/P Pulse Ox O2 Delivery O2 Flow Rate FiO2 06/13/17 16:28 98.0 67 18 105/59 91 06/12/17 20:57 Room Air 06/12/17 04:59 1 Intake and Output 06/12/17 06/12/17 06/13/17 15:00 23:00 07:00 Intake Total 800 ml Balance 800 ml Results Result Diagram: 06/13/1717 06/13/1717 Results 24 hrs Laboratory Tests Test 06/12/17 21:09 06/13/17 02:42 06/13/17 06:17 06/13/17 09:00 White Blood Count 10.7 8.3 # Red Blood Count 4.41 3.70 L Hemoglobin 12.6 10.7 L Hematocrit 40.7 33.0 L Mean Corpuscular Volume 92.3 89.2 Mean Corpuscular Hemoglobin 28.6 L 28.9 L Mean Corpuscular Hemoglobin Concent 31.0 L 32.4 Red Cell Distribution Width 21.5 H 21.2 H Platelet Count 233 233 Mean Platelet Volume 8.3 8.6 Neutrophils % 70.9 61.4 Lymphocytes % 17.5 25.2 Monocytes % 8.0 9.6 Eosinophils % 0.3 1.2 Basophils % 1.1 1.0 Nucleated Red Blood Cells % 0.2 H 0.0 Neutrophils # 7.6 H 5.1 Lymphocytes # 1.9 2.1 Monocytes # 0.9 0.8 Eosinophils # 0.0 0.1 Basophils # 0.1 0.1 Nucleated Red Blood Cells # 0.0 0.0 Sodium Level 132 L 133 L Potassium Level 4.7 5.2 H Chloride Level 106 107 Carbon Dioxide Level 17 L 22 Anion Gap 14 9 # Blood Urea Nitrogen 27 #H 19 Creatinine 0.85 0.71 Glucose Level 94 88 Lactic Acid Level 2.0 Calcium Level 8.3 L 8.4 Total Bilirubin 0.2 0.5 Direct Bilirubin 0.00 0.00 Indirect Bilirubin 0.2 0.5 Aspartate Amino Transf (AST/SGOT) 28 22 Alanine Aminotransferase (ALT/SGPT) 30 29 Alkaline Phosphatase 88 65 Creatine Kinase < 20 L < 20 L Creatine Kinase Index Creatinine Kinase MB (Mass) 0.75 1.36 Troponin I 0.081 0.160 *H Total Protein 6.3 # 5.5 L Albumin 2.9 L 2.3 L Globulin 3.40 H 3.20 Albumin/Globulin Ratio 0.85 0.71 Lipase 578 H 293 Test 06/13/17 09:03 Creatine Kinase < 20 L Creatine Kinase Index Creatinine Kinase MB (Mass) 1.60 Troponin I 0.116 Medications Medications Current Medications Ondansetron HCl (Zofran Tab) 4 mg Q6H PRN PO NAUSEA AND/OR VOMITING; Start at 09:00 Ondansetron HCl (Zofran Inj) 4 mg Q6H PRN IV NAUSEA AND/OR VOMITING; Start at 09:00 Acetaminophen (Tylenol Tab) 650 mg Q6H PRN PO PAIN LEVEL 1-3 OR FEVER; Start 06/12/17 at 09:00 Acetaminophen/ Hydrocodone Bitart ([place] (5/325)) 1 tab Q6H PRN PO MODERATE PAIN LEVEL 4-6; Start 06/12/17 at 09:00 Docusate Sodium (Colace) 100 mg Q12H PRN PO CONSTIPATION; Start 06/12/17 at 09 :00 Magnesium Hydroxide (Milk Of Mag) 30 ml DAILY PRN PO CONSTIPATION; Start 06/12 at 09:00 Bisacodyl (Dulcolax) 5 mg DAILY PRN PO CONSTIPATION; Start 06/12/17 at 09:00 Enoxaparin Sodium (Lovenox) 40 mg DAILY SC Last administered on 06/13/17 10: 56; Admin Dose 40 MG; Start 06/12/17 at 09:00 Ferrous Sulfate (Ferrous Sulfate (Ec)) 325 mg BID PO Last administered on 06/13 09:40; Admin Dose 325 MG; Start 06/12/17 at 09:00 Aspirin (Aspirin) 325 mg DAILY PO ; Start 06/14/17 at 09:00 RADHA NOBLE MD Jun 13, 2017 18:34
[2017-06-14] VITALS (11 sets, daily range): BP systolic 80–104; BP diastolic 51–55; PULSE 63–80; RESP 18–20
[2017-06-14] MEDS ORDERED: DILTIAZEM 25 MG INJ IV ONE (02:30)
--- NOTE | 2017-06-14 06:30 | CONS ---
DATE OF ADMISSION: 06/12/2017 DATE OF CONSULTATION: 06/13/2017 TYPE OF CONSULTATION: Cardiology. REFERRING PHYSICIAN: Dr. Harper. REASON FOR EVALUATION: Supraventricular tachycardia. HISTORY OF PRESENT ILLNESS: Ms. Galvan is a 81-year-old woman with history of borderline hypertens ion, history of colon cancer, status post resection anastomosis and intraabdominal leak prior, who c omes to the hospital for evaluation of abdominal discomfort. In the setting of this event, the kathi ent had an episode of supraventricular tachycardia and I have been asked to see the patient in consu ltation for further cardiac evaluation. I reviewed the rhythm strips the patient was in supra ventricular tachycardia which broke with adenosine. 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 At this point, the patient is in sinu s rhythm at the moment. For now, conservative therapy expected. We will obtain a 2D echo to establ cristel ejection fraction. The patient ought to be on a small dose of beta aly as well as aspirin a s tolerated. PAST MEDICAL HISTORY: History of colon cancer with resection, history of electrolyte abnormality, h istory of borderline hypertension, history of GERD. ALLERGIES: NO KNOWN DRUG ALLERGIES. SOCIAL HISTORY: The patient does not smoke, does not drink, does not use drugs. FAMILY HISTORY: Negative for sudden cardiac or premature coronary artery disease. MEDICATIONS: The patient is on aspirin 325 , magnesium hydroxide, subcutaneous Lovenox for DVT prophylaxis. REVIEW OF SYSTEMS: CONSTITUTIONAL: No fevers, no chills, no recent weight change. HEENT: No changes in vision or hearing. CARDIAC: No chest pain reported now. RESPIRATORY: of breath GASTROINTESTINAL: No nausea, vomiting, diarrhea, constipation. GENITOURINARY: No dysuria, hematuria . NEUROLOGIC: No focal neurologic deficits. PSYCHIATRIC: No history of psychiatric illness. PHYSICAL EXAMINATION: VITAL SIGNS: Temperature is 98.0, heart rate 67, blood pressure 105/59. GENERAL: She is a thin woman in no acute distress, alert and oriented x3, speaking fluent Albanian. HEAD: Normocephalic, atraumatic. Eyes anicteric. NECK: Supple. JVD 6-7 cm. There is no lymphadenopathy or thyromegaly. HEART: Regular with soft holosystolic murmur at the apex. PMI is nondisplaced. I do not hear an S 3. LUNGS: Coarse at bases. ABDOMEN: Distended, bowel sounds are present. There is no hepatosplenomegaly. EXTREMITIES: No clubbing, cyanosis or edema. LABORATORY DATA: White blood cell count is 8.3, hemoglobin is 10.7, platelets 233. INR is 1.36. S odium 133, potassium 5.2. Her troponin was on admission, now down to . ASSESSMENT AND PLAN: 1. Tachycardia. Patient is tachycardic, appears to be sinus tachycardia in nature. The patient's tachycardia appears to be of supraventricular tachycardia in nature, most consistent with atrioventr icular hedy reentry tachycardia versus atrial tachycardia which terminated with a pause on adenosin e for now. Conservative therapy is expected. We will add a beta aly and aspirin and follow exp ectantly. 2. Elevated troponins. The patient has elevated troponins in the setting of tachycardia. We will consider further risk stratification, will facilitate a stress test for tomorrow. 3. Electrolyte abnormality. Potassium was high at 5.2, continue to adjust therapy as needed and co nsider gentle diuresis if necessary. 4. Colon cancer. The patient with history of colon cancer, defer to primary team for evaluation. 5. History of anemia. Hemoglobin is fairly stable, no active bleeding now. I would like to thank Dr. Harper for referring this patient for my evaluation. Dictated By: RADHA NOBLE MD ML/NTS Conf#: [id number] DID#: [id number] CC: Kathleen Harper;*EndCC*
[2017-06-14] MEDS ORDERED: ASPIRIN (EC) 81 MG TAB PO SCH (09:00)
[2017-06-14] MEDS: ENOXAPARIN 40 MG/0.4 ML SYG SC SCH (09:00)
[2017-06-14] MEDS: FERROUS SULFATE (EC) 325 MG TAB PO SCH ×2 (09:35→21:56)
[2017-06-14] MEDS: ASPIRIN 325 MG TAB PO SCH (09:36)
[2017-06-14] MEDS ORDERED: REGADENOSON 0.4 MG/5 ML SYG ONE (10:40)
[2017-06-14 10:49] LABS: ALBUMIN 2.6 g/dl (3.3-4.9); ALBUMIN/GLOBULIN RATIO 0.74; BILIRUBIN,INDIRECT 0.6 mg/dl (0-1.1); BILIRUBIN,TOTAL 0.6 mg/dl (0.2-1.3); CALCIUM 8.6 mg/dl (8.4-10.2); CREATININE 0.59 mg/dl (0.44-1.00); MAGNESIUM 1.6 mg/dl (1.7-2.5); TOTAL PROTEIN 6.1 g/dl (6.1-8.1)
--- NOTE | 2017-06-14 11:07 | CONS ---
Date/Time of Note Date/Time of Note DATE: 06/14/17 TIME: 11:01 Assessment/Plan Assessment/Plan Chief Complaint/Hosp Course IMP: 1.Positive troponin-now trended negative.No CP 2.SVT-now in SR 3.Colon ca 4.UTI Recc: -Tele -serial ecg -Continue coreg -Continue asa -Lexiscan stress test today Problems: Consultation Date/Type/Reason Admit Date/Time Jun 12, 2017 at 07:52 Initial Consult Date 06/13/2017 Type of Consultation: cardiology Reason for Consultation positive troponin Referring Provider: FATMATA DALE Exam/Review of Systems Vital Signs Vitals Vital Signs Date Time Temp Pulse Resp B/P Pulse Ox O2 Delivery O2 Flow Rate FiO2 06/14/17 09:30 Nasal Cannula 2.0 06/14/17 08:08 98.0 75 18 104/55 99 Intake and Output 06/13/17 06/13/17 06/14/17 15:00 23:00 07:00 Intake Total 1200 ml 550 ml Output Total 300 ml 750 ml Balance -300 ml 450 ml 550 ml Exam Review of Systems: CONSTITUTIONAL: No fevers, chills. PULMONARY: No sob CARDIOVASCULAR: No chest pain/palpitations GASTROINTESTINAL: No nausea/vomiting. GENITOURINARY: No hematuria/dysuria. MUSCULOSKELETAL: No myagias/arthalgias. PSYCHIATRIC: The patient denies depression. NEUROLOGIC: No weakness Constitutional: alert, oriented Psych: no complaints Head: normocephalic ENMT: mucosa pink and moist Neck: jvd (9 cm water), supple Respiratory: clear to auscultation Cardiovascular: regular rate and rhythm Gastrointestinal: non-tender, soft Musculoskeletal: muscle tone (normal) Extremities: edema (none) Results Result Diagram: 06/13/1761606/13/1717 Results 24 hrs Laboratory Tests Test 06/13/17 15:20 Urine Osmolality 621 Urine Random Creatinine 77.60 Urine Random Sodium 21 L Urine Random Urea Nitrogen 830 Urine Total Protein 25.0 H Medications Medications Current Medications Ondansetron HCl (Zofran Tab) 4 mg Q6H PRN PO NAUSEA AND/OR VOMITING; Start at 09:00 Ondansetron HCl (Zofran Inj) 4 mg Q6H PRN IV NAUSEA AND/OR VOMITING; Start at 09:00 Acetaminophen (Tylenol Tab) 650 mg Q6H PRN PO PAIN LEVEL 1-3 OR FEVER; Start 06/12/17 at 09:00 Acetaminophen/ Hydrocodone Bitart ([place] (5/325)) 1 tab Q6H PRN PO MODERATE PAIN LEVEL 4-6; Start 06/12/17 at 09:00 Docusate Sodium (Colace) 100 mg Q12H PRN PO CONSTIPATION; Start 06/12/17 at 09 :00 Magnesium Hydroxide (Milk Of Mag) 30 ml DAILY PRN PO CONSTIPATION; Start 06/12 at 09:00 Bisacodyl (Dulcolax) 5 mg DAILY PRN PO CONSTIPATION; Start 06/12/17 at 09:00 Enoxaparin Sodium (Lovenox) 40 mg DAILY SC Last administered on 06/13/17 10: 56; Admin Dose 40 MG; Start 06/12/17 at 09:00 Ferrous Sulfate (Ferrous Sulfate (Ec)) 325 mg BID PO Last administered on 06/14 09:35; Admin Dose 325 MG; Start 06/12/17 at 09:00 Aspirin (Aspirin) 325 mg DAILY PO Last administered on 06/14/17 09:36; Admin Dose 325 MG; Start 06/14/17 at 09:00 Carvedilol (Coreg) 6.25 mg BID NGT Last administered on 06/14/17 09:35; Admin Dose 6.25 MG; Start 06/13/17 at 21:00 CAROLINA MACHADO Jun 14, 2017 11:07
--- NOTE | 2017-06-14 11:53 | CARRPT ---
DATE OF PROCEDURE: 06/14/2017 LEXISCAN CARDIOLITE STRESS TEST REASON FOR STRESS TESTING: Positive troponin, assess significance. BASELINE VITAL SIGNS AND ELECTROCARDIOGRAM: Pulse 62, blood pressure 104/54. Electrocardiogram rev eals normal sinus rhythm, rate of 63, normal axis, normal intervals, T-wave inversion isolated to le ad III. PROCEDURE: The patient underwent standard Lexiscan infusion protocol over 10 seconds followed by ra diolabeled tracer. The patient's test was stopped due to completion of protocol. Maximal blood pre ssure during the test 80/46. Maximal heart rate during the test 82. SYMPTOMS: The patient had no complaints of chest pain or shortness of breath during stress testing. The patient had a hypotensive response to tracer. IMPRESSION: 1. No Lexiscan-induced ST or T-wave changes from baseline abnormalities diagnostic for ischemia. 2. Hypotensive response to Lexiscan infusion. 3. No documented premature ventricular contractions. 4. No chest pain or shortness of breath during stress testing. 5. Report of nuclear images to follow in separate dictation. Dictated By: CAROLINA DIAZ/NONI Conf#: [id number] DID#: [id number] CC: Kathleen Harper;*EndCC*
[2017-06-14] MEDS ORDERED: SOD CHLORIDE 0.9% 500 ML IV ONE (12:30)
--- NOTE | 2017-06-14 12:42 | RADRPT ---
PROCEDURE: Nuclear medicine myocardial perfusion scan CLINICAL INDICATION: Positive troponins, chest pain. TECHNIQUE: 30.0 mCi of technetium 99m Cardiolite was administered for the stress study. 9.6 mCi o f technetium 99m Cardiolite was administered for the resting study. The patient was stressed with 0. 4 mg of Lexiscan. Images were reviewed in the short axis, vertical long axis, and horizontal long a xis views. Wall motion was assessed and ejection fraction was calculated as well. Images were revie wed on a high-resolution PACS workstation. COMPARISON: None available FINDINGS: Left ventricular size is within normal limits. The stress tomographic images demonstrate a normal pattern of perfusion. The resting tomographic images demonstrate a similar pattern. There is no ev idence for reversible ischemia. Wall motion is normal. The ejection fraction is calculated at 54%. IMPRESSION: 1. Negative myocardial perfusion scan. 2. There is no evidence for reversible ischemia. 3. Normal wall motion with normal ejection fraction of 54%. RPTAT: [facility] Physician Arvind Date Time Electronically viewed and signed by Physician Arvind on 06/14/2017 12:42 /
--- NOTE | 2017-06-14 15:11 | RADRPT ---
Echocardiogram Report Patient Name: ALEXANDRE CHIANG Gender: Female Date: 1935 Study Date: 14-Jun-2017 Business Systems Developer: Breanne Saldana [facility] Location: 5566 Ref. Physician: JANIS GILES Quality: Good Procedures: Transthoracic echocardiogram with complete 2D, M-Mode, and doppler examination. Indications: Atrial Fibrillation. SVT. 2D/M Mode Doppler Measurement Value Normal Ranges Measurement Value Normal Ranges LVIDd 2D 4.2 3.5 - 5.6 cm AV Peak Charan 1.3 m/sec LVIDs 2D 1.9 2.1 - 4.1 cm AV Peak PG 6.6 mmHg LVPWd 2D 1.1 0.6 - 1.1 cm AI Peak PG 49.5 mmHg IVSd 2D 0.9 0.6 - 1.1 cm AI Peak Charan 3.5 m/sec AoR Diam 2D 2.8 2.0 - 3.7 cm AI PHT 439.2 msec EDV 2D 77.0 cm3 LVOT Peak Charan 0.9 m/sec ESV 2D 7.0 cm3 LVOT Peak PG 3.4 mmHg LA Dimen 2D 2.1 2.3 - 4.0 cm MV E Peak Charan 0.4 m/sec MV A Peak Charan 0.7 m/sec MV E/A 0.5 MV Decel Time 190 msec MV Decel Bent 2 MV E/A 0.5 TR Peak Charan 3.2 m/sec TR Peak PG 40.4 mmHg RVSP 43.0 mmHg Findings Left Ventricle: Normal left ventricular cavity size. Mild concentric left ventricular hypertrophy. Mild global left ventricular systolic dysfunction. Ejection fraction is visually estimated at 4550 %. Tissue Doppler/Mitral Doppler indices are consistent with impaired relaxation (Stage I diastolic dysfunction). Right Ventricle: Normal right ventricular size. Normal right ventricular systolic function. Left Atrium: The left atrium is normal in size. Right Atrium: The right atrium is normal in size. Mitral Valve: Normal appearance and function of the mitral valve with trace physiologic regurgitation. Aortic Valve: No hemodynamically significant aortic stenosis by doppler. Aortic cusps appear mildly calcified. Mild aortic valve regurgitation. Tricuspid Valve: Normal appearance of the tricuspid valve. Estimated peak PA systolic pressure 43 mmHg. There is mild tricuspid regurgitation. Pulmonic Valve: Pulmonic valve not well visualized. Pericardium: Normal pericardium with no significant pericardial effusion. Aorta: Normal aortic root. IVC: Normal size and normal respiratory collapse consistent with normal right atrial pressure. Conclusions 1.Normal left ventricular cavity size. Mild concentric left ventricular hypertrophy. Mild global left ventricular systolic dysfunction. Ejection fraction is visually estimated at 45-50 %. Tissue Doppler/Mitral Doppler indices are consistent with impaired relaxation (Stage I diastolic dysfunction). 2.Normal appearance and function of the mitral valve with trace physiologic regurgitation. 3.No hemodynamically significant aortic stenosis by doppler. Aortic cusps appear mildly calcified. Mild aortic valve regurgitation. 4.Normal appearance of the tricuspid valve. Estimated peak PA systolic pressure 43 mmHg. There is mild tricuspid regurgitation. Electronically Signed By: Júnior Phillips 14-Jun-2017 15:10:37 -0800 Patient Name: ALEXANDRE CHIANG Study Date: 14-Jun-2017 [id number]
--- NOTE | 2017-06-14 16:34 | PN ---
Date/Time of Note Date/Time of Note DATE: 06/14/17 TIME: 16:24 Assessment/Plan VTE Prophylaxis VTE Prophylaxis Intervention: LMWH Lines/Catheters IV Catheter Type (from Nrs): Peripheral IV Urinary Cath still in place: No Assessment/Plan Chief Complaint/Hosp Course 1. A. fib with RVR-resolved, now in sinus Status post Cardizem drip Cardiology consultation appreciated Continue aspirin and beta-aly 2. Non-STEMI type II secondary to above Troponin normalized Stress test negative Cardiology consultation appreciated 3. History of colon cancer status post resection with anastomosis leak, intra- abdominal infection warranting ostomy and abdominal drain placement CT abdomen shows no intra-abdominal process 4. UTI secondary to yeast Start Diflucan Prophylaxis: Lovenox Problems: Subjective 24 Hr Interval Summary Constitutional: no complaints Exam/Review of Systems Vital Signs Vitals Vital Signs Date Time Temp Pulse Resp B/P Pulse Ox O2 Delivery O2 Flow Rate FiO2 06/14/17 12:03 98.0 65 20 80/54 96 06/14/17 09:30 Nasal Cannula 2.0 Intake and Output 06/13/17 06/13/17 06/14/17 15:00 23:00 07:00 Intake Total 1200 ml 550 ml Output Total 300 ml 750 ml Balance -300 ml 450 ml 550 ml Exam Constitutional: alert Respiratory: clear to auscultation Cardiovascular: regular rate and rhythm Gastrointestinal: soft, No distended Musculoskeletal: nl extremities to inspection Results Result Diagram: 06/13/17 0617 06/14/17 0930 Results 24 hrs Laboratory Tests Test 06/14/17 09:30 Sodium Level 134 L Potassium Level 4.0 Chloride Level 107 Carbon Dioxide Level 19 L Anion Gap 12 Blood Urea Nitrogen 11 Creatinine 0.59 Glucose Level 89 Calcium Level 8.6 Magnesium Level 1.6 L Total Bilirubin 0.6 Direct Bilirubin 0.00 Indirect Bilirubin 0.6 Aspartate Amino Transf (AST/SGOT) 26 Alanine Aminotransferase (ALT/SGPT) 29 Alkaline Phosphatase 78 Total Protein 6.1 Albumin 2.6 L Globulin 3.50 H Albumin/Globulin Ratio 0.74 Medications Medications Current Medications Ondansetron HCl (Zofran Tab) 4 mg Q6H PRN PO NAUSEA AND/OR VOMITING; Start at 09:00 Ondansetron HCl (Zofran Inj) 4 mg Q6H PRN IV NAUSEA AND/OR VOMITING; Start at 09:00 Acetaminophen (Tylenol Tab) 650 mg Q6H PRN PO PAIN LEVEL 1-3 OR FEVER; Start 06/12/17 at 09:00 Acetaminophen/ Hydrocodone Bitart ([place] (5/325)) 1 tab Q6H PRN PO MODERATE PAIN LEVEL 4-6; Start 06/12/17 at 09:00 Docusate Sodium (Colace) 100 mg Q12H PRN PO CONSTIPATION; Start 06/12/17 at 09 :00 Magnesium Hydroxide (Milk Of Mag) 30 ml DAILY PRN PO CONSTIPATION; Start 06/12 at 09:00 Bisacodyl (Dulcolax) 5 mg DAILY PRN PO CONSTIPATION; Start 06/12/17 at 09:00 Enoxaparin Sodium (Lovenox) 40 mg DAILY SC Last administered on 06/13/17 10: 56; Admin Dose 40 MG; Start 06/12/17 at 09:00 Ferrous Sulfate (Ferrous Sulfate (Ec)) 325 mg BID PO Last administered on 06/14 09:35; Admin Dose 325 MG; Start 06/12/17 at 09:00 Aspirin (Aspirin) 325 mg DAILY PO Last administered on 06/14/17 09:36; Admin Dose 325 MG; Start 06/14/17 at 09:00 Carvedilol (Coreg) 6.25 mg BID NGT Last administered on 06/14/17 09:35; Admin Dose 6.25 MG; Start 06/13/17 at 21:00 BAIRON MCKEON Jun 14, 2017 16:34
[2017-06-14] MEDS ORDERED: MAGNESIUM SULFATE 3 GM in DEXTROSE 5% 100 ML IVPB ONE (18:00)
[2017-06-14] MEDS ORDERED: FLUCONAZOLE 100 MG/NS (PMX) 50 ML IVPB SCH (21:00)
[2017-06-15] VITALS (12 sets, daily range): BP systolic 92–136; BP diastolic 54–67; PULSE 62–80; RESP 16–20
--- NOTE | 2017-06-15 06:01 | CONS ---
DATE OF ADMISSION: 06/12/2017 DATE OF CONSULTATION: 06/14/2017 TYPE OF CONSULTATION: Infectious Disease. REASON FOR CONSULTATION: Antibiotic management. HISTORY OF PRESENT ILLNESS: Olga Galvan is a 81-year-old female who presented to the emergency r o with inability to urinate for the past 8 days as well as having lower abdominal pain, general we akness, nausea. Her past problems include diagnosis of colon cancer, status post resection with marvin stomosis complicated by anastomotic leak with intraabdominal infection warranting an ostomy. She soto d abdominal drain placement here. She has been feeling unwell for the few days prior to admission a nd she was discharged 12 days ago. Abdominal drain was pulled 9 days ago by the general surgeon. S he was sent to the emergency room with possibility of a urinary tract infection. On admission, her white count was 10.8, H and H of 13.6 and 42.3, platelet count 237,000. BUN and creatinine 40/0.88. CT scan showed no abscess or small-bowel obstruction. Her urine grew out yeast. White count is 8 .3. Urinalysis showed 1+ leukocyte esterase, 23 white cells per high-power field. She had a CT sca n of the abdomen and pelvis, which showed status post right hemicolectomy, right lower quadrant ileo stomy, formation without evidence of bowel obstruction, mild colonic diverticulosis, nonspecific fat ty infiltration. PAST MEDICAL HISTORY: Operations as outlined. FAMILY HISTORY: Noncontributory. SOCIAL HISTORY: She does not smoke, drink or abuse drugs. ALLERGIES: NONE TO PENICILLIN, SULFA OR FOODS. MEDICATIONS: Per chart. REVIEW OF SYSTEMS: Noncontributory. HOSPITAL COURSE: The patient had an episode of SVT with hypotension. She was given 500 mL of marlee l saline and also she was given adenosine. She had atrial fibrillation with rapid ventricular respo nse, resolved, now status post Cardizem drip. She is on aspirin and beta-blockers. She had non-NOA IN secondary to the above, status post resection with an anastomotic leak. She is now on fluconazol e. PHYSICAL EXAMINATION: GENERAL: She is awake, responsive, in no acute distress. VITAL SIGNS: Stable. She is afebrile. SKIN: Without generalized rash. HEENT: Within normal limits. NECK: Supple. LYMPH NODES: None palpable. CHEST: Decreased breath sounds at the bases. HEART: Without murmur or gallop. ABDOMEN: Soft, nontender, without organosplenomegaly or masses. She has the abdominal dressings. S he has an ostomy. EXTREMITIES: Without cyanosis, clubbing or edema. RECTAL AND GENITAL: Deferred. NEUROLOGIC: No focal neurological abnormalities. IMPRESSION AND PLAN: The patient currently has a urinary tract infection with yeast currently on fl uconazole. Her white count is 8.3 and she is currently afebrile. We will continue her on current t herapy. I will dictate my findings to the hospitalist. Dictated By: JERICHO DUNHAM MD, JD/NONI Conf#: [id number] DID#: [id number] CC: Kathleen Harper;*End*
[2017-06-15] MEDS: ASPIRIN 325 MG TAB PO SCH (09:05)
[2017-06-15] MEDS: FERROUS SULFATE (EC) 325 MG TAB PO SCH ×2 (09:05→21:27)
[2017-06-15] MEDS: ENOXAPARIN 40 MG/0.4 ML SYG SC SCH (09:06)
[2017-06-15 09:11] LABS: BASOPHIL # 0.1 10^3/ul (0.0-0.1); BASOPHILS % 0.9 % (0.0-2.0); EOSINOPHILS # 0.1 10^3/ul (0.0-0.5); EOSINOPHILS % 1.6 % (0.0-7.0); HEMATOCRIT 38.8 % (37.0-47.0); HEMOGLOBIN 12.1 g/dl (12.0-16.0); LYMPHOCYTES # 1.8 10^3/ul (0.8-2.9); LYMPHOCYTES % 22.7 % (15.0-51.0); MEAN CORPUSCULAR HEMOGLOBIN 28.3 pg (29.0-33.0); MEAN CORPUSCULAR HGB CONC 31.2 g/dl (32.0-37.0); MEAN CORPUSCULAR VOLUME 90.7 fl (82.0-101.0); MEAN PLATELET VOLUME 8.8 fl (7.4-10.4); MONOCYTE # 0.7 10^3/ul (0.3-0.9); MONOCYTES % 8.5 % (0.0-11.0); NEUTROPHIL # 5.3 10^3/ul (1.6-7.5); NEUTROPHILS % 65.2 % (39.0-77.0); PLATELET COUNT 273 10^3/UL (140-415); RED BLOOD COUNT 4.28 10^6/ul (4.20-5.40); RED CELL DISTRIBUTION WIDTH 20.2 % (11.5-14.5); WHITE BLOOD COUNT 8.1 10^3/ul (4.8-10.8)
[2017-06-15 09:47] LABS: CALCIUM 8.6 mg/dl (8.4-10.2); CREATININE 0.58 mg/dl (0.44-1.00); MAGNESIUM 2.2 mg/dl (1.7-2.5); POTASSIUM 3.8 mmol/L (3.5-5.1)
--- NOTE | 2017-06-15 11:08 | PN ---
Date/Time of Note Date/Time of Note DATE: 06/15/17 TIME: 11:08 Assessment/Plan VTE Prophylaxis VTE Prophylaxis Intervention: SCD's Lines/Catheters IV Catheter Type (from Nrs): Peripheral IV Urinary Cath still in place: No Assessment/Plan Assessment/Plan 1. A. fib with RVR- back in sinus - Cardiology on board and recommendations appreciated. Continue on BB and aspirin - EF 55% on ECHO - Continue current management 2. Non-STEMI type II secondary to above - Troponin normalized - Stress test negative - Cardiology consultation appreciated 3. History of colon cancer status post resection with anastomosis leak, intra- abdominal infection warranting ostomy and abdominal drain placement - CT abdomen shows no intra-abdominal process 4. UTI secondary to yeast - One dose of Diflucan given - ID on board and recommendations appreciated. 5. Disposition - if remains stable can be d/c home in next 24 hours with FWW Subjective 24 Hr Interval Summary Free Text/Dictation Patient states shes feeling better this am and ambulating to restroom with assistance. No acute overnight events. Exam/Review of Systems Vital Signs Vitals Vital Signs Date Time Temp Pulse Resp B/P Pulse Ox O2 Delivery O2 Flow Rate FiO2 06/15/17 08:12 97.8 75 17 102/55 98 06/15/17 02:43 3.0 06/14/17 20:00 Nasal Cannula Intake and Output 06/14/17 06/14/17 06/15/17 15:00 23:00 07:00 Intake Total 500 ml Balance 500 ml Exam Constitutional: alert, oriented, well developed, No distress Psych: nl mood/affect Head: atraumatic, normocephalic Eyes: EOMI, PERRL ENMT: mucosa pink and moist Neck: supple Respiratory: clear to auscultation, No crackles/rales, No wheezing Cardiovascular: regular rate and rhythm, systolic murmur Gastrointestinal: non-tender, soft, No distended, No mass Musculoskeletal: nl extremities to inspection Extremities: normal pulses Neurological: APPLICATION SECURITY ARCHITECT II-XII intact, nl mental status, nl speech Skin: nl turgor Lymph: nl lymph nodes Results Result Diagram: 06/15/17 0736 06/15/17 0736 Results 24 hrs Laboratory Tests Test 06/15/17 07:36 White Blood Count 8.1 Red Blood Count 4.28 Hemoglobin 12.1 Hematocrit 38.8 Mean Corpuscular Volume 90.7 Mean Corpuscular Hemoglobin 28.3 L Mean Corpuscular Hemoglobin Concent 31.2 L Red Cell Distribution Width 20.2 H Platelet Count 273 Mean Platelet Volume 8.8 Neutrophils % 65.2 Lymphocytes % 22.7 Monocytes % 8.5 Eosinophils % 1.6 Basophils % 0.9 Nucleated Red Blood Cells % 0.0 Neutrophils # 5.3 Lymphocytes # 1.8 Monocytes # 0.7 Eosinophils # 0.1 Basophils # 0.1 Nucleated Red Blood Cells # 0.0 Sodium Level 134 L Potassium Level 3.8 Chloride Level 106 Carbon Dioxide Level 21 Anion Gap 11 Blood Urea Nitrogen 11 Creatinine 0.58 Glucose Level 89 Calcium Level 8.6 Magnesium Level 2.2 Medications Medications Current Medications Ondansetron HCl (Zofran Tab) 4 mg Q6H PRN PO NAUSEA AND/OR VOMITING; Start at 09:00 Ondansetron HCl (Zofran Inj) 4 mg Q6H PRN IV NAUSEA AND/OR VOMITING; Start at 09:00 Acetaminophen (Tylenol Tab) 650 mg Q6H PRN PO PAIN LEVEL 1-3 OR FEVER; Start 06/12/17 at 09:00 Acetaminophen/ Hydrocodone Bitart ([place] (5/325)) 1 tab Q6H PRN PO MODERATE PAIN LEVEL 4-6; Start 06/12/17 at 09:00 Docusate Sodium (Colace) 100 mg Q12H PRN PO CONSTIPATION; Start 06/12/17 at 09 :00 Magnesium Hydroxide (Milk Of Mag) 30 ml DAILY PRN PO CONSTIPATION; Start 06/12 at 09:00 Bisacodyl (Dulcolax) 5 mg DAILY PRN PO CONSTIPATION; Start 06/12/17 at 09:00 Enoxaparin Sodium (Lovenox) 40 mg DAILY SC Last administered on 06/15/17 09: 06; Admin Dose 40 MG; Start 06/12/17 at 09:00 Ferrous Sulfate (Ferrous Sulfate (Ec)) 325 mg BID PO Last administered on 06/15 09:05; Admin Dose 325 MG; Start 06/12/17 at 09:00 Aspirin (Aspirin) 325 mg DAILY PO Last administered on 06/15/17 09:05; Admin Dose 325 MG; Start 12/18/17 at 09:00 Carvedilol 6.25 mg 6.25 mg BID NGT Last administered on 06/15/17 09:06; Admin Dose 6.25 MG; Start 06/13/17 at 21:00 Fluconazole/ Sodium Chloride (Diflucan 100 Mg/ NS (Pmx)) 50 ml @ 50 mls/hr Q24H IVPB Last administered on 06/14/17 21:54; Admin Dose 50 MLS/HR; Start at 21:00 JOSHUA TROY MD Jun 15, 2017 11:08
--- NOTE | 2017-06-15 11:45 | CONS ---
Date/Time of Note Date/Time of Note DATE: 06/15/17 TIME: 11:44 Assessment/Plan Assessment/Plan Additional Assessment/Plan 1. Tachycardia. Patient is tachycardic, appears to be sinus tachycardia in nature. The patient's tachycardia appears to be of supraventricular tachycardia in nature, most consistent with atrioventricular hedy reentry tachycardia versus atrial tachycardia which terminated with a pause on adenosine for now. Conservative therapy is expected. We will add a beta aly and aspirin and follow expectantly. HR well rX now. 2. Elevated troponins. The patient has elevated troponins in the setting of tachycardia. STRESS TEST EF 5$%, no ischemia. 3. Electrolyte abnormality. Potassium was high at 5.2, continue to adjust therapy as needed and consider gentle diuresis if necessary. 4. Colon cancer. The patient with history of colon cancer, defer to primary team for evaluation. 5. History of anemia. Hemoglobin is fairly stable, no active bleeding now. Consultation Date/Type/Reason Admit Date/Time Jun 12, 2017 at 07:52 Type of Consultation: cardiology Referring Provider: FATMATA DALE 24 HR Interval Summary Free Text/Dictation NO new change - HR stable - STRESS TEST EF 5$%, no ischemia. ROS: No fever, no chills, no nausea, no vomiting, no diarrhea/constipation No recent weight changes No chest pain, no PND, no orthopnea No dizziness, blurred vision No thirst, no heat or cold intolerance Exam/Review of Systems Vital Signs Vitals Vital Signs Date Time Temp Pulse Resp B/P Pulse Ox O2 Delivery O2 Flow Rate FiO2 06/15/17 08:12 97.8 75 17 102/55 98 06/15/17 02:43 3.0 06/14/17 20:00 Nasal Cannula Intake and Output 06/14/17 06/14/17 06/15/17 15:00 23:00 07:00 Intake Total 500 ml Balance 500 ml Exam General: WN/WD/NAD, AOx 3 HEENT: Unicetric/atraumatic/EOMI (follow commands) NECK: JVD elevated, no thyromegaly Lymph: no lymphadenopathy HEART: regular with no S3, II/ systolic murmur at apex LUNGS: Coarse sounds ABD: soft, NT, ND, +BS : Intact Neuro: non focal SKIN: chronic changes EXT: trace edema Results Result Diagram: 06/15/17 0736 06/15/17 0736 Results 24 hrs Laboratory Tests Test 06/15/17 07:36 White Blood Count 8.1 Red Blood Count 4.28 Hemoglobin 12.1 Hematocrit 38.8 Mean Corpuscular Volume 90.7 Mean Corpuscular Hemoglobin 28.3 L Mean Corpuscular Hemoglobin Concent 31.2 L Red Cell Distribution Width 20.2 H Platelet Count 273 Mean Platelet Volume 8.8 Neutrophils % 65.2 Lymphocytes % 22.7 Monocytes % 8.5 Eosinophils % 1.6 Basophils % 0.9 Nucleated Red Blood Cells % 0.0 Neutrophils # 5.3 Lymphocytes # 1.8 Monocytes # 0.7 Eosinophils # 0.1 Basophils # 0.1 Nucleated Red Blood Cells # 0.0 Sodium Level 134 L Potassium Level 3.8 Chloride Level 106 Carbon Dioxide Level 21 Anion Gap 11 Blood Urea Nitrogen 11 Creatinine 0.58 Glucose Level 89 Calcium Level 8.6 Magnesium Level 2.2 Medications Medications Current Medications Ondansetron HCl (Zofran Tab) 4 mg Q6H PRN PO NAUSEA AND/OR VOMITING; Start at 09:00 Ondansetron HCl (Zofran Inj) 4 mg Q6H PRN IV NAUSEA AND/OR VOMITING; Start at 09:00 Acetaminophen (Tylenol Tab) 650 mg Q6H PRN PO PAIN LEVEL 1-3 OR FEVER; Start 06/12/17 at 09:00 Acetaminophen/ Hydrocodone Bitart ([place] (5/325)) 1 tab Q6H PRN PO MODERATE PAIN LEVEL 4-6; Start 06/12/17 at 09:00 Docusate Sodium (Colace) 100 mg Q12H PRN PO CONSTIPATION; Start 06/12/17 at 09 :00 Magnesium Hydroxide (Milk Of Mag) 30 ml DAILY PRN PO CONSTIPATION; Start 06/12 at 09:00 Bisacodyl (Dulcolax) 5 mg DAILY PRN PO CONSTIPATION; Start 06/12/17 at 09:00 Enoxaparin Sodium (Lovenox) 40 mg DAILY SC Last administered on 06/15/17 09: 06; Admin Dose 40 MG; Start 06/12/17 at 09:00 Ferrous Sulfate (Ferrous Sulfate (Ec)) 325 mg BID PO Last administered on 06/15 09:05; Admin Dose 325 MG; Start 06/12/17 at 09:00 Aspirin (Aspirin) 325 mg DAILY PO Last administered on 06/15/17 09:05; Admin Dose 325 MG; Start 06/14/17 at 09:00 Carvedilol 6.25 mg 6.25 mg BID NGT Last administered on 06/15/17 09:06; Admin Dose 6.25 MG; Start 06/13/17 at 21:00 Fluconazole/ Sodium Chloride (Diflucan 100 Mg/ NS (Pmx)) 50 ml @ 50 mls/hr Q24H IVPB Last administered on 06/14/17 21:54; Admin Dose 50 MLS/HR; Start at 21:00 RADHA NOBLE MD Jun 15, 2017 11:45
--- NOTE | 2017-06-15 20:31 | PN ---
DATE: 06/15/2017 INFECTIOUS DISEASE PROGRESS NOTE SUBJECTIVE: No acute changes overnight. The patient is alert, feels good, denies pain. She is afe brile. WBC today 8.1, no shift, no bands. BUN 11, creatinine 0.58. MICROBIOLOGY: Urine culture grew yeast, not Sophie albicans. ANTIMICROBIALS: She is on fluconazole. DIAGNOSTICS: CT of the abdomen and pelvis revealed Status post right hemicolectomy and right lower quadrant ileostomy formation without evidence of bowel obstruction, mild colonic diverticulosis, non specific fat infiltrative changes in the lower half of the right abdomen, presumably resolving posto perative changes. PHYSICAL EXAMINATION: GENERAL: Well-developed, well-nourished, elderly woman who is alert, in no distress. HEENT: Head atraumatic, normocephalic. Sclerae anicteric. Buccal mucosa pink. NECK: Supple. CHEST: Rise symmetrical. Breath sounds clear. HEART: S1, S2. ABDOMEN: Soft, bowel tones present. EXTREMITIES: Without cyanosis, edema. ASSESSMENT: 1. Fungal urinary tract infection. 2. Status post rapid atrial fibrillation and [id number] myocardial infarction. 3. History of colon cancer, status post resection with anastomotic leak and intra-abdominal abscess drainage. 4. Anemia. PLAN: We are going to change Diflucan to voriconazole. Continue present care as per primary team a nd consultants. Dictated By: STEPHENIE WAGNER WAREHOUSE DELIVERY DRIVER for JERICHO DUNHAM MD NI/NTS Conf#: [id number] DID#: [id number] CC: JOSHUA TROY;*EndCC*
[2017-06-15] MEDS ORDERED: FLUCONAZOLE 100 MG/NS (PMX) 50 ML IVPB SCH (21:00)
[2017-06-15] MEDS: VORICONAZOLE 200 MG TAB PO SCH (23:30)
[2017-06-16] VITALS (15 sets, daily range): BP systolic 87–105; BP diastolic 50–59; PULSE 69–97; RESP 16–20
[2017-06-16] MEDS: ASPIRIN 325 MG TAB PO SCH (09:30)
[2017-06-16] MEDS: FERROUS SULFATE (EC) 325 MG TAB PO SCH ×2 (09:30→22:29)
[2017-06-16] MEDS: VORICONAZOLE 200 MG TAB PO SCH ×2 (09:33→22:29)
[2017-06-16] MEDS: ENOXAPARIN 40 MG/0.4 ML SYG SC SCH (09:37)
[2017-06-16] MEDS ORDERED: VORI200T12 PO (13:18)
[2017-06-16] MEDS ORDERED: FER325 PO (13:18)
[2017-06-16] MEDS ORDERED: ASPI325T4 PO (13:18)
[2017-06-16] MEDS ORDERED: CARV6.2579 PO (13:18)
--- NOTE | 2017-06-16 13:26 | PDOCDIS ---
Discharge Instructions DIAGNOSIS Discharge Diagnosis 1. A. fib with RVR- back in sinus 2. Non-STEMI type II s 3. History of colon cancer status post resection with anastomosis leak, intra- abdominal infection warranting ostomy 4. UTI secondary to yeast CONDITION Patient Condition: Stable HOME CARE INSTRUCTIONS: Special Diet: CARDIAC FOLLOW UP/APPOINTMENTS Follow-up Plan 1. Follow up with Dr. Júnior Phillips in one week Office Address [address] [place] [id number] Office MARY URBINA Jun 16, 2017 13:26
--- NOTE | 2017-06-16 14:20 | PN ---
Date/Time of Note Date/Time of Note DATE: 06/16/17 TIME: 14:17 Assessment/Plan VTE Prophylaxis VTE Prophylaxis Intervention: LMWH Lines/Catheters IV [facility]ter [facility]from [facility] [place] [facility] Urinary Cath still in place: No Assessment/Plan Chief Complaint/Hosp Course Assessment and plan 1. Atrial fibrillation with RVR. 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 On telemetry for now. 2. Non-ST elevated myocardial infarction likely secondary to #1. Stress test is negative. Continue with die cutting machine operator or conditions. Stable at present. 3. History of colon cancer status post resection with anastomosis leak, intra- abdominal infection with now ostomy in place. No acute intra-abdominal findings per imaging. Will monitor for now. 4. UTI. Continue voriconazole per ID. Disposition plan: Patient did have episode of hypotension. Will plan for IV hydration. Will plan for discharge within the next 24 hours if remains stable. Discussed with Dr. Grimm Problems: Subjective 24 Hr Interval Summary Free Text/Dictation reports feeling dizzy. per RN, patient is slightly hypotensive. Exam/Review of Systems Vital Signs Vitals Vital Signs Date Time Temp Pulse Resp B/P Pulse Ox O2 Delivery O2 Flow Rate FiO2 06/16/17 14:05 105/59 06/16/17 12:23 78 06/16/17 12:16 98.1 17 96 06/16/17 09:35 3.0 06/15/17 12:00 Nasal Cannula Intake and Output 06/15/17 06/15/17 06/16/17 15:00 23:00 07:00 Intake Total 400 ml Output Total 400 ml Balance 0 ml Exam Constitutional: alert, oriented Psych: anxiety Head: normocephalic Neck: non-tender, supple Respiratory: clear to auscultation Cardiovascular: other (regular rate ) Gastrointestinal: other (colostomy bag in place ), soft Neurological: INSPECTOR METAL FABRICATING II-XII intact, nl mental status, nl speech Results Result Diagram: 06/15/17 0736 06/15/17 0736 Medications Medications Current Medications Ondansetron HCl (Zofran Tab) 4 mg Q6H PRN PO NAUSEA AND/OR VOMITING; Start at 09:00 Ondansetron HCl (Zofran Inj) 4 mg Q6H PRN IV NAUSEA AND/OR VOMITING; Start at 09:00 Acetaminophen (Tylenol Tab) 650 mg Q6H PRN PO PAIN LEVEL 1-3 OR FEVER; Start 06/12/17 at 09:00 Acetaminophen/ Hydrocodone Bitart ([place] (5/325)) 1 tab Q6H PRN PO MODERATE PAIN LEVEL 4-6; Start 06/12/17 at 09:00 Docusate Sodium (Colace) 100 mg Q12H PRN PO CONSTIPATION; Start 06/12/17 at 09 :00 Magnesium Hydroxide (Milk Of Mag) 30 ml DAILY PRN PO CONSTIPATION; Start 06/12 at 09:00 Bisacodyl (Dulcolax) 5 mg DAILY PRN PO CONSTIPATION; Start 06/12/17 at 09:00 Enoxaparin Sodium (Lovenox) 40 mg DAILY SC Last administered on 06/16/17 09: 37; Admin Dose 40 MG; Start 06/12/17 at 09:00 Ferrous Sulfate (Ferrous Sulfate (Ec)) 325 mg BID PO Last administered on 06/16 09:30; Admin Dose 325 MG; Start 06/12/17 at 09:00 Aspirin (Aspirin) 325 mg DAILY PO Last administered on 06/16/17 09:30; Admin Dose 325 MG; Start 06/14/17 at 09:00 Carvedilol (Coreg) 6.25 mg BID NGT Last administered on 06/16/17 09:31; Admin Dose 6.25 MG; Start 06/13/17 at 21:00 Voriconazole (Vfend) 200 mg BID PO Last administered on 06/16/17 09:33; Admin Dose 200 MG; Start 06/15/17 at 21:00 MARY URBINA Jun 16, 2017 14:20
[2017-06-16] MEDS ORDERED: SOD CHLORIDE 0.9% 500 ML IV ONE (14:30)
[2017-06-16] MEDS ORDERED: MECLIZINE 12.5 MG TAB PO PRN (14:30)
--- NOTE | 2017-06-16 14:56 | CONS ---
Date/Time of Note Date/Time of Note DATE: 06/16/17 TIME: 14:55 Assessment/Plan Assessment/Plan Chief Complaint/Hosp Course SUBJECTIVE: No acute changes overnight. The patient is alert, feels better, denies pain. No fevers, no dysuria MICROBIOLOGY: Urine culture grew yeast, not Sophie albicans. ANTIMICROBIALS: Vfend. DIAGNOSTICS: CT of the abdomen and pelvis revealed Status post right hemicolectomy and right lower quadrant ileostomy formation without evidence of bowel obstruction, mild colonic diverticulosis, nonspecific fat infiltrative changes in the lower half of the right abdomen, presumably resolving postoperative changes. PHYSICAL EXAMINATION: GENERAL: Well-developed, well-nourished, elderly woman who is alert, in no distress. HEENT: Head atraumatic, normocephalic. Sclerae anicteric. Buccal mucosa pink. NECK: Supple. CHEST: Rise symmetrical. Breath sounds clear. HEART: S1, S2. ABDOMEN: Soft, bowel tones present. EXTREMITIES: Without cyanosis, edema. ASSESSMENT: 1. Fungal urinary tract infection. 2. Status post rapid atrial fibrillation and [id number] myocardial infarction. 3. History of colon cancer, status post resection with anastomotic leak and intra-abdominal abscess drainage. 4. Anemia. PLAN: Stable, continue voriconazole for 6 more days. DW staff Problems: Consultation Date/Type/Reason Admit Date/Time Jun 12, 2017 at 07:52 Initial Consult Date Type of Consultation: ID Referring Provider: FATMATA DALE Exam/Review of Systems Vital Signs Vitals Vital Signs Date Time Temp Pulse Resp B/P Pulse Ox O2 Delivery O2 Flow Rate FiO2 06/16/17 14:05 105/59 06/16/17 12:23 78 06/16/17 12:16 98.1 17 96 06/16/17 09:35 3.0 06/15/17 12:00 Nasal Cannula Intake and Output 06/15/17 06/15/17 06/16/17 15:00 23:00 07:00 Intake Total 400 ml Output Total 400 ml Balance 0 ml Results Result Diagram: 06/15/17 0736 06/15/17 0736 Medications Medications Current Medications Ondansetron HCl (Zofran Tab) 4 mg Q6H PRN PO NAUSEA AND/OR VOMITING; Start at 09:00 Ondansetron HCl (Zofran Inj) 4 mg Q6H PRN IV NAUSEA AND/OR VOMITING; Start at 09:00 Acetaminophen (Tylenol Tab) 650 mg Q6H PRN PO PAIN LEVEL 1-3 OR FEVER; Start 06/12/17 at 09:00 Acetaminophen/ Hydrocodone Bitart ([place] (5/325)) 1 tab Q6H PRN PO MODERATE PAIN LEVEL 4-6; Start 06/12/17 at 09:00 Docusate Sodium (Colace) 100 mg Q12H PRN PO CONSTIPATION; Start 06/12/17 at 09 :00 Magnesium Hydroxide (Milk Of Mag) 30 ml DAILY PRN PO CONSTIPATION; Start 06/12 at 09:00 Bisacodyl (Dulcolax) 5 mg DAILY PRN PO CONSTIPATION; Start 06/12/17 at 09:00 Enoxaparin Sodium (Lovenox) 40 mg DAILY SC Last administered on 06/16/17 09: 37; Admin Dose 40 MG; Start 06/12/17 at 09:00 Ferrous Sulfate (Ferrous Sulfate (Ec)) 325 mg BID PO Last administered on 06/16 09:30; Admin Dose 325 MG; Start 06/12/17 at 09:00 Aspirin (Aspirin) 325 mg DAILY PO Last administered on 06/16/17 09:30; Admin Dose 325 MG; Start 06/14/17 at 09:00 Carvedilol (Coreg) 6.25 mg BID NGT Last administered on 06/16/17 09:31; Admin Dose 6.25 MG; Start 06/13/17 at 21:00 Voriconazole 200 mg 200 mg BID PO Last administered on 06/16/17 09:33; Admin Dose 200 MG; Start 06/15/17 at 21:00 Sodium Chloride (NS) 500 ml @ 500 mls/hr Q1H ONCE IV Last administered on 14:39; Admin Dose 500 MLS/HR; Start 06/16/17 at 14:30; Stop 06/16/17 at 15:29 Meclizine HCl (Antivert) 12.5 mg ONCE PRN PO dizziness Last administered on 14:39; Admin Dose 12.5 MG; Start 06/16/17 at 14:30; Stop 06/16/17 at 23:00 STEPHENIE WAGNER NP Jun 16, 2017 14:56
--- NOTE | 2017-06-16 16:35 | CONS ---
Date/Time of Note Date/Time of Note DATE: 06/16/17 TIME: 16:31 Assessment/Plan Assessment/Plan Chief Complaint/Hosp Course IMP: 1.Positive troponin-now trended negative.No CP. Stress test negative for ischemia with low NL EF and echo with EF 45-50 2.SVT-now in SR and remains 3.Colon ca 4.UTI-fungal Recc: -Tele -serial ecg -Continue coreg -Continue asa -Continue voriconazole Problems: Consultation Date/Type/Reason Admit Date/Time Jun 12, 2017 at 07:52 Initial Consult Date 06/13/2017 Type of Consultation: cardiology Reason for Consultation SVT/positive troponini Referring Provider: FATMATA DALE Exam/Review of Systems Vital Signs Vitals Vital Signs Date Time Temp Pulse Resp B/P Pulse Ox O2 Delivery O2 Flow Rate FiO2 06/16/17 16:23 75 06/16/17 15:54 98.6 18 93/51 98 06/16/17 15:40 Room Air 06/16/17 09:35 3.0 Intake and Output 06/15/17 06/15/17 06/16/17 15:00 23:00 07:00 Intake Total 400 ml Output Total 400 ml Balance 0 ml Exam Review of Systems: CONSTITUTIONAL: No fevers, chills. PULMONARY: No sob CARDIOVASCULAR: No chest pain/palpitations GASTROINTESTINAL: No nausea/vomiting. GENITOURINARY: No hematuria/dysuria. MUSCULOSKELETAL: No myagias/arthalgias. PSYCHIATRIC: The patient denies depression. NEUROLOGIC: No weakness Constitutional: alert, oriented Psych: no complaints Head: normocephalic ENMT: mucosa pink and moist Neck: jvd (9 cm water), supple Respiratory: clear to auscultation Cardiovascular: regular rate and rhythm Gastrointestinal: non-tender, soft Musculoskeletal: muscle tone (normal) Extremities: edema (none) Neurological: other (No focal deficits) Results Result Diagram: 06/15/1736 06/15/17 07 Medications Medications Current Medications Ondansetron HCl (Zofran Tab) 4 mg Q6H PRN PO NAUSEA AND/OR VOMITING; Start at 09:00 Ondansetron HCl (Zofran Inj) 4 mg Q6H PRN IV NAUSEA AND/OR VOMITING; Start at 09:00 Acetaminophen (Tylenol Tab) 650 mg Q6H PRN PO PAIN LEVEL 1-3 OR FEVER; Start 06/12/17 at 09:00 Acetaminophen/ Hydrocodone Bitart ([place] (5/325)) 1 tab Q6H PRN PO MODERATE PAIN LEVEL 4-6; Start 06/12/17 at 09:00 Docusate Sodium (Colace) 100 mg Q12H PRN PO CONSTIPATION; Start 06/12/17 at 09 :00 Magnesium Hydroxide (Milk Of Mag) 30 ml DAILY PRN PO CONSTIPATION; Start 06/12 at 09:00 Bisacodyl (Dulcolax) 5 mg DAILY PRN PO CONSTIPATION; Start 06/12/17 at 09:00 Enoxaparin Sodium (Lovenox) 40 mg DAILY SC Last administered on 06/16/17 09: 37; Admin Dose 40 MG; Start 06/12/17 at 09:00 Ferrous Sulfate (Ferrous Sulfate (Ec)) 325 mg BID PO Last administered on 06/16 09:30; Admin Dose 325 MG; Start 06/12/17 at 09:00 Aspirin (Aspirin) 325 mg DAILY PO Last administered on 06/16/17 09:30; Admin Dose 325 MG; Start 06/14/17 at 09:00 Carvedilol (Coreg) 6.25 mg BID NGT Last administered on 06/16/17 09:31; Admin Dose 6.25 MG; Start 06/13/17 at 21:00 Voriconazole (Vfend) 200 mg BID PO Last administered on 06/16/17 09:33; Admin Dose 200 MG; Start 06/15/17 at 21:00 Meclizine HCl (Antivert) 12.5 mg ONCE PRN PO dizziness Last administered on 14:39; Admin Dose 12.5 MG; Start 06/16/17 at 14:30; Stop 06/16/17 at 23:00 CAROLINA MACHADO Jun 16, 2017 16:35
[2017-06-17] VITALS (10 sets, daily range): BP systolic 72–115; BP diastolic 52–66; PULSE 62–91; RESP 16–19
[2017-06-17] MEDS: ASPIRIN 325 MG TAB PO SCH (08:28)
[2017-06-17] MEDS: VORICONAZOLE 200 MG TAB PO SCH (08:28)
[2017-06-17] MEDS: FERROUS SULFATE (EC) 325 MG TAB PO SCH (08:29)
[2017-06-17] MEDS: ENOXAPARIN 40 MG/0.4 ML SYG SC SCH (08:30)
[2017-06-17] MEDS ORDERED: SOD CHLORIDE 0.9% 500 ML IV ONE (12:30)
--- NOTE | 2017-06-17 13:48 | CONS ---
Date/Time of Note Date/Time of Note DATE: 06/17/17 TIME: 13:47 Assessment/Plan Assessment/Plan Chief Complaint/Hosp Course SUBJECTIVE: No acute changes overnight. The patient is alert, feels good, eating lunch MICROBIOLOGY: Urine culture grew yeast, not Sophie albicans. ANTIMICROBIALS: Vfend. DIAGNOSTICS: CT of the abdomen and pelvis revealed Status post right hemicolectomy and right lower quadrant ileostomy formation without evidence of bowel obstruction, mild colonic diverticulosis, nonspecific fat infiltrative changes in the lower half of the right abdomen, presumably resolving postoperative changes. PHYSICAL EXAMINATION: GENERAL: Well-developed, well-nourished, elderly woman who is alert, in no distress. HEENT: Head atraumatic, normocephalic. Sclerae anicteric. Buccal mucosa pink. NECK: Supple. CHEST: Rise symmetrical. Breath sounds clear. HEART: S1, S2. ABDOMEN: Soft, bowel tones present. EXTREMITIES: Without cyanosis, edema. ASSESSMENT: 1. Fungal urinary tract infection. 2. Status post rapid atrial fibrillation and [id number] myocardial infarction. 3. History of colon cancer, status post resection with anastomotic leak and intra-abdominal abscess drainage. 4. Anemia. PLAN: Stable, continue voriconazole for 5 more days. DW staff Problems: Consultation Date/Type/Reason Admit Date/Time Jun 12, 2017 at 07:52 Type of Consultation: id Referring Provider: FATMATA DALE Exam/Review of Systems Vital Signs Vitals Vital Signs Date Time Temp Pulse Resp B/P Pulse Ox O2 Delivery O2 Flow Rate FiO2 06/17/17 12:36 98.0 06/17/17 12:21 69 06/17/17 11:50 18 72/52 100 Room Air 06/16/17 09:35 3.0 Intake and Output 06/16/17 06/16/17 06/17/17 15:00 23:00 07:00 Intake Total 100 ml 1060 ml 120 ml Output Total 400 ml Balance 100 ml 660 ml 120 ml Results Result Diagram: 06/15/17 0736 06/15/17 0736 Medications Medications Current Medications Ondansetron HCl (Zofran Tab) 4 mg Q6H PRN PO NAUSEA AND/OR VOMITING; Start at 09:00 Ondansetron HCl (Zofran Inj) 4 mg Q6H PRN IV NAUSEA AND/OR VOMITING; Start at 09:00 Acetaminophen (Tylenol Tab) 650 mg Q6H PRN PO PAIN LEVEL 1-3 OR FEVER; Start 06/12/17 at 09:00 Acetaminophen/ Hydrocodone Bitart ([place] (5/325)) 1 tab Q6H PRN PO MODERATE PAIN LEVEL 4-6; Start 06/12/17 at 09:00 Docusate Sodium (Colace) 100 mg Q12H PRN PO CONSTIPATION; Start 06/12/17 at 09 :00 Magnesium Hydroxide (Milk Of Mag) 30 ml DAILY PRN PO CONSTIPATION; Start 06/12 at 09:00 Bisacodyl (Dulcolax) 5 mg DAILY PRN PO CONSTIPATION; Start 06/12/17 at 09:00 Enoxaparin Sodium (Lovenox) 40 mg DAILY SC Last administered on 06/17/17 08: 30; Admin Dose 40 MG; Start 06/12/17 at 09:00 Ferrous Sulfate (Ferrous Sulfate (Ec)) 325 mg BID PO Last administered on 06/17 08:29; Admin Dose 325 MG; Start 06/12/17 at 09:00 Aspirin (Aspirin) 325 mg DAILY PO Last administered on 06/17/17 08:28; Admin Dose 325 MG; Start 06/14/17 at 09:00 Carvedilol (Coreg) 6.25 mg BID NGT Last administered on 06/17/17 08:29; Admin Dose 6.25 MG; Start 06/13/17 at 21:00 Voriconazole (Vfend) 200 mg BID PO Last administered on 06/17/17 08:28; Admin Dose 200 MG; Start 06/15/17 at 21:00 STEPHENIE WAGNER NP Jun 17, 2017 13:48
== END 2017-06-17 20:00 | disposition home health service (06) | DRG 757 ==
LOC: E/R 17:11 → MS3 06-12 07:52 → MS4 06-12 21:32
PROVIDERS: ADMIT Internal Medicine; ATTEND Internal Medicine
DX: B37.49 Other urogenital candidiasis (principal); I21.4 Non-ST elevation (NSTEMI) myocardial infarction; I95.9 Hypotension, unspecified; E87.5 Hyperkalemia; C18.9 Malignant neoplasm of colon, unspecified; E87.1 Hypo-osmolality and hyponatremia; E86.0 Dehydration; I47.1 Supraventricular tachycardia; D64.9 Anemia, unspecified
CPT/HCPCS: 36415; 71010; 74176; 78452; 80048; 80053; 81001; 81003; 82533; 82540; 82550; 82553; 83605; 83690; 83735; 83880; 83930; 83935; 84155; 84300; 84443; 84484; 85025; 87086; 93005; 93017; 93306; 96372; 96374; 96375; 97110; 97116; 97163; 97530; 99285; A9500; A9505; J0696; J1450; J1650; J2270; J2405; J2785; J3475; J7030; J7040

== ENCOUNTER 2017-07-24 11:23 | Emergency (ER) | END 2017-07-24 15:50 | disposition home or self-care (01) ==

== ENCOUNTER 2017-09-04 13:01 | Emergency (ER) | END 2017-09-04 22:54 | disposition home or self-care (01) ==

== ENCOUNTER 2017-11-19 15:14 | Inpatient (IN) | END 2017-11-25 19:50 | disposition home or self-care (01) | DRG 330 ==